=== PATIENT | male | born 1940 | race Caucasian/White ===

== ENCOUNTER 2018-03-05 09:22 | Emergency (ER) | payer MEDICARE, OTHER, SELFPAY | END 2018-03-05 12:45 | disposition home or self-care (01) | PROVIDERS: Emergency Provider Emergency Medicine; Visit Provider Emergency Medicine | DX: R07.89 Other chest pain (principal) | CPT/HCPCS: 71020; 71046; 80053; 84484; 85025; 85610; 85730; 93005; 93010; 96374; 99058; 99285; J1885 ==

== ENCOUNTER 2018-06-17 19:48 | Emergency (ER) | payer MEDICARE, OTHER, SELFPAY ==
[2018-06-17 19:52] VITALS: BP 147/67; PULSE 84; RESP 20; TEMP 37.2; O2SAT 97; BMI 23.1
--- NOTE | 2018-06-17 20:12 | ED.URI ---
HPI - URI/Sore Throat General Chief Complaint: Upper Respiratory Symptoms Stated Complaint: STATES HE HAS A COLD,SAYS TEMP IS 101 Time Seen by Provider: 06/17/18 20:12 Source: patient Mode of arrival: ambulatory Limitations: no limitations History of Present Illness HPI Narrative: The patient has been ill for about 3 days with congestion and cough. He had a sore throat initially but this has resolved. He has no ongoing sinus pressure or ear pain. His cough is nonproductive. He has a nonsmoker, he has no history of asthma. He is having no other ENT complaints, chest discomfort or abdominal symptoms. He did have an intermittent fever about 101?. He is afebrile and not coughing now. Related Data Home Medications Medication Instructions Recorded Confirmed clobetasol 0.05 TP PRN #0 03/06/13 multivitamin [Multiple Vitamins] 1 tab PO QDAY #0 03/06/13 atorvastatin [Lipitor] 10 mg PO QPM #0 07/05/16 cholecalciferol (vitamin D3) 1 tab PO QDAY #0 tab 08/03/16 [Vitamin D3] metoprolol succinate [Toprol XL] 25 mg PO QPM #0 03/05/18 Previous Rx's Medication Instructions Recorded metoprolol succinate 100 mg PO Q DAY #90 ea 12/01/16 warfarin [Coumadin] 2.5 - 5 mg PO QDAY #90 tab 09/14/17 Allergies Allergy/AdvReac Type Severity Reaction Status Date / Time No Known Drug Allergies Allergy Verified 06/17/18 19:55 Review of Systems Review of Systems All systems reviewed & are unremarkable except as noted in HPI and below Constitutional Denies chills, Denies fever(s), Denies headache(s), Denies lethargy and Denies weakness Eyes Denies change in vision, Denies eye discharge, Denies irritation and Denies loss of vision ENT Ears, Nose, Mouth, and Throat: Denies dizziness, Denies headache(s), Denies neck pain, Reports post nasal drip, Reports sore throat and Denies throat swelling Cardiovascular Denies chest pain, Denies irregular heart rhythm, Denies lightheadedness, Denies palpitations, Denies dyspnea, Denies dyspnea on exertion and Denies orthopnea Respiratory Reports cough, Denies dyspnea, Denies dyspnea on exertion and Denies wheezing Musculoskeletal Denies neck pain Neurologic Denies dizziness, Denies headache(s), Denies loss of vision and Denies weakness Endocrine Denies palpitations Allergic/Immunologic Denies throat swelling and Denies wheezing [facility] Surgical History Status post cholecystectomy Social History Smoking Status: Former smoker Exam Initial Vital Signs Initial Vital Signs: Vital Signs Temperature 98.9 F 06/17/18 19:52 Pulse Rate 84 06/17/18 19:52 Respiratory Rate 20 06/17/18 19:52 Blood Pressure 147/67 H 06/17/18 19:52 Pulse Oximetry 97 06/17/18 19:52 Const General: cooperative, comfortable and well developed Nutritional Appearance: well nourished Orientation: alert, awake, oriented x3 and not confused HENMT Head: normocephalic and atraumatic Ears: external ears normal, TM normal on the right and TM normal on the left (Clear fluid behind the left TM, no erythema is present.) Nose: external nose normal and No nasal discharge Face and sinus: sinuses nontender and face symmetric Mouth: oral mucosae normal and moist mucous membranes Throat: posterior oropharynx normal Eyes Conjunctivae: conjunctivae normal Neck Neck: full ROM, no meningeal signs and No lymphadenopathy Chest Chest: normal inspection of the chest Resp Effort & Inspection: normal respiratory effort and able to speak in complete sentences Auscultation: clear to auscultation bilaterally, no rales, no rhonchi and no wheezes Cardio Rate: regular rate Rhythm: regular rhythm Heart Sounds: no click, no gallops, no murmurs and no rubs Pulses: normal peripheral pulses Course Vital Signs - 8 hr 06/17/18 19:52 Temperature 98.9 F Pulse Rate 84 Respiratory Rate 20 Blood Pressure 147/67 H Pulse Oximetry 97 Discharge Plan Departure Patient Disposition: Home, Self-Care Clinical Impression: Upper respiratory infection, viral Discharge Date/Time: 06/17/18 20:28 Interventions: ED Discharge Assessment Last Done: 06/17/18 20:28 Instructions: DI for Viral Upper Respiratory Infection -- Adult Activity Restrictions/Additional Instructions: Shallow hour and steam year sinuses frequently. Mucinex as needed for congestion, follow package instructions. Return here if symptoms increase significantly, such as a productive cough or persistent fever. Prescriptions: No Action multivitamin [Multiple Vitamins] 1 EACH tablet 1 tab PO QDAY Qty: 0 RF: 0 clobetasol 0.05 % ointment 0.05 TP PRN Qty: 0 RF: 0 atorvastatin [Lipitor] 10 MG tablet 10 mg PO QPM Qty: 0 RF: 0 cholecalciferol (vitamin D3) [Vitamin D3] 2,000 UNIT tablet 1 tab PO QDAY Qty: 0 RF: 0 metoprolol succinate 100 MG tablet extended release 24 hr 100 mg PO Q DAY Qty: 90 RF: 3 warfarin [Coumadin] 5 MG tablet 2.5 - 5 mg PO QDAY Qty: 90 RF: 3 metoprolol succinate [Toprol XL] 25 MG tablet extended release 24 hr 25 mg PO QPM Qty: 0 RF: 0
== END 2018-06-17 20:28 | disposition home or self-care (01) ==
PROVIDERS: Emergency Provider Emergency Medicine; PCP Family Medicine
DX: J06.9 Acute upper respiratory infection, unspecified (principal); B97.89 Other viral agents as the cause of diseases classified elsewhere
CPT/HCPCS: 99282

== ENCOUNTER → 2018-07-23 08:44 | Outpatient (CLI) | payer MEDICARE, OTHER, SELFPAY | PROVIDERS: PCP Family Medicine; Visit Provider Urology | DX: R97.20 Elevated prostate specific antigen [PSA] (principal) | CPT/HCPCS: 36415; 84153 ==

== ENCOUNTER 2019-04-09 14:04 | Emergency (ER) | payer MEDICARE, OTHER, SELFPAY ==
[2019-04-09 14:07] VITALS: BP 133/77; PULSE 97; RESP 20; TEMP 37.1; O2SAT 97; BMI 21.7
[2019-04-09] MEDS: SODIUM CHLORIDE 0.9% 1,000 ML 150 ML IV (14:26)
[2019-04-09 14:31] LABS: Add Manual Diff / Slide Review NO; Basophils Absolute Auto 0 /uL (0-100); Basophils Percent Auto 0.7 % (0-2); Eosinophils Absolute Auto 200 /uL (0-450); Eosinophils Percent Auto 3.9 % (2-4); Hematocrit 40.2 % (41-53); Hemoglobin 13.6 g/dL (13.5-17.5); Lymphocytes Absolute Auto 1200 /uL (1100-4500); Mean Corpuscular HGB Conc 33.8 % (30-36); Mean Corpuscular Hemoglobin 29.9 PG (26-34); Mean Corpuscular Volume 88.3 fL (80-100); Monocytes Absolute Auto 500 /uL (0-900); Monocytes Percent Auto 8.6 % (3-14); Neutrophils Absolute Auto 3800 /uL (1500-7000); Neutrophils Percent Auto 65.8 % (50-75); Platelet Count 289 X10^3/uL (150-400); Red Blood Cell Count 4.56 X10^6/uL (4.5-5.9); Red Cell Distribution Width 14.2 % (11.6-14.8); White Blood Cell Count 5.7 X10^3/uL (4.5-11.0)
[2019-04-09 14:46] LABS: Blood Urea Nitrogen 16 mg/dL (9-20); Calcium 8.8 mg/dL (8.4-10.2); Carbon Dioxide 28 mmol/L (22-32); Chloride 103 mmol/L (98-107); Estimated Glomerular Filt Rate > 60.0 mL/min (>60); Glucose 95 mg/dL (80-110); HEMOLYSIS < 15 (0-50); Potassium 3.9 mmol/L (3.4-5.1); Sodium 136 mmol/L (137-145)
[2019-04-09 14:48] VITALS: BP 138/78; PULSE 80; RESP 14; O2SAT 95
--- NOTE | 2019-04-09 14:56 | DI.CT.S_ITS ---
PROCEDURE: CT HEAD/BRAIN WO CON INDICATIONS: dizzyness w/o trauma, does not change w/ position TECHNIQUE: Noncontrast 4.5 mm thick angled axial sections acquired from the foramen magnum to the vertex, with coronal and sagittal reformats. For radiation dose reduction, the following was used: automated exposure control, adjustment of mA and/or kV according to patient size. COMPARISON: None. FINDINGS: Image quality: Excellent. CSF spaces: Basal cisterns are patent. No extra-axial fluid collections. The ventricles are symmetric in size and shape. Brain: No intracranial bleeds or masses. There is cerebral volume loss for age, with resultant ventricular and sulcal prominence. There are periventricular and deep white matter chronic small vessel ischemic changes. There is intracranial internal carotid artery and vertebral artery atherosclerosis. Skull and face: Calvarium and visualized facial bones appear intact, without suspicious lesions. Sinuses: Mucosal thickening noted in the sphenoid sinuses and the anterior left ethmoid air cells. The mastoids are clear. IMPRESSION: No acute intracranial disease process. Dictated by: Shahida Elliott MD, PhD on 04/09/2019 at 15:15 Approved by: Shahida Elliott MD, PhD on 04/09/2019 at 15:17
[2019-04-09 14:58] LABS: Troponin I < 0.012 ng/mL (0.01-0.034)
[2019-04-09 16:25] VITALS: BP 121/73; PULSE 74; RESP 15; O2SAT 98
--- NOTE | 2019-04-11 19:10 | ED_ITS ---
HPI - Dizziness General Chief Complaint: Dizziness Stated Complaint: Dizziness t-2 Time Seen by Provider: 04/09/19 14:44 Source: patient Mode of arrival: ambulatory Limitations: no limitations History of Present Illness HPI Narrative: Patient states that he has felt somewhat lightheaded for the last couple of days. He states that he has occasionally had this feeling before, usually associated with his atrial fibrillation, but this time, it seems to have lasted a longer period patient states that he has noticed it most often when he bends over to pick things up, or when he rises from a sitting or lying position. Patient denies any chest pain or shortness of breath. No fevers or cough. No nausea or vomiting. No diarrhea. No dysuria or back pain. No changes to his medication doses recently. No other complaints at this time. Patient does note that perhaps he has not been drinking enough water. Related Data Home Medications Medication Instructions Recorded Confirmed clobetasol 1 applic TOPICAL BID PRN #0 03/06/13 04/09/19 multivitamin [Multiple Vitamins] 1 tab PO DAILY #0 03/06/13 04/09/19 atorvastatin [Lipitor] 10 mg PO QPM #0 07/05/16 04/09/19 cholecalciferol (vitamin D3) 2,000 unit PO DAILY #0 tab 08/03/16 04/09/19 [Vitamin D3] metoprolol succinate [Toprol XL] 25 mg PO QPM #0 03/05/18 04/09/19 Iron High Potency 27 mg PO DAILY 04/09/19 04/09/19 Ocuvite 30unit 5mg 150mg 1 cap PO DAILY 04/09/19 04/09/19 finasteride 5 mg PO Q OTHER DAY 04/09/19 04/09/19 metoprolol succinate 100 mg PO QAM 04/09/19 04/09/19 tamsulosin 0.4 mg PO DAILY 04/09/19 04/09/19 Previous Rx's Medication Instructions Recorded warfarin 5 mg tablet See Rx Instructions .ROUTE 11/01/18 .COMPLEX #90 tab Allergies Allergy/AdvReac Type Severity Reaction Status Date / Time No Known Drug Allergies Allergy Verified 04/09/19 14:07 Review of Systems Constitutional Denies chills, Denies fever(s), Denies lethargy and Denies weakness Eyes Denies change in vision, Denies eye discharge, Denies irritation and Denies loss of vision ENT Ears, Nose, Mouth, and Throat: Denies change in voice, Denies neck pain and Denies sore throat Cardiovascular Denies chest pain, Denies irregular heart rhythm, Reports lightheadedness, Denies palpitations, Denies dyspnea, Denies dyspnea on exertion and Denies orthopnea Respiratory Denies cough, Denies dyspnea, Denies dyspnea on exertion and Denies wheezing Gastrointestinal Gastrointestinal: Denies abdominal pain, Denies change in bowel habits, Denies diarrhea, Denies nausea and Denies vomiting Genitourinary Denies hematuria, Denies flank pain, Denies urinary incontinence and Denies urinary urgency Musculoskeletal Denies neck pain Integumentary/Breasts Denies pruritus, Denies erythema, Denies rash and Denies wounds Neurologic Denies confusion, Denies loss of vision and Denies weakness Psychiatric Denies anxiety, Denies confusion, Denies depression, Denies homicidal ideation and Denies suicidal ideation Endocrine Denies palpitations Hematologic/Lymphatic Denies easy bruising Allergic/Immunologic Denies wheezing [facility] Medical History Orthostatic lightheadedness (Acute) Acute dehydration (Acute) Atrial fibrillation (Acute) Atrial fibrillation with rapid ventricular response (Acute) Chest pressure (Acute) Pleural effusion (Acute) Atypical chest pain (Acute) 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) Incomplete emptying of bladder (02/16/16) 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) Essential hypertension (02/16/16) Chronic atrial fibrillation (01/02/18) Surgical History Status post cholecystectomy Social History Smoking Status: Former smoker Social History Smoking Status: Former smoker Exam Initial Vital Signs Initial Vital Signs: Vital Signs Temperature 98.7 F 04/09/19 14:07 Pulse Rate 97 H 04/09/19 14:07 Respiratory Rate 20 04/09/19 14:07 Blood Pressure 133/77 04/09/19 14:07 Pulse Oximetry 97 04/09/19 14:07 Const General: cooperative and well developed Nutritional Appearance: well nourished Orientation: alert, awake, oriented x3 and not confused [facility] Head: normocephalic and atraumatic Ears: external ears normal Nose: external nose normal and No nasal discharge Face and sinus: face symmetric and No dry mucous membranes Mouth: oral mucosae normal and moist mucous membranes Teeth and gingiva: dentition normal Eyes General: appearance normal, both eyes and all related structures Eyelids: eyelids normal Conjunctivae: conjunctivae normal Sclera: sclerae normal Pupils: PERRL EOM: EOM intact bilaterally Neck Neck: normal visual inspection, trachea midline, No lymphadenopathy, No midline deformity and No JVD Lymphatic: No lymphedema Chest Chest: normal inspection of the chest Resp Effort & Inspection: normal respiratory effort, able to speak in complete sentences, no respiratory distress and no use of accessory muscles Auscultation: clear to auscultation bilaterally, no rales, no rhonchi and no wheezes Cardio Rate: regular rate Rhythm: regular rhythm Heart Sounds: no click, no gallops, no murmurs and no rubs Pulses: normal peripheral pulses GI Inspection: non-distended Palpation: soft, no hepatosplenomegaly, No guarding, No pulsatile mass and No tender Auscultation: normal bowel sounds Back/Spine/Pelvis Back: No CVA tenderness Cervical Spine: cervical ROM normal and No pain with cervical ROM Thoracic/Lumbar Spine: thoracic and lumbar spine normal to inspection Skin General: no rashes or lesions noted, No jaundice and No petechiae Neuro General: alert, oriented x3, gait normal and no focal motor deficits Speech: speech normal Extrem General: full ROM, no clubbing, cyanosis or edema, no pedal edema and no calf tenderness Psych Appearance: well kempt Mental Status: mental status grossly normal Attitude: cooperative Thought Content: normal and suicidality Judgment: judgment good Course Course Narrative: The patient was stable and well-appearing in the emergency department. He was worked up with laboratory studies, head CT and EKG, and was given a L of 0.9 normal saline. Patient was found to be feeling better after the above interventions. No cause of the patient's lightheadedness was found, other than possibly some volume contraction and the atrial fibrillation, though patient was rate controlled. We have discussed the importance of drinking plenty of fluids, and we have also discussed the need for follow-up with the patient's primary care physician. Orders Ordered: Discontinued Medications Sodium Chloride (Normal Saline 0.9%) 1,000 mls @ 150 mls/hr IV CONT REN Last Infusion: 04/09/19 15:48 Dose: 0 mls/hr Infusion: 04/09/19 14:26 Dose: 1,000 mls/hr Admin: 04/09/19 14:26 Dose: 150 mls/hr Vital Signs - 8 hr 04/09/19 14:07 04/09/19 14:48 Temperature 98.7 F Pulse Rate 97 H 80 Respiratory Rate 20 14 Blood Pressure 133/77 Blood Pressure [Left Arm] 138/78 Pulse Oximetry 97 95 MDM - Dizziness Medical Records Attestation: I reviewed the patient's medical records. Lab Data Attestation: I reviewed the patient's lab results. Result diagrams: 04/09/19 14:20 04/09/19 14:20 Lab Results 04/09/19 04/09/19 Range/Units 14:20 14:20 WBC 5.7 (4.5-11.0) X10^3/uL RBC 4.56 (4.5-5.9) X10^6/uL Hgb 13.6 (13.5-17.5) g/dL Hct 40.2 L (41-53) % MCV 88.3 (80-100) fL MCH 29.9 (26-34) PG MCHC 33.8 (30-36) % RDW 14.2 (11.6-14.8) % Plt Count 289 (150-400) X10^3/uL Neut % (Auto) 65.8 (50-75) % Lymph % (Auto) 21.0 L (25-40) % [place] % (Auto) 8.6 (3-14) % Eos % (Auto) 3.9 (2-4) % Baso % (Auto) 0.7 (0-2) % Neut # (Auto) 3800 (8895-9160) /uL Lymph # (Auto) 1200 (1025-2693) /uL [place] # (Auto) 500 (0-900) /uL Eos # (Auto) 200 (0-450) /uL Baso # (Auto) 0 (0-100) /uL Sodium 136 L (137-145) mmol/L Potassium 3.9 (3.4-5.1) mmol/L Chloride 103 (98-107) mmol/L Carbon Dioxide 28 (22-32) mmol/L BUN 16 (9-20) mg/dL Creatinine 1.00 (0.66-1.25) mg/dL Estimated GFR > 60.0 (>60) mL/min BUN/Creatinine Ratio 16.0 (6-22) Glucose 95 (80-110) mg/dL Calcium 8.8 (8.4-10.2) mg/dL Troponin I < 0.012 (0.01-0.034) ng/mL Imaging Data CT scan - head: Radiologist's impression: Chart Viewer Diagnostics DATE TYPE STATUS AUTHOR Hx 04/09/19 14:56 Shahida Elliott David C 78, M0 1940 DEP ER, ED.LOC - Main ED 185.42cm 74.843kg BMI: 21.8kg/m? Dizziness Search Chart NF - Not included in interaction checking ONSET 02/16/16 02/16/16 02/16/16 02/16/16 01/02/18 04/09/19 16:25 Nestor Mercedes 78 M 1940 [place] [address] CT Scan Report Signed Patient: Nestor Mercedes CMR#: [id number] : 8Acct:[id number] Age/Sex: 78 / MDate of Service: 04/09/19 Loc: ED Accession Number: [id number] Procedure: CT head/brain wo con Ordering Provider: Kavitha Salmon P.A-C PROCEDURE: CT HEAD/BRAIN WO CON INDICATIONS: dizzyness w/o trauma, does not change w/ position TECHNIQUE: Noncontrast 4.5 mm thick angled axial sections acquired from the foramen magnum to the vertex, with coronal and sagittal reformats. For radiation dose reduction, the following was used: automated exposure control, adjustment of mA and/or kV according to patient size. COMPARISON: None. FINDINGS: Image quality: Excellent. CSF spaces: Basal cisterns are patent. No extra-axial fluid collections. The ventricles are symmetric in size and shape. Brain: No intracranial bleeds or masses. There is cerebral volume loss for age, with resultant ventricular and sulcal prominence. There are periventricular and deep white matter chronic small vessel ischemic changes. There is intracranial internal carotid artery and vertebral artery atherosclerosis. Skull and face: Calvarium and visualized facial bones appear intact, without suspicious lesions. Sinuses: Mucosal thickening noted in the sphenoid sinuses and the anterior left ethmoid air cells. The mastoids are clear. IMPRESSION: No acute intracranial disease process. Dictated by: Shahida Elliott MD, PhD on 04/09/2019 at 15:15 Approved by: Shahida Elliott MD, PhD on 04/09/2019 at 15:17 ECG Data Attestation: I personally reviewed and interpreted this ECG as follows: (See below) Interpretation: Twelve lead EKG performed April 01, 2019 at 2:12 p.m., as follows: Irregular ventricular rhythm with a rate of 86 beats per minute P waves undetectable QRS duration 87 millisecond QTC interval 410 millisecond Normal axis No significant ST T wave changes Interpretation: Atrial fibrillation with normal rate; no signs of acute ischemia; abnormal EKG as interpreted by ED MD. Discharge Plan Departure Patient Disposition: Home Clinical Impression: Orthostatic lightheadedness, Acute dehydration Discharge Date/Time: 04/09/19 17:02 Interventions: ED Discharge Assessment Last Done: 04/09/19 17:02 Instructions: DI for Dehydration -- Adult, DI for Dizziness-Nonvertigo Activity Restrictions/Additional Instructions: Your labs look good. Your EKG shows atrial fibrillation, but your heart rate is normal. It is very important that you drink plenty of water. This will prevent the lightheadedness you have been experiencing when you stand up or sit up. If you continue to have lightheadedness despite drinking at least a cups of water per day, you may need to talk to your doctor about your blood pressure medications, and whether they need to be changed. Prescriptions: No Action multivitamin [Multiple Vitamins] 1 EACH tablet 1 tab PO DAILY Qty: 0 RF: 0 clobetasol 0.05 % ointment 1 applic topical BID PRN (Reason: as directed) Qty: 0 RF: 0 atorvastatin [Lipitor] 10 MG tablet 10 mg PO QPM Qty: 0 RF: 0 cholecalciferol (vitamin D3) [Vitamin D3] 2,000 UNIT tablet 2,000 unit PO DAILY Qty: 0 RF: 0 metoprolol succinate [Toprol XL] 25 MG tablet extended release 24 hr 25 mg PO QPM Qty: 0 RF: 0 warfarin 5 mg tablet See Rx Instructions .ROUTE .COMPLEX Qty: 90 RF: 3 tamsulosin 0.4 mg capsule 0.4 mg PO DAILY RF: 0 finasteride 5 mg tablet 5 mg PO Q OTHER DAY RF: 0 metoprolol succinate 100 MG tablet extended release 24 hr 100 mg PO QAM RF: 0 Iron High Potency 27 mg tablet 27 mg PO DAILY RF: 0 Ocuvite 30unit 5mg 150mg 1 cap PO DAILY RF: 0 Referrals: Eloina Armenta DO [Primary Care Provider] -
== END 2019-04-09 17:02 | disposition home or self-care (01) ==
PROVIDERS: Emergency Provider Emergency Medicine; PCP Family Medicine
DX: I48.91 Unspecified atrial fibrillation (principal); R42 Dizziness and giddiness; E86.0 Dehydration
CPT/HCPCS: 36591; 70450; 80048; 84484; 85025; 93005; 96360; 99283; 99285

== ENCOUNTER → 2019-04-15 07:50 | Outpatient (CLI) | payer MEDICARE, OTHER, SELFPAY ==
--- NOTE | 2019-04-15 | DI.ECHO.S_ITS ---
[facility] +---------+ : : [address] : : : : [id number] : : : : Phone: [phone]+ Echocardiogram Report + + :Name: DOMINIC AGUILAR Study Date: 04/15/2019 Height: 73 in : :[facility] Weight: 173 lb : : Gender: Male BSA: 2.0 m2 : :: 1940 Age: 78 yrs BP: 110/60 mmHg: :Reason For Study: Atrial fibrillation : :Ordering Physician: Carlos : :Alexsandra Grant Performed By: Hermelinda Castro : :Referring: Eloina Armenta : + + Interpretation Summary 1) Normal left ventricular thickness, size, and systolic function (EF 55-60%). 2) There are no obvious focal wall motion abnormalities noted but poor endocardial definition reduces the sensitivity for the detection of such. 3) Grossly, mildly enlarged RV with normal function. 4) Moderately enlarrged biatria. 5) There is mild to moderate aortic stenosis (valve area 1.5cm2, mean gradient 7mmHg, severe ratio 0.36). 6) There is mild to moderate mitral regurgitation. 7) The ascending aorta is mildly enlarged at 4.2cm. 8) Compared to the Echo done 05/17/2016, mild to moderate aortic stenosis is present on this study. Procedure: A two-dimensional transthoracic echocardiogram with color flow and Doppler was performed. The study quality was technically good. Comparison is made with the echocardiogram of 05-17-16. The patient was in atrial fibrillation with heart rates between 79-89 bpm during the exam. Left Ventricle: The left ventricle is normal in size. There is normal left ventricular wall thickness. The ejection fraction is estimated to be 55-60%. Left ventricular systolic function is normal. There are no obvious focal wall motion abnormalities noted but poor endocardial definition reduces the sensitivity for the detection of such. Diastolic function could not be accurately assessed due to atrial fibrillation. Right Ventricle: Grossly, mildly enlarged RV with normal function. Atria: The left atrium is moderately dilated. The right atrium is moderately dilated. The interatrial septum is intact with no evidence for an atrial septal defect. Mitral Valve: The mitral valve leaflets appear mildly thickened, but open well. There is mild to moderate mitral regurgitation. Aortic Valve: The calculated aortic valve area is 1.5 cm2. The aortic valve area is 0.9 centimeters squared by planimetry. The peak aortic velocity is 1.7 m/sec. The peak aortic velocity on the previous exam was 1.9 m/sec. The aortic valve mean gradient is 7 mmHg. Severity ratio is 0.36. There is mild to moderate aortic stenosis. No aortic regurgitation is present. Tricuspid Valve: The tricuspid valve leaflets are thin and pliable. There is mild to moderate tricuspid regurgitation. The right ventricular systolic pressure is estimated to be at least 25 mmHg based on an estimated right atrial pressure of 3 mm Hg. Pulmonic Valve: The pulmonic valve is not well seen, but is grossly normal. There is no pulmonic valvular regurgitation. Great Vessels: The aortic root is normal size. The ascending aorta is mildly enlarged. There has been no significant change since the previous study. The aortic arch is mildly enlarged. The aortic arch measures similar compared to the previous study. The IVC is of normal diameter and collapses greater than 50% with a sniff. This suggests a low right atrial pressure of 3 mm Hg. Pericardium/ Pleura There is no pericardial effusion. There is no pleural effusion. MMode/2D Measurements & Calculations LVIDd: 4.5 cm LVOT diam: 2.3 cm LVIDs: 3.0 cm Ao root diam: 3.7 cm FS: 32.9 % Aortic Jxn: 3.1 cm EPSS: 0.53 cm asc Aorta Diam: 4.2 cm IVSd: 0.88 cm Ao Arch Diam (Prox Trans): 4.0 cm LVPWd: 0.90 cm LV whitaker. diameter/BSA (cm/m^2): 2.2 LV sys. diameter/BSA (cm/m^2): 1.5 LA dimension: 4.1 cm RA long axis: 6.2 cm LA A2 area: 27.2 cm2 RA area: 28.4 cm2 LA A4 area: 27.5 cm2 RA vol: 110.8 ml LA length (vol): 6.4 cm RA : 54.7 ml/m2 LA vol: 100.0 ml IVC diam: 2.0 cm LA vol index: 49.4 ml/m2 CIERRA (plan): 0.87 cm2 Doppler Measurements & Calculations Ao V2 max: 174.3 cm/sec LVOT Max Lazaro: 70.7 cm/sec Ao V2 mean: 126.2 cm/sec LV V1 max P.0 mmHg Ao max P.1 mmHg LV V1 VTI: 14.7 cm Ao mean P.2 mmHg CIERRA(I,D): 1.5 cm2 Ao V2 VTI: 40.6 cm CIERRA(V,D): 1.7 cm2 sev ratio: 0.36 CIERRA indexed to BSA (cm^2/m^2): 0.73 MV P1/2t: 49.7 msec TR max lazaro: 238.3 cm/sec MVA(VTI): 4.3 cm2 TR max P.7 mmHg MR ERO: 0.16 cm2 PA V2 max: 56.9 cm/sec PA V2 mean: 34.1 cm/sec PA mean P.58 mmHg PA Accel Time: 0.13 sec MV V2 mean: 50.7 cm/sec MV P1/2t max lazaro: 103.1 cm/sec MV mean P.5 mmHg MVA(P1/2t): 4.4 cm2 MV V2 VTI: 14.1 cm MR flow rate: 75.9 cm3/sec SV(LVOT): 60.2 ml MR PISA radius: 0.56 cm Reading Physician:12:45 PM
== END ==
PROVIDERS: PCP Family Medicine; Visit Provider Internal Medicine Cardiovascular Disease
DX: I08.3 Combined rheumatic disorders of mitral, aortic and tricuspid valves (principal); I77.89 Other specified disorders of arteries and arterioles; I48.91 Unspecified atrial fibrillation
CPT/HCPCS: 93306

== ENCOUNTER → 2019-04-22 07:52 | Outpatient (CLI) | payer MEDICARE, OTHER, SELFPAY ==
[2019-04-22 08:27] LABS: Add Manual Diff / Slide Review NO; Basophils Absolute Auto 0 /uL (0-100); Basophils Percent Auto 0.7 % (0-2); Eosinophils Absolute Auto 300 /uL (0-450); Hematocrit 42.4 % (41-53); Hemoglobin 14.3 g/dL (13.5-17.5); Lymphocytes Absolute Auto 1000 /uL (1100-4500); Lymphocytes Percent Auto 19.5 % (25-40); Mean Corpuscular HGB Conc 33.7 % (30-36); Mean Corpuscular Hemoglobin 29.8 PG (26-34); Mean Corpuscular Volume 88.5 fL (80-100); Monocytes Absolute Auto 500 /uL (0-900); Monocytes Percent Auto 10.3 % (3-14); Neutrophils Absolute Auto 3400 /uL (1500-7000); Neutrophils Percent Auto 64.5 % (50-75); Platelet Count 309 X10^3/uL (150-400); Red Blood Cell Count 4.79 X10^6/uL (4.5-5.9); Red Cell Distribution Width 14.7 % (11.6-14.8); White Blood Cell Count 5.3 X10^3/uL (4.5-11.0)
[2019-04-22 08:39] LABS: Prothrombin Time 23.4 SECONDS (10.1-12.7)
[2019-04-22 08:48] LABS: Blood Urea Nitrogen 16 mg/dL (9-20); Carbon Dioxide 31 mmol/L (22-32); Chloride 100 mmol/L (98-107); Cholesterol 127 mg/dL (140-199); Estimated Glomerular Filt Rate > 60.0 mL/min (>60); Glucose 105 mg/dL (80-110); HDL Cholesterol 37 mg/dL (40-60); HEMOLYSIS < 15 (0-50); LDL Cholesterol Calculated 65 mg/dL (<100); Sodium 137 mmol/L (137-145); Triglycerides 124 mg/dL (35-150)
== END ==
PROVIDERS: Nurse Practitioner; PCP Family Medicine; Visit Provider Internal Medicine Cardiovascular Disease
DX: I10 Essential (primary) hypertension (principal); I48.91 Unspecified atrial fibrillation; E78.5 Hyperlipidemia, unspecified
CPT/HCPCS: 36415; 80048; 80061; 85025; 85610

== ENCOUNTER → 2019-08-01 09:14 | Outpatient (CLI) | payer MEDICARE, OTHER, SELFPAY ==
[2019-08-01 11:15] LABS: Prostate Specific Antigen 1.99 ng/mL (0.10-4.00)
== END ==
PROVIDERS: Family Provider Family Medicine; PCP Family Medicine; Visit Provider Urology
DX: R97.20 Elevated prostate specific antigen [PSA] (principal)
CPT/HCPCS: 36415; 84153

== ENCOUNTER 2019-10-16 01:32 | Emergency (ER) | payer MEDICARE, OTHER, SELFPAY ==
[2019-10-16 01:40] VITALS: BP 158/86; PULSE 61; RESP 16; TEMP 36.6; O2SAT 96; BMI 22.8
--- NOTE | 2019-10-16 01:49 | DI.CT.S_ITS ---
PROCEDURE: CT HEAD/BRAIN WO CON INDICATIONS: vertigo symptoms when laying flat, not worse w/ movement TECHNIQUE: Noncontrast 4.5 mm thick angled axial sections acquired from the foramen magnum to the vertex, with coronal and sagittal reformats. For radiation dose reduction, the following was used: automated exposure control, adjustment of mA and/or kV according to patient size. COMPARISON: [facility], CT, CT HEAD/BRAIN WO CON, 04/09/2019, 14:59. FINDINGS: Image quality: Excellent. CSF spaces: Basal cisterns are patent. No extra-axial fluid collections. The ventricles are symmetric in size and shape. Brain: No intracranial bleeds or masses. There is cerebral volume loss for age, with resultant ventricular and sulcal prominence. There are periventricular and deep white matter chronic small vessel ischemic changes. There is intracranial internal carotid artery and vertebral artery atherosclerosis. Skull and face: Calvarium and visualized facial bones appear intact, without suspicious lesions. Sinuses: Mucosal thickening involving the anterior left ethmoid air cells and the sphenoid sinuses is stable compared to prior exam. The mastoids are clear. IMPRESSION: No acute intracranial disease process. Dictated by: Shahida Elliott MD, PhD on 10/16/2019 at 7:17 Approved by: Shahida Elliott MD, PhD on 10/16/2019 at 7:20
--- NOTE | 2019-10-16 01:50 | ED_ITS ---
HPI - Dizziness General Chief Complaint: Dizziness Stated Complaint: lightheaded, dizzy head spinning when he layed jd Time Seen by Provider: 10/16/19 01:34 Source: patient and old records reviewed Mode of arrival: Family Vehicle Limitations: no limitations History of Present Illness HPI Narrative: An 79-year-old male who comes in with complaint of lightheadedness which he states is typical for him. He also states it feels like the room is spinning when he lays down. He states that is new in started about 2 hours prior to arrival. He states only when he lays flat if he separate or even sitting up in a chair he does not appreciated. He states if he moves his head side to side or up and down does not worsening. He states he has not had this spinning sensation in the past. He does have history of tinnitus regularly but states he was in the [place] and then work at the [employer] and was been longstanding tinnitus. Denies fevers, had a little nasal congestion recently. No ear pain. He denies any vision changes other than occasional blurred vision. Denies any chest pain, no shortness of breath, no nausea or vomiting no other GI or new urinary symptoms. Patient denies any numbness, weakness, no difficulty with speech, no facial droop he has not appreciated any difficulty with walking. Patient states he is on warfarin for atrial fibrillation, he has not had any new medications. Related Data Home Medications Medication Instructions Recorded Confirmed clobetasol 1 applic TOPICAL BID PRN #0 03/06/13 08/09/19 multivitamin [Multiple Vitamins] 1 tab PO DAILY #0 03/06/13 08/09/19 atorvastatin [Lipitor] 10 mg PO QPM #0 07/05/16 08/09/19 cholecalciferol (vitamin D3) 2,000 unit PO DAILY #0 tab 08/03/16 08/09/19 [Vitamin D3] metoprolol succinate [Toprol XL] 25 mg PO QPM #0 03/05/18 08/09/19 Iron High Potency 27 mg PO DAILY 04/09/19 08/09/19 Ocuvite 30unit 5mg 150mg 1 cap PO DAILY 04/09/19 08/09/19 finasteride 5 mg PO Q OTHER DAY 04/09/19 08/09/19 metoprolol succinate 100 mg PO QAM 04/09/19 08/09/19 tamsulosin 0.4 mg PO DAILY 04/09/19 08/09/19 Previous Rx's Medication Instructions Recorded warfarin 5 mg tablet See Rx Instructions .ROUTE 11/01/18 .COMPLEX #90 tab meclizine 25 mg PO TID PRN #14 tab 10/16/19 Allergies Allergy/AdvReac Type Severity Reaction Status Date / Time No Known Drug Allergies Allergy Verified 08/09/19 10:05 Review of Systems Review of Systems ROS Unobtainable: All systems reviewed & are unremarkable except as noted in HPI and below Constitutional Constitutional: Denies chills, Denies fever(s), Denies frequent falls, Denies headache(s), Denies lethargy and Denies weakness Eyes Eyes: Reports blurry vision (Sometimes) ENT Ears, Nose, Mouth, and Throat: Reports vertigo, Denies ear discharge, Denies otalgia, Denies headache(s), Reports nasal congestion, Denies neck pain, Denies disequilibrium and Denies other (Facial droop) Cardiovascular Cardiovascular: Denies chest pain, Denies syncope, Denies rapid heart rate, Denies irregular heart rhythm, Denies lightheadedness, Denies radiating jaw, neck or arm pain, Denies palpitations, Denies dyspnea, Denies dyspnea on exertion and Denies orthopnea Respiratory Respiratory: Denies chest congestion, Denies cough, Denies dyspnea and Denies dyspnea on exertion Gastrointestinal Gastrointestinal: Denies abdominal pain, Denies change in bowel habits, Denies diarrhea, Denies nausea and Denies vomiting Genitourinary Genitourinary: Denies hematuria, Denies flank pain, Denies urinary frequency, Denies urinary hesitancy and Denies urinary urgency Musculoskeletal Musculoskeletal: Denies abnormal gait, Denies back pain, Denies limited range of motion, Denies muscle weakness, Denies neck pain, Denies numbness and Denies tingling Integumentary/Breasts Skin/Breast: Denies rash Neurologic Neurologic: Reports as per HPI, Denies abnormal movements, Denies abnormal speech, Denies abnormal gait, Denies confusion, Reports vertigo, Denies syncope, Denies frequent falls, Denies headache(s), Denies focal weakness, Denies numbness, Denies sensory deficit, Denies tingling, Denies paresthesias, Denies disequilibrium and Denies weakness Psychiatric Psychiatric: Denies confusion Endocrine Endocrine: Denies palpitations 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 HEENT: Atraumatic, pupils are equal round reactive to light, extraocular movem ents are intact, mild nytagmus on lateral gaze, nares are clear, TMs are clear with no fluid, there is no conjunctival pallor. Throat is clear without any exudates, erythema, tonsillar enlargement or uvular deviation, no facial droop. HEART: Regular rate and rhythm without murmur, clicks, rubs. No carotid bruits, pulses are equal in upper and lower extremities LUNGS:Lungs clear to auscultation, no wheezes, rales, crackles, chest moves symmetrically ABD:bowel sounds normal, soft, non-tender, no guarding, rebound, rigidity, no masses noted, no hepatosplenomegaly :No CVA tenderness MSCL: Non-tender, no muscle atrophy, muscles strength 5/5 upper and lower extremities, full range of motion, normal gait NEURO:CN 2-12 intact, sensation normal, reflexes 2/4 upper and lower extremities. finger nose finger test normal, heel gray test normal, romberg normal Initial Vital Signs Initial Vital Signs: Vital Signs Temperature 97.9 F 10/16/19 01:40 Pulse Rate 61 10/16/19 01:40 Respiratory Rate 16 10/16/19 01:40 Blood Pressure 158/86 H 10/16/19 01:40 Pulse Oximetry 96 10/16/19 01:40 Scores NIH Stroke Scale Level of Conciousness: Alert, keenly responsive Ask month/age: Answers both questions correctly. Open/close eyes, close hand: Performs both tasks correctly Best gaze horizontal: Normal Visual tang: No visual loss Facial palsy: Normal symetrical movement Left arm drift: No drift for full 10 sec Right arm drift: No drift for full 10 sec Left leg drift: No drift for full 10 sec Right leg drift: No drift for full 10 sec Sensory on face/arms/legs: Normal, no sensory loss Best language: No aphasia, normal Dysarthria: Normal Extinction or inattention: No abnormality Course Orders Ordered: ED Orders 10/16/19 01:49 CT head/brain wo con Stat EKG-12 Lead Stat 10/16/19 02:00 Complete Blood Count AUTO DIFF Stat Comprehensive Metabolic Panel Stat Prothrombin Time INR Stat Troponin I Stat 10/16/19 02:05 Urine Culture Stat Urine Microscopic Stat Discontinued Medications Sodium Chloride (Normal Saline 0.9%) 1,000 mls @ 1,000 mls/hr IV BOLUS ONE Stop: 10/16/19 02:48 Last Infusion: 10/16/19 03:00 Dose: 1,000 mls/hr Documented by: Admin: 10/16/19 01:55 Dose: 1,000 mls/hr Documented by: AMAURY Vital Signs Vital signs: Vital Signs - 8 hr 10/16/19 01:40 10/16/19 02:10 10/16/19 02:47 Temperature 97.9 F Pulse Rate 61 81 87 Respiratory Rate 16 16 21 Blood Pressure 158/86 H Blood Pressure [Left Arm] 143/83 H 139/70 Pulse Oximetry 96 97 97 10/16/19 03:05 Temperature Pulse Rate 88 Respiratory Rate 22 Blood Pressure Blood Pressure [Left Arm] 132/75 Pulse Oximetry 98 MDM - Dizziness Lab Data Attestation: I reviewed the patient's lab results. Result diagrams: 10/16/19 02:00 10/16/19 02:00 Labs: Lab Results 10/16/19 10/16/19 10/16/19 Range/Units 02:00 02:00 02:00 WBC 6.7 (4.5-11.0) X10^3/uL RBC 4.72 (4.5-5.9) X10^6/uL Hgb 14.1 (13.5-17.5) g/dL Hct 41.9 (41-53) % MCV 88.8 (80-100) fL MCH 29.8 (26-34) PG MCHC 33.6 (30-36) % RDW 14.6 (11.6-14.8) % Plt Count 295 (150-400) X10^3/uL Neut % (Auto) 61.6 (50-75) % Lymph % (Auto) 21.7 L (25-40) % [place] % (Auto) 11.3 (3-14) % Eos % (Auto) 4.0 (2-4) % Baso % (Auto) 1.4 (0-2) % Neut # (Auto) 4100 (7929-0322) /uL Lymph # (Auto) 1500 (8091-3332) /uL [place] # (Auto) 800 (0-900) /uL Eos # (Auto) 300 (0-450) /uL Baso # (Auto) 100 (0-100) /uL PT 23.8 H (10.1-12.7) SECONDS INR 2.0 H (0.9-1.3) Sodium 137 (137-145) mmol/L Potassium 4.2 (3.4-5.1) mmol/L Chloride 103 (98-107) mmol/L Carbon Dioxide 28 (22-32) mmol/L BUN 18 (9-20) mg/dL Creatinine 1.00 (0.66-1.25) mg/dL Estimated GFR > 60.0 (>60) mL/min BUN/Creatinine Ratio 18.0 (6-22) Glucose 94 (80-110) mg/dL Calcium 8.9 (8.4-10.2) mg/dL Total Bilirubin 1.3 (0.2-1.3) mg/dL AST 32 (17-59) IU/L ALT 26 (<50) IU/L Alkaline Phosphatase 93 (38-126) U/L Troponin I < 0.012 (0.01-0.034) ng/mL Total Protein 7.1 (6.3-8.2) g/dL Albumin 4.1 (3.5-5.0) g/dL Globulin 3.0 (1.7-4.1) g/dL Albumin/Globulin Ratio 1.4 (1.0-2.8) Urine RBC (0-5/HPF) Urine WBC (0-5/HPF) Ur Squamous Epith Cells (0-5/HPF) Urine Bacteria (None) Ur Culture Indicated? 10/16/19 Range/Units 02:05 WBC (4.5-11.0) X10^3/uL RBC (4.5-5.9) X10^6/uL Hgb (13.5-17.5) g/dL Hct (41-53) % MCV (80-100) fL MCH (26-34) PG MCHC (30-36) % RDW (11.6-14.8) % Plt Count (150-400) X10^3/uL Neut % (Auto) (50-75) % Lymph % (Auto) (25-40) % [place] % (Auto) (3-14) % Eos % (Auto) (2-4) % Baso % (Auto) (0-2) % Neut # (Auto) (0145-9060) /uL Lymph # (Auto) (9724-8404) /uL [place] # (Auto) (0-900) /uL Eos # (Auto) (0-450) /uL Baso # (Auto) (0-100) /uL PT (10.1-12.7) SECONDS INR (0.9-1.3) Sodium (137-145) mmol/L Potassium (3.4-5.1) mmol/L Chloride (98-107) mmol/L Carbon Dioxide (22-32) mmol/L BUN (9-20) mg/dL Creatinine (0.66-1.25) mg/dL Estimated GFR (>60) mL/min BUN/Creatinine Ratio (6-22) Glucose (80-110) mg/dL Calcium (8.4-10.2) mg/dL Total Bilirubin (0.2-1.3) mg/dL AST (17-59) IU/L ALT (<50) IU/L Alkaline Phosphatase (38-126) U/L Troponin I (0.01-0.034) ng/mL Total Protein (6.3-8.2) g/dL Albumin (3.5-5.0) g/dL Globulin (1.7-4.1) g/dL Albumin/Globulin Ratio (1.0-2.8) Urine RBC 0-1/hpf (0-5/HPF) Urine WBC 0-1/hpf (0-5/HPF) Ur Squamous Epith Cells 0-1 /hpf (0-5/HPF) Urine Bacteria None seen (None) Ur Culture Indicated? Specimen cultured Urine Dip Bedside Urine Glucose Negative Bedside Urine Bilirubin - Negative Bedside Urine Ketone - Negative Urine Specific [place] 1.010 Bedside Urine Occult Blood +/- Bedside Urine pH 6.5 Bedside Urine Protein - Negative Bedside Urine Urobilinogen - Negative Bedside Urine Nitrite - Negative Bedside Urine Leukocytes + [address] scan - head: Radiologist's impression: No hemorrhage, mass or infarct. Symmetric volume loss with small vessel ischemic change predominantly periventricular. Chronic sphenoid sinus disease. ECG Data Attestation: I personally reviewed and interpreted this ECG as follows: Prior ECG tracings: available for review Interpretation: Atrial fibrillation with a rate 82, QRS is 93 QTC is 407. No ST elevation or depression appreciated. Patient has prior EKG that appears similar from 04/09/2019 when patient was also in atrial fibrillation. [facility] Narrative Medical decision making narrative: Patient is feeling much improved and states when he laid down for the CT scan he did not have any vertigo-like symptoms. Patient's labs, head CT, EKG do not show any acute findings describing symptoms. On neurologic exam there are no clear findings CVA or neurologic emergency causing his symptoms today. He is feeling much better and would like to return home discussed he can try Antivert or meclizine, signs and symptoms to watch for reasons to return he has follow-up with his primary in the next 8 days but I encouraged him to follow up sooner if he is continuing to have symptoms. Stephanie mas was able to ambulate back and forth to the bathroom on several occasions without issue. He is feeling much better and feels comfortable to return home. Discharge Plan Departure Patient Disposition: Home Clinical Impression: Vertigo Discharge Date/Time: 10/16/19 03:10 Instructions: DI for Vertigo Activity Restrictions/Additional Instructions: Follow up with primary care and/or ENT in the next several days. Call for an appointment. You may take antivert or meclizine 1-2 tablets every 8 hours for vertigo symptoms. If you have fevers greater than 100.4 F, sudden severe headaches, passing out, rapidly worsening symptoms, sudden vision changes, new difficulty with speaking, new weakness, numbness or inability to use your arms legs or walk safely return to the emergency department. Prescriptions: New meclizine 25 mg tablet,chewable 25 mg PO TID PRN (Reason: motion sickness) Qty: 14 RF: 0 No Action multivitamin [Multiple Vitamins] 1 EACH tablet 1 tab PO DAILY Qty: 0 RF: 0 clobetasol 0.05 % ointment 1 applic topical BID PRN (Reason: as directed) Qty: 0 RF: 0 atorvastatin [Lipitor] 10 MG tablet 10 mg PO QPM Qty: 0 RF: 0 cholecalciferol (vitamin D3) [Vitamin D3] 2,000 UNIT tablet 2,000 unit PO DAILY Qty: 0 RF: 0 metoprolol succinate [Toprol XL] 25 MG tablet extended release 24 hr 25 mg PO QPM Qty: 0 RF: 0 warfarin 5 mg tablet See Rx Instructions .ROUTE .COMPLEX Qty: 90 RF: 3 tamsulosin 0.4 mg capsule 0.4 mg PO DAILY RF: 0 finasteride 5 mg tablet 5 mg PO Q OTHER DAY RF: 0 metoprolol succinate 100 MG tablet extended release 24 hr 100 mg PO QAM RF: 0 Iron High Potency 27 mg tablet 27 mg PO DAILY RF: 0 Ocuvite 30unit 5mg 150mg 1 cap PO DAILY RF: 0 Referrals: Lenard Abebe MD [Physician] - Eloina Armenta DO [Primary Care Provider] -
[2019-10-16] MEDS: SODIUM CHLORIDE 0.9% 1,000 ML 1000 ML IV (01:55)
[2019-10-16 02:07] LABS: Bacteria Urine None Seen
[2019-10-16 02:10] VITALS: BP 143/83; PULSE 81; RESP 16; O2SAT 97
[2019-10-16 02:12] LABS: Add Manual Diff / Slide Review NO; Basophils Absolute Auto 100 /uL (0-100); Basophils Percent Auto 1.4 % (0-2); Eosinophils Absolute Auto 300 /uL (0-450); Hematocrit 41.9 % (41-53); Hemoglobin 14.1 g/dL (13.5-17.5); Lymphocytes Absolute Auto 1500 /uL (1100-4500); Lymphocytes Percent Auto 21.7 % (25-40); Mean Corpuscular HGB Conc 33.6 % (30-36); Mean Corpuscular Hemoglobin 29.8 PG (26-34); Mean Corpuscular Volume 88.8 fL (80-100); Monocytes Absolute Auto 800 /uL (0-900); Monocytes Percent Auto 11.3 % (3-14); Neutrophils Absolute Auto 4100 /uL (1500-7000); Neutrophils Percent Auto 61.6 % (50-75); Platelet Count 295 X10^3/uL (150-400); Prothrombin Time 23.8 SECONDS (10.1-12.7); Red Blood Cell Count 4.72 X10^6/uL (4.5-5.9); Red Cell Distribution Width 14.6 % (11.6-14.8); White Blood Cell Count 6.7 X10^3/uL (4.5-11.0)
[2019-10-16 02:17] LABS: Alanine Aminotransferase 26 IU/L (<50); Albumin 4.1 g/dL (3.5-5.0); Albumin Globulin Ratio 1.4 (1.0-2.8); Alkaline Phosphatase 93 U/L (38-126); Aspartate Aminotransferase 32 IU/L (17-59); Bilirubin Total 1.3 mg/dL (0.2-1.3); Blood Urea Nitrogen 18 mg/dL (9-20); Calcium 8.9 mg/dL (8.4-10.2); Carbon Dioxide 28 mmol/L (22-32); Chloride 103 mmol/L (98-107); Estimated Glomerular Filt Rate > 60.0 mL/min (>60); Glucose 94 mg/dL (80-110); HEMOLYSIS < 15 (0-50); Potassium 4.2 mmol/L (3.4-5.1); Sodium 137 mmol/L (137-145); Total Protein 7.1 g/dL (6.3-8.2)
[2019-10-16 02:22] LABS: Culture Indicated Urine Specimen Cultured; RBC Urine 0-1/HPF (0-5/HPF); Squamous Epithelial Cell Urine 0-1 /HPF (0-5/HPF); WBC Urine 0-1/HPF (0-5/HPF)
[2019-10-16 02:29] LABS: Troponin I < 0.012 ng/mL (0.01-0.034)
[2019-10-16 02:47] VITALS: BP 139/70; PULSE 87; RESP 21; O2SAT 97
[2019-10-16 03:05] VITALS: BP 132/75; PULSE 88; RESP 22; O2SAT 98
== END 2019-10-16 03:10 | disposition home or self-care (01) ==
PROVIDERS: Emergency Provider Emergency Medicine; Family Provider Family Medicine; PCP Family Medicine
DX: R42 Dizziness and giddiness (principal); I48.91 Unspecified atrial fibrillation
CPT/HCPCS: 36415; 70450; 80053; 81003; 81015; 84484; 85025; 85610; 87086; 93005; 99283; 99285

== ENCOUNTER 2019-11-24 14:36 | Emergency (ER) | payer MEDICARE, OTHER, SELFPAY ==
[2019-11-24 14:39] VITALS: BP 147/82; PULSE 88; RESP 16; TEMP 36.8; O2SAT 97
[2019-11-24 15:23] LABS: Influenza A - CEPHEID Flu A NEGATIVE (NEGATIVE); Influenza B - CEPHEID Flu B NEGATIVE (NEGATIVE)
--- NOTE | 2019-11-24 16:45 | PC.NURSE ---
pt states, he is here due to not feeling well, intermittent dizziness, intermittent blurry vision. denies fever,vomiting. urine requested, ambulate to bathroom with steady gait.
[2019-11-24 16:46] VITALS: BP 151/95; PULSE 86; RESP 16; O2SAT 96
--- NOTE | 2019-11-24 17:01 | ED_ITS ---
HPI - Dizziness General Chief Complaint: Dizziness Stated Complaint: lightheaded, blurred vision, chills Time Seen by Provider: 11/24/19 16:10 Source: patient Mode of arrival: Ambulatory Limitations: no limitations History of Present Illness HPI Narrative: Patient comes emergency department complaining of occasional dizziness when he stands up, which he clarifies to be lightheadedness, as well as worsening of his chronic diplopia today. Patient states he has had a mild degree of diplopia ever since having cataract surgery on both eyes about a year and a half ago. 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 However, patient did not have any other neurologic symptoms. He states he has not been ill with anything. No nausea or vomiting. No headaches. No chest pain or shortness of breath. Patient states he is feeling well right now, and has no symptoms, other than his baseline diplopia. Related Data Home Medications Medication Instructions Recorded Confirmed clobetasol 1 applic TOPICAL BID PRN #0 03/06/13 11/08/19 multivitamin [Multiple Vitamins] 1 tab PO DAILY #0 03/06/13 11/08/19 atorvastatin [Lipitor] 10 mg PO QPM #0 07/05/16 11/08/19 cholecalciferol (vitamin D3) 2,000 unit PO DAILY #0 tab 08/03/16 11/08/19 [Vitamin D3] Iron High Potency 27 mg PO DAILY 04/09/19 11/08/19 Ocuvite 30unit 5mg 150mg 1 cap PO DAILY 04/09/19 11/08/19 metoprolol succinate 100 mg PO QAM 04/09/19 11/08/19 Previous Rx's Medication Instructions Recorded warfarin 5 mg tablet See Rx Instructions .ROUTE 11/01/18 .COMPLEX #90 tab meclizine 25 mg PO TID PRN #14 tab 10/16/19 finasteride 5 mg tablet 5 mg PO Q OTHER DAY #90 tab 11/08/19 metoprolol succinate 25 mg 25 mg PO QPM #90 tab 11/08/19 tablet,extended release 24 hr tamsulosin 0.4 mg capsule 0.4 mg PO DAILY #90 cap 11/08/19 Allergies Allergy/AdvReac Type Severity Reaction Status Date / Time No Known Drug Allergies Allergy Verified 12/27/19 09:21 Review of Systems Constitutional Constitutional: Denies chills, Denies fatigue, Denies fever(s), Denies frequent falls, Denies lethargy and Denies weakness Eyes Eyes: Denies change in vision, Denies eye discharge, Denies irritation and Denies loss of vision ENT Ears, Nose, Mouth, and Throat: Denies change in voice, Reports dizziness, Denies neck pain, Denies sore throat and Denies throat swelling Cardiovascular Cardiovascular: Denies chest pain, Denies irregular heart rhythm, Reports lightheadedness, Denies palpitations, Denies dyspnea, Denies dyspnea on exertion and Denies orthopnea Respiratory Respiratory: Denies cough, Denies dyspnea, Denies dyspnea on exertion and Denies wheezing Gastrointestinal Gastrointestinal: Denies abdominal pain, Denies change in bowel habits, Denies diarrhea, Denies nausea and Denies vomiting Genitourinary Genitourinary: Denies hematuria, Denies flank pain, Denies urinary incontinence and Denies urinary urgency Musculoskeletal Musculoskeletal: Denies back pain, Denies muscle weakness, Denies neck pain, Denies numbness and Denies tingling Integumentary/Breasts Skin/Breast: Denies pruritus, Denies erythema, Denies rash and Denies wounds Neurologic Neurologic: Denies behavioral changes, Denies confusion, Reports dizziness, Denies frequent falls, Denies loss of vision, Denies numbness, Denies tingling and Denies weakness Psychiatric Psychiatric: Denies anxiety, Denies behavioral changes, Denies confusion, Denies depression, Denies homicidal ideation and Denies suicidal ideation Endocrine Endocrine: Denies fatigue, Denies flushing and Denies palpitations Hematologic/Lymphatic Hematologic/Lymphatic: Denies easy bruising Allergic/Immunologic Allergic/Immunologic: Denies urticaria, Denies throat swelling and Denies wheezing 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) Chest pressure (Acute) Chronic atrial fibrillation (01/02/18) Essential hypertension (02/16/16) Incomplete emptying of bladder (04/05/16) Orthostatic lightheadedness (Inactive) Pleural effusion (Acute) Surgical History Status post cholecystectomy Social History Smoking Status: Former smoker Smoking Status: Former smoker alcohol intake frequency: 0-2 drinks per day Substance Use Type: does not use Exam Initial Vital Signs Initial Vital Signs: Vital Signs Temperature 98.2 F 11/24/19 14:39 Pulse Rate 88 11/24/19 14:39 Respiratory Rate 16 11/24/19 14:39 Blood Pressure 147/82 H 11/24/19 14:39 Pulse Oximetry 97 11/24/19 14:39 Const General: cooperative and well developed Nutritional Appearance: well nourished HENMO Head: normocephalic and atraumatic Ears: external ears normal Nose: external nose normal and No nasal discharge Face and sinus: face symmetric and No dry mucous membranes Mouth: oral mucosae normal and moist mucous membranes Teeth and gingiva: dentition normal Eyes General: appearance normal, both eyes and all related structures Eyelids: eyelids normal Conjunctivae: conjunctivae normal Sclera: sclerae normal Pupils: PERRL EOM: EOM intact bilaterally Neck Neck: normal visual inspection, trachea midline, No lymphadenopathy, No midline deformity and No JVD Lymphatic: No lymphedema Chest Chest: normal inspection of the chest Resp Effort & Inspection: normal respiratory effort, able to speak in complete sentences, no respiratory distress and no use of accessory muscles Auscultation: clear to auscultation bilaterally, no rales, no rhonchi and no wheezes Cardio Rate: regular rate Rhythm: regular rhythm Heart Sounds: no click, no gallops, no murmurs and no rubs Pulses: normal peripheral pulses GI Inspection: non-distended Palpation: soft, no hepatosplenomegaly, No guarding, No pulsatile mass and No tender Back/Spine/Pelvis Back: No CVA tenderness Cervical Spine: cervical ROM normal and No pain with cervical ROM Thoracic/Lumbar Spine: thoracic and lumbar spine normal to inspection Skin General: no rashes or lesions noted, No jaundice and No petechiae Neuro General: alert, oriented x3, gait normal and no focal motor deficits Speech: speech normal Extrem General: full ROM, no clubbing, cyanosis or edema, no pedal edema and no calf tenderness Psych Appearance: well kempt Mental Status: mental status grossly normal Attitude: cooperative Thought Content: normal and suicidality Judgment: judgment good Course Course Course Narrative: The patient was asymptomatic in the emergency department, and I did not feel that his symptoms were consistent with a CVA. The patient had had diplopia for an extended period of time, and it started with his cataract surgery. He reported episodic lightheadedness, but not having any acute sympt oms at this point. As such, I did not feel that further workup was indicated in the emergency department. An influenza swab has been collected by nursing staff upon the patient's arrival, and this was negative. Orders Ordered: ED Orders 11/24/19 14:40 Influenza A & B (PCR) Stat Vital Signs Vital signs: Vital Signs - 8 hr 11/24/19 14:39 11/24/19 16:46 Temperature 98.2 F Pulse Rate 88 86 Respiratory Rate 16 16 Blood Pressure 147/82 H Blood Pressure [Right Arm] 151/95 H Pulse Oximetry 97 96 MDM - Dizziness Medical Records Attestation: I reviewed the patient's medical records. Lab Data Attestation: I reviewed the patient's lab results. Labs: Lab Results 11/24/19 Range/Units 14:40 Influenza A (RT-PCR) Flu a negative (NEGATIVE) Influenza B (RT-PCR) Flu b negative (NEGATIVE) Discharge Plan Departure Patient Disposition: Home Clinical Impression: Diplopia Discharge Date/Time: 11/24/19 17:43 Instructions: DI for Double Vision Activity Restrictions/Additional Instructions: Your influenza test is negative today. There is no evidence of a stroke or more serious condition going on at this time. It is important that you follow-up with the elementary reading specialist to determine what is going on with your double vision. Please call the number given below to get this appointment set up. Prescriptions: No Action multivitamin [Multiple Vitamins] 1 EACH tablet 1 tab PO DAILY Qty: 0 RF: 0 clobetasol 0.05 % ointment 1 applic topical BID PRN (Reason: as directed) Qty: 0 RF: 0 atorvastatin [Lipitor] 10 MG tablet 10 mg PO QPM Qty: 0 RF: 0 cholecalciferol (vitamin D3) [Vitamin D3] 2,000 UNIT tablet 2,000 unit PO DAILY Qty: 0 RF: 0 warfarin 5 mg tablet See Rx Instructions .ROUTE .COMPLEX Qty: 90 RF: 3 finasteride 5 mg tablet 5 mg PO Q OTHER DAY Qty: 90 RF: 3 metoprolol succinate [Toprol XL] 25 mg tablet extended release 24 hr 25 mg PO QPM Qty: 90 RF: 3 tamsulosin 0.4 mg capsule 0.4 mg PO DAILY Qty: 90 RF: 3 metoprolol succinate 100 MG tablet extended release 24 hr 100 mg PO QAM RF: 0 Iron High Potency 27 mg tablet 27 mg PO DAILY RF: 0 Ocuvite 30unit 5mg 150mg 1 cap PO DAILY RF: 0 meclizine 25 mg tablet,chewable 25 mg PO TID PRN (Reason: motion sickness) Qty: 14 RF: 0 Referrals: [facility] [Provider Group] Eloina Armenta DO [Primary Care Provider] -
== END 2019-11-24 17:43 | disposition home or self-care (01) ==
PROVIDERS: Emergency Provider Emergency Medicine; Family Provider Family Medicine; PCP Family Medicine
DX: H53.2 Diplopia (principal)
CPT/HCPCS: 87502; 99282

== ENCOUNTER → 2019-12-03 08:40 | Outpatient (CLI) | payer MEDICARE, OTHER, SELFPAY ==
[2019-12-03 09:43] LABS: Alanine Aminotransferase 21 IU/L (<50); Albumin 3.9 g/dL (3.5-5.0); Albumin Globulin Ratio 1.3 (1.0-2.8); Alkaline Phosphatase 91 U/L (38-126); Aspartate Aminotransferase 25 IU/L (17-59); BUN Creatinine Ratio 16.4 (6-22); Bilirubin Total 1.8 mg/dL (0.2-1.3); Blood Urea Nitrogen 18 mg/dL (9-20); Carbon Dioxide 29 mmol/L (22-32); Chloride 102 mmol/L (98-107); Cholesterol 142 mg/dL (140-199); Estimated Glomerular Filt Rate > 60.0 mL/min (>60); Glucose 93 mg/dL (80-110); HDL Cholesterol 46 mg/dL (40-60); HEMOLYSIS < 15 (0-50); LDL Cholesterol Calculated 72 mg/dL (<100); Potassium 4.6 mmol/L (3.4-5.1); Sodium 137 mmol/L (137-145); Total Protein 6.9 g/dL (6.3-8.2); Triglycerides 118 mg/dL (35-150)
== END ==
PROVIDERS: PCP Family Medicine; Visit Provider Family Medicine
DX: H81.10 Benign paroxysmal vertigo, unspecified ear (principal); I10 Essential (primary) hypertension; I48.91 Unspecified atrial fibrillation; N40.0 Benign prostatic hyperplasia without lower urinary tract symptoms; E78.5 Hyperlipidemia, unspecified
CPT/HCPCS: 36415; 80053; 80061

== ENCOUNTER 2020-02-23 19:12 | Emergency (ER) | payer MEDICARE, OTHER, SELFPAY ==
--- NOTE | 2020-02-23 19:16 | ED_ITS ---
HPI - Neuro Symptoms/Deficit General Chief Complaint: Neuro Symptoms/Deficit Stated Complaint: Double vision/ unstable on feet Time Seen by Provider: 02/23/20 19:15 Source: patient Mode of arrival: Ambulatory Limitations: no limitations History of Present Illness HPI Narrative: This is an 79-year-old male comes to the emergency department with complaint of double vision that lasted about a minute and half to 2 minutes and feeling a little unsteady in his feet. He states he is walking fine but he just feels a little bit off balance. He states symptoms were at 6:00 p.m. this evening. His double vision has resolved. He states he had 1 similar event in November he was discharged home and states he was told to come back if he ever had again. He denies a headache, he denies any difficulty with speech, he den ies any facial droop, he denies any numbness, tingling or weakness. He denies any difficulty with use of his extremities. He denies any chest pain or shortness of breath. He denies any nausea, no vomiting, no other GI or urinary symptoms. Patient states that he has not had any eye pain, discharge or other issues. He did cover each eye independently while this was occurring and noted that it was although when he was looking with monocular vision but then when he would look with both binocular vision the diplopia was still present. Patient does take warfarin for atrial fibrillation, he takes metoprolol as well as tamsulosin and atorvastatin. He denies any prior cardiac stents or CABG. He has not had any prior strokes that he is aware of. He denies tobacco, alcohol or illicit. He has had his gallbladder removed. He follows with Dr. Pinto as his primary care. Related Data Home Medications Medication Instructions Recorded Confirmed multivitamin [Multiple Vitamins] 1 tab PO DAILY #0 03/06/13 12/10/19 atorvastatin [Lipitor] 10 mg PO QPM #0 07/05/16 12/10/19 cholecalciferol (vitamin D3) 2,000 unit PO DAILY #0 tab 08/03/16 12/10/19 [Vitamin D3] Iron High Potency 27 mg PO DAILY 04/09/19 12/10/19 Ocuvite 30unit 5mg 150mg 1 cap PO DAILY 04/09/19 12/10/19 metoprolol succinate 100 mg PO QAM 04/09/19 12/10/19 Previous Rx's Medication Instructions Recorded meclizine 25 mg PO TID PRN #14 tab 10/16/19 finasteride 5 mg tablet 5 mg PO Q OTHER DAY #90 tab 11/08/19 metoprolol succinate 25 mg 25 mg PO QPM #90 tab 11/08/19 tablet,extended release 24 hr tamsulosin 0.4 mg capsule 0.4 mg PO DAILY #90 cap 11/08/19 clobetasol 0.05 % topical ointment 1 applic TOPICAL BID PRN #30 gram 12/10/19 warfarin 5 mg tablet See Rx Instructions .ROUTE 12/25/19 .COMPLEX #90 tab Allergies Allergy/AdvReac Type Severity Reaction Status Date / Time No Known Drug Allergies Allergy Verified 12/10/19 14:17 Review of Systems Review of Systems 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 HEENT: Atraumatic, pupils are equal round reactive to light, extraocular movem ents are intact, nares are clear, TMs are clear with no fluid, there is no conjunctival pallor. Throat is clear without any exudates, erythema, tonsillar enlargement or uvular deviation Visual acuity: right [20/20], left [20/20] without correction. General: no globe trauma Eyelids: normal inspection. Conjunctiva/Sclera: normal inspection Corneas: normal inspection. EOM: intact, no palsy/entrapment Pupils: PERRL, normal accomadation, pupil normal Anterior Chambers: normal inspection, no hypema Posterior: normal fundoscopic bilaterally although difficult HEART: Regular rate and rhythm without murmur, clicks, rubs. Pulses are equal in upper extremities LUNGS:Lungs clear to auscultation, no wheezes, rales, crackles, chest moves symmetrically ABD:bowel sounds normal, soft, non-tender, no guarding, rebound, rigidity, no masses noted, no hepatosplenomegaly :No CVA tenderness MSCL: Non-tender, no muscle atrophy, muscles strength 5/5 upper and lower extremities, full range of motion, normal gait NEURO:CN 2-12 intact, sensation normal, finger nose finger test normal, heel gray test normal, romberg normal Initial Vital Signs Initial Vital Signs: Vital Signs Temperature 97.9 F 02/23/20 19:21 Pulse Rate 84 02/23/20 19:21 Respiratory Rate 16 02/23/20 19:21 Blood Pressure 187/91 H 02/23/20 19:21 Pulse Oximetry 95 02/23/20 19:21 Scores NIH Stroke Scale Level of Conciousness: Alert, keenly responsive Ask month/age: Answers both questions correctly. Open/close eyes, close hand: Performs both tasks correctly Best gaze horizontal: Normal Visual tang: No visual loss Facial palsy: Normal symetrical movement Left arm drift: No drift for full 10 sec Right arm drift: No drift for full 10 sec Left leg drift: No drift for full 10 sec Right leg drift: No drift for full 10 sec Limb ataxia: Absent Sensory on face/arms/legs: Normal, no sensory loss Best language: No aphasia, normal Dysarthria: Normal Extinction or inattention: No abnormality Total NIH Stroke scale score: 0 Course Orders Ordered: ED Orders 02/23/20 19:29 CT Stroke Stat EKG-12 Lead Stat 02/23/20 19:30 Basic Metabolic Panel Stat Complete Blood Count AUTO DIFF Stat Partial Thromboplastin Time Stat Prothrombin Time INR Stat Troponin & CK Cardiac Panel Stat 02/23/20 19:34 CT angio head and neck Stat 02/23/20 20:00 Urine Culture Stat Urine Microscopic Stat Discontinued Medications Sodium Chloride (Normal Saline 0.9%) 1,000 mls @ 1,000 mls/hr IV BOLUS ONE Stop: 02/23/20 20:27 Last Infusion: 02/23/20 21:14 Dose: 0 mls/hr Documented by: Admin: 02/23/20 19:37 Dose: 1,000 mls/hr Documented by: VIGNESH Vital Signs Vital signs: Vital Signs - 8 hr 02/23/20 19:21 02/23/20 20:04 02/23/20 21:15 Temperature 97.9 F Pulse Rate 84 82 79 Respiratory Rate 16 18 20 Blood Pressure 187/91 H 159/83 H Blood Pressure [Left Arm] 172/83 H Pulse Oximetry 95 99 97 MDM - Neuro Symptoms/Deficit Lab Data Attestation: I reviewed the patient's lab results. Result diagrams: 02/23/20 19:30 02/23/20 19:30 Labs: Lab Results 02/23/20 02/23/20 02/23/20 Range/Units 19:30 19:30 19:30 WBC 7.0 (4.5-11.0) X10^3/uL RBC 4.75 (4.5-5.9) X10^6/uL Hgb 14.1 (13.5-17.5) g/dL Hct 43.1 (41-53) % MCV 90.8 (80-100) fL MCH 29.7 (26-34) PG MCHC 32.7 (30-36) % RDW 14.5 (11.6-14.8) % Plt Count 292 (150-400) X10^3/uL Neut % (Auto) 69.8 (50-75) % Lymph % (Auto) 15.7 L (25-40) % [place] % (Auto) 10.4 (3-14) % Eos % (Auto) 3.5 (2-4) % Baso % (Auto) 0.6 (0-2) % Neut # (Auto) 4900 (1300-6383) /uL Lymph # (Auto) 1100 (4822-0808) /uL [place] # (Auto) 700 (0-900) /uL Eos # (Auto) 200 (0-450) /uL Baso # (Auto) 0 (0-100) /uL PT 30.0 H (10.1-12.7) SECONDS INR 2.6 H (0.9-1.3) APTT 47 H (26.4-36.2) SECONDS Sodium (137-145) mmol/L Potassium (3.4-5.1) mmol/L Chloride (98-107) mmol/L Carbon Dioxide (22-32) mmol/L BUN (9-20) mg/dL Creatinine (0.66-1.25) mg/dL Estimated GFR (>60) mL/min BUN/Creatinine Ratio (6-22) Glucose (80-110) mg/dL Calcium (8.4-10.2) mg/dL Total Creatine Kinase 55 (55-170) U/L CK-MB (CK-2) TNP CK-MB (CK-2) Rel Index TNP Troponin I < 0.012 (0.01-0.034) ng/mL Urine RBC (0-5/HPF) Urine WBC (0-5/HPF) Ur Squamous Epith Cells (0-5/HPF) Urine Bacteria (None) Ur Culture Indicated? 02/23/20 02/23/20 Range/Units 19:30 20:00 WBC (4.5-11.0) X10^3/uL RBC (4.5-5.9) X10^6/uL Hgb (13.5-17.5) g/dL Hct (41-53) % MCV (80-100) fL MCH (26-34) PG MCHC (30-36) % RDW (11.6-14.8) % Plt Count (150-400) X10^3/uL Neut % (Auto) (50-75) % Lymph % (Auto) (25-40) % [place] % (Auto) (3-14) % Eos % (Auto) (2-4) % Baso % (Auto) (0-2) % Neut # (Auto) (6799-9183) /uL Lymph # (Auto) (5047-0112) /uL [place] # (Auto) (0-900) /uL Eos # (Auto) (0-450) /uL Baso # (Auto) (0-100) /uL PT (10.1-12.7) SECONDS INR (0.9-1.3) APTT (26.4-36.2) SECONDS Sodium 139 (137-145) mmol/L Potassium 4.1 (3.4-5.1) mmol/L Chloride 106 (98-107) mmol/L Carbon Dioxide 25 (22-32) mmol/L BUN 23 H (9-20) mg/dL Creatinine 1.22 (0.66-1.25) mg/dL Estimated GFR 57.0 L (>60) mL/min BUN/Creatinine Ratio 18.9 (6-22) Glucose 103 (80-110) mg/dL Calcium 8.7 (8.4-10.2) mg/dL Total Creatine Kinase (55-170) U/L CK-MB (CK-2) CK-MB (CK-2) Rel Index Troponin I (0.01-0.034) ng/mL Urine RBC 1-5/hpf (0-5/HPF) Urine WBC 1-5/hpf (0-5/HPF) Ur Squamous Epith Cells 0-1 /hpf (0-5/HPF) Urine Bacteria Occasional (0-1) (None) Ur Culture Indicated? Specimen cultured Point of Care Testing Glucose POC 90 Urine Dip Bedside Urine Glucose Negative Bedside Urine Bilirubin - Negative Bedside Urine Ketone - Negative Urine Specific [place] 1.015 Bedside Urine Occult Blood - Negative Bedside Urine pH 6.0 Bedside Urine Protein - Negative Bedside Urine Urobilinogen - Negative Bedside Urine Nitrite - Negative Bedside Urine Leukocytes + [address] scan - head: Radiologist's Impression: [place] [address] CT Scan Report Signed Patient: Nestor Mercedes CMR#: [id number] : 8Acct:[id number] Age/Sex: 79 / MDate of Service: 02/23/20 Loc: ED Accession Number: [id number] Procedure: CT Stroke Ordering Provider: Nahomi Chavira D.O. PROCEDURE: CT STROKE INDICATIONS: double vision resolved, feels a little unsteady TECHNIQUE: Noncontrast 4.5 mm thick angled axial sections acquired from the foramen magnum to the vertex, with coronal reformats. For radiation dose reduction, the following was used: automated exposure control, adjustment of mA and/or kV according to patient size. COMPARISON: None. FINDINGS: Image quality: Excellent. CSF spaces: Basal cisterns are patent. No extra-axial fluid collections. Ventricles are normal in size and shape. Brain: No midline shift. No intracranial masses or hemorrhage. Duenas-white matter interface is normal. Skull and face: Calvarium and visualized facial bones are intact, without suspicious lesions. Sinuses: Visualized sinuses and mastoids are clear. IMPRESSION: Mild microvascular atherosclerotic change in the deep white matter of each hemisphere, no sign of hemorrhage or mass, or stroke. Note: This study was not requested in the circumstance of anticipated TPA administration. Dictated by: Ishan Osorio M.D. on 02/23/2020 at 20:31 Approved by: Ishan Osorio M.D. on 02/23/2020 at 20:32 CT head and neck angio: Radiologist's Impression: [place] [address] CT Scan Report Signed Patient: Nestor Mercedes CMR#: [id number] : 8Acct:[id number] Age/Sex: 79 / MDate of Service: 02/23/20 Loc: ED Accession Number: [id number] Procedure: CT angio head and neck Ordering Provider: Nahomi Chavira D.O. PROCEDURE: CT ANGIO HEAD AND NECK INDICATIONS: diploplia, resolved, feels unsteady TECHNIQUE: Pre-contrast 4.5 mm thick sections acquired from the foramen magnum to the vertex. After the administration of intravenous contrast, 1 mm thick sections acquired from the aortic arch through the [place] of [place]. Post-contrast 4.5 mm thick sections then re- acquired from the foramen magnum to the vertex. 3-dimensional vaiehyv-wehqtijma-dbahcjnovx (MIP) and/or volume rendering reformats were acquired of the central intracranial vasculature and neck separately. COMPARISON: None. FINDINGS: Image quality: Excellent. BRAIN: CSF spaces: Ventricles are normal in size and shape. Basal cisterns are pa tent. No extra-axial fluid collections. Brain: No midline shift. No intracranial bleeds or masses. Duenas-white matter interface appears intact. Skull and face: Calvarium and facial bones appear intact, without suspicious lesions. Orbits appear normal. Sinuses: Sinuses and mastoids are clear. HEAD CT ANGIOGRAPHY: Anterior circulation: Intracranial internal carotid arteries are normal in size and flow. The flow within the paired anterior cerebral arteries is normal and symmetric. The flow within the middle cerebral arteries is normal and symmetric. The anterior communicating artery is seen. No aneurysms are seen. Posterior circulation: Visualized portions of the vertebral arteries demonstrate normal caliber, and join to form a normal appearing basilar artery. Flow within the posterior cerebral arteries is normal and symmetric. No aneurysms are seen. NECK CT ANGIOGRAPHY: Carotid system: The great vessels demonstrate a conventional anatomy as they arise from the aortic arch. The origins of the common carotid arteries appear patent. The common carotid arteries demonstrate normal caliber and courses. The bifurcation regions are both widely patent. The internal carotid arteries demonstrate normal calibers and courses. Posterior circulation: The origins of the vertebral arteries both appear widely patent. The more superior extracranial portions of both vertebral arteries also demonstrate normal courses and calibers. They join to form a normal appearing basilar artery. Soft tissues: Visualized neck soft tissues demonstrate no suspicious abnormalities. Bones: No suspicious bony lesions. Visualized cervical spine appears normally aligned. IMPRESSION: No stenosis or aneurysm found. No evidence of cervical or skull base arterial dissection. No embolic disease is identified. Any quantitative measurements of stenosis were performed using NASCET criteria. Dictated by: Ishan Osorio M.D. on 02/23/2020 at 20:41 Approved by: Ishan Osorio M.D. on 02/23/2020 at 20:43 ECG Data Attestation: I personally reviewed and interpreted this ECG as follows: Prior ECG tracings: not available for review Interpretation: Atrial fibrillation rate 84 QRS 89 QTC of 404. No acute ST elevation or depression noted. Patient has prior EKG was similar ST segments. [facility] Narrative Medical decision making narrative: Patient was labs show CBC with no acute, INR of 2.6, patient BUN elevated at 23, normal lytes and creatinine, troponin is negative. Patient urine is positive for leuks, cultures but patient has not had symptoms consistent with urine infection and would wait for culture which is pending. Head CT shows mild microvascular atherosclerotic change in the deep white matter each hemisphere no sign of hemorrhage or mass or stroke. And CT angio shows no acute change. Patient NIH is 0 but does have a binocular diploplia which could potentially be TIA in nature, patient feels a little off balance but has good gait. He is appropriately anticoagulated with INR of 2.6. Discussed with patient, he elects return home rather than have observation although this was offered. Based on the current covid pandemic and patient's age he felt safer returning home and I do not disagree. I did speak with his primary care provider Dr. Pinto they do have space available tomorrow they will call him tomorrow to see him and help facilitate follow-up. Discharge Plan Departure Patient Disposition: Home Clinical Impression: Diplopia Discharge Date/Time: 02/23/20 21:16 Instructions: DI for Transient Ischemic Attack Activity Restrictions/Additional Instructions: Follow up with Dr. Pinto, call for follow up this week and further evaluation as needed. There is possibility that he may have had a TIA today and they likely would like to evaluate further. Continue with your scheduled appointment with ophthalmology and Dr. Dickerson. Continue your wafarin/coumadin as prescribed. Return to the ER for fevers greater 100.4 F, recurrent double vision, new difficulty or changes with gait, new weakness, numbness or tingling, difficulty with speech, new chest pain shortness of breath, severe headaches or other new or concerning symptoms. Prescriptions: No Action multivitamin [Multiple Vitamins] 1 EACH tablet 1 tab PO DAILY Qty: 0 RF: 0 atorvastatin [Lipitor] 10 MG tablet 10 mg PO QPM Qty: 0 RF: 0 cholecalciferol (vitamin D3) [Vitamin D3] 2,000 UNIT tablet 2,000 unit PO DAILY Qty: 0 RF: 0 warfarin 5 mg tablet See Rx Instructions .ROUTE .COMPLEX Qty: 90 RF: 3 finasteride 5 mg tablet 5 mg PO Q OTHER DAY Qty: 90 RF: 3 metoprolol succinate [Toprol XL] 25 mg tablet extended release 24 hr 25 mg PO QPM Qty: 90 RF: 3 tamsulosin 0.4 mg capsule 0.4 mg PO DAILY Qty: 90 RF: 3 clobetasol 0.05 % ointment 1 applic topical BID PRN (Reason: as directed) Qty: 30 RF: 3 metoprolol succinate 100 MG tablet extended release 24 hr 100 mg PO QAM RF: 0 Iron High Potency 27 mg tablet 27 mg PO DAILY RF: 0 Ocuvite 30unit 5mg 150mg 1 cap PO DAILY RF: 0 meclizine 25 mg tablet,chewable 25 mg PO TID PRN (Reason: motion sickness) Qty: 14 RF: 0 Referrals: Oleksandr Pinto DO [Primary Care Provider] -
[2020-02-23 19:21] VITALS: BP 187/91; PULSE 84; RESP 16; TEMP 36.6; O2SAT 95; BMI 23.8
--- NOTE | 2020-02-23 19:29 | DI.CT.S_ITS ---
PROCEDURE: CT STROKE INDICATIONS: double vision resolved, feels a little unsteady TECHNIQUE: Noncontrast 4.5 mm thick angled axial sections acquired from the foramen magnum to the vertex, with coronal reformats. For radiation dose reduction, the following was used: automated exposure control, adjustment of mA and/or kV according to patient size. COMPARISON: None. FINDINGS: Image quality: Excellent. CSF spaces: Basal cisterns are patent. No extra-axial fluid collections. Ventricles are normal in size and shape. Brain: No midline shift. No intracranial masses or hemorrhage. Duenas-white matter interface is normal. Skull and face: Calvarium and visualized facial bones are intact, without suspicious lesions. Sinuses: Visualized sinuses and mastoids are clear. IMPRESSION: Mild microvascular atherosclerotic change in the deep white matter of each hemisphere, no sign of hemorrhage or mass, or stroke. Note: This study was not requested in the circumstance of anticipated TPA administration. Dictated by: Ishan Osorio M.D. on 02/23/2020 at 20:31 Approved by: Ishan Osorio M.D. on 02/23/2020 at 20:32
--- NOTE | 2020-02-23 19:34 | DI.CT.S_ITS ---
PROCEDURE: CT ANGIO HEAD AND NECK INDICATIONS: diploplia, resolved, feels unsteady TECHNIQUE: Pre-contrast 4.5 mm thick sections acquired from the foramen magnum to the vertex. After the administration of intravenous contrast, 1 mm thick sections acquired from the aortic arch through the [place] of [place]. Post-contrast 4.5 mm thick sections then re-acquired from the foramen magnum to the vertex. 3-dimensional gjurosi-kpgrhobsv-oaewxkqpux (MIP) and/or volume rendering reformats were acquired of the central intracranial vasculature and neck separately. COMPARISON: None. FINDINGS: Image quality: Excellent. BRAIN: CSF spaces: Ventricles are normal in size and shape. Basal cisterns are patent. No extra-axial fluid collections. Brain: No midline shift. No intracranial bleeds or masses. Duenas-white matter interface appears intact. Skull and face: Calvarium and facial bones appear intact, without suspicious lesions. Orbits appear normal. Sinuses: Sinuses and mastoids are clear. HEAD CT ANGIOGRAPHY: Anterior circulation: Intracranial internal carotid arteries are normal in size and flow. The flow within the paired anterior cerebral arteries is normal and symmetric. The flow within the middle cerebral arteries is normal and symmetric. The anterior communicating artery is seen. No aneurysms are seen. Posterior circulation: Visualized portions of the vertebral arteries demonstrate normal caliber, and join to form a normal appearing basilar artery. Flow within the posterior cerebral arteries is normal and symmetric. No aneurysms are seen. NECK CT ANGIOGRAPHY: Carotid system: The great vessels demonstrate a conventional anatomy as they arise from the aortic arch. The origins of the common carotid arteries appear patent. The common carotid arteries demonstrate normal caliber and courses. The bifurcation regions are both widely patent. The internal carotid arteries demonstrate normal calibers and courses. Posterior circulation: The origins of the vertebral arteries both appear widely patent. The more superior extracranial portions of both vertebral arteries also demonstrate normal courses and calibers. They join to form a normal appearing basilar artery. Soft tissues: Visualized neck soft tissues demonstrate no suspicious abnormalities. Bones: No suspicious bony lesions. Visualized cervical spine appears normally aligned. IMPRESSION: No stenosis or aneurysm found. No evidence of cervical or skull base arterial dissection. No embolic disease is identified. Any quantitative measurements of stenosis were performed using NASCET criteria. Dictated by: Ishan Osorio M.D. on 02/23/2020 at 20:41 Approved by: Ishan Osorio M.D. on 02/23/2020 at 20:43
[2020-02-23] MEDS: SODIUM CHLORIDE 0.9% 1,000 ML 1000 ML IV (19:37)
[2020-02-23 19:42] LABS: Add Manual Diff / Slide Review NO; Basophils Absolute Auto 0 /uL (0-100); Basophils Percent Auto 0.6 % (0-2); Eosinophils Absolute Auto 200 /uL (0-450); Eosinophils Percent Auto 3.5 % (2-4); Hematocrit 43.1 % (41-53); Hemoglobin 14.1 g/dL (13.5-17.5); Lymphocytes Absolute Auto 1100 /uL (1100-4500); Lymphocytes Percent Auto 15.7 % (25-40); Mean Corpuscular HGB Conc 32.7 % (30-36); Mean Corpuscular Hemoglobin 29.7 PG (26-34); Mean Corpuscular Volume 90.8 fL (80-100); Monocytes Absolute Auto 700 /uL (0-900); Monocytes Percent Auto 10.4 % (3-14); Neutrophils Absolute Auto 4900 /uL (1500-7000); Neutrophils Percent Auto 69.8 % (50-75); Platelet Count 292 X10^3/uL (150-400); Red Blood Cell Count 4.75 X10^6/uL (4.5-5.9); Red Cell Distribution Width 14.5 % (11.6-14.8)
[2020-02-23 19:49] LABS: INR 2.6 (0.9-1.3)
[2020-02-23 19:52] LABS: Creatine Kinase 55 U/L (55-170); PTT Partial Thromboplastin Tim 47 SECONDS (26.4-36.2)
[2020-02-23 19:53] LABS: BUN Creatinine Ratio 18.9 (6-22); Blood Urea Nitrogen 23 mg/dL (9-20); Calcium 8.7 mg/dL (8.4-10.2); Carbon Dioxide 25 mmol/L (22-32); Chloride 106 mmol/L (98-107); Glucose 103 mg/dL (80-110); HEMOLYSIS 16 (0-50); Potassium 4.1 mmol/L (3.4-5.1); Sodium 139 mmol/L (137-145)
[2020-02-23 20:04] VITALS: BP 172/83; PULSE 82; RESP 18; O2SAT 99
[2020-02-23 20:05] LABS: Troponin I < 0.012 ng/mL (0.01-0.034)
[2020-02-23 20:25] LABS: Bacteria Urine Occasional (0-1); Culture Indicated Urine Specimen Cultured; RBC Urine 1-5/HPF (0-5/HPF); Squamous Epithelial Cell Urine 0-1 /HPF (0-5/HPF); WBC Urine 1-5/HPF (0-5/HPF)
[2020-02-23 21:15] VITALS: BP 159/83; PULSE 79; RESP 20; O2SAT 97
== END 2020-02-23 21:16 | disposition home or self-care (01) ==
PROVIDERS: Emergency Provider Emergency Medicine; PCP Family Medicine
DX: H53.2 Diplopia (principal); I48.91 Unspecified atrial fibrillation; Z79.01 Long term (current) use of anticoagulants
CPT/HCPCS: 36415; 70450; 70496; 70498; 80048; 81003; 81015; 82550; 82962; 84484; 85025; 85610; 85730; 87086; 93005; 96360; 96361; 99285; Q9967

== ENCOUNTER 2020-04-11 08:28 | Emergency (ER) | payer MEDICARE, OTHER, SELFPAY ==
--- NOTE | 2020-04-11 08:41 | ED_ITS ---
HPI - Dizziness General Chief Complaint: Dizziness Stated Complaint: lightheaded/ shaky/ dizziness Time Seen by Provider: 04/11/20 08:32 Source: patient and family Mode of arrival: Ambulatory Limitations: no limitations History of Present Illness HPI Narrative: 79-year-old male former smoker with history of hypertension, hyperlipidemia, AFib on Coumadin, benign paroxysmal positional vertigo presents with family for the chief complaint of some dizziness and lightheadedness that started this morning while on the toilet. He went to bed in his normal state of health and woke up in his normal state of health. He was on the toilet urinating and attempting to have a bowel movement, though not straining terribly hard when he felt as if he may pass out. He denies any focal neurologic findings. He denies any chest pain or shortness of breath. He has had similar episodes in the past without any significant findings. MD complaint: lightheadedness Onset (ago): hour(s) Timing: sudden onset and now resolved Description: lightheadedness History of similar episodes: Yes History of trauma: No Severity: mild Relieving factors: remaining still Exacerbating factors: position Associated symptoms: denies other symptoms Related Data Home Medications Medication Instructions Recorded Confirmed multivitamin [Multiple Vitamins] 1 tab PO DAILY #0 03/06/13 03/20/20 atorvastatin [Lipitor] 10 mg PO QPM #0 07/05/16 03/20/20 cholecalciferol (vitamin D3) 2,000 unit PO DAILY #0 tab 08/03/16 03/20/20 [Vitamin D3] Iron High Potency 27 mg PO DAILY 04/09/19 03/20/20 Ocuvite 30unit 5mg 150mg 1 cap PO DAILY 04/09/19 03/20/20 metoprolol succinate 100 mg PO QAM 04/09/19 03/20/20 Previous Rx's Medication Instructions Recorded finasteride 5 mg tablet 5 mg PO Q OTHER DAY #90 tab 11/08/19 metoprolol succinate 25 mg 25 mg PO QPM #90 tab 11/08/19 tablet,extended release 24 hr tamsulosin 0.4 mg capsule 0.4 mg PO DAILY #90 cap 11/08/19 clobetasol 0.05 % topical ointment 1 applic TOPICAL BID PRN #30 gram 12/10/19 warfarin 5 mg tablet See Rx Instructions .ROUTE 12/25/19 .COMPLEX #90 tab meclizine 25 mg PO BID PRN #10 tab 04/11/20 Allergies Allergy/AdvReac Type Severity Reaction Status Date / Time No Known Drug Allergies Allergy Verified 03/20/20 08:50 Review of Systems Constitutional Constitutional: Denies chills, Denies fatigue, Denies fever(s), Denies frequent falls, Denies lethargy and Denies weakness Eyes Eyes: Denies change in vision, Denies eye discharge, Denies irritation and Denies loss of vision ENT Ears, Nose, Mouth, and Throat: Denies change in voice, Denies dizziness, Denies neck pain, Denies sore throat and Denies throat swelling Cardiovascular Cardiovascular: Denies chest pain, Denies irregular heart rhythm, Reports lightheadedness, Denies palpitations, Denies dyspnea, Denies dyspnea on exertion and Denies orthopnea Respiratory Respiratory: Denies cough, Denies dyspnea, Denies dyspnea on exertion and Denies wheezing Gastrointestinal Gastrointestinal: Denies abdominal pain, Denies change in bowel habits, Denies diarrhea, Denies nausea and Denies vomiting Genitourinary Genitourinary: Denies hematuria, Denies flank pain, Denies urinary incontinence and Denies urinary urgency Musculoskeletal Musculoskeletal: Denies back pain, Denies muscle weakness, Denies neck pain, Denies numbness and Denies tingling Integumentary/Breasts Skin/Breast: Denies pruritus, Denies erythema, Denies rash and Denies wounds Neurologic Neurologic: Denies behavioral changes, Denies confusion, Denies dizziness, Denies frequent falls, Denies loss of vision, Denies numbness, Denies tingling and Denies weakness Psychiatric Psychiatric: Denies anxiety, Denies behavioral changes, Denies confusion, Denies depression, Denies homicidal ideation and Denies suicidal ideation Endocrine Endocrine: Denies fatigue, Denies flushing and Denies palpitations Hematologic/Lymphatic Hematologic/Lymphatic: Denies easy bruising Allergic/Immunologic Allergic/Immunologic: Denies urticaria, Denies throat swelling and Denies wheezing Patient History Medical History (Updated 04/11/20 @ 12:13 by Yunior Ji DO) Acute dehydration (Inactive) Atrial fibrillation (Acute) Atrial fibrillation with rapid ventricular response (Acute) Atypical chest pain (Acute) 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) BPPV (benign paroxysmal positional vertigo) (Acute) 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) Cervical somatic dysfunction (Acute) Chest pressure (Acute) Chronic atrial fibrillation (01/02/18) Chronic bilateral low back pain without sciatica (Acute) Cranial somatic dysfunction (Acute) Diplopia (Acute) Essential hypertension (02/16/16) Foot stiffness (Acute) Incomplete emptying of bladder (02/16/16) Orthostatic lightheadedness (Inactive) Pelvic somatic dysfunction (Acute) Pleural effusion (Acute) Segmental and somatic dysfunction of lumbar region (Acute) Segmental and somatic dysfunction of rib cage (Acute) Segmental and somatic dysfunction of sacral region (Acute) Segmental and somatic dysfunction of thoracic region (Acute) Somatic dysfunction of both lower extremities (Acute) Stiff neck (Acute) Surgical History Status post cholecystectomy Social History Smoking Status: Former smoker Smoking Status: Former smoker alcohol intake frequency: 0-2 drinks per day Substance Use Type: does not use Exam Narrative Exam Narrative: GENERAL: [79] year old patient appears stated age. Well- nourished, well-developed patient, in mild distress. HEAD: Atraumatic. Normocephalic. EYES: Pupils equal round and reactive. Extraocular motions intact. No scleral icterus. No injection or drainage. ENT: Nose without bleeding, purulent drainage. Throat without erythema, tonsillar hypertrophy or exudate. Airway patent. NECK: Trachea midline. Non tender CARDIOVASCULAR: Irregular rate and rhythm without murmurs, gallops, or rubs. RESPIRATORY: Clear to auscultation. Breath sounds equal bilaterally. No wheezes, rales, or rhonchi. GASTROINTESTINAL: Abdomen soft, non-tender, nondistended. EXTREMITIES: No edema or joint tenderness. BACK: Nontender without deformity or crepitance. No flank tenderness. NEURO: AOx3. SKIN: No rash or erythema of visible areas NIH Stroke Scale 1a. LOC: Patient is alert and keenly responsive (0) 1b. LOC Questions: Patient answers both LOC questions accurately (0) 1c. LOC Commands: Patient performs both tasks correctly (0) 2. Best Gaze: Normal (0) 3. Visual: No visual loss (0) 4. Facial palsy: Normal symmetrical movements (0) 5. Motor arm: No drift (0) 6. Motor leg: No drift (0) 7. Limb ataxia: Absent (0) 8. Sensory: Normal (0) 9. Best language: No aphasia; normal (0) 10. Dysarthria: Normal (0) 11. Extinction and inattention: No abnormality (0) NIHSS: 0 Initial Vital Signs Initial Vital Signs: Vital Signs Temperature 95 F L 04/11/20 08:43 Pulse Rate 77 04/11/20 08:43 Respiratory Rate 13 04/11/20 08:43 Blood Pressure 122/64 04/11/20 08:43 Pulse Oximetry 96 04/11/20 08:43 Course Orders Ordered: ED Orders 04/11/20 08:42 CT head/brain wo con Stat EKG-12 Lead Stat 04/11/20 08:45 Basic Metabolic Panel Stat Complete Blood Count AUTO DIFF Stat Prothrombin Time INR Stat Troponin I Stat 04/11/20 10:58 CT angio head and neck Stat Discontinued Medications Sodium Chloride (Normal Saline 0.9%) 1,000 mls @ 150 mls/hr IV CONT REN Last Infusion: 04/11/20 10:49 Dose: 150 mls/hr Documented by: Admin: 04/11/20 09:13 Dose: 150 mls/hr Documented by: PAULA Sodium Chloride (Normal Saline 0.9%) 500 mls @ 1,000 mls/hr IV BOLUS ONE Stop: 04/11/20 11:27 Last Infusion: 04/11/20 11:28 Dose: 0 mls/hr Documented by: Admin: 04/11/20 11:03 Dose: 1,000 mls/hr Documented by: PAULA Meclizine HCl (Antivert) 25 mg PO NOW ONE Stop: 04/11/20 08:42 Last Admin: 04/11/20 09:13 Dose: 25 mg Documented by: PAULA Vital Signs Vital signs: Vital Signs - 8 hr 04/11/20 08:43 04/11/20 10:46 04/11/20 12:38 Temperature 95 F L Pulse Rate 77 83 Pulse Rate [Orthostatic Lying] 89 Pulse Rate [Orthostatic Sitting] 85 Pulse Rate [Orthostatic Standing] 87 Respiratory Rate 13 Blood Pressure 122/64 157/84 H Blood Pressure [Orthostatic Lying] 158/88 H Blood Pressure [Orthostatic Sitting] 161/91 H Blood Pressure [Orthostatic Standing] 150/78 H Pulse Oximetry 96 96 MDM - Dizziness Lab Data Result diagrams: 04/11/20 08:45 04/11/20 08:45 Labs: Lab Results 04/11/20 04/11/20 04/11/20 Range/Units 08:45 08:45 08:45 WBC 7.4 (4.5-11.0) X10^3/uL RBC 4.73 (4.5-5.9) X10^6/uL Hgb 14.5 (13.5-17.5) g/dL Hct 43.0 (41-53) % MCV 91.0 (80-100) fL MCH 30.6 (26-34) PG MCHC 33.7 (30-36) % RDW 14.6 (11.6-14.8) % Plt Count 291 (150-400) X10^3/uL Neut % (Auto) 70.0 (50-75) % Lymph % (Auto) 16.3 L (25-40) % [place] % (Auto) 9.5 (3-14) % Eos % (Auto) 3.5 (2-4) % Baso % (Auto) 0.7 (0-2) % Neut # (Auto) 5200 (1701-6026) /uL Lymph # (Auto) 1200 (1631-0137) /uL [place] # (Auto) 700 (0-900) /uL Eos # (Auto) 300 (0-450) /uL Baso # (Auto) 100 (0-100) /uL PT 27.6 H (10.1-12.7) SECONDS INR 2.4 H (0.9-1.3) Sodium 139 (137-145) mmol/L Potassium 3.7 (3.4-5.1) mmol/L Chloride 103 (98-107) mmol/L Carbon Dioxide 28 (22-32) mmol/L BUN 18 (9-20) mg/dL Creatinine 1.15 (0.66-1.25) mg/dL Estimated GFR > 60.0 (>60) mL/min BUN/Creatinine Ratio 15.7 (6-22) Glucose 82 (80-110) mg/dL Calcium 8.9 (8.4-10.2) mg/dL Troponin I < 0.012 (0.01-0.034) ng/mL Urine Dip Bedside Urine Glucose Negative Bedside Urine Bilirubin - Negative Bedside Urine Ketone - Negative Urine Specific Maynard 1.015 Bedside Urine Occult Blood - Negative Bedside Urine pH 6.5 Bedside Urine Protein - Negative Bedside Urine Urobilinogen - Negative Bedside Urine Nitrite - Negative Bedside Urine Leukocytes +/- [address] scan - head: Radiologist's Impression: Nestor Mercedes 79 M [address] [address] [address] Scan Report Signed Patient: Nestor Mercedes CMR#: [id number] : [id number]:[id number] Age/Sex: 79 / MDate of Service: 04/11/20 Loc: ED Accession Number: [id number] Procedure: CT head/brain wo con Ordering Provider: Yunior Ji D.O. PROCEDURE: CT HEAD/BRAIN WO CON INDICATIONS: dizzy, unsteady TECHNIQUE: Noncontrast 4.5 mm thick angled axial sections acquired from the foramen magnum to the vertex, with coronal and sagittal reformats. For radiation dose reduction, the following was used: automated exposure control, adjustment of mA and/or kV according to patient size. COMPARISON: None. FINDINGS: Image quality: Excellent. CSF spaces: Basal cisterns are patent. No extra-axial fluid collections. The ventricles are symmetric in size and shape. Brain: No intracranial bleeds or masses. There is cerebral volume loss for age, with resultant ventricular and sulcal prominence. There are mild periventricular and deep white matter chronic small vessel ischemic changes. There is intracranial internal carotid artery atherosclerosis. Skull and face: Calvarium and visualized facial bones appear intact, without suspicious lesions. Sinuses: Anterior left ethmoid opacification and sphenoid sinus mucosal thickening and subtotal opacification are noted, not significantly changed from the previous study. IMPRESSION: 1. Sinusitis, as before 2. Age-related volume loss and mild small vessel ischemic change. 3. No evidence of stroke, hemorrhage, or mass. Dictated by: Benjamín Ding M.D. on 04/11/2020 at 8:10 Approved by: Benjamín Ding M.D. on 04/11/2020 at 8:12 CTA Head/Neck: Radiologist's Impression: Chart Viewer Diagnostics DATE TYPE STATUS AUTHOR Hx 04/11/20 10:58 Benjamín Ding 04/11/20 08:42 Benjamín Ding 02/23/20 19:34 DevonIshan 02/23/20 19:29 Devon,Ishan 10/16/19 01:49 Shahida Elliott 04/15/19 00:00 Carlos Grant 04/09/19 14:56 Shahida Elliott 03/05/18 09:26 Nestor Mercedes 79, M0 1940 [facility], Main ED 80.739kg Dizziness Search Chart No Data to Display NF - Not included in interaction checking ONSET 02/16/16 02/16/16 02/16/16 02/16/16 01/02/18 Today 12:38 Nestor Mercedes 79 M 1940 [place] [address] CT Scan Report Signed Patient: Nestor Mercedes CMR#: [id number] : [id number]:[id number] Age/Sex: 79 / MDate of Service: 04/11/20 Loc: ED Accession Number: [id number] Procedure: CT angio head and neck Ordering Provider: Yunior Ji D.O. PROCEDURE: CT ANGIO HEAD AND NECK INDICATIONS: dizziness, ataxia TECHNIQUE: Pre-contrast 4.5 mm thick sections acquired from the foramen magnum to the vertex. After the administration of intravenous contrast, 1 mm thick sections acquired from the aortic arch through the [place] of [place]. Post-contrast 4.5 mm thick sections then re- acquired from the foramen magnum to the vertex. 3-dimensional vymshey-sluupxstv-yybicbjrmw (MIP) and/or volume rendering reformats were acquired of the central intracranial vasculature and neck separately. COMPARISON: CT exam of the head and neck dated 02/23/20, CT head dated 04/11/20. FINDINGS: Image quality: Excellent. BRAIN: CSF spaces: Ventricles are normal in size and shape. Basal cisterns are patent. No extra-axial fluid collections. Brain: No midline shift. No intracranial bleeds or masses. Duenas-white matter interface appears intact. Age-related volume loss and mild small vessel ischemic change. Skull and face: Calvarium and facial bones appear intact, without suspicious lesions. Orbits appear normal. Sinuses: Again noted is anterior left ethmoid opacification and sphenoid sinus mucosal thickening and subtotal opacification. HEAD CT ANGIOGRAPHY: Anterior circulation: Intracranial internal carotid arteries are normal in size and flow. The flow within the paired anterior cerebral arteries is normal and symmetric. The flow within the middle cerebral arteries is normal and symmetric. The anterior communicating artery is seen. No aneurysms are seen. Posterior circulation: Visualized portions of the vertebral arteries demonstrate normal caliber, and join to form a normal appearing basilar artery. Flow within the posterior cerebral arteries is normal and symmetric. No aneurysms are seen. NECK CT ANGIOGRAPHY: Carotid system: The great vessels demonstrate a conventional anatomy as they arise from the aortic arch. The origins of the common carotid arteries appear patent. The common carotid arteries demonstrate normal caliber and courses. The bifurcation regions are both widely patent. Mild calcifications. The internal carotid arteries demonstrate normal calibers and courses. Posterior circulation: The origins of the vertebral arteries both appear widely patent. The more superior extracranial portions of both vertebral arteries also demonstrate normal courses and calibers. They join to form a normal appearing basilar artery. Soft tissues: Visualized neck soft tissues demonstrate no suspicious abnormalities. Bones: No suspicious bony lesions. Visualized cervical spine appears normally aligned. IMPRESSION: 1. Age related volume loss and mild small vessel ischemic change. 2. No evidence acute stroke, hemorrhage, or mass. 3. Unremarkable CTA head. No stenosis, occlusion, aneurysm, or focal filling defect. 4. No evidence of dissection in the neck. Otherwise unremarkable CTA neck with no significant internal carotid artery stenotic disease. Any quantitative measurements of stenosis were performed using NASCET criteria. Comment: Findings were discussed with Dr. Ji at the time of study dictation on 04.11.20 at 12:08 hours PDT. Dictated by: Benjamín Ding M.D. on 04/11/2020 at 11:02 Approved by: Benjamín Ding M.D. on 04/11/2020 at 11:09 Discharge Plan Departure Patient Disposition: Home Clinical Impression: Dizziness Discharge Date/Time: 04/11/20 12:38 Instructions: DI for Dizziness-Nonvertigo Activity Restrictions/Additional Instructions: *You have been diagnosed with [dizziness] *What to do: *Take medications as directed *Follow up with your primary care provider in 2-3 days, call for an appointment. Let them know you were seen in the Emergency Department and that we ask that you be seen in follow up *Return to ER if you should have any new, worsening or concerning symptoms Prescriptions: New meclizine 25 mg tablet 25 mg PO BID PRN (Reason: dizziness) Qty: 10 RF: 0 No Action multivitamin [Multiple Vitamins] 1 EACH tablet 1 tab PO DAILY Qty: 0 RF: 0 atorvastatin [Lipitor] 10 MG tablet 10 mg PO QPM Qty: 0 RF: 0 cholecalciferol (vitamin D3) [Vitamin D3] 2,000 UNIT tablet 2,000 unit PO DAILY Qty: 0 RF: 0 warfarin 5 mg tablet See Rx Instructions .ROUTE .COMPLEX Qty: 90 RF: 3 finasteride 5 mg tablet 5 mg PO Q OTHER DAY Qty: 90 RF: 3 metoprolol succinate [Toprol XL] 25 mg tablet extended release 24 hr 25 mg PO QPM Qty: 90 RF: 3 tamsulosin 0.4 mg capsule 0.4 mg PO DAILY Qty: 90 RF: 3 clobetasol 0.05 % ointment 1 applic topical BID PRN (Reason: as directed) Qty: 30 RF: 3 metoprolol succinate 100 MG tablet extended release 24 hr 100 mg PO QAM RF: 0 Iron High Potency 27 mg tablet 27 mg PO DAILY RF: 0 Ocuvite 30unit 5mg 150mg 1 cap PO DAILY RF: 0 Referrals: Oleksandr Pinto DO [Primary Care Provider] -
[2020-04-11 08:43] VITALS: BP 122/64; PULSE 77; RESP 13; TEMP 35; O2SAT 96
[2020-04-11 08:52] LABS: Add Manual Diff / Slide Review NO; Basophils Absolute Auto 100 /uL (0-100); Basophils Percent Auto 0.7 % (0-2); Eosinophils Absolute Auto 300 /uL (0-450); Eosinophils Percent Auto 3.5 % (2-4); Hemoglobin 14.5 g/dL (13.5-17.5); Lymphocytes Absolute Auto 1200 /uL (1100-4500); Lymphocytes Percent Auto 16.3 % (25-40); Mean Corpuscular HGB Conc 33.7 % (30-36); Mean Corpuscular Hemoglobin 30.6 PG (26-34); Monocytes Absolute Auto 700 /uL (0-900); Monocytes Percent Auto 9.5 % (3-14); Neutrophils Absolute Auto 5200 /uL (1500-7000); Platelet Count 291 X10^3/uL (150-400); Red Blood Cell Count 4.73 X10^6/uL (4.5-5.9); Red Cell Distribution Width 14.6 % (11.6-14.8); White Blood Cell Count 7.4 X10^3/uL (4.5-11.0)
[2020-04-11 08:59] LABS: INR 2.4 (0.9-1.3); Prothrombin Time 27.6 SECONDS (10.1-12.7)
[2020-04-11 09:03] LABS: BUN Creatinine Ratio 15.7 (6-22); Blood Urea Nitrogen 18 mg/dL (9-20); Calcium 8.9 mg/dL (8.4-10.2); Carbon Dioxide 28 mmol/L (22-32); Chloride 103 mmol/L (98-107); Estimated Glomerular Filt Rate > 60.0 mL/min (>60); Glucose 82 mg/dL (80-110); HEMOLYSIS < 15 (0-50); Potassium 3.7 mmol/L (3.4-5.1); Sodium 139 mmol/L (137-145)
[2020-04-11] MEDS: SODIUM CHLORIDE 0.9% 1,000 ML 150 ML IV (09:13)
[2020-04-11] MEDS: MECLIZINE HCL 12.5 MG TABLET 25 MG PO (09:13)
[2020-04-11 09:15] LABS: Troponin I < 0.012 ng/mL (0.01-0.034)
--- NOTE | 2020-04-11 09:34 | PC.NURSE ---
Pt using bathroom this morning when he became dizzy
[2020-04-11 10:46] VITALS: BP 150/78; BP 158/88; BP 161/91; PULSE 85; PULSE 87; PULSE 89
--- NOTE | 2020-04-11 10:48 | PC.NURSE ---
Pt abmulated with steady gait but felt unsteady.
--- NOTE | 2020-04-11 10:58 | DI.CT.S_ITS ---
PROCEDURE: CT ANGIO HEAD AND NECK INDICATIONS: dizziness, ataxia TECHNIQUE: Pre-contrast 4.5 mm thick sections acquired from the foramen magnum to the vertex. After the administration of intravenous contrast, 1 mm thick sections acquired from the aortic arch through the [place] of [place]. Post-contrast 4.5 mm thick sections then re-acquired from the foramen magnum to the vertex. 3-dimensional itjubqo-cmaljfyzm-ywniypaanh (MIP) and/or volume rendering reformats were acquired of the central intracranial vasculature and neck separately. COMPARISON: CT exam of the head and neck dated 02/23/20, CT head dated 04/11/20. FINDINGS: Image quality: Excellent. BRAIN: CSF spaces: Ventricles are normal in size and shape. Basal cisterns are patent. No extra-axial fluid collections. Brain: No midline shift. No intracranial bleeds or masses. Duenas-white matter interface appears intact. Age-related volume loss and mild small vessel ischemic change. Skull and face: Calvarium and facial bones appear intact, without suspicious lesions. Orbits appear normal. Sinuses: Again noted is anterior left ethmoid opacification and sphenoid sinus mucosal thickening and subtotal opacification. HEAD CT ANGIOGRAPHY: Anterior circulation: Intracranial internal carotid arteries are normal in size and flow. The flow within the paired anterior cerebral arteries is normal and symmetric. The flow within the middle cerebral arteries is normal and symmetric. The anterior communicating artery is seen. No aneurysms are seen. Posterior circulation: Visualized portions of the vertebral arteries demonstrate normal caliber, and join to form a normal appearing basilar artery. Flow within the posterior cerebral arteries is normal and symmetric. No aneurysms are seen. NECK CT ANGIOGRAPHY: Carotid system: The great vessels demonstrate a conventional anatomy as they arise from the aortic arch. The origins of the common carotid arteries appear patent. The common carotid arteries demonstrate normal caliber and courses. The bifurcation regions are both widely patent. Mild calcifications. The internal carotid arteries demonstrate normal calibers and courses. Posterior circulation: The origins of the vertebral arteries both appear widely patent. The more superior extracranial portions of both vertebral arteries also demonstrate normal courses and calibers. They join to form a normal appearing basilar artery. Soft tissues: Visualized neck soft tissues demonstrate no suspicious abnormalities. Bones: No suspicious bony lesions. Visualized cervical spine appears normally aligned. IMPRESSION: 1. Age related volume loss and mild small vessel ischemic change. 2. No evidence acute stroke, hemorrhage, or mass. 3. Unremarkable CTA head. No stenosis, occlusion, aneurysm, or focal filling defect. 4. No evidence of dissection in the neck. Otherwise unremarkable CTA neck with no significant internal carotid artery stenotic disease. Any quantitative measurements of stenosis were performed using NASCET criteria. Comment: Findings were discussed with Dr. Ji at the time of study dictation on 04.11.20 at 12:08 hours PDT. Dictated by: Benjamín Ding M.D. on 04/11/2020 at 11:02 Approved by: Benjamín Ding M.D. on 04/11/2020 at 11:09
[2020-04-11] MEDS: SODIUM CHLORIDE 0.9% 500 ML 1000 ML IV (11:03)
[2020-04-11 12:38] VITALS: BP 157/84; PULSE 83; O2SAT 96
== END 2020-04-11 12:38 | disposition home or self-care (01) ==
PROVIDERS: Emergency Provider Emergency Medicine; PCP Family Medicine
DX: R42 Dizziness and giddiness (principal); I10 Essential (primary) hypertension; E78.5 Hyperlipidemia, unspecified; I48.91 Unspecified atrial fibrillation; Z79.01 Long term (current) use of anticoagulants
CPT/HCPCS: 36415; 70450; 70496; 70498; 80048; 81003; 84484; 85025; 85610; 93005; 93010; 96360; 96361; 99284; Q9967

== ENCOUNTER → 2020-05-06 09:15 | Outpatient (CLI) | payer MEDICARE, OTHER, SELFPAY ==
[2020-05-06 10:09] LABS: Add Manual Diff / Slide Review NO; Basophils Absolute Auto 0 /uL (0-100); Basophils Percent Auto 0.6 % (0-2); Eosinophils Absolute Auto 200 /uL (0-450); Eosinophils Percent Auto 3.4 % (2-4); Hematocrit 42.9 % (41-53); Hemoglobin 14.2 g/dL (13.5-17.5); Lymphocytes Absolute Auto 1100 /uL (1100-4500); Mean Corpuscular HGB Conc 33.2 % (30-36); Mean Corpuscular Hemoglobin 30.4 PG (26-34); Mean Corpuscular Volume 91.7 fL (80-100); Monocytes Absolute Auto 600 /uL (0-900); Monocytes Percent Auto 9.7 % (3-14); Neutrophils Absolute Auto 4600 /uL (1500-7000); Neutrophils Percent Auto 69.3 % (50-75); Platelet Count 295 X10^3/uL (150-400); Red Blood Cell Count 4.68 X10^6/uL (4.5-5.9); Red Cell Distribution Width 14.5 % (11.6-14.8); White Blood Cell Count 6.6 X10^3/uL (4.5-11.0)
[2020-05-06 10:38] LABS: Alanine Aminotransferase 23 IU/L (<50); Albumin 3.8 g/dL (3.5-5.0); Albumin Globulin Ratio 1.3 (1.0-2.8); Alkaline Phosphatase 79 U/L (38-126); Aspartate Aminotransferase 29 IU/L (17-59); BUN Creatinine Ratio 15.9 (6-22); Bilirubin Total 1.5 mg/dL (0.2-1.3); Blood Urea Nitrogen 18 mg/dL (9-20); Calcium 8.8 mg/dL (8.4-10.2); Carbon Dioxide 31 mmol/L (22-32); Chloride 104 mmol/L (98-107); Cholesterol 127 mg/dL (140-199); Estimated Glomerular Filt Rate > 60.0 mL/min (>60); Glucose 91 mg/dL (80-110); HDL Cholesterol 35 mg/dL (40-60); HEMOLYSIS < 15 (0-50); LDL Cholesterol Calculated 69 mg/dL (<100); Potassium 4.2 mmol/L (3.4-5.1); Sodium 138 mmol/L (137-145); Total Protein 6.8 g/dL (6.3-8.2); Triglycerides 115 mg/dL (35-150)
[2020-05-06 11:06] LABS: Prostate Specific Antigen Scrn 1.69 ng/mL (0.1-4.0)
[2020-05-06 11:36] LABS: Vitamin D 25 Hydroxy (D3) 21.1 ng/mL (30.0-100.0)
== END ==
PROVIDERS: PCP Family Medicine; Referring Provider Family Medicine; Visit Provider Family Medicine
DX: E55.9 Vitamin D deficiency, unspecified (principal); E78.5 Hyperlipidemia, unspecified; H53.2 Diplopia; I48.91 Unspecified atrial fibrillation; L12.0 Bullous pemphigoid; Z12.5 Encounter for screening for malignant neoplasm of prostate
CPT/HCPCS: 36415; 80053; 80061; 82306; 85025; G0103

== ENCOUNTER 2020-06-13 16:09 | Emergency (ER) | payer MEDICARE, OTHER, SELFPAY ==
[2020-06-13] VITALS (15 sets, daily range): BP systolic 134–164; BP diastolic 78–97; PULSE 78–101; RESP 14–37; TEMP 36.4; O2SAT 95–99; BMI 23.7
--- NOTE | 2020-06-13 16:24 | DI.RAD.S_ITS ---
PROCEDURE: XR CHEST 1V INDICATIONS: chest pain TECHNIQUE: One view of the chest was acquired. COMPARISON: [facility], CHEST 1 VIEW, 07/05/2016, 8:26. [facility], CHEST 2 VIEW, 08/17/2016, 8:48. [facility], CHEST 2 VIEW, 03/05/2018, 9:42. FINDINGS: Surgical changes and devices: None. Lungs and pleura: Low lung volumes are noted. This causes a crowded appearance to the lung markings and limits evaluation. Blunting of both costophrenic angles is seen. Interstitial prominence is seen. No pneumothorax is seen. Mediastinum: The cardiac contours are mildly enlarged. The aorta demonstrates calcification and tortuosity. Bones and chest wall: No suspicious bony lesions. Age-appropriate bony degenerative changes are seen. Overlying soft tissues appear unremarkable. IMPRESSION: Mild cardiomegaly, pleural effusions, and interstitial prominence. Please correlate with patient presentation, physical examination findings, and laboratory values for congestive heart failure. Dictated by: Rafal Jackson M.D. on 06/13/2020 at 16:10 Approved by: Rafal Jackson M.D. on 06/13/2020 at 16:11
[2020-06-13 16:48] LABS: Add Manual Diff / Slide Review NO; Basophils Absolute Auto 100 /uL (0-100); Basophils Percent Auto 1.8 % (0-2); Eosinophils Absolute Auto 200 /uL (0-450); Eosinophils Percent Auto 3.5 % (2-4); Hematocrit 42.3 % (41-53); Hemoglobin 14.3 g/dL (13.5-17.5); Lymphocytes Absolute Auto 1100 /uL (1100-4500); Lymphocytes Percent Auto 18.1 % (25-40); Mean Corpuscular HGB Conc 33.8 % (30-36); Mean Corpuscular Hemoglobin 30.3 PG (26-34); Mean Corpuscular Volume 89.6 fL (80-100); Monocytes Absolute Auto 700 /uL (0-900); Monocytes Percent Auto 12.2 % (3-14); Neutrophils Absolute Auto 3800 /uL (1500-7000); Neutrophils Percent Auto 64.4 % (50-75); Platelet Count 269 X10^3/uL (150-400); Red Blood Cell Count 4.72 X10^6/uL (4.5-5.9); Red Cell Distribution Width 14.1 % (11.6-14.8); White Blood Cell Count 5.9 X10^3/uL (4.5-11.0)
[2020-06-13 16:50] LABS: INR 2.1 (0.9-1.3); Prothrombin Time 24.3 SECONDS (10.1-12.7)
[2020-06-13 16:52] LABS: PTT Partial Thromboplastin Tim 43 SECONDS (26.4-36.2)
[2020-06-13 16:54] LABS: Alanine Aminotransferase 23 IU/L (<50); Albumin 3.9 g/dL (3.5-5.0); Albumin Globulin Ratio 1.3 (1.0-2.8); Alkaline Phosphatase 99 U/L (38-126); Aspartate Aminotransferase 31 IU/L (17-59); BUN Creatinine Ratio 16.8 (6-22); Bilirubin Total 1.6 mg/dL (0.2-1.3); Blood Urea Nitrogen 17 mg/dL (9-20); Calcium 8.8 mg/dL (8.4-10.2); Carbon Dioxide 27 mmol/L (22-32); Chloride 104 mmol/L (98-107); Creatine Kinase 55 U/L (55-170); Estimated Glomerular Filt Rate > 60.0 mL/min (>60); Globulin 2.9 g/dL (1.7-4.1); Glucose 113 mg/dL (80-110); HEMOLYSIS 22 (0-50); Lipase 288 U/L (23-300); Potassium 3.8 mmol/L (3.4-5.1); Sodium 136 mmol/L (137-145); Total Protein 6.8 g/dL (6.3-8.2)
[2020-06-13 17:05] LABS: Troponin I < 0.012 ng/mL (0.01-0.034)
[2020-06-13 18:04] LABS: Bacteria Urine None Seen; RBC Urine None Seen (0-5/HPF); WBC Urine None Seen (0-5/HPF)
--- NOTE | 2020-06-13 18:07 | DI.CT.S_ITS ---
PROCEDURE: CT HEAD/BRAIN WO CON INDICATIONS: dizzy TECHNIQUE: Noncontrast 4.5 mm thick angled axial sections acquired from the foramen magnum to the vertex, with coronal and sagittal reformats. For radiation dose reduction, the following was used: automated exposure control, adjustment of mA and/or kV according to patient size. COMPARISON: [facility], CT, CT HEAD/BRAIN WO CON, 04/11/2020, 8:40. FINDINGS: Image quality: Excellent. CSF spaces: Basal cisterns are patent. No extra-axial fluid collections. The ventricles are stable.. Brain: No intracranial bleeds or masses. There is cerebral volume loss for age, with resultant ventricular and sulcal prominence. There are periventricular and deep white matter chronic small vessel ischemic changes. There is intracranial internal carotid artery atherosclerosis. Skull and face: Calvarium and visualized facial bones appear intact, without suspicious lesions. Sinuses: Visualized sinuses and mastoids are clear. IMPRESSION: No acute intracranial process. Dictated by: Efrem Forrester M.D. on 06/13/2020 at 18:26 Approved by: Efrem Forrester M.D. on 06/13/2020 at 18:28
[2020-06-13 18:25] LABS: Appearance Urine UA CLEAR; Bilirubin Urine UA NEGATIVE (NEGATIVE); Color Urine UA YELLOW; Glucose Urine UA NEGATIVE (Negative); Ketones Urine UA NEGATIVE (NEGATIVE); Leukocyte Esterase Urine UA TRACE (NEGATIVE); Nitrite Urine UA NEGATIVE (Negative); Occult Blood Urine UA NEGATIVE (Negative); Protein Urine UA NEGATIVE (Negative); Urobilinogen Urine UA 0.2 E.U./dL (0.2)
[2020-06-13 18:26] LABS: Culture Indicated Urine Cult Not Indicated; Urine Comments Microscopic Normal
--- NOTE | 2020-06-13 18:43 | DI.CT.S_ITS ---
PROCEDURE: CT ANGIO HEAD AND NECK INDICATIONS: dizzy, diplopia TECHNIQUE: Pre-contrast 4.5 mm thick sections acquired from the foramen magnum to the vertex. After the administration of intravenous contrast, 1 mm thick sections acquired from the aortic arch through the [place]. Post-contrast 4.5 mm thick sections then re-acquired from the foramen magnum to the vertex. 3-dimensional [id number] (MIP) and/or volume rendering reformats were acquired of the central intracranial vasculature and neck separately. COMPARISON: [facility], CT, CT ANGIO HEAD AND NECK, 04/11/2020, 11:23. FINDINGS: Image quality: Excellent. BRAIN: CSF spaces: Ventricles are normal in size and shape. Basal cisterns are patent. No extra-axial fluid collections. Brain: No midline shift. No intracranial bleeds or masses. Duenas-white matter interface appears intact. Skull and face: Calvarium and facial bones appear intact, without suspicious lesions. Orbits appear normal. Sphenoid sinus disease with near complete opacification. HEAD CT ANGIOGRAPHY: Anterior circulation: Intracranial internal carotid arteries are normal in size and flow. The flow within the paired anterior cerebral arteries is normal and symmetric. The flow within the middle cerebral arteries is normal and symmetric. The anterior communicating artery is seen. No aneurysms are seen. Posterior circulation: Visualized portions of the vertebral arteries demonstrate normal caliber, and join to form a normal appearing basilar artery. Flow within the posterior cerebral arteries is normal and symmetric. No aneurysms are seen. NECK CT ANGIOGRAPHY: Carotid system: The great vessels demonstrate a conventional anatomy as they arise from the aortic arch. The origins of the common carotid arteries appear patent. The common carotid arteries demonstrate normal caliber and courses. The bifurcation regions are both widely patent. The internal carotid arteries demonstrate normal calibers and courses. There is mild right carotid atherosclerosis. Posterior circulation: The origins of the vertebral arteries both appear widely patent. The more superior extracranial portions of both vertebral arteries also demonstrate normal courses and calibers. They join to form a normal appearing basilar artery. Soft tissues: Visualized neck soft tissues demonstrate no suspicious abnormalities. Cervical spondylosis and facet arthropathy Is IMPRESSION: No intracranial focal stenosis or occlusion No hemodynamically significant ICA stenosis Sphenoid sinus disease as before. Any quantitative measurements of stenosis were performed using NASCET criteria. Dictated by: Efrem Forrester M.D. on 06/13/2020 at 19:30 Approved by: Efrem Forrester M.D. on 06/13/2020 at 19:34
--- NOTE | 2020-06-13 20:11 | ED_ITS ---
HPI - Dizziness <Nahomi DillEVERARDOP-BC - Last Filed: 06/13/20 20:43> General Chief Complaint: Dizziness Stated Complaint: double vision,light headed, unsteady Time Seen by Provider: 06/13/20 17:54 Source: patient Mode of arrival: Family Vehicle Limitations: no limitations History of Present Illness HPI Narrative: The patient is an 79-year-old male former smoker with history of atrial fibrillation on Coumadin, dizziness, cataract surgery, diplopia who presents with a chief complaint of approximately 15 seconds of double vision earlier today. He states that happened approximately 2 or 3:00 a.m. in the afternoon. He states he has had double vision before, and he has had that on and off since his cataract surgery. He states he does have a history of vertigo, this does not specifically feel like vertigo. He states he felt unsteady for 2 or 3 hours prior to his arrival at the emergency department today. Denies any chest pain, shortness of breath, falls or trauma. He denies any dysuria urgency or frequency. Denies any abdominal pain nausea vomiting or diarrhea. He states that his goal INR is between 2 and 3. He denies any palpitations. Related Data Home Medications Medication Instructions Recorded Confirmed multivitamin [Multiple Vitamins] 1 tab PO DAILY #0 03/06/13 05/14/20 atorvastatin [Lipitor] 10 mg PO QPM #0 07/05/16 05/14/20 cholecalciferol (vitamin D3) 2,000 unit PO DAILY #0 tab 08/03/16 05/14/20 [Vitamin D3] Iron High Potency 27 mg PO DAILY 04/09/19 05/14/20 Ocuvite 30unit 5mg 150mg 1 cap PO DAILY 04/09/19 05/14/20 metoprolol succinate 100 mg PO QAM 04/09/19 05/14/20 Previous Rx's Medication Instructions Recorded finasteride 5 mg tablet 5 mg PO Q OTHER DAY #90 tab 11/08/19 metoprolol succinate 25 mg 25 mg PO QPM #90 tab 11/08/19 tablet,extended release 24 hr tamsulosin 0.4 mg capsule 0.4 mg PO DAILY #90 cap 11/08/19 clobetasol 0.05 % topical ointment 1 applic TOPICAL BID PRN #30 gram 01/28/20 warfarin 5 mg tablet See Rx Instructions .ROUTE 12/25/19 .COMPLEX #90 tab Allergies Allergy/AdvReac Type Severity Reaction Status Date / Time No Known Drug Allergies Allergy Verified 06/13/20 16:23 Review of Systems <RATNA Lopez - Last Filed: 06/13/20 20:43> Review of Systems Narrative: GENERAL: Denies chills, fatigue, malaise, fever, sweats. HEENT: See HPI RESPIRATORY: Denies dyspnea, cough, wheezing, hemoptysis, sputum. CARDIOVASCULAR: Denies chest pain, palpitations, orthopnea, edema, GASTROINTESTINAL: Denies nausea, vomiting, abdominal pain, diarrhea, constipation, melena. : Denies dysuria, frequency, incontinence, hematuria, urinary retention. MUSCULOSKELETAL: denies weakness, joint pain, or bony pain SKIN: Denies rash, skin lesions, or other NEUROLOGIC: See HPI PSYCHIATRIC: No concerning psychosocial issues. 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) Cervical somatic dysfunction (Acute) Chest pressure (Acute) Chronic atrial fibrillation (01/02/18) Chronic bilateral low back pain without sciatica (Acute) Cranial somatic dysfunction (Acute) Diplopia (Acute) Essential hypertension (02/16/16) Foot stiffness (Acute) Incomplete emptying of bladder (02/16/16) Low HDL (under 40) (Acute) Orthostatic lightheadedness (Inactive) Pelvic somatic dysfunction (Acute) Pleural effusion (Acute) Segmental and somatic dysfunction of lumbar region (Acute) Segmental and somatic dysfunction of rib cage (Acute) Segmental and somatic dysfunction of sacral region (Acute) Segmental and somatic dysfunction of thoracic region (Acute) Somatic dysfunction of both lower extremities (Acute) Stiff neck (Acute) Vasovagal near syncope (Acute) Vitamin D deficiency (Acute) Surgical History Status post cholecystectomy Social History Smoking Status: Former smoker Smoking Status: Former smoker alcohol intake frequency: 0-2 drinks per day Substance Use Type: does not use Exam <RATNA Lopez - Last Filed: 06/13/20 20:43> Narrative Exam Narrative: GENERAL: This is a well-nourished, well-developed patient, no acute distress HEAD: Atraumatic. Normocephalic. No temporal or scalp tenderness. EYES: Pupils equal round and reactive. Extraocular motions intact. No scleral icterus. No injection or drainage. ENT: Nose without bleeding, purulent drainage or septal hematoma. Throat without erythema, tonsillar hypertrophy or exudate. Uvula midline. Airway patent. NECK: Trachea midline. No JVD or lymphadenopathy. Supple, nontender, no meningeal signs. CARDIOVASCULAR: Regular rate and irregular rhythm RESPIRATORY: Decreased to auscultation. Breath sounds equal bilaterally. No wheezes, rales, or rhonchi. No cough. No increased respiratory effort. No accessory muscle use. Speaking full sentences. GASTROINTESTINAL: Abdomen soft, non-tender, nondistended. No hepato- splenomegaly, or palpable masses. No guarding. Active bowel sounds all 4 quadrants. EXTREMITIES: No clubbing, cyanosis, or edema. No joint tenderness, effusion, or edema noted. BACK: Nontender without deformity or crepitance. No flank tenderness. NEURO: AOx3. NIH of 0. Cranial nerves grossly intact. SKIN: No rash or erythema on visible skin Initial Vital Signs Initial Vital Signs: Vital Signs Temperature 97.6 F 06/13/20 16:18 Pulse Rate 90 06/13/20 16:18 Respiratory Rate 19 06/13/20 16:18 Blood Pressure 134/95 H 06/13/20 16:18 Pulse Oximetry 97 06/13/20 16:18 <Yunior Ji DO - Last Filed: 06/14/20 01:15> Initial Vital Signs Initial Vital Signs: Vital Signs Temperature 97.6 F 06/13/20 16:18 Pulse Rate 90 06/13/20 16:18 Respiratory Rate 19 06/13/20 16:18 Blood Pressure 134/95 H 06/13/20 16:18 Pulse Oximetry 97 06/13/20 16:18 Scores <JACINTO Lopez-BC - Last Filed: 06/13/20 20:43> GCS Rubin coma scale eye opening: Spontaneous Rubin coma scale verbal response: Orientated Rubin coma scale motor response: Obey commands Rubin coma scale total score: 15 NIH Stroke Scale Level of Conciousness: Alert, keenly responsive Ask month/age: Answers both questions correctly. Open/close eyes, close hand: Performs both tasks correctly Best gaze horizontal: Normal Visual tang: No visual loss Facial palsy: Normal symetrical movement Left arm drift: No drift for full 10 sec Right arm drift: No drift for full 10 sec Left leg drift: No drift for full 10 sec Right leg drift: No drift for full 10 sec Limb ataxia: Absent Sensory on face/arms/legs: Normal, no sensory loss Best language: No aphasia, normal Dysarthria: Normal Extinction or inattention: No abnormality Total NIH Stroke scale score: 0 Course <JACINTO Lopez-BC - Last Filed: 06/13/20 20:43> Orders Ordered: ED Orders 06/13/20 16:24 XR chest 1V Stat EKG-12 Lead Stat 06/13/20 16:32 Complete Blood Count AUTO DIFF Stat Comprehensive Metabolic Panel Stat Lipase Stat Partial Thromboplastin Time Stat Prothrombin Time INR Stat Troponin & CK Cardiac Panel Stat 06/13/20 16:42 Urinalysis and Microscopic Stat 06/13/20 18:07 CT head/brain wo con Stat 06/13/20 18:43 CT angio head and neck Stat Vital Signs Vital signs: Vital Signs - 8 hr 06/13/20 17:27 06/13/20 17:30 06/13/20 18:00 Pulse Rate 85 85 83 Pulse Rate [Orthostatic Lying] Pulse Rate [Orthostatic Sitting] Pulse Rate [Orthostatic Standing] Respiratory Rate 17 14 27 H Blood Pressure 142/87 H Blood Pressure [Orthostatic Lying] Blood Pressure [Orthostatic Sitting] Blood Pressure [Orthostatic Standing] Pulse Oximetry 96 95 06/13/20 18:30 06/13/20 18:47 06/13/20 19:00 Pulse Rate 85 80 83 Pulse Rate [Orthostatic Lying] Pulse Rate [Orthostatic Sitting] Pulse Rate [Orthostatic Standing] Respiratory Rate 16 21 21 Blood Pressure 164/91 H Blood Pressure [Orthostatic Lying] Blood Pressure [Orthostatic Sitting] Blood Pressure [Orthostatic Standing] Pulse Oximetry 97 99 97 06/13/20 19:29 06/13/20 19:30 06/13/20 19:55 Pulse Rate 79 80 80 Pulse Rate [Orthostatic Lying] Pulse Rate [Orthostatic Sitting] Pulse Rate [Orthostatic Standing] Respiratory Rate 23 17 Blood Pressure 158/92 H 153/86 H Blood Pressure [Orthostatic Lying] Blood Pressure [Orthostatic Sitting] Blood Pressure [Orthostatic Standing] Pulse Oximetry 97 98 97 06/13/20 19:56 06/13/20 19:57 06/13/20 19:58 Pulse Rate 86 88 Pulse Rate [Orthostatic Lying] 78 Pulse Rate [Orthostatic Sitting] 101 H Pulse Rate [Orthostatic Standing] 101 H Respiratory Rate 18 21 Blood Pressure 160/78 H 152/78 H Blood Pressure [Orthostatic Lying] 153/86 H Blood Pressure [Orthostatic Sitting] 160/78 H Blood Pressure [Orthostatic Standing] 152/78 H Pulse Oximetry 97 97 06/13/20 20:01 06/13/20 20:24 Pulse Rate 84 81 Pulse Rate [Orthostatic Lying] Pulse Rate [Orthostatic Sitting] Pulse Rate [Orthostatic Standing] Respiratory Rate 21 37 H Blood Pressure 164/97 H Blood Pressure [Orthostatic Lying] Blood Pressure [Orthostatic Sitting] Blood Pressure [Orthostatic Standing] Pulse Oximetry 97 98 <Yunior Ji, DO - Last Filed: 06/14/20 01:15> Orders Ordered: ED Orders 06/13/20 16:24 XR chest 1V Stat EKG-12 Lead Stat 06/13/20 16:32 Complete Blood Count AUTO DIFF Stat Comprehensive Metabolic Panel Stat Lipase Stat Partial Thromboplastin Time Stat Prothrombin Time INR Stat Troponin & CK Cardiac Panel Stat 06/13/20 16:42 Urinalysis and Microscopic Stat 06/13/20 18:07 CT head/brain wo con Stat 06/13/20 18:43 CT angio head and neck Stat Vital Signs Vital signs: Vital Signs - 8 hr 06/13/20 17:27 06/13/20 17:30 06/13/20 18:00 Pulse Rate 85 85 83 Pulse Rate [Orthostatic Lying] Pulse Rate [Orthostatic Sitting] Pulse Rate [Orthostatic Standing] Respiratory Rate 17 14 27 H Blood Pressure 142/87 H Blood Pressure [Orthostatic Lying] Blood Pressure [Orthostatic Sitting] Blood Pressure [Orthostatic Standing] Pulse Oximetry 96 95 06/13/20 18:30 06/13/20 18:47 06/13/20 19:00 Pulse Rate 85 80 83 Pulse Rate [Orthostatic Lying] Pulse Rate [Orthostatic Sitting] Pulse Rate [Orthostatic Standing] Respiratory Rate 16 21 21 Blood Pressure 164/91 H Blood Pressure [Orthostatic Lying] Blood Pressure [Orthostatic Sitting] Blood Pressure [Orthostatic Standing] Pulse Oximetry 97 99 97 06/13/20 19:29 06/13/20 19:30 06/13/20 19:55 Pulse Rate 79 80 80 Pulse Rate [Orthostatic Lying] Pulse Rate [Orthostatic Sitting] Pulse Rate [Orthostatic Standing] Respiratory Rate 23 17 Blood Pressure 158/92 H 153/86 H Blood Pressure [Orthostatic Lying] Blood Pressure [Orthostatic Sitting] Blood Pressure [Orthostatic Standing] Pulse Oximetry 97 98 97 06/13/20 19:56 06/13/20 19:57 06/13/20 19:58 Pulse Rate 86 88 Pulse Rate [Orthostatic Lying] 78 Pulse Rate [Orthostatic Sitting] 101 H Pulse Rate [Orthostatic Standing] 101 H Respiratory Rate 18 21 Blood Pressure 160/78 H 152/78 H Blood Pressure [Orthostatic Lying] 153/86 H Blood Pressure [Orthostatic Sitting] 160/78 H Blood Pressure [Orthostatic Standing] 152/78 H Pulse Oximetry 97 97 06/13/20 20:01 06/13/20 20:24 Pulse Rate 84 81 Pulse Rate [Orthostatic Lying] Pulse Rate [Orthostatic Sitting] Pulse Rate [Orthostatic Standing] Respiratory Rate 21 37 H Blood Pressure 164/97 H Blood Pressure [Orthostatic Lying] Blood Pressure [Orthostatic Sitting] Blood Pressure [Orthostatic Standing] Pulse Oximetry 97 98 MDM - Dizziness <JACINTO Lopez-BC - Last Filed: 06/13/20 20:43> Lab Data Result diagrams: 06/13/20 16:32 06/13/20 16:32 Labs: Lab Results 06/13/20 06/13/20 06/13/20 Range/Units 16:32 16:32 16:32 WBC 5.9 (4.5-11.0) X10^3/uL RBC 4.72 (4.5-5.9) X10^6/uL Hgb 14.3 (13.5-17.5) g/dL Hct 42.3 (41-53) % MCV 89.6 (80-100) fL MCH 30.3 (26-34) PG MCHC 33.8 (30-36) % RDW 14.1 (11.6-14.8) % Plt Count 269 (150-400) X10^3/uL Neut % (Auto) 64.4 (50-75) % Lymph % (Auto) 18.1 L (25-40) % [place] % (Auto) 12.2 (3-14) % Eos % (Auto) 3.5 (2-4) % Baso % (Auto) 1.8 (0-2) % Neut # (Auto) 3800 (4198-9189) /uL Lymph # (Auto) 1100 (5539-6206) /uL [place] # (Auto) 700 (0-900) /uL Eos # (Auto) 200 (0-450) /uL Baso # (Auto) 100 (0-100) /uL PT 24.3 H (10.1-12.7) SECONDS INR 2.1 H (0.9-1.3) APTT 43 H D (26.4-36.2) SECONDS Sodium 136 L (137-145) mmol/L Potassium 3.8 (3.4-5.1) mmol/L Chloride 104 (98-107) mmol/L Carbon Dioxide 27 (22-32) mmol/L BUN 17 (9-20) mg/dL Creatinine 1.01 (0.66-1.25) mg/dL Estimated GFR > 60.0 (>60) mL/min BUN/Creatinine Ratio 16.8 (6-22) Glucose 113 H (80-110) mg/dL Calcium 8.8 (8.4-10.2) mg/dL Total Bilirubin 1.6 H (0.2-1.3) mg/dL AST 31 (17-59) IU/L ALT 23 (<50) IU/L Alkaline Phosphatase 99 (38-126) U/L Total Creatine Kinase 55 (55-170) U/L CK-MB (CK-2) TNP CK-MB (CK-2) Rel Index TNP Troponin I < 0.012 (0.01-0.034) ng/mL Total Protein 6.8 (6.3-8.2) g/dL Albumin 3.9 (3.5-5.0) g/dL Globulin 2.9 (1.7-4.1) g/dL Albumin/Globulin Ratio 1.3 (1.0-2.8) Lipase 288 (23-300) U/L Urine Color Urine Appearance Urine pH (4.5-8.0) Ur Specific [place] (1.000-1.035) Urine Protein (Negative) Urine Glucose (UA) (Negative) g/dL Urine Ketones (NEGATIVE) Urine Occult Blood (Negative) Urine Nitrate (Negative) Urine Bilirubin (NEGATIVE) Urine Urobilinogen (0.2) E.U./dL Ur Leukocyte Esterase (NEGATIVE) Urine RBC (0-5/HPF) Urine WBC (0-5/HPF) Urine Bacteria (None) Ur Culture Indicated? Micro UA Comment 06/13/20 Range/Units 16:42 WBC (4.5-11.0) X10^3/uL RBC (4.5-5.9) X10^6/uL Hgb (13.5-17.5) g/dL Hct (41-53) % MCV (80-100) fL MCH (26-34) PG MCHC (30-36) % RDW (11.6-14.8) % Plt Count (150-400) X10^3/uL Neut % (Auto) (50-75) % Lymph % (Auto) (25-40) % [place] % (Auto) (3-14) % Eos % (Auto) (2-4) % Baso % (Auto) (0-2) % Neut # (Auto) (9442-0552) /uL Lymph # (Auto) (9897-0540) /uL [place] # (Auto) (0-900) /uL Eos # (Auto) (0-450) /uL Baso # (Auto) (0-100) /uL PT (10.1-12.7) SECONDS INR (0.9-1.3) APTT (26.4-36.2) SECONDS Sodium (137-145) mmol/L Potassium (3.4-5.1) mmol/L Chloride (98-107) mmol/L Carbon Dioxide (22-32) mmol/L BUN (9-20) mg/dL Creatinine (0.66-1.25) mg/dL Estimated GFR (>60) mL/min BUN/Creatinine Ratio (6-22) Glucose (80-110) mg/dL Calcium (8.4-10.2) mg/dL Total Bilirubin (0.2-1.3) mg/dL AST (17-59) IU/L ALT (<50) IU/L Alkaline Phosphatase (38-126) U/L Total Creatine Kinase (55-170) U/L CK-MB (CK-2) CK-MB (CK-2) Rel Index Troponin I (0.01-0.034) ng/mL Total Protein (6.3-8.2) g/dL Albumin (3.5-5.0) g/dL Globulin (1.7-4.1) g/dL Albumin/Globulin Ratio (1.0-2.8) Lipase (23-300) U/L Urine Color Yellow Urine Appearance Clear Urine pH 6.0 (4.5-8.0) Ur Specific [place] 1.020 (1.000-1.035) Urine Protein Negative (Negative) Urine Glucose (UA) Negative (Negative) g/dL Urine Ketones Negative (NEGATIVE) Urine Occult Blood Negative (Negative) Urine Nitrate Negative (Negative) Urine Bilirubin Negative (NEGATIVE) Urine Urobilinogen 0.2 (0.2) E.U./dL Ur Leukocyte Esterase Trace H (NEGATIVE) Urine RBC None seen (0-5/HPF) Urine WBC None seen (0-5/HPF) Urine Bacteria None seen (None) Ur Culture Indicated? Cult not indicated Micro UA Comment Microscopic normal Urine Dip Bedside Urine Glucose Negative Bedside Urine Bilirubin - Negative Bedside Urine Ketone - Negative Urine Specific [place] 1.025 Bedside Urine Occult Blood - Negative Bedside Urine pH 6.0 Bedside Urine Protein - Negative Bedside Urine Urobilinogen +/- 1mg Bedside Urine Nitrite - Negative Bedside Urine Leukocytes +++ 500 Esterase Imaging Data head/ neck CTA: Radiologist's Impression: [address] [place] [id number] Scan Report Signed Patient: Nestor Mercedes CMR#: [id number] : 1940Acct:[id number] Age/Sex: 79 / MDate of Service: 06/13/20 Loc: ED Accession Number: [id number] Procedure: CT angio head and neck Ordering Provider: Nahomi Dill [employer]-BC PROCEDURE: CT ANGIO HEAD AND NECK INDICATIONS: dizzy, diplopia TECHNIQUE: Pre-contrast 4.5 mm thick sections acquired from the foramen magnum to the vertex. After the administration of intravenous contrast, 1 mm thick sections acquired from the aortic arch through the [place] of [place]. Post-contrast 4.5 mm thick sections then re- acquired from the foramen magnum to the vertex. 3-dimensional amaminc-nlxyomoxt-jfggniletj (MIP) and/or volume rendering reformats were acquired of the central intracranial vasculature and neck separately. COMPARISON: [facility], CT, CT ANGIO HEAD AND NECK, 04/11/2020, 11:23. FINDINGS: Image quality: Excellent. BRAIN: CSF spaces: Ventricles are normal in size and shape. Basal cisterns are patent. No extra-axial fluid collections. Brain: No midline shift. No intracranial bleeds or masses. [place]-white matter interface appears intact. Skull and face: Calvarium and facial bones appear intact, without suspicious lesions. Orbits appear normal. Sphenoid sinus disease with near complete opacification. HEAD CT ANGIOGRAPHY: Anterior circulation: Intracranial internal carotid arteries are normal in size and flow. The flow within the paired anterior cerebral arteries is normal and symmetric. The flow within the middle cerebral arteries is normal and symmetric. The anterior communicating artery is seen. No aneurysms are seen. Posterior circulation: Visualized portions of the vertebral arteries demonstrate normal caliber, and join to form a normal appearing basilar artery. Flow within the posterior cerebral arteries is normal and symmetric. No aneurysms are seen. NECK CT ANGIOGRAPHY: Carotid system: The great vessels demonstrate a conventional anatomy as they arise from the aortic arch. The origins of the common carotid arteries appear patent. The common carotid arteries demonstrate normal caliber and courses. The bifurcation regions are both widely patent. The internal carotid arteries demonstrate normal calibers and courses. There is mild right carotid atherosclerosis. Posterior circulation: The origins of the vertebral arteries both appear widely patent. The more superior extracranial portions of both vertebral arteries also demonstrate normal courses and calibers. They join to form a normal appearing basilar artery. Soft tissues: Visualized neck soft tissues demonstrate no suspicious abnormalities. Cervical spondylosis and facet arthropathy Is IMPRESSION: No intracranial focal stenosis or occlusion No hemodynamically significant ICA stenosis Sphenoid sinus disease as before. Any quantitative measurements of stenosis were performed using NASCET criteria. Dictated by: Efrem Forrester M.D. on 06/13/2020 at 19:30 Approved by: Efrem Forrester M.D. on 06/13/2020 at 19:34 CT scan - head: Radiologist's Impression: [address] [place] [id number] Scan Report Signed Patient: Nestor Mercedes CMR#: [id number] : 8Acct:[id number] Age/Sex: 79 / MDate of Service: 06/13/20 Loc: ED Accession Number: [id number] Procedure: CT head/brain wo con Ordering Provider: Nahomi Dill-USMAN PROCEDURE: CT HEAD/BRAIN WO CON INDICATIONS: dizzy TECHNIQUE: Noncontrast 4.5 mm thick angled axial sections acquired from the foramen magnum to the vertex, with coronal and sagittal reformats. For radiation dose reduction, the following was used: automated exposure control, adjustment of mA and/or kV according to patient size. COMPARISON: [facility], CT, CT HEAD/BRAIN WO CON, 04/11/2020, 8:40. FINDINGS: Image quality: Excellent. CSF spaces: Basal cisterns are patent. No extra-axial fluid collections. The ventricles are stable.. Brain: No intracranial bleeds or masses. There is cerebral volume loss for age, with resultant ventricular and sulcal prominence. There are periventricular and deep white matter chronic small vessel ischemic changes. There is intracranial internal carotid artery atherosclerosis. Skull and face: Calvarium and visualized facial bones appear intact, without suspicious lesions. Sinuses: Visualized sinuses and mastoids are clear. IMPRESSION: No acute intracranial process. Dictated by: Efrem Forrester M.D. on 06/13/2020 at 18:26 Approved by: Efrem Forrester M.D. on 06/13/2020 at 18:28 Chest x-ray: Radiologist's Impression: [address] [place] [id number] XRay Report Signed Patient: Nestor Mercedes CMR#: [id number] : 8Acct:[id number] Age/Sex: 79 / MDate of Service: 06/13/20 Loc: ED Accession Number: [id number] Procedure: XR chest 1V Ordering Provider: Lobo George MD PROCEDURE: XR CHEST 1V INDICATIONS: chest pain TECHNIQUE: One view of the chest was acquired. COMPARISON: [facility], CHEST 1 VIEW, 07/05/2016, 8:26. [facility], CHEST 2 VIEW, 08/17/2016, 8:48. [facility], CHEST 2 VIEW, 03/05/2018, 9:42. FINDINGS: Surgical changes and devices: None. Lungs and pleura: Low lung volumes are noted. This causes a crowded appearance to the lung markings and limits evaluation. Blunting of both costophrenic angles is seen. Interstitial prominence is seen. No pneumothorax is seen. Mediastinum: The cardiac contours are mildly enlarged. The aorta demonstrates calcification and tortuosity. Bones and chest wall: No suspicious bony lesions. Age-appropriate bony degenerative changes are seen. Overlying soft tissues appear unremarkable. IMPRESSION: Mild cardiomegaly, pleural effusions, and interstitial prominence. Please correlate with patient presentation, physical examination findings, and laboratory values for congestive heart failure. Dictated by: Rafal Jackson M.D. on 06/13/2020 at 16:10 Approved by: Rafal Jackson M.D. on 06/13/2020 at 16:11 ECG Data Attestation: I personally reviewed and interpreted this ECG as follows: Interpretation: Atrial fibrillation. Ventricular rate 90. No ectopy noted. Viewed by Dr Doris BHANDARI Narrative Medical decision making narrative: The patient is an 79-year-old male who presents with a chief complaint of diaper play a for 15 seconds earlier today as well as generalized unsteadiness approximately 2-3 hours. He is without symptoms in the emergency department, states he feels much improved. He has a history of dive flu please since his cataract surgery. I discussed that could possibly be a TIA, but he feels as though it is likely related to his surgery as he has had multiple episodes of it. I did discuss the possibility of admission for observation, but the patient would strongly prefer to go home. He has normal head CT, CTA head and neck. His labs are grossly normal as well. Urinalysis has no signs of infection. The patient feels much improved and is requesting to go home. Of note the patient does have a new prescription for glasses at home, which he states he was supposed to fill and has not done yet. I encouraged him to do so. I discussed at length the importance of following up with primary care provider in the next few days as well as coming back to the emergency department for any acute concerns. Patient has no questions or concerns upon discharge and states understanding return precautions of any acute concerns such as concern of heart attack stroke as well as follow-up care with primary care provider. <Yunior Ji DO - Last Filed: 06/14/20 01:15> Lab Data Labs: Lab Results 06/13/20 06/13/20 06/13/20 Range/Units 16:32 16:32 16:32 WBC 5.9 (4.5-11.0) X10^3/uL RBC 4.72 (4.5-5.9) X10^6/uL Hgb 14.3 (13.5-17.5) g/dL Hct 42.3 (41-53) % MCV 89.6 (80-100) fL MCH 30.3 (26-34) PG MCHC 33.8 (30-36) % RDW 14.1 (11.6-14.8) % Plt Count 269 (150-400) X10^3/uL Neut % (Auto) 64.4 (50-75) % Lymph % (Auto) 18.1 L (25-40) % [place] % (Auto) 12.2 (3-14) % Eos % (Auto) 3.5 (2-4) % Baso % (Auto) 1.8 (0-2) % Neut # (Auto) 3800 (6973-2205) /uL Lymph # (Auto) 1100 (2308-1444) /uL [place] # (Auto) 700 (0-900) /uL Eos # (Auto) 200 (0-450) /uL Baso # (Auto) 100 (0-100) /uL PT 24.3 H (10.1-12.7) SECONDS INR 2.1 H (0.9-1.3) APTT 43 H D (26.4-36.2) SECONDS Sodium 136 L (137-145) mmol/L Potassium 3.8 (3.4-5.1) mmol/L Chloride 104 (98-107) mmol/L Carbon Dioxide 27 (22-32) mmol/L BUN 17 (9-20) mg/dL Creatinine 1.01 (0.66-1.25) mg/dL Estimated GFR > 60.0 (>60) mL/min BUN/Creatinine Ratio 16.8 (6-22) Glucose 113 H (80-110) mg/dL Calcium 8.8 (8.4-10.2) mg/dL Total Bilirubin 1.6 H (0.2-1.3) mg/dL AST 31 (17-59) IU/L ALT 23 (<50) IU/L Alkaline Phosphatase 99 (38-126) U/L Total Creatine Kinase 55 (55-170) U/L CK-MB (CK-2) TNP CK-MB (CK-2) Rel Index TNP Troponin I < 0.012 (0.01-0.034) ng/mL Total Protein 6.8 (6.3-8.2) g/dL Albumin 3.9 (3.5-5.0) g/dL Globulin 2.9 (1.7-4.1) g/dL Albumin/Globulin Ratio 1.3 (1.0-2.8) Lipase 288 (23-300) U/L Urine Color Urine Appearance Urine pH (4.5-8.0) Ur Specific [place] (1.000-1.035) Urine Protein (Negative) Urine Glucose (UA) (Negative) g/dL Urine Ketones (NEGATIVE) Urine Occult Blood (Negative) Urine Nitrate (Negative) Urine Bilirubin (NEGATIVE) Urine Urobilinogen (0.2) E.U./dL Ur Leukocyte Esterase (NEGATIVE) Urine RBC (0-5/HPF) Urine WBC (0-5/HPF) Urine Bacteria (None) Ur Culture Indicated? Micro UA Comment 06/13/20 Range/Units 16:42 WBC (4.5-11.0) X10^3/uL RBC (4.5-5.9) X10^6/uL Hgb (13.5-17.5) g/dL Hct (41-53) % MCV (80-100) fL MCH (26-34) PG MCHC (30-36) % RDW (11.6-14.8) % Plt Count (150-400) X10^3/uL Neut % (Auto) (50-75) % Lymph % (Auto) (25-40) % [place] % (Auto) (3-14) % Eos % (Auto) (2-4) % Baso % (Auto) (0-2) % Neut # (Auto) (7558-3462) /uL Lymph # (Auto) (8722-2910) /uL [place] # (Auto) (0-900) /uL Eos # (Auto) (0-450) /uL Baso # (Auto) (0-100) /uL PT (10.1-12.7) SECONDS INR (0.9-1.3) APTT (26.4-36.2) SECONDS Sodium (137-145) mmol/L Potassium (3.4-5.1) mmol/L Chloride (98-107) mmol/L Carbon Dioxide (22-32) mmol/L BUN (9-20) mg/dL Creatinine (0.66-1.25) mg/dL Estimated GFR (>60) mL/min BUN/Creatinine Ratio (6-22) Glucose (80-110) mg/dL Calcium (8.4-10.2) mg/dL Total Bilirubin (0.2-1.3) mg/dL AST (17-59) IU/L ALT (<50) IU/L Alkaline Phosphatase (38-126) U/L Total Creatine Kinase (55-170) U/L CK-MB (CK-2) CK-MB (CK-2) Rel Index Troponin I (0.01-0.034) ng/mL Total Protein (6.3-8.2) g/dL Albumin (3.5-5.0) g/dL Globulin (1.7-4.1) g/dL Albumin/Globulin Ratio (1.0-2.8) Lipase (23-300) U/L Urine Color Yellow Urine Appearance Clear Urine pH 6.0 (4.5-8.0) Ur Specific [place] 1.020 (1.000-1.035) Urine Protein Negative (Negative) Urine Glucose (UA) Negative (Negative) g/dL Urine Ketones Negative (NEGATIVE) Urine Occult Blood Negative (Negative) Urine Nitrate Negative (Negative) Urine Bilirubin Negative (NEGATIVE) Urine Urobilinogen 0.2 (0.2) E.U./dL Ur Leukocyte Esterase Trace H (NEGATIVE) Urine RBC None seen (0-5/HPF) Urine WBC None seen (0-5/HPF) Urine Bacteria None seen (None) Ur Culture Indicated? Cult not indicated Micro UA Comment Microscopic normal Urine Dip Bedside Urine Glucose Negative Bedside Urine Bilirubin - Negative Bedside Urine Ketone - Negative Urine Specific [place] 1.025 Bedside Urine Occult Blood - Negative Bedside Urine pH 6.0 Bedside Urine Protein - Negative Bedside Urine Urobilinogen +/- 1mg Bedside Urine Nitrite - Negative Bedside Urine Leukocytes +++ 500 Esterase Discharge Plan Departure Patient Disposition: Home Clinical Impression: Dizziness, Diplopia Discharge Date/Time: 06/13/20 20:30 Instructions: DI for Dizziness-Nonvertigo, DI for Double Vision Activity Restrictions/Additional Instructions: Thank you for trusting us for care today. As discussed, your imaging came back well. Please rest and push fluids. Please follow-up with primary care provider in the next few days. As discussed, I suggest getting your new glasses prescription filled. Please come back to the emergency department for any acute concerns such as chest pain, shortness of breath, concern of heart attack or stroke Prescriptions: No Action multivitamin [Multiple Vitamins] 1 EACH tablet 1 tab PO DAILY Qty: 0 RF: 0 atorvastatin [Lipitor] 10 MG tablet 10 mg PO QPM Qty: 0 RF: 0 cholecalciferol (vitamin D3) [Vitamin D3] 2,000 UNIT tablet 2,000 unit PO DAILY Qty: 0 RF: 0 warfarin 5 mg tablet See Rx Instructions .ROUTE .COMPLEX Qty: 90 RF: 3 finasteride 5 mg tablet 5 mg PO Q OTHER DAY Qty: 90 RF: 3 metoprolol succinate [Toprol XL] 25 mg tablet extended release 24 hr 25 mg PO QPM Qty: 90 RF: 3 tamsulosin 0.4 mg capsule 0.4 mg PO DAILY Qty: 90 RF: 3 clobetasol 0.05 % ointment 1 applic topical BID PRN (Reason: as directed) Qty: 30 RF: 3 metoprolol succinate 100 MG tablet extended release 24 hr 100 mg PO QAM RF: 0 Iron High Potency 27 mg tablet 27 mg PO DAILY RF: 0 Ocuvite 30unit 5mg 150mg 1 cap PO DAILY RF: 0 Referrals: Oleksandr Pinto DO [Primary Care Provider] - <Yunior Ji DO - Last Filed: 06/14/20 01:15> Cosign ED Attending Tannerature Attestation: I was immediately available in the department for consultation. This documentation has been reviewed and I agree with assessment and plan. Supervised by Yunior Ji,
== END 2020-06-13 20:30 | disposition home or self-care (01) ==
PROVIDERS: Emergency Medicine; Emergency Provider Nurse Practitioner Family; PCP Family Medicine
DX: R42 Dizziness and giddiness (principal); H53.2 Diplopia; R07.9 Chest pain, unspecified; I48.91 Unspecified atrial fibrillation; Z79.01 Long term (current) use of anticoagulants
CPT/HCPCS: 36415; 70450; 70496; 70498; 71045; 80053; 81001; 81003; 82550; 83690; 84484; 85025; 85610; 85730; 93005; 99284; Q9967

== ENCOUNTER 2020-07-18 16:34 | Observation (INO) | payer MEDICARE, OTHER, SELFPAY ==
[2020-07-18 16:40] VITALS: BP 186/86; PULSE 86; RESP 18; TEMP 36.8; O2SAT 96; BMI 23.7
--- NOTE | 2020-07-18 16:44 | DI.CT.S_ITS ---
PROCEDURE: CT STROKE INDICATIONS: L arm weakness TECHNIQUE: Noncontrast 4.5 mm thick angled axial sections acquired from the foramen magnum to the vertex, with coronal reformats. For radiation dose reduction, the following was used: automated exposure control, adjustment of mA and/or kV according to patient size. COMPARISON: [facility], CT, CT ANGIO HEAD AND NECK, 06/13/2020, 18:59. [facility], CT, CT HEAD/BRAIN WO CON, 06/13/2020, 18:04. [facility], CT, CT ANGIO HEAD AND NECK, 04/11/2020, 11:23. [facility], CT, CT HEAD/BRAIN WO CON, 04/11/2020, 8:40. [facility], CT, CT STROKE, 02/23/2020, 19:29. FINDINGS: Image quality: Excellent. CSF spaces: Basal cisterns are patent. No extra-axial fluid collections. The ventricles are symmetric in size and shape. Brain: No intracranial bleeds or masses. There is cerebral volume loss for age, with resultant ventricular and sulcal prominence. There are periventricular and deep white matter chronic small vessel ischemic changes. There is intracranial internal carotid artery atherosclerosis. Skull and face: Calvarium and visualized facial bones appear intact, without suspicious lesions. Sinuses: Visualized sinuses and mastoids are clear. IMPRESSION: No acute intracranial hemorrhage is seen. No acute intracranial process is seen. If there is strong clinical suspicion for an acute stroke, please consider an MRI for further evaluation, as it is more sensitive (assuming that there is no contraindication to MRI). Note: Case discussed by telephone with SAHRA Frankel at 3:57 p.m. [place] time on July 18, 2020. This study fulfills neurological imaging criteria for inclusion or exclusion of acute stroke therapies based on available published neurological guidelines. Dictated by: Rafal Jackson M.D. on 07/18/2020 at 15:56 Approved by: Rafal Jackson M.D. on 07/18/2020 at 15:59
--- NOTE | 2020-07-18 16:45 | DI.CT.S_ITS ---
PROCEDURE: CT ANGIO HEAD AND NECK INDICATIONS: L arm weakness TECHNIQUE: Pre-contrast 4.5 mm thick sections acquired from the foramen magnum to the vertex. After the administration of intravenous contrast, 1 mm thick sections acquired from the aortic arch through the [place] of [place]. Post-contrast 4.5 mm thick sections then re-acquired from the foramen magnum to the vertex. 3-dimensional sycqnex-zuurhbnpn-ybqlmtwzwe (MIP) and/or volume rendering reformats were acquired of the central intracranial vasculature and neck separately. COMPARISON: [facility], CT, CT STROKE, 07/18/2020, 16:47. [facility], CT, CT HEAD/BRAIN WO CON, 06/13/2020, 18:04. [facility], CR, XR CHEST 1V, 06/13/2020, 16:57. [facility], CT, CT ANGIO HEAD AND NECK, 04/11/2020, 11:23. [facility], CT, CT HEAD/BRAIN WO CON, 04/11/2020, 8:40. [facility], CT, CT STROKE, 02/23/2020, 19:29. [facility], CT, CT ANGIO HEAD AND NECK, 02/23/2020, 19:29. [facility], CT, CT HEAD/BRAIN WO CON, 10/16/2019, 1:50. [facility], CT, CT ANGIO HEAD AND NECK, 06/13/2020, 18:59. FINDINGS: Image quality: Excellent. BRAIN: CSF spaces: Ventricles are normal in size and shape. Basal cisterns are patent. No extra-axial fluid collections. Brain: No midline shift. No intracranial bleeds or masses. [place]-white matter interface appears intact. Skull and face: Calvarium and facial bones appear intact, without suspicious lesions. Orbits appear normal. Sinuses: Focal moderate mucosal thickening is seen within the sphenoid sinuses. Mild mucosal thickening is seen elsewhere within the paranasal sinuses. No abnormal fluid is seen within the mastoid air cells. HEAD CT ANGIOGRAPHY: Anterior circulation: Intracranial internal carotid arteries demonstrate generalized atherosclerotic irregularity and calcification. There is 50-60% narrowing on the right side and 40-50% narrowing on the left. The flow within the paired anterior cerebral arteries is normal and symmetric. The flow within the middle cerebral arteries is normal and symmetric. The anterior communicating artery is seen. No aneurysms are seen. Posterior circulation: Visualized portions of the vertebral arteries demonstrate normal caliber, and join to form a normal appearing basilar artery. Flow within the posterior cerebral arteries is normal and symmetric. No aneurysms are seen. NECK CT ANGIOGRAPHY: Carotid system: The great vessels demonstrate a conventional anatomy as they arise from the aortic arch. The origins of the common carotid arteries appear patent. The common carotid arteries demonstrate normal caliber and courses. The bifurcation regions demonstrate atherosclerotic irregularity, without a hemodynamically significant stenosis seen involving the proximal internal carotid arteries. Approximately 20% stenosis can be seen involving each proximal internal carotid artery. The more distal internal carotid arteries are unremarkable. Posterior circulation: The origins of the vertebral arteries both appear widely patent. The more superior extracranial portions of both vertebral arteries also demonstrate normal courses and calibers. They join to form a normal appearing basilar artery. Soft tissues: Visualized neck soft tissues demonstrate no suspicious abnormalities. Emphysematous changes are seen at the lung apices. Bones: No suspicious bony lesions. Visualized cervical spine appears normally aligned. Relatively prominent cervical spine degenerative changes are seen, with at least moderate disc space narrowing seen at each level. IMPRESSION: Generalized calcification and irregularity can be seen involving the intracranial internal carotid arteries, with 50-60% narrowing on the right and 40-50% narrowing on the left. No additional intracranial arterial stenosis is seen. Within the arteries of the neck, no hemodynamically significant stenosis can be seen. Atherosclerotic calcification and irregularity can be seen involving the carotid bifurcations, with approximately 20% narrowing seen on each side. Paranasal sinus disease is seen, which is most prominent within the sphenoid sinuses. Cervical spine degenerative change is seen. Any quantitative measurements of stenosis were performed using NASCET criteria. Dictated by: Rafal Jackson M.D. on 07/18/2020 at 16:15 Approved by: Rafal Jackson M.D. on 07/18/2020 at 16:19
--- NOTE | 2020-07-18 16:47 | ED.NEUROSD ---
HPI - Neuro Symptoms/Deficit <SAHRA Frankel - Last Filed: 07/18/20 19:01> General Chief Complaint: Neuro Symptoms/Deficit Stated Complaint: left arm numb, cant garment liner anything Time Seen by Provider: 07/18/20 16:37 History of Present Illness HPI Narrative: 80yo male with a history of HLD, A-Fib, A-fib, and currently on warfarin, presents to the ED for sudden L arm weakness that started approximately 1600 today. Patient states he was reading the newspaper when he dropped a because his left hand felt numb and weak. Patient states symptoms have mostly resolved, however he has a small amount of remaining left arm weakness. Patient states his slightly difficult to express his speech. Patient denies any other symptoms such as vision changes, double vision, vision loss, facial droop, difficulty swallowing, dizziness, syncope, chest pain, shortness of breath, nausea, vomiting, diarrhea, or other concerns. Code stroke initiated after consultation with Dr. Vera. Related Data Home Medications Medication Instructions Recorded Confirmed multivitamin [Multiple Vitamins] 1 tab PO DAILY #0 03/06/13 07/23/20 cholecalciferol (vitamin D3) 2,000 unit PO DAILY #0 tab 08/03/16 07/23/20 [Vitamin D3] Iron High Potency 27 mg PO DAILY 04/09/19 07/23/20 Ocuvite 30unit 5mg 150mg 1 cap PO DAILY 04/09/19 07/23/20 metoprolol succinate 100 mg PO QAM 04/09/19 07/23/20 metoprolol succinate [Toprol XL] 25 mg PO BEDTIME 07/18/20 07/23/20 tamsulosin 0.4 mg PO BEDTIME 07/18/20 07/23/20 Previous Rx's Medication Instructions Recorded finasteride 5 mg tablet 5 mg PO Q OTHER DAY #90 tab 11/08/19 clobetasol 0.05 % topical ointment 1 applic TOPICAL BID PRN #30 gram 12/10/19 warfarin 5 mg tablet See Rx Instructions .ROUTE 12/25/19 .COMPLEX #90 tab atorvastatin 40 mg PO BEDTIME #30 tab 07/19/20 Allergies Allergy/AdvReac Type Severity Reaction Status Date / Time No Known Drug Allergies Allergy Verified 07/23/20 11:01 Review of Systems <SAHRA Frankel - Last Filed: 07/18/20 19:01> Review of Systems Narrative: REVIEW OF SYSTEMS: GENERAL: Denies fever or chills. HENT: No head trauma. EYES: No loss of vision, double vision, eye pain, or irritation. CARDIOVASCULAR: No chest pain. RESPIRATORY: No shortness of breath or cough. GASTROINTESTINAL: No nausea, vomiting, diarrhea, or constipation. GENITOURINARY: No flank pain or dysuria. MUSCULOSKELETAL: No pain or trauma. INTEGUMENTARY: No rash. NEURO: Reports left arm weakness and numbness, see HPI. Reports slow to form words, see HPI P PSYCH: No behavior or mood changes. 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) BPPV (benign paroxysmal positional vertigo) (Acute) 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) Cervical somatic dysfunction (Acute) Chest pressure (Acute) Chronic atrial fibrillation (01/02/18) Chronic bilateral low back pain without sciatica (Acute) Cranial somatic dysfunction (Acute) Diplopia (Acute) Essential hypertension (02/16/16) Foot stiffness (Acute) Incomplete emptying of bladder (02/16/16) Low HDL (under 40) (Acute) Orthostatic lightheadedness (Inactive) Pelvic somatic dysfunction (Acute) Pleural effusion (Acute) Segmental and somatic dysfunction of lumbar region (Acute) Segmental and somatic dysfunction of rib cage (Acute) Segmental and somatic dysfunction of sacral region (Acute) Segmental and somatic dysfunction of thoracic region (Acute) Somatic dysfunction of both lower extremities (Acute) Stiff neck (Acute) Vasovagal near syncope (Acute) Vitamin D deficiency (Acute) Surgical History Hx of cholecystectomy (Acute) Status post cholecystectomy Family History Mother CVA (cerebral vascular accident) Father Diabetes mellitus Social History household members: none Smoking Status: Former smoker alcohol intake: former Smoking Status: Former smoker alcohol intake frequency: 0-2 drinks per day Substance Use Type: does not use Exam <SAHRA Frankel - Last Filed: 07/18/20 19:01> Initial Vital Signs Initial Vital Signs: Vital Signs Temperature 98.3 F 07/18/20 16:40 Pulse Rate 86 07/18/20 16:40 Respiratory Rate 18 07/18/20 16:40 Blood Pressure 186/86 H 07/18/20 16:40 Pulse Oximetry 96 07/18/20 16:40 PHYSICAL EXAMINATION: GENERAL: Well groomed, alert, and cooperative. Answers questions promptly and appropriately. Vital signs noted. HENT: Normocephalic, atraumatic. Ear canals patent. Oral mucosa is pink and moist. EYES: PERRLA, EOMIs, conjunctiva pink, sclera white, no periorbital swelling. CHEST: Normal to inspection and without deformities. CARDIOVASCULAR: S1 and S2 sounds normal. 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 RESPIRATORY: Normal respiratory rate, trachea midline, airway patent. No stridor, nasal flaring or accessory muscle use. Lungs are clear in all tang without wheeze, rhonchi, or crackles. GASTROINTESTINAL: Bowel sounds normoactive. Abdomen is soft and non-tender. No organomegaly. MUSCULOSKELETAL: Normal gait and coordination. Equal tone and mass bilaterally. EXTREMITIES: CMS intact. Moves all extremities. SKIN: Warm, dry, soft, appropriate color for ethnicity. No lesions, rashes, or wounds. NEURO: Alert and Oriented X 3. Good coordination. No ataxia, or sensory deficits. Initial NIH score of 1 due to dysarthria. Slight decrease in strength noted to left arm initially which improved upon re-evaluation. Re-evaluation of NIH score is now 0. PSYCH: Appropriate affect and mood. <Nestor Vera MD - Last Filed: 07/24/20 07:34> Initial Vital Signs Initial Vital Signs: Vital Signs Temperature 98.3 F 07/18/20 16:40 Pulse Rate 86 07/18/20 16:40 Respiratory Rate 18 07/18/20 16:40 Blood Pressure 186/86 H 07/18/20 16:40 Pulse Oximetry 96 07/18/20 16:40 Scores <SAHRA Frankel - Last Filed: 07/18/20 19:01> NIH Stroke Scale Level of Conciousness: Alert, keenly responsive Ask month/age: Answers both questions correctly. Open/close eyes, close hand: Performs both tasks correctly Best gaze horizontal: Normal Visual tang: No visual loss Facial palsy: Normal symetrical movement Left arm drift: No drift for full 10 sec Right arm drift: No drift for full 10 sec Left leg drift: No drift for full 10 sec Right leg drift: No drift for full 10 sec Limb ataxia: Absent Sensory on face/arms/legs: Normal, no sensory loss Best language: No aphasia, normal Dysarthria: Mild to mod,some slurring Extinction or inattention: No abnormality Total NIH Stroke scale score: 1 Course <SAHRA Frankel - Last Filed: 07/18/20 19:01> Course Course Narrative: I spoke with Dr. Vera upon arrival, recommended code stroke activation. 1724: Spoke with Dr. Wood from telestroke, CT a recommended. Patient not a candidate for tPA. 1735: Patient states symptoms are resolving, NIH score of 0 at this time. Discussed possible admission with patient, patient consented. 1750: Patient admitted to Dr. Cain, discussed test, test results, plan of care. Accepted to observation with a tele. Orders Ordered: Discontinued Medications Acetaminophen (Tylenol) 650 mg PO Q6HR PRN PRN Reason: Fever/Mild Pain (1-3) Atorvastatin Calcium (Lipitor) 10 mg PO BEDTIME REN Atorvastatin Calcium (Lipitor) 40 mg PO BEDTIME REN Last Admin: 07/18/20 21:35 Dose: 40 mg Documented by: SUSHMA Finasteride (Proscar) 5 mg PO Q48H REN Last Admin: 07/18/20 22:10 Dose: Not Given Documented by: SUSHMA Finasteride (Proscar) 5 mg PO Q48H REN Sodium Chloride (Normal Saline 0.9%) 1,000 mls @ 150 mls/hr IV CONT REN Last Admin: 07/19/20 01:06 Dose: 150 mls/hr Documented by: Infusion: 07/19/20 01:06 Dose: 150 mls/hr Documented by: Infusion: 07/18/20 21:29 Dose: 150 mls/hr Documented by: Infusion: 07/18/20 18:45 Dose: 0 mls/hr Documented by: Admin: 07/18/20 17:33 Dose: 150 mls/hr Documented by: VIOLETA Metoprolol Succinate (Toprol Xl) 100 mg PO DAILY [facility] Last Admin: 07/19/20 08:22 Dose: 100 mg Documented by: Admin: 07/18/20 21:35 Dose: 100 mg Documented by: SUSHMA Naloxone HCl (Narcan) 0.2 mg IV Q2MIN PRN PRN Reason: Opiate Reversal Ondansetron HCl (Zofran) 4 mg IV Q8HR PRN PRN Reason: Nausea And Vomiting Tamsulosin HCl (Flomax) 0.4 mg PO BEDTIME [facility] Last Admin: 07/18/20 21:36 Dose: 0.4 mg Documented by: SUSHMA Warfarin Sodium (Coumadin) 5 mg PO TuSa@17 [facility] Warfarin Sodium (Coumadin) 2.5 mg PO SuMoWeThFr@1700 [facility] Warfarin Sodium (Coumadin) 2.5 mg PO SuMoWeThFr@1700 [facility] Warfarin Sodium (Coumadin) 5 mg PO TuSa@17 [facility] Last Admin: 07/18/20 22:09 Dose: 5 mg Documented by: SUSHMA Warfarin Sodium (Coumadin) 2.5 mg PO SuMoWeThFr@1700 [facility] Warfarin Sodium (Coumadin) 2.5 mg PO SuMoWeThFr@1700 [facility] Last Admin: 07/19/20 17:35 Dose: Not Given Documented by: SUSHMA Consultations Consultation #1: Patient staffed with Dr. Vera discussed test, test results, and plan of care. Vital Signs Vital signs: Vital Signs - 8 hr 07/18/20 16:40 07/18/20 17:13 07/18/20 17:30 Temperature 98.3 F Pulse Rate 86 91 H 80 Respiratory Rate 18 16 Blood Pressure 186/86 H Pulse Oximetry 96 96 98 <Nestor Vera MD - Last Filed: 07/24/20 07:34> Orders Ordered: Discontinued Medications Acetaminophen (Tylenol) 650 mg PO Q6HR PRN PRN Reason: Fever/Mild Pain (1-3) Atorvastatin Calcium (Lipitor) 10 mg PO BEDTIME [facility] Atorvastatin Calcium (Lipitor) 40 mg PO BEDTIME [facility] Last Admin: 07/18/20 21:35 Dose: 40 mg Documented by: SUSHMA Finasteride (Proscar) 5 mg PO Q48H [facility] Last Admin: 07/18/20 22:10 Dose: Not Given Documented by: SUSHMA Finasteride (Proscar) 5 mg PO Q48H [facility] Sodium Chloride (Normal Saline 0.9%) 1,000 mls @ 150 mls/hr IV CONT [facility] Last Admin: 07/19/20 01:06 Dose: 150 mls/hr Documented by: Infusion: 07/19/20 01:06 Dose: 150 mls/hr Documented by: Infusion: 07/18/20 21:29 Dose: 150 mls/hr Documented by: Infusion: 07/18/20 18:45 Dose: 0 mls/hr Documented by: Admin: 07/18/20 17:33 Dose: 150 mls/hr Documented by: VIOLETA Metoprolol Succinate (Toprol Xl) 100 mg PO DAILY [facility] Last Admin: 07/19/20 08:22 Dose: 100 mg Documented by: Admin: 07/18/20 21:35 Dose: 100 mg Documented by: SUSHMA Naloxone HCl (Narcan) 0.2 mg IV Q2MIN PRN PRN Reason: Opiate Reversal Ondansetron HCl (Zofran) 4 mg IV Q8HR PRN PRN Reason: Nausea And Vomiting Tamsulosin HCl (Flomax) 0.4 mg PO BEDTIME [facility] Last Admin: 07/18/20 21:36 Dose: 0.4 mg Documented by: SUSHMA Warfarin Sodium (Coumadin) 5 mg PO TuSa@17 [facility] Warfarin Sodium (Coumadin) 2.5 mg PO SuMoWeThFr@1700 [facility] Warfarin Sodium (Coumadin) 2.5 mg PO SuMoWeThFr@1700 REN Warfarin Sodium (Coumadin) 5 mg PO TuSa@17 [facility] Last Admin: 07/18/20 22:09 Dose: 5 mg Documented by: SUSHMA Warfarin Sodium (Coumadin) 2.5 mg PO SuMoWeThFr@1700 [facility] Warfarin Sodium (Coumadin) 2.5 mg PO SuMoWeThFr@1700 [facility] Last Admin: 07/19/20 17:35 Dose: Not Given Documented by: SUSHMA Vital Signs Vital signs: Vital Signs - 8 hr 07/18/20 16:40 07/18/20 17:13 07/18/20 17:30 Temperature 98.3 F Pulse Rate 86 91 H 80 Respiratory Rate 18 16 Blood Pressure 186/86 H Pulse Oximetry 96 96 98 MDM - Neuro Symptoms/Deficit <Penny SAHRA Solorzano - Last Filed: 07/18/20 19:01> Medical Records Attestation: I reviewed the patient's medical records. Lab Data Attestation: I reviewed the patient's lab results. Result diagrams: 07/19/20 05:15 07/19/20 05:15 Labs: Lab Results 07/18/20 07/18/20 07/18/20 Range/Units 16:55 16:55 16:55 WBC 6.8 (4.5-11.0) X10^3/uL RBC 4.61 (4.5-5.9) X10^6/uL Hgb 14.0 (13.5-17.5) g/dL Hct 41.7 (41-53) % MCV 90.4 (80-100) fL MCH 30.4 (26-34) PG MCHC 33.7 (30-36) % RDW 14.1 (11.6-14.8) % Plt Count 293 (150-400) X10^3/uL Neut % (Auto) 67.3 (50-75) % Lymph % (Auto) 17.1 L (25-40) % [place] % (Auto) 11.8 (3-14) % Eos % (Auto) 3.0 (2-4) % Baso % (Auto) 0.8 (0-2) % Neut # (Auto) 4600 (1545-3304) /uL Lymph # (Auto) 1200 (7757-4726) /uL [place] # (Auto) 800 (0-900) /uL Eos # (Auto) 200 (0-450) /uL Baso # (Auto) 100 (0-100) /uL PT 25.1 H (10.1-12.7) SECONDS INR 2.2 H (0.9-1.3) APTT 45 H (26.4-36.2) SECONDS Sodium 135 L (137-145) mmol/L Potassium 4.1 (3.4-5.1) mmol/L Chloride 103 (98-107) mmol/L Carbon Dioxide 26 (22-32) mmol/L BUN 19 (9-20) mg/dL Creatinine 1.08 (0.66-1.25) mg/dL Estimated GFR > 60.0 (>60) mL/min BUN/Creatinine Ratio 17.6 (6-22) Glucose 100 (80-110) mg/dL Hemoglobin A1c (4.0-6.0) % Calcium 8.6 (8.4-10.2) mg/dL Total Bilirubin 1.2 (0.2-1.3) mg/dL AST 30 (17-59) IU/L ALT 24 (<50) IU/L Alkaline Phosphatase 104 (38-126) U/L Total Creatine Kinase 65 (55-170) U/L CK-MB (CK-2) TNP CK-MB (CK-2) Rel Index TNP Troponin I < 0.012 (0.01-0.034) ng/mL Total Protein 6.6 (6.3-8.2) g/dL Albumin 3.7 (3.5-5.0) g/dL Globulin 2.9 (1.7-4.1) g/dL Albumin/Globulin Ratio 1.3 (1.0-2.8) Urine RBC (0-5/HPF) Urine WBC (0-5/HPF) Ur Squamous Epith Cells (0-5/HPF) Urine Bacteria (None) Ur Culture Indicated? U Opiates 300ng/mL cut (Negative) Ur Oxycodone Screen (Negative) Urine Methadone Screen (Negative) Ur Barbiturates Screen (Negative) U Tricyclic Antidepress (Negative) Ur Phencyclidine Scrn (Negative) Ur Amphetamines Screen (Negative) U Methamphetamines Scrn (Negative) Ur MDMA Scrn (Ecstasy) (Negative) U Benzodiazepines Scrn (Negative) Urine Cocaine Screen (Negative) U Marijuana (THC) Screen (Negative) 07/18/20 07/18/20 07/18/20 Range/Units 16:55 17:15 17:15 WBC (4.5-11.0) X10^3/uL RBC (4.5-5.9) X10^6/uL Hgb (13.5-17.5) g/dL Hct (41-53) % MCV (80-100) fL MCH (26-34) PG MCHC (30-36) % RDW (11.6-14.8) % Plt Count (150-400) X10^3/uL Neut % (Auto) (50-75) % Lymph % (Auto) (25-40) % [place] % (Auto) (3-14) % Eos % (Auto) (2-4) % Baso % (Auto) (0-2) % Neut # (Auto) (0423-2943) /uL Lymph # (Auto) (0132-1543) /uL [place] # (Auto) (0-900) /uL Eos # (Auto) (0-450) /uL Baso # (Auto) (0-100) /uL PT (10.1-12.7) SECONDS INR (0.9-1.3) APTT (26.4-36.2) SECONDS Sodium (137-145) mmol/L Potassium (3.4-5.1) mmol/L Chloride (98-107) mmol/L Carbon Dioxide (22-32) mmol/L BUN (9-20) mg/dL Creatinine (0.66-1.25) mg/dL Estimated GFR (>60) mL/min BUN/Creatinine Ratio (6-22) Glucose (80-110) mg/dL Hemoglobin A1c 5.9 (4.0-6.0) % Calcium (8.4-10.2) mg/dL Total Bilirubin (0.2-1.3) mg/dL AST (17-59) IU/L ALT (<50) IU/L Alkaline Phosphatase (38-126) U/L Total Creatine Kinase (55-170) U/L CK-MB (CK-2) CK-MB (CK-2) Rel Index Troponin I (0.01-0.034) ng/mL Total Protein (6.3-8.2) g/dL Albumin (3.5-5.0) g/dL Globulin (1.7-4.1) g/dL Albumin/Globulin Ratio (1.0-2.8) Urine RBC 1-5/hpf (0-5/HPF) Urine WBC 1-5/hpf (0-5/HPF) Ur Squamous Epith Cells 1-5 /hpf (0-5/HPF) Urine Bacteria Occasional (0-1) (None) Ur Culture Indicated? Specimen cultured U Opiates 300ng/mL cut Negative (Negative) Ur Oxycodone Screen Negative (Negative) Urine Methadone Screen Negative (Negative) Ur Barbiturates Screen Negative (Negative) U Tricyclic Antidepress Negative (Negative) Ur Phencyclidine Scrn Negative (Negative) Ur Amphetamines Screen Negative (Negative) U Methamphetamines Scrn Negative (Negative) Ur MDMA Scrn (Ecstasy) Negative (Negative) U Benzodiazepines Scrn Negative (Negative) Urine Cocaine Screen Negative (Negative) U Marijuana (THC) Screen Negative (Negative) Point of Care Testing Glucose POC 96 Urine Dip Bedside Urine Glucose Negative Bedside Urine Bilirubin - Negative Bedside Urine Ketone - Negative Urine Specific [place] 1.010 Bedside Urine Occult Blood - Negative Bedside Urine pH 6 Bedside Urine Protein - Negative Bedside Urine Urobilinogen - Negative Bedside Urine Nitrite - Negative Bedside Urine Leukocytes + [address] scan - head: Radiologist's Impression: [address] [address] [address] Scan Report Signed Patient: Nestor Mercedes CMR#: [id number] : 8Acct:[id number] Age/Sex: 80 / MDate of Service: 07/18/20 Loc: ED Accession Number: [id number] Procedure: CT Stroke Ordering Provider: Penny Solorzano PROCEDURE: CT STROKE INDICATIONS: L arm weakness TECHNIQUE: Noncontrast 4.5 mm thick angled axial sections acquired from the foramen magnum to the vertex, with coronal reformats. For radiation dose reduction, the following was used: automated exposure control, adjustment of mA and/or kV according to patient size. COMPARISON: [facility], CT, CT ANGIO HEAD AND NECK, 06/13/2020, 18:59. [facility], CT, CT HEAD/BRAIN WO CON, 06/13/2020, 18:04. [facility], CT, CT ANGIO HEAD AND NECK, 04/11/2020, 11:23. [facility], CT, CT HEAD/BRAIN WO CON, 04/11/2020, 8:40. [facility], CT, CT STROKE, 02/23/2020, 19:29. FINDINGS: Image quality: Excellent. CSF spaces: Basal cisterns are patent. No extra-axial fluid collections. The ventricles are symmetric in size and shape. Brain: No intracranial bleeds or masses. There is cerebral volume loss for age, with resultant ventricular and sulcal prominence. There are periventricular and deep white matter chronic small vessel ischemic changes. There is intracranial internal carotid artery atherosclerosis. Skull and face: Calvarium and visualized facial bones appear intact, without suspicious lesions. Sinuses: Visualized sinuses and mastoids are clear. IMPRESSION: No acute intracranial hemorrhage is seen. No acute intracranial process is seen. If there is strong clinical suspicion for an acute stroke, please consider an MRI for further evaluation, as it is more sensitive (assuming that there is no contraindication to MRI). Note: Case discussed by telephone with SAHRA Frankel at 3:57 p.m. [place] time on July 18, 2020. This study fulfills neurological imaging criteria for inclusion or exclusion of acute stroke therapies based on available published neurological guidelines. Dictated by: Rafal Jackson M.D. on 07/18/2020 at 15:56 Approved by: Rafal Jackson M.D. on 07/18/2020 at 15:59 CTA: Radiologist's Impression: [address] [address] [address] Scan Report Signed Patient: Nestor Mercedes CMR#: [id number] : 8Acct:[id number] Age/Sex: 80 / MDate of Service: 07/18/20 Loc: ED Accession Number: [id number] Procedure: CT angio head and neck Ordering Provider: Penny Solorzano PROCEDURE: CT ANGIO HEAD AND NECK INDICATIONS: L arm weakness TECHNIQUE: Pre-contrast 4.5 mm thick sections acquired from the foramen magnum to the vertex. After the administration of intravenous contrast, 1 mm thick sections acquired from the aortic arch through the [place]. Post-contrast 4.5 mm thick sections then re-acquired from the foramen magnum to the vertex. 3-dimensional dqxdqrf-dmeholeuf-odxjecizqf (MIP) and/or volume rendering reformats were acquired of the central intracranial vasculature and neck separately. COMPARISON: [facility], CT, CT STROKE, 07/18/2020, 16:47. [facility], CT, CT HEAD/BRAIN WO CON, 06/13/2020, 18:04. [facility], CR, XR CHEST 1V, 06/13/2020, 16:57. [facility], CT, CT ANGIO HEAD AND NECK, 04/11/2020, 11:23. [facility], CT, CT HEAD/BRAIN WO CON, 04/11/2020, 8:40. [facility], CT, CT STROKE, 02/23/2020, 19:29. [facility], CT, CT ANGIO HEAD AND NECK, 02/23/2020, 19:29. [facility], CT, CT HEAD/BRAIN WO CON, 10/16/2019, 1:50. [facility], CT, CT ANGIO HEAD AND NECK, 06/13/2020, 18:59. FINDINGS: Image quality: Excellent. BRAIN: CSF spaces: Ventricles are normal in size and shape. Basal cisterns are patent. No extra-axial fluid collections. Brain: No midline shift. No intracranial bleeds or masses. Duenas-white matter interface appears intact. Skull and face: Calvarium and facial bones appear intact, without suspicious lesions. Orbits appear normal. Sinuses: Focal moderate mucosal thickening is seen within the sphenoid sinuses. Mild mucosal thickening is seen elsewhere within the paranasal sinuses. No abnormal fluid is seen within the mastoid air cells. HEAD CT ANGIOGRAPHY: Anterior circulation: Intracranial internal carotid arteries demonstrate generalized atherosclerotic irregularity and calcification. There is 50-60% narrowing on the right side and 40-50% narrowing on the left. The flow within the paired anterior cerebral arteries is normal and symmetric. The flow within the middle cerebral arteries is normal and symmetric. The anterior communicating artery is seen. No aneurysms are seen. Posterior circulation: Visualized portions of the vertebral arteries demonstrate normal caliber, and join to form a normal appearing basilar artery. Flow within the posterior cerebral arteries is normal and symmetric. No aneurysms are seen. NECK CT ANGIOGRAPHY: Carotid system: The great vessels demonstrate a conventional anatomy as they arise from the aortic arch. The origins of the common carotid arteries appear patent. The common carotid arteries demonstrate normal caliber and courses. The bifurcation regions demonstrate atherosclerotic irregularity, without a hemodynamically significant stenosis seen involving the proximal internal carotid arteries. Approximately 20% stenosis can be seen involving each proximal internal carotid artery. The more distal internal carotid arteries are unremarkable. Posterior circulation: The origins of the vertebral arteries both appear widely patent. The more superior extracranial portions of both vertebral arteries also demonstrate normal courses and calibers. They join to form a normal appearing basilar artery. Soft tissues: Visualized neck soft tissues demonstrate no suspicious abnormalities. Emphysematous changes are seen at the lung apices. Bones: No suspicious bony lesions. Visualized cervical spine appears normally aligned. Relatively prominent cervical spine degenerative changes are seen, with at least moderate disc space narrowing seen at each level. IMPRESSION: Generalized calcification and irregularity can be seen involving the intracranial internal carotid arteries, with 50-60% narrowing on the right and 40-50% narrowing on the left. No additional intracranial arterial stenosis is seen. Within the arteries of the neck, no hemodynamically significant stenosis can be seen. Atherosclerotic calcification and irregularity can be seen involving the carotid bifurcations, with approximately 20% narrowing seen on each side. Paranasal sinus disease is seen, which is most prominent within the sphenoid sinuses. Cervical spine degenerative change is seen. Any quantitative measurements of stenosis were performed using NASCET criteria. Dictated by: Rafal Jackson M.D. on 07/18/2020 at 16:15 Approved by: Rafal Jackson M.D. on 07/18/2020 at 16:19 ECG Data Interpretation: 1713: AFib, rate 70, QTC 395. No ST elevation or ST depression. T-wave inversion in V1 and lead III noted. EKG also viewed by Dr. Vera per protocol. MDM Narrative Medical decision making narrative: 80yo male with a history of hyperlipidemia and AFib currently on warfarin, presents emergency department for left arm weakness and numbness and difficulty speaking. Initially code stroke was called, CT and CTA negative for any major occlusived vessels or bleeding. Telestroke consult, patient is not a candidate for treatment due to resolving symptoms, low NIH score, and patient is on Coumadin. Discussed with patient that admission for stroke workup is advised. Patient consented. No concerns for other it acute etiology such infection as patient is hemodynamically stable and labs are non-remarkable. Patient has resolving symptoms, NIH score of 0 upon re-evaluation. Patient was admitted to Dr. Cain for further workup and evaluation. <Nestor Vera MD - Last Filed: 07/24/20 07:34> Lab Data Labs: Lab Results 07/18/20 07/18/20 07/18/20 Range/Units 16:55 16:55 16:55 WBC 6.8 (4.5-11.0) X10^3/uL RBC 4.61 (4.5-5.9) X10^6/uL Hgb 14.0 (13.5-17.5) g/dL Hct 41.7 (41-53) % MCV 90.4 (80-100) fL MCH 30.4 (26-34) PG MCHC 33.7 (30-36) % RDW 14.1 (11.6-14.8) % Plt Count 293 (150-400) X10^3/uL Neut % (Auto) 67.3 (50-75) % Lymph % (Auto) 17.1 L (25-40) % [place] % (Auto) 11.8 (3-14) % Eos % (Auto) 3.0 (2-4) % Baso % (Auto) 0.8 (0-2) % Neut # (Auto) 4600 (0356-9811) /uL Lymph # (Auto) 1200 (3212-7705) /uL [place] # (Auto) 800 (0-900) /uL Eos # (Auto) 200 (0-450) /uL Baso # (Auto) 100 (0-100) /uL PT 25.1 H (10.1-12.7) SECONDS INR 2.2 H (0.9-1.3) APTT 45 H (26.4-36.2) SECONDS Sodium 135 L (137-145) mmol/L Potassium 4.1 (3.4-5.1) mmol/L Chloride 103 (98-107) mmol/L Carbon Dioxide 26 (22-32) mmol/L BUN 19 (9-20) mg/dL Creatinine 1.08 (0.66-1.25) mg/dL Estimated GFR > 60.0 (>60) mL/min BUN/Creatinine Ratio 17.6 (6-22) Glucose 100 (80-110) mg/dL Hemoglobin A1c (4.0-6.0) % Calcium 8.6 (8.4-10.2) mg/dL Total Bilirubin 1.2 (0.2-1.3) mg/dL AST 30 (17-59) IU/L ALT 24 (<50) IU/L Alkaline Phosphatase 104 (38-126) U/L Total Creatine Kinase 65 (55-170) U/L CK-MB (CK-2) TNP CK-MB (CK-2) Rel Index TNP Troponin I < 0.012 (0.01-0.034) ng/mL Total Protein 6.6 (6.3-8.2) g/dL Albumin 3.7 (3.5-5.0) g/dL Globulin 2.9 (1.7-4.1) g/dL Albumin/Globulin Ratio 1.3 (1.0-2.8) Urine RBC (0-5/HPF) Urine WBC (0-5/HPF) Ur Squamous Epith Cells (0-5/HPF) Urine Bacteria (None) Ur Culture Indicated? U Opiates 300ng/mL cut (Negative) Ur Oxycodone Screen (Negative) Urine Methadone Screen (Negative) Ur Barbiturates Screen (Negative) U Tricyclic Antidepress (Negative) Ur Phencyclidine Scrn (Negative) Ur Amphetamines Screen (Negative) U Methamphetamines Scrn (Negative) Ur MDMA Scrn (Ecstasy) (Negative) U Benzodiazepines Scrn (Negative) Urine Cocaine Screen (Negative) U Marijuana (THC) Screen (Negative) 07/18/20 07/18/20 07/18/20 Range/Units 16:55 17:15 17:15 WBC (4.5-11.0) X10^3/uL RBC (4.5-5.9) X10^6/uL Hgb (13.5-17.5) g/dL Hct (41-53) % MCV (80-100) fL MCH (26-34) PG MCHC (30-36) % RDW (11.6-14.8) % Plt Count (150-400) X10^3/uL Neut % (Auto) (50-75) % Lymph % (Auto) (25-40) % [place] % (Auto) (3-14) % Eos % (Auto) (2-4) % Baso % (Auto) (0-2) % Neut # (Auto) (5032-8867) /uL Lymph # (Auto) (9113-3175) /uL [place] # (Auto) (0-900) /uL Eos # (Auto) (0-450) /uL Baso # (Auto) (0-100) /uL PT (10.1-12.7) SECONDS INR (0.9-1.3) APTT (26.4-36.2) SECONDS Sodium (137-145) mmol/L Potassium (3.4-5.1) mmol/L Chloride (98-107) mmol/L Carbon Dioxide (22-32) mmol/L BUN (9-20) mg/dL Creatinine (0.66-1.25) mg/dL Estimated GFR (>60) mL/min BUN/Creatinine Ratio (6-22) Glucose (80-110) mg/dL Hemoglobin A1c 5.9 (4.0-6.0) % Calcium (8.4-10.2) mg/dL Total Bilirubin (0.2-1.3) mg/dL AST (17-59) IU/L ALT (<50) IU/L Alkaline Phosphatase (38-126) U/L Total Creatine Kinase (55-170) U/L CK-MB (CK-2) CK-MB (CK-2) Rel Index Troponin I (0.01-0.034) ng/mL Total Protein (6.3-8.2) g/dL Albumin (3.5-5.0) g/dL Globulin (1.7-4.1) g/dL Albumin/Globulin Ratio (1.0-2.8) Urine RBC 1-5/hpf (0-5/HPF) Urine WBC 1-5/hpf (0-5/HPF) Ur Squamous Epith Cells 1-5 /hpf (0-5/HPF) Urine Bacteria Occasional (0-1) (None) Ur Culture Indicated? Specimen cultured U Opiates 300ng/mL cut Negative (Negative) Ur Oxycodone Screen Negative (Negative) Urine Methadone Screen Negative (Negative) Ur Barbiturates Screen Negative (Negative) U Tricyclic Antidepress Negative (Negative) Ur Phencyclidine Scrn Negative (Negative) Ur Amphetamines Screen Negative (Negative) U Methamphetamines Scrn Negative (Negative) Ur MDMA Scrn (Ecstasy) Negative (Negative) U Benzodiazepines Scrn Negative (Negative) Urine Cocaine Screen Negative (Negative) U Marijuana (THC) Screen Negative (Negative) Point of Care Testing Glucose POC 96 Urine Dip Bedside Urine Glucose Negative Bedside Urine Bilirubin - Negative Bedside Urine Ketone - Negative Urine Specific [place] 1.010 Bedside Urine Occult Blood - Negative Bedside Urine pH 6 Bedside Urine Protein - Negative Bedside Urine Urobilinogen - Negative Bedside Urine Nitrite - Negative Bedside Urine Leukocytes + 70 Esterase Discharge Plan Departure Patient Disposition: Admitted as Observation Clinical Impression: Left arm weakness, Dysarthria Discharge Date/Time: 07/18/20 18:48 Instructions: The Mediterranean Diet and Good Health, Heart-Healthy Diet, DI for Transient Ischemic Attack, How to Prevent Falls, Mediterranean Diet May Reduce the Risk of Stroke in People with High Risk o Referrals: Oleksandr Pinto DO [Primary Care Provider] - 1 Week Admit Date/Time: 07/18/20 17:45 Admit Provider: Sofi Cain <Nestor Vera MD - Last Filed: 07/24/20 07:34> Cosign ED Attending Cosignature Attestation: I was immediately available in the department for consultation. This documentation has been reviewed and I agree with assessment and plan. Supervised by Nestor Vera MD
[2020-07-18 17:13] VITALS: PULSE 91; O2SAT 96
[2020-07-18 17:22] LABS: Add Manual Diff / Slide Review NO; Basophils Absolute Auto 100 /uL (0-100); Basophils Percent Auto 0.8 % (0-2); Eosinophils Absolute Auto 200 /uL (0-450); Hematocrit 41.7 % (41-53); Lymphocytes Absolute Auto 1200 /uL (1100-4500); Lymphocytes Percent Auto 17.1 % (25-40); Mean Corpuscular HGB Conc 33.7 % (30-36); Mean Corpuscular Hemoglobin 30.4 PG (26-34); Mean Corpuscular Volume 90.4 fL (80-100); Monocytes Absolute Auto 800 /uL (0-900); Monocytes Percent Auto 11.8 % (3-14); Neutrophils Absolute Auto 4600 /uL (1500-7000); Neutrophils Percent Auto 67.3 % (50-75); Platelet Count 293 X10^3/uL (150-400); Red Blood Cell Count 4.61 X10^6/uL (4.5-5.9); Red Cell Distribution Width 14.1 % (11.6-14.8); White Blood Cell Count 6.8 X10^3/uL (4.5-11.0)
[2020-07-18 17:30] VITALS: PULSE 80; RESP 16; O2SAT 98
[2020-07-18 17:30] LABS: INR 2.2 (0.9-1.3); Prothrombin Time 25.1 SECONDS (10.1-12.7)
[2020-07-18 17:33] LABS: PTT Partial Thromboplastin Tim 45 SECONDS (26.4-36.2)
[2020-07-18] MEDS: SODIUM CHLORIDE 0.9% 1,000 ML 150 ML IV (17:33)
[2020-07-18 17:36] LABS: Alanine Aminotransferase 24 IU/L (<50); Albumin 3.7 g/dL (3.5-5.0); Albumin Globulin Ratio 1.3 (1.0-2.8); Alkaline Phosphatase 104 U/L (38-126); Aspartate Aminotransferase 30 IU/L (17-59); BUN Creatinine Ratio 17.6 (6-22); Bilirubin Total 1.2 mg/dL (0.2-1.3); Blood Urea Nitrogen 19 mg/dL (9-20); Calcium 8.6 mg/dL (8.4-10.2); Carbon Dioxide 26 mmol/L (22-32); Chloride 103 mmol/L (98-107); Creatine Kinase 65 U/L (55-170); Estimated Glomerular Filt Rate > 60.0 mL/min (>60); Globulin 2.9 g/dL (1.7-4.1); Glucose 100 mg/dL (80-110); HEMOLYSIS 28 (0-50); Potassium 4.1 mmol/L (3.4-5.1); Sodium 135 mmol/L (137-145); Total Protein 6.6 g/dL (6.3-8.2)
[2020-07-18 17:46] LABS: UR Morphine/Opiate cutoff 300 Negative (Negative); Ur Creatinine Normal (Normal); Ur Specific Gravity Normal (Normal); Urine Amphetamines Negative (Negative); Urine Barbiturates Negative (Negative); Urine Benzodiazepines Negative (Negative); Urine Cocaine Negative (Negative); Urine MDMA Negative (Negative); Urine Methadone Negative (Negative); Urine Methamphetamines Negative (Negative); Urine Oxycodone Negative (Negative); Urine Phencyclidine Negative (Negative); Urine Tetrahydrocannabinol Negative (Negative); Urine Tricyclic Antidepressant Negative (Negative); Urine pH Normal (Normal)
[2020-07-18 17:49] LABS: Troponin I < 0.012 ng/mL (0.01-0.034)
[2020-07-18 18:00] VITALS: PULSE 118; RESP 40; O2SAT 96
[2020-07-18 18:09] LABS: Bacteria Urine Occasional (0-1); Culture Indicated Urine Specimen Cultured; RBC Urine 1-5/HPF (0-5/HPF); Squamous Epithelial Cell Urine 1-5 /HPF (0-5/HPF); WBC Urine 1-5/HPF (0-5/HPF)
[2020-07-18 18:39] LABS: COVID19 -Nasal RAPID Negative (Negative)
[2020-07-18 18:50] VITALS: BP 157/82; PULSE 76; RESP 18; TEMP 36.4; O2SAT 98
[2020-07-18 19:43] VITALS: BMI 23.7
--- NOTE | 2020-07-18 19:59 | PC.ADMIT ---
[id number] [facility] Admission Note: The patient,Nestor Mercedes,80 y/o, was given written information regarding hospital policies, unit procedures and contact persons. Patient's smoking status: Former smoker. pt arrived from ED via stretcher. Oriented to room and call system. Reports his L. hand is no longer numb. Bed alarm placed on. Pt verbalized he will call for needs. Vital Signs - 8 hr 07/18/20 16:40 07/18/20 17:13 07/18/20 17:30 Temperature 98.3 F Pulse Rate 86 91 H 80 Respiratory Rate 18 16 Blood Pressure 186/86 H Pulse Oximetry 96 96 98 07/18/20 18:00 07/18/20 18:50 Temperature 97.5 F L Pulse Rate 118 H 76 Respiratory Rate 40 H 18 Blood Pressure 157/82 H Pulse Oximetry 96 98
--- NOTE | 2020-07-18 20:30 | DI.MRI.S_ITS ---
PROCEDURE: MR STROKE Pre- and post-contrast brain MRI, non-contrast brain MR angiogram, pre- and postcontrast neck MR angiogram INDICATIONS: left hand weakness, ?TIA/CVA TECHNIQUE: Brain: Noncontrast axial T1 spin echo, axial T2 fast spin echo, sagittal and axial FLAIR, coronal T2 fast spin echo, axial gradient echo, axial diffusion and ADC through the brain. After the administration of contrast, axial 3D VIBE of the cranial vasculature and brain. Brain MRA: Non-contrast 3-D time of flight MR angiogram, with multiple gqvdspr-ifbrgaebc-xryjfmxuiz (MIP) reformats performed. Neck MRA: Axial and sagittal TruFISP through the neck. Coronal dynamic MR angiogram during administration of contrast in the arterial and venous phases, with 3-dimenstional xuugbfb-hmyvinrnv-ggevnyreab (MIP) reformats constructed from subtraction images. COMPARISON: [facility], CT, CT ANGIO HEAD AND NECK, 07/18/2020, 16:47. [facility], CT, CT STROKE, 07/18/2020, 16:47. FINDINGS: Image quality: Excellent. BRAIN: CSF spaces: Ventricles are normal in size and shape. Basal cisterns are patent. No extra-axial fluid collections. Brain: No intracranial bleeds or mass effects. Duenas-white matter interface is normal. Diffusion weighted images show no acute ischemic insults. Brainstem appears normal. Brain parenchymal volume loss is seen. Chronic small vessel ischemic change is seen. Normal intravascular flow voids are present. No abnormal intracranial enhancement. Skull and face: Calvarial marrow signal is normal. Orbits appear normal. Note is made of bilateral lens replacements. Sinuses: Focal mucosal thickening is seen involving the left anterior ethmoid air cells. There is relatively prominent opacification seen of the sphenoid sinuses. Mild mucosal thickening is seen elsewhere within the paranasal sinuses. No abnormal fluid is seen within the mastoid air cells. BRAIN MR ANGIOGRAM: Anterior circulation: Intracranial internal carotid arteries are normal in size and enhancement. The flow within the paired anterior cerebral arteries is normal and symmetric. The flow within the middle cerebral arteries is normal and symmetric. The anterior communicating artery is not well seen. No stenoses, occlusions, or aneurysms. Posterior circulation: The visualized portions of the vertebral arteries demonstrate normal caliber, and join to form a normal appearing basilar artery. The flow within the posterior cerebral arteries is normal and symmetric. No stenoses, occlusions, or aneurysms. NECK MR ANGIOGRAM: Carotids: Great vessels demonstrate a conventional anatomy as they arise from the aortic arch. The origins of the common carotid arteries appear patent. The calibers and courses of both common carotid arteries are normal. The bifurcation regions appear normal bilaterally. The internal carotid arteries demonstrate normal course and caliber. Posterior circulation: The origins of the vertebral arteries appear patent. More superior portions of both vertebral arteries demonstrate normal course and caliber, and join to form a normal appearing basilar artery. Miscellaneous: Subclavian arteries appear patent. Pre-contrast images through the neck show no soft tissue abnormalities. IMPRESSION: BRAIN MRI: No findings of acute or subacute infarction can be seen. No masses or abnormal enhancement can be seen. Note is made of age-appropriate brain parenchymal volume loss and chronic small vessel ischemic changes. Paranasal sinus disease is seen. BRAIN MR ANGIOGRAM: No significant intracranial arterial abnormality is seen. NECK MR ANGIOGRAM: Within the arteries of the neck, no hemodynamically significant stenosis can be seen. Dictated by: Rafal Jackson M.D. on 07/19/2020 at 10:10 Approved by: Rafal Jackson M.D. on 07/19/2020 at 10:14
--- NOTE | 2020-07-18 20:44 | PM.HP.1 ---
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 right handed male, at home reading the newspaper, when his left hand dropped and felt numb. Denies recent hx of cervical neck pain, whiplash injury. States has a balance problem and has been doing exercises at the direction of his PCP. Involves rotating his head and neck. He becomes short of breath when bending over or lifting heavy items, has lower anterior pelvic dull pain when heavy lifting. Denies headaches, visual changes, dizziness, chest pain, nausea or vomiting, dysurea, diarrhea or constipation. Note in his chart has a diagnosis of cervical somatic dysfunction. CTA findings were as follows: Generalized calcification and irregularity can be seen involving the intracranial internal carotid arteries, with 50-60% narrowing on the right and 40-50% narrowing on the left. No additional intracranial arterial stenosis is seen. Within the arteries of the neck, no hemodynamically significant stenosis can be seen. Atherosclerotic calcification and irregularity can be seen involving the carotid bifurcations, with approximately 20% narrowing seen on each side. Paranasal sinus disease is seen, which is most prominent within the sphenoid sinuses. Cervical spine degenerative change is seen. Patient is afebrile, blood pressure 157/82, heart rate 76, oxygen saturation 98% on room air, he weighs 81.6 kg with a BMI of 23.7. CBC is generally within normal limits, PT INR is 25.1 and 2.2 respectively. Sodium 135, 1st troponin drawn at 4:55 p.m. was within normal limits, urinalysis met criteria for culture, however the patient is asymptomatic, COVID-19 negative. 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) Cervical somatic dysfunction (Acute) Chest pressure (Acute) Chronic atrial fibrillation (01/02/18) Chronic bilateral low back pain without sciatica (Acute) Cranial somatic dysfunction (Acute) Diplopia (Acute) Essential hypertension (02/16/16) Foot stiffness (Acute) Incomplete emptying of bladder (02/16/16) Low HDL (under 40) (Acute) Orthostatic lightheadedness (Inactive) Pelvic somatic dysfunction (Acute) Pleural effusion (Acute) Segmental and somatic dysfunction of lumbar region (Acute) Segmental and somatic dysfunction of rib cage (Acute) Segmental and somatic dysfunction of sacral region (Acute) Segmental and somatic dysfunction of thoracic region (Acute) Somatic dysfunction of both lower extremities (Acute) Stiff neck (Acute) Vasovagal near syncope (Acute) Vitamin D deficiency (Acute) Surgical History Hx of cholecystectomy (Acute) Status post cholecystectomy Family & Social History Family History Mother CVA (cerebral vascular accident) Father Diabetes mellitus Social History: household members none Prior Living Arrangements House Safety & Behavioral: Feels Safe in Current Yes Environment Tobacco & Substance use: Smoking Status Former smoker quit in 70s alcohol intake former alcohol intake frequency quit in 80s Substance Use Type does not use Meds Home Medications and Allergies Home Medications Medication Instructions Recorded Confirmed Type multivitamin [Multiple Vitamins] 1 tab PO DAILY #0 03/06/13 07/18/20 History atorvastatin [Lipitor] 10 mg PO BEDTIME #0 07/05/16 07/18/20 History cholecalciferol (vitamin D3) 2,000 unit PO DAILY #0 tab 08/03/16 07/18/20 History [Vitamin D3] Iron High Potency 27 mg PO DAILY 04/09/19 07/18/20 History Ocuvite 30unit 5mg 150mg 1 cap PO DAILY 04/09/19 07/18/20 History metoprolol succinate 100 mg PO QAM 04/09/19 07/18/20 History finasteride 5 mg tablet 5 mg PO Q OTHER DAY #90 tab 11/08/19 07/18/20 Rx clobetasol 0.05 % topical ointment 1 applic TOPICAL BID PRN #30 gram 12/10/19 07/18/20 Rx warfarin 5 mg tablet See Rx Instructions .ROUTE 12/25/19 07/18/20 Rx .COMPLEX #90 tab metoprolol succinate [Toprol XL] 25 mg PO BEDTIME 07/18/20 07/18/20 History tamsulosin 0.4 mg PO BEDTIME 07/18/20 07/18/20 History Allergies Allergy/AdvReac Type Severity Reaction Status Date / Time No Known Drug Allergies Allergy Verified 07/18/20 16:44 Review of Systems Review of Systems ROS: Yes All systems reviewed with the patient and are negative except as otherwise documented Exam Vital Signs (past 8 hours): - 07/18/20 16:40 07/18/20 17:13 07/18/20 17:30 Temperature 98.3 F Pulse Rate 86 91 H 80 Respiratory Rate 18 16 Blood Pressure 186/86 H Pulse Oximetry 96 96 98 07/18/20 18:00 07/18/20 18:50 Temperature 97.5 F L Pulse Rate 118 H 76 Respiratory Rate 40 H 18 Blood Pressure 157/82 H Pulse Oximetry 96 98 Oxygen Delivery Method Room Air Oxygen Flow Rate 0 Narrative Exam Narrative: Gen: Alert, oriented, well-developed 80 y.o. male, NAD HEENT: normocephalic, atraumatic, conjunctiva clear, sclera non-icteric, oral mucosa pink and moist Neck: supple, full ROM, no JVD, trachea is midline Resp: Lungs CTA, non-labored breathing CV: RRR, no murmur or rubs Abd: soft, non-tender, normoactive BTs Skin: no lesions or rashes, dry and intact Neuro: Alert and oriented X 4 w/no focal deficits. Speech mild slurring, unknown if this is his baseline. 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 Objective Labs Result Diagrams: 07/18/20 16:55 07/18/20 16:55 Labs: Laboratory Results - last 24 hr 07/18/20 07/18/20 07/18/20 16:55 16:55 16:55 WBC 6.8 RBC 4.61 Hgb 14.0 Hct 41.7 MCV 90.4 MCH 30.4 MCHC 33.7 RDW 14.1 Plt Count 293 Neut % (Auto) 67.3 Lymph % (Auto) 17.1 L [place] % (Auto) 11.8 Eos % (Auto) 3.0 Baso % (Auto) 0.8 Neut # (Auto) 4600 Lymph # (Auto) 1200 [place] # (Auto) 800 Eos # (Auto) 200 Baso # (Auto) 100 PT 25.1 H INR 2.2 H APTT 45 H Sodium 135 L Potassium 4.1 Chloride 103 Carbon Dioxide 26 BUN 19 Creatinine 1.08 Estimated GFR > 60.0 BUN/Creatinine Ratio 17.6 Glucose 100 Calcium 8.6 Total Bilirubin 1.2 AST 30 ALT 24 Alkaline Phosphatase 104 Total Creatine Kinase 65 CK-MB (CK-2) TNP CK-MB (CK-2) Rel Index TNP Troponin I < 0.012 Total Protein 6.6 Albumin 3.7 Globulin 2.9 Albumin/Globulin Ratio 1.3 Urine RBC Urine WBC Ur Squamous Epith Cells Urine Bacteria Ur Culture Indicated? U Opiates 300ng/mL cut Ur Oxycodone Screen Urine Methadone Screen Ur Barbiturates Screen U Tricyclic Antidepress Ur Phencyclidine Scrn Ur Amphetamines Screen U Methamphetamines Scrn Ur MDMA Scrn (Ecstasy) U Benzodiazepines Scrn Urine Cocaine Screen U Marijuana (THC) Screen COVID-19 PCR 07/18/20 07/18/20 07/18/20 17:15 17:15 17:55 WBC RBC Hgb Hct MCV MCH MCHC RDW Plt Count Neut % (Auto) Lymph % (Auto) [place] % (Auto) Eos % (Auto) Baso % (Auto) Neut # (Auto) Lymph # (Auto) [place] # (Auto) Eos # (Auto) Baso # (Auto) PT INR APTT Sodium Potassium Chloride Carbon Dioxide BUN Creatinine Estimated GFR BUN/Creatinine Ratio Glucose Calcium Total Bilirubin AST ALT Alkaline Phosphatase Total Creatine Kinase CK-MB (CK-2) CK-MB (CK-2) Rel Index Troponin I Total Protein Albumin Globulin Albumin/Globulin Ratio Urine RBC 1-5/hpf Urine WBC 1-5/hpf Ur Squamous Epith Cells 1-5 /hpf Urine Bacteria Occasional (0-1) Ur Culture Indicated? Specimen cultured U Opiates 300ng/mL cut Negative Ur Oxycodone Screen Negative Urine Methadone Screen Negative Ur Barbiturates Screen Negative U Tricyclic Antidepress Negative Ur Phencyclidine Scrn Negative Ur Amphetamines Screen Negative U Methamphetamines Scrn Negative Ur MDMA Scrn (Ecstasy) Negative U Benzodiazepines Scrn Negative Urine Cocaine Screen Negative U Marijuana (THC) Screen Negative COVID-19 PCR Negative Assessment & Plan Assessment & Plan narrative: Nestor Mercedes will be admitted for observation and further workup of a suspected TIA. TIA versus CVA rule out acute, present on admission -he will have q.4 hours neuro checks and NIH scoring -PT/OT/speech therapy tomorrow -MRI/A of the head and neck -echocardiogram in the morning -Patient passed a swallow eval in the ED, so will have a heart healty diet Atrial fibrillation, chronic, anticoagulated on warfarin -patient is therapeutic with an INR of 2.2 -Takes warfarin 5 mg on Tuesdays and Saturdays and 2.5 mg on Monday, Monday, Monday, and Monday and will continue this regimen depending on his INR. Essential hypertension, currently not controlled, present on admission -continue home dose of metoprolol succinate 25 mg p.o. bedtime Continue home dose of metoprolol succinate 100 mg p.o. in the morning Hyperlipidemia, chronic -Lipid panel in the am -increased home dose of atorvastatin from 10 mg to 40 mg at bedtime Risk stratification -A1c is 5.9, possibly pre-diabetic, fasting lipid panel in the am. BPH, chronic -Continue home dose of finasteride 5 mg every other day and tamsulosin 0.4 mg po at bedtime VTE prophylaxis: Caprini risk score: 4, moderate, continue warfarin, he is therapeutic Consults: none Patient is observation status as his stay is not likely to exceed 2 midnights. FEN: IV saline lock, heart healthy diet, BMP and magnesium in the am. Dispo: Probable discharge to home Code Status: Full code as discussed with patient
[2020-07-18 21:04] LABS: Hemoglobin A1C% w Est Avg Glu 5.9 % (4.0-6.0)
[2020-07-18] MEDS: ATORVASTATIN 20 MG TABLET 40 MG PO (21:35)
[2020-07-18] MEDS: METOPROLOL ER 50 MG TABLET 100 MG PO (21:35)
[2020-07-18] MEDS: TAMSULOSIN 0.4 MG CAPSULE PO (21:36)
[2020-07-18] MEDS: WARFARIN 5 MG TABLET PO (22:09)
--- NOTE | 2020-07-18 22:41 | PC.NURSE ---
Pt is A and O x 4, VSS. Denies N and dizziness. NIH = 0. Passed speech eval in ER. Eating drinking and voiding. +BTs. HRR, LS clear. Able to sleep.
[2020-07-19 00:34] VITALS: BP 142/76; PULSE 70; RESP 18; TEMP 36; O2SAT 97
[2020-07-19] MEDS: SODIUM CHLORIDE 0.9% 1,000 ML 150 ML IV (01:06)
[2020-07-19 05:24] VITALS: BP 134/70; PULSE 67; RESP 18; TEMP 35.9; O2SAT 97
[2020-07-19 05:35] LABS: Add Manual Diff / Slide Review NO; Basophils Absolute Auto 0 /uL (0-100); Basophils Percent Auto 0.8 % (0-2); Eosinophils Absolute Auto 200 /uL (0-450); Eosinophils Percent Auto 2.9 % (2-4); Hematocrit 38.3 % (41-53); Hemoglobin 12.6 g/dL (13.5-17.5); Lymphocytes Absolute Auto 1300 /uL (1100-4500); Lymphocytes Percent Auto 19.9 % (25-40); Mean Corpuscular HGB Conc 32.9 % (30-36); Mean Corpuscular Hemoglobin 29.9 PG (26-34); Monocytes Absolute Auto 800 /uL (0-900); Monocytes Percent Auto 12.1 % (3-14); Neutrophils Absolute Auto 4200 /uL (1500-7000); Neutrophils Percent Auto 64.3 % (50-75); Platelet Count 248 X10^3/uL (150-400); Red Blood Cell Count 4.21 X10^6/uL (4.5-5.9); Red Cell Distribution Width 14.1 % (11.6-14.8); White Blood Cell Count 6.5 X10^3/uL (4.5-11.0)
[2020-07-19 05:36] LABS: INR 2.5 (0.9-1.3); Prothrombin Time 28.3 SECONDS (10.1-12.7)
[2020-07-19 05:48] LABS: Blood Urea Nitrogen 17 mg/dL (9-20); Calcium 7.8 mg/dL (8.4-10.2); Carbon Dioxide 26 mmol/L (22-32); Chloride 107 mmol/L (98-107); Cholesterol 104 mg/dL (140-199); Estimated Glomerular Filt Rate > 60.0 mL/min (>60); Glucose 86 mg/dL (80-110); HDL Cholesterol 35 mg/dL (40-60); HEMOLYSIS < 15 (0-50); LDL Cholesterol Calculated 49 mg/dL (<100); Magnesium 2.1 mg/dL (1.6-2.3); Potassium 3.9 mmol/L (3.4-5.1); Sodium 134 mmol/L (137-145); Triglycerides 98 mg/dL (35-150)
--- NOTE | 2020-07-19 05:57 | PC.NURSE ---
Assumed care of patient at 0300, patient resting in bed. Patient is A/O x4, 0400 NIH scale completed, Score: 0. Patient denies chest pain, SOB, numbness or tingling in the extremities. Up to restroom for BM, ambulating with SBA, patient is steady. Bilateral IV's noted, WNL, NS@150 infusing in LUE. Patient back to bed, SCD's on bilaterally. Call light in reach, bed alarm on, denies further needs at this time.
[2020-07-19 08:04] VITALS: BP 138/75; PULSE 60; RESP 16; TEMP 36.4; O2SAT 96
[2020-07-19 08:22] VITALS: BP 138/75; PULSE 61
[2020-07-19] MEDS: METOPROLOL ER 50 MG TABLET 100 MG PO (08:22)
--- NOTE | 2020-07-19 10:35 | DI.ECHO.S_ITS ---
Echocardiogram Report + + :Name: DOMINIC AGUILAR Study Date: 07/19/2020 Height: 73 in : :Hospital Weight: 180 lb : : Gender: Male BSA: 2.1 m2 : :: 1940 Age: 80 yrs BP: 142/76 mmHg: :Reason For Study: TIA/CVA : :Ordering Physician: : :JASON RICHARDS Performed By: Adelina Guajardo : :Referring: ERIKA RYAN : + + Interpretation Summary The left ventricle is normal in size and wall thickness. The ejection fraction is estimated to be 55-60%. There has been no significant change in LV EF since the previous exam. The right ventricle is mildly dilated. Right ventricular systolic function is at the lower limits of normal. There is mild to moderate mitral regurgitation. Compared to the prior echo study, there has been no change in the severity of mitral regurgitation. The aortic valve is heavily calcified. There is moderately reduced leaflet mobility. The peak aortic velocity is 2.21 m/sec. The aortic valve mean gradient is 10.3 mmHg. The calculated aortic valve area is 1.2 cm2. The peak aortic velocity on the previous exam was 1.7-1.9 m/sec. There is mild to moderate aortic stenosis. There is mild to moderate tricuspid regurgitation. Compared to the prior echo exam, there has been no change in TR severity. The right ventricular systolic pressure is estimated to be at least 32 mmHg based on an estimated right atrial pressure of 3 mm Hg. Mild atherosclerotic plaque(s) in the aortic arch. Procedure: A two-dimensional transthoracic echocardiogram with color flow and Doppler was performed. The study quality was technically adequate. Comparison is made with the echocardiogram of 04/15/2019. The patient was in atrial fibrillation with heart rates between 65-88 bpm during the exam. Left Ventricle: The left ventricle is normal in size and wall thickness. There is no thrombus. The ejection fraction is estimated to be 55-60%. There has been no significant change since the previous exam. There are no focal wall motion abnormalities. Diastolic function could not be accurately assessed due to atrial fibrillation. Right Ventricle: The right ventricle is mildly dilated. Right ventricular systolic function is at the lower limits of normal. Atria: The left atrium is severely dilated. The left atrium has mildly increased in size since the prior echo exam. The right atrium is moderately dilated. A patent foramen ovale is suspected. Doppler evidence suggests a left to right interatrial shunt. Mitral Valve: There is mild mitral annular calcification. The mitral valve leaflets are mildly calcified. There is mild to moderate mitral regurgitation. Compared to the prior echo study, there has been no change in the severity of mitral regurgitation. Aortic Valve: The aortic valve is trileaflet. The aortic valve is heavily calcified. There is moderately reduced leaflet mobility. There is mild to moderate aortic stenosis. The aortic valve mean gradient is 10.3 mmHg. The peak aortic velocity is 2.21 m/sec. The calculated aortic valve area is 1.2 cm2. The peak aortic velocity on the previous exam was 1.7-1.9 m/sec. There is trace aortic regurgitation. Tricuspid Valve: The tricuspid valve is normal. There is mild to moderate tricuspid regurgitation. The right ventricular systolic pressure is estimated to be at least 32 mmHg based on an estimated right atrial pressure of 3 mm Hg. Compared to the prior echo exam, there has been no change in TR severity. Pulmonic Valve: The pulmonic valve is not well seen, but is grossly normal. There is trace pulmonic regurgitation. Great Vessels: The aortic root is normal size. The ascending aorta could not be visualized. Mild atherosclerotic plaque(s) in the aortic arch. The IVC is of normal diameter and collapses greater than 50% with a sniff. This suggests a low right atrial pressure of 3 mm Hg. Pericardium/ Pleura There is no pericardial effusion. There is no pleural effusion. MMode/2D Measurements & Calculations LVIDd: 3.9 cm LVOT diam: 2.1 cm LVIDs: 3.2 cm Ao root diam: 3.8 cm FS: 16.6 % Ao Arch Diam (Prox Trans): 3.9 cm EPSS: 0.81 cm IVSd: 0.94 cm LVPWd: 0.98 cm LV whitaker. diameter/BSA (cm/m^2): 1.9 LV sys. diameter/BSA (cm/m^2): 1.6 LA A2 area: 37.1 cm2 RA long axis: 6.4 cm LA A4 area: 30.9 cm2 RA area: 22.6 cm2 LA length (vol): 7.2 cm RA vol: 67.3 ml LA vol: 135.6 ml RA : 32.7 ml/m2 LA vol index: 65.9 ml/m2 IVC diam: 1.5 cm RVD1 (basal): 4.2 cm TAPSE: 1.7 cm Doppler Measurements & Calculations Ao V2 max: 221.3 cm/sec LVOT Max Lazaro: 68.4 cm/sec Ao V2 mean: 151.1 cm/sec LV V1 max P.9 mmHg Ao max P.5 mmHg LV V1 VTI: 15.3 cm Ao mean P.3 mmHg CIERRA(I,D): 1.2 cm2 Ao V2 VTI: 45.6 cm CIERRA(V,D): 1.1 cm2 sev ratio: 0.34 CIERRA indexed to BSA (cm^2/m^2): 0.58 MV E max lazaro: 102.5 cm/sec TR max lazaro: 270.1 cm/sec MV A max lazaro: 1.2 cm/sec TR max P.2 mmHg MV E/A: 83.7 PA V2 max: 60.8 cm/sec Med Peak E' Lazaro: 10.3 cm/sec PA V2 mean: 39.7 cm/sec E/E' med: 9.9 PA mean P.74 mmHg Lat Peak E' Lazaro: 10.5 cm/sec PA pr(Accel): 60.2 mmHg E/E' lat: 9.7 E/e' average: 9.8 MV dec time: 0.14 sec SV(LVOT): 54.1 ml Reading Physician:01:33 PM
[2020-07-19 11:35] VITALS: BP 124/76; PULSE 74; RESP 16; TEMP 37; O2SAT 95
--- NOTE | 2020-07-19 12:39 | ST.IPIE ---
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 Automatic Referring Provider Specialty: EM Address: [address] [place] [address], [id number] Email: Sofi Cain DO Admit Provider Physician Attending Provider Specialty: Internal Medicine Address: [address] [place] [address], [id number] Email: [email or web address] Medical History (Last Reviewed 07/18/20 @ 21:26 by SAHRA Valadez) Acute dehydration (Inactive Medical) Atrial fibrillation (Acute Medical) Atrial fibrillation with rapid ventricular response (Acute Medical) Atypical chest pain (Acute Medical) 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) BPPV (benign paroxysmal positional vertigo) (Acute Medical) Bullous pemphigoid (Medical 02/16/16) Cervical somatic dysfunction (Acute Medical) Chest pressure (Acute Medical) Chronic atrial fibrillation (Medical 01/02/18) Chronic bilateral low back pain without sciatica (Acute Medical) Cranial somatic dysfunction (Acute Medical) Diplopia (Acute Medical) Essential hypertension (Medical 02/16/16) Foot stiffness (Acute Medical) Incomplete emptying of bladder (Medical 02/16/16) Low HDL (under 40) (Acute Medical) Orthostatic lightheadedness (Inactive Medical) Pelvic somatic dysfunction (Acute Medical) Pleural effusion (Acute Medical) Segmental and somatic dysfunction of lumbar region (Acute Medical) Segmental and somatic dysfunction of rib cage (Acute Medical) Segmental and somatic dysfunction of sacral region (Acute Medical) Segmental and somatic dysfunction of thoracic region (Acute Medical) Somatic dysfunction of both lower extremities (Acute Medical) Stiff neck (Acute Medical) Vasovagal near syncope (Acute Medical) Vitamin D deficiency (Acute Medical) ST IP Initial Evaluation Report TITLE I INSTRUCTIONAL ASSISTANT Clinical Swallow Evaluation Start: 07/19/20 12:32 Freq: Status: Active Protocol: Document 07/19/20 12:33 MG (Rec: 07/19/20 12:38 MG [id number]) Clinical Swallow Evaluation Session Time Visit Start Date 07/19/20 Visit Start Time 12:20 Visit Stop Time 12:30 Total Visit Minutes 10 Visit Information Visit Number 1 Setting Assessment Location Acute Care Visit Type Note Type Initial evaluation Patient Information Identification Type Name,Wristband History Nestor Mercedes is an 80 y.o. right handed male, at home reading the newspaper, when his left hand dropped and felt numb. Denies recent hx of cervical neck pain, whiplash injury. States has a balance problem and has been doing exercises at the direction of his PCP. Involves rotating his head and neck. He becomes short of breath when bending over or lifting heavy items, has lower anterior pelvic dull pain when heavy lifting. Denies headaches, visual changes, dizziness, chest pain , nausea or vomiting, dysurea, diarrhea or constipation. Note in his chart has a diagnosis of cervical somatic dysfunction. Subjective Observations Pt was sitting upright in a chair next to bedside. Pt was agreeable to TITLE I INSTRUCTIONAL ASSISTANT performing evaluation. Reported by Patient Current Diet Regular,Thin liquids Baseline Feeding Method Independent in self-feeding Objective Assessment Mental Status Alert,Responsive,Cooperative Oral Integrity WFL Dentition Dentures or partials present Lip Function Within normal limits Observation of Lips at Rest Symmetrical Pucker Within normal limits Lip Retraction Within normal limits Alternating Pucker/Lip Retraction Within normal limits Tongue Function Within normal limits Observations of Tongue at Rest Within normal limits Tongue Protrusion Within normal limits Tongue Retraction Within normal limits Tongue Lateralization Within normal limits Jaw Function Within normal limits Observations of Jaw at Rest Within normal limits Jaw Opening Within normal limits Jaw Closing Within normal limits Jaw Lateralization Within normal limits Jaw Protrusion Within normal limits Jaw Retraction Within normal limits Hard/Soft Palate Function Within normal limits Observations of Hard/Soft Palate Within normal limits Gag Reflex Within normal limits Nasality Within normal limits Phonation Within normal limits Comment Formal OME does not indicate any weakness at this time. Food and Liquid Trials Position During Assessment Upright (90 degrees) Liquids Trialed Thin Solids Trialed Regular Administration Type Cup consecutive sips,Straw, Self-feeding Oral Impairment Within functional limits Oral Phase Comments Swallow screening was performed. Pt could masticate food appropriately. No residue in mouth after consumption. Pt's speech appears 100% intelligible as well. Pharyngeal Impairment Within functional limits Pharyngeal Phase Comments No overt s/sx of aspiration noted on any trials of of liquids/solids. Per nurse, pt is toelrating meals. Fatigue/Endurance Endurance WNL Findings Swallowing Function Within functional limits Severity of Swallow Impairment Within functional limits Recommendations Instrumental Assessment No Swallowing Treatment No Recommended Solids Regular Recommended Liquids Thin Medication Recommendations As Tolerated Discharge Recommendations Home Education Patient/Caregiver Education Described results of evaluation,Patient expressed understanding of evaluation, Patient expressed agreement with goals & treatment plans
--- NOTE | 2020-07-19 12:56 | PC.NURSE ---
Day Shift-Pt A&OX4, able to make needs known using call light. NIH score is 0. Pt denies any swallowing issues with breakfast and none noted with this RN. Pt had pills whole with water without difficulty. SBA to BR steady gait. Bed alarm on, pt to MRI at 0920 via wheelchair and back at 1015. Pt aware he is likely discharging home later today.
--- NOTE | 2020-07-19 13:09 | PT.IIE ---
Surgical History (Last Reviewed 07/18/20 @ 21:26 by SAHRA Valadez) Hx of cholecystectomy (Acute) Status post cholecystectomy Medical History (Last Reviewed 07/18/20 @ 21:26 by SAHRA Valadez) Acute dehydration (Inactive) Atrial fibrillation (Acute) Atrial fibrillation with rapid ventricular response (Acute) Atypical chest pain (Acute) 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) BPPV (benign paroxysmal positional vertigo) (Acute) 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) Cervical somatic dysfunction (Acute) Chest pressure (Acute) Chronic atrial fibrillation (01/02/18) Chronic bilateral low back pain without sciatica (Acute) Cranial somatic dysfunction (Acute) Diplopia (Acute) Essential hypertension (02/16/16) Foot stiffness (Acute) Incomplete emptying of bladder (02/16/16) Low HDL (under 40) (Acute) Orthostatic lightheadedness (Inactive) Pelvic somatic dysfunction (Acute) Pleural effusion (Acute) Segmental and somatic dysfunction of lumbar region (Acute) Segmental and somatic dysfunction of rib cage (Acute) Segmental and somatic dysfunction of sacral region (Acute) Segmental and somatic dysfunction of thoracic region (Acute) Somatic dysfunction of both lower extremities (Acute) Stiff neck (Acute) Vasovagal near syncope (Acute) Vitamin D deficiency (Acute) Physical Therapy Inpatient Evaluation/Re-Eval M1 PT/OT-IP Prior Functional Status Start: 07/19/20 08:50 Freq: NEEDED Status: Active Protocol: Document 07/19/20 12:16 AW (Rec: 07/19/20 13:09 AW [id number]) Medical Review Prior Functional Status Medical History Reviewed Yes Diet/Fluid Consistency Regular Communication WNL Mobility and Gait Pt is independent without assistive device and without meaningful limit in terms of distance or time. Activities of Daily Living and IADL's Independent with all ADL's. Pt drives. He also manages his own medications and finances. Prior Functional Level (Other details) Pt reports reduced activity since beginning of COVID19 lockdown with concurrent disturbance in balance. He has not fallen but states he noticed balance disturbance has increased. Social History Household Members none Living Arrangements House Number of Floors (Floors) 3 or More Floors Number of Stairs To Enter/Railing? 4 IFEANYI with unilateral railing at one entrance and 2 IFEANYI with grab bar for support at another entrance. Pt enters on main level with master bedroom, kitchen, bathroom. There is a basement. Upstairs is where the pt's hobby room is located. There are 10 stairs with right rail ascending to the second level. 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 His son works locomotive observer but checks on the pt frequently and assists with cleaning. M2 PT-IP Current Condition Start: 07/19/20 08:50 Freq: NEEDED Status: Active Protocol: Document 07/19/20 12:16 AW (Rec: 07/19/20 13:09 AW [id number]) Physical Therapy Current Condition Current Condition Evaluation Date 07/19/20 Treatment Diagnosis possible TIA; balance disturbance; difficulty in walking M3 PT-IP Subjective Start: 07/19/20 08:50 Freq: NEEDED Status: Active Protocol: Document 07/19/20 12:16 AW (Rec: 07/19/20 13:09 AW [id number]) Subjective Physical Therapy Visit Type Type Initial Evaluation Visit Start Time 11:41 Visit Stop Time 12:02 Total Visit Minutes 21 Physical Therapy Visit Comments Patient Comments Pt is willing to participate with PT. Patient Goals Pt hopes to return home at discharge and ultimately hopes to improve his balance. Therapy Pain Assessment Pain When Pain Assessed During Mobility Pain Present Pain Present Denied Pain M4 PT-IP Mobility and Gait Start: 07/19/20 08:50 Freq: NEEDED Status: Active Protocol: Document 07/19/20 12:16 AW (Rec: 07/19/20 13:09 AW [id number]) PT-Bed Mobility Assessment Supine to Sit Supine to Sit Independent Scooting Scooting to Edge of Bed Independent Scooting Up and Down in Bed Independent PT-Transfer Assessment Sit to and From Stand Sit to and from Stand Standby Assistance,1 Person Assistance,Use of Upper Extremities Equipment Transfer Assistive Device Gait Belt Transfers Transfer Destination Chair,Toilet Transfer Ability Level of Assist Independent Comments Mobility Comments Pt was lying in bed as PT arrived. He completed all bed mobility independently and was able to sit EOB with and without UE support during assessment. He stood from the bed SBA due to mild initial unsteadiness and stepped away from the bed for static balance assessment. He then ambulated in the [place] SBA with path deviation observed and lateral LOB x 2 from which he was able to recover independently. On return to the room, pt requested to use the toilet. He transferred to and from the toilet independently and then transferred to the [facility]. Pt was positioned in the chair with call light and all needs in reach. Pt verbalized agreement to call for all mobility needs. Gait Assessment Gait Gait Assistance Required: Standby Assistance Distance (Feet) 150 Assistive Devices Assistive Device Gait Belt Gait Deviations General Gait Pattern Antalgic,Decreased Feet Clearance,Flexed Trunk,Lateral Trunk Lean,Step-to Gait Factors Limiting Gait Function Factors Limiting Gait Function Decreased Activity Tolerance, Poor Balance,Poor Safety Awareness Comments Gait Comments See mobility comments for details. Stair Climbing Assessment Evaluation Level of Assist On Stairs Independent Devices Stair Climbing Assistive Devices Right Railing Technique/Endurance Stair Climbing Direction Ascend and Descend Stair Climbing Technique Step Over Step Number of Steps Climbed 3 Query Text: Stair Climbing Set # Repetitions (reps) 2 Comments Stair Climbing Comments Pt was modified independent with unilateral rail. PT-Balance Assessment Sitting Balance and Reactions Static Sitting Balance Ability Normal Dynamic Sitting Balance Ability Normal Standing Balance and Reactions Static Standing Balance Ability Good Dynamic Standing Balance Ability Fair Balance Tests Romberg WNL Tandem Standing unable M5 PT-IP Objective Assessments Start: 07/19/20 08:50 Freq: NEEDED Status: Active Protocol: Document 07/19/20 12:16 AW (Rec: 07/19/20 13:09 AW [id number]) Orientation Orientation/Cognition Level of Alertness Alert Orientation Name,Day of Week,Place, Situation Language Function Ability No Deficits Noted Safety Awareness Decreased Safety Awareness Memory Description No Deficits Noted Gross Range of Motion Upper Extremity ROM Assessment Within Functional Limits Lower Extremity ROM Assessment Within Functional Limits Strength Upper Extremity Strength Assessment Within Functional Limits Lower Extremity Strength Assessment Within Functional Limits Comments Strength Comments BUE grossly 4+/5. BLE grossly 5/5 except hips 4/5. Coordination Assessment Gross Coordination Gross Coordination WNL Assessment Finger to Nose Test Normal Performance Pronation/Supination Test Normal Performance Sensation Assessment Sensation Gross Sensation WNL Comments Sensation Comments Pt reports LUE weakness and numbness had resolved within 1 /2 hour of onset. Muscle Tone Muscle Tone WNL Yes Comments Muscle Tone Comments Negative ankle clonus bilaterally. Other Assessments Other Other Assessments Occulomotor exam was grossly normal. No resting or gaze- evoked nystagmus. Cranial nerves grossly intact on exam. M6 PT-IP Treatment Start: 07/19/20 08:50 Freq: NEEDED Status: Active Protocol: Document 07/19/20 12:16 AW (Rec: 07/19/20 13:09 AW [id number]) Physical Therapy Treatment Education Education Provided Safety Other Treatments Other Treatment Performed Provided education on role of PT, balance systems integration, and safety in the home. M7 PT-IP Assessment and Plan Start: 07/19/20 08:50 Freq: NEEDED Status: Active Protocol: Document 07/19/20 12:16 AW (Rec: 07/19/20 13:09 AW [id number]) PT Summary Assessment and Plan Potential Status of Condition at Evaluation Stable Summary Impairments Balance,Gait Assessment Summary Oniel is an 80 yo man seen for PT evaluation after being admitted wtih LUE weakness and numbness which resolved within 1/2 hour. Brain MRI is negative for acute process. Pt is independent at baseline but reports increasing balance disturbance over the last several months. On evaluation, he is independent with most mobilities but requires SBA for ambulation due to unsteady gait with marked path deviation. Pt denies history of falls. Gait is assessed as at or near baseline. No acute PT needs were identified but pt would definitely benefit from outpatient PT to address balance and gait deficits. Frequency of Treatment Frequency Of Treatment Discharge Recommendations To Nursing Amount of Assist Needed Standby Assistance Discharge Recommendations PT Discharge Recommendations Home with Assistance, Outpatient PT Transportation Needs at Discharge Private Vehicle
[2020-07-19 15:56] VITALS: BP 139/80; PULSE 72; RESP 18; TEMP 36.2; O2SAT 97
--- NOTE | 2020-07-19 16:38 | CM.DANOTE ---
Discharge Planning/Care Management DCP: assessment: case received and met this morning with pt during Team Bedside Rounds. Pt is an 80 year old male who admitted to care of hospitalist team. PCP: Dr. Pinto. Dr. Cain stated that pt had likely had a TIA as he states his symtoms had resolved. PT was ordered as well as MRI and ECHO and Dr. Cain stated she expected pt would be fine to dc home later today. 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 A check in shows he is still waiting to be updated on his tests. Advanced directive, confirm from FAMILY Start: 07/18/20 19:51 Freq: Q24H Status: Active Protocol: Document 07/18/20 19:51 (Rec: 07/18/20 22:05 [id number]) Advance Directive, confirm on record Time 22:04 Person contacted patient Copy received No CM Discharge Assessment Start: 07/19/20 16:36 Freq: Status: Active Protocol: Document 07/19/20 16:36 ITV (Rec: 07/19/20 16:38 ITV [id number]) Discharge Planning Assessment Advance Directives? Yes History Provided By Patient Prior Living Arrangements House Household Members none Comment son Lobo lives in pt's property in a cabin and spends alot of time with pt in the main house (where the computer is, says pt) Independent with ADL's Yes Is patient alert and oriented? Yes
--- NOTE | 2020-07-19 16:53 | PM.DS.1 ---
History of Present Illness History of Present Illness Date Patient Seen: 07/18/20 Chief complaint: left arm numb, cant mottler machine feeder anything Narrative: Written by Pau BOCANEGRA: Nestor Mercedes is an 80 y.o. right handed male, at home reading the newspaper, when his left hand dropped and felt numb. Denies recent hx of cervical neck pain, whiplash injury. States has a balance problem and has been doing exercises at the direction of his PCP. Involves rotating his head and neck. He becomes short of breath when bending over or lifting heavy items, has lower anterior pelvic dull pain when heavy lifting. Denies headaches, visual changes, dizziness, chest pain, nausea or vomiting, dysurea, diarrhea or constipation. Note in his chart has a diagnosis of cervical somatic dysfunction. CTA findings were as follows: Generalized calcification and irregularity can be seen involving the intracranial internal carotid arteries, with 50-60% narrowing on the right and 40-50% narrowing on the left. No additional intracranial arterial stenosis is seen. Within the arteries of the neck, no hemodynamically significant stenosis can be seen. Atherosclerotic calcification and irregularity can be seen involving the carotid bifurcations, with approximately 20% narrowing seen on each side. Paranasal sinus disease is seen, which is most prominent within the sphenoid sinuses. Cervical spine degenerative change is seen. Patient is afebrile, blood pressure 157/82, heart rate 76, oxygen saturation 98% on room air, he weighs 81.6 kg with a BMI of 23.7. CBC is generally within normal limits, PT INR is 25.1 and 2.2 respectively. Sodium 135, 1st troponin drawn at 4:55 p.m. was within normal limits, urinalysis met criteria for culture, however the patient is asymptomatic, COVID-19 negative. Discharge Providers Provider Date of admission: 07/18/20 17:45 Discharge Date: 07/19/20 Primary care physician: Oleksandr Pinto DO Consults: 07/18/20 20:33 Consult to Occupational Therapy Evaluate & Treat Comment: Physician Instructions: Evaluate and treat Consult to Physical Therapy Evaluate & Treat Comment: Physician Instructions: Evaluate and Treat Consult to Speech Therapy Evaluate & Treat Comment: Physician Instructions: Evaluate and treat Discharge provider: Sofi Cain DO Summary Hospital Course Hospital Course: Nestor Mercedes is an 80-year-old male with a past medical history significant for hypertension, hyperlipidemia, chronic atrial fibrillation on warfarin who presented to the ED for sudden left arm weakness and numbness and dysarthria. 1. Acute TIA, present on admission. Resolved. -Patient presented with left arm weakness and numbness and dysarthria. -NIH score 1 for dysarthria/slurring of speech. Repeat NIH 0. Continued frequent neurological checks. -CT brain without contrast and CTA head and neck did not demonstrate any acute intracranial hemorrhage with generalized calcification and irregularity can be seen involving the intracranial internal carotid arteries, with 50-60% narrowing on the right and 40-50% narrowing on the left. No additional intracranial arterial stenosis is seen. Atherosclerotic calcification and irregularity can be seen involving the carotid bifurcations, with approximately 20% narrowing on both sides. -MR stroke protocol did not demonstrate any findings of acute or subacute infarction. No masses or abnormal enhancement can be seen. No significant intracranial or neck arterial abnormalities or hemodynamically significant stenosis present. Note is made of age-appropriate brain parenchymal volume loss and chronic small vessel ischemic changes and paranasal sinus disease is seen. -EKG demonstrated atrial fibrillation without acute ischemic changes. Continued to monitor on telemetry. -Echocardiogram did not demonstrate embolic source with PFO suspected. -Allowed for permissive hypertension x 24 hours. -Continued home warfarin regimen in which patient was therapeutic with INR 2.5 and atorvastatin increased from 10 mg to 40 mg daily at bedtime for further stroke prophylaxis. -Risk stratified with hemoglobin A1C 5.9% indicative of prediabetes and lipid panel which demonstrated excellent lipid control with: Total cholesterol 104, Triglycerides 98, LDL 49 (goal < 100) and HDL 35. -Continued physical therapy, occupational therapy and speech therapy evaluation and treatment. Patient discharged home without needs. Physical therapy recommended outpatient PT for balance and gait improvement. 2. Chronic atrial fibrillation on warfarin, present on admission. Stable. -Initial INR therapeutic at 2.2. Continued home warfarin regimen with 5 mg on Tuesdays and Saturdays and 2.5 mg on Monday, Monday, Monday, and Monday. Continued to monitor INR currently 2.5. -Continued home metoprolol succinate 100 mg daily and 25 mg daily at bedtime for rate control. 3. Hypertension, chronic, present on admission. Stable. -Allowed for permissive hypertension x 24 hours. -Continued home metoprolol succinate 100 mg daily and 25 mg daily at bedtime. 4. Hyperlipidemia, chronic, present on admission. Stable. -Fasting lipid panel demonstrated excellent lipid control. -Continued home atorvastatin increased from 10 mg to 40 mg daily at bedtime for further stroke prophylaxis. 5. BPH, chronic, present on admission. Stable. -Continued home finasteride 5 mg every other day and tamsulosin 0.4 mg daily at bedtime. Exam Vital Signs (past 8 hours): - 07/19/20 11:35 07/19/20 15:56 Temperature 98.6 F 97.2 F L Pulse Rate 74 72 Respiratory Rate 16 18 Blood Pressure 124/76 139/80 Pulse Oximetry 95 97 Oxygen Delivery Method Room Air Oxygen Flow Rate 0 Narrative Exam Narrative: General: Elderly male sitting in bed and in no acute distress, well-developed, well-nourished, appropriately interactive. HEENT: Normocephalic, atraumatic. External ears without defect. Pupils equal, round, and reactive to light. Anicteric sclerae, moist conjunctivae, and no lid lag. Oropharynx free of erythema and cobble stoning with moist mucosa. Neck: Supple with full range of motion. No jugular venous distension. No bruits. No lymphadenopathy or thyromegaly. Cardiovascular: Irregularly irregular without murmurs, rubs, or gallops appreciated. Pulmonary: Clear to auscultation bilaterally without crackles, wheezes, or rhonchi. Normal respiratory effort with no use of accessory muscles. Abdomen: Bowel tones present. Soft, nontender, nondistended. No hepatosplenomegaly or masses appreciated. Extremities: No clubbing, cyanosis, or edema. Skin: Normal temperature, turgor, and texture; no rash, ulcers, or subcutaneous nodules appreciated. Neurological: Cranial nerves grossly intact. No facial droop. No speech impairment including dysarthria, slurred speech or expressive aphasia. Normal muscle strength, tone, and bulk. Reflexes, coordination, and sensory function within normal limits. Psychiatric: Normal mood and affect. Alert and oriented to person, place, and time. Objective Labs Result Diagrams: 07/19/20 05:15 07/19/20 05:15 Labs: Laboratory Results - last 24 hr 07/18/20 07/18/20 07/18/20 16:55 16:55 16:55 WBC 6.8 RBC 4.61 Hgb 14.0 Hct 41.7 MCV 90.4 MCH 30.4 MCHC 33.7 RDW 14.1 Plt Count 293 Neut % (Auto) 67.3 Lymph % (Auto) 17.1 L Bullock % (Auto) 11.8 Eos % (Auto) 3.0 Baso % (Auto) 0.8 Neut # (Auto) 4600 Lymph # (Auto) 1200 Bullock # (Auto) 800 Eos # (Auto) 200 Baso # (Auto) 100 PT 25.1 H INR 2.2 H APTT 45 H Sodium 135 L Potassium 4.1 Chloride 103 Carbon Dioxide 26 BUN 19 Creatinine 1.08 Estimated GFR > 60.0 BUN/Creatinine Ratio 17.6 Glucose 100 Hemoglobin A1c Calcium 8.6 Magnesium Total Bilirubin 1.2 AST 30 ALT 24 Alkaline Phosphatase 104 Total Creatine Kinase 65 CK-MB (CK-2) TNP CK-MB (CK-2) Rel Index TNP Troponin I < 0.012 Total Protein 6.6 Albumin 3.7 Globulin 2.9 Albumin/Globulin Ratio 1.3 Triglycerides Cholesterol LDL Cholesterol, Calc HDL Cholesterol Urine RBC Urine WBC Ur Squamous Epith Cells Urine Bacteria Ur Culture Indicated? U Opiates 300ng/mL cut Ur Oxycodone Screen Urine Methadone Screen Ur Barbiturates Screen U Tricyclic Antidepress Ur Phencyclidine Scrn Ur Amphetamines Screen U Methamphetamines Scrn Ur MDMA Scrn (Ecstasy) U Benzodiazepines Scrn Urine Cocaine Screen U Marijuana (THC) Screen COVID-19 PCR 07/18/20 07/18/20 07/18/20 16:55 17:15 17:15 WBC RBC Hgb Hct MCV MCH MCHC RDW Plt Count Neut % (Auto) Lymph % (Auto) Bullock % (Auto) Eos % (Auto) Baso % (Auto) Neut # (Auto) Lymph # (Auto) Bullock # (Auto) Eos # (Auto) Baso # (Auto) PT INR APTT Sodium Potassium Chloride Carbon Dioxide BUN Creatinine Estimated GFR BUN/Creatinine Ratio Glucose Hemoglobin A1c 5.9 Calcium Magnesium Total Bilirubin AST ALT Alkaline Phosphatase Total Creatine Kinase CK-MB (CK-2) CK-MB (CK-2) Rel Index Troponin I Total Protein Albumin Globulin Albumin/Globulin Ratio Triglycerides Cholesterol LDL Cholesterol, Calc HDL Cholesterol Urine RBC 1-5/hpf Urine WBC 1-5/hpf Ur Squamous Epith Cells 1-5 /hpf Urine Bacteria Occasional (0-1) Ur Culture Indicated? Specimen cultured U Opiates 300ng/mL cut Negative Ur Oxycodone Screen Negative Urine Methadone Screen Negative Ur Barbiturates Screen Negative U Tricyclic Antidepress Negative Ur Phencyclidine Scrn Negative Ur Amphetamines Screen Negative U Methamphetamines Scrn Negative Ur MDMA Scrn (Ecstasy) Negative U Benzodiazepines Scrn Negative Urine Cocaine Screen Negative U Marijuana (THC) Screen Negative COVID-19 PCR 07/18/20 07/19/20 07/19/20 17:55 05:15 05:15 WBC 6.5 RBC 4.21 L Hgb 12.6 L Hct 38.3 L MCV 91.0 MCH 29.9 MCHC 32.9 RDW 14.1 Plt Count 248 Neut % (Auto) 64.3 Lymph % (Auto) 19.9 L Bullock % (Auto) 12.1 Eos % (Auto) 2.9 Baso % (Auto) 0.8 Neut # (Auto) 4200 Lymph # (Auto) 1300 Bullock # (Auto) 800 Eos # (Auto) 200 Baso # (Auto) 0 PT 28.3 H INR 2.5 H APTT Sodium Potassium Chloride Carbon Dioxide BUN Creatinine Estimated GFR BUN/Creatinine Ratio Glucose Hemoglobin A1c Calcium Magnesium Total Bilirubin AST ALT Alkaline Phosphatase Total Creatine Kinase CK-MB (CK-2) CK-MB (CK-2) Rel Index Troponin I Total Protein Albumin Globulin Albumin/Globulin Ratio Triglycerides Cholesterol LDL Cholesterol, Calc HDL Cholesterol Urine RBC Urine WBC Ur Squamous Epith Cells Urine Bacteria Ur Culture Indicated? U Opiates 300ng/mL cut Ur Oxycodone Screen Urine Methadone Screen Ur Barbiturates Screen U Tricyclic Antidepress Ur Phencyclidine Scrn Ur Amphetamines Screen U Methamphetamines Scrn Ur MDMA Scrn (Ecstasy) U Benzodiazepines Scrn Urine Cocaine Screen U Marijuana (THC) Screen COVID-19 PCR Negative 07/19/20 05:15 WBC RBC Hgb Hct MCV MCH MCHC RDW Plt Count Neut % (Auto) Lymph % (Auto) Bullock % (Auto) Eos % (Auto) Baso % (Auto) Neut # (Auto) Lymph # (Auto) Bullock # (Auto) Eos # (Auto) Baso # (Auto) PT INR APTT Sodium 134 L Potassium 3.9 Chloride 107 Carbon Dioxide 26 BUN 17 Creatinine 1.06 Estimated GFR > 60.0 BUN/Creatinine Ratio 16.0 Glucose 86 Hemoglobin A1c Calcium 7.8 L Magnesium 2.1 Total Bilirubin AST ALT Alkaline Phosphatase Total Creatine Kinase CK-MB (CK-2) CK-MB (CK-2) Rel Index Troponin I Total Protein Albumin Globulin Albumin/Globulin Ratio Triglycerides 98 Cholesterol 104 L LDL Cholesterol, Calc 49 HDL Cholesterol 35 L Urine RBC Urine WBC Ur Squamous Epith Cells Urine Bacteria Ur Culture Indicated? U Opiates 300ng/mL cut Ur Oxycodone Screen Urine Methadone Screen Ur Barbiturates Screen U Tricyclic Antidepress Ur Phencyclidine Scrn Ur Amphetamines Screen U Methamphetamines Scrn Ur MDMA Scrn (Ecstasy) U Benzodiazepines Scrn Urine Cocaine Screen U Marijuana (THC) Screen COVID-19 PCR Discharge Plan Discharge Plan Patient Disposition: Home Discharge comment: You are being discharged home. You did not have a stroke. You likely had a TIA or mini stroke. Your blood pressure is well controlled. Your warfarin is therapeutic. Your cholesterol is well controlled, however, your atorvastatin dose was increased from 10 mg to 40 mg daily at bedtime to further protect you against stroke by decreasing and stabilizing plaque disease. You are prediabetic and recommend lifestyle modification as discussed including: Low-fat and low-carbohydrate diet and exercise. Please follow-up with your primary care doctor, Dr. Pinto, in the next 1 week regarding your hospitalization. Discharge orders & Medications Prescriptions: New atorvastatin 40 mg tablet 40 mg PO BEDTIME Qty: 30 RF: 0 Continued multivitamin [Multiple Vitamins] 1 EACH tablet 1 tab PO DAILY Qty: 0 RF: 0 cholecalciferol (vitamin D3) [Vitamin D3] 2,000 UNIT tablet 2,000 unit PO DAILY Qty: 0 RF: 0 warfarin 5 mg tablet See Rx Instructions .ROUTE .COMPLEX Qty: 90 RF: 3 finasteride 5 mg tablet 5 mg PO Q OTHER DAY Qty: 90 RF: 3 clobetasol 0.05 % ointment 1 applic topical BID PRN (Reason: as directed) Qty: 30 RF: 3 metoprolol succinate 100 MG tablet extended release 24 hr 100 mg PO QAM RF: 0 Iron High Potency 27 mg tablet 27 mg PO DAILY RF: 0 Ocuvite 30unit 5mg 150mg 1 cap PO DAILY RF: 0 tamsulosin 0.4 mg capsule 0.4 mg PO BEDTIME RF: 0 metoprolol succinate [Toprol XL] 25 mg tablet extended release 24 hr 25 mg PO BEDTIME RF: 0 Discontinued atorvastatin [Lipitor] 10 MG tablet 10 mg PO BEDTIME Qty: 0 RF: 0 Follow up/Referrals: Oleksandr Pinto DO [Primary Care Provider] - 1 Week Diet/Activity/Treatments Diet: Low-fat, Low-sodium and Low-cholesterol Activity: Activity as tolerated Visit Report/Discharge Packet Instructions: The Mediterranean Diet and Good Health, Heart-Healthy Diet, DI for Transient Ischemic Attack, How to Prevent Falls, Mediterranean Diet May Reduce the Risk of Stroke in People with High Risk o Visit Report Forms: Patient Portal/API, Stroke Signs & Symptoms Discharge Data Primary Care Provider: Oleksandr Pinto Attending Provider: Sofi Cain Admit Date/Time: 07/18/20 17:45 Discharges patient from system. Discharge Date/Time: 07/19/20 18:26
--- NOTE | 2020-07-19 18:25 | PC.NURSE ---
Discharge education provided. Pt verbalized understanding of all education. Script for Lipitor given. Pt stated he will fill script. Wallet placed in safe returned to pt. Pt escorted off unit by OCCUPATIONAL MEDICINE SPECIALIST. Pt left in stable condition with all personal belongings.
== END 2020-07-19 18:26 | disposition home or self-care (01) ==
LOC: ED 17:34 → AC 17:46
PROVIDERS: Nurse Practitioner Family; Admitting Provider Internal Medicine; Emergency Provider Nurse Practitioner; PCP Family Medicine; Referring Provider Nurse Practitioner; Visit Provider Internal Medicine
DX: R53.1 Weakness (principal); E78.5 Hyperlipidemia, unspecified; I48.91 Unspecified atrial fibrillation; Z79.01 Long term (current) use of anticoagulants; I10 Essential (primary) hypertension; R73.03 Prediabetes; Z11.59 Encounter for screening for other viral diseases; R47.1 Dysarthria and anarthria; R20.0 Anesthesia of skin
CPT/HCPCS: 36415; 70450; 70496; 70498; 70548; 70553; 80048; 80053; 80061; 80305; 81003; 81015; 82550; 82962; 83036; 83735; 84484; 85025; 85610; 85730; 87086; 87635; 92610; 93005; 93306; 96360; 96361; 97161; 99285; G0378; Q9967

== ENCOUNTER 2020-08-07 20:31 | Emergency (ER) | payer MEDICARE, OTHER, SELFPAY ==
[2020-08-07] VITALS (10 sets, daily range): BP systolic 125–167; BP diastolic 67–75; PULSE 77–87; RESP 17–30; TEMP 36.3; O2SAT 93–98; BMI 23.1
--- NOTE | 2020-08-07 20:52 | DI.RAD.S_ITS ---
PROCEDURE: XR CHEST 1V INDICATIONS: chest pain TECHNIQUE: One view of the chest was acquired. COMPARISON: [facility], , CHEST 2 VIEW, 08/17/2016, 8:48. [facility], , CHEST 2 VIEW, 03/05/2018, 9:42. [facility], , XR CHEST 1V, 06/13/2020, 16:57. FINDINGS: Surgical changes and devices: None. Lungs and pleura: Trace left-sided pleural effusion. Parenchymal scarring left lung base is stable. Interstitial prominence is stable. Calcified granulomas in the right lung apex is stable.. Mediastinum: Mediastinal contours appear normal. Heart size is normal. Bones and chest wall: No suspicious bony lesions. Overlying soft tissues appear unremarkable. IMPRESSION: Trace left-sided pleural effusion. Dictated by: Shahida Elliott MD, PhD on 08/07/2020 at 21:07 Approved by: Shahida Elliott MD, PhD on 08/07/2020 at 21:09
[2020-08-07 21:00] LABS: Add Manual Diff / Slide Review NO; Basophils Absolute Auto 0 /uL (0-100); Basophils Percent Auto 0.7 % (0-2); Eosinophils Absolute Auto 200 /uL (0-450); Hematocrit 44.4 % (41-53); Hemoglobin 14.9 g/dL (13.5-17.5); Lymphocytes Absolute Auto 1300 /uL (1100-4500); Mean Corpuscular HGB Conc 33.5 % (30-36); Mean Corpuscular Hemoglobin 30.2 PG (26-34); Mean Corpuscular Volume 90.1 fL (80-100); Monocytes Absolute Auto 700 /uL (0-900); Monocytes Percent Auto 9.5 % (3-14); Neutrophils Absolute Auto 4700 /uL (1500-7000); Neutrophils Percent Auto 67.8 % (50-75); Platelet Count 295 X10^3/uL (150-400); Red Blood Cell Count 4.93 X10^6/uL (4.5-5.9); Red Cell Distribution Width 14.2 % (11.6-14.8)
[2020-08-07 21:06] LABS: INR 2.7 (0.9-1.3); Prothrombin Time 30.5 SECONDS (10.1-12.7)
[2020-08-07 21:08] LABS: PTT Partial Thromboplastin Tim 51 SECONDS (26.4-36.2)
[2020-08-07 21:11] LABS: Alanine Aminotransferase 25 IU/L (<50); Albumin 3.9 g/dL (3.5-5.0); Albumin Globulin Ratio 1.2 (1.0-2.8); Alkaline Phosphatase 103 U/L (38-126); Aspartate Aminotransferase 32 IU/L (17-59); BUN Creatinine Ratio 16.1 (6-22); Bilirubin Total 1.4 mg/dL (0.2-1.3); Blood Urea Nitrogen 19 mg/dL (9-20); Calcium 8.6 mg/dL (8.4-10.2); Carbon Dioxide 27 mmol/L (22-32); Chloride 100 mmol/L (98-107); Creatine Kinase 66 U/L (55-170); Estimated Glomerular Filt Rate 59.1 mL/min (>60); Globulin 3.2 g/dL (1.7-4.1); Glucose 103 mg/dL (80-110); HEMOLYSIS 33 (0-50); Lipase 332 U/L (23-300); Potassium 4.3 mmol/L (3.4-5.1); Sodium 135 mmol/L (137-145); Total Protein 7.1 g/dL (6.3-8.2)
[2020-08-07 21:22] LABS: Troponin I < 0.012 ng/mL (0.01-0.034)
--- NOTE | 2020-08-07 22:30 | ED.DIZZY ---
HPI - Dizziness General Chief Complaint: Dizziness Stated Complaint: lightheadedness Time Seen by Provider: 08/07/20 20:56 Source: patient Mode of arrival: Family Vehicle History of Present Illness HPI Narrative: Patient here for dizziness that restarted again this morning and this afternoon. Patient seen here for the same complaint 3 weeks ago and had MRI MRA stroke workup in echocardiogram. Denies any chest pain palpitations, no vision changes. No nausea or vomiting. No hearing changes. Dizzy with walking, no dizziness at rest. Does not feel like the room or himself spinning. No nausea or vomiting. No black bloody stools. No urinary complaints. MD complaint: dizziness and lightheadedness Related Data Home Medications Medication Instructions Recorded Confirmed multivitamin [Multiple Vitamins] 1 tab PO DAILY #0 03/06/13 07/23/20 cholecalciferol (vitamin D3) 2,000 unit PO DAILY #0 tab 08/03/16 07/23/20 [Vitamin D3] Iron High Potency 27 mg PO DAILY 04/09/19 07/23/20 Ocuvite 30unit 5mg 150mg 1 cap PO DAILY 04/09/19 07/23/20 metoprolol succinate 100 mg PO QAM 04/09/19 07/23/20 metoprolol succinate [Toprol XL] 25 mg PO BEDTIME 07/18/20 07/23/20 Previous Rx's Medication Instructions Recorded finasteride 5 mg tablet 5 mg PO Q OTHER DAY #90 tab 11/08/19 clobetasol 0.05 % topical ointment 1 applic TOPICAL BID PRN #30 gram 12/10/19 warfarin 5 mg tablet See Rx Instructions .ROUTE 12/25/19 .COMPLEX #90 tab atorvastatin 40 mg PO BEDTIME #30 tab 07/19/20 tamsulosin 0.4 mg capsule 0.4 mg PO BEDTIME #90 cap 07/29/20 Allergies Allergy/AdvReac Type Severity Reaction Status Date / Time No Known Drug Allergies Allergy Verified 07/23/20 11:01 Review of Systems Review of Systems Narrative: GENERAL: Denies chills, fatigue, malaise, fever, sweats. HEENT: Denies sinus pain, ear pain, sore throat, difficulty swallowing, RESPIRATORY: Denies dyspnea, cough, wheezing, hemoptysis, sputum. CARDIOVASCULAR: Denies chest pain, palpitations, orthopnea, edema, GASTROINTESTINAL: Denies nausea, vomiting, abdominal pain, diarrhea, constipation, melena. : Denies dysuria, frequency, incontinence, hematuria, urinary retention. MUSCULOSKELETAL: denies weakness, joint pain, or bony pain SKIN: Denies rash, skin lesions NEUROLOGIC: Denies weakness, headache, numbness, change in speech, confusion, seizures, incoordination. Complains of dizziness PSYCHIATRIC: No concerning psychosocial issues. 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) Cervical somatic dysfunction (Acute) Chest pressure (Acute) Chronic atrial fibrillation (01/02/18) Chronic bilateral low back pain without sciatica (Acute) Cranial somatic dysfunction (Acute) Diplopia (Acute) Essential hypertension (02/16/16) Foot stiffness (Acute) Incomplete emptying of bladder (02/16/16) Low HDL (under 40) (Acute) Orthostatic lightheadedness (Inactive) Pelvic somatic dysfunction (Acute) Pleural effusion (Acute) Segmental and somatic dysfunction of lumbar region (Acute) Segmental and somatic dysfunction of rib cage (Acute) Segmental and somatic dysfunction of sacral region (Acute) Segmental and somatic dysfunction of thoracic region (Acute) Somatic dysfunction of both lower extremities (Acute) Stiff neck (Acute) Vasovagal near syncope (Acute) Vitamin D deficiency (Acute) Surgical History Hx of cholecystectomy (Acute) Status post cholecystectomy Family History Mother CVA (cerebral vascular accident) Father Diabetes mellitus Social History household members: none Smoking Status: Former smoker alcohol intake: former Smoking Status: Former smoker alcohol intake frequency: 0-2 drinks per day Substance Use Type: does not use Exam Narrative Exam Narrative: GENERAL: patient appears stated age. Well-nourished, well-developed patient, in no distress, not toxic HEAD: Atraumatic. Normocephalic. EYES: Pupils equal round and reactive. Extraocular motions intact. No scleral icterus. No injection or drainage. ENT: Nose without bleeding, purulent drainage. Throat without erythema, tonsillar hypertrophy or exudate. Airway patent. NECK: Trachea midline. Non tender CARDIOVASCULAR: Regular rate and rhythm without murmurs, gallops, or rubs. RESPIRATORY: Clear to auscultation. Breath sounds equal bilaterally. No wheezes, rales, or rhonchi. GASTROINTESTINAL: Abdomen soft, non-tender, nondistended. EXTREMITIES: No edema or joint tenderness. BACK: Nontender without deformity or crepitance. No flank tenderness. NEURO: AOx4. Clear speech no facial droop steady self gait no foot drop. Light touch intact to bilateral face hands and legs. Strong equal court worker bilaterally and ankle flexion hip flexion and knee flexion. Strong bilateral patellar reflexes. Steady Romberg, negative pronator drift SKIN: No rash or erythema of visible areas PSYCH: Not anxious, is cooperative Initial Vital Signs Initial Vital Signs: Vital Signs Temperature 97.4 F L 08/07/20 20:38 Pulse Rate 80 08/07/20 20:38 Respiratory Rate 17 08/07/20 20:38 Blood Pressure 161/75 H 08/07/20 20:38 Pulse Oximetry 93 08/07/20 20:38 Scores NIH Stroke Scale Level of Conciousness: Alert, keenly responsive Ask month/age: Answers both questions correctly. Open/close eyes, close hand: Performs both tasks correctly Best gaze horizontal: Normal Visual tang: No visual loss Facial palsy: Normal symetrical movement Left arm drift: No drift for full 10 sec Right arm drift: No drift for full 10 sec Left leg drift: No drift for full 5 sec Right leg drift: No drift for full 5 sec Limb ataxia: Absent Sensory on face/arms/legs: Normal, no sensory loss Best language: No aphasia, normal Dysarthria: Normal Extinction or inattention: No abnormality Total NIH Stroke scale score: 0 Course Course Course Narrative: Patient did have telemedicine/tele stroke conference by video with stroke doctor. dr ch Orders Ordered: ED Orders 08/07/20 20:50 Complete Blood Count AUTO DIFF Stat Comprehensive Metabolic Panel Stat Lipase Stat Partial Thromboplastin Time Stat Prothrombin Time INR Stat Troponin & CK Cardiac Panel Stat Vitamin B12 Stat 08/07/20 20:52 XR chest 1V Stat Reevaluation(s) Reevaluation #1: I spoke with patient and he agrees with the plan described by stroke provider. This is not a stroke. Likely needs peripheral neuropathy workup Time: 22:33 Consultations Consultation #1: Spoke with stroke team dr ch, she is doing tele stroke conference video with patient now. After completion she did speak with me and states that patient does not need any further imaging tonight. This does not sound like a stroke. Patient recently had full workup 3 weeks ago including MRI MRA and echocardiogram. Needs outpatient MRI of the spine and neurology evaluation on outpatient basis Time: 21:45 Vital Signs Vital signs: Vital Signs - 8 hr 08/07/20 20:38 08/07/20 20:49 08/07/20 21:00 Temperature 97.4 F L Pulse Rate 80 82 77 Pulse Rate [Orthostatic Lying] Pulse Rate [Orthostatic Sitting] Pulse Rate [Orthostatic Standing] Respiratory Rate 17 20 20 Blood Pressure 161/75 H 134/75 Blood Pressure [Orthostatic Lying] Blood Pressure [Orthostatic Sitting] Blood Pressure [Orthostatic Standing] Pulse Oximetry 93 98 96 08/07/20 21:21 08/07/20 21:22 08/07/20 21:23 Temperature Pulse Rate 77 84 87 Pulse Rate [Orthostatic Lying] Pulse Rate [Orthostatic Sitting] Pulse Rate [Orthostatic Standing] Respiratory Rate 18 22 30 H Blood Pressure 141/69 H 136/67 125/68 Blood Pressure [Orthostatic Lying] Blood Pressure [Orthostatic Sitting] Blood Pressure [Orthostatic Standing] Pulse Oximetry 97 95 95 08/07/20 21:26 08/07/20 21:30 08/07/20 22:33 Temperature Pulse Rate 79 82 Pulse Rate [Orthostatic Lying] 82 Pulse Rate [Orthostatic Sitting] 81 Pulse Rate [Orthostatic Standing] 82 Respiratory Rate 17 22 Blood Pressure 149/74 H 167/71 H Blood Pressure [Orthostatic Lying] 141/69 H Blood Pressure [Orthostatic Sitting] 136/67 Blood Pressure [Orthostatic Standing] 125/68 Pulse Oximetry 96 96 08/07/20 22:53 Temperature 97.4 F L Pulse Rate 81 Pulse Rate [Orthostatic Lying] Pulse Rate [Orthostatic Sitting] Pulse Rate [Orthostatic Standing] Respiratory Rate 19 Blood Pressure 167/71 H Blood Pressure [Orthostatic Lying] Blood Pressure [Orthostatic Sitting] Blood Pressure [Orthostatic Standing] Pulse Oximetry 98 MDM - Dizziness Differential Diagnosis Differential diagnosis: Likely benign paroxysmal positional vertigo, cerebrovascular accident, acute vestibular neuronitis, transient cerebral ischemia and other (Peripheral neuropathy) Medical Records Attestation: I reviewed the patient's medical records. Medical records narrative: [address] [address] Magnetic Resonance Report Signed Patient: Nestor Mercedes CMR#: [id number] : 8Acct:[id number] Age/Sex: 80 / MDate of Service: 07/18/20 Loc: HB289-5 Accession Number: [id number] Procedure: MR stroke Ordering Provider: Pau Forrester PROCEDURE: MR STROKE Pre- and post-contrast brain MRI, non-contrast brain MR angiogram, pre- and postcontrast neck MR angiogram INDICATIONS: left hand weakness, ?TIA/CVA TECHNIQUE: Brain: Noncontrast axial T1 spin echo, axial T2 fast spin echo, sagittal and axial FLAIR, coronal T2 fast spin echo, axial gradient echo, axial diffusion and ADC through the brain. After the administration of contrast, axial 3D VIBE of the cranial vasculature and brain. Brain MRA: Non-contrast 3-D time of flight MR angiogram, with multiple pbequme-shtbpxzoq-xxwiqchzsu (MIP) reformats performed. Neck MRA: Axial and sagittal TruFISP through the neck. Coronal dynamic MR angiogram during administration of contrast in the arterial and venous phases, with 3-dimenstional brqgtse-mnwqpelxr-uxnxvjxxlx (MIP) reformats constructed from subtraction images. COMPARISON: [facility], CT, CT ANGIO HEAD AND NECK, 07/18/2020, 16:47. [facility], CT, CT STROKE, 07/18/2020, 16:47. FINDINGS: Image quality: Excellent. BRAIN: CSF spaces: Ventricles are normal in size and shape. Basal cisterns are patent. No extra-axial fluid collections. Brain: No intracranial bleeds or mass effects. Duenas-white matter interface is normal. Diffusion weighted images show no acute ischemic insults. Brainstem appears normal. Brain parenchymal volume loss is seen. Chronic small vessel ischemic change is seen. Normal intravascular flow voids are present. No abnormal intracranial enhancement. Skull and face: Calvarial marrow signal is normal. Orbits appear normal. Note is made of bilateral lens replacements. Sinuses: Focal mucosal thickening is seen involving the left anterior ethmoid air cells. There is relatively prominent opacification seen of the sphenoid sinuses. Mild mucosal thickening is seen elsewhere within the paranasal sinuses. No abnormal fluid is seen within the mastoid air cells. BRAIN MR ANGIOGRAM: Anterior circulation: Intracranial internal carotid arteries are normal in size and enhancement. The flow within the paired anterior cerebral arteries is normal and symmetric. The flow within the middle cerebral arteries is normal and symmetric. The anterior communicating artery is not well seen. No stenoses, occlusions, or aneurysms. Posterior circulation: The visualized portions of the vertebral arteries demonstrate normal caliber, and join to form a normal appearing basilar artery. The flow within the posterior cerebral arteries is normal and symmetric. No stenoses, occlusions, or aneurysms. NECK MR ANGIOGRAM: Carotids: Great vessels demonstrate a conventional anatomy as they arise from the aortic arch. The origins of the common carotid arteries appear patent. The calibers and courses of both common carotid arteries are normal. The bifurcation regions appear normal bilaterally. The internal carotid arteries demonstrate normal course and caliber. Posterior circulation: The origins of the vertebral arteries appear patent. More superior portions of both vertebral arteries demonstrate normal course and caliber, and join to form a normal appearing basilar artery. Miscellaneous: Subclavian arteries appear patent. Pre-contrast images through the neck show no soft tissue abnormalities. IMPRESSION: BRAIN MRI: No findings of acute or subacute infarction can be seen. No masses or abnormal enhancement can be seen. Note is made of age-appropriate brain parenchymal volume loss and chronic small vessel ischemic changes. Paranasal sinus disease is seen. BRAIN MR ANGIOGRAM: No significant intracranial arterial abnormality is seen. NECK MR ANGIOGRAM: Within the arteries of the neck, no hemodynamically significant stenosis can be seen. Dictated by: Rafal Jackson M.D. on 07/19/2020 at 10:10 Approved by: Rafal Jackson M.D. on 07/19/2020 at 10:14 Lab Data Attestation: I reviewed the patient's lab results. Result diagrams: 08/07/20 20:50 08/07/20 20:50 Labs: Lab Results 08/07/20 08/07/20 08/07/20 Range/Units 20:50 20:50 20:50 WBC 7.0 (4.5-11.0) X10^3/uL RBC 4.93 (4.5-5.9) X10^6/uL Hgb 14.9 (13.5-17.5) g/dL Hct 44.4 (41-53) % MCV 90.1 (80-100) fL MCH 30.2 (26-34) PG MCHC 33.5 (30-36) % RDW 14.2 (11.6-14.8) % Plt Count 295 (150-400) X10^3/uL Neut % (Auto) 67.8 (50-75) % Lymph % (Auto) 19.0 L (25-40) % Granite % (Auto) 9.5 (3-14) % Eos % (Auto) 3.0 (2-4) % Baso % (Auto) 0.7 (0-2) % Neut # (Auto) 4700 (0282-8328) /uL Lymph # (Auto) 1300 (6081-9596) /uL Granite # (Auto) 700 (0-900) /uL Eos # (Auto) 200 (0-450) /uL Baso # (Auto) 0 (0-100) /uL PT 30.5 H (10.1-12.7) SECONDS INR 2.7 H (0.9-1.3) APTT 51 H D (26.4-36.2) SECONDS Sodium 135 L (137-145) mmol/L Potassium 4.3 (3.4-5.1) mmol/L Chloride 100 (98-107) mmol/L Carbon Dioxide 27 (22-32) mmol/L BUN 19 (9-20) mg/dL Creatinine 1.18 (0.66-1.25) mg/dL Estimated GFR 59.1 L (>60) mL/min BUN/Creatinine Ratio 16.1 (6-22) Glucose 103 (80-110) mg/dL Calcium 8.6 (8.4-10.2) mg/dL Total Bilirubin 1.4 H (0.2-1.3) mg/dL AST 32 (17-59) IU/L ALT 25 (<50) IU/L Alkaline Phosphatase 103 (38-126) U/L Total Creatine Kinase 66 (55-170) U/L CK-MB (CK-2) TNP CK-MB (CK-2) Rel Index TNP Troponin I < 0.012 (0.01-0.034) ng/mL Total Protein 7.1 (6.3-8.2) g/dL Albumin 3.9 (3.5-5.0) g/dL Globulin 3.2 (1.7-4.1) g/dL Albumin/Globulin Ratio 1.2 (1.0-2.8) Lipase 332 H (23-300) U/L Vitamin B12 (239-931) pg/mL 08/07/20 Range/Units 20:50 WBC (4.5-11.0) X10^3/uL RBC (4.5-5.9) X10^6/uL Hgb (13.5-17.5) g/dL Hct (41-53) % MCV (80-100) fL MCH (26-34) PG MCHC (30-36) % RDW (11.6-14.8) % Plt Count (150-400) X10^3/uL Neut % (Auto) (50-75) % Lymph % (Auto) (25-40) % Granite % (Auto) (3-14) % Eos % (Auto) (2-4) % Baso % (Auto) (0-2) % Neut # (Auto) (1267-0164) /uL Lymph # (Auto) (0792-8964) /uL Granite # (Auto) (0-900) /uL Eos # (Auto) (0-450) /uL Baso # (Auto) (0-100) /uL PT (10.1-12.7) SECONDS INR (0.9-1.3) APTT (26.4-36.2) SECONDS Sodium (137-145) mmol/L Potassium (3.4-5.1) mmol/L Chloride (98-107) mmol/L Carbon Dioxide (22-32) mmol/L BUN (9-20) mg/dL Creatinine (0.66-1.25) mg/dL Estimated GFR (>60) mL/min BUN/Creatinine Ratio (6-22) Glucose (80-110) mg/dL Calcium (8.4-10.2) mg/dL Total Bilirubin (0.2-1.3) mg/dL AST (17-59) IU/L ALT (<50) IU/L Alkaline Phosphatase (38-126) U/L Total Creatine Kinase (55-170) U/L CK-MB (CK-2) CK-MB (CK-2) Rel Index Troponin I (0.01-0.034) ng/mL Total Protein (6.3-8.2) g/dL Albumin (3.5-5.0) g/dL Globulin (1.7-4.1) g/dL Albumin/Globulin Ratio (1.0-2.8) Lipase (23-300) U/L Vitamin B12 676 (239-931) pg/mL Imaging Data Chest x-ray: Radiologist's Impression: [address] [address] XRay Report Signed Patient: Nestor Mercedes CMR#: [id number] : 8Acct:[id number] Age/Sex: 80 / MDate of Service: 08/07/20 Loc: ED Accession Number: [id number] Procedure: XR chest 1V Ordering Provider: Nestor Vera MD PROCEDURE: XR CHEST 1V INDICATIONS: chest pain TECHNIQUE: One view of the chest was acquired. COMPARISON: [facility], , CHEST 2 VIEW, 08/17/2016, 8:48. [facility], CR, CHEST 2 VIEW, 03/05/2018, 9:42. [facility], XR CHEST 1V, 06/13/2020, 16:57. FINDINGS: Surgical changes and devices: None. Lungs and pleura: Trace left-sided pleural effusion. Parenchymal scarring left lung base is stable. Interstitial prominence is stable. Calcified granulomas in the right lung apex is stable.. Mediastinum: Mediastinal contours appear normal. Heart size is normal. Bones and chest wall: No suspicious bony lesions. Overlying soft tissues appear unremarkable. IMPRESSION: Trace left-sided pleural effusion. Dictated by: Shahida Elliott MD, PhD on 08/07/2020 at 21:07 Approved by: Shahida Elliott MD, PhD on 08/07/2020 at 21:09 ECG Data Attestation: I personally reviewed and interpreted this ECG as follows: Interpretation: Atrial fibrillation. Rate 78. History of AFib MDM Narrative Medical decision making narrative: Appropriate for discharge home. Patient not symptomatic at this time. He agrees with treatment plan. Understands he had full stroke workup 3 weeks ago. Orthostatics completed. Patient is not orthostatic Discharge Plan Departure Patient Disposition: Home Clinical Impression: Dizziness Discharge Date/Time: 08/07/20 22:53 Instructions: DI for Dizziness-Nonvertigo Activity Restrictions/Additional Instructions: Call your family doctor on Monday for referral to neurologist for your dizziness. As discussed today by the stroke team. You had a Neurology referral by family doctor within the last year. Will need to recontact them. You will need to schedule outpatient MRI of the cervical and thoracic and lumbar spine with her family doctor. Return if worse or if any questions or concerns. Prescriptions: No Action multivitamin [Multiple Vitamins] 1 EACH tablet 1 tab PO DAILY Qty: 0 RF: 0 cholecalciferol (vitamin D3) [Vitamin D3] 2,000 UNIT tablet 2,000 unit PO DAILY Qty: 0 RF: 0 warfarin 5 mg tablet See Rx Instructions .ROUTE .COMPLEX Qty: 90 RF: 3 tamsulosin 0.4 mg capsule 0.4 mg PO BEDTIME Qty: 90 RF: 0 finasteride 5 mg tablet 5 mg PO Q OTHER DAY Qty: 90 RF: 3 clobetasol 0.05 % ointment 1 applic topical BID PRN (Reason: as directed) Qty: 30 RF: 3 metoprolol succinate 100 MG tablet extended release 24 hr 100 mg PO QAM RF: 0 Iron High Potency 27 mg tablet 27 mg PO DAILY RF: 0 Ocuvite 30unit 5mg 150mg 1 cap PO DAILY RF: 0 metoprolol succinate [Toprol XL] 25 mg tablet extended release 24 hr 25 mg PO BEDTIME RF: 0 atorvastatin 40 mg tablet 40 mg PO BEDTIME Qty: 30 RF: 0 Referrals: Oleksandr Pinto DO [Primary Care Provider] -
--- NOTE | 2020-08-07 22:49 | PC.NURSE ---
Pt currently goes to PT for balance issues, pt co intermittent dizziness throughout the day.
[2020-08-07 23:42] LABS: Vitamin B12 676 pg/mL (239-931)
== END 2020-08-07 22:53 | disposition home or self-care (01) ==
PROVIDERS: Emergency Provider Emergency Medicine; PCP Family Medicine
DX: R42 Dizziness and giddiness (principal)
CPT/HCPCS: 36415; 71045; 80053; 82550; 82607; 83690; 84484; 85025; 85610; 85730; 93005; 99284

== ENCOUNTER → 2020-08-18 08:50 | Outpatient (CLI) | payer MEDICARE, OTHER, SELFPAY ==
--- NOTE | 2020-08-18 09:05 | DIET.PN ---
Dietary Progress Note Assessment: 80y M here for help with meal planning around hyperlipidemia. 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 Pts TC is 101, LDL is 49, HDL 31 L after medications recently adjusted to 40mg up from 10mg per day statin around 2w ago. Usual Day: B: cream of wheat or oatmeal c brown sugar, one or two days per week cheerios, on weekends 4 waffles c butter and jam, or egg, sausage and danish muffin L: sandwich c chips (ww bread, lunch meat- ham or spam, cheese-block cheddar, pb and jelly, lettuce tomato, ketchup, mustard, myles) D: frozen tv dinner RD and pt met for brief consult to optimize diet to include more healthy fats and fiber and reduce saturated fats while still being within pts ability and comfort level. Labs: TC 101, LDL 49, HDL 31 Nutrition Diagnosis: altered nutrition related laboratory values r/t nutrition related knowledge deficit aeb pts HLD managed c 40mg statin daily, HDL low at 31, pt relies on ready made foods and does not understand how increased fiber and healthy fats and decreased saturated fats and cholesterol in diet will benefit cardiovascular health, pt has hx of TIA. Interventions: 1. Optimized breakfast meal by discussing balance of carbs, pro, and fiber. Provided pt recipes for overnight oats. Introduced pt to margarita seeds and flax to increase fiber and healthy fats in breakfast in ready made form. 2. Optimized lunch meal by discussing saturated fat meats and encouraging pt to reduce intake of ham, salami, and spam, and instead choose oven roasted turkey, chicken, tuna or salmon. 3. Optimized dinner meal by providing pt handout on guidelines in choosing healthy frozen meals. Used handout with pt to read Nutrition Facts Panel and identify categories of concern. Encouraged pt to screen current meals in freezer, reduce consumption of those less optimal and increase consumption of those meeting guidelines. Monitoring/Evaluations: pt will call with questions
== END ==
PROVIDERS: PCP Family Medicine; Referring Provider Family Medicine; Visit Provider Family Medicine
DX: E78.5 Hyperlipidemia, unspecified (principal); Z71.3 Dietary counseling and surveillance
CPT/HCPCS: 97802

== ENCOUNTER 2020-08-29 10:55 | Emergency (ER) | payer MEDICARE, OTHER, SELFPAY ==
[2020-08-29] VITALS (9 sets, daily range): BP systolic 140–168; BP diastolic 72–84; PULSE 72–98; RESP 14–26; TEMP 36.3; O2SAT 94–98; BMI 23.7
--- NOTE | 2020-08-29 11:11 | DI.CT.S_ITS ---
PROCEDURE: CT HEAD/BRAIN WO CON INDICATIONS: lightheaded/vision problems for several days TECHNIQUE: Noncontrast 4.5 mm thick angled axial sections acquired from the foramen magnum to the vertex, with coronal and sagittal reformats. For radiation dose reduction, the following was used: automated exposure control, adjustment of mA and/or kV according to patient size. COMPARISON: [facility], MR, MR STROKE, 07/19/2020, 9:25. [facility], CT, CT STROKE, 07/18/2020, 16:47. [facility], CT, CT ANGIO HEAD AND NECK, 07/18/2020, 16:47. [facility], CT, CT ANGIO HEAD AND NECK, 06/13/2020, 18:59. [facility], CT, CT HEAD/BRAIN WO CON, 06/13/2020, 18:04. FINDINGS: Image quality: Excellent. CSF spaces: Basal cisterns are patent. No extra-axial fluid collections. The ventricles are symmetric in size and shape. Brain: No intracranial bleeds or masses. There is cerebral volume loss for age, with resultant ventricular and sulcal prominence. There are periventricular and deep white matter chronic small vessel ischemic changes. There is intracranial internal carotid artery atherosclerosis. Skull and face: Calvarium and visualized facial bones appear intact, without suspicious lesions. Sinuses: Visualized sinuses and mastoids are clear. IMPRESSION: No acute intracranial process is seen. No acute intracranial hemorrhage is seen. Note is made of age-appropriate brain parenchymal volume loss and chronic small vessel ischemic changes. Dictated by: Rafal Jackson M.D. on 08/29/2020 at 10:43 Approved by: Rafal Jackson M.D. on 08/29/2020 at 10:44
--- NOTE | 2020-08-29 11:29 | PC.NURSE ---
Pt states that he has chronic difficulty w/ balance and is doing exercises prescribed by pcp. He states that his balance is unchanged but he feels 'odd' and has difficulty describing symptoms. He states it is 'almost like being light headed but denies dizziness / room spinning sensation. Denies fever, chest pain, shortness of breath. No focal weakness noted. He states he feels like this 'on and off' but 'this is worse than normal'. Does not know when symptoms started to get worse - ' may be a few days'. a/o x 4. Levan, warm, dry. BS clear and equal with easy work of breathing. ABd soft, non tender. + pulses in all four extremities equally. Moving all extremities equally.
[2020-08-29 11:35] LABS: Add Manual Diff / Slide Review NO; Basophils Absolute Auto 0 /uL (0-100); Basophils Percent Auto 0.5 % (0-2); Eosinophils Absolute Auto 200 /uL (0-450); Eosinophils Percent Auto 2.5 % (2-4); Hematocrit 44.7 % (41-53); Hemoglobin 14.7 g/dL (13.5-17.5); Lymphocytes Absolute Auto 1100 /uL (1100-4500); Lymphocytes Percent Auto 14.3 % (25-40); Mean Corpuscular HGB Conc 32.8 % (30-36); Mean Corpuscular Hemoglobin 29.7 PG (26-34); Mean Corpuscular Volume 90.5 fL (80-100); Monocytes Absolute Auto 900 /uL (0-900); Monocytes Percent Auto 11.6 % (3-14); Neutrophils Absolute Auto 5500 /uL (1500-7000); Neutrophils Percent Auto 71.1 % (50-75); Platelet Count 300 X10^3/uL (150-400); Red Blood Cell Count 4.94 X10^6/uL (4.5-5.9); Red Cell Distribution Width 14.2 % (11.6-14.8); White Blood Cell Count 7.7 X10^3/uL (4.5-11.0)
[2020-08-29 11:38] LABS: BUN Creatinine Ratio 18.6 (6-22); Blood Urea Nitrogen 21 mg/dL (9-20); Calcium 8.8 mg/dL (8.4-10.2); Carbon Dioxide 27 mmol/L (22-32); Chloride 105 mmol/L (98-107); Creatine Kinase 46 U/L (55-170); Estimated Glomerular Filt Rate > 60.0 mL/min (>60); Glucose 94 mg/dL (80-110); HEMOLYSIS < 15 (0-50); Sodium 136 mmol/L (137-145)
[2020-08-29 11:40] LABS: INR 2.2 (0.9-1.3); Prothrombin Time 25.2 SECONDS (10.1-12.7)
[2020-08-29 11:43] LABS: PTT Partial Thromboplastin Tim 45 SECONDS (26.4-36.2)
[2020-08-29 11:50] LABS: Troponin I < 0.012 ng/mL (0.01-0.034)
--- NOTE | 2020-08-29 13:11 | ED.NEUROSD ---
HPI - Neuro Symptoms/Deficit General Chief Complaint: Neuro Symptoms/Deficit Stated Complaint: lightheadded/vision problems/ couple days Time Seen by Provider: 08/29/20 11:11 Source: patient Mode of arrival: Ambulatory Limitations: no limitations History of Present Illness HPI Narrative: This is a pleasant 80-year-old male comes to the emergency department with complaint of lightheadedness and vision problems for a couple days. Patient states he noted almost double vision but describes it more as blurry particularly this morning while he was shaving at 9:30 a.m. but he has had intermittent vision problems. He also has felt sort of lightheaded, he states he is not want to pass, he does not feel he has vertigo type symptoms but more dizzy. He states he has actually been more stable than normal and has had balance issues for quite some time. He denies headaches, denies eye pain, denies any chest pain or shortness of breath fevers, no chills, no cough cold or congestion recently. Denies any chest pain or shortness breath. He denies any nausea, vomiting any chair urinary symptoms. He has been seen several times for similar symptoms and most recently had a were stroke workup in July of 2020. He states they increased his story the statin to 40 mg and had him at a fish oil and double his B12. He is currently anticoagulated on Coumadin. He has primary care is Dr. Pinto and he is scheduled to see neurology on Monday in [place]. On Anticoagulants: Yes (coumadin) Related Data Home Medications Medication Instructions Recorded Confirmed multivitamin [Multiple Vitamins] 1 tab PO DAILY #0 03/06/13 08/11/20 cholecalciferol (vitamin D3) 2,000 unit PO DAILY #0 tab 08/03/16 08/11/20 [Vitamin D3] Iron High Potency 27 mg PO DAILY 04/09/19 08/11/20 Ocuvite 30unit 5mg 150mg 1 cap PO DAILY 04/09/19 08/11/20 metoprolol succinate 100 mg PO QAM 04/09/19 08/11/20 metoprolol succinate [Toprol XL] 25 mg PO BEDTIME 07/18/20 08/11/20 Previous Rx's Medication Instructions Recorded finasteride 5 mg tablet 5 mg PO Q OTHER DAY #90 tab 11/08/19 clobetasol 0.05 % topical ointment 1 applic TOPICAL BID PRN #30 gram 12/10/19 warfarin 5 mg tablet See Rx Instructions .ROUTE 12/25/19 .COMPLEX #90 tab atorvastatin 40 mg PO BEDTIME #30 tab 07/19/20 tamsulosin 0.4 mg capsule 0.4 mg PO BEDTIME #90 cap 07/29/20 Allergies Allergy/AdvReac Type Severity Reaction Status Date / Time No Known Drug Allergies Allergy Verified 08/29/20 11:02 Review of Systems Review of Systems 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) Cervical somatic dysfunction (Acute) Chest pressure (Acute) Chronic atrial fibrillation (01/02/18) Chronic bilateral low back pain without sciatica (Acute) Cranial somatic dysfunction (Acute) Diplopia (Acute) Essential hypertension (02/16/16) Foot stiffness (Acute) Incomplete emptying of bladder (02/16/16) Low HDL (under 40) (Acute) Orthostatic lightheadedness (Inactive) Pelvic somatic dysfunction (Acute) Pleural effusion (Acute) Segmental and somatic dysfunction of lumbar region (Acute) Segmental and somatic dysfunction of rib cage (Acute) Segmental and somatic dysfunction of sacral region (Acute) Segmental and somatic dysfunction of thoracic region (Acute) Somatic dysfunction of both lower extremities (Acute) Stiff neck (Acute) Vasovagal near syncope (Acute) Vitamin D deficiency (Acute) Surgical History Hx of cholecystectomy (Acute) Status post cholecystectomy Family History Mother CVA (cerebral vascular accident) Father Diabetes mellitus Social History household members: none Smoking Status: Former smoker alcohol intake: former Smoking Status: Former smoker alcohol intake frequency: holidays/special occasions only Substance Use Type: does not use Exam Narrative Exam Narrative: GEN: well nourished, well appearing elderly male, alert and oriented x 3, patient appears to be in no acute distress. HEENT: Atraumatic, pupils are equal round reactive to light, extraocular movements are intact, nares are clear, TMs are clear with no fluid, there is no conjunctival pallor. Throat is clear without any exudates, erythema, tonsillar enlargement or uvular deviation, no facial droop, no dysarthria HEART: Regular rate and rhythm without murmur, clicks, rubs. No carotid bruits, pulses are equal in upper and lower extremities LUNGS:Lungs clear to auscultation, no wheezes, rales, crackles, chest moves symmetrically ABD:bowel sounds normal, soft, non-tender, no guarding, rebound, rigidity, no masses noted, no hepatosplenomegaly MSCL: Non-tender, no muscle atrophy, muscles strength 5/5 upper and lower extremities, full range of motion. NEURO:CN 2-12 intact, sensation normal, reflexes 2/4 upper and lower extremities. finger nose finger test normal, heel gray test normal, romberg normal Initial Vital Signs Initial Vital Signs: Vital Signs Temperature 97.3 F L 08/29/20 11:00 Pulse Rate 90 08/29/20 11:00 Respiratory Rate 14 08/29/20 11:00 Blood Pressure 142/72 H 08/29/20 11:00 Pulse Oximetry 98 08/29/20 11:00 Scores NIH Stroke Scale Level of Conciousness: Alert, keenly responsive Ask month/age: Answers both questions correctly. Open/close eyes, close hand: Performs both tasks correctly Best gaze horizontal: Normal Visual tang: No visual loss Facial palsy: Normal symetrical movement Left arm drift: No drift for full 10 sec Right arm drift: No drift for full 10 sec Left leg drift: No drift for full 5 sec Right leg drift: No drift for full 5 sec Limb ataxia: Absent Sensory on face/arms/legs: Normal, no sensory loss Best language: No aphasia, normal Dysarthria: Normal Extinction or inattention: No abnormality Total NIH Stroke scale score: 0 Course Orders Ordered: ED Orders 08/29/20 11:11 CT head/brain wo con Stat EKG-12 Lead Stat 08/29/20 11:17 Basic Metabolic Panel Stat Complete Blood Count AUTO DIFF Stat Partial Thromboplastin Time Stat Prothrombin Time INR Stat Troponin & CK Cardiac Panel Stat 08/29/20 13:05 Urine Culture Stat Urine Drug Screen, Rapid Stat Urine Microscopic Stat Discontinued Medications Sodium Chloride (Normal Saline 0.9%) 1,000 mls @ 150 mls/hr IV CONT REN Last Admin: 08/29/20 12:12 Dose: Not Given Documented by: SARY Vital Signs Vital signs: Vital Signs - 8 hr 08/29/20 11:00 08/29/20 11:37 08/29/20 12:00 Temperature 97.3 F L Pulse Rate 90 82 72 Respiratory Rate 14 20 Blood Pressure 142/72 H Pulse Oximetry 98 97 96 08/29/20 12:30 08/29/20 13:00 08/29/20 13:06 Temperature Pulse Rate 74 78 98 H Respiratory Rate 16 18 22 Blood Pressure 168/83 H Pulse Oximetry 96 97 94 08/29/20 13:30 08/29/20 13:31 08/29/20 14:00 Temperature Pulse Rate 82 84 79 Respiratory Rate 26 H 25 H 21 Blood Pressure 140/84 146/81 H Pulse Oximetry 97 95 97 MDM - Neuro Symptoms/Deficit Lab Data Attestation: I reviewed the patient's lab results. Result diagrams: 08/29/20 11:17 08/29/20 11:17 Labs: Lab Results 08/29/20 08/29/20 08/29/20 Range/Units 11:17 11:17 11:17 WBC 7.7 (4.5-11.0) X10^3/uL RBC 4.94 (4.5-5.9) X10^6/uL Hgb 14.7 (13.5-17.5) g/dL Hct 44.7 (41-53) % MCV 90.5 (80-100) fL MCH 29.7 (26-34) PG MCHC 32.8 (30-36) % RDW 14.2 (11.6-14.8) % Plt Count 300 (150-400) X10^3/uL Neut % (Auto) 71.1 (50-75) % Lymph % (Auto) 14.3 L (25-40) % Ogle % (Auto) 11.6 (3-14) % Eos % (Auto) 2.5 (2-4) % Baso % (Auto) 0.5 (0-2) % Neut # (Auto) 5500 (4120-0346) /uL Lymph # (Auto) 1100 (4844-9745) /uL Ogle # (Auto) 900 (0-900) /uL Eos # (Auto) 200 (0-450) /uL Baso # (Auto) 0 (0-100) /uL PT 25.2 H (10.1-12.7) SECONDS INR 2.2 H (0.9-1.3) APTT 45 H D (26.4-36.2) SECONDS Sodium 136 L (137-145) mmol/L Potassium 4.0 (3.4-5.1) mmol/L Chloride 105 (98-107) mmol/L Carbon Dioxide 27 (22-32) mmol/L BUN 21 H (9-20) mg/dL Creatinine 1.13 (0.66-1.25) mg/dL Estimated GFR > 60.0 (>60) mL/min BUN/Creatinine Ratio 18.6 (6-22) Glucose 94 (80-110) mg/dL Calcium 8.8 (8.4-10.2) mg/dL Total Creatine Kinase 46 L (55-170) U/L CK-MB (CK-2) TNP CK-MB (CK-2) Rel Index TNP Troponin I < 0.012 (0.01-0.034) ng/mL Urine RBC (0-5/HPF) Urine WBC (0-5/HPF) Ur Squamous Epith Cells (0-5/HPF) Amorphous Sediment Urine Bacteria (None) Ur Culture Indicated? U Opiates 300ng/mL cut (Negative) Ur Oxycodone Screen (Negative) Urine Methadone Screen (Negative) Ur Barbiturates Screen (Negative) U Tricyclic Antidepress (Negative) Ur Phencyclidine Scrn (Negative) Ur Amphetamines Screen (Negative) U Methamphetamines Scrn (Negative) Ur MDMA Scrn (Ecstasy) (Negative) U Benzodiazepines Scrn (Negative) Urine Cocaine Screen (Negative) U Marijuana (THC) Screen (Negative) 08/29/20 08/29/20 Range/Units 13:05 13:05 WBC (4.5-11.0) X10^3/uL RBC (4.5-5.9) X10^6/uL Hgb (13.5-17.5) g/dL Hct (41-53) % MCV (80-100) fL MCH (26-34) PG MCHC (30-36) % RDW (11.6-14.8) % Plt Count (150-400) X10^3/uL Neut % (Auto) (50-75) % Lymph % (Auto) (25-40) % Ogle % (Auto) (3-14) % Eos % (Auto) (2-4) % Baso % (Auto) (0-2) % Neut # (Auto) (9092-5604) /uL Lymph # (Auto) (2590-9070) /uL Ogle # (Auto) (0-900) /uL Eos # (Auto) (0-450) /uL Baso # (Auto) (0-100) /uL PT (10.1-12.7) SECONDS INR (0.9-1.3) APTT (26.4-36.2) SECONDS Sodium (137-145) mmol/L Potassium (3.4-5.1) mmol/L Chloride (98-107) mmol/L Carbon Dioxide (22-32) mmol/L BUN (9-20) mg/dL Creatinine (0.66-1.25) mg/dL Estimated GFR (>60) mL/min BUN/Creatinine Ratio (6-22) Glucose (80-110) mg/dL Calcium (8.4-10.2) mg/dL Total Creatine Kinase (55-170) U/L CK-MB (CK-2) CK-MB (CK-2) Rel Index Troponin I (0.01-0.034) ng/mL Urine RBC None seen (0-5/HPF) Urine WBC 1-5/hpf (0-5/HPF) Ur Squamous Epith Cells 0-1 /hpf (0-5/HPF) Amorphous Sediment 1+ Urine Bacteria Occasional (0-1) (None) Ur Culture Indicated? Specimen cultured U Opiates 300ng/mL cut Negative (Negative) Ur Oxycodone Screen Negative (Negative) Urine Methadone Screen Negative (Negative) Ur Barbiturates Screen Negative (Negative) U Tricyclic Antidepress Negative (Negative) Ur Phencyclidine Scrn Negative (Negative) Ur Amphetamines Screen Negative (Negative) U Methamphetamines Scrn Negative (Negative) Ur MDMA Scrn (Ecstasy) Negative (Negative) U Benzodiazepines Scrn Negative (Negative) Urine Cocaine Screen Negative (Negative) U Marijuana (THC) Screen Negative (Negative) Urine Dip Bedside Urine Glucose Negative Bedside Urine Bilirubin - Negative Bedside Urine Ketone - Negative Urine Specific [place] 1.015 Bedside Urine Occult Blood - Negative Bedside Urine pH 6 Bedside Urine Protein - Negative Bedside Urine Urobilinogen - Negative Bedside Urine Nitrite - Negative Bedside Urine Leukocytes +/- [address] scan - head: Radiologist's Impression: [address] [address] [address] Scan Report Signed Patient: Nestor Mercedes CMR#: [id number] : 8Acct:[id number] Age/Sex: 80 / MDate of Service: 08/29/20 Loc: ED Accession Number: [id number] Procedure: CT head/brain wo con Ordering Provider: Nahomi Chavira D.O. PROCEDURE: CT HEAD/BRAIN WO CON INDICATIONS: lightheaded/vision problems for several days TECHNIQUE: Noncontrast 4.5 mm thick angled axial sections acquired from the foramen magnum to the vertex, with coronal and sagittal reformats. For radiation dose reduction, the following was used: automated exposure control, adjustment of mA and/or kV according to patient size. COMPARISON: [facility], MR, MR STROKE, 07/19/2020, 9:25. [facility], CT, CT STROKE, 07/18/2020, 16:47. [facility], CT, CT ANGIO HEAD AND NECK, 07/18/2020, 16:47. [facility], CT, CT ANGIO HEAD AND NECK, 06/13/2020, 18:59. [facility], CT, CT HEAD/BRAIN WO CON, 06/13/2020, 18:04. FINDINGS: Image quality: Excellent. CSF spaces: Basal cisterns are patent. No extra-axial fluid collections. The ventricles are symmetric in size and shape. Brain: No intracranial bleeds or masses. There is cerebral volume loss for age, with resultant ventricular and sulcal prominence. There are periventricular and deep white matter chronic small vessel ischemic changes. There is intracranial internal carotid artery atherosclerosis. Skull and face: Calvarium and visualized facial bones appear intact, without suspicious lesions. Sinuses: Visualized sinuses and mastoids are clear. IMPRESSION: No acute intracranial process is seen. No acute intracranial hemorrhage is seen. Note is made of age-appropriate brain parenchymal volume loss and chronic small vessel ischemic changes. Dictated by: Rafal Jackson M.D. on 08/29/2020 at 10:43 Approved by: Rafal Jackson M.D. on 08/29/2020 at 10:44 Brain MRI: Radiologist's Impression: [address] [address] Magnetic Resonance Report Signed Patient: Nestor Mercedes CMR#: [id number] : 8Acct:[id number] Age/Sex: 80 / MDate of Service: 07/18/20 Loc: [id number] Accession Number: [id number] Procedure: MR stroke Ordering Provider: Pau Forrester PROCEDURE: MR STROKE Pre- and post-contrast brain MRI, non-contrast brain MR angiogram, pre- and postcontrast neck MR angiogram INDICATIONS: left hand weakness, ?TIA/CVA TECHNIQUE: Brain: Noncontrast axial T1 spin echo, axial T2 fast spin echo, sagittal and axial FLAIR, coronal T2 fast spin echo, axial gradient echo, axial diffusion and ADC through the brain. After the administration of contrast, axial 3D VIBE of the cranial vasculature and brain. Brain MRA: Non-contrast 3-D time of flight MR angiogram, with multiple stjldgg-mkrtvuxxm-qjvxejplgl (MIP) reformats performed. Neck MRA: Axial and sagittal TruFISP through the neck. Coronal dynamic MR angiogram during administration of contrast in the arterial and venous phases, with 3-dimenstional tysbosq-iqjjwxvag-odbblwexaf (MIP) reformats constructed from subtraction images. COMPARISON: [facility], CT, CT ANGIO HEAD AND NECK, 07/18/2020, 16:47. [facility], CT, CT STROKE, 07/18/2020, 16:47. FINDINGS: Image quality: Excellent. BRAIN: CSF spaces: Ventricles are normal in size and shape. Basal cisterns are patent. No extra-axial fluid collections. Brain: No intracranial bleeds or mass effects. Duenas-white matter interface is normal. Diffusion weighted images show no acute ischemic insults. Brainstem appears normal. Brain parenchymal volume loss is seen. Chronic small vessel ischemic change is seen. Normal intravascular flow voids are present. No abnormal intracranial enhancement. Skull and face: Calvarial marrow signal is normal. Orbits appear normal. Note is made of bilateral lens replacements. Sinuses: Focal mucosal thickening is seen involving the left anterior ethmoid air cells. There is relatively prominent opacification seen of the sphenoid sinuses. Mild mucosal thickening is seen elsewhere within the paranasal sinuses. No abnormal fluid is seen within the mastoid air cells. BRAIN MR ANGIOGRAM: Anterior circulation: Intracranial internal carotid arteries are normal in size and enhancement. The flow within the paired anterior cerebral arteries is normal and symmetric. The flow within the middle cerebral arteries is normal and symmetric. The anterior communicating artery is not well seen. No stenoses, occlusions, or aneurysms. Posterior circulation: The visualized portions of the vertebral arteries demonstrate normal caliber, and join to form a normal appearing basilar artery. The flow within the posterior cerebral arteries is normal and symmetric. No stenoses, occlusions, or aneurysms. NECK MR ANGIOGRAM: Carotids: Great vessels demonstrate a conventional anatomy as they arise from the aortic arch. The origins of the common carotid arteries appear patent. The calibers and courses of both common carotid arteries are normal. The bifurcation regions appear normal bilaterally. The internal carotid arteries demonstrate normal course and caliber. Posterior circulation: The origins of the vertebral arteries appear patent. More superior portions of both vertebral arteries demonstrate normal course and caliber, and join to form a normal appearing basilar artery. Miscellaneous: Subclavian arteries appear patent. Pre-contrast images through the neck show no soft tissue abnormalities. IMPRESSION: BRAIN MRI: No findings of acute or subacute infarction can be seen. No masses or abnormal enhancement can be seen. Note is made of age-appropriate brain parenchymal volume loss and chronic small vessel ischemic changes. Paranasal sinus disease is seen. BRAIN MR ANGIOGRAM: No significant intracranial arterial abnormality is seen. NECK MR ANGIOGRAM: Within the arteries of the neck, no hemodynamically significant stenosis can be seen. Dictated by: Rafal Jackson M.D. on 07/19/2020 at 10:10 Approved by: Rafal Jackson M.D. on 07/19/2020 at 10:14 Echo on 07/19/2020: Radiologist's Impression: Ejection fraction is 55-60% with no significant change in LVEF since prior exam. Mild dilation of right ventricle, right ventricular systolic function lower limits of normal with mild to moderate mitral regurg. Aortic valve is heavily calcified and moderately reduced leaflet mobility. There is mild to moderate aortic stenosis as well as tricuspid regurgitation with no change in the TR severity from prior. ECG Data Attestation: I personally reviewed and interpreted this ECG as follows: Prior ECG tracings: available for review Interpretation: Rate 84, HI 86 QTC of 427 with a atrial fibrillation no ST elevation appreciated, no depression noted. Prior EKGs also show atrial fibrillation MDM Narrative Medical decision making narrative: Discussed with patient he is currently appropriately anticoagulated, he is on appropriate medications, discussed with patient he defers angiography today. He had a full workup with MRI, echo and evaluation on July 18 and and has follow-up with Neurology on Monday. I did offer observation but patient defers unclear if this is truly TIAs or if he is having possibly other neurologic causes or Ophthalmology causes of his blurred vision he has had bilateral cataract surgery and states he also has some macular degeneration although that would be unlikely for any acute change in his vision. He does have risk and is chronically in atrial fibrillation from reviewing his prior EKGs in visit. Patient states that he feels well to return home and at this time is going to continue his home medications. Stroke Core Measures Exclusion Criteria TPA in CVA: Symptom Onset >3 or 4.5 Hours Contraindications for TPA in CVA: INR>1.7 Discharge Plan Departure Patient Disposition: Home Clinical Impression: Blurred vision, Light-headedness Discharge Date/Time: 08/29/20 14:13 Instructions: DI for Transient Ischemic Attack Activity Restrictions/Additional Instructions: Follow up with the neurologist at your appointment on Monday. Your INR today is 2.2, your other labs do not show any major abnormalities. Your CT today is negative, your MRI from July does not show any acute changes or abnormalities. Continue home medications as prescribed. Prescriptions: No Action multivitamin [Multiple Vitamins] 1 EACH tablet 1 tab PO DAILY Qty: 0 RF: 0 cholecalciferol (vitamin D3) [Vitamin D3] 2,000 UNIT tablet 2,000 unit PO DAILY Qty: 0 RF: 0 warfarin 5 mg tablet See Rx Instructions .ROUTE .COMPLEX Qty: 90 RF: 3 tamsulosin 0.4 mg capsule 0.4 mg PO BEDTIME Qty: 90 RF: 0 finasteride 5 mg tablet 5 mg PO Q OTHER DAY Qty: 90 RF: 3 clobetasol 0.05 % ointment 1 applic topical BID PRN (Reason: as directed) Qty: 30 RF: 3 metoprolol succinate 100 MG tablet extended release 24 hr 100 mg PO QAM RF: 0 Iron High Potency 27 mg tablet 27 mg PO DAILY RF: 0 Ocuvite 30unit 5mg 150mg 1 cap PO DAILY RF: 0 metoprolol succinate [Toprol XL] 25 mg tablet extended release 24 hr 25 mg PO BEDTIME RF: 0 atorvastatin 40 mg tablet 40 mg PO BEDTIME Qty: 30 RF: 0 Referrals: Oleksandr Pinto DO [Primary Care Provider] -
[2020-08-29 13:36] LABS: RBC Urine None Seen (0-5/HPF)
[2020-08-29 13:43] LABS: UR Morphine/Opiate cutoff 300 Negative (Negative); Ur Creatinine Normal (Normal); Ur Specific Gravity Normal (Normal); Urine Amphetamines Negative (Negative); Urine Barbiturates Negative (Negative); Urine Benzodiazepines Negative (Negative); Urine Cocaine Negative (Negative); Urine MDMA Negative (Negative); Urine Methadone Negative (Negative); Urine Methamphetamines Negative (Negative); Urine Oxycodone Negative (Negative); Urine Phencyclidine Negative (Negative); Urine Tetrahydrocannabinol Negative (Negative); Urine Tricyclic Antidepressant Negative (Negative); Urine pH Normal (Normal)
[2020-08-29 13:52] LABS: Amorphous Sediment Urine 1+; Bacteria Urine Occasional (0-1); Culture Indicated Urine Specimen Cultured; Squamous Epithelial Cell Urine 0-1 /HPF (0-5/HPF); WBC Urine 1-5/HPF (0-5/HPF)
== END 2020-08-29 14:13 | disposition home or self-care (01) ==
PROVIDERS: Emergency Provider Emergency Medicine; PCP Family Medicine
DX: H53.2 Diplopia (principal); R42 Dizziness and giddiness; I48.91 Unspecified atrial fibrillation; Z79.01 Long term (current) use of anticoagulants
CPT/HCPCS: 36415; 70450; 80048; 80305; 81003; 81015; 82550; 84484; 85025; 85610; 85730; 87086; 93005; 99284

== ENCOUNTER → 2020-09-03 07:53 | Outpatient (CLI) | payer MEDICARE, OTHER, SELFPAY ==
[2020-09-03 08:56] LABS: Add Manual Diff / Slide Review NO; Basophils Absolute Auto 0 /uL (0-100); Basophils Percent Auto 0.6 % (0-2); Eosinophils Absolute Auto 200 /uL (0-450); Eosinophils Percent Auto 3.2 % (2-4); Hematocrit 44.4 % (41-53); Lymphocytes Absolute Auto 1000 /uL (1100-4500); Lymphocytes Percent Auto 17.3 % (25-40); Mean Corpuscular HGB Conc 33.9 % (30-36); Mean Corpuscular Hemoglobin 30.5 PG (26-34); Monocytes Absolute Auto 700 /uL (0-900); Neutrophils Absolute Auto 3900 /uL (1500-7000); Neutrophils Percent Auto 66.9 % (50-75); Platelet Count 291 X10^3/uL (150-400); Red Blood Cell Count 4.93 X10^6/uL (4.5-5.9); Red Cell Distribution Width 14.5 % (11.6-14.8); White Blood Cell Count 5.8 X10^3/uL (4.5-11.0)
[2020-09-03 09:25] LABS: Alanine Aminotransferase 28 IU/L (<50); Albumin 3.7 g/dL (3.5-5.0); Albumin Globulin Ratio 1.2 (1.0-2.8); Alkaline Phosphatase 86 U/L (38-126); Aspartate Aminotransferase 30 IU/L (17-59); BUN Creatinine Ratio 18.3 (6-22); Bilirubin Total 1.5 mg/dL (0.2-1.3); Blood Urea Nitrogen 20 mg/dL (9-20); Calcium 8.9 mg/dL (8.4-10.2); Carbon Dioxide 32 mmol/L (22-32); Chloride 103 mmol/L (98-107); Cholesterol 101 mg/dL (140-199); Estimated Glomerular Filt Rate > 60.0 mL/min (>60); Glucose 92 mg/dL (80-110); HDL Cholesterol 31 mg/dL (40-60); HEMOLYSIS < 15 (0-50); LDL Cholesterol Calculated 47 mg/dL (<100); Potassium 3.8 mmol/L (3.4-5.1); Sodium 138 mmol/L (137-145); Total Protein 6.7 g/dL (6.3-8.2); Triglycerides 116 mg/dL (35-150)
[2020-09-03 09:57] LABS: Cortisol AM (Before 10AM) 12.7 ug/dL (4.46-22.7)
[2020-09-04 14:42] LABS: Free Kappa Lt Chains, Serum 21.4 mg/L (3.3-19.4); Free Lambda Lt Chains,Serum 21.8 mg/L (5.7-26.3); SS A Ro Sjogrens Antibody < 0.2 AI (0.0-0.9); SS B La Sjogrens Antibody < 0.2 AI (0.0-0.9)
[2020-09-07 14:11] LABS: Beta Globulin, Ur 17.3 % (.); Gamma Globulin, Ur 31.8 % (.); M-Spike % Not Observed % (Not Observed); Urine Total Protein 9.3 mg/dL (Not Estab.)
[2020-09-07 15:10] LABS: Albumin 3.3 g/dL (2.9-4.4); Alpha 1 Globulin 0.2 g/dL (0.0-0.4); Alpha 2 Globulin 0.8 g/dL (0.4-1.0); Gamma Globulin 0.9 g/dL (0.4-1.8); Protein, Total 6.2 g/dL (6.0-8.5)
== END ==
PROVIDERS: PCP Family Medicine; Referring Provider Family Medicine; Visit Provider Student in an Organized Health Care Education/Training Program
DX: R42 Dizziness and giddiness (principal); R55 Syncope and collapse; E55.9 Vitamin D deficiency, unspecified; E78.5 Hyperlipidemia, unspecified; E78.6 Lipoprotein deficiency; I10 Essential (primary) hypertension; I48.20 Chronic atrial fibrillation, unspecified; I48.91 Unspecified atrial fibrillation
CPT/HCPCS: 36415; 80053; 80061; 82306; 82533; 83883; 84155; 84156; 84165; 84166; 85025; 86235

== ENCOUNTER 2020-10-05 12:59 | Emergency (ER) | payer MEDICARE, OTHER, SELFPAY ==
[2020-10-05 13:05] VITALS: BP 183/79; PULSE 69; RESP 16; TEMP 37; O2SAT 98; BMI 23.7
--- NOTE | 2020-10-05 13:10 | DI.CT.S_ITS ---
PROCEDURE: CT STROKE INDICATIONS: code stroke TECHNIQUE: Noncontrast 4.5 mm thick angled axial sections acquired from the foramen magnum to the vertex, with coronal reformats. For radiation dose reduction, the following was used: automated exposure control, adjustment of mA and/or kV according to patient size. COMPARISON: [facility], CT, CT STROKE, 07/18/2020, 16:47. [facility], CT, CT STROKE, 02/23/2020, 19:29. FINDINGS: Image quality: Excellent. CSF spaces: Basal cisterns are patent. No extra-axial fluid collections. The ventricles are symmetric in size and shape. Brain: No intracranial bleeds or masses. There is cerebral volume loss for age, with resultant ventricular and sulcal prominence. There are periventricular and deep white matter chronic small vessel ischemic changes. There is intracranial internal carotid artery atherosclerosis. Skull and face: Calvarium and visualized facial bones appear intact, without suspicious lesions. Sinuses: Visualized sinuses and mastoids are clear. IMPRESSION: No acute disease. Findings immediately called to the emergency room physician caring for the patient at 1:22 p.m. This study fulfills neurological imaging criteria for inclusion or exclusion of acute stroke therapies based on available published neurological guidelines. Dictated by: Ishan Osorio M.D. on 10/05/2020 at 13:24 Approved by: Ishan Osorio M.D. on 10/05/2020 at 13:28
[2020-10-05 13:31] VITALS: PULSE 82; RESP 18; O2SAT 98
[2020-10-05 13:34] LABS: Add Manual Diff / Slide Review NO; Basophils Absolute Auto 0 /uL (0-100); Basophils Percent Auto 0.6 % (0-2); Eosinophils Absolute Auto 200 /uL (0-450); Eosinophils Percent Auto 2.5 % (2-4); Hematocrit 42.3 % (41-53); Hemoglobin 14.1 g/dL (13.5-17.5); Lymphocytes Absolute Auto 1100 /uL (1100-4500); Lymphocytes Percent Auto 13.9 % (25-40); Mean Corpuscular HGB Conc 33.3 % (30-36); Mean Corpuscular Hemoglobin 30.1 PG (26-34); Mean Corpuscular Volume 90.3 fL (80-100); Monocytes Absolute Auto 800 /uL (0-900); Monocytes Percent Auto 9.7 % (3-14); Neutrophils Absolute Auto 5800 /uL (1500-7000); Neutrophils Percent Auto 73.3 % (50-75); Platelet Count 254 X10^3/uL (150-400); Red Blood Cell Count 4.69 X10^6/uL (4.5-5.9); Red Cell Distribution Width 14.2 % (11.6-14.8); White Blood Cell Count 7.9 X10^3/uL (4.5-11.0)
[2020-10-05] MEDS: SODIUM CHLORIDE 0.9% 1,000 ML 125 ML IV (13:37)
[2020-10-05 13:40] LABS: Prothrombin Time 22.5 SECONDS (10.1-12.7)
--- NOTE | 2020-10-05 13:41 | ED.GENADULT ---
HPI - General Adult General Chief complaint: Dizziness Stated complaint: Double Vision, Light Headed Time Seen by Provider: 10/05/20 13:10 Source: patient Mode of arrival: Ambulatory Limitations: no limitations History of Present Illness HPI narrative: Patient is an 80-year-old male who states he has had TIAs in the past who was at home today when he noticed that he was having double vision. He states that the symptoms were fairly sudden onset but then gradually improved to the point that he completely resolved after approximately 20 minutes. He thought that he was having another TIA so he came into the emergency department. Symptoms started approximately 1.5 hours prior to arrival. Code stroke was called upon his arrival given his symptoms. Patient is on anticoagulation. He states he did not fall. Does have history of atrial fibrillation he states that several months ago the same symptoms happened when he was admitted to the hospital at this is where he was told that he probably had a TIA. Related Data Home Medications Medication Instructions Recorded Confirmed multivitamin [Multiple Vitamins] 1 tab PO DAILY #0 03/06/13 09/24/20 cholecalciferol (vitamin D3) 2,000 unit PO DAILY #0 tab 08/03/16 09/24/20 [Vitamin D3] Iron High Potency 27 mg PO DAILY 04/09/19 09/24/20 Ocuvite 30unit 5mg 150mg 1 cap PO DAILY 04/09/19 09/24/20 metoprolol succinate 100 mg PO QAM 04/09/19 09/24/20 metoprolol succinate [Toprol XL] 25 mg PO BEDTIME 07/18/20 09/24/20 Previous Rx's Medication Instructions Recorded finasteride 5 mg tablet 5 mg PO Q OTHER DAY #90 tab 11/08/19 clobetasol 0.05 % topical ointment 1 applic TOPICAL BID PRN #30 gram 12/10/19 warfarin 5 mg tablet See Rx Instructions .ROUTE 12/25/19 .COMPLEX #90 tab atorvastatin 40 mg PO BEDTIME #30 tab 07/19/20 tamsulosin 0.4 mg capsule 0.4 mg PO BEDTIME #90 cap 07/29/20 Allergies Allergy/AdvReac Type Severity Reaction Status Date / Time No Known Drug Allergies Allergy Verified 10/05/20 13:07 Review of Systems Constitutional Constitutional: Denies fever(s) and Denies headache(s) Eyes Eyes: Reports diplopia and Denies eye pain ENT Ears, Nose, Mouth, and Throat: Denies vertigo, Denies dizziness, Denies headache(s), Reports disequilibrium and Denies sinus pain Cardiovascular Cardiovascular: Denies chest pain and Denies dyspnea Respiratory Respiratory: Denies dyspnea Gastrointestinal Gastrointestinal: Denies abdominal pain, Denies nausea and Denies vomiting Genitourinary Genitourinary: Denies dysuria Genitourinary: Denies dysuria Musculoskeletal Musculoskeletal: Denies arthralgias and Denies myalgias Integumentary/Breasts Skin/Breast: Denies rash Neurologic Neurologic: Denies abnormal speech, Denies behavioral changes, Denies confusion, Denies vertigo, Denies dizziness, Denies headache(s), Denies tingling and Reports disequilibrium Comments: Lightheaded Psychiatric Psychiatric: Denies behavioral changes and Denies confusion Hematologic/Lymphatic Comments: On anticoagulation Allergic/Immunologic Allergic/Immunologic: Denies urticaria Patient History Medical History Acute dehydration Atrial fibrillation Atrial fibrillation with rapid ventricular response Atypical chest pain Balance problem 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) Cervical somatic dysfunction Chest pressure Chronic atrial fibrillation (01/02/18) Chronic bilateral low back pain without sciatica Cranial somatic dysfunction Diplopia Erectile dysfunction Essential hypertension (02/16/16) Foot stiffness History of elevated PSA Incomplete emptying of bladder (02/16/16) Left arm weakness Low HDL (under 40) Orthostatic lightheadedness Pelvic somatic dysfunction Pleural effusion Segmental and somatic dysfunction of lumbar region Segmental and somatic dysfunction of rib cage Segmental and somatic dysfunction of sacral region Segmental and somatic dysfunction of thoracic region Somatic dysfunction of both lower extremities Stiff neck Vasovagal near syncope Vitamin D deficiency Surgical History Hx of cholecystectomy Status post cholecystectomy Family History Mother CVA (cerebral vascular accident) Father Diabetes mellitus Brother Renal failure Social History marital status: number of children: 1 household members: none occupational status: previously employed Previous occupational history: [employer] Smoking Status: Former smoker alcohol intake: former caffeine: Yes Smoking Status: Former smoker alcohol intake frequency: holidays/special occasions only Substance Use Type: does not use Exam Initial Vital Signs Initial Vital Signs: Vital Signs Temperature 98.6 F 10/05/20 13:05 Pulse Rate 69 10/05/20 13:05 Respiratory Rate 16 10/05/20 13:05 Blood Pressure 183/79 H 10/05/20 13:05 Pulse Oximetry 98 10/05/20 13:05 Const General: cooperative, healthy appearing, comfortable, well developed and well groomed Limitations: mental status not altered HENIL Head: normal to inspection and normocephalic Eyes General: appearance normal, both eyes and all related structures Resp Effort & Inspection: normal respiratory effort Auscultation: clear to auscultation bilaterally Cardio Rate: regular rate Rhythm: abnormal rhythm Pulses: radial pulses present GI Inspection: non-distended Palpation: soft Skin Lesions: no lesions Rashes: no rashes Neuro General: patient alert, patient awake and patient oriented x3 Cranial Nerves: CN's II-XI intact bilaterally Cognition: normal cognition Speech: speech normal Motor: muscle tone normal throughout Sensory Exam: no sensory deficits noted Extrem General: normal to inspection and capillary refill normal Psych Appearance: grossly normal and well kempt Scores GCS [place] coma scale eye opening: Spontaneous [place] coma scale verbal response: Orientated [place] coma scale motor response: Obey commands Rubin coma scale total score: 15 NIH Stroke Scale Level of Conciousness: Alert, keenly responsive Ask month/age: Answers both questions correctly. Open/close eyes, close hand: Performs both tasks correctly Best gaze horizontal: Normal Visual tang: No visual loss Facial palsy: Normal symetrical movement Left arm drift: No drift for full 10 sec Right arm drift: No drift for full 10 sec Left leg drift: No drift for full 5 sec Right leg drift: No drift for full 5 sec Limb ataxia: Absent Sensory on face/arms/legs: Normal, no sensory loss Best language: No aphasia, normal Dysarthria: Normal Extinction or inattention: No abnormality Total NIH Stroke scale score: 0 Course Orders Ordered: ED Orders 10/05/20 13:10 CT Stroke Stat 10/05/20 13:16 EKG-12 Lead Stat 10/05/20 13:25 Complete Blood Count AUTO DIFF Stat Comprehensive Metabolic Panel Stat Lipase Stat Partial Thromboplastin Time Stat Prothrombin Time INR Stat Troponin & CK Cardiac Panel Stat Discontinued Medications Sodium Chloride (Normal Saline 0.9%) 1,000 mls @ 125 mls/hr IV CONT REN Last Admin: 10/05/20 13:37 Dose: 125 mls/hr Documented by: PARUL Vital Signs Vital signs: Vital Signs - 8 hr 10/05/20 13:05 10/05/20 13:31 10/05/20 14:00 Temperature 98.6 F Pulse Rate 69 82 82 Respiratory Rate 16 18 21 Blood Pressure 183/79 H Pulse Oximetry 98 98 97 10/05/20 14:27 10/05/20 14:28 10/05/20 14:33 Temperature Pulse Rate 79 72 Respiratory Rate 23 16 Blood Pressure 144/70 H 144/70 H Pulse Oximetry 97 98 Medical Decision Making Lab Data Lab results reviewed: Yes I reviewed the patient's lab results. Result diagrams: 10/05/20 13:25 10/05/20 13:25 Labs: Lab Results 10/05/20 10/05/20 10/05/20 Range/Units 13:25 13:25 13:25 WBC 7.9 (4.5-11.0) X10^3/uL RBC 4.69 (4.5-5.9) X10^6/uL Hgb 14.1 (13.5-17.5) g/dL Hct 42.3 (41-53) % MCV 90.3 (80-100) fL MCH 30.1 (26-34) PG MCHC 33.3 (30-36) % RDW 14.2 (11.6-14.8) % Plt Count 254 (150-400) X10^3/uL Neut % (Auto) 73.3 (50-75) % Lymph % (Auto) 13.9 L (25-40) % [place] % (Auto) 9.7 (3-14) % Eos % (Auto) 2.5 (2-4) % Baso % (Auto) 0.6 (0-2) % Neut # (Auto) 5800 (7234-1634) /uL Lymph # (Auto) 1100 (9533-5328) /uL [place] # (Auto) 800 (0-900) /uL Eos # (Auto) 200 (0-450) /uL Baso # (Auto) 0 (0-100) /uL PT 22.5 H (10.1-12.7) SECONDS INR 2.0 H (0.9-1.3) APTT 44 H (26.4-36.2) SECONDS Sodium 136 L (137-145) mmol/L Potassium 4.7 (3.4-5.1) mmol/L Chloride 107 (98-107) mmol/L Carbon Dioxide 24 (22-32) mmol/L BUN 24 H (9-20) mg/dL Creatinine 1.01 (0.66-1.25) mg/dL Estimated GFR > 60.0 (>60) mL/min BUN/Creatinine Ratio 23.8 H (6-22) Glucose 132 H (80-110) mg/dL Calcium 8.8 (8.4-10.2) mg/dL Total Bilirubin 1.2 (0.2-1.3) mg/dL AST 34 (17-59) IU/L ALT 23 (<50) IU/L Alkaline Phosphatase 84 (38-126) U/L Total Creatine Kinase 61 (55-170) U/L CK-MB (CK-2) TNP CK-MB (CK-2) Rel Index TNP Troponin I < 0.012 (0.01-0.034) ng/mL Total Protein 7.1 (6.3-8.2) g/dL Albumin 3.9 (3.5-5.0) g/dL Globulin 3.2 (1.7-4.1) g/dL Albumin/Globulin Ratio 1.2 (1.0-2.8) Lipase 338 H (23-300) U/L Point of Care Testing Glucose POC 130 Point of care testing: Point of Care Testing Glucose POC [address] scan - head: Radiologist's Impression: [address] [id number] Scan ReportSigned Patient: Nestor Mercedes CMR#: [id number]: 1940cct:[id number]/Sex: 80 / MDate of Service: 10/05/20Loc: EDAccession Number: [id number] Procedure: CT Stroke Ordering Provider: Mohan Riggins D.O. PROCEDURE: CT STROKE INDICATIONS: code stroke TECHNIQUE: Noncontrast 4.5 mm thick angled axial sections acquired from the foramen magnum to the vertex, with coronal reformats. For radiation dose reduction, the following was used: automated exposure control, adjustment of mA and/or kV according to patient size. COMPARISON: [facility], CT, CT STROKE, 07/18/2020, 16:47. [facility], CT, CT STROKE, 02/23/2020, 19:29. FINDINGS: Image quality: Excellent. CSF spaces: Basal cisterns are patent. No extra-axial fluid collections. The ventricles are symmetric in size and shape. Brain: No intracranial bleeds or masses. There is cerebral volume loss for age, with resultant ventricular and sulcal prominence. There are periventricular and deep white matter chronic small vessel ischemic changes. There is intracranial internal carotid artery atherosclerosis. Skull and face: Calvarium and visualized facial bones appear intact, without suspicious lesions. Sinuses: Visualized sinuses and mastoids are clear. IMPRESSION: No acute disease. Findings immediately called to the emergency room physician caring for the patient at 1:22 p.m. This study fulfills neurological imaging criteria for inclusion or exclusion of acute stroke therapies based on available published neurological guidelines. Dictated by: Ishan Osorio M.D. on 10/05/2020 at 13:24 Approved by: Ishan Osorio M.D. on 10/05/2020 at 13:28 ECG Data Attestation: I personally reviewed and interpreted this ECG as follows: Prior ECG tracings: not available for review Interpretation: Atrial fibrillation Ventricular rate is [address] T wave changes MDM Narrative Medical decision making narrative: Asymptomatic the time I arrival. Patient not a tPA candidate secondary to the fact that he has a resolution of his symptoms and he is on anticoagulation. I did talk with Dr. Pinto who is his primary provider who agreed that patient could be discharged home with follow-up in the clinic without further evaluation. This could potentially been a TIA however he has had extensive workup just several months ago for the exact same symptoms. I did discuss this with the patient. We did discuss follow-up with his primary provider. Expressed understanding and agreement. Discharge Plan Departure Patient Disposition: Home Clinical Impression: Brain TIA, Atrial fibrillation, Diplopia Instructions: DI for Transient Ischemic Attack Activity Restrictions/Additional Instructions: I recommend that you continue all of your medications as directed. Keep your scheduled appointment with your primary doctor on October 14. Return to the emergency department for any new or worsening symptoms Prescriptions: No Action multivitamin [Multiple Vitamins] 1 EACH tablet 1 tab PO DAILY Qty: 0 RF: 0 cholecalciferol (vitamin D3) [Vitamin D3] 2,000 UNIT tablet 2,000 unit PO DAILY Qty: 0 RF: 0 warfarin 5 mg tablet See Rx Instructions .ROUTE .COMPLEX Qty: 90 RF: 3 tamsulosin 0.4 mg capsule 0.4 mg PO BEDTIME Qty: 90 RF: 0 finasteride 5 mg tablet 5 mg PO Q OTHER DAY Qty: 90 RF: 3 clobetasol 0.05 % ointment 1 applic topical BID PRN (Reason: as directed) Qty: 30 RF: 3 metoprolol succinate 100 MG tablet extended release 24 hr 100 mg PO QAM RF: 0 Iron High Potency 27 mg tablet 27 mg PO DAILY RF: 0 Ocuvite 30unit 5mg 150mg 1 cap PO DAILY RF: 0 metoprolol succinate [Toprol XL] 25 mg tablet extended release 24 hr 25 mg PO BEDTIME RF: 0 atorvastatin 40 mg tablet 40 mg PO BEDTIME Qty: 30 RF: 0 Referrals: Oleksandr Pitno DO [Primary Care Provider] -
[2020-10-05 13:43] LABS: PTT Partial Thromboplastin Tim 44 SECONDS (26.4-36.2)
[2020-10-05 13:51] LABS: Alanine Aminotransferase 23 IU/L (<50); Albumin 3.9 g/dL (3.5-5.0); Albumin Globulin Ratio 1.2 (1.0-2.8); Alkaline Phosphatase 84 U/L (38-126); Aspartate Aminotransferase 34 IU/L (17-59); BUN Creatinine Ratio 23.8 (6-22); Bilirubin Total 1.2 mg/dL (0.2-1.3); Blood Urea Nitrogen 24 mg/dL (9-20); Calcium 8.8 mg/dL (8.4-10.2); Carbon Dioxide 24 mmol/L (22-32); Chloride 107 mmol/L (98-107); Creatine Kinase 61 U/L (55-170); Estimated Glomerular Filt Rate > 60.0 mL/min (>60); Globulin 3.2 g/dL (1.7-4.1); Glucose 132 mg/dL (80-110); Lipase 338 U/L (23-300); Potassium 4.7 mmol/L (3.4-5.1); Sodium 136 mmol/L (137-145); Total Protein 7.1 g/dL (6.3-8.2)
[2020-10-05 13:52] LABS: HEMOLYSIS 61 (0-50)
[2020-10-05 13:59] LABS: Troponin I < 0.012 ng/mL (0.01-0.034)
[2020-10-05 14:00] VITALS: PULSE 82; RESP 21; O2SAT 97
[2020-10-05 14:27] VITALS: PULSE 79; RESP 23; O2SAT 97
[2020-10-05 14:28] VITALS: BP 144/70
[2020-10-05 14:33] VITALS: BP 144/70; PULSE 72; RESP 16; O2SAT 98
--- NOTE | 2020-10-14 07:41 | PC.NURSE ---
1433 Normal Saline 125/hr stopped total volume infused 125ml
== END 2020-10-05 14:34 | disposition home or self-care (01) ==
PROVIDERS: Emergency Provider Emergency Medicine; Family Provider Family Medicine; PCP Family Medicine
DX: G45.9 Transient cerebral ischemic attack, unspecified (principal); I48.91 Unspecified atrial fibrillation; H53.2 Diplopia
CPT/HCPCS: 36415; 70450; 80053; 82550; 82962; 83690; 84484; 85025; 85610; 85730; 93005; 93010; 96360; 99284

== ENCOUNTER → 2020-10-14 13:35 | Outpatient (CLI) | payer MEDICARE, OTHER, SELFPAY ==
--- NOTE | 2020-10-14 | DI.ECHO.S_ITS ---
[facility] +---------+ [facility] +---------+ : : [address] : : : : [id number] : : : : Phone: [phone] Echocardiogram Report + + :Name: DOMINIC AGUILAR Study Date: 10/14/2020 Height: 73 in : :[facility] Weight: 160 lb : : Gender: Male BSA: 2.0 m2 : :: 1940 Age: 80 yrs BP: 142/90 mmHg: :Reason For Study: AORTIC STENOSIS : :Ordering Physician: YONIS, : :REJI Performed By: Adelina Guajardo : :Referring: REJI GRANT : + + Interpretation Summary 1) Normal left ventricular thickness, size, wall motion, and systolic function (EF 60-65%). 2) Mildly enlarged right ventricular size with normal function. 3) The left atrium is severely dilated. The right atrium is moderately dilated. 4) There is calcific moderate aortic stenosis (valve area 1.2cm2, mean gradient 16mmHg, severity ratio 1.2cm2). 5) The ascending aorta is mildly enlarged at 4.1cm. 6) Compared to the Echo done 07/19/2020, no significant change. Procedure: A two-dimensional transthoracic echocardiogram with color flow and Doppler was performed. The study quality was technically adequate. Comparison is made with the echocardiogram of 07/19/2020. The patient was in atrial fibrillation with heart rates between 79-104 bpm during the exam. Left Ventricle: The left ventricle is normal in size and wall thickness. The ejection fraction is estimated to be 60-65%. Left ventricular systolic function appears normal without focal wall motion abnormalities. Diastolic function could not be accurately assessed due to atrial fibrillation. Right Ventricle: The right ventricle is mildly dilated. The right ventricular systolic function is normal. Atria: The left atrium is severely dilated. The right atrium is moderately dilated. There is no Doppler evidence for an interatrial shunt. Mitral Valve: The mitral valve is normal in structure and function. There is mild mitral annular calcification. There is trace mitral regurgitation. Aortic Valve: The aortic valve is trileaflet. The aortic valve is heavily calcified. There is moderately reduced leaflet mobility. There is moderate aortic stenosis. The calculated aortic valve area is 1.2 cm2. The aortic valve mean gradient is 16 mmHg. The peak aortic velocity is 2.5 m/sec. No aortic regurgitation is present. Tricuspid Valve: The tricuspid valve is normal in structure and function. The right ventricular systolic pressure is estimated to be at least 27 mmHg based on an estimated right atrial pressure of 3 mm Hg. There is mild to moderate tricuspid regurgitation. Pulmonic Valve: The pulmonic valve is not well seen, but is grossly normal. There is no pulmonic valvular regurgitation. Great Vessels: The aortic root is normal size. The ascending aorta is mildly enlarged. The IVC is of normal diameter and collapses greater than 50% with a sniff. This suggests a low right atrial pressure of 3 mm Hg. Pericardium/ Pleura There is no pericardial effusion. There is no pleural effusion. MMode/2D Measurements & Calculations LVIDd: 3.9 cm LVOT diam: 2.1 cm LVIDs: 2.7 cm Ao root diam: 3.7 cm FS: 31.4 % Ao Arch Diam (Prox Trans): 4.1 cm EPSS: 0.62 cm IVSd: 0.75 cm LVPWd: 1.0 cm LV whitaker. diameter/BSA (cm/m^2): 2.0 LV sys. diameter/BSA (cm/m^2): 1.4 LA A2 area: 33.0 cm2 RA long axis: 5.9 cm LA A4 area: 29.8 cm2 RA area: 24.8 cm2 LA length (vol): 6.7 cm RA vol: 88.9 ml LA vol: 123.9 ml RA : 45.4 ml/m2 LA vol index: 63.3 ml/m2 IVC diam: 1.2 cm RVD1 (basal): 4.5 cm TAPSE: 2.1 cm Doppler Measurements & Calculations Ao V2 max: 252.4 cm/sec LVOT Max Lazaro: 87.8 cm/sec Ao V2 mean: 192.9 cm/sec LV V1 max P.1 mmHg Ao max P.5 mmHg LV V1 VTI: 15.7 cm Ao mean P.6 mmHg CIERRA(I,D): 1.2 cm2 Ao V2 VTI: 48.9 cm CIERRA(V,D): 1.3 cm2 sev ratio: 0.32 CIERRA indexed to BSA (cm^2/m^2): 0.59 MV E max lazrao: 106.6 cm/sec TR max lazaro: 246.0 cm/sec MV A max lazaro: 0.63 cm/sec TR max P.2 mmHg MV E/A: 170.1 PA V2 max: 65.6 cm/sec Med Peak E' Lazaro: 13.6 cm/sec PA V2 mean: 43.9 cm/sec E/E' med: 7.8 PA mean P.91 mmHg Lat Peak E' Lazaro: 11.9 cm/sec PA pr(Accel): 58.4 mmHg E/E' lat: 9.0 E/e' average: 8.4 MV dec time: 0.15 sec SV(LVOT): 56.6 ml Reading Physician:09:45 AM
== END ==
PROVIDERS: Family Provider Family Medicine; PCP Family Medicine; Referring Provider Family Medicine; Visit Provider Internal Medicine Cardiovascular Disease
DX: I08.2 Rheumatic disorders of both aortic and tricuspid valves (principal); I77.89 Other specified disorders of arteries and arterioles
CPT/HCPCS: 93306

== ENCOUNTER → 2020-10-26 08:40 | Outpatient (CLI) | payer MEDICARE, OTHER, SELFPAY ==
[2020-10-26 09:44] LABS: Add Manual Diff / Slide Review NO; Basophils Absolute Auto 100 /uL (0-100); Eosinophils Absolute Auto 200 /uL (0-450); Eosinophils Percent Auto 2.6 % (2-4); Hematocrit 44.3 % (41-53); Hemoglobin 14.5 g/dL (13.5-17.5); Lymphocytes Absolute Auto 1500 /uL (1100-4500); Lymphocytes Percent Auto 20.6 % (25-40); Mean Corpuscular HGB Conc 32.7 % (30-36); Mean Corpuscular Hemoglobin 29.7 PG (26-34); Mean Corpuscular Volume 90.9 fL (80-100); Monocytes Absolute Auto 900 /uL (0-900); Monocytes Percent Auto 12.5 % (3-14); Neutrophils Absolute Auto 4500 /uL (1500-7000); Neutrophils Percent Auto 63.3 % (50-75); Platelet Count 301 X10^3/uL (150-400); Red Blood Cell Count 4.88 X10^6/uL (4.5-5.9); Red Cell Distribution Width 14.8 % (11.6-14.8)
[2020-10-26 09:57] LABS: BUN Creatinine Ratio 17.9 (6-22); Blood Urea Nitrogen 21 mg/dL (9-20); Calcium 8.8 mg/dL (8.4-10.2); Carbon Dioxide 32 mmol/L (22-32); Chloride 103 mmol/L (98-107); Cholesterol 179 mg/dL (140-199); Estimated Glomerular Filt Rate 59.7 mL/min (>60); Glucose 95 mg/dL (80-110); HDL Cholesterol 38 mg/dL (40-60); HEMOLYSIS < 15 (0-50); LDL Cholesterol Calculated 110 mg/dL (<100); Potassium 4.4 mmol/L (3.4-5.1); Sodium 137 mmol/L (137-145); Triglycerides 157 mg/dL (35-150)
== END ==
PROVIDERS: Family Provider Family Medicine; PCP Family Medicine; Referring Provider Family Medicine; Visit Provider Internal Medicine Cardiovascular Disease
DX: E78.5 Hyperlipidemia, unspecified (principal); Z79.01 Long term (current) use of anticoagulants; I10 Essential (primary) hypertension
CPT/HCPCS: 36415; 80048; 80061; 85025

== ENCOUNTER 2020-11-18 09:45 | Outpatient (RCR) | payer MEDICARE, OTHER, SELFPAY ==
--- NOTE | 2020-10-27 15:49 | PT.OIE ---
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) Cervical somatic dysfunction Chest pressure Chronic atrial fibrillation (01/02/18) Chronic bilateral low back pain without sciatica Cranial somatic dysfunction Diplopia Erectile dysfunction Essential hypertension (02/16/16) Fatigue Foot stiffness History of elevated PSA Incomplete emptying of bladder (02/16/16) Left arm weakness Low HDL (under 40) Nocturia Orthostatic lightheadedness Pelvic somatic dysfunction Pleural effusion Segmental and somatic dysfunction of lumbar region Segmental and somatic dysfunction of rib cage Segmental and somatic dysfunction of sacral region Segmental and somatic dysfunction of thoracic region Somatic dysfunction of both lower extremities Stiff neck Vasovagal near syncope Vitamin D deficiency Past Surgical History (Last Reviewed 09/24/20 @ 09:44 by Cameron Young MD) Hx of cholecystectomy Status post cholecystectomy Visit Care Team Role Provider Type Oleksandr Pinto DO Attending Provider Physician Family Provider Primary Care Provider Referring Provider Specialty: [facility] Practice Address: [address] [place] [address], [facility] Email: Physical Therapy Initial Evaluation PT-OP-A Visit Information Start: 10/27/20 15:20 Freq: Status: Active Protocol: Document 10/27/20 12:00 DCW (Rec: 10/27/20 15:48 DC [id number]) Out-Patient Physical Therapy Visit Information Visit Information Visit Type Initial Evaluation Visit Start Time 12:00 Visit Stop Time 12:45 Total Visit Minutes 45 Visit Number 1 Number of DIGITAL CAMPAIGN SPECIALIST Visits 0 Evaluation Information Evaluation Date 10/27/20 PT-OP-B Current Condition Start: 10/27/20 15:20 Freq: Status: Active Protocol: Document 10/27/20 12:00 DCW (Rec: 10/27/20 15:48 DCW [id number]) Current Condition History of Current Condition Onset Date Long-standing history Current Complaints Imbalance with standing/ walking, decreased gait clinton History of Current Condition Pt is an 80 year old male presenting with a multi-year history of worsening balance. Pt's referral notes both imbalance and increased neck pain, however pt notes that Dr. Pinto really helped with my neck, it's not really bothering me anymore. Pt notes his balance is really what bothers him. Admits to occasional quick spinning with rapid head turns or standing up quickly, but really it's just an overall general sense of feeling like I'm losing my balance. Pt reports he has not had any falls because he has been really careful, but notes that he is walking much more slowly due to fear of falling. Pt has not been using any assistive device. I have some available, I just feel like it hasn't gotten that bad yet. PT-OP-C Subjective Start: 10/27/20 15:20 Freq: Status: Active Protocol: Document 10/27/20 12:00 DCW (Rec: 10/27/20 15:48 DCW [id number]) OP-PT Subjective Patient Comments Patient Comments I can walk faster if I need to, but I just start feeling uneasy. Patient Reported Progress Worse Patient Questionnaires ABC- Activity Specific Balance Confidence Scale ABC Score 73.75% PT-OP-D Balance Start: 10/27/20 15:20 Freq: Status: Active Protocol: Document 10/27/20 12:00 DCW (Rec: 10/27/20 15:48 DCW [id number]) OP-PT Balance Assessment Sitting Balance Static Sitting Balance Ability Normal Dynamic Sitting Balance Ability Normal Standing Balance Static Standing Balance Ability Good Dynamic Standing Balance Ability Fair Balance Tests Doty Balance Test Doty Balance Test Score 45/56 Doty Impairment Rating 1 to 19% Impaired (Score 45-55 ) CTSIB CTSIB Position 1 30 seconds CTSIB Position 2 17 seconds CTSIB Position 3 6 seconds CTSIB Position 4 30 seconds CTSIB Position 5 9 seconds CTSIB Position 6 2 seconds Doty Balance Assessment Evaluation Sitting to Standing Ability Independent w/out Hands Unsupported Stance Safely- 2 minutes Sitting Unsupported, Feet on Floor Safely- 2 minutes Standing to Sitting Ability Safely, Minimal Hand Use Transfer Ability Safely, Minimal Hand Use Unsupported Stance- Eyes Closed 3 seconds Unsupported Stance- Eyes Open Supervision to maintain Reaching Forward Standing Safely, 5 inches Pick- Up Object From Floor Independent/Safe Look Behind Shoulder - Standing Turns Sideways Only Turning 360 Degrees Turns , < 4 secs Unsupported Stance, Alternating Feet on 4 Steps w/Supervision Stair Unsupported Tandem Stance Achieves Tandem Unilateral Leg Stance Lifts Leg/Holds > 3 secs Total Score Doty Total Score (out of 56 points) 45 Doty Impairment Rating 1 to 19% Impaired (Score 45-55 ) Avila Fall Scale Copyright Permission PT-OP-E Functional Tests Start: 10/27/20 15:20 Freq: Status: Active Protocol: Document 10/27/20 12:00 DCW (Rec: 10/27/20 15:48 DCW [id number]) Functional Tests Dynamic Gait Index (DGI) Score DGI Impairment Rating 20 to <40% Impaired (Score 15- 19) PT-OP-M Strength Start: 10/27/20 15:20 Freq: Status: Active Protocol: Document 10/27/20 12:00 DCW (Rec: 10/27/20 15:48 DCW [id number]) Hip Strength Hip Manual Muscle Testing Bilateral Flexion (L2) 5 Normal Abduction 5 Normal Adduction 5 Normal Knee Strength Knee Manual Muscle Testing Bilateral Flexion (S2) 5 Normal Extension (L3) 5 Normal PT-OP-O Vestibular Start: 10/27/20 15:20 Freq: Status: Active Protocol: Document 10/27/20 12:00 DCW (Rec: 10/27/20 15:48 DCW [id number]) Vestibular Assessment Visual Testing Smooth Pursuits Horizontal WNL Smooth Pursuits Vertical WNL Saccades Horizontal WNL Heave Test Positive Bilateral Thrust Head Positive Bilateral Positional Testing [place]-Hallpike Negative Left,Negative Right Rolling Test Negative Left,Negative Right PT-OP-T Assessment and Plan Start: 10/27/20 15:20 Freq: Status: Active Protocol: Document 10/27/20 12:00 DCW (Rec: 10/27/20 15:48 DCW [id number]) Physical Therapy Assessment Rehab Potential Rehabilitation Potential Good Evaluation Complexity Number of Personal Factors/Comorbidities 1-2 Number of Body Systems Impaired 1-2 Clinical Presentation at Evaluation Unstable Impairments Impairments Balance,Coordination, Functional Activities,Gait, Transfers Other Concerns Fall Risk Yes, per Doty (45/56) and DGI () Goals Three Impairment Pt very visually dependent based on CTSIB performance Snf Goal (LTG) Pt to demonstrate ability to hold positions II and V on CTSIB for 20+ seconds LTG Duration 01/25/21 Two Impairment Pt scores in the falls risk category on the Doty (45/56) and DGI (17/24) Snf Goal (LTG) Pt to score a 20/24 or better on the DGI to demonstrate reduced falls risk LTG Duration 01/25/21 One Impairment Pt does not have an appropriate home exercise program Short Term Goal (STG) Pt to be independent and compliant with an appropriate HEP STG Duration 11/27/20 Assessment Summary Assessment Pt presents with multifactoral general decline in balance. Pt is very visually biased with his balance, struggles greatly with removal of fixation or addition of visual conflict. Pt LE strength is excellent, however his scores on Doty (45/56) and DGI (17/24 ) reflect he is at an increased risk of falls. Due to pt's complaints of occasional vertigo with head movement, positional testing was performed, but negative. Pt did display positive head thrust and heave tests, which is fairly expected with his age. Pt should benefit from skilled therapy focusing on balance training, neuromuscular reeducation, and gait training to improve stability and decrease falls risk. Physical Therapy Plan Frequency and Duration Frequency of Treatment 2x/Week Duration of Treatment 3 months Plan of Care Start Date 10/27/20 Plan of Care End Date 01/25/21 Therapeutic Interventions Therapeutic Interventions Balance Training,Gait Training ,Home Exercise Program, Neuromuscular Re-education, Patient/Caregiver Education, Self-Care/Home Management, Therapeutic Exercises, Vestibular Rehabilitation Next Visit Focus/Plan Next Note Type Treatment Note Next Visit Plan Balance training, NMR
--- NOTE | 2020-10-27 15:49 | PT.OPPOC ---
Physical, Occupational & Speech Therapy At [facility] Current Diagnoses Torticollis (10/27/20) Other abnormalities of gait and mobility (10/27/20) Visit Care Team Role Provider Type Oleksandr Pinto DO Attending Provider Physician Family Provider Primary Care Provider Referring Provider Specialty: Family Practice Address: [address] [place] [address], [facility] Email: Plan Of Care PT-OP-T Assessment and Plan Start: 10/27/20 15:20 Freq: Status: Active Protocol: Document 10/27/20 12:00 DCW (Rec: 10/27/20 15:48 DCW [id number]) Physical Therapy Assessment Rehab Potential Rehabilitation Potential Good Evaluation Complexity Number of Personal Factors/Comorbidities 1-2 Number of Body Systems Impaired 1-2 Clinical Presentation at Evaluation Unstable Impairments Impairments Balance,Coordination, Functional Activities,Gait, Transfers Other Concerns Fall Risk Yes, per Doty (45/56) and DGI (/) Goals Three Impairment Pt very visually dependent based on CTSIB performance Size Stamper Goal (LTG) Pt to demonstrate ability to hold positions II and V on CTSIB for 20+ seconds LTG Duration 01/25/21 Two Impairment Pt scores in the falls risk category on the Doty (45/56) and DGI () Size Stamper Goal (LTG) Pt to score a 20/24 or better on the DGI to demonstrate reduced falls risk LTG Duration 01/25/21 One Impairment Pt does not have an appropriate home exercise program Short Term Goal (STG) Pt to be independent and compliant with an appropriate HEP STG Duration 11/27/20 Assessment Summary Assessment Pt presents with multifactoral general decline in balance. Pt is very visually biased with his balance, struggles greatly with removal of fixation or addition of visual conflict. Pt LE strength is excellent, however his scores on Doty (45/56) and DGI (17/24 ) reflect he is at an increased risk of falls. Due to pt's complaints of occasional vertigo with head movement, positional testing was performed, but negative. Pt did display positive head thrust and heave tests, which is fairly expected with his age. Pt should benefit from skilled therapy focusing on balance training, neuromuscular reeducation, and gait training to improve stability and decrease falls risk. Physical Therapy Plan Frequency and Duration Frequency of Treatment 2x/Week Duration of Treatment 3 months Plan of Care Start Date 10/27/20 Plan of Care End Date 01/25/21 Therapeutic Interventions Therapeutic Interventions Balance Training,Gait Training ,Home Exercise Program, Neuromuscular Re-education, Patient/Caregiver Education, Self-Care/Home Management, Therapeutic Exercises, Vestibular Rehabilitation Next Visit Focus/Plan Next Note Type Treatment Note Next Visit Plan Balance training, NMR Plan of Care Dates Plan of Care Start Date 10/27/20 Plan of Care End Date 01/25/21 Electronically Signed by: Dakota Kilgore, PT 10/27/20 [id number] Please Sign and Return: I have reviewed this Plan of Care and certify that the skilled therapy services above are required to meet the patient?s needs. Physician Signature Date Printed Name and Credentials Clinical Instructor Signature Printed Name and Credentials
--- NOTE | 2020-10-29 11:19 | PT.OTN ---
Current Diagnoses Torticollis (10/29/20) Other abnormalities of gait and mobility (10/29/20) Physical Therapy Treatment Note PT-OP-A Visit Information Start: 10/27/20 15:20 Freq: Status: Active Protocol: Document 10/29/20 10:30 DCW (Rec: 10/29/20 11:18 DCW [id number]) Out-Patient Physical Therapy Visit Information Visit Information Visit Type Treatment Note Visit Start Time 10:30 Visit Stop Time 11:15 Total Visit Minutes 45 Visit Number 2 Number of DEPLOYMENT SPECIALIST Visits 0 Evaluation Information Evaluation Date 10/27/20 PT-OP-B Current Condition Start: 10/27/20 15:20 Freq: Status: Active Protocol: Document 10/27/20 12:00 DCW (Rec: 10/27/20 15:48 DCW [id number]) Current Condition History of Current Condition Onset Date Long-standing history Current Complaints Imbalance with standing/ walking, decreased gait clinton History of Current Condition Pt is an 80 year old male presenting with a multi-year history of worsening balance. Pt's referral notes both imbalance and increased neck pain, however pt notes that Dr. Pinto really helped with my neck, it's not really bothering me anymore. Pt notes his balance is really what bothers him. Admits to occasional quick spinning with rapid head turns or standing up quickly, but really it's just an overall general sense of feeling like I'm losing my balance. Pt reports he has not had any falls because he has been really careful, but notes that he is walking much more slowly due to fear of falling. Pt has not been using any assistive device. I have some available, I just feel like it hasn't gotten that bad yet. PT-OP-C Subjective Start: 10/27/20 15:20 Freq: Status: Active Protocol: Document 10/29/20 10:30 DCW (Rec: 10/29/20 11:18 DCW [id number]) OP-PT Subjective Patient Comments Patient Comments Pt notes he is feeling good today. PT-OP-D Balance Start: 10/27/20 15:20 Freq: Status: Active Protocol: Document 10/27/20 12:00 DCW (Rec: 10/27/20 15:48 DCW [id number]) OP-PT Balance Assessment Sitting Balance Static Sitting Balance Ability Normal Dynamic Sitting Balance Ability Normal Standing Balance Static Standing Balance Ability Good Dynamic Standing Balance Ability Fair Balance Tests Doty Balance Test Doty Balance Test Score 45/56 Doty Impairment Rating 1 to 19% Impaired (Score 45-55 ) CTSIB CTSIB Position 1 30 seconds CTSIB Position 2 17 seconds CTSIB Position 3 6 seconds CTSIB Position 4 30 seconds CTSIB Position 5 9 seconds CTSIB Position 6 2 seconds Doty Balance Assessment Evaluation Sitting to Standing Ability Independent w/out Hands Unsupported Stance Safely- 2 minutes Sitting Unsupported, Feet on Floor Safely- 2 minutes Standing to Sitting Ability Safely, Minimal Hand Use Transfer Ability Safely, Minimal Hand Use Unsupported Stance- Eyes Closed 3 seconds Unsupported Stance- Eyes Open Supervision to maintain Reaching Forward Standing Safely, 5 inches Pick- Up Object From Floor Independent/Safe Look Behind Shoulder - Standing Turns Sideways Only Turning 360 Degrees Turns , < 4 secs Unsupported Stance, Alternating Feet on 4 Steps w/Supervision Stair Unsupported Tandem Stance Achieves Tandem Unilateral Leg Stance Lifts Leg/Holds > 3 secs Total Score Doty Total Score (out of 56 points) 45 Doty Impairment Rating 1 to 19% Impaired (Score 45-55 ) Avila Fall Scale Copyright Permission PT-OP-E Functional Tests Start: 10/27/20 15:20 Freq: Status: Active Protocol: Document 10/27/20 12:00 DCW (Rec: 10/27/20 15:48 DCW [id number]) Functional Tests Dynamic Gait Index (DGI) Score 17/24 DGI Impairment Rating 20 to <40% Impaired (Score 15- 19) PT-OP-M Strength Start: 10/27/20 15:20 Freq: Status: Active Protocol: Document 10/27/20 12:00 DCW (Rec: 10/27/20 15:48 DCW [id number]) Hip Strength Hip Manual Muscle Testing Bilateral Flexion (L2) 5 Normal Abduction 5 Normal Adduction 5 Normal Knee Strength Knee Manual Muscle Testing Bilateral Flexion (S2) 5 Normal Extension (L3) 5 Normal PT-OP-O Vestibular Start: 10/27/20 15:20 Freq: Status: Active Protocol: Document 10/27/20 12:00 DCW (Rec: 10/27/20 15:48 DCW [id number]) Vestibular Assessment Visual Testing Smooth Pursuits Horizontal WNL Smooth Pursuits Vertical WNL Saccades Horizontal WNL Heave Test Positive Bilateral Thrust Head Positive Bilateral Positional Testing [place]-Hallpike Negative Left,Negative Right Rolling Test Negative Left,Negative Right PT-OP-Q Treatments Start: 10/27/20 15:20 Freq: Status: Active Protocol: Document 10/29/20 10:30 DCW (Rec: 10/29/20 11:18 DCW [id number]) Cardio Equipment Recumbent Elliptical (Biodex) Duration (Minutes) 5 Resistance 5 Seat Position 10 Gym Equipment Shuttle Balance Blue Details Wide ESAU, Narrow ESAU, Staggered Therapeutic Exercises Other Exercises 1 Other Exercise Name Resisted side-stepping Resistance Green Equipment Used T-band Neuro Re-Education Treatment Balance Activities 5 Details Foam stance Surface Solares foam Comments EO/EC, 1X viewing, Marching 4 Details Ball/Cone transfers during amb 3 Details SLS 2 Details Tandem amb 1 Details Amb /c head turns PT-OP-T Assessment and Plan Start: 10/27/20 15:20 Freq: Status: Active Protocol: Document 10/29/20 10:30 DCW (Rec: 10/29/20 11:18 DCW [id number]) Physical Therapy Assessment Impairments Impairments Balance,Coordination, Functional Activities,Gait, Transfers Other Concerns Fall Risk Yes, per Doty (45/56) and DGI () Goals Three Impairment Pt very visually dependent based on CTSIB performance Snf Goal (LTG) Pt to demonstrate ability to hold positions II and V on CTSIB for 20+ seconds LTG Duration 01/25/21 Two Impairment Pt scores in the falls risk category on the Doty (45/56) and DGI () Snf Goal (LTG) Pt to score a 20/24 or better on the DGI to demonstrate reduced falls risk LTG Duration 01/25/21 One Impairment Pt does not have an appropriate home exercise program Short Term Goal (STG) Pt to be independent and compliant with an appropriate HEP STG Duration 11/27/20 Assessment Summary Assessment Pt did better today compared to his evaluation, not as unstable with eyes closed, still struggled in tandem and had increased path deviation with head turns. Physical Therapy Plan Frequency and Duration Frequency of Treatment 2x/Week Duration of Treatment 3 months Plan of Care Start Date 10/27/20 Plan of Care End Date 01/25/21 Therapeutic Interventions Therapeutic Interventions Balance Training,Gait Training ,Home Exercise Program, Neuromuscular Re-education, Patient/Caregiver Education, Self-Care/Home Management, Therapeutic Exercises, Vestibular Rehabilitation Next Visit Focus/Plan Next Note Type Treatment Note Next Visit Plan Balance training, NMR
--- NOTE | 2020-11-03 11:21 | PT.OTN ---
Current Diagnoses Torticollis (11/03/20) Other abnormalities of gait and mobility (11/03/20) Physical Therapy Treatment Note PT-OP-A Visit Information Start: 10/27/20 15:20 Freq: Status: Active Protocol: Document 11/03/20 10:30 DCW (Rec: 11/03/20 11:20 DCW [id number]) Out-Patient Physical Therapy Visit Information Visit Information Visit Type Treatment Note Visit Start Time 10:30 Visit Stop Time 11:15 Total Visit Minutes 45 Visit Number 3 Number of CUE WORKER Visits 0 Evaluation Information Evaluation Date 10/27/20 PT-OP-B Current Condition Start: 10/27/20 15:20 Freq: Status: Active Protocol: Document 10/27/20 12:00 DCW (Rec: 10/27/20 15:48 DCW [id number]) Current Condition History of Current Condition Onset Date Long-standing history Current Complaints Imbalance with standing/ walking, decreased gait clinton History of Current Condition Pt is an 80 year old male presenting with a multi-year history of worsening balance. Pt's referral notes both imbalance and increased neck pain, however pt notes that Dr. Pinto really helped with my neck, it's not really bothering me anymore. Pt notes his balance is really what bothers him. Admits to occasional quick spinning with rapid head turns or standing up quickly, but really it's just an overall general sense of feeling like I'm losing my balance. Pt reports he has not had any falls because he has been really careful, but notes that he is walking much more slowly due to fear of falling. Pt has not been using any assistive device. I have some available, I just feel like it hasn't gotten that bad yet. PT-OP-C Subjective Start: 10/27/20 15:20 Freq: Status: Active Protocol: Document 11/03/20 10:30 DCW (Rec: 11/03/20 11:20 DCW [id number]) OP-PT Subjective Patient Comments Patient Comments Pt doing well today. PT-OP-D Balance Start: 10/27/20 15:20 Freq: Status: Active Protocol: Document 10/27/20 12:00 DCW (Rec: 10/27/20 15:48 DCW [id number]) OP-PT Balance Assessment Sitting Balance Static Sitting Balance Ability Normal Dynamic Sitting Balance Ability Normal Standing Balance Static Standing Balance Ability Good Dynamic Standing Balance Ability Fair Balance Tests Doty Balance Test Doty Balance Test Score 45/56 Doty Impairment Rating 1 to 19% Impaired (Score 45-55 ) CTSIB CTSIB Position 1 30 seconds CTSIB Position 2 17 seconds CTSIB Position 3 6 seconds CTSIB Position 4 30 seconds CTSIB Position 5 9 seconds CTSIB Position 6 2 seconds Doty Balance Assessment Evaluation Sitting to Standing Ability Independent w/out Hands Unsupported Stance Safely- 2 minutes Sitting Unsupported, Feet on Floor Safely- 2 minutes Standing to Sitting Ability Safely, Minimal Hand Use Transfer Ability Safely, Minimal Hand Use Unsupported Stance- Eyes Closed 3 seconds Unsupported Stance- Eyes Open Supervision to maintain Reaching Forward Standing Safely, 5 inches Pick- Up Object From Floor Independent/Safe Look Behind Shoulder - Standing Turns Sideways Only Turning 360 Degrees Turns , < 4 secs Unsupported Stance, Alternating Feet on 4 Steps w/Supervision Stair Unsupported Tandem Stance Achieves Tandem Unilateral Leg Stance Lifts Leg/Holds > 3 secs Total Score Doty Total Score (out of 56 points) 45 Doty Impairment Rating 1 to 19% Impaired (Score 45-55 ) Avila Fall Scale Copyright Permission PT-OP-E Functional Tests Start: 10/27/20 15:20 Freq: Status: Active Protocol: Document 10/27/20 12:00 DCW (Rec: 10/27/20 15:48 DCW [id number]) Functional Tests Dynamic Gait Index (DGI) Score 17/24 DGI Impairment Rating 20 to <40% Impaired (Score 15- 19) PT-OP-M Strength Start: 10/27/20 15:20 Freq: Status: Active Protocol: Document 10/27/20 12:00 DCW (Rec: 10/27/20 15:48 DCW [id number]) Hip Strength Hip Manual Muscle Testing Bilateral Flexion (L2) 5 Normal Abduction 5 Normal Adduction 5 Normal Knee Strength Knee Manual Muscle Testing Bilateral Flexion (S2) 5 Normal Extension (L3) 5 Normal PT-OP-O Vestibular Start: 10/27/20 15:20 Freq: Status: Active Protocol: Document 10/27/20 12:00 DCW (Rec: 10/27/20 15:48 DCW [id number]) Vestibular Assessment Visual Testing Smooth Pursuits Horizontal WNL Smooth Pursuits Vertical WNL Saccades Horizontal WNL Heave Test Positive Bilateral Thrust Head Positive Bilateral Positional Testing Hoang-Hallpike Negative Left,Negative Right Rolling Test Negative Left,Negative Right PT-OP-Q Treatments Start: 10/27/20 15:20 Freq: Status: Active Protocol: Document 11/03/20 10:30 DCW (Rec: 11/03/20 11:20 DCW [id number]) Cardio Equipment Recumbent Elliptical (Biodex) Duration (Minutes) 5 Resistance 5 Seat Position 10 Gym Equipment Shuttle Balance Red Details Wide ESAU< Staggered, Lateral weight shift Therapeutic Exercises Other Exercises 1 Other Exercise Name Resisted side-stepping Resistance Green Equipment Used T-band Neuro Re-Education Treatment Balance Activities 5 Details Foam stance Surface Solares foam Comments EO/EC, Visual conflict 3 Details SLS 2 Details Tandem amb 1 Details Amb /c head turns Comments Horizontal/Vertical PT-OP-T Assessment and Plan Start: 10/27/20 15:20 Freq: Status: Active Protocol: Document 11/03/20 10:30 DCW (Rec: 11/03/20 11:20 DCW [id number]) Physical Therapy Assessment Impairments Impairments Balance,Coordination, Functional Activities,Gait, Transfers Other Concerns Fall Risk Yes, per Doty (45/56) and DGI (17/24) Goals Three Impairment Pt very visually dependent based on CTSIB performance Lead Software Tester Goal (LTG) Pt to demonstrate ability to hold positions II and V on CTSIB for 20+ seconds LTG Duration 01/25/21 Two Impairment Pt scores in the falls risk category on the Doty (45/56) and DGI (17/24) Retirement Goal (LTG) Pt to score a 20/24 or better on the DGI to demonstrate reduced falls risk LTG Duration 01/25/21 One Impairment Pt does not have an appropriate home exercise program Short Term Goal (STG) Pt to be independent and compliant with an appropriate HEP STG Duration 11/27/20 Assessment Summary Assessment Pt doing very well, showing improvement in all areas, did not have any difficulty with visual conflict today, which is a big change from his eval Physical Therapy Plan Frequency and Duration Frequency of Treatment 2x/Week Duration of Treatment 3 months Plan of Care Start Date 10/27/20 Plan of Care End Date 01/25/21 Therapeutic Interventions Therapeutic Interventions Balance Training,Gait Training ,Home Exercise Program, Neuromuscular Re-education, Patient/Caregiver Education, Self-Care/Home Management, Therapeutic Exercises, Vestibular Rehabilitation Next Visit Focus/Plan Next Note Type Treatment Note Next Visit Plan Balance training, NMR
--- NOTE | 2020-11-09 12:44 | PT.OTN ---
Current Diagnoses Torticollis (11/09/20) Other abnormalities of gait and mobility (11/09/20) Physical Therapy Treatment Note PT-OP-A Visit Information Start: 10/27/20 15:20 Freq: Status: Active Protocol: Document 11/09/20 12:00 DCW (Rec: 11/09/20 12:43 DCW [id number]) Out-Patient Physical Therapy Visit Information Visit Information Visit Type Treatment Note Visit Start Time 12:00 Visit Stop Time 12:45 Total Visit Minutes 45 Visit Number 4 Number of THERAPEUTIC RECREATION DIRECTOR Visits 0 Evaluation Information Evaluation Date 10/27/20 PT-OP-B Current Condition Start: 10/27/20 15:20 Freq: Status: Active Protocol: Document 10/27/20 12:00 DCW (Rec: 10/27/20 15:48 DCW [id number]) Current Condition History of Current Condition Onset Date Long-standing history Current Complaints Imbalance with standing/ walking, decreased gait clinton History of Current Condition Pt is an 80 year old male presenting with a multi-year history of worsening balance. Pt's referral notes both imbalance and increased neck pain, however pt notes that Dr. Pinto really helped with my neck, it's not really bothering me anymore. Pt notes his balance is really what bothers him. Admits to occasional quick spinning with rapid head turns or standing up quickly, but really it's just an overall general sense of feeling like I'm losing my balance. Pt reports he has not had any falls because he has been really careful, but notes that he is walking much more slowly due to fear of falling. Pt has not been using any assistive device. I have some available, I just feel like it hasn't gotten that bad yet. PT-OP-C Subjective Start: 10/27/20 15:20 Freq: Status: Active Protocol: Document 11/09/20 12:00 DCW (Rec: 11/09/20 12:43 DCW [id number]) OP-PT Subjective Patient Comments Patient Comments I'm doing better, I hope. PT-OP-D Balance Start: 10/27/20 15:20 Freq: Status: Active Protocol: Document 10/27/20 12:00 DCW (Rec: 10/27/20 15:48 DCW [id number]) OP-PT Balance Assessment Sitting Balance Static Sitting Balance Ability Normal Dynamic Sitting Balance Ability Normal Standing Balance Static Standing Balance Ability Good Dynamic Standing Balance Ability Fair Balance Tests Doty Balance Test Doty Balance Test Score 45/56 Doty Impairment Rating 1 to 19% Impaired (Score 45-55 ) CTSIB CTSIB Position 1 30 seconds CTSIB Position 2 17 seconds CTSIB Position 3 6 seconds CTSIB Position 4 30 seconds CTSIB Position 5 9 seconds CTSIB Position 6 2 seconds Doty Balance Assessment Evaluation Sitting to Standing Ability Independent w/out Hands Unsupported Stance Safely- 2 minutes Sitting Unsupported, Feet on Floor Safely- 2 minutes Standing to Sitting Ability Safely, Minimal Hand Use Transfer Ability Safely, Minimal Hand Use Unsupported Stance- Eyes Closed 3 seconds Unsupported Stance- Eyes Open Supervision to maintain Reaching Forward Standing Safely, 5 inches Pick- Up Object From Floor Independent/Safe Look Behind Shoulder - Standing Turns Sideways Only Turning 360 Degrees Turns , < 4 secs Unsupported Stance, Alternating Feet on 4 Steps w/Supervision Stair Unsupported Tandem Stance Achieves Tandem Unilateral Leg Stance Lifts Leg/Holds > 3 secs Total Score Doty Total Score (out of 56 points) 45 Doty Impairment Rating 1 to 19% Impaired (Score 45-55 ) Avila Fall Scale Copyright Permission PT-OP-E Functional Tests Start: 10/27/20 15:20 Freq: Status: Active Protocol: Document 10/27/20 12:00 DCW (Rec: 10/27/20 15:48 DCW [id number]) Functional Tests Dynamic Gait Index (DGI) Score 17/24 DGI Impairment Rating 20 to <40% Impaired (Score 15- 19) PT-OP-M Strength Start: 10/27/20 15:20 Freq: Status: Active Protocol: Document 10/27/20 12:00 DCW (Rec: 10/27/20 15:48 DCW [id number]) Hip Strength Hip Manual Muscle Testing Bilateral Flexion (L2) 5 Normal Abduction 5 Normal Adduction 5 Normal Knee Strength Knee Manual Muscle Testing Bilateral Flexion (S2) 5 Normal Extension (L3) 5 Normal PT-OP-O Vestibular Start: 10/27/20 15:20 Freq: Status: Active Protocol: Document 10/27/20 12:00 DCW (Rec: 10/27/20 15:48 DCW [id number]) Vestibular Assessment Visual Testing Smooth Pursuits Horizontal WNL Smooth Pursuits Vertical WNL Saccades Horizontal WNL Heave Test Positive Bilateral Thrust Head Positive Bilateral Positional Testing Hoang-Hallpike Negative Left,Negative Right Rolling Test Negative Left,Negative Right PT-OP-Q Treatments Start: 10/27/20 15:20 Freq: Status: Active Protocol: Document 11/09/20 12:00 DCW (Rec: 11/09/20 12:43 DCW [id number]) Cardio Equipment Recumbent Elliptical (Biodex) Duration (Minutes) 5 Resistance 5 Seat Position 10 Gym Equipment Shuttle Balance Red Details Wide ESAU, Staggered, Lateral weight shift Therapeutic Exercises Other Exercises 1 Other Exercise Name Resisted side-stepping Resistance Green Equipment Used T-band Neuro Re-Education Treatment Balance Activities 6 Details Balance Board Equipment Wooden balance board Comments DF/PF 5 Details Foam stance Surface Solares foam Comments EO/EC, 1X viewing, Marching 2 Details Tandem amb 1 Details Amb /c head turns Comments Horizontal/Vertical PT-OP-T Assessment and Plan Start: 10/27/20 15:20 Freq: Status: Active Protocol: Document 11/09/20 12:00 DCW (Rec: 11/09/20 12:43 DCW [id number]) Physical Therapy Assessment Impairments Impairments Balance,Coordination, Functional Activities,Gait, Transfers Other Concerns Fall Risk Yes, per Doty (45/56) and DGI (17/24) Goals Three Impairment Pt very visually dependent based on CTSIB performance Databases Software Consultant Goal (LTG) Pt to demonstrate ability to hold positions II and V on CTSIB for 20+ seconds LTG Duration 01/25/21 Two Impairment Pt scores in the falls risk category on the Doty (45/56) and DGI (17/24) Longterm Goal (LTG) Pt to score a 20/24 or better on the DGI to demonstrate reduced falls risk LTG Duration 01/25/21 One Impairment Pt does not have an appropriate home exercise program Short Term Goal (STG) Pt to be independent and compliant with an appropriate HEP STG Duration 11/27/20 Assessment Summary Assessment Pt still doing well, having much less difficulty with most balance exercises. Mild LOB ambulation with head turns, and still some instability with EC. Physical Therapy Plan Frequency and Duration Frequency of Treatment 2x/Week Duration of Treatment 3 months Plan of Care Start Date 10/27/20 Plan of Care End Date 01/25/21 Therapeutic Interventions Therapeutic Interventions Balance Training,Gait Training ,Home Exercise Program, Neuromuscular Re-education, Patient/Caregiver Education, Self-Care/Home Management, Therapeutic Exercises, Vestibular Rehabilitation Next Visit Focus/Plan Next Note Type Treatment Note Next Visit Plan Balance training, NMR
--- NOTE | 2020-11-11 10:30 | PT.OTN ---
Current Diagnoses Torticollis (11/11/20) Other abnormalities of gait and mobility (11/11/20) Physical Therapy Treatment Note PT-OP-A Visit Information Start: 10/27/20 15:20 Freq: Status: Active Protocol: Document 11/11/20 09:45 DCW (Rec: 11/11/20 10:30 DCW [id number]) Out-Patient Physical Therapy Visit Information Visit Information Visit Type Treatment Note Visit Start Time 09:45 Visit Stop Time 10:30 Total Visit Minutes 45 Visit Number 5 Number of RESIDENT SERVICES MANAGER Visits 0 Evaluation Information Evaluation Date 10/27/20 PT-OP-B Current Condition Start: 10/27/20 15:20 Freq: Status: Active Protocol: Document 10/27/20 12:00 DCW (Rec: 10/27/20 15:48 DCW [id number]) Current Condition History of Current Condition Onset Date Long-standing history Current Complaints Imbalance with standing/ walking, decreased gait clinton History of Current Condition Pt is an 80 year old male presenting with a multi-year history of worsening balance. Pt's referral notes both imbalance and increased neck pain, however pt notes that Dr. Pinto really helped with my neck, it's not really bothering me anymore. Pt notes his balance is really what bothers him. Admits to occasional quick spinning with rapid head turns or standing up quickly, but really it's just an overall general sense of feeling like I'm losing my balance. Pt reports he has not had any falls because he has been really careful, but notes that he is walking much more slowly due to fear of falling. Pt has not been using any assistive device. I have some available, I just feel like it hasn't gotten that bad yet. PT-OP-C Subjective Start: 10/27/20 15:20 Freq: Status: Active Protocol: Document 11/11/20 09:45 DCW (Rec: 11/11/20 10:30 DCW [id number]) OP-PT Subjective Patient Comments Patient Comments I guess I'm alright today. PT-OP-D Balance Start: 10/27/20 15:20 Freq: Status: Active Protocol: Document 10/27/20 12:00 DCW (Rec: 10/27/20 15:48 DCW [id number]) OP-PT Balance Assessment Sitting Balance Static Sitting Balance Ability Normal Dynamic Sitting Balance Ability Normal Standing Balance Static Standing Balance Ability Good Dynamic Standing Balance Ability Fair Balance Tests Doty Balance Test Doty Balance Test Score 45/56 Doty Impairment Rating 1 to 19% Impaired (Score 45-55 ) CTSIB CTSIB Position 1 30 seconds CTSIB Position 2 17 seconds CTSIB Position 3 6 seconds CTSIB Position 4 30 seconds CTSIB Position 5 9 seconds CTSIB Position 6 2 seconds Doty Balance Assessment Evaluation Sitting to Standing Ability Independent w/out Hands Unsupported Stance Safely- 2 minutes Sitting Unsupported, Feet on Floor Safely- 2 minutes Standing to Sitting Ability Safely, Minimal Hand Use Transfer Ability Safely, Minimal Hand Use Unsupported Stance- Eyes Closed 3 seconds Unsupported Stance- Eyes Open Supervision to maintain Reaching Forward Standing Safely, 5 inches Pick- Up Object From Floor Independent/Safe Look Behind Shoulder - Standing Turns Sideways Only Turning 360 Degrees Turns , < 4 secs Unsupported Stance, Alternating Feet on 4 Steps w/Supervision Stair Unsupported Tandem Stance Achieves Tandem Unilateral Leg Stance Lifts Leg/Holds > 3 secs Total Score Doty Total Score (out of 56 points) 45 Doty Impairment Rating 1 to 19% Impaired (Score 45-55 ) Avila Fall Scale Copyright Permission PT-OP-E Functional Tests Start: 10/27/20 15:20 Freq: Status: Active Protocol: Document 10/27/20 12:00 DCW (Rec: 10/27/20 15:48 DCW [id number]) Functional Tests Dynamic Gait Index (DGI) Score 17/24 DGI Impairment Rating 20 to <40% Impaired (Score 15- 19) PT-OP-M Strength Start: 10/27/20 15:20 Freq: Status: Active Protocol: Document 10/27/20 12:00 DCW (Rec: 10/27/20 15:48 DCW [id number]) Hip Strength Hip Manual Muscle Testing Bilateral Flexion (L2) 5 Normal Abduction 5 Normal Adduction 5 Normal Knee Strength Knee Manual Muscle Testing Bilateral Flexion (S2) 5 Normal Extension (L3) 5 Normal PT-OP-O Vestibular Start: 10/27/20 15:20 Freq: Status: Active Protocol: Document 10/27/20 12:00 DCW (Rec: 10/27/20 15:48 DCW [id number]) Vestibular Assessment Visual Testing Smooth Pursuits Horizontal WNL Smooth Pursuits Vertical WNL Saccades Horizontal WNL Heave Test Positive Bilateral Thrust Head Positive Bilateral Positional Testing [place]-Hallpike Negative Left,Negative Right Rolling Test Negative Left,Negative Right PT-OP-Q Treatments Start: 10/27/20 15:20 Freq: Status: Active Protocol: Document 11/11/20 09:45 DCW (Rec: 11/11/20 10:30 DCW [id number]) Cardio Equipment Recumbent Elliptical (Biodex) Duration (Minutes) 5 Resistance 5 Seat Position 10 Gym Equipment Shuttle Balance Red Details Wide ESAU, Staggered, Lateral weight shift Therapeutic Exercises Other Exercises 1 Other Exercise Name Resisted side-stepping Resistance Green Equipment Used T-band Neuro Re-Education Treatment Balance Activities 3 Details SLS 2 Details Tandem amb 1 Details Amb /c head turns Comments Horizontal/Vertical PT-OP-T Assessment and Plan Start: 10/27/20 15:20 Freq: Status: Active Protocol: Document 11/11/20 09:45 DCW (Rec: 11/11/20 10:30 DCW [id number]) Physical Therapy Assessment Impairments Impairments Balance,Coordination, Functional Activities,Gait, Transfers Other Concerns Fall Risk Yes, per Doty (45/56) and DGI (17/24) Goals Three Impairment Pt very visually dependent based on CTSIB performance Cartography Teacher Goal (LTG) Pt to demonstrate ability to hold positions II and V on CTSIB for 20+ seconds LTG Duration 01/25/21 Two Impairment Pt scores in the falls risk category on the Doty (45/56) and DGI (17/24) Cartography Teacher Goal (LTG) Pt to score a 20/24 or better on the DGI to demonstrate reduced falls risk LTG Duration 01/25/21 One Impairment Pt does not have an appropriate home exercise program Short Term Goal (STG) Pt to be independent and compliant with an appropriate HEP STG Duration 11/27/20 Assessment Summary Assessment Pt struggled a little more today with SLS and ambulation with head turns, but doing better with Shuttle balance. Physical Therapy Plan Frequency and Duration Frequency of Treatment 2x/Week Duration of Treatment 3 months Plan of Care Start Date 10/27/20 Plan of Care End Date 01/25/21 Therapeutic Interventions Therapeutic Interventions Balance Training,Gait Training ,Home Exercise Program, Neuromuscular Re-education, Patient/Caregiver Education, Self-Care/Home Management, Therapeutic Exercises, Vestibular Rehabilitation Next Visit Focus/Plan Next Note Type Treatment Note Next Visit Plan Balance training, NMR
--- NOTE | 2020-11-16 10:29 | PT.OTN ---
Current Diagnoses Torticollis (11/16/20) Other abnormalities of gait and mobility (11/16/20) Physical Therapy Treatment Note PT-OP-A Visit Information Start: 10/27/20 15:20 Freq: Status: Active Protocol: Document 11/16/20 09:45 DCW (Rec: 11/16/20 10:29 DCW [id number]) Out-Patient Physical Therapy Visit Information Visit Information Visit Type Treatment Note Visit Start Time 09:45 Visit Stop Time 10:30 Total Visit Minutes 45 Visit Number 6 Number of SAP BPC DEVELOPER Visits 0 Evaluation Information Evaluation Date 10/27/20 PT-OP-B Current Condition Start: 10/27/20 15:20 Freq: Status: Active Protocol: Document 10/27/20 12:00 DCW (Rec: 10/27/20 15:48 DCW [id number]) Current Condition History of Current Condition Onset Date Long-standing history Current Complaints Imbalance with standing/ walking, decreased gait clinton History of Current Condition Pt is an 80 year old male presenting with a multi-year history of worsening balance. Pt's referral notes both imbalance and increased neck pain, however pt notes that Dr. Pinto really helped with my neck, it's not really bothering me anymore. Pt notes his balance is really what bothers him. Admits to occasional quick spinning with rapid head turns or standing up quickly, but really it's just an overall general sense of feeling like I'm losing my balance. Pt reports he has not had any falls because he has been really careful, but notes that he is walking much more slowly due to fear of falling. Pt has not been using any assistive device. I have some available, I just feel like it hasn't gotten that bad yet. PT-OP-C Subjective Start: 10/27/20 15:20 Freq: Status: Active Protocol: Document 11/16/20 09:45 DCW (Rec: 11/16/20 10:29 DCW [id number]) OP-PT Subjective Patient Comments Patient Comments Pt is okay, I guess. Notes he feels he is doing a lot better on some things, but my balance problems are hard to describe, and I still feel like there are some issues. PT-OP-D Balance Start: 10/27/20 15:20 Freq: Status: Active Protocol: Document 10/27/20 12:00 DCW (Rec: 10/27/20 15:48 DCW [id number]) OP-PT Balance Assessment Sitting Balance Static Sitting Balance Ability Normal Dynamic Sitting Balance Ability Normal Standing Balance Static Standing Balance Ability Good Dynamic Standing Balance Ability Fair Balance Tests Doty Balance Test Doty Balance Test Score 45/56 Doty Impairment Rating 1 to 19% Impaired (Score 45-55 ) CTSIB CTSIB Position 1 30 seconds CTSIB Position 2 17 seconds CTSIB Position 3 6 seconds CTSIB Position 4 30 seconds CTSIB Position 5 9 seconds CTSIB Position 6 2 seconds Doty Balance Assessment Evaluation Sitting to Standing Ability Independent w/out Hands Unsupported Stance Safely- 2 minutes Sitting Unsupported, Feet on Floor Safely- 2 minutes Standing to Sitting Ability Safely, Minimal Hand Use Transfer Ability Safely, Minimal Hand Use Unsupported Stance- Eyes Closed 3 seconds Unsupported Stance- Eyes Open Supervision to maintain Reaching Forward Standing Safely, 5 inches Pick- Up Object From Floor Independent/Safe Look Behind Shoulder - Standing Turns Sideways Only Turning 360 Degrees Turns , < 4 secs Unsupported Stance, Alternating Feet on 4 Steps w/Supervision Stair Unsupported Tandem Stance Achieves Tandem Unilateral Leg Stance Lifts Leg/Holds > 3 secs Total Score Doty Total Score (out of 56 points) 45 Doty Impairment Rating 1 to 19% Impaired (Score 45-55 ) Avila Fall Scale Copyright Permission PT-OP-E Functional Tests Start: 10/27/20 15:20 Freq: Status: Active Protocol: Document 10/27/20 12:00 DCW (Rec: 10/27/20 15:48 DCW [id number]) Functional Tests Dynamic Gait Index (DGI) Score 17/24 DGI Impairment Rating 20 to <40% Impaired (Score 15- 19) PT-OP-M Strength Start: 10/27/20 15:20 Freq: Status: Active Protocol: Document 10/27/20 12:00 DCW (Rec: 10/27/20 15:48 DCW [id number]) Hip Strength Hip Manual Muscle Testing Bilateral Flexion (L2) 5 Normal Abduction 5 Normal Adduction 5 Normal Knee Strength Knee Manual Muscle Testing Bilateral Flexion (S2) 5 Normal Extension (L3) 5 Normal PT-OP-O Vestibular Start: 10/27/20 15:20 Freq: Status: Active Protocol: Document 10/27/20 12:00 DCW (Rec: 10/27/20 15:48 DCW [id number]) Vestibular Assessment Visual Testing Smooth Pursuits Horizontal WNL Smooth Pursuits Vertical WNL Saccades Horizontal WNL Heave Test Positive Bilateral Thrust Head Positive Bilateral Positional Testing Hoang-Hallpike Negative Left,Negative Right Rolling Test Negative Left,Negative Right PT-OP-Q Treatments Start: 10/27/20 15:20 Freq: Status: Active Protocol: Document 11/16/20 09:45 DCW (Rec: 11/16/20 10:29 DCW [id number]) Cardio Equipment Recumbent Elliptical ([email or web address]) Duration (Minutes) 5 Resistance 5 Seat Position 10 Gym Equipment Shuttle Balance Red Details Wide ESAU, Staggered, Lateral weight shift Therapeutic Exercises Other Exercises 1 Other Exercise Name Resisted side-stepping Resistance Green Equipment Used T-band Neuro Re-Education Treatment Balance Activities 6 Details Balance Board Equipment Wooden balance board Comments DF/PF 3 Details SLS 2 Details Tandem amb 1 Details Amb /c head turns Comments Horizontal/Vertical PT-OP-T Assessment and Plan Start: 10/27/20 15:20 Freq: Status: Active Protocol: Document 11/16/20 09:45 DCW (Rec: 11/16/20 10:29 DCW [id number]) Physical Therapy Assessment Impairments Impairments Balance,Coordination, Functional Activities,Gait, Transfers Other Concerns Fall Risk Yes, per Doty (45/56) and DGI () Goals Three Impairment Pt very visually dependent based on CTSIB performance Family Engagement Specialist Goal (LTG) Pt to demonstrate ability to hold positions II and V on CTSIB for 20+ seconds LTG Duration 01/25/21 Two Impairment Pt scores in the falls risk category on the Doty (45/56) and DGI () Family Engagement Specialist Goal (LTG) Pt to score a 20/24 or better on the DGI to demonstrate reduced falls risk LTG Duration 01/25/21 One Impairment Pt does not have an appropriate home exercise program Short Term Goal (STG) Pt to be independent and compliant with an appropriate HEP STG Duration 11/27/20 Assessment Summary Assessment Pt only has one more visit scheduled, would like to undergo retesting and then determine at that time if he wants to schedule more appointments. Physical Therapy Plan Frequency and Duration Frequency of Treatment 2x/Week Duration of Treatment 3 months Plan of Care Start Date 10/27/20 Plan of Care End Date 01/25/21 Therapeutic Interventions Therapeutic Interventions Balance Training,Gait Training ,Home Exercise Program, Neuromuscular Re-education, Patient/Caregiver Education, Self-Care/Home Management, Therapeutic Exercises, Vestibular Rehabilitation Next Visit Focus/Plan Next Note Type Treatment Note Next Visit Plan Balance training, NMR
--- NOTE | 2020-11-18 10:24 | PT.OTN ---
Current Diagnoses Torticollis (11/18/20) Other abnormalities of gait and mobility (11/18/20) Physical Therapy Treatment Note PT-OP-A Visit Information Start: 10/27/20 15:20 Freq: Status: Active Protocol: Document 11/18/20 09:45 DCW (Rec: 11/18/20 10:22 DCW [id number]) Out-Patient Physical Therapy Visit Information Visit Information Visit Type Treatment Note Visit Start Time 09:45 Visit Stop Time 10:17 Total Visit Minutes 32 Visit Number 7 Number of PRICING COORDINATOR Visits 0 Evaluation Information Evaluation Date 10/27/20 PT-OP-B Current Condition Start: 10/27/20 15:20 Freq: Status: Active Protocol: Document 10/27/20 12:00 DCW (Rec: 10/27/20 15:48 DCW [id number]) Current Condition History of Current Condition Onset Date Long-standing history Current Complaints Imbalance with standing/ walking, decreased gait clinton History of Current Condition Pt is an 80 year old male presenting with a multi-year history of worsening balance. Pt's referral notes both imbalance and increased neck pain, however pt notes that Dr. Pinto really helped with my neck, it's not really bothering me anymore. Pt notes his balance is really what bothers him. Admits to occasional quick spinning with rapid head turns or standing up quickly, but really it's just an overall general sense of feeling like I'm losing my balance. Pt reports he has not had any falls because he has been really careful, but notes that he is walking much more slowly due to fear of falling. Pt has not been using any assistive device. I have some available, I just feel like it hasn't gotten that bad yet. PT-OP-C Subjective Start: 10/27/20 15:20 Freq: Status: Active Protocol: Document 11/18/20 09:45 DCW (Rec: 11/18/20 10:23 DCW [id number]) OP-PT Subjective Patient Comments Patient Comments Pt feels he has been doing very well PT-OP-D Balance Start: 10/27/20 15:20 Freq: Status: Active Protocol: Document 11/18/20 09:45 DCW (Rec: 11/18/20 10:24 DCW [id number]) Balance Tests Doty Balance Test Doty Balance Test Score 54/56 Doty Impairment Rating 1 to 19% Impaired (Score 45-55 ) Doty Balance Assessment Evaluation Sitting to Standing Ability Independent w/out Hands Unsupported Stance Safely- 2 minutes Sitting Unsupported, Feet on Floor Safely- 2 minutes Standing to Sitting Ability Safely, Minimal Hand Use Transfer Ability Safely, Minimal Hand Use Unsupported Stance- Eyes Closed Safely, 10 seconds Unsupported Stance- Eyes Open Independent, 1 minute Reaching Forward Standing Confidently, 10 inches Pick- Up Object From Floor Independent/Safe Look Behind Shoulder - Standing Shifts Weight Well Turning 360 Degrees Turns Bilateral, < 4 secs Unsupported Stance, Alternating Feet on (I)- 8 Steps in 20 secs Stair Unsupported Tandem Stance Achieves Tandem Unilateral Leg Stance Lifts Leg/Holds > 3 secs Total Score Doty Total Score (out of 56 points) 54 Dtoy Impairment Rating 1 to 19% Impaired (Score 45-55 ) PT-OP-E Functional Tests Start: 10/27/20 15:20 Freq: Status: Active Protocol: Document 11/18/20 09:45 DCW (Rec: 11/18/20 10:24 DCW [id number]) Functional Tests Dynamic Gait Index (DGI) Score 22/24 DGI Impairment Rating 1 to <20% Impaired (Score 20- 23) PT-OP-M Strength Start: 10/27/20 15:20 Freq: Status: Active Protocol: Document 10/27/20 12:00 DCW (Rec: 10/27/20 15:48 DCW [id number]) Hip Strength Hip Manual Muscle Testing Bilateral Flexion (L2) 5 Normal Abduction 5 Normal Adduction 5 Normal Knee Strength Knee Manual Muscle Testing Bilateral Flexion (S2) 5 Normal Extension (L3) 5 Normal PT-OP-O Vestibular Start: 10/27/20 15:20 Freq: Status: Active Protocol: Document 10/27/20 12:00 DCW (Rec: 10/27/20 15:48 DCW [id number]) Vestibular Assessment Visual Testing Smooth Pursuits Horizontal WNL Smooth Pursuits Vertical WNL Saccades Horizontal WNL Heave Test Positive Bilateral Thrust Head Positive Bilateral Positional Testing [place]-Hallpike Negative Left,Negative Right Rolling Test Negative Left,Negative Right PT-OP-Q Treatments Start: 10/27/20 15:20 Freq: Status: Active Protocol: Document 11/18/20 09:45 DCW (Rec: 11/18/20 10:22 DCW [id number]) Cardio Equipment Recumbent Elliptical ([employer]) Duration (Minutes) 5 Resistance 5 Seat Position 10 Neuro Re-Education Treatment Other Activities 1 Details Doty, DGI testing PT-OP-T Assessment and Plan Start: 10/27/20 15:20 Freq: Status: Active Protocol: Document 11/18/20 09:45 DCW (Rec: 11/18/20 10:22 DCW [id number]) Physical Therapy Assessment Impairments Impairments Balance,Coordination, Functional Activities,Gait, Transfers Other Concerns Fall Risk No Goals Three Impairment Pt very visually dependent based on CTSIB performance Nursing Service Administrator Goal (LTG) Pt to demonstrate ability to hold positions II and V on CTSIB for 20+ seconds LTG Duration 01/25/21 Two Impairment Pt scores in the falls risk category on the Doty (45/56) and DGI (17/24) Nursing Service Administrator Goal (LTG) Pt to score a 20/24 or better on the DGI to demonstrate reduced falls risk LTG Duration Met One Impairment Pt does not have an appropriate home exercise program Short Term Goal (STG) Pt to be independent and compliant with an appropriate HEP STG Duration Met Assessment Summary Assessment Pt doing very well, scored 22/ 24 on DGI, up from 17/24, and 54/56 on Doty, up from 45/56. Patient and therapist feel pt is appropriate for discharge at this time. Pt understands he should continue to work on balance training at home. Physical Therapy Plan Frequency and Duration Frequency of Treatment 2x/Week Duration of Treatment 3 months Plan of Care Start Date 10/27/20 Plan of Care End Date 01/25/21 Therapeutic Interventions Therapeutic Interventions Balance Training,Gait Training ,Home Exercise Program, Neuromuscular Re-education, Patient/Caregiver Education, Self-Care/Home Management, Therapeutic Exercises, Vestibular Rehabilitation Discharge Physical Therapy Discharge Reasons Goals Met Next Visit Focus/Plan Next Note Type Discharge Summary
== END 2020-11-20 13:16 | disposition home or self-care (01) ==
LOC: PHYS 09:45
PROVIDERS: Family Provider Family Medicine; PCP Family Medicine; Referring Provider Family Medicine; Visit Provider Family Medicine
DX: M43.6 Torticollis (principal); R26.89 Other abnormalities of gait and mobility
CPT/HCPCS: 97110; 97112; 97161

== ENCOUNTER 2020-12-24 01:30 | Emergency (ER) | payer MEDICARE, OTHER, SELFPAY ==
[2020-12-24 01:35] VITALS: BP 175/94; PULSE 87; RESP 17; TEMP 36.6; O2SAT 94; BMI 23.7
--- NOTE | 2020-12-24 02:36 | DI.CT.S_ITS ---
PROCEDURE: CT HEAD/BRAIN WO CON INDICATIONS: double vision now resolved TECHNIQUE: Noncontrast 4.5 mm thick angled axial sections acquired from the foramen magnum to the vertex, with coronal and sagittal reformats. For radiation dose reduction, the following was used: automated exposure control, adjustment of mA and/or kV according to patient size. COMPARISON: None. FINDINGS: Image quality: Excellent. CSF spaces: Basal cisterns are patent. No extra-axial fluid collections. The ventricles are symmetric in size and shape. Brain: No intracranial bleeds or masses. There is cerebral volume loss for age, with resultant ventricular and sulcal prominence. There are periventricular and deep white matter chronic small vessel ischemic changes. There is intracranial internal carotid artery and vertebral artery. atherosclerosis. Skull and face: Calvarium and visualized facial bones appear intact, without suspicious lesions. Sinuses: Mucosal thickening noted in the maxillary sinuses and the anterior left ethmoid air cells. mastoids are clear. IMPRESSION: No acute intracranial disease process. Dictated by: Shahida Elliott MD, PhD on 12/24/2020 at 7:22 Approved by: Shahida Elliott MD, PhD on 12/24/2020 at 7:24
--- NOTE | 2020-12-24 02:36 | ED.NEUROSD ---
HPI - Neuro Symptoms/Deficit General Chief Complaint: Neuro Symptoms/Deficit Stated Complaint: chills, had double vision Time Seen by Provider: 12/24/20 02:05 Source: patient Mode of arrival: Ambulatory Limitations: no limitations History of Present Illness HPI Narrative: The patient is an 80-year-old gentleman with history of atrial fibrillation presenting today with double vision which started just prior to his arrival while he was urinating. He is it lasted about 10 minutes. He had no difficulty speaking no weakness numbness or tingling. No chest pain or heart palpitations. This has happened to him multiple times in fact he has been to the ER 3 times a it is August 02 for similar things. He is had CTAs of the head and neck along with brain MRI in July and September along with an echocardiogram in October. He says he has been worked up for this multiple times. He follows up with his primary care provider regularly. He overall feels back to his baseline. He currently denies any dizziness or headache Onset (ago): minute(s) Location: other (Double vision now resolved) History of same: Yes Severity: mild Relieving factors: time Exacerbating factors: none On Anticoagulants: Yes (warfarin) Associated symptoms: denies other symptoms Related Data Home Medications Medication Instructions Recorded Confirmed multivitamin [Multiple Vitamins] 1 tab PO DAILY #0 03/06/13 10/27/20 cholecalciferol (vitamin D3) 2,000 unit PO DAILY #0 tab 08/03/16 10/27/20 [Vitamin D3] Iron High Potency 27 mg PO DAILY 04/09/19 10/27/20 Ocuvite 30unit 5mg 150mg 1 cap PO DAILY 04/09/19 10/27/20 metoprolol succinate 100 mg PO QAM 04/09/19 10/27/20 metoprolol succinate [Toprol XL] 25 mg PO BEDTIME 07/18/20 10/27/20 atorvastatin 40 mg tablet 40 mg PO DAILY 11/19/20 11/19/20 Previous Rx's Medication Instructions Recorded clobetasol 0.05 % topical ointment 1 applic TOPICAL BID PRN #30 gram 12/10/19 warfarin 5 mg tablet See Rx Instructions .ROUTE 12/25/19 .COMPLEX #90 tab finasteride 5 mg tablet 5 mg PO Q OTHER DAY #90 tab 10/14/20 tamsulosin 0.4 mg capsule 0.8 mg PO BEDTIME #180 cap 10/14/20 Allergies Allergy/AdvReac Type Severity Reaction Status Date / Time No Known Drug Allergies Allergy Verified 11/19/20 09:29 Review of Systems Review of Systems Narrative: GENERAL: Denies chills, fatigue, malaise, fever, sweats, travel HEENT: Double vision Denies sinus pain, ear pain, sore throat, difficulty swallowing, neck pain RESPIRATORY: Denies dyspnea, cough, wheezing, hemoptysis, sputum. CARDIOVASCULAR: Denies chest pain, palpitations, orthopnea, edema GASTROINTESTINAL: Denies nausea, vomiting, abdominal pain, diarrhea, constipation, melena. : Denies dysuria, frequency, incontinence, hematuria, urinary retention, flank pain. MUSCULOSKELETAL: Denies weakness, joint pain, or bony pain SKIN: No rash, no erythema, no pruritus NEUROLOGIC: See HPI PSYCHIATRIC: No concerning psychosocial issues. 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) Cervical somatic dysfunction Chest pressure Chronic atrial fibrillation (01/02/18) Chronic bilateral low back pain without sciatica Cranial somatic dysfunction Diplopia Erectile dysfunction Essential hypertension (02/16/16) Fatigue Foot stiffness History of elevated PSA Incomplete emptying of bladder (02/16/16) Left arm weakness Low HDL (under 40) Nocturia Nocturia Orthostatic lightheadedness Pelvic somatic dysfunction Pleural effusion Segmental and somatic dysfunction of lumbar region Segmental and somatic dysfunction of rib cage Segmental and somatic dysfunction of sacral region Segmental and somatic dysfunction of thoracic region Somatic dysfunction of both lower extremities Stiff neck Vasovagal near syncope Vitamin D deficiency Surgical History Hx of cholecystectomy Status post cholecystectomy Family History Mother CVA (cerebral vascular accident) Father Diabetes mellitus Brother Renal failure Social History marital status: number of children: 1 household members: none occupational status: previously employed Previous occupational history: [employer] Smoking Status: Former smoker alcohol intake: former caffeine: Yes Smoking Status: Former smoker alcohol intake frequency: holidays/special occasions only Substance Use Type: does not use Exam Initial Vital Signs Initial Vital Signs: Vital Signs Temperature 97.8 F 12/24/20 01:35 Pulse Rate 87 12/24/20 01:35 Respiratory Rate 17 12/24/20 01:35 Blood Pressure 175/94 H 12/24/20 01:35 Pulse Oximetry 94 12/24/20 01:35 GENERAL: Alert pleasant 80-year-old male and in no acute distress. HEENT: Head atraumatic,EOMI, pupils reactive, face symmetric, moist mucous membranes CARDIOVASCULAR: Regular rate and rhythm without murmurs, rubs or gallops. RESPIRATORY: Breath sounds equal bilaterally, no wheezes rales or rhonchi. ABDOMEN: Soft, nontender. Normoactive bowel sounds all 4 quadrants. No guarding or rebound. EXTREMITIES: Normal range of motion, no clubbing or edema. Neurovascularly intact NEUROLOGICAL: Alert and oriented x4.Normal gait and speech. Cranial nerves II through XII grossly intact. Good [id number], good [id number], strength equal bilaterally, no dysarthria or aphasia, sensation in tact to soft touch bilaterally, no visual changes, no facial droop SKIN: Warm, dry, no laceration, no petechiae, no rashes or lesions. Scores NIH Stroke Scale Level of Conciousness: Alert, keenly responsive Ask month/age: Answers both questions correctly. Open/close eyes, close hand: Performs both tasks correctly Best gaze horizontal: Normal Visual tang: No visual loss Facial palsy: Normal symetrical movement Left arm drift: No drift for full 10 sec Right arm drift: No drift for full 10 sec Left leg drift: No drift for full 5 sec Right leg drift: No drift for full 5 sec Limb ataxia: Absent Sensory on face/arms/legs: Normal, no sensory loss Best language: No aphasia, normal Dysarthria: Normal Extinction or inattention: No abnormality Total NIH Stroke scale score: 0 Course Orders Ordered: ED Orders 12/24/20 01:50 Complete Blood Count AUTO DIFF Stat Comprehensive Metabolic Panel Stat Partial Thromboplastin Time Stat Prothrombin Time INR Stat Troponin & CK Cardiac Panel Stat 12/24/20 02:36 CT head/brain wo con Stat EKG-12 Lead Stat 12/24/20 03:25 Urine Drug Screen, Rapid Stat Vital Signs Vital signs: Vital Signs - 8 hr 12/24/20 01:35 12/24/20 03:30 Temperature 97.8 F Pulse Rate 87 78 Respiratory Rate 17 14 Blood Pressure 175/94 H 158/72 H Pulse Oximetry 94 98 MDM - Neuro Symptoms/Deficit Lab Data Attestation: I reviewed the patient's lab results. Result diagrams: 12/24/20 01:50 12/24/20 01:50 Labs: Lab Results 12/24/20 12/24/20 12/24/20 Range/Units 01:50 01:50 01:50 WBC 6.4 (4.5-11.0) X10^3/uL RBC 4.70 (4.5-5.9) X10^6/uL Hgb 13.7 (13.5-17.5) g/dL Hct 42.3 (41-53) % MCV 90.1 (80-100) fL MCH 29.1 (26-34) PG MCHC 32.3 (30-36) % RDW 14.4 (11.6-14.8) % Plt Count 299 (150-400) X10^3/uL Neut % (Auto) 65.7 (50-75) % Lymph % (Auto) 18.7 L (25-40) % [place] % (Auto) 11.2 (3-14) % Eos % (Auto) 3.8 (2-4) % Baso % (Auto) 0.6 (0-2) % Neut # (Auto) 4200 (2656-1597) /uL Lymph # (Auto) 1200 (3300-3553) /uL [place] # (Auto) 700 (0-900) /uL Eos # (Auto) 200 (0-450) /uL Baso # (Auto) 0 (0-100) /uL PT 31.6 H (10.1-12.7) SECONDS INR 2.8 H (0.9-1.3) APTT 46 H (26.4-36.2) SECONDS Sodium 134 L (137-145) mmol/L Potassium 3.9 (3.4-5.1) mmol/L Chloride 105 (98-107) mmol/L Carbon Dioxide 28 (22-32) mmol/L BUN 23 H (9-20) mg/dL Creatinine 1.10 (0.66-1.25) mg/dL Estimated GFR > 60.0 (>60) mL/min BUN/Creatinine Ratio 20.9 (6-22) Glucose 126 H (80-110) mg/dL Calcium 8.3 L (8.4-10.2) mg/dL Total Bilirubin 0.9 (0.2-1.3) mg/dL AST 27 (17-59) IU/L ALT 26 (<50) IU/L Alkaline Phosphatase 99 (38-126) U/L Total Creatine Kinase 56 (55-170) U/L CK-MB (CK-2) TNP CK-MB (CK-2) Rel Index TNP Troponin I < 0.012 (0.01-0.034) ng/mL Total Protein 6.7 (6.3-8.2) g/dL Albumin 3.6 (3.5-5.0) g/dL Globulin 3.1 (1.7-4.1) g/dL Albumin/Globulin Ratio 1.2 (1.0-2.8) U Opiates 300ng/mL cut (Negative) Ur Oxycodone Screen (Negative) Urine Methadone Screen (Negative) Ur Barbiturates Screen (Negative) U Tricyclic Antidepress (Negative) Ur Phencyclidine Scrn (Negative) Ur Amphetamines Screen (Negative) U Methamphetamines Scrn (Negative) Ur MDMA Scrn (Ecstasy) (Negative) U Benzodiazepines Scrn (Negative) Urine Cocaine Screen (Negative) U Marijuana (THC) Screen (Negative) 12/24/20 Range/Units 03:25 WBC (4.5-11.0) X10^3/uL RBC (4.5-5.9) X10^6/uL Hgb (13.5-17.5) g/dL Hct (41-53) % MCV (80-100) fL MCH (26-34) PG MCHC (30-36) % RDW (11.6-14.8) % Plt Count (150-400) X10^3/uL Neut % (Auto) (50-75) % Lymph % (Auto) (25-40) % [place] % (Auto) (3-14) % Eos % (Auto) (2-4) % Baso % (Auto) (0-2) % Neut # (Auto) (2486-2956) /uL Lymph # (Auto) (5432-6337) /uL [place] # (Auto) (0-900) /uL Eos # (Auto) (0-450) /uL Baso # (Auto) (0-100) /uL PT (10.1-12.7) SECONDS INR (0.9-1.3) APTT (26.4-36.2) SECONDS Sodium (137-145) mmol/L Potassium (3.4-5.1) mmol/L Chloride (98-107) mmol/L Carbon Dioxide (22-32) mmol/L BUN (9-20) mg/dL Creatinine (0.66-1.25) mg/dL Estimated GFR (>60) mL/min BUN/Creatinine Ratio (6-22) Glucose (80-110) mg/dL Calcium (8.4-10.2) mg/dL Total Bilirubin (0.2-1.3) mg/dL AST (17-59) IU/L ALT (<50) IU/L Alkaline Phosphatase (38-126) U/L Total Creatine Kinase (55-170) U/L CK-MB (CK-2) CK-MB (CK-2) Rel Index Troponin I (0.01-0.034) ng/mL Total Protein (6.3-8.2) g/dL Albumin (3.5-5.0) g/dL Globulin (1.7-4.1) g/dL Albumin/Globulin Ratio (1.0-2.8) U Opiates 300ng/mL cut Negative (Negative) Ur Oxycodone Screen Negative (Negative) Urine Methadone Screen Negative (Negative) Ur Barbiturates Screen Negative (Negative) U Tricyclic Antidepress Negative (Negative) Ur Phencyclidine Scrn Negative (Negative) Ur Amphetamines Screen Negative (Negative) U Methamphetamines Scrn Negative (Negative) Ur MDMA Scrn (Ecstasy) Negative (Negative) U Benzodiazepines Scrn Negative (Negative) Urine Cocaine Screen Negative (Negative) U Marijuana (THC) Screen Negative (Negative) Urine Dip Bedside Urine Glucose Negative Bedside Urine Bilirubin - Negative Bedside Urine Ketone - Negative Urine Specific [place] 1.025 Bedside Urine Occult Blood +/- Bedside Urine pH 6.0 Bedside Urine Protein - Negative Bedside Urine Urobilinogen - Negative Bedside Urine Nitrite - Negative Bedside Urine Leukocytes - Negative Esterase Imaging Data CT scan - head: Radiologist's Impression: No acute intracranial findings ECG Data Attestation: I personally reviewed and interpreted this ECG as follows: Prior ECG tracings: available for review Interpretation: Atrial fibrillation rate [address] changes similar to previous EKG MDM Narrative Medical decision making narrative: This time patient had double vision in both eyes he states even when he closed 1 eye he still had double vision and happened out of both eyes. At this time not consistent with stroke or really TIA. He has had multiple MRIs and echocardiograms over the last 6 months. He has an appointment with his eye doctor later. At this time symptoms have completely resolved does not meet admission criteria. The patient is ambulatory to the bathroom without any assistance Discharge Plan Departure Patient Disposition: Home Clinical Impression: Double vision with both eyes open Activity Restrictions/Additional Instructions: *You have been diagnosed with double vision *What to do: At this time I recommend he follow up with her primary care doctor and an eye doctor. *Continue to take medications as directed *Follow up with your primary care provider in 2-3 days *Return to ER if you should have weakness numbness tingling loss of vision chest pain dizziness or any new, worsening or concerning symptoms Prescriptions: No Action multivitamin [Multiple Vitamins] 1 EACH tablet 1 tab PO DAILY Qty: 0 RF: 0 cholecalciferol (vitamin D3) [Vitamin D3] 2,000 UNIT tablet 2,000 unit PO DAILY Qty: 0 RF: 0 warfarin 5 mg tablet See Rx Instructions .ROUTE .COMPLEX Qty: 90 RF: 3 clobetasol 0.05 % ointment 1 applic topical BID PRN (Reason: as directed) Qty: 30 RF: 3 finasteride 5 mg tablet 5 mg PO Q OTHER DAY Qty: 90 RF: 3 tamsulosin 0.4 mg capsule 0.8 mg PO BEDTIME Qty: 180 RF: 3 metoprolol succinate 100 MG tablet extended release 24 hr 100 mg PO QAM RF: 0 Iron High Potency 27 mg tablet 27 mg PO DAILY RF: 0 Ocuvite 30unit 5mg 150mg 1 cap PO DAILY RF: 0 metoprolol succinate [Toprol XL] 25 mg tablet extended release 24 hr 25 mg PO BEDTIME RF: 0 atorvastatin 40 mg tablet 40 mg PO DAILY RF: 0 Referrals: Oleksandr Pinto DO [Primary Care Provider] -
[2020-12-24 02:50] LABS: INR 2.8 (0.9-1.3); Prothrombin Time 31.6 SECONDS (10.1-12.7)
[2020-12-24 02:53] LABS: PTT Partial Thromboplastin Tim 46 SECONDS (26.4-36.2)
[2020-12-24 02:55] LABS: Alanine Aminotransferase 26 IU/L (<50); Albumin 3.6 g/dL (3.5-5.0); Albumin Globulin Ratio 1.2 (1.0-2.8); Alkaline Phosphatase 99 U/L (38-126); Aspartate Aminotransferase 27 IU/L (17-59); BUN Creatinine Ratio 20.9 (6-22); Bilirubin Total 0.9 mg/dL (0.2-1.3); Blood Urea Nitrogen 23 mg/dL (9-20); Calcium 8.3 mg/dL (8.4-10.2); Carbon Dioxide 28 mmol/L (22-32); Chloride 105 mmol/L (98-107); Creatine Kinase 56 U/L (55-170); Estimated Glomerular Filt Rate > 60.0 mL/min (>60); Globulin 3.1 g/dL (1.7-4.1); Glucose 126 mg/dL (80-110); HEMOLYSIS < 15 (0-50); Potassium 3.9 mmol/L (3.4-5.1); Sodium 134 mmol/L (137-145); Total Protein 6.7 g/dL (6.3-8.2)
[2020-12-24 02:57] LABS: Add Manual Diff / Slide Review NO; Basophils Absolute Auto 0 /uL (0-100); Basophils Percent Auto 0.6 % (0-2); Eosinophils Absolute Auto 200 /uL (0-450); Eosinophils Percent Auto 3.8 % (2-4); Hematocrit 42.3 % (41-53); Hemoglobin 13.7 g/dL (13.5-17.5); Lymphocytes Absolute Auto 1200 /uL (1100-4500); Lymphocytes Percent Auto 18.7 % (25-40); Mean Corpuscular HGB Conc 32.3 % (30-36); Mean Corpuscular Hemoglobin 29.1 PG (26-34); Mean Corpuscular Volume 90.1 fL (80-100); Monocytes Absolute Auto 700 /uL (0-900); Monocytes Percent Auto 11.2 % (3-14); Neutrophils Absolute Auto 4200 /uL (1500-7000); Neutrophils Percent Auto 65.7 % (50-75); Platelet Count 299 X10^3/uL (150-400); Red Cell Distribution Width 14.4 % (11.6-14.8); White Blood Cell Count 6.4 X10^3/uL (4.5-11.0)
[2020-12-24 03:06] LABS: Troponin I < 0.012 ng/mL (0.01-0.034)
[2020-12-24 03:30] VITALS: BP 158/72; PULSE 78; RESP 14; O2SAT 98
[2020-12-24 03:36] LABS: UR Morphine/Opiate cutoff 300 Negative (Negative); Ur Creatinine Normal (Normal); Ur Specific Gravity Normal (Normal); Urine Amphetamines Negative (Negative); Urine Barbiturates Negative (Negative); Urine Benzodiazepines Negative (Negative); Urine Cocaine Negative (Negative); Urine MDMA Negative (Negative); Urine Methadone Negative (Negative); Urine Methamphetamines Negative (Negative); Urine Oxycodone Negative (Negative); Urine Phencyclidine Negative (Negative); Urine Tetrahydrocannabinol Negative (Negative); Urine Tricyclic Antidepressant Negative (Negative); Urine pH Normal (Normal)
== END 2020-12-24 03:30 | disposition home or self-care (01) ==
PROVIDERS: Emergency Provider Emergency Medicine; Family Provider Family Medicine; PCP Family Medicine
DX: H53.2 Diplopia (principal); I48.91 Unspecified atrial fibrillation; Z79.01 Long term (current) use of anticoagulants
CPT/HCPCS: 36415; 70450; 80053; 80305; 81003; 82550; 84484; 85025; 85610; 85730; 93005; 93010; 99284

== ENCOUNTER → 2021-01-08 13:25 | Outpatient (CLI) | payer MEDICARE, OTHER, SELFPAY ==
[2021-01-08 14:47] LABS: Prostate Specific Antigen 1.64 ng/mL (0.10-4.00)
== END ==
PROVIDERS: Family Provider Family Medicine; PCP Family Medicine; Referring Provider Specialist; Visit Provider Specialist
DX: R97.20 Elevated prostate specific antigen [PSA] (principal)
CPT/HCPCS: 36415; 84153

== ENCOUNTER 2021-01-28 10:12 | Emergency (ER) | payer MEDICARE, OTHER, SELFPAY ==
[2021-01-28] VITALS (8 sets, daily range): BP systolic 147–192; BP diastolic 84–110; PULSE 62–101; RESP 16; TEMP 36.2; O2SAT 87–99; BMI 24.4
--- NOTE | 2021-01-28 10:39 | ED.GENADULT ---
HPI - General Adult General Chief complaint: Abdominal Pain Stated complaint: Pain on Lower left side Time Seen by Provider: 01/28/21 10:26 Source: patient Mode of arrival: Ambulatory Limitations: no limitations History of Present Illness HPI narrative: Patient is an 80-year-old male here for evaluation of left lower quadrant abdominal pain. Patient states it is a dull pain that started this morning. He urinated this morning without any problems and did not change his abdominal pain. He also had a bowel movement this morning that was normal for him and again did not change any of his abdominal pain. Has not had any fevers. No nausea or vomiting. No trauma. Has not tried anything for symptoms prior to arrival. Related Data Home Medications Medication Instructions Recorded Confirmed multivitamin [Multiple Vitamins] 1 tab PO DAILY #0 03/06/13 01/18/21 cholecalciferol (vitamin D3) 2,000 unit PO DAILY #0 tab 08/03/16 01/18/21 [Vitamin D3] Iron High Potency 27 mg PO DAILY 04/09/19 01/18/21 Ocuvite 30unit 5mg 150mg 1 cap PO DAILY 04/09/19 01/18/21 metoprolol succinate 100 mg PO QAM 04/09/19 01/18/21 metoprolol succinate [Toprol XL] 25 mg PO BEDTIME 07/18/20 01/18/21 atorvastatin 40 mg tablet 40 mg PO DAILY 11/19/20 01/18/21 Previous Rx's Medication Instructions Recorded clobetasol 0.05 % topical ointment 1 applic TOPICAL BID PRN #30 gram 12/10/19 warfarin 5 mg tablet See Rx Instructions .ROUTE 12/25/19 .COMPLEX #90 tab finasteride 5 mg tablet 5 mg PO Q OTHER DAY #90 tab 10/14/20 tamsulosin 0.4 mg capsule 0.8 mg PO BEDTIME #180 cap 10/14/20 Allergies Allergy/AdvReac Type Severity Reaction Status Date / Time No Known Drug Allergies Allergy Verified 12/30/20 08:40 Review of Systems Constitutional Constitutional: Denies fever(s) and Denies headache(s) ENT Ears, Nose, Mouth, and Throat: Denies headache(s) Cardiovascular Cardiovascular: Denies chest pain and Denies dyspnea Respiratory Respiratory: Denies dyspnea Gastrointestinal Gastrointestinal: Reports abdominal pain, Denies melena, Denies hematochezia, Denies change in bowel habits, Denies constipation, Denies diarrhea, Denies nausea and Denies vomiting Genitourinary Genitourinary: Denies dysuria, Denies genital pain, Denies testicular pain, Denies urinary incontinence and Denies urinary urgency Genitourinary: Denies dysuria, Denies urinary incontinence and Denies urinary urgency Musculoskeletal Musculoskeletal: Denies arthralgias, Denies back pain and Denies myalgias Integumentary/Breasts Skin/Breast: Denies rash Neurologic Neurologic: Denies behavioral changes and Denies headache(s) Psychiatric Psychiatric: Denies behavioral changes Hematologic/Lymphatic On Anticoagulants: Yes Allergic/Immunologic Allergic/Immunologic: Denies urticaria Patient History Medical History Acute dehydration Atrial fibrillation Atrial fibrillation with rapid ventricular response Atypical chest pain Balance problem 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) Cervical somatic dysfunction Chest pressure Chronic atrial fibrillation (01/02/18) Chronic bilateral low back pain without sciatica Cranial somatic dysfunction Diplopia Erectile dysfunction Essential hypertension (02/16/16) Fatigue Foot stiffness History of elevated PSA Incomplete emptying of bladder (02/16/16) Left arm weakness Low HDL (under 40) Nocturia Nocturia Orthostatic lightheadedness Pelvic somatic dysfunction Pleural effusion Segmental and somatic dysfunction of lumbar region Segmental and somatic dysfunction of rib cage Segmental and somatic dysfunction of sacral region Segmental and somatic dysfunction of thoracic region Somatic dysfunction of both lower extremities Stiff neck Vasovagal near syncope Vitamin D deficiency Surgical History Hx of cholecystectomy Status post cholecystectomy Family History Mother CVA (cerebral vascular accident) Father Diabetes mellitus Brother Renal failure Social History marital status: number of children: 1 household members: none occupational status: previously employed Previous occupational history: [employer] Smoking Status: Former smoker alcohol intake: former caffeine: Yes Smoking Status: Former smoker alcohol intake frequency: holidays/special occasions only Substance Use Type: does not use Exam Initial Vital Signs Initial Vital Signs: Vital Signs Temperature 97.2 F L 01/28/21 10:15 Pulse Rate 88 01/28/21 10:15 Respiratory Rate 16 01/28/21 10:15 Blood Pressure 172/93 H 01/28/21 10:15 Pulse Oximetry 97 01/28/21 10:15 Const General: cooperative and comfortable Limitations: mental status not altered HENMT Head: normal to inspection and normocephalic Resp Effort & Inspection: normal respiratory effort Auscultation: clear to auscultation bilaterally Cardio Rate: regular rate Rhythm: regular rhythm GI Inspection: non-distended Palpation: soft, No firm and tender (Left lower quadrant) Back/Spine/Pelvis Back: CVA tenderness left Skin Lesions: no lesions Rashes: no rashes Neuro General: patient alert and patient awake Cognition: normal cognition Speech: speech normal Extrem General: normal to inspection and capillary refill normal Psych Appearance: grossly normal and well kempt Scores GCS Rubin coma scale eye opening: Spontaneous [place] coma scale verbal response: Orientated [place] coma scale motor response: Obey commands Rub[place] coma scale total score: 15 Course Orders Ordered: ED Orders 01/28/21 10:41 Complete Blood Count AUTO DIFF Stat Comprehensive Metabolic Panel Stat Lactate (Lactic Acid) Stat Lipase Stat Partial Thromboplastin Time Stat Prothrombin Time INR Stat 01/28/21 11:19 CT abdomen pelvis w con Stat 01/28/21 12:50 Urinalysis and Microscopic Stat Discontinued Medications Sodium Chloride (Normal Saline 0.9%) 1,000 mls @ 500 mls/hr IV BOLUS ONE Stop: 01/28/21 12:25 Last Infusion: 01/28/21 12:51 Dose: 0 mls/hr Documented by: Admin: 01/28/21 10:49 Dose: 500 mls/hr Documented by: ADRY Vital Signs Vital signs: Vital Signs - 8 hr 01/28/21 10:15 01/28/21 10:41 01/28/21 10:42 Temperature 97.2 F L Pulse Rate 88 81 86 Respiratory Rate 16 Blood Pressure 172/93 H 151/86 H Pulse Oximetry 97 93 99 01/28/21 11:00 01/28/21 11:23 01/28/21 11:30 Temperature Pulse Rate 80 62 101 H Respiratory Rate Blood Pressure 151/91 H 148/105 H Pulse Oximetry 98 87 L 93 01/28/21 11:31 Temperature Pulse Rate 95 H Respiratory Rate Blood Pressure 192/110 H Pulse Oximetry 96 Medical Decision Making Lab Data Lab results reviewed: Yes I reviewed the patient's lab results. Result diagrams: 01/28/21 10:41 01/28/21 10:41 Labs: Lab Results 01/28/21 01/28/21 01/28/21 Range/Units 10:41 10:41 10:41 WBC 8.2 (4.5-11.0) X10^3/uL RBC 4.68 (4.5-5.9) X10^6/uL Hgb 14.1 (13.5-17.5) g/dL Hct 41.9 (41-53) % MCV 89.6 (80-100) fL MCH 30.1 (26-34) PG MCHC 33.6 (30-36) % RDW 14.4 (11.6-14.8) % Plt Count 279 (150-400) X10^3/uL Neut % (Auto) 73.2 (50-75) % Lymph % (Auto) 13.3 L (25-40) % Walsh % (Auto) 10.5 (3-14) % Eos % (Auto) 2.2 (2-4) % Baso % (Auto) 0.8 (0-2) % Neut # (Auto) 6000 (9868-8631) /uL Lymph # (Auto) 1100 (8596-0527) /uL Walsh # (Auto) 900 (0-900) /uL Eos # (Auto) 200 (0-450) /uL Baso # (Auto) 100 (0-100) /uL PT 29.5 H (10.1-12.7) SECONDS INR 2.6 H (0.9-1.3) APTT 45 H (26.4-36.2) SECONDS Sodium 136 L (137-145) mmol/L Potassium 4.4 (3.4-5.1) mmol/L Chloride 103 (98-107) mmol/L Carbon Dioxide 27 (22-32) mmol/L BUN 23 H (9-20) mg/dL Creatinine 1.15 (0.66-1.25) mg/dL Estimated GFR > 60.0 (>60) mL/min BUN/Creatinine Ratio 20.0 (6-22) Glucose 103 (80-110) mg/dL Lactate (0.7-2.1) mmol/L Calcium 9.0 (8.4-10.2) mg/dL Total Bilirubin 1.1 (0.2-1.3) mg/dL AST 30 (17-59) IU/L ALT 27 (<50) IU/L Alkaline Phosphatase 87 (38-126) U/L Total Protein 6.8 (6.3-8.2) g/dL Albumin 3.8 (3.5-5.0) g/dL Globulin 3.0 (1.7-4.1) g/dL Albumin/Globulin Ratio 1.3 (1.0-2.8) Lipase (23-300) U/L Urine Color Urine Appearance Urine pH (4.5-8.0) Ur Specific [place] (1.000-1.035) Urine Protein (Negative) Urine Glucose (UA) (Negative) g/dL Urine Ketones (NEGATIVE) Urine Occult Blood (Negative) Urine Nitrate (Negative) Urine Bilirubin (NEGATIVE) Urine Urobilinogen (0.2) E.U./dL Ur Leukocyte Esterase (NEGATIVE) Urine RBC (0-5/HPF) Urine WBC (0-5/HPF) Urine Bacteria (None) Ur Culture Indicated? 01/28/21 01/28/21 01/28/21 Range/Units 10:41 10:41 12:50 WBC (4.5-11.0) X10^3/uL RBC (4.5-5.9) X10^6/uL Hgb (13.5-17.5) g/dL Hct (41-53) % MCV (80-100) fL MCH (26-34) PG MCHC (30-36) % RDW (11.6-14.8) % Plt Count (150-400) X10^3/uL Neut % (Auto) (50-75) % Lymph % (Auto) (25-40) % Walsh % (Auto) (3-14) % Eos % (Auto) (2-4) % Baso % (Auto) (0-2) % Neut # (Auto) (0982-6823) /uL Lymph # (Auto) (0282-3908) /uL Walsh # (Auto) (0-900) /uL Eos # (Auto) (0-450) /uL Baso # (Auto) (0-100) /uL PT (10.1-12.7) SECONDS INR (0.9-1.3) APTT (26.4-36.2) SECONDS Sodium (137-145) mmol/L Potassium (3.4-5.1) mmol/L Chloride (98-107) mmol/L Carbon Dioxide (22-32) mmol/L BUN (9-20) mg/dL Creatinine (0.66-1.25) mg/dL Estimated GFR (>60) mL/min BUN/Creatinine Ratio (6-22) Glucose (80-110) mg/dL Lactate 1.4 (0.7-2.1) mmol/L Calcium (8.4-10.2) mg/dL Total Bilirubin (0.2-1.3) mg/dL AST (17-59) IU/L ALT (<50) IU/L Alkaline Phosphatase (38-126) U/L Total Protein (6.3-8.2) g/dL Albumin (3.5-5.0) g/dL Globulin (1.7-4.1) g/dL Albumin/Globulin Ratio (1.0-2.8) Lipase 260 (23-300) U/L Urine Color Yellow Urine Appearance Sl cloudy Urine pH 6.5 (4.5-8.0) Ur Specific [place] 1.010 (1.000-1.035) Urine Protein Negative (Negative) Urine Glucose (UA) Negative (Negative) g/dL Urine Ketones Negative (NEGATIVE) Urine Occult Blood 3+ H (Negative) Urine Nitrate Negative (Negative) Urine Bilirubin Negative (NEGATIVE) Urine Urobilinogen 0.2 (0.2) E.U./dL Ur Leukocyte Esterase Trace H (NEGATIVE) Urine RBC 30-100/hpf H (0-5/HPF) Urine WBC 0-1/hpf (0-5/HPF) Urine Bacteria None seen (None) Ur Culture Indicated? Cult not indicated Imaging Data CT scan - abdomen/pelvis: Radiologist's Impression: [address] [id number] Scan ReportAddendum Patient: Nestor Mercedes CMR#: [id number]: 8Acct:[id number]/Sex: 80 / MDate of Service: 01/28/21Loc: EDAccession Number: [id number] Procedure: CT abdomen pelvis w con Ordering Provider: Mohan Riggins D.O. ADDENDUMThis report includes an Addendum and supersedes previous reports for this exam. PROCEDURE: CT ABDOMEN PELVIS W CON INDICATIONS: Left-sided abdominal pain TECHNIQUE: After the administration of intravenous contrast, 5 mm thick sections acquired from the diaphragm to the symphysis. 5 mm coronal and sagittal reformats were acquired. For radiation dose reduction, the following was used: automated exposure control, adjustment of mA and/or kV according to patient size. COMPARISON: CT, THORAX WITH CONTRAST, 06/24/2015, 10:02. FINDINGS: Image quality: Excellent. ABDOMEN: Lung bases: Minimal bilateral pleural effusions with areas of superimposed dependent change. Fibrotic like changes are noted in the peripheral aspect of the lung bases. Heart is enlarged. Solid organs: Liver is enlarged. Hepatic steatosis is present. Gallbladder has been removed. Biliary system is non dilated. Pancreas enhances normally. Spleen is normal in size and enhancement. No adrenal nodules. Kidneys demonstrate normal size and enhancement, without hydronephrosis. Simple 4.5 cm left renal cyst, mildly decreased in size compared to prior exam. Peritoneum and bowel: Bowel loops demonstrate normal wall thickness and caliber. No free fluid or air. Colonic diverticula are present without visualized inflammatory change. Nodes and vessels: No retroperitoneal or mesenteric adenopathy by size criteria. Aorta and inferior vena cava are normal in size. Miscellaneous: Hiatal hernia is present. PELVIS: Genitourinary: Bladder wall thickness is normal. Prostate is markedly enlarged with calcification. There is soft tissue density within the posterior inferior bladder which appears to be come contiguous with the enlarged prostate gland. Miscellaneous: Fat containing inguinal hernias are present. Bones: Sclerosis is present within the right iliac bone suggestive of bone island. L5 pars defect is noted. No vertebral body compression fractures. IMPRESSION: 1. Minimal effusions/dependent changes within the bases bilaterally as well as overall chronic interstitial lung disease. 2. No acute visualized intra-abdominal or pelvic process. 3. Diverticulosis. 4. The soft tissue density within the bladder, appearing to be contiguous with the enlarged prostate gland. Recommend correlation with PSA levels. Further evaluation with cystoscopy is recommended if clinically indicated. Dictated by: Linda Hester M.D. on 01/28/2021 at 11:58 Approved by: Linda Hester M.D. on 01/28/2021 at 12:06 ADDENDUM: Correction to the above: Liver is enlarged. Dictated by: Linda Hester M.D. on 01/28/2021 at 12:10 Approved by: Linda Hester M.D. on 01/28/2021 at 12:10 Addendum Dictated By:Linda Hester MDAddendum Signed By:Addendum Cosigned By:DD/ TD/TT: 01/28/21 PROCEDURE: CT ABDOMEN PELVIS W CON INDICATIONS: Left-sided abdominal pain TECHNIQUE: After the administration of intravenous contrast, 5 mm thick sections acquired from the diaphragm to the symphysis. 5 mm coronal and sagittal reformats were acquired. For radiation dose reduction, the following was used: automated exposure control, adjustment of mA and/or kV according to patient size. COMPARISON: CT, THORAX WITH CONTRAST, 06/24/2015, 10:02. FINDINGS: Image quality: Excellent. ABDOMEN: Lung bases: Minimal bilateral pleural effusions with areas of superimposed dependent change. Fibrotic like changes are noted in the peripheral aspect of the lung bases. Heart is enlarged. Solid organs: Liver is normal in size and enhancement. Hepatic steatosis is present. Gallbladder has been removed. Biliary system is non dilated. Pancreas enhances normally. Spleen is normal in size and enhancement. No adrenal nodules. Kidneys demonstrate normal size and enhancement, without hydronephrosis. Simple 4.5 cm left renal cyst, mildly decreased in size compared to prior exam. Peritoneum and bowel: Bowel loops demonstrate normal wall thickness and caliber. No free fluid or air. Colonic diverticula are present without visualized inflammatory change. Nodes and vessels: No retroperitoneal or mesenteric adenopathy by size criteria. Aorta and inferior vena cava are normal in size. Miscellaneous: Hiatal hernia is present. PELVIS: Genitourinary: Bladder wall thickness is normal. Prostate is markedly enlarged with calcification. There is soft tissue density within the posterior inferior bladder which appears to be come contiguous with the enlarged prostate gland. Miscellaneous: Fat containing inguinal hernias are present. Bones: Sclerosis is present within the right iliac bone suggestive of bone island. L5 pars defect is noted. No vertebral body compression fractures. IMPRESSION: 1. Minimal effusions/dependent changes within the bases bilaterally as well as overall chronic interstitial lung disease. 2. No acute visualized intra-abdominal or pelvic process. 3. Diverticulosis. 4. The soft tissue density within the bladder, appearing to be contiguous with the enlarged prostate gland. Recommend correlation with PSA levels. Further evaluation with cystoscopy is recommended if clinically indicated. Dictated by: Linda Hester M.D. on 01/28/2021 at 11:58 Approved by: Linda Hester M.D. on 01/28/2021 at 12:06 [facility] Narrative Medical decision making narrative: Patient did have left-sided abdominal pain however was not a surgical abdomen. His labs are unremarkable. His CT scan shows no acute pathology. He did have blood in his urine however there were no ureteral/kidney stones seen on his CT scan. Does not appear to be infectious etiology. Does not appear to be a surgical etiology. He has no skin changes over the area that would make a concern for zoster. Unsure the exact etiology however I did discuss with him return precautions to include development of a rash or worsening pain. We did discuss his hematuria informed him that he needed to contact his primary doctor regarding this and also the other incidental findings noted on the CT scan. He expressed understanding and agreement. Discharge Plan Departure Patient Disposition: Home Clinical Impression: Abdominal pain, Hematuria Instructions: DI for Abdominal Pain-Adult, DI for Hematuria Activity Restrictions/Additional Instructions: Your labs and CT scan today are very reassuring. Unfortunately it does not give us an exact diagnosis of what is causing your abdominal pain however does not appear to be anything infectious or surgical. You did have blood in your urine today and it is important that you contact your primary doctor to follow up with this finding. If your abdominal pain worsens or you develop any other new symptoms to include a rash please return to the emergency department. Continue all of your medications as directed. Prescriptions: No Action multivitamin [Multiple Vitamins] 1 EACH tablet 1 tab PO DAILY Qty: 0 RF: 0 cholecalciferol (vitamin D3) [Vitamin D3] 2,000 UNIT tablet 2,000 unit PO DAILY Qty: 0 RF: 0 warfarin 5 mg tablet See Rx Instructions .ROUTE .COMPLEX Qty: 90 RF: 3 clobetasol 0.05 % ointment 1 applic topical BID PRN (Reason: as directed) Qty: 30 RF: 3 finasteride 5 mg tablet 5 mg PO Q OTHER DAY Qty: 90 RF: 3 tamsulosin 0.4 mg capsule 0.8 mg PO BEDTIME Qty: 180 RF: 3 metoprolol succinate 100 MG tablet extended release 24 hr 100 mg PO QAM RF: 0 Iron High Potency 27 mg tablet 27 mg PO DAILY RF: 0 Ocuvite 30unit 5mg 150mg 1 cap PO DAILY RF: 0 metoprolol succinate [Toprol XL] 25 mg tablet extended release 24 hr 25 mg PO BEDTIME RF: 0 atorvastatin 40 mg tablet 40 mg PO DAILY RF: 0 Referrals: Oleksandr Pinto DO [Primary Care Provider] -
[2021-01-28] MEDS: SODIUM CHLORIDE 0.9% 1,000 ML 500 ML IV (10:49)
[2021-01-28 10:53] LABS: Add Manual Diff / Slide Review NO; Basophils Absolute Auto 100 /uL (0-100); Basophils Percent Auto 0.8 % (0-2); Eosinophils Absolute Auto 200 /uL (0-450); Eosinophils Percent Auto 2.2 % (2-4); Hematocrit 41.9 % (41-53); Hemoglobin 14.1 g/dL (13.5-17.5); Lymphocytes Absolute Auto 1100 /uL (1100-4500); Lymphocytes Percent Auto 13.3 % (25-40); Mean Corpuscular HGB Conc 33.6 % (30-36); Mean Corpuscular Hemoglobin 30.1 PG (26-34); Mean Corpuscular Volume 89.6 fL (80-100); Monocytes Absolute Auto 900 /uL (0-900); Monocytes Percent Auto 10.5 % (3-14); Neutrophils Absolute Auto 6000 /uL (1500-7000); Neutrophils Percent Auto 73.2 % (50-75); Platelet Count 279 X10^3/uL (150-400); Red Blood Cell Count 4.68 X10^6/uL (4.5-5.9); Red Cell Distribution Width 14.4 % (11.6-14.8); White Blood Cell Count 8.2 X10^3/uL (4.5-11.0)
[2021-01-28 10:57] LABS: INR 2.6 (0.9-1.3); Prothrombin Time 29.5 SECONDS (10.1-12.7)
[2021-01-28 10:59] LABS: PTT Partial Thromboplastin Tim 45 SECONDS (26.4-36.2)
[2021-01-28 11:05] LABS: Lactate (Lactic Acid) 1.4 mmol/L (0.7-2.1)
[2021-01-28 11:06] LABS: Alanine Aminotransferase 27 IU/L (<50); Albumin 3.8 g/dL (3.5-5.0); Albumin Globulin Ratio 1.3 (1.0-2.8); Alkaline Phosphatase 87 U/L (38-126); Aspartate Aminotransferase 30 IU/L (17-59); Bilirubin Total 1.1 mg/dL (0.2-1.3); Blood Urea Nitrogen 23 mg/dL (9-20); Carbon Dioxide 27 mmol/L (22-32); Chloride 103 mmol/L (98-107); Estimated Glomerular Filt Rate > 60.0 mL/min (>60); Glucose 103 mg/dL (80-110); HEMOLYSIS 17 (0-50); Lipase 260 U/L (23-300); Potassium 4.4 mmol/L (3.4-5.1); Sodium 136 mmol/L (137-145); Total Protein 6.8 g/dL (6.3-8.2)
--- NOTE | 2021-01-28 11:19 | DI.CT.S_ITS ---
PROCEDURE: CT ABDOMEN PELVIS W CON INDICATIONS: Left-sided abdominal pain TECHNIQUE: After the administration of intravenous contrast, 5 mm thick sections acquired from the diaphragm to the symphysis. 5 mm coronal and sagittal reformats were acquired. For radiation dose reduction, the following was used: automated exposure control, adjustment of mA and/or kV according to patient size. COMPARISON: CT, THORAX WITH CONTRAST, 06/24/2015, 10:02. FINDINGS: Image quality: Excellent. ABDOMEN: Lung bases: Minimal bilateral pleural effusions with areas of superimposed dependent change. Fibrotic like changes are noted in the peripheral aspect of the lung bases. Heart is enlarged. Solid organs: Liver is normal in size and enhancement. Hepatic steatosis is present. Gallbladder has been removed. Biliary system is non dilated. Pancreas enhances normally. Spleen is normal in size and enhancement. No adrenal nodules. Kidneys demonstrate normal size and enhancement, without hydronephrosis. Simple 4.5 cm left renal cyst, mildly decreased in size compared to prior exam. Peritoneum and bowel: Bowel loops demonstrate normal wall thickness and caliber. No free fluid or air. Colonic diverticula are present without visualized inflammatory change. Nodes and vessels: No retroperitoneal or mesenteric adenopathy by size criteria. Aorta and inferior vena cava are normal in size. Miscellaneous: Hiatal hernia is present. PELVIS: Genitourinary: Bladder wall thickness is normal. Prostate is markedly enlarged with calcification. There is soft tissue density within the posterior inferior bladder which appears to be come contiguous with the enlarged prostate gland. Miscellaneous: Fat containing inguinal hernias are present. Bones: Sclerosis is present within the right iliac bone suggestive of bone island. L5 pars defect is noted. No vertebral body compression fractures. IMPRESSION: 1. Minimal effusions/dependent changes within the bases bilaterally as well as overall chronic interstitial lung disease. 2. No acute visualized intra-abdominal or pelvic process. 3. Diverticulosis. 4. The soft tissue density within the bladder, appearing to be contiguous with the enlarged prostate gland. Recommend correlation with PSA levels. Further evaluation with cystoscopy is recommended if clinically indicated. Dictated by: Linda Hester M.D. on 01/28/2021 at 11:58 Approved by: Linda Hester M.D. on 01/28/2021 at 12:06
[2021-01-28 12:54] LABS: Appearance Urine UA SL CLOUDY; Bilirubin Urine UA NEGATIVE (NEGATIVE); Color Urine UA YELLOW; Glucose Urine UA NEGATIVE (Negative); Ketones Urine UA NEGATIVE (NEGATIVE); Leukocyte Esterase Urine UA TRACE (NEGATIVE); Nitrite Urine UA NEGATIVE (Negative); Occult Blood Urine UA 3+ (Negative); Protein Urine UA NEGATIVE (Negative); Urobilinogen Urine UA 0.2 E.U./dL (0.2); pH Urine UA 6.5 (4.5-8.0)
[2021-01-28 12:55] LABS: Bacteria Urine None Seen
[2021-01-28 13:03] LABS: Culture Indicated Urine Cult Not Indicated; RBC Urine 30-100/HPF (0-5/HPF); WBC Urine 0-1/HPF (0-5/HPF)
== END 2021-01-28 13:30 | disposition home or self-care (01) ==
PROVIDERS: Emergency Provider Emergency Medicine; Family Provider Family Medicine; PCP Family Medicine
DX: R10.32 Left lower quadrant pain (principal); R31.9 Hematuria, unspecified
CPT/HCPCS: 36415; 74177; 80053; 81001; 83605; 83690; 85025; 85610; 85730; 96360; 96361; 99284; Q9967

== ENCOUNTER 2021-03-15 13:52 | Emergency (ER) | payer MEDICARE, OTHER, SELFPAY ==
[2021-03-15 14:04] VITALS: BP 135/77; PULSE 85; RESP 18; TEMP 36.6; O2SAT 98
--- NOTE | 2021-03-15 14:09 | DI.RAD.S_ITS ---
PROCEDURE: XR CHEST 1V INDICATIONS: chest pain TECHNIQUE: One view of the chest was acquired. COMPARISON: [facility], CR, XR CHEST 1V, 08/07/2020, 20:59. FINDINGS: Surgical changes and devices: None. Lungs and pleura: Small bilateral pleural effusion and bibasilar atelectasis are seen. Mild pulmonary vascular congestion is also noted with suggestion of pulmonary edema. No definite focal infiltrate. Mediastinum: Mediastinal contours appear normal. Heart size is enlarged. Bones and chest wall: No suspicious bony lesions. Overlying soft tissues appear unremarkable. IMPRESSION: Mild congestive changes and trace bilateral pleural effusion. Bibasilar atelectasis and mild pulmonary edema. No gross pneumothorax. Dictated by: Marco Antonio Gross M.D. on 03/15/2021 at 15:09 Approved by: Marco Antonio Gross M.D. on 03/15/2021 at 15:10
--- NOTE | 2021-03-15 14:10 | DI.CT.S_ITS ---
PROCEDURE: CT HEAD/BRAIN WO CON INDICATIONS: dizziness, vision changes TECHNIQUE: Noncontrast 4.5 mm thick angled axial sections acquired from the foramen magnum to the vertex, with coronal and sagittal reformats. For radiation dose reduction, the following was used: automated exposure control, adjustment of mA and/or kV according to patient size. COMPARISON: [facility], CT, CT HEAD/BRAIN WO CON, 08/29/2020, 11:27. [facility], CT, CT STROKE, 10/05/2020, 13:10. [facility], CT, CT HEAD/BRAIN WO CON, 12/24/2020, 2:43. FINDINGS: Image quality: Excellent. CSF spaces: Basal cisterns are patent. No extra-axial fluid collections. The ventricles are symmetric in size and shape. Brain: No intracranial bleeds or masses. There is cerebral volume loss for age, with resultant ventricular and sulcal prominence. There are periventricular and deep white matter chronic small vessel ischemic changes. There is intracranial internal carotid artery atherosclerosis. Skull and face: Calvarium and visualized facial bones appear intact, without suspicious lesions. Sinuses: There is focal opacification present within the anterior aspect of the left ethmoid air cells. Visualized sinuses and mastoids are otherwise relatively clear. IMPRESSION: Unremarkable noncontrast head CT for age. Stable from prior. Dictated by: Rafal Jackson M.D. on 03/15/2021 at 13:56 Approved by: Rafal Jackson M.D. on 03/15/2021 at 13:58
[2021-03-15 14:30] VITALS: PULSE 92; RESP 24; O2SAT 93
[2021-03-15 14:31] VITALS: BP 147/81; PULSE 81; RESP 22; O2SAT 98
[2021-03-15 14:38] LABS: Add Manual Diff / Slide Review NO; Basophils Absolute Auto 0 /uL (0-100); Basophils Percent Auto 0.6 % (0-2); Eosinophils Absolute Auto 300 /uL (0-450); Eosinophils Percent Auto 4.1 % (2-4); Hematocrit 42.8 % (41-53); Hemoglobin 14.4 g/dL (13.5-17.5); INR 2.2 (0.9-1.3); Lymphocytes Absolute Auto 1100 /uL (1100-4500); Lymphocytes Percent Auto 14.3 % (25-40); Mean Corpuscular HGB Conc 33.7 % (30-36); Mean Corpuscular Hemoglobin 30.1 PG (26-34); Mean Corpuscular Volume 89.4 fL (80-100); Monocytes Absolute Auto 800 /uL (0-900); Neutrophils Absolute Auto 5300 /uL (1500-7000); Platelet Count 307 X10^3/uL (150-400); Prothrombin Time 25.8 SECONDS (10.1-12.7); Red Blood Cell Count 4.79 X10^6/uL (4.5-5.9); Red Cell Distribution Width 14.7 % (11.6-14.8); White Blood Cell Count 7.5 X10^3/uL (4.5-11.0)
[2021-03-15 14:41] LABS: PTT Partial Thromboplastin Tim 46 SECONDS (26.4-36.2)
--- NOTE | 2021-03-15 14:43 | ED.GENADULT ---
HPI - General Adult General Chief complaint: Shortness of Breath/Dyspnea Stated complaint: lightheaded, have trouble walking, unbalanced Time Seen by Provider: 03/15/21 14:35 Source: patient Mode of arrival: Ambulatory Limitations: no limitations History of Present Illness HPI narrative: Patient is an 80-year-old male who was here for evaluation of several days of feeling unbalanced and having problems walking. He does feel like the symptoms do seem to come and go. He does not describe a room spinning/vertigo sensation but more of a lightheadedness. He is on anticoagulation for atrial fibrillation. He is in atrial fibrillation but is rate controlled. He is not having any chest pain or shortness of breath. He has not fallen. He does have ringing in his ears but this is baseline for him. No headaches. No neck pain. Has not tried anything for symptoms prior to arrival. Related Data Home Medications Medication Instructions Recorded Confirmed multivitamin [Multiple Vitamins] 1 tab PO DAILY #0 03/06/13 03/04/21 cholecalciferol (vitamin D3) 2,000 unit PO DAILY #0 tab 08/03/16 03/04/21 [Vitamin D3] Iron High Potency 27 mg PO DAILY 04/09/19 03/04/21 Ocuvite 30unit 5mg 150mg 1 cap PO DAILY 04/09/19 03/04/21 metoprolol succinate 100 mg PO QAM 04/09/19 03/04/21 metoprolol succinate [Toprol XL] 25 mg PO BEDTIME 07/18/20 03/04/21 atorvastatin 40 mg tablet 40 mg PO DAILY 11/19/20 03/04/21 Previous Rx's Medication Instructions Recorded clobetasol 0.05 % topical ointment 1 applic TOPICAL BID PRN #30 gram 12/10/19 finasteride 5 mg tablet 5 mg PO Q OTHER DAY #90 tab 10/14/20 tamsulosin 0.4 mg capsule 0.8 mg PO BEDTIME #180 cap 10/14/20 warfarin 5 mg tablet See Rx Instructions .ROUTE 02/01/21 .COMPLEX #90 tab Allergies Allergy/AdvReac Type Severity Reaction Status Date / Time No Known Drug Allergies Allergy Verified 03/04/21 09:55 Review of Systems Constitutional Constitutional: Denies chills, Denies fatigue, Denies fever(s), Denies frequent falls and Denies headache(s) Eyes Eyes: Reports blurry vision ENT Ears, Nose, Mouth, and Throat: Denies vertigo, Reports dizziness, Denies headache(s), Reports disequilibrium, Denies sinus pressure and Denies sore throat Cardiovascular Cardiovascular: Denies chest pain, Denies syncope, Denies rapid heart rate and Denies dyspnea Respiratory Respiratory: Denies cough and Denies dyspnea Gastrointestinal Gastrointestinal: Denies change in bowel habits, Denies nausea and Denies vomiting Genitourinary Genitourinary: Denies dysuria Genitourinary: Denies dysuria Musculoskeletal Musculoskeletal: Denies arthralgias and Denies myalgias Integumentary/Breasts Skin/Breast: Denies rash Neurologic Neurologic: Denies confusion, Denies vertigo, Reports dizziness, Denies syncope, Denies frequent falls, Denies headache(s) and Reports disequilibrium Psychiatric Psychiatric: Denies confusion Endocrine Endocrine: Denies fatigue Hematologic/Lymphatic On Anticoagulants: Yes Allergic/Immunologic Allergic/Immunologic: Denies urticaria Patient History Medical History Acute dehydration Atrial fibrillation Atrial fibrillation with rapid ventricular response Atypical chest pain Balance problem 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) Cervical somatic dysfunction Chest pressure Chronic atrial fibrillation (01/02/18) Chronic bilateral low back pain without sciatica Cranial somatic dysfunction Diplopia Erectile dysfunction Essential hypertension (02/16/16) Fatigue Foot stiffness History of elevated PSA Incomplete emptying of bladder (02/16/16) Left arm weakness Low HDL (under 40) Medicare annual wellness visit, subsequent Nocturia Nocturia Orthostatic lightheadedness Pelvic somatic dysfunction Pleural effusion Segmental and somatic dysfunction of lumbar region Segmental and somatic dysfunction of rib cage Segmental and somatic dysfunction of sacral region Segmental and somatic dysfunction of thoracic region Somatic dysfunction of both lower extremities Stiff neck Vasovagal near syncope Vitamin D deficiency Surgical History Hx of cholecystectomy Status post cholecystectomy Family History Mother CVA (cerebral vascular accident) Father Diabetes mellitus Brother Renal failure Social History marital status: number of children: 1 household members: none occupational status: previously employed Previous occupational history: [employer] Smoking Status: Former smoker alcohol intake: former caffeine: Yes Smoking Status: Former smoker alcohol intake frequency: holidays/special occasions only Substance Use Type: does not use Exam Initial Vital Signs Initial Vital Signs: Vital Signs Temperature 97.9 F 03/15/21 14:04 Pulse Rate 85 03/15/21 14:04 Respiratory Rate 18 03/15/21 14:04 Blood Pressure 135/77 03/15/21 14:04 Pulse Oximetry 98 03/15/21 14:04 Const General: cooperative, comfortable and well developed Limitations: mental status not altered HENMT Head: normal to inspection and normocephalic Ears: hearing grossly normal bilaterally Nose: external nose normal Face and sinus: normal facial exam Mouth: oral mucosae normal Eyes Visual Tang: normal visual tang by confrontation Alignment and Position: alignment normal Eyelids: eyelids normal Pupils: PERRL EOM: EOM intact bilaterally Chest Chest: No tenderness Resp Effort & Inspection: normal respiratory effort Auscultation: clear to auscultation bilaterally Cardio Rate: regular rate Rhythm: abnormal rhythm GI Inspection: non-distended Palpation: soft Back/Spine/Pelvis Back: No CVA tenderness Skin Lesions: no lesions Rashes: no rashes Neuro General: patient alert, patient awake and patient oriented x3 Cranial Nerves: CN's II-XI intact bilaterally Cognition: normal cognition Speech: speech normal Gait: normal gait Motor: muscle tone normal throughout Sensory Exam: no sensory deficits noted Extrem General: capillary refill normal and No edema Psych Appearance: grossly normal and well kempt Scores GCS [place] coma scale eye opening: Spontaneous [place] coma scale verbal response: Orientated [place] coma scale motor response: Obey commands [place] coma scale total score: 15 Course Orders Ordered: ED Orders 03/15/21 14:09 XR chest 1V Stat 03/15/21 14:10 CT head/brain wo con Stat 03/15/21 14:20 Complete Blood Count AUTO DIFF Stat Comprehensive Metabolic Panel Stat Lipase Stat Partial Thromboplastin Time Stat Prothrombin Time INR Stat Troponin & CK Cardiac Panel Stat 03/15/21 14:28 EKG-12 Lead Stat 03/15/21 14:39 COVID19 -Nasal swab/Pre-Proc Stat Vital Signs Vital signs: Vital Signs - 8 hr 03/15/21 14:04 Temperature 97.9 F Pulse Rate 85 Respiratory Rate 18 Blood Pressure 135/77 Pulse Oximetry 98 Medical Decision Making Medical Records Medical records reviewed: Yes I reviewed the patient's medical records. Lab Data Lab results reviewed: Yes I reviewed the patient's lab results. Result diagrams: 03/15/21 14:20 03/15/21 14:20 Labs: Lab Results 03/15/21 03/15/21 03/15/21 Range/Units 14:20 14:20 14:20 WBC 7.5 (4.5-11.0) X10^3/uL RBC 4.79 (4.5-5.9) X10^6/uL Hgb 14.4 (13.5-17.5) g/dL Hct 42.8 (41-53) % MCV 89.4 (80-100) fL MCH 30.1 (26-34) PG MCHC 33.7 (30-36) % RDW 14.7 (11.6-14.8) % Plt Count 307 (150-400) X10^3/uL Neut % (Auto) 71.0 (50-75) % Lymph % (Auto) 14.3 L (25-40) % [place]ane % (Auto) 10.0 (3-14) % Eos % (Auto) 4.1 H (2-4) % Baso % (Auto) 0.6 (0-2) % Neut # (Auto) 5300 (0229-9743) /uL Lymph # (Auto) 1100 (5459-8138) /uL [place] # (Auto) 800 (0-900) /uL Eos # (Auto) 300 (0-450) /uL Baso # (Auto) 0 (0-100) /uL PT 25.8 H (10.1-12.7) SECONDS INR 2.2 H (0.9-1.3) APTT 46 H (26.4-36.2) SECONDS Sodium 137 (137-145) mmol/L Potassium 4.5 (3.4-5.1) mmol/L Chloride 104 (98-107) mmol/L Carbon Dioxide 27 (22-32) mmol/L BUN 21 H (9-20) mg/dL Creatinine 1.23 (0.66-1.25) mg/dL Estimated GFR 56.3 L (>60) mL/min BUN/Creatinine Ratio 17.1 (6-22) Glucose 96 (80-110) mg/dL Calcium 9.1 (8.4-10.2) mg/dL Total Bilirubin 1.4 H (0.2-1.3) mg/dL AST 30 (17-59) IU/L ALT 26 (<50) IU/L Alkaline Phosphatase 97 (38-126) U/L Total Creatine Kinase 60 (55-170) U/L CK-MB (CK-2) TNP CK-MB (CK-2) Rel Index TNP Troponin I < 0.012 (0.01-0.034) ng/mL Total Protein 7.2 (6.3-8.2) g/dL Albumin 4.0 (3.5-5.0) g/dL Globulin 3.2 (1.7-4.1) g/dL Albumin/Globulin Ratio 1.3 (1.0-2.8) Lipase 312 H (23-300) U/L SARS-CoV-2 (PCR) (Negative) 03/15/21 Range/Units 14:39 WBC (4.5-11.0) X10^3/uL RBC (4.5-5.9) X10^6/uL Hgb (13.5-17.5) g/dL Hct (41-53) % MCV (80-100) fL MCH (26-34) PG MCHC (30-36) % RDW (11.6-14.8) % Plt Count (150-400) X10^3/uL Neut % (Auto) (50-75) % Lymph % (Auto) (25-40) % [place] % (Auto) (3-14) % Eos % (Auto) (2-4) % Baso % (Auto) (0-2) % Neut # (Auto) (5311-7524) /uL Lymph # (Auto) (6894-4581) /uL [place] # (Auto) (0-900) /uL Eos # (Auto) (0-450) /uL Baso # (Auto) (0-100) /uL PT (10.1-12.7) SECONDS INR (0.9-1.3) APTT (26.4-36.2) SECONDS Sodium (137-145) mmol/L Potassium (3.4-5.1) mmol/L Chloride (98-107) mmol/L Carbon Dioxide (22-32) mmol/L BUN (9-20) mg/dL Creatinine (0.66-1.25) mg/dL Estimated GFR (>60) mL/min BUN/Creatinine Ratio (6-22) Glucose (80-110) mg/dL Calcium (8.4-10.2) mg/dL Total Bilirubin (0.2-1.3) mg/dL AST (17-59) IU/L ALT (<50) IU/L Alkaline Phosphatase (38-126) U/L Total Creatine Kinase (55-170) U/L CK-MB (CK-2) CK-MB (CK-2) Rel Index Troponin I (0.01-0.034) ng/mL Total Protein (6.3-8.2) g/dL Albumin (3.5-5.0) g/dL Globulin (1.7-4.1) g/dL Albumin/Globulin Ratio (1.0-2.8) Lipase (23-300) U/L SARS-CoV-2 (PCR) Negative (Negative) Urine Dip Bedside Urine Glucose Negative Bedside Urine Bilirubin - Negative Bedside Urine Ketone - Negative Urine Specific [place] 1.025 Bedside Urine Occult Blood - Negative Bedside Urine pH 6 Bedside Urine Protein - Negative Bedside Urine Urobilinogen - Negative Bedside Urine Nitrite - Negative Bedside Urine Leukocytes - Negative Esterase Point of care testing: Urine Dip Bedside Urine Glucose Negative Bedside Urine Bilirubin - Negative Bedside Urine Ketone - Negative Urine Specific [place] 1.025 Bedside Urine Occult Blood - Negative Bedside Urine pH 6 Bedside Urine Protein - Negative Bedside Urine Urobilinogen - Negative Bedside Urine Nitrite - Negative Bedside Urine Leukocytes - Negative Esterase Imaging Data Chest x-ray: Radiologist's Impression: [address] [id number] ReportSigned Patient: Nestor Mercedes CMR#: [id number]: 8Acct:[id number]/Sex: 80 / MDate of Service: 03/15/21Loc: EDAccession Number: [id number] Procedure: XR chest 1V Ordering Provider: Mohan Riggins D.O. PROCEDURE: XR CHEST 1V INDICATIONS: chest pain TECHNIQUE: One view of the chest was acquired. COMPARISON: [facility], CR, XR CHEST 1V, 08/07/2020, 20:59. FINDINGS: Surgical changes and devices: None. Lungs and pleura: Small bilateral pleural effusion and bibasilar atelectasis are seen. Mild pulmonary vascular congestion is also noted with suggestion of pulmonary edema. No definite focal infiltrate. Mediastinum: Mediastinal contours appear normal. Heart size is enlarged. Bones and chest wall: No suspicious bony lesions. Overlying soft tissues appear unremarkable. IMPRESSION: Mild congestive changes and trace bilateral pleural effusion. Bibasilar atelectasis and mild pulmonary edema. No gross pneumothorax. Dictated by: Marco Antonio Gross M.D. on 03/15/2021 at 15:09 Approved by: Marco Antonio Gross M.D. on 03/15/2021 at 15:10 CT scan - head: Radiologist's Impression: [address] [id number] Scan ReportSigned Patient: Nestor Mercedes CMR#: [id number]: 8Acct:[id number]/Sex: 80 / MDate of Service: 03/15/21Loc: EDAccession Number: [id number] Procedure: CT head/brain wo con Ordering Provider: Mohan Riggins D.O. PROCEDURE: CT HEAD/BRAIN WO CON INDICATIONS: dizziness, vision changes TECHNIQUE: Noncontrast 4.5 mm thick angled axial sections acquired from the foramen magnum to the vertex, with coronal and sagittal reformats. For radiation dose reduction, the following was used: automated exposure control, adjustment of mA and/or kV according to patient size. COMPARISON: [facility], CT, CT HEAD/BRAIN WO CON, 08/29/2020, 11:27. [facility], CT, CT STROKE, 10/05/2020, 13:10. [facility], CT, CT HEAD/BRAIN WO CON, 12/24/2020, 2:43. FINDINGS: Image quality: Excellent. CSF spaces: Basal cisterns are patent. No extra-axial fluid collections. The ventricles are symmetric in size and shape. Brain: No intracranial bleeds or masses. There is cerebral volume loss for age, with resultant ventricular and sulcal prominence. There are periventricular and deep white matter chronic small vessel ischemic changes. There is intracranial internal carotid artery atherosclerosis. Skull and face: Calvarium and visualized facial bones appear intact, without suspicious lesions. Sinuses: There is focal opacification present within the anterior aspect of the left ethmoid air cells. Visualized sinuses and mastoids are otherwise relatively clear. IMPRESSION: Unremarkable noncontrast head CT for age. Stable from prior. Dictated by: Rafal Jackson M.D. on 03/15/2021 at 13:56 Approved by: Rafal Jackson M.D. on 03/15/2021 at 13:58 ECG Data Attestation: I personally reviewed and interpreted this ECG as follows: Prior ECG tracings: not available for review Interpretation: Atrial fibrillation Ventricular rate of 72 Normal axis Normal QRS Normal QTC No ST T wave changes MDM Narrative Medical decision making narrative: Patient is afebrile. Has a normal neurologic exam. Head CT is unremarkable. AFib but rate controlled on his EKG. He states that he does feel better being here in the emergency department was able to get up and walk around without having any problems. No headache. Has a relatively normal neurologic exam. Symptoms been going on for the past couple days. Afebrile. I feel we can hold on further workup. Will have him contact his primary provider for a follow-up to discuss any future studies to include either an MRI or potentially physical therapy to help with his balance. He states he feels safe going home. Was given return precautions. He expressed understanding and agreement. Discharge Plan Departure Patient Disposition: Home Clinical Impression: Intermittent lightheadedness Instructions: DI for Dizziness-Nonvertigo Activity Restrictions/Additional Instructions: Continue to take all of your medications as directed. Contact your primary provider for follow-up. Return to the emergency department for any new or worsening symptoms Prescriptions: No Action multivitamin [Multiple Vitamins] 1 EACH tablet 1 tab PO DAILY Qty: 0 RF: 0 cholecalciferol (vitamin D3) [Vitamin D3] 2,000 UNIT tablet 2,000 unit PO DAILY Qty: 0 RF: 0 warfarin 5 mg tablet See Rx Instructions .ROUTE .COMPLEX Qty: 90 RF: 3 clobetasol 0.05 % ointment 1 applic topical BID PRN (Reason: as directed) Qty: 30 RF: 3 finasteride 5 mg tablet 5 mg PO Q OTHER DAY Qty: 90 RF: 3 tamsulosin 0.4 mg capsule 0.8 mg PO BEDTIME Qty: 180 RF: 3 metoprolol succinate 100 MG tablet extended release 24 hr 100 mg PO QAM RF: 0 Iron High Potency 27 mg tablet 27 mg PO DAILY RF: 0 Ocuvite 30unit 5mg 150mg 1 cap PO DAILY RF: 0 metoprolol succinate [Toprol XL] 25 mg tablet extended release 24 hr 25 mg PO BEDTIME RF: 0 atorvastatin 40 mg tablet 40 mg PO DAILY RF: 0 Referrals: Oleksandr Pinto DO [Primary Care Provider] -
[2021-03-15 14:44] LABS: Alanine Aminotransferase 26 IU/L (<50); Albumin Globulin Ratio 1.3 (1.0-2.8); Alkaline Phosphatase 97 U/L (38-126); Aspartate Aminotransferase 30 IU/L (17-59); BUN Creatinine Ratio 17.1 (6-22); Bilirubin Total 1.4 mg/dL (0.2-1.3); Blood Urea Nitrogen 21 mg/dL (9-20); Calcium 9.1 mg/dL (8.4-10.2); Carbon Dioxide 27 mmol/L (22-32); Chloride 104 mmol/L (98-107); Creatine Kinase 60 U/L (55-170); Estimated Glomerular Filt Rate 56.3 mL/min (>60); Globulin 3.2 g/dL (1.7-4.1); Glucose 96 mg/dL (80-110); HEMOLYSIS < 15 (0-50); Lipase 312 U/L (23-300); Potassium 4.5 mmol/L (3.4-5.1); Sodium 137 mmol/L (137-145); Total Protein 7.2 g/dL (6.3-8.2)
[2021-03-15 14:56] LABS: Troponin I < 0.012 ng/mL (0.01-0.034)
[2021-03-15 15:00] LABS: COVID19 -Nasal RAPID Negative (Negative)
[2021-03-15 16:22] VITALS: O2SAT 88
[2021-03-15 16:24] VITALS: BP 134/81; PULSE 74; O2SAT 96
== END 2021-03-15 16:31 | disposition home or self-care (01) ==
PROVIDERS: Emergency Provider Emergency Medicine; Family Provider Family Medicine; PCP Family Medicine
DX: R42 Dizziness and giddiness (principal); R07.9 Chest pain, unspecified; I48.91 Unspecified atrial fibrillation; Z79.01 Long term (current) use of anticoagulants; Z20.822 Contact with and (suspected) exposure to COVID-19
CPT/HCPCS: 36415; 70450; 71045; 80053; 81003; 82550; 83690; 84484; 85025; 85610; 85730; 87635; 93005; 99283; 99284; C9803

== ENCOUNTER 2021-04-02 05:40 | Emergency (ER) | payer MEDICARE, OTHER, SELFPAY ==
[2021-04-02] VITALS (9 sets, daily range): BP systolic 133–155; BP diastolic 73–85; PULSE 79–92; RESP 16–37; TEMP 36.6–36.9; O2SAT 96–98; BMI 23.7
--- NOTE | 2021-04-02 05:45 | DI.RAD.S_ITS ---
PROCEDURE: XR CHEST 1V INDICATIONS: Chest pain TECHNIQUE: One view of the chest was acquired. COMPARISON: [facility], CT, THORAX WITH CONTRAST, 06/24/2015, 10:02. [facility], CR, XR CHEST 1V, 03/15/2021, 14:43. FINDINGS: Surgical changes and devices: None. Lungs and pleura: Lungs are clear. No pleural effusions or pneumothorax. Pleural/parenchymal thickening/scarring noted in the costophrenic angles of the lung bases bilaterally. 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 Heart mildly enlarged Bones and chest wall: No suspicious bony lesions. Overlying soft tissues appear unremarkable. IMPRESSION: No acute cardiopulmonary disease process. Dictated by: Shahida Elliott MD, PhD on 04/02/2021 at 8:44 Approved by: Shahida Elliott MD, PhD on 04/02/2021 at 8:47
--- NOTE | 2021-04-02 05:57 | ED.CHESTPAIN ---
HPI - Chest Pain <Mohan Riggins DO - Last Filed: 04/03/21 15:04> General Chief Complaint: Chest Pain Stated Complaint: Having heart attack Time Seen by Provider: 04/02/21 05:42 Source: patient Mode of arrival: Ambulatory Limitations: no limitations History of Present Illness HPI narrative: 80-year-old male with a history of atrial fibrillation who is anticoagulation here for evaluation of back pain and chest pain. He states the symptoms started approximately 2 hours prior to arrival here in the emergency department. He woke up to urinate and shortly after he woke up he developed discomfort in his back. He was able to urinate without any problems. He did lay down afterwards the symptoms seem to improve somewhat but then returned. He then started to develop some chest discomfort. No shortness of breath. Has not tried anything for the symptoms prior to arrival Related Data Home Medications Medication Instructions Recorded Confirmed multivitamin [Multiple Vitamins] 1 tab PO DAILY #0 03/06/13 03/04/21 cholecalciferol (vitamin D3) 2,000 unit PO DAILY #0 tab 08/03/16 03/04/21 [Vitamin D3] Iron High Potency 27 mg PO DAILY 04/09/19 03/04/21 Ocuvite 30unit 5mg 150mg 1 cap PO DAILY 04/09/19 03/04/21 metoprolol succinate 100 mg PO QAM 04/09/19 03/04/21 metoprolol succinate [Toprol XL] 25 mg PO BEDTIME 07/18/20 03/04/21 atorvastatin 40 mg tablet 40 mg PO DAILY 11/19/20 03/04/21 Previous Rx's Medication Instructions Recorded clobetasol 0.05 % topical ointment 1 applic TOPICAL BID PRN #30 gram 12/10/19 finasteride 5 mg tablet 5 mg PO Q OTHER DAY #90 tab 10/14/20 tamsulosin 0.4 mg capsule 0.8 mg PO BEDTIME #180 cap 10/14/20 warfarin 5 mg tablet See Rx Instructions .ROUTE 02/01/21 .COMPLEX #90 tab Allergies Allergy/AdvReac Type Severity Reaction Status Date / Time No Known Drug Allergies Allergy Verified 03/04/21 09:55 Review of Systems <DO Evy Abdul Last Filed: 04/03/21 15:04> Constitutional Constitutional: Reports system reviewed and no additional complaints, except as documented Cardiovascular Cardiovascular: Reports chest pain and Denies dyspnea Respiratory Respiratory: Denies dyspnea Gastrointestinal Gastrointestinal: Reports system reviewed and no additional complaints, except as documented, Denies abdominal pain, Denies nausea and Denies vomiting Genitourinary Genitourinary: Denies dysuria Genitourinary: Denies dysuria Musculoskeletal Musculoskeletal: Reports back pain Integumentary/Breasts Skin/Breast: Reports system reviewed and no additional complaints, except as documented Neurologic Neurologic: Reports system reviewed and no additional complaints, except as documented Hematologic/Lymphatic On Anticoagulants: Yes Allergic/Immunologic Allergic/Immunologic: Reports system reviewed and no additional complaints, except as documented Patient History <Mohan Riggins DO - Last Filed: 04/03/21 15:04> Medical History Acute dehydration Atrial fibrillation Atrial fibrillation with rapid ventricular response Atypical chest pain Balance problem 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) Cervical somatic dysfunction Chest pressure Chronic atrial fibrillation (01/02/18) Chronic bilateral low back pain without sciatica Cranial somatic dysfunction Diplopia Erectile dysfunction Essential hypertension (02/16/16) Fatigue Foot stiffness History of elevated PSA Incomplete emptying of bladder (02/16/16) Left arm weakness Low HDL (under 40) Medicare annual wellness visit, subsequent Nocturia Nocturia Orthostatic lightheadedness Pelvic somatic dysfunction Pleural effusion Segmental and somatic dysfunction of lumbar region Segmental and somatic dysfunction of rib cage Segmental and somatic dysfunction of sacral region Segmental and somatic dysfunction of thoracic region Somatic dysfunction of both lower extremities Stiff neck Vasovagal near syncope Vitamin D deficiency Surgical History Hx of cholecystectomy Status post cholecystectomy Family History Mother CVA (cerebral vascular accident) Father Diabetes mellitus Brother Renal failure Social History marital status: number of children: 1 household members: none occupational status: previously employed Previous occupational history: [employer] Smoking Status: Former smoker alcohol intake: former caffeine: Yes Smoking Status: Former smoker alcohol intake frequency: holidays/special occasions only Substance Use Type: does not use Exam <Mohan Riggins DO - Last Filed: 04/03/21 15:04> Initial Vital Signs Initial Vital Signs: Vital Signs Temperature 98.5 F 04/02/21 05:51 Pulse Rate 84 04/02/21 05:51 Respiratory Rate 20 04/02/21 05:51 Blood Pressure 155/78 H 04/02/21 05:51 Pulse Oximetry 98 04/02/21 05:51 Const General: cooperative and comfortable Limitations: mental status not altered HENMT Head: normal to inspection and normocephalic Resp Effort & Inspection: normal respiratory effort Auscultation: clear to auscultation bilaterally Cardio Rate: regular rate Rhythm: regular rhythm Heart Sounds: murmur GI Inspection: non-distended Palpation: soft Back/Spine/Pelvis Other: Discomfort is reproducible with palpation over the right-sided rhomboids. Skin Lesions: no lesions Rashes: no rashes Neuro General: patient alert and patient awake Extrem General: normal to inspection and No edema Psych Appearance: grossly normal and well kempt <Cleopatra Wick DO - Last Filed: 04/02/21 10:32> Initial Vital Signs Initial Vital Signs: Vital Signs Temperature 98.5 F 04/02/21 05:51 Pulse Rate 84 04/02/21 05:51 Respiratory Rate 20 04/02/21 05:51 Blood Pressure 155/78 H 04/02/21 05:51 Pulse Oximetry 98 04/02/21 05:51 Scores <Mohan Riggins DO - Last Filed: 04/03/21 15:04> GCS Rubin coma scale eye opening: Spontaneous Rubin coma scale verbal response: Orientated Rubin coma scale motor response: Obey commands [place] coma scale total score: 15 Course <Mohan Riggins DO - Last Filed: 04/03/21 15:04> Orders Ordered: ED Orders 04/02/21 05:45 XR chest 1V Stat EKG-12 Lead Stat 04/02/21 05:55 Complete Blood Count AUTO DIFF Stat Comprehensive Metabolic Panel Stat Lipase Stat Troponin & CK Cardiac Panel Stat 04/02/21 08:00 Troponin & CK Cardiac Panel Stat Vital Signs Vital signs: Vital Signs - 8 hr 04/02/21 05:51 04/02/21 05:55 04/02/21 06:00 Temperature 98.5 F Pulse Rate 84 92 H 89 Respiratory Rate 20 35 H 37 H Blood Pressure 155/78 H Pulse Oximetry 98 98 98 04/02/21 06:30 04/02/21 07:00 04/02/21 07:30 Temperature Pulse Rate 92 H 84 79 Respiratory Rate 19 19 18 Blood Pressure Pulse Oximetry 97 97 96 04/02/21 07:39 04/02/21 08:00 04/02/21 09:40 Temperature 97.8 F Pulse Rate 85 84 85 Respiratory Rate 17 19 16 Blood Pressure 133/73 151/85 H Pulse Oximetry 97 98 98 <Cleopatra Wick DO - Last Filed: 04/02/21 10:32> Orders Ordered: ED Orders 04/02/21 05:45 XR chest 1V Stat EKG-12 Lead Stat 04/02/21 05:55 Complete Blood Count AUTO DIFF Stat Comprehensive Metabolic Panel Stat Lipase Stat Troponin & CK Cardiac Panel Stat 04/02/21 08:00 Troponin & CK Cardiac Panel Stat Vital Signs Vital signs: Vital Signs - 8 hr 04/02/21 05:51 04/02/21 05:55 04/02/21 06:00 Temperature 98.5 F Pulse Rate 84 92 H 89 Respiratory Rate 20 35 H 37 H Blood Pressure 155/78 H Pulse Oximetry 98 98 98 04/02/21 06:30 04/02/21 07:00 04/02/21 07:30 Temperature Pulse Rate 92 H 84 79 Respiratory Rate 19 19 18 Blood Pressure Pulse Oximetry 97 97 96 04/02/21 07:39 04/02/21 08:00 04/02/21 09:40 Temperature 97.8 F Pulse Rate 85 84 85 Respiratory Rate 17 19 16 Blood Pressure 133/73 151/85 H Pulse Oximetry 97 98 98 MDM - Chest Pain <Mohan Riggins DO - Last Filed: 04/03/21 15:04> Medical Records Data Attestation: I reviewed the patient's medical records. Lab Data Attestation: I reviewed the patient's lab results. Result diagrams: 04/02/21 05:55 04/02/21 05:55 Labs: Lab Results 04/02/21 04/02/21 04/02/21 Range/Units 05:55 05:55 05:55 WBC 8.3 (4.5-11.0) X10^3/uL RBC 4.75 (4.5-5.9) X10^6/uL Hgb 14.0 (13.5-17.5) g/dL Hct 42.8 (41-53) % MCV 90.1 (80-100) fL MCH 29.6 (26-34) PG MCHC 32.8 (30-36) % RDW 15.0 H (11.6-14.8) % Plt Count 277 (150-400) X10^3/uL Neut % (Auto) 73.7 (50-75) % Lymph % (Auto) 14.0 L (25-40) % Coffey % (Auto) 10.1 (3-14) % Eos % (Auto) 1.8 L (2-4) % Baso % (Auto) 0.4 (0-2) % Neut # (Auto) 6100 (6127-7841) /uL Lymph # (Auto) 1200 (3922-5572) /uL Coffey # (Auto) 800 (0-900) /uL Eos # (Auto) 200 (0-450) /uL Baso # (Auto) 0 (0-100) /uL Sodium 136 L (137-145) mmol/L Potassium 4.7 (3.4-5.1) mmol/L Chloride 103 (98-107) mmol/L Carbon Dioxide 27 (22-32) mmol/L BUN 20 (9-20) mg/dL Creatinine 1.11 (0.66-1.25) mg/dL Estimated GFR > 60.0 (>60) mL/min BUN/Creatinine Ratio 18.0 (6-22) Glucose 99 (80-110) mg/dL Calcium 8.9 (8.4-10.2) mg/dL Total Bilirubin 2.4 H (0.2-1.3) mg/dL AST 35 (17-59) IU/L ALT 25 (<50) IU/L Alkaline Phosphatase 76 (38-126) U/L Total Creatine Kinase 48 L (55-170) U/L CK-MB (CK-2) TNP CK-MB (CK-2) Rel Index TNP Troponin I < 0.012 (0.01-0.034) ng/mL Total Protein 7.1 (6.3-8.2) g/dL Albumin 4.0 (3.5-5.0) g/dL Globulin 3.1 (1.7-4.1) g/dL Albumin/Globulin Ratio 1.3 (1.0-2.8) Lipase 228 (23-300) U/L 04/02/21 Range/Units 08:00 WBC (4.5-11.0) X10^3/uL RBC (4.5-5.9) X10^6/uL Hgb (13.5-17.5) g/dL Hct (41-53) % MCV (80-100) fL MCH (26-34) PG MCHC (30-36) % RDW (11.6-14.8) % Plt Count (150-400) X10^3/uL Neut % (Auto) (50-75) % Lymph % (Auto) (25-40) % Coffey % (Auto) (3-14) % Eos % (Auto) (2-4) % Baso % (Auto) (0-2) % Neut # (Auto) (7280-3917) /uL Lymph # (Auto) (1271-9526) /uL Coffey # (Auto) (0-900) /uL Eos # (Auto) (0-450) /uL Baso # (Auto) (0-100) /uL Sodium (137-145) mmol/L Potassium (3.4-5.1) mmol/L Chloride (98-107) mmol/L Carbon Dioxide (22-32) mmol/L BUN (9-20) mg/dL Creatinine (0.66-1.25) mg/dL Estimated GFR (>60) mL/min BUN/Creatinine Ratio (6-22) Glucose (80-110) mg/dL Calcium (8.4-10.2) mg/dL Total Bilirubin (0.2-1.3) mg/dL AST (17-59) IU/L ALT (<50) IU/L Alkaline Phosphatase (38-126) U/L Total Creatine Kinase 42 L (55-170) U/L CK-MB (CK-2) TNP CK-MB (CK-2) Rel Index TNP Troponin I < 0.012 (0.01-0.034) ng/mL Total Protein (6.3-8.2) g/dL Albumin (3.5-5.0) g/dL Globulin (1.7-4.1) g/dL Albumin/Globulin Ratio (1.0-2.8) Lipase (23-300) U/L Imaging Data Chest x-ray: Radiologist's Impression: Pleural thickening and/or small pleural effusions with prominent interstitial densities in the mid lower lungs ECG Data Attestation: I personally reviewed and interpreted this ECG as follows: Prior ECG tracings: not available for review Interpretation: Atrial fibrillation Ventricular rate 96 Normal axis Normal QRS Normal QTC No ST T wave changes MDM Narrative Medical decision making narrative: Patient does have reproducible right-sided back pain but is also having chest discomfort. Troponins negative. EKG is reassuring. I do have higher suspicion that this is musculoskeletal but given his chest discomfort repeat troponin necessary. Care turned over to Dr. Wick to follow up on repeat troponin and disposition. <Cleopatra Wick DO - Last Filed: 04/02/21 10:32> Lab Data Attestation: I reviewed the patient's lab results. Labs: Lab Results 04/02/21 04/02/21 04/02/21 Range/Units 05:55 05:55 05:55 WBC 8.3 (4.5-11.0) X10^3/uL RBC 4.75 (4.5-5.9) X10^6/uL Hgb 14.0 (13.5-17.5) g/dL Hct 42.8 (41-53) % MCV 90.1 (80-100) fL MCH 29.6 (26-34) PG MCHC 32.8 (30-36) % RDW 15.0 H (11.6-14.8) % Plt Count 277 (150-400) X10^3/uL Neut % (Auto) 73.7 (50-75) % Lymph % (Auto) 14.0 L (25-40) % Coffey % (Auto) 10.1 (3-14) % Eos % (Auto) 1.8 L (2-4) % Baso % (Auto) 0.4 (0-2) % Neut # (Auto) 6100 (8185-6989) /uL Lymph # (Auto) 1200 (0251-4406) /uL C[place]y # (Auto) 800 (0-900) /uL Eos # (Auto) 200 (0-450) /uL Baso # (Auto) 0 (0-100) /uL Sodium 136 L (137-145) mmol/L Potassium 4.7 (3.4-5.1) mmol/L Chloride 103 (98-107) mmol/L Carbon Dioxide 27 (22-32) mmol/L BUN 20 (9-20) mg/dL Creatinine 1.11 (0.66-1.25) mg/dL Estimated GFR > 60.0 (>60) mL/min BUN/Creatinine Ratio 18.0 (6-22) Glucose 99 (80-110) mg/dL Calcium 8.9 (8.4-10.2) mg/dL Total Bilirubin 2.4 H (0.2-1.3) mg/dL AST 35 (17-59) IU/L ALT 25 (<50) IU/L Alkaline Phosphatase 76 (38-126) U/L Total Creatine Kinase 48 L (55-170) U/L CK-MB (CK-2) TNP CK-MB (CK-2) Rel Index TNP Troponin I < 0.012 (0.01-0.034) ng/mL Total Protein 7.1 (6.3-8.2) g/dL Albumin 4.0 (3.5-5.0) g/dL Globulin 3.1 (1.7-4.1) g/dL Albumin/Globulin Ratio 1.3 (1.0-2.8) Lipase 228 (23-300) U/L 04/02/21 Range/Units 08:00 WBC (4.5-11.0) X10^3/uL RBC (4.5-5.9) X10^6/uL Hgb (13.5-17.5) g/dL Hct (41-53) % MCV (80-100) fL MCH (26-34) PG MCHC (30-36) % RDW (11.6-14.8) % Plt Count (150-400) X10^3/uL Neut % (Auto) (50-75) % Lymph % (Auto) (25-40) % Coffey % (Auto) (3-14) % Eos % (Auto) (2-4) % Baso % (Auto) (0-2) % Neut # (Auto) (4498-7921) /uL Lymph # (Auto) (3363-9523) /uL Coffey # (Auto) (0-900) /uL Eos # (Auto) (0-450) /uL Baso # (Auto) (0-100) /uL Sodium (137-145) mmol/L Potassium (3.4-5.1) mmol/L Chloride (98-107) mmol/L Carbon Dioxide (22-32) mmol/L BUN (9-20) mg/dL Creatinine (0.66-1.25) mg/dL Estimated GFR (>60) mL/min BUN/Creatinine Ratio (6-22) Glucose (80-110) mg/dL Calcium (8.4-10.2) mg/dL Total Bilirubin (0.2-1.3) mg/dL AST (17-59) IU/L ALT (<50) IU/L Alkaline Phosphatase (38-126) U/L Total Creatine Kinase 42 L (55-170) U/L CK-MB (CK-2) TNP CK-MB (CK-2) Rel Index TNP Troponin I < 0.012 (0.01-0.034) ng/mL Total Protein (6.3-8.2) g/dL Albumin (3.5-5.0) g/dL Globulin (1.7-4.1) g/dL Albumin/Globulin Ratio (1.0-2.8) Lipase (23-300) U/L MDM Narrative Medical decision making narrative: I received sign-out from shift manager provider at seen and evaluated patient myself. He is complaining of a right shoulder blade pain which is definitely reproducible palpation. There is a muscle spasm that I feel. It is the exact pain that he feels. He says it hurts to take in a deep breath and to move. 2- troponins. At this time patient's pain is likely musculoskeletal rather than cardiac in nature. Low suspicion for dissection. Discharge Plan Departure Patient Disposition: Home Clinical Impression: Atypical chest pain, Muscle spasm Instructions: DI for Atypical Chest Pain, DI for Muscle Spasm Activity Restrictions/Additional Instructions: *You have been diagnosed with patient will chest pain and muscle spasm *What to do: At this time your back pain is likely from a muscle spasm, recommend increasing movement as tolerated, heating pad, massage *Continue to take medications as directed Tylenol 650 mg every 4-6 hours if needed for [id number] pain *Follow up with your primary care provider in 2-3 days *Return to ER if you should have increasing pain, chest pain, palpitations or any new, worsening or concerning symptoms Prescriptions: No Action multivitamin [Multiple Vitamins] 1 EACH tablet 1 tab PO DAILY Qty: 0 RF: 0 cholecalciferol (vitamin D3) [Vitamin D3] 2,000 UNIT tablet 2,000 unit PO DAILY Qty: 0 RF: 0 warfarin 5 mg tablet See Rx Instructions .ROUTE .COMPLEX Qty: 90 RF: 3 clobetasol 0.05 % ointment 1 applic topical BID PRN (Reason: as directed) Qty: 30 RF: 3 finasteride 5 mg tablet 5 mg PO Q OTHER DAY Qty: 90 RF: 3 tamsulosin 0.4 mg capsule 0.8 mg PO BEDTIME Qty: 180 RF: 3 metoprolol succinate 100 MG tablet extended release 24 hr 100 mg PO QAM RF: 0 Iron High Potency 27 mg tablet 27 mg PO DAILY RF: 0 Ocuvite 30unit 5mg 150mg 1 cap PO DAILY RF: 0 metoprolol succinate [Toprol XL] 25 mg tablet extended release 24 hr 25 mg PO BEDTIME RF: 0 atorvastatin 40 mg tablet 40 mg PO DAILY RF: 0 Referrals: Oleksandr Pinto DO [Primary Care Provider] -
[2021-04-02 06:07] LABS: Add Manual Diff / Slide Review NO; Basophils Absolute Auto 0 /uL (0-100); Basophils Percent Auto 0.4 % (0-2); Eosinophils Absolute Auto 200 /uL (0-450); Eosinophils Percent Auto 1.8 % (2-4); Hematocrit 42.8 % (41-53); Lymphocytes Absolute Auto 1200 /uL (1100-4500); Mean Corpuscular HGB Conc 32.8 % (30-36); Mean Corpuscular Hemoglobin 29.6 PG (26-34); Mean Corpuscular Volume 90.1 fL (80-100); Monocytes Absolute Auto 800 /uL (0-900); Monocytes Percent Auto 10.1 % (3-14); Neutrophils Absolute Auto 6100 /uL (1500-7000); Neutrophils Percent Auto 73.7 % (50-75); Platelet Count 277 X10^3/uL (150-400); Red Blood Cell Count 4.75 X10^6/uL (4.5-5.9); White Blood Cell Count 8.3 X10^3/uL (4.5-11.0)
[2021-04-02 06:16] LABS: Alanine Aminotransferase 25 IU/L (<50); Albumin Globulin Ratio 1.3 (1.0-2.8); Alkaline Phosphatase 76 U/L (38-126); Aspartate Aminotransferase 35 IU/L (17-59); Bilirubin Total 2.4 mg/dL (0.2-1.3); Blood Urea Nitrogen 20 mg/dL (9-20); Calcium 8.9 mg/dL (8.4-10.2); Carbon Dioxide 27 mmol/L (22-32); Chloride 103 mmol/L (98-107); Creatine Kinase 48 U/L (55-170); Estimated Glomerular Filt Rate > 60.0 mL/min (>60); Globulin 3.1 g/dL (1.7-4.1); Glucose 99 mg/dL (80-110); Lipase 228 U/L (23-300); Potassium 4.7 mmol/L (3.4-5.1); Sodium 136 mmol/L (137-145); Total Protein 7.1 g/dL (6.3-8.2)
[2021-04-02 06:18] LABS: HEMOLYSIS 58 (0-50)
[2021-04-02 06:28] LABS: Troponin I < 0.012 ng/mL (0.01-0.034)
[2021-04-02 08:54] LABS: Creatine Kinase 42 U/L (55-170)
[2021-04-02 09:07] LABS: Troponin I < 0.012 ng/mL (0.01-0.034)
== END 2021-04-02 09:40 | disposition home or self-care (01) ==
PROVIDERS: Emergency Medicine; Emergency Provider Emergency Medicine; Family Provider Family Medicine; PCP Family Medicine
DX: R07.89 Other chest pain (principal); M62.838 Other muscle spasm
CPT/HCPCS: 36415; 71045; 80053; 82550; 83690; 84484; 85025; 93005; 93010; 99283; 99284

== ENCOUNTER 2021-06-10 04:42 | Emergency (ER) | payer MEDICARE, OTHER, SELFPAY ==
[2021-06-10] VITALS (13 sets, daily range): BP systolic 127–152; BP diastolic 67–91; PULSE 75–92; RESP 13–53; TEMP 36.1; O2SAT 94–99; BMI 23.7
--- NOTE | 2021-06-10 05:20 | ED_ITS ---
HPI - Chest Pain <Nestor Vera MD - Last Filed: 06/12/21 12:14> General Chief Complaint: Chest Pain Stated Complaint: unable to sleep/chest pain when he coughs Time Seen by Provider: 06/10/21 05:20 Source: patient Mode of arrival: Ambulatory Limitations: no limitations History of Present Illness HPI narrative: Patient here with complaints of reproducible sternal pain with coughing only. No exertional chest pain or dyspnea or sweating or diaphoresis or nausea. Symptoms started yesterday, he does not recall when/with time of the day. Also complains reproducible neck pain and spine pain with arching his neck back and forward. Painful with laying flat as well. He tried Tylenol 2 tablets at once yesterday and did get improvement with the discomfort. Has not taken it since then. Came in this morning because he usually has to get up every air and half to urinate. He could not go back to sleep. Pain is still reproducible here. No recent illness cough cold or congestion. No fever chills. Patient has chronic AFib and is on warfarin Related Data Home Medications Medication Instructions Recorded Confirmed multivitamin (Multiple Vitamins) 1 tab PO DAILY #0 03/06/13 04/08/21 cholecalciferol (vitamin D3) 50 2,000 unit PO DAILY #0 tab 08/03/16 04/08/21 mcg (2,000 unit) tablet (Vitamin D3) Iron High Potency 27 mg PO DAILY 04/09/19 04/08/21 Ocuvite 30unit 5mg 150mg 1 cap PO DAILY 04/09/19 04/08/21 metoprolol succinate 100 mg 100 mg PO QAM 04/09/19 04/08/21 tablet,extended release 24 hr metoprolol succinate 25 mg 25 mg PO BEDTIME 07/18/20 04/08/21 tablet,extended release 24 hr (Toprol XL) atorvastatin 40 mg tablet 40 mg PO DAILY 11/19/20 04/08/21 Previous Rx's Medication Instructions Recorded clobetasol 0.05 % topical ointment 1 applic TOPICAL BID PRN #30 gram 12/10/19 finasteride 5 mg tablet 5 mg PO Q OTHER DAY #90 tab 10/14/20 tamsulosin 0.4 mg capsule 0.8 mg PO BEDTIME #180 cap 10/14/20 warfarin 5 mg tablet See Rx Instructions .ROUTE 02/01/21 .COMPLEX #90 tab Allergies Allergy/AdvReac Type Severity Reaction Status Date / Time No Known Drug Allergies Allergy Verified 04/08/21 10:31 Review of Systems <Nestor Vera MD - Last Filed: 06/12/21 12:14> Review of Systems Narrative: GENERAL: Denies chills, fatigue, malaise, fever, sweats. HEENT: Denies sinus pain, ear pain, sore throat RESPIRATORY: Denies dyspnea, cough CARDIOVASCULAR: Denies chest pain, palpitations GASTROINTESTINAL: Denies nausea, vomiting, abdominal pain : Denies dysuria, frequency, hematuria MUSCULOSKELETAL: Complains muscle or bony pain SKIN: Denies rash, skin lesions NEUROLOGIC: Denies weakness, numbness ROS Unobtainable: All systems reviewed & are unremarkable except as noted in HPI and below Patient History <Nestor Vera MD - Last Filed: 06/12/21 12:14> Medical History Acute dehydration Anticoagulated on warfarin Aortic stenosis, moderate Atrial fibrillation Atrial fibrillation with rapid ventricular response Atypical chest pain Balance problem 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) Cervical somatic dysfunction Chest pressure Chronic atrial fibrillation (01/02/18) Chronic bilateral low back pain without sciatica Cranial somatic dysfunction Diplopia Erectile dysfunction Essential hypertension (02/16/16) Fatigue Foot stiffness History of elevated PSA Incomplete emptying of bladder (02/16/16) Left arm weakness Low HDL (under 40) Medicare annual wellness visit, subsequent Nocturia Nocturia Orthostatic lightheadedness Pelvic somatic dysfunction Physician orders for life-sustaining treatment (POLST) form indicates patient wish for [id number] status Pleural effusion Segmental and somatic dysfunction of lumbar region Segmental and somatic dysfunction of rib cage Segmental and somatic dysfunction of sacral region Segmental and somatic dysfunction of thoracic region Somatic dysfunction of both lower extremities Stiff neck Vasovagal near syncope Vitamin D deficiency Surgical History Hx of cholecystectomy Status post cholecystectomy Family History Mother CVA (cerebral vascular accident) Father Diabetes mellitus Brother Renal failure Social History marital status: number of children: 1 household members: none occupational status: previously employed Previous occupational history: [employer] Smoking Status: Former smoker alcohol intake: former caffeine: Yes Smoking Status: Former smoker alcohol intake frequency: holidays/special occasions only Substance Use Type: does not use Exam <Nestor Vera MD - Last Filed: 06/12/21 12:14> Narrative Exam Narrative: GENERAL: in no distress, not toxic not dyspneic HEAD: Normocephalic. EYES: Pupils equal round No scleral icterus. No injection no discharge ENT: Mucous membranes moist. NECK: Trachea midline. Increased pain of the cervical spine with arching head forward and back and radiates down his spine, pain with rotating his head as well. CARDIOVASCULAR: Irregular irregular rate and rhythm. Reproducible sternal pain with coughing, no pain with deep breath are on palpation. RESPIRATORY: Clear to auscultation. Breath sounds equal bilaterally. No wheezes, rales, or rhonchi. GASTROINTESTINAL: Abdomen soft, non-tender EXTREMITIES: No gross deformities. BACK: No flank tenderness. NEURO: AOx4. SKIN: Warm and dry PSYCH: Not anxious, is cooperative Initial Vital Signs Initial Vital Signs: Vital Signs Temperature 97.0 F L 06/10/21 05:16 Pulse Rate 83 06/10/21 05:16 Respiratory Rate 26 H 06/10/21 05:16 Blood Pressure 137/67 06/10/21 05:16 Pulse Oximetry 97 06/10/21 05:16 <Yunior Ji DO - Last Filed: 06/10/21 19:25> Initial Vital Signs Initial Vital Signs: Vital Signs Temperature 97.0 F L 06/10/21 05:16 Pulse Rate 83 06/10/21 05:16 Respiratory Rate 26 H 06/10/21 05:16 Blood Pressure 137/67 06/10/21 05:16 Pulse Oximetry 97 06/10/21 05:16 Course <Nestor Vera MD - Last Filed: 06/12/21 12:14> Course Course Narrative: 7:00 a.m.. Sign out to Dr Ji, repeat troponin pending. Reassess for improvement after Tylenol given. Orders Ordered: Discontinued Medications Acetaminophen (Acetaminophen 325 Mg Tablet) 650 mg PO NOW ONE Stop: 06/10/21 05:31 Last Admin: 06/10/21 05:37 Dose: 650 mg Documented by: PATRICIOROYLE Vital Signs Vital signs: Vital Signs - 8 hr 06/10/21 05:16 Temperature 97.0 F L Pulse Rate 83 Respiratory Rate 26 H Blood Pressure 137/67 Pulse Oximetry 97 <Yunior Ji DO - Last Filed: 06/10/21 19:25> Course Course Narrative: 7:00 a.m.. Sign out to Dr Ji, repeat troponin pending. Reassess for improvement after Tylenol given. Patient resting comfortably, remains asymptomatic. Repeat troponin unremarkable, patient given return precautions and ready for discharge Orders Ordered: Discontinued Medications Acetaminophen (Acetaminophen 325 Mg Tablet) 650 mg PO NOW ONE Stop: 06/10/21 05:31 Last Admin: 06/10/21 05:37 Dose: 650 mg Documented by: EMI Vital Signs Vital signs: Vital Signs - 8 hr 06/10/21 05:16 Temperature 97.0 F L Pulse Rate 83 Respiratory Rate 26 H Blood Pressure 137/67 Pulse Oximetry 97 MDM - Chest Pain <Nestor Vera MD - Last Filed: 06/12/21 12:14> Differential Diagnosis Differential diagnosis: Likely atypical chest pain, costochondritis and other (Pneumonia/costochondritis/pleurisy/degenerative disc disease) Lab Data Result diagrams: 06/10/21 05:12 06/10/21 05:12 Labs: Lab Results 06/10/21 06/10/21 06/10/21 Range/Units 04:53 05:12 05:12 WBC 6.3 (4.5-11.0) X10^3/uL RBC 4.57 (4.5-5.9) X10^6/uL Hgb 13.5 (13.5-17.5) g/dL Hct 41.2 (41-53) % MCV 90.0 (80-100) fL MCH 29.6 (26-34) PG MCHC 32.9 (30-36) % RDW 14.3 (11.6-14.8) % Plt Count 277 (150-400) X10^3/uL Neut % (Auto) 64.5 (50-75) % Lymph % (Auto) 19.9 L (25-40) % Calvert % (Auto) 12.0 (3-14) % Eos % (Auto) 3.1 (2-4) % Baso % (Auto) 0.5 (0-2) % Neut # (Auto) 4100 (1075-9174) /uL Lymph # (Auto) 1300 (8477-9126) /uL Calvert # (Auto) 800 (0-900) /uL Eos # (Auto) 200 (0-450) /uL Baso # (Auto) 0 (0-100) /uL PT 32.7 H (10.1-12.7) SECONDS INR 2.9 H (0.9-1.3) APTT 48 H (26.4-36.2) SECONDS Sodium (137-145) mmol/L Potassium (3.4-5.1) mmol/L Chloride (98-107) mmol/L Carbon Dioxide (22-32) mmol/L BUN (9-20) mg/dL Creatinine (0.66-1.25) mg/dL Estimated GFR (>60) mL/min BUN/Creatinine Ratio (6-22) Glucose (80-110) mg/dL Calcium (8.4-10.2) mg/dL Total Bilirubin (0.2-1.3) mg/dL AST (17-59) IU/L ALT (<50) IU/L Alkaline Phosphatase (38-126) U/L Total Creatine Kinase (55-170) U/L CK-MB (CK-2) CK-MB (CK-2) Rel Index Troponin I (0.01-0.034) ng/mL Total Protein (6.3-8.2) g/dL Albumin (3.5-5.0) g/dL Globulin (1.7-4.1) g/dL Albumin/Globulin Ratio (1.0-2.8) SARS-CoV-2 (PCR) Negative (Negative) 06/10/21 06/10/21 Range/Units 05:12 08:10 WBC (4.5-11.0) X10^3/uL RBC (4.5-5.9) X10^6/uL Hgb (13.5-17.5) g/dL Hct (41-53) % MCV (80-100) fL MCH (26-34) PG MCHC (30-36) % RDW (11.6-14.8) % Plt Count (150-400) X10^3/uL Neut % (Auto) (50-75) % Lymph % (Auto) (25-40) % Calvert % (Auto) (3-14) % Eos % (Auto) (2-4) % Baso % (Auto) (0-2) % Neut # (Auto) (7850-1347) /uL Lymph # (Auto) (9219-9397) /uL Calvert # (Auto) (0-900) /uL Eos # (Auto) (0-450) /uL Baso # (Auto) (0-100) /uL PT (10.1-12.7) SECONDS INR (0.9-1.3) APTT (26.4-36.2) SECONDS Sodium 136 L (137-145) mmol/L Potassium 4.3 (3.4-5.1) mmol/L Chloride 103 (98-107) mmol/L Carbon Dioxide 27 (22-32) mmol/L BUN 19 (9-20) mg/dL Creatinine 1.14 (0.66-1.25) mg/dL Estimated GFR > 60.0 (>60) mL/min BUN/Creatinine Ratio 16.7 (6-22) Glucose 93 (80-110) mg/dL Calcium 9.2 (8.4-10.2) mg/dL Total Bilirubin 1.7 H (0.2-1.3) mg/dL AST 27 (17-59) IU/L ALT 21 (<50) IU/L Alkaline Phosphatase 84 (38-126) U/L Total Creatine Kinase 62 (55-170) U/L CK-MB (CK-2) TNP CK-MB (CK-2) Rel Index TNP Troponin I < 0.012 < 0.012 (0.01-0.034) ng/mL Total Protein 6.8 (6.3-8.2) g/dL Albumin 3.8 (3.5-5.0) g/dL Globulin 3.0 (1.7-4.1) g/dL Albumin/Globulin Ratio 1.3 (1.0-2.8) SARS-CoV-2 (PCR) (Negative) Imaging Data Chest x-ray: Radiologist's Impression: Read by overnight radiologist stable abnormalities are noted bilaterally. No acute consolidation or effusion is seen. ECG Data Interpretation: Atrial fibrillation rate [address] elevation or depression MDM Narrative Medical decision making narrative: reproducible chest pain reassuring. Will continue with cardiac/laboratory studies. Repeat troponin appropriate. <Yunior Ji DO - Last Filed: 06/10/21 19:25> Lab Data Labs: Lab Results 06/10/21 06/10/21 06/10/21 Range/Units 04:53 05:12 05:12 WBC 6.3 (4.5-11.0) X10^3/uL RBC 4.57 (4.5-5.9) X10^6/uL Hgb 13.5 (13.5-17.5) g/dL Hct 41.2 (41-53) % MCV 90.0 (80-100) fL MCH 29.6 (26-34) PG MCHC 32.9 (30-36) % RDW 14.3 (11.6-14.8) % Plt Count 277 (150-400) X10^3/uL Neut % (Auto) 64.5 (50-75) % Lymph % (Auto) 19.9 L (25-40) % Calvert % (Auto) 12.0 (3-14) % Eos % (Auto) 3.1 (2-4) % Baso % (Auto) 0.5 (0-2) % Neut # (Auto) 4100 (4992-9509) /uL Lymph # (Auto) 1300 (6602-3341) /uL Calvert # (Auto) 800 (0-900) /uL Eos # (Auto) 200 (0-450) /uL Baso # (Auto) 0 (0-100) /uL PT 32.7 H (10.1-12.7) SECONDS INR 2.9 H (0.9-1.3) APTT 48 H (26.4-36.2) SECONDS Sodium (137-145) mmol/L Potassium (3.4-5.1) mmol/L Chloride (98-107) mmol/L Carbon Dioxide (22-32) mmol/L BUN (9-20) mg/dL Creatinine (0.66-1.25) mg/dL Estimated GFR (>60) mL/min BUN/Creatinine Ratio (6-22) Glucose (80-110) mg/dL Calcium (8.4-10.2) mg/dL Total Bilirubin (0.2-1.3) mg/dL AST (17-59) IU/L ALT (<50) IU/L Alkaline Phosphatase (38-126) U/L Total Creatine Kinase (55-170) U/L CK-MB (CK-2) CK-MB (CK-2) Rel Index Troponin I (0.01-0.034) ng/mL Total Protein (6.3-8.2) g/dL Albumin (3.5-5.0) g/dL Globulin (1.7-4.1) g/dL Albumin/Globulin Ratio (1.0-2.8) SARS-CoV-2 (PCR) Negative (Negative) 06/10/21 06/10/21 Range/Units 05:12 08:10 WBC (4.5-11.0) X10^3/uL RBC (4.5-5.9) X10^6/uL Hgb (13.5-17.5) g/dL Hct (41-53) % MCV (80-100) fL MCH (26-34) PG MCHC (30-36) % RDW (11.6-14.8) % Plt Count (150-400) X10^3/uL Neut % (Auto) (50-75) % Lymph % (Auto) (25-40) % Calvert % (Auto) (3-14) % Eos % (Auto) (2-4) % Baso % (Auto) (0-2) % Neut # (Auto) (4769-1825) /uL Lymph # (Auto) (5002-7113) /uL Calvert # (Auto) (0-900) /uL Eos # (Auto) (0-450) /uL Baso # (Auto) (0-100) /uL PT (10.1-12.7) SECONDS INR (0.9-1.3) APTT (26.4-36.2) SECONDS Sodium 136 L (137-145) mmol/L Potassium 4.3 (3.4-5.1) mmol/L Chloride 103 (98-107) mmol/L Carbon Dioxide 27 (22-32) mmol/L BUN 19 (9-20) mg/dL Creatinine 1.14 (0.66-1.25) mg/dL Estimated GFR > 60.0 (>60) mL/min BUN/Creatinine Ratio 16.7 (6-22) Glucose 93 (80-110) mg/dL Calcium 9.2 (8.4-10.2) mg/dL Total Bilirubin 1.7 H (0.2-1.3) mg/dL AST 27 (17-59) IU/L ALT 21 (<50) IU/L Alkaline Phosphatase 84 (38-126) U/L Total Creatine Kinase 62 (55-170) U/L CK-MB (CK-2) TNP CK-MB (CK-2) Rel Index TNP Troponin I < 0.012 < 0.012 (0.01-0.034) ng/mL Total Protein 6.8 (6.3-8.2) g/dL Albumin 3.8 (3.5-5.0) g/dL Globulin 3.0 (1.7-4.1) g/dL Albumin/Globulin Ratio 1.3 (1.0-2.8) SARS-CoV-2 (PCR) (Negative) Discharge Plan Departure Patient Disposition: Home Clinical Impression: Atypical chest pain Instructions: DI for Atypical Chest Pain Activity Restrictions/Additional Instructions: *You have been diagnosed with [atypical chest pain] *What to do: *Please continue to take your regular medications as directed. [ ] New medication prescriptions sent to your pharmacy: [ ] [ ] New medication written as a paper prescription [x ] No new medications given *Please follow up with your primary care provider in 2-3 days, call for an appointment. Let them know you were seen in the Emergency Department and that we ask that you be seen in follow up. We will electronically transmit a record of today's note if your PCP is in our system *If you do not have a primary care provider please contact the [facility] Resource line at [phone]. They will ask some questions about your medical history and help get you set up with a doctor in the community. *Return to Emergency Department if you should have any new, worsening or concerning symptoms, such as [fever greater than 101 F, shaking chills, worsening pain, persistent vomiting or other bothersome symptoms] Prescriptions: No Action multivitamin [Multiple Vitamins] 1 EACH tablet 1 tab PO DAILY Qty: 0 RF: 0 cholecalciferol (vitamin D3) [Vitamin D3] 2,000 UNIT tablet 2,000 unit PO DAILY Qty: 0 RF: 0 warfarin 5 mg tablet See Rx Instructions .ROUTE .COMPLEX Qty: 90 RF: 3 clobetasol 0.05 % ointment 1 applic topical BID PRN (Reason: as directed) Qty: 30 RF: 3 finasteride 5 mg tablet 5 mg PO Q OTHER DAY Qty: 90 RF: 3 tamsulosin 0.4 mg capsule 0.8 mg PO BEDTIME Qty: 180 RF: 3 metoprolol succinate 100 MG tablet extended release 24 hr 100 mg PO QAM RF: 0 Iron High Potency 27 mg tablet 27 mg PO DAILY RF: 0 Ocuvite 30unit 5mg 150mg 1 cap PO DAILY RF: 0 metoprolol succinate [Toprol XL] 25 mg tablet extended release 24 hr 25 mg PO BEDTIME RF: 0 atorvastatin 40 mg tablet 40 mg PO DAILY RF: 0 Referrals: Oleksandr Pinto DO [Primary Care Provider] -
--- NOTE | 2021-06-10 05:30 | DI.RAD.S_ITS ---
PROCEDURE: XR CHEST 1V INDICATIONS: chest pain TECHNIQUE: One view of the chest was acquired. COMPARISON: [facility], CR, XR CHEST 1V, 04/02/2021, 5:47. FINDINGS: Surgical changes and devices: None. Lungs and pleura: Calcified pleural plaques stable compared to prior exams. Pleural-parenchymal scarring involving the lung bases and costophrenic angles bilaterally stable compared to prior examination. Calcified granulomas in the lungs stable. No pleural effusions or pneumothorax. Mediastinum: Mediastinal contours appear normal. Heart size is normal. Bones and chest wall: No suspicious bony lesions. Overlying soft tissues appear unremarkable. IMPRESSION: No acute cardiopulmonary disease process. Dictated by: Shahida Elliott MD, PhD on 06/10/2021 at 8:53 Approved by: Shahida Elliott MD, PhD on 06/10/2021 at 8:54
[2021-06-10 05:37] LABS: INR 2.9 (0.9-1.3); Prothrombin Time 32.7 SECONDS (10.1-12.7)
[2021-06-10] MEDS: ACETAMINOPHEN 325 MG TABLET 650 MG PO (05:37)
[2021-06-10 05:38] LABS: Add Manual Diff / Slide Review NO; Basophils Absolute Auto 0 /uL (0-100); Basophils Percent Auto 0.5 % (0-2); Eosinophils Absolute Auto 200 /uL (0-450); Eosinophils Percent Auto 3.1 % (2-4); Hematocrit 41.2 % (41-53); Hemoglobin 13.5 g/dL (13.5-17.5); Lymphocytes Absolute Auto 1300 /uL (1100-4500); Lymphocytes Percent Auto 19.9 % (25-40); Mean Corpuscular HGB Conc 32.9 % (30-36); Mean Corpuscular Hemoglobin 29.6 PG (26-34); Monocytes Absolute Auto 800 /uL (0-900); Neutrophils Absolute Auto 4100 /uL (1500-7000); Neutrophils Percent Auto 64.5 % (50-75); Platelet Count 277 X10^3/uL (150-400); Red Blood Cell Count 4.57 X10^6/uL (4.5-5.9); Red Cell Distribution Width 14.3 % (11.6-14.8); White Blood Cell Count 6.3 X10^3/uL (4.5-11.0)
[2021-06-10 05:40] LABS: PTT Partial Thromboplastin Tim 48 SECONDS (26.4-36.2)
[2021-06-10 05:41] LABS: Alanine Aminotransferase 21 IU/L (<50); Albumin 3.8 g/dL (3.5-5.0); Albumin Globulin Ratio 1.3 (1.0-2.8); Alkaline Phosphatase 84 U/L (38-126); Aspartate Aminotransferase 27 IU/L (17-59); BUN Creatinine Ratio 16.7 (6-22); Bilirubin Total 1.7 mg/dL (0.2-1.3); Blood Urea Nitrogen 19 mg/dL (9-20); Calcium 9.2 mg/dL (8.4-10.2); Carbon Dioxide 27 mmol/L (22-32); Chloride 103 mmol/L (98-107); Creatine Kinase 62 U/L (55-170); Estimated Glomerular Filt Rate > 60.0 mL/min (>60); Glucose 93 mg/dL (80-110); HEMOLYSIS < 15 (0-50); Potassium 4.3 mmol/L (3.4-5.1); Sodium 136 mmol/L (137-145); Total Protein 6.8 g/dL (6.3-8.2)
[2021-06-10 05:47] LABS: COVID19 -Nasal RAPID Negative (Negative)
[2021-06-10 05:53] LABS: Troponin I < 0.012 ng/mL (0.01-0.034)
[2021-06-10 08:43] LABS: Troponin I < 0.012 ng/mL (0.01-0.034)
== END 2021-06-10 09:40 | disposition home or self-care (01) ==
PROVIDERS: Emergency Medicine; Emergency Provider Emergency Medicine; Family Provider Family Medicine; PCP Family Medicine
DX: R07.89 Other chest pain (principal); R05 Cough; Z79.01 Long term (current) use of anticoagulants; Z20.822 Contact with and (suspected) exposure to COVID-19
CPT/HCPCS: 36415; 71045; 80053; 82550; 84484; 85025; 85610; 85730; 87635; 93005; 99284; C9803

== ENCOUNTER 2021-06-28 13:12 | Emergency (ER) | payer MEDICARE, OTHER, SELFPAY ==
[2021-06-28 13:45] VITALS: BP 132/75; PULSE 87; RESP 17; TEMP 36.4; O2SAT 97; BMI 24.4
--- NOTE | 2021-06-28 13:48 | DI.RAD.S_ITS ---
PROCEDURE: XR CHEST 1V INDICATIONS: Possible stroke TECHNIQUE: One view of the chest was acquired. COMPARISON: [facility], CR, XR CHEST 1V, 06/10/2021, 5:33. [facility], CR, XR CHEST 1V, 04/02/2021, 5:47. FINDINGS: Surgical changes and devices: None. Lungs and pleura: Lungs are abnormal, with relatively large lung volumes suspicious for representing COPD, and there is a mild degree of pulmonary edema. No pleural effusions or pneumothorax. Mediastinum: Mediastinal contours appear normal. Heart size is normal. Bones and chest wall: No suspicious bony lesions. Overlying soft tissues appear unremarkable. IMPRESSION: Pulmonary hyperexpansion consistent with COPD. Mild pulmonary edema versus interstitial prominence related to longstanding smoking history. No aspiration seen. Dictated by: Ishan Osorio M.D. on 06/28/2021 at 14:08 Approved by: Ishan Osorio M.D. on 06/28/2021 at 14:09
--- NOTE | 2021-06-28 13:48 | DI.CT.S_ITS ---
PROCEDURE: CT STROKE INDICATIONS: double vision TECHNIQUE: Noncontrast 4.5 mm thick angled axial sections acquired from the foramen magnum to the vertex, with coronal reformats. For radiation dose reduction, the following was used: automated exposure control, adjustment of mA and/or kV according to patient size. COMPARISON: [facility], CT, CT STROKE, 10/05/2020, 13:10. [facility], CT, CT STROKE, 07/18/2020, 16:47. FINDINGS: Image quality: Excellent. CSF spaces: Basal cisterns are patent. No extra-axial fluid collections. The ventricles are symmetric in size and shape. Brain: No intracranial bleeds or masses. There is cerebral volume loss for age, with resultant ventricular and sulcal prominence. There are periventricular and deep white matter chronic small vessel ischemic changes. There is intracranial internal carotid artery atherosclerosis. Skull and face: Calvarium and visualized facial bones appear intact, without suspicious lesions. Sinuses: Visualized sinuses and mastoids are clear. IMPRESSION: Age related microvascular atherosclerotic change but no evidence of acute stroke, hemorrhage or mass. No contraindication to tPA is found. Findings immediately called to the emergency room physician caring for the patient at 2:00 p.m. This study fulfills neurological imaging criteria for inclusion or exclusion of acute stroke therapies based on available published neurological guidelines. Dictated by: Ishan Osorio M.D. on 06/28/2021 at 14:04 Approved by: Ishan Osorio M.D. on 06/28/2021 at 14:07
[2021-06-28 14:10] VITALS: BP 133/91; PULSE 87; O2SAT 96
--- NOTE | 2021-06-28 14:15 | ED_ITS ---
HPI - Neuro Symptoms/Deficit General Chief Complaint: Neuro Symptoms/Deficit Stated Complaint: Thinks Had a Mini Stroke, Dbl Vision Time Seen by Provider: 06/28/21 13:53 Source: patient Mode of arrival: Ambulatory History of Present Illness HPI Narrative: Patient is a 80-year-old male who arrives the emergency department as a code stroke. He states that approximately 1 hour prior to arrival here in the emergency department he had an episode of double vision. He does not know whether not it was both eyes just 1 eye. He had no other a ssociated symptoms with that. The symptoms had greatly resolved if not completely resolved by the time he arrived here in the emergency department and had completely resolved by the time that I had evaluated him. He is on anticoagulation. Has a history of atrial fibrillation. Has had multiple TIAs in the past. On Anticoagulants: Yes (Warfarin) Related Data Home Medications Medication Instructions Recorded Confirmed multivitamin (Multiple Vitamins) 1 tab PO DAILY #0 03/06/13 04/08/21 cholecalciferol (vitamin D3) 50 2,000 unit PO DAILY #0 tab 08/03/16 04/08/21 mcg (2,000 unit) tablet (Vitamin D3) Iron High Potency 27 mg PO DAILY 04/09/19 04/08/21 Ocuvite 30unit 5mg 150mg 1 cap PO DAILY 04/09/19 04/08/21 metoprolol succinate 100 mg 100 mg PO QAM 04/09/19 04/08/21 tablet,extended release 24 hr metoprolol succinate 25 mg 25 mg PO BEDTIME 07/18/20 04/08/21 tablet,extended release 24 hr (Toprol XL) atorvastatin 40 mg tablet 40 mg PO DAILY 11/19/20 04/08/21 Previous Rx's Medication Instructions Recorded clobetasol 0.05 % topical ointment 1 applic TOPICAL BID PRN #30 gram 12/10/19 finasteride 5 mg tablet 5 mg PO Q OTHER DAY #90 tab 10/14/20 tamsulosin 0.4 mg capsule 0.8 mg PO BEDTIME #180 cap 10/14/20 warfarin 5 mg tablet See Rx Instructions .ROUTE 02/01/21 .COMPLEX #90 tab Allergies Allergy/AdvReac Type Severity Reaction Status Date / Time No Known Drug Allergies Allergy Verified 06/28/21 13:56 Review of Systems Constitutional Constitutional: Denies weakness Comments: Denies headache Eyes Eyes: Reports as per HPI ENT Ears, Nose, Mouth, and Throat: Denies vertigo, Denies dizziness and Denies disequilibrium Comments: No sore throat Cardiovascular Comments: No chest pain, no palpitations Respiratory Comments: No shortness of breath Gastrointestinal Comments: No abdominal pain, no fevers. Genitourinary Comments: No urinary symptoms Musculoskeletal Musculoskeletal: Reports system reviewed and no additional complaints, except as documented and Denies numbness Integumentary/Breasts Skin/Breast: Reports system reviewed and no additional complaints, except as documented Neurologic Neurologic: Denies confusion, Denies vertigo, Denies dizziness, Denies numbness, Denies disequilibrium and Denies weakness Psychiatric Psychiatric: Denies confusion Hematologic/Lymphatic On Anticoagulants: Yes (Warfarin) Allergic/Immunologic Allergic/Immunologic: Reports system reviewed and no additional complaints, except as documented Patient History Medical History Acute dehydration Anticoagulated on warfarin Aortic stenosis, moderate Atrial fibrillation Atrial fibrillation with rapid ventricular response Atypical chest pain Balance problem 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) Cervical somatic dysfunction Chest pressure Chronic atrial fibrillation (01/02/18) Chronic bilateral low back pain without sciatica Cranial somatic dysfunction Diplopia Erectile dysfunction Essential hypertension (02/16/16) Fatigue Foot stiffness History of elevated PSA Incomplete emptying of bladder (02/16/16) Left arm weakness Low HDL (under 40) Medicare annual wellness visit, subsequent Nocturia Nocturia Orthostatic lightheadedness Pelvic somatic dysfunction Physician orders for life-sustaining treatment (POLST) form indicates patient wish for [id number] status Pleural effusion Segmental and somatic dysfunction of lumbar region Segmental and somatic dysfunction of rib cage Segmental and somatic dysfunction of sacral region Segmental and somatic dysfunction of thoracic region Somatic dysfunction of both lower extremities Stiff neck Vasovagal near syncope Vitamin D deficiency Surgical History Hx of cholecystectomy Status post cholecystectomy Family History Mother CVA (cerebral vascular accident) Father Diabetes mellitus Brother Renal failure Social History marital status: number of children: 1 household members: none occupational status: previously employed Previous occupational history: [employer] Smoking Status: Former smoker alcohol intake: former caffeine: Yes Smoking Status: Former smoker alcohol intake frequency: holidays/special occasions only Substance Use Type: does not use Exam Initial Vital Signs Initial Vital Signs: Vital Signs Temperature 97.6 F 06/28/21 13:45 Pulse Rate 87 06/28/21 13:45 Respiratory Rate 17 06/28/21 13:45 Blood Pressure 132/75 06/28/21 13:45 Pulse Oximetry 97 06/28/21 13:45 Const General: cooperative, healthy appearing and comfortable HENMT Head: normal to inspection and normocephalic Eyes General: appearance normal, both eyes and all related structures Periorbital: periorbital findings normal Conjunctivae: conjunctivae normal Pupils: PERRL EOM: EOM intact bilaterally Resp Effort & Inspection: normal respiratory effort Auscultation: clear to auscultation bilaterally Cardio Rate: regular rate Rhythm: abnormal rhythm GI Inspection: normal to inspection and abdominal wall ecchymosis Skin General: no rashes or lesions noted Neuro General: patient alert, patient awake, patient oriented x3 and moves all extremities Cranial Nerves: CN's II-XI intact bilaterally Cognition: normal cognition Speech: speech normal Gait: normal gait Motor: muscle tone normal throughout Sensory Exam: no sensory deficits noted Extrem General: normal to inspection and capillary refill normal Psych Appearance: grossly normal and well kempt Scores GCS [place] coma scale eye opening: Spontaneous [place] coma scale verbal response: Orientated [place] coma scale motor response: Obey commands Rubin coma scale total score: 15 NIH Stroke Scale Level of Conciousness: Alert, keenly responsive Ask month/age: Answers both questions correctly. Open/close eyes, close hand: Performs both tasks correctly Best gaze horizontal: Normal Visual tang: No visual loss Facial palsy: Normal symetrical movement Left arm drift: No drift for full 10 sec Right arm drift: No drift for full 10 sec Left leg drift: No drift for full 5 sec Right leg drift: No drift for full 5 sec Limb ataxia: Absent Sensory on face/arms/legs: Normal, no sensory loss Best language: No aphasia, normal Dysarthria: Normal Extinction or inattention: No abnormality Total NIH Stroke scale score: 0 Course Orders Ordered: ED Orders 06/28/21 13:48 CT Stroke Stat XR chest 1V Stat EKG-12 Lead Stat 06/28/21 14:17 Complete Blood Count AUTO DIFF Stat Comprehensive Metabolic Panel Stat Troponin & CK Cardiac Panel Stat Vital Signs Vital signs: Vital Signs - 8 hr 06/28/21 13:45 06/28/21 14:10 06/28/21 14:30 Temperature 97.6 F Pulse Rate 87 87 83 Respiratory Rate 17 Blood Pressure 132/75 133/91 H Pulse Oximetry 97 96 96 06/28/21 15:00 06/28/21 15:51 Temperature Pulse Rate 89 81 Respiratory Rate 16 Blood Pressure 145/89 H Pulse Oximetry 96 96 MDM - Neuro Symptoms/Deficit Medical Records Attestation: I reviewed the patient's medical records. Lab Data Attestation: I reviewed the patient's lab results. Result diagrams: 06/28/21 14:17 06/28/21 14:17 Labs: Lab Results 06/28/21 06/28/21 Range/Units 14:17 14:17 WBC 6.1 (4.5-11.0) X10^3/uL RBC 4.43 L (4.5-5.9) X10^6/uL Hgb 13.1 L (13.5-17.5) g/dL Hct 39.3 L (41-53) % MCV 88.7 (80-100) fL MCH 29.5 (26-34) PG MCHC 33.3 (30-36) % RDW 14.5 (11.6-14.8) % Plt Count 272 (150-400) X10^3/uL Neut % (Auto) 69.0 (50-75) % Lymph % (Auto) 15.9 L (25-40) % Story % (Auto) 10.9 (3-14) % Eos % (Auto) 3.4 (2-4) % Baso % (Auto) 0.8 (0-2) % Neut # (Auto) 4200 (3614-2856) /uL Lymph # (Auto) 1000 L (1449-3669) /uL Story # (Auto) 700 (0-900) /uL Eos # (Auto) 200 (0-450) /uL Baso # (Auto) 0 (0-100) /uL Sodium 135 L (137-145) mmol/L Potassium 4.2 (3.4-5.1) mmol/L Chloride 108 H (98-107) mmol/L Carbon Dioxide 23 (22-32) mmol/L BUN 20 (9-20) mg/dL Creatinine 1.06 (0.66-1.25) mg/dL Estimated GFR > 60.0 (>60) mL/min BUN/Creatinine Ratio 18.9 (6-22) Glucose 93 (80-110) mg/dL Calcium 8.5 (8.4-10.2) mg/dL Total Bilirubin 1.5 H (0.2-1.3) mg/dL AST 27 (17-59) IU/L ALT 19 (<50) IU/L Alkaline Phosphatase 75 (38-126) U/L Total Creatine Kinase 59 (55-170) U/L CK-MB (CK-2) TNP CK-MB (CK-2) Rel Index TNP Troponin I < 0.012 (0.01-0.034) ng/mL Total Protein 6.3 (6.3-8.2) g/dL Albumin 3.4 L (3.5-5.0) g/dL Globulin 2.9 (1.7-4.1) g/dL Albumin/Globulin Ratio 1.2 (1.0-2.8) Imaging Data CT scan - head: Radiologist's Impression: [address] [id number] Scan ReportSigned Patient: Nestor Mercedes CMR#: [id number]: 8Acct:[id number]/Sex: 80 / MDate of Service: 06/28/21Loc: EDAccession Number: [id number] Procedure: CT Stroke Ordering Provider: Mohan Riggins D.O. PROCEDURE: CT STROKE INDICATIONS: double vision TECHNIQUE: Noncontrast 4.5 mm thick angled axial sections acquired from the foramen magnum to the vertex, with coronal reformats. For radiation dose reduction, the following was used: automated exposure control, adjustment of mA and/or kV according to patient size. COMPARISON: [facility], CT, CT STROKE, 10/05/2020, 13:10. [facility], CT, CT STROKE, 07/18/2020, 16:47. FINDINGS: Image quality: Excellent. CSF spaces: Basal cisterns are patent. No extra-axial fluid collections. The ventricles are symmetric in size and shape. Brain: No intracranial bleeds or masses. There is cerebral volume loss for age, with resultant ventricular and sulcal prominence. There are periventricular and deep white matter chronic small vessel ischemic changes. There is intracranial internal carotid artery atherosclerosis. Skull and face: Calvarium and visualized facial bones appear intact, without suspicious lesions. Sinuses: Visualized sinuses and mastoids are clear. IMPRESSION: Age related microvascular atherosclerotic change but no evidence of acute stroke, hemorrhage or mass. No contraindication to tPA is found. Findings immediately called to the emergency room physician caring for the patient at 2:00 p.m. This study fulfills neurological imaging criteria for inclusion or exclusion of acute stroke therapies based on available published neurological guidelines. Dictated by: Ishan Osorio M.D. on 06/28/2021 at 14:04 Approved by: Ishan Osorio M.D. on 06/28/2021 at 14:07 Chest x-ray: Radiologist's Impression: [address] [id number] ReportSigned Patient: Nestor Mercedes CMR#: [id number]: 8Acct:[id number]/Sex: 80 / MDate of Service: 06/28/21Loc: EDAccession Number: [id number] Procedure: XR chest 1V Ordering Provider: Mohan Riggins D.O. PROCEDURE: XR CHEST 1V INDICATIONS: Possible stroke TECHNIQUE: One view of the chest was acquired. COMPARISON: [facility], CR, XR CHEST 1V, 06/10/2021, 5:33. [facility], CR, XR CHEST 1V, 04/02/2021, 5:47. FINDINGS: Surgical changes and devices: None. Lungs and pleura: Lungs are abnormal, with relatively large lung volumes suspicious for representing COPD, and there is a mild degree of pulmonary edema. No pleural effusions or pneumothorax. Mediastinum: Mediastinal contours appear normal. Heart size is normal. Bones and chest wall: No suspicious bony lesions. Overlying soft tissues appear unremarkable. IMPRESSION: Pulmonary hyperexpansion consistent with COPD. Mild pulmonary edema versus interstitial prominence related to longstanding smoking history. No aspiration seen. Dictated by: Ishan Osorio M.D. on 06/28/2021 at 14:08 Approved by: Ishan Osorio M.D. on 06/28/2021 at 14:09 ECG Data Attestation: I personally reviewed and interpreted this ECG as follows: Interpretation: Atrial fibrillation Ventricular rate 80 to Normal axis Normal QRS Normal QTC No ST T wave changes MDM Narrative Medical decision making narrative: Patient is asymptomatic now. Had a score 0. Head CT is unremarkable. Not a candidate for tPA given his anti coagulation use and also the fact that his symptoms have completely resolved. Unsure whether not his symptoms today are related to a TIA versus potentially a cranial nerve palsy causing the diplopia. Patient is on a statin. He has had a workup in the past for TIAs. Given the fact that the hospital is full, the fact that he is on full medical management, the fact that he has had TIA workup in the past will discharge the patient home. I did discuss the case with Dr. Menjivar who is on- call for the patient's primary doctor who will have the clinic reach out to the patient for follow-up. Patient was given strict return precautions and follow- up instructions. He expressed understanding and agreement. He will continue all his medications as directed. Discharge Plan Departure Patient Disposition: Home Clinical Impression: Double vision Instructions: DI for Double Vision Activity Restrictions/Additional Instructions: Recommend that you continue to take all of your medications as directed. Keep your appointment with your primary doctor next Monday. Return to the emergency department for any new or worsening symptoms like we discussed. Prescriptions: No Action multivitamin [Multiple Vitamins] 1 EACH tablet 1 tab PO DAILY Qty: 0 RF: 0 cholecalciferol (vitamin D3) [Vitamin D3] 2,000 UNIT tablet 2,000 unit PO DAILY Qty: 0 RF: 0 warfarin 5 mg tablet See Rx Instructions .ROUTE .COMPLEX Qty: 90 RF: 3 clobetasol 0.05 % ointment 1 applic topical BID PRN (Reason: as directed) Qty: 30 RF: 3 finasteride 5 mg tablet 5 mg PO Q OTHER DAY Qty: 90 RF: 3 tamsulosin 0.4 mg capsule 0.8 mg PO BEDTIME Qty: 180 RF: 3 metoprolol succinate 100 MG tablet extended release 24 hr 100 mg PO QAM RF: 0 Iron High Potency 27 mg tablet 27 mg PO DAILY RF: 0 Ocuvite 30unit 5mg 150mg 1 cap PO DAILY RF: 0 metoprolol succinate [Toprol XL] 25 mg tablet extended release 24 hr 25 mg PO BEDTIME RF: 0 atorvastatin 40 mg tablet 40 mg PO DAILY RF: 0 Referrals: Oleksandr Pinto DO [Primary Care Provider] -
[2021-06-28 14:27] LABS: Add Manual Diff / Slide Review NO; Basophils Absolute Auto 0 /uL (0-100); Basophils Percent Auto 0.8 % (0-2); Eosinophils Absolute Auto 200 /uL (0-450); Eosinophils Percent Auto 3.4 % (2-4); Hematocrit 39.3 % (41-53); Hemoglobin 13.1 g/dL (13.5-17.5); Lymphocytes Absolute Auto 1000 /uL (1100-4500); Lymphocytes Percent Auto 15.9 % (25-40); Mean Corpuscular HGB Conc 33.3 % (30-36); Mean Corpuscular Hemoglobin 29.5 PG (26-34); Mean Corpuscular Volume 88.7 fL (80-100); Monocytes Absolute Auto 700 /uL (0-900); Monocytes Percent Auto 10.9 % (3-14); Neutrophils Absolute Auto 4200 /uL (1500-7000); Platelet Count 272 X10^3/uL (150-400); Red Blood Cell Count 4.43 X10^6/uL (4.5-5.9); Red Cell Distribution Width 14.5 % (11.6-14.8); White Blood Cell Count 6.1 X10^3/uL (4.5-11.0)
[2021-06-28 14:30] VITALS: PULSE 83; O2SAT 96
[2021-06-28 14:47] LABS: Alanine Aminotransferase 19 IU/L (<50); Albumin 3.4 g/dL (3.5-5.0); Albumin Globulin Ratio 1.2 (1.0-2.8); Alkaline Phosphatase 75 U/L (38-126); Aspartate Aminotransferase 27 IU/L (17-59); BUN Creatinine Ratio 18.9 (6-22); Bilirubin Total 1.5 mg/dL (0.2-1.3); Blood Urea Nitrogen 20 mg/dL (9-20); Calcium 8.5 mg/dL (8.4-10.2); Carbon Dioxide 23 mmol/L (22-32); Chloride 108 mmol/L (98-107); Creatine Kinase 59 U/L (55-170); Estimated Glomerular Filt Rate > 60.0 mL/min (>60); Globulin 2.9 g/dL (1.7-4.1); Glucose 93 mg/dL (80-110); HEMOLYSIS < 15 (0-50); Potassium 4.2 mmol/L (3.4-5.1); Sodium 135 mmol/L (137-145); Total Protein 6.3 g/dL (6.3-8.2)
[2021-06-28 14:57] LABS: Troponin I < 0.012 ng/mL (0.01-0.034)
[2021-06-28 15:00] VITALS: PULSE 89; O2SAT 96
[2021-06-28 15:51] VITALS: BP 145/89; PULSE 81; RESP 16; O2SAT 96
== END 2021-06-28 15:53 | disposition home or self-care (01) ==
PROVIDERS: Emergency Provider Emergency Medicine; Family Provider Family Medicine; PCP Family Medicine
DX: H53.2 Diplopia (principal); Z79.01 Long term (current) use of anticoagulants
CPT/HCPCS: 36415; 70450; 71045; 80053; 82550; 84484; 85025; 93005; 93010; 99284; 99285

== ENCOUNTER → 2021-08-31 11:10 | Outpatient (CLI) | payer MEDICARE, OTHER, SELFPAY ==
[2021-08-31 13:32] LABS: Prostate Specific Antigen 1.49 ng/mL (0.10-4.00)
== END ==
PROVIDERS: Family Provider Family Medicine; PCP Family Medicine; Referring Provider Specialist; Visit Provider Specialist
DX: Z87.898 Personal history of other specified conditions (principal); N40.1 Benign prostatic hyperplasia with lower urinary tract symptoms
CPT/HCPCS: 36415; 84153

== ENCOUNTER → 2021-10-14 08:48 | Outpatient (CLI) | payer MEDICARE, OTHER, SELFPAY ==
--- NOTE | 2021-10-14 08:50 | DI.ECHO.S_ITS ---
[facility]---------+ [facility] +---------+ : : [address] : : : : [id number] : : : : Phone: [phone]---------+ Echocardiogram Report + + :Name: DOMINIC AGUILAR Study Date: 10/14/2021 Height: 73 in : :[facility] ReadingLocation: Weight: 180 lb : : Gender: Male BSA: 2.1 m2 : :: 1940 Age: 81 yrs BP: 143/86 mmHg: :Reason For Study: AORTIC STENOSIS : :Ordering Physician: YONIS, : :REJI Performed By: Adelina Guajardo : :Referring: REJI GRANT : + + Interpretation Summary 1) Normal left ventricular thickness, size, wall motion, and systolic function (EF 55-60%). 2) Mildly enlarged right ventricular size with normal function. 3) The left atrium is severely dilated. The right atrium is moderately dilated. 4) There is calcific moderate to severe aortic stenosis (valve area 1.0cm2, mean gradient 11mmHg, severity ratio 0.29). 5) There is mild to moderate tricuspid regurgitation. 6) The right ventricular systolic pressure is estimated to be at least 28 mmHg based on an estimated right atrial pressure of 3 mm Hg. 7) The ascending aorta is mildly enlarged at 4.1cm. 8) Compared to the Echo done 10/14/2020, aortic stenosis has progressed slightly on this study. Procedure: A two-dimensional transthoracic echocardiogram with color flow and Doppler was performed. The study quality was technically adequate. Comparison is made with the echocardiogram of 10/14/2020. The patient was in atrial fibrillation with heart rates between 66-83 bpm during the exam. Left Ventricle: The left ventricle is normal in size and wall thickness. The ejection fraction is estimated to be 55-60%. Left ventricular systolic function appears normal without focal wall motion abnormalities. Diastolic function could not be accurately assessed due to atrial fibrillation. Right Ventricle: The right ventricle is mildly dilated. The right ventricular systolic function is normal. Atria: The left atrium is severely dilated. The right atrium is moderately dilated. There is no Doppler evidence for an interatrial shunt. Mitral Valve: The mitral valve is normal in structure and function. There is mild mitral annular calcification. There is mild mitral regurgitation. Aortic Valve: The aortic valve is heavily calcified. There is moderately reduced leaflet mobility. The aortic valve mean gradient is 11 mmHg. The calculated aortic valve area is 1.0 cm2. There is moderate to severe aortic stenosis. No aortic regurgitation is present. Tricuspid Valve: The tricuspid valve is normal in structure and function. There is mild to moderate tricuspid regurgitation. The right ventricular systolic pressure is estimated to be at least 28 mmHg based on an estimated right atrial pressure of 3 mm Hg. Pulmonic Valve: The pulmonic valve is not well visualized. There is no pulmonic valvular regurgitation. Great Vessels: The aortic root is normal size. The ascending aorta is moderately enlarged. The IVC is of normal diameter and collapses greater than 50% with a sniff. This suggests a low right atrial pressure of 3 mm Hg. Pericardium/ Pleura There is no pericardial effusion. There is no pleural effusion. MMode/2D Measurements & Calculations LVIDd: 4.2 cm LVOT diam: 2.1 cm LVIDs: 2.7 cm Ao root diam: 3.5 cm FS: 35.1 % asc Aorta Diam: 4.1 cm IVSd: 1.0 cm LVPWd: 0.92 cm LV whtiaker. diameter/BSA (cm/m^2): 2.0 LV sys. diameter/BSA (cm/m^2): 1.3 LA A2 area: 29.1 cm2 RA long axis: 6.5 cm LA A4 area: 29.4 cm2 RA area: 22.9 cm2 LA length (vol): 7.1 cm RA vol: 69.0 ml LA vol: 102.9 ml RA : 33.5 ml/m2 LA vol index: 50.0 ml/m2 IVC diam: 1.5 cm RVD1 (basal): 4.5 cm TAPSE: 2.1 cm Doppler Measurements & Calculations Ao V2 max: 218.1 cm/sec LVOT Max Lazaro: 67.3 cm/sec Ao V2 mean: 148.5 cm/sec LV V1 max P.8 mmHg Ao max P.0 mmHg LV V1 VTI: 13.2 cm Ao mean P.9 mmHg CIERRA(I,D): 0.95 cm2 Ao V2 VTI: 45.8 cm CIERRA(V,D): 1.0 cm2 sev ratio: 0.29 CIERRA indexed to BSA (cm^2/m^2): 0.46 MV E max lzaaro: 87.5 cm/sec TR max lazaro: 250.8 cm/sec MV A max lazaro: 2.3 cm/sec TR max P.2 mmHg MV E/A: 38.4 PA V2 max: 81.3 cm/sec Med Peak E' Lazaro: 12.7 cm/sec PA V2 mean: 60.4 cm/sec E/E' med: 6.9 PA mean P.6 mmHg Lat Peak E' Lazaro: 11.5 cm/sec PA pr(Accel): 36.2 mmHg E/E' lat: 7.6 E/e' average: 7.3 MV dec time: 0.20 sec SV(LVOT): 43.7 ml Reading Physician:11:33 AM
== END ==
PROVIDERS: Family Provider Family Medicine; PCP Family Medicine; Referring Provider Internal Medicine Cardiovascular Disease; Visit Provider Internal Medicine Cardiovascular Disease
DX: I08.3 Combined rheumatic disorders of mitral, aortic and tricuspid valves (principal); I77.89 Other specified disorders of arteries and arterioles
CPT/HCPCS: 93306

== ENCOUNTER 2021-10-24 10:10 | Emergency (ER) | payer MEDICARE, OTHER, SELFPAY ==
[2021-10-24] VITALS (13 sets, daily range): BP systolic 135–173; BP diastolic 67–96; PULSE 78–86; RESP 13–20; TEMP 36.6; O2SAT 78–99; BMI 33.3
--- NOTE | 2021-10-24 10:31 | ED_ITS ---
HPI - Chest Pain General Chief Complaint: Chest Pain Stated Complaint: Chest pains, dizzy Time Seen by Provider: 10/24/21 10:24 Source: patient Mode of arrival: Ambulatory Limitations: no limitations Limitations: no limitations History of Present Illness HPI narrative: The patient complains of sternal chest pain. He developed pain as he awoke and got out of bed this morning. The pain is minimal at this time, much more significant when he 1st woke up. He is atrial fib, he is anticoagulated. He takes metoprolol. He has no history of CA. the pain does not radiate. He has no dyspnea. He denies orthopnea, he has no peripheral edema. He denies recent illness. He denies headache, sore throat, or fever. Related Data Home Medications Medication Instructions Recorded Confirmed multivitamin (Multiple Vitamins) 1 tab PO DAILY #0 03/06/13 07/05/21 cholecalciferol (vitamin D3) 50 2,000 unit PO DAILY #0 tab 08/03/16 07/05/21 mcg (2,000 unit) tablet (Vitamin D3) Iron High Potency 27 mg PO DAILY 04/09/19 07/05/21 Ocuvite 30unit 5mg 150mg 1 cap PO DAILY 04/09/19 07/05/21 metoprolol succinate 100 mg 100 mg PO QAM 04/09/19 07/05/21 tablet,extended release 24 hr metoprolol succinate 25 mg 25 mg PO BEDTIME 07/18/20 07/05/21 tablet,extended release 24 hr (Toprol XL) atorvastatin 40 mg tablet 40 mg PO DAILY 11/19/20 07/05/21 warfarin 5 mg tablet See Rx Instructions .ROUTE 08/23/21 10/04/21 .COMPLEX tab Previous Rx's Medication Instructions Recorded clobetasol 0.05 % topical ointment 1 applic TOPICAL BID PRN #30 gram 12/10/19 finasteride 5 mg tablet 5 mg PO Q OTHER DAY #90 tab 10/14/20 tamsulosin 0.4 mg capsule 0.8 mg PO BEDTIME #180 cap 10/14/20 furosemide 20 mg tablet (Lasix) 20 mg PO DAILY #30 tab 10/24/21 Allergies Allergy/AdvReac Type Severity Reaction Status Date / Time No Known Drug Allergies Allergy Verified 07/05/21 08:21 Review of Systems Constitutional Constitutional: Denies body ache(s), Denies chills, Denies fever(s) and Denies headache(s) Eyes Comments: No eye complaints ENT Ears, Nose, Mouth, and Throat: Denies dizziness, Denies headache(s), Denies sinus pressure and Denies sore throat Cardiovascular Cardiovascular: Reports as per HPI, Reports chest pain, Denies syncope, Denies rapid heart rate, Denies pedal edema and Denies dyspnea Respiratory Respiratory: Denies cough and Denies dyspnea Gastrointestinal Gastrointestinal: Denies abdominal pain, Denies nausea and Denies vomiting Genitourinary Genitourinary: Denies dysuria Musculoskeletal Musculoskeletal: Denies back pain Comments: No lower extremity edema Integumentary/Breasts Skin/Breast: Denies lesions and Denies rash Neurologic Neurologic: Denies dizziness, Denies syncope and Denies headache(s) Psychiatric Comments: No issues Hematologic/Lymphatic On Anticoagulants: Yes Patient History Medical History Acute dehydration Anticoagulated on warfarin Aortic stenosis, moderate Atrial fibrillation Atrial fibrillation with rapid ventricular response Atypical chest pain Balance problem 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) Cervical somatic dysfunction Chest pressure Chronic atrial fibrillation (01/02/18) Chronic bilateral low back pain without sciatica Cranial somatic dysfunction Diplopia Erectile dysfunction Essential hypertension (02/16/16) Fatigue Foot stiffness History of elevated PSA Incomplete emptying of bladder (02/16/16) Left arm weakness Low HDL (under 40) Medicare annual wellness visit, subsequent Nocturia Nocturia Orthostatic lightheadedness Pelvic somatic dysfunction Physician orders for life-sustaining treatment (POLST) form indicates patient wish for [id number] status Pleural effusion Segmental and somatic dysfunction of lumbar region Segmental and somatic dysfunction of rib cage Segmental and somatic dysfunction of sacral region Segmental and somatic dysfunction of thoracic region Somatic dysfunction of both lower extremities Stiff neck Vasovagal near syncope Vitamin D deficiency Surgical History Hx of cholecystectomy Status post cholecystectomy Family History Mother CVA (cerebral vascular accident) Father Diabetes mellitus Brother Renal failure Social History marital status: number of children: 1 household members: none occupational status: previously employed Previous occupational history: [employer] Smoking Status: Former smoker alcohol intake: former caffeine: Yes Smoking Status: Former smoker alcohol intake frequency: holidays/special occasions only Substance Use Type: does not use Exam Initial Vital Signs Initial Vital Signs: Vital Signs Temperature 97.8 F 10/24/21 10:16 Pulse Rate 85 10/24/21 10:16 Pulse Oximetry 98 10/24/21 10:16 Const General: cooperative, healthy appearing, comfortable and No in distress [facility] Head: normocephalic and atraumatic Eyes General: appearance normal, both eyes and all related structures Neck Neck: No lymphadenopathy and No JVD Resp Auscultation: clear to auscultation bilaterally Cardio Rhythm: abnormal rhythm irregularly irregular GI Inspection: normal to inspection Palpation: soft and No tender Back/Spine/Pelvis Back: normal to inspection Skin General: no rashes or lesions noted Neuro General: patient alert, patient awake and no focal motor deficits Extrem General: normal to inspection, full ROM, no pedal edema and no calf tenderness Psych Appearance: grossly normal Course Course Course Narrative: The patient is normotensive. EKG shows AFib, no acute ST changes. Troponin is negative. Chest x-ray suggests CHF, he has an elevated BNP. He was given Lasix here in the ER, he is discharged on his regular medications with Lasix added. He has follow-up with his PCM next week, he sees his patternmaker helper before the end of the month. Orders Ordered: ED Orders 10/24/21 10:33 XR chest 1V Stat EKG-12 Lead Stat 10/24/21 10:47 Complete Blood Count AUTO DIFF Stat Comprehensive Metabolic Panel Stat Lipase Stat NT-proBNP (BNP-Adult 18+) Stat Troponin & CK Cardiac Panel Stat 10/24/21 11:02 COVID19 -Nasal swab/Pre-Proc Stat Discontinued Medications Acetaminophen (Acetaminophen 325 Mg Tablet) 650 mg PO NOW ONE Stop: 10/24/21 10:34 Last Admin: 10/24/21 11:40 Dose: Not Given Documented by: KBROWNE Furosemide (Furosemide 40 Mg/4 Ml Vial) 40 mg IV NOW ONE Stop: 10/24/21 12:44 Last Admin: 10/24/21 12:57 Dose: 40 mg Documented by: BRANDEE Vital Signs Vital signs: Vital Signs - 8 hr 10/24/21 10:16 10/24/21 10:17 10/24/21 10:26 Temperature 97.8 F Pulse Rate 85 79 84 Respiratory Rate 18 Blood Pressure 173/81 H 145/67 H Pulse Oximetry 98 98 98 10/24/21 10:30 10/24/21 11:00 10/24/21 11:30 Temperature Pulse Rate 86 78 85 Respiratory Rate 19 13 18 Blood Pressure 145/67 H 137/78 Pulse Oximetry 99 97 98 10/24/21 11:33 10/24/21 12:00 10/24/21 12:01 Temperature Pulse Rate 83 79 83 Respiratory Rate 20 14 15 Blood Pressure 155/96 H 148/72 H Pulse Oximetry 98 97 97 10/24/21 12:30 10/24/21 13:07 Temperature Pulse Rate 80 Respiratory Rate 13 Blood Pressure 166/85 H Pulse Oximetry 97 78 L MDM - Chest Pain Lab Data Result diagrams: 10/24/21 10:47 10/24/21 10:47 Labs: Lab Results 10/24/21 10/24/21 10/24/21 Range/Units 10:47 10:47 10:47 WBC 5.8 (4.5-11.0) X10^3/uL RBC 4.62 (4.5-5.9) X10^6/uL Hgb 13.7 (13.5-17.5) g/dL Hct 41.7 (41-53) % MCV 90.1 (80-100) fL MCH 29.7 (26-34) PG MCHC 32.9 (30-36) % RDW 14.5 (11.6-14.8) % Plt Count 260 (150-400) X10^3/uL Neut % (Auto) 71.4 (50-75) % Lymph % (Auto) 16.4 L (25-40) % [place] % (Auto) 8.8 (3-14) % Eos % (Auto) 3.0 (2-4) % Baso % (Auto) 0.4 (0-2) % Neut # (Auto) 4100 (6189-7816) /uL Lymph # (Auto) 1000 L (9363-9944) /uL [place] # (Auto) 500 (0-900) /uL Eos # (Auto) 200 (0-450) /uL Baso # (Auto) 0 (0-100) /uL Sodium 139 (137-145) mmol/L Potassium 3.9 (3.4-5.1) mmol/L Chloride 108 H (98-107) mmol/L Carbon Dioxide 27 (22-32) mmol/L BUN 17 (9-20) mg/dL Creatinine 1.09 (0.66-1.25) mg/dL Estimated GFR > 60.0 (>60) mL/min BUN/Creatinine Ratio 15.6 (6-22) Glucose 114 H (80-110) mg/dL Calcium 8.7 (8.4-10.2) mg/dL Total Bilirubin 1.2 (0.2-1.3) mg/dL AST 24 (17-59) IU/L ALT 19 (<50) IU/L Alkaline Phosphatase 72 (38-126) U/L Total Creatine Kinase 42 L (55-170) U/L CK-MB (CK-2) TNP CK-MB (CK-2) Rel Index TNP Troponin I < 0.012 (0.01-0.034) ng/mL NT-Pro-B Natriuret Pep 2280 H (<450) pg/mL Total Protein 6.6 (6.3-8.2) g/dL Albumin 3.7 (3.5-5.0) g/dL Globulin 2.9 (1.7-4.1) g/dL Albumin/Globulin Ratio 1.3 (1.0-2.8) Lipase 321 H (23-300) U/L SARS-CoV-2 (PCR) (Negative) 10/24/21 Range/Units 11:02 WBC (4.5-11.0) X10^3/uL RBC (4.5-5.9) X10^6/uL Hgb (13.5-17.5) g/dL Hct (41-53) % MCV (80-100) fL MCH (26-34) PG MCHC (30-36) % RDW (11.6-14.8) % Plt Count (150-400) X10^3/uL Neut % (Auto) (50-75) % Lymph % (Auto) (25-40) % [place] % (Auto) (3-14) % Eos % (Auto) (2-4) % Baso % (Auto) (0-2) % Neut # (Auto) (8954-4922) /uL Lymph # (Auto) (3979-7708) /uL [place] # (Auto) (0-900) /uL Eos # (Auto) (0-450) /uL Baso # (Auto) (0-100) /uL Sodium (137-145) mmol/L Potassium (3.4-5.1) mmol/L Chloride (98-107) mmol/L Carbon Dioxide (22-32) mmol/L BUN (9-20) mg/dL Creatinine (0.66-1.25) mg/dL Estimated GFR (>60) mL/min BUN/Creatinine Ratio (6-22) Glucose (80-110) mg/dL Calcium (8.4-10.2) mg/dL Total Bilirubin (0.2-1.3) mg/dL AST (17-59) IU/L ALT (<50) IU/L Alkaline Phosphatase (38-126) U/L Total Creatine Kinase (55-170) U/L CK-MB (CK-2) CK-MB (CK-2) Rel Index Troponin I (0.01-0.034) ng/mL NT-Pro-B Natriuret Pep (<450) pg/mL Total Protein (6.3-8.2) g/dL Albumin (3.5-5.0) g/dL Globulin (1.7-4.1) g/dL Albumin/Globulin Ratio (1.0-2.8) Lipase (23-300) U/L SARS-CoV-2 (PCR) Negative (Negative) Imaging Data Chest x-ray: Radiologist's Impression: [address] [address] XRay Report Signed Patient: Nestor Mercedes MR#: [id number] : 1940 Acct:[id number] Age/Sex: 81 / M Date of Service: 10/24/21 Loc: ED Accession Number: [id number] ?? Procedure: XR chest 1V Ordering Provider: Ebenezer Valiente MD PROCEDURE:? XR CHEST 1V ? INDICATIONS:? Chest pain ? TECHNIQUE:? One view of the chest was acquired.? ? COMPARISON:? [facility], CR, XR CHEST 1V, 06/28/2021, 13:51. ? FINDINGS:? ? Surgical changes and devices:? None.? ? Lungs and pleura:? Mild basilar predominant reticulonodular pulmonary opacity.? No pleural effusions or pneumothorax.? ? Mediastinum:? Mediastinal contours appear normal.? Heart size is normal.? ? Bones and chest wall:? No suspicious bony lesions.? Overlying soft tissues appear unremarkable.? ? IMPRESSION:? Mild edema versus atypical pneumonia. ? ? Dictated by: Jason Moore M.D. on 10/24/2021 at 9:55 ? ? Approved by: Jason Moore M.D. on 10/24/2021 at 9:55?? ECG Data Attestation: I personally reviewed and interpreted this ECG as follows: (AFib rate 80 beats per minute. Narrow complex. No acute ST T wave changes.) Discharge Plan Departure Patient Disposition: Home Clinical Impression: Atrial fibrillation, Congestive heart failure Instructions: Heart Failure Activity Restrictions/Additional Instructions: Continue your current medications. Lasix 20 mg daily. The prescription has been forwarded to [facility] in [place]. Review your medications with your PCM next week, follow-up with your patternmaker helper as scheduled. Return here if you experience symptoms of chest pain, dizziness, or difficulty breathing. Prescriptions: New furosemide [Lasix] 20 mg tablet 20 mg PO DAILY Qty: 30 0RF No Action multivitamin [Multiple Vitamins] 1 EACH tablet 1 tab PO DAILY Qty: 0 0RF cholecalciferol (vitamin D3) [Vitamin D3] 2,000 UNIT tablet 2,000 unit PO DAILY Qty: 0 0RF clobetasol 0.05 % ointment 1 applic topical BID PRN (Reason: as directed) Qty: 30 3RF finasteride 5 mg tablet 5 mg PO Q OTHER DAY Qty: 90 3RF tamsulosin 0.4 mg capsule 0.8 mg PO BEDTIME Qty: 180 3RF Rx Instructions: 30 minutes following the same meal each day warfarin 5 mg tablet See Rx Instructions .ROUTE .COMPLEX 0RF Dose Instruction: Take 1/2 tablet daily except on and Sat take 1 or as directed by doctor ; Rx Instructions: Take 5mg Monday and Monday and 2.5mg all other days, or as directed. metoprolol succinate 100 MG tablet extended release 24 hr 100 mg PO QAM 0RF Iron High Potency 27 mg tablet 27 mg PO DAILY 0RF Label Comments: Iron High Potency 240mg (27mg iron) Ocuvite 30unit 5mg 150mg 1 cap PO DAILY 0RF metoprolol succinate [Toprol XL] 25 mg tablet extended release 24 hr 25 mg PO BEDTIME 0RF atorvastatin 40 mg tablet 40 mg PO DAILY 0RF Referrals: Oleksandr Pinto DO [Primary Care Provider] -
--- NOTE | 2021-10-24 10:33 | DI.RAD.S_ITS ---
PROCEDURE: XR CHEST 1V INDICATIONS: Chest pain TECHNIQUE: One view of the chest was acquired. COMPARISON: [facility], CR, XR CHEST 1V, 06/28/2021, 13:51. FINDINGS: Surgical changes and devices: None. Lungs and pleura: Mild basilar predominant reticulonodular pulmonary opacity. No pleural effusions or pneumothorax. Mediastinum: Mediastinal contours appear normal. Heart size is normal. Bones and chest wall: No suspicious bony lesions. Overlying soft tissues appear unremarkable. IMPRESSION: Mild edema versus atypical pneumonia. Dictated by: Jason Moore M.D. on 10/24/2021 at 9:55 Approved by: Jason Moore M.D. on 10/24/2021 at 9:55
[2021-10-24 10:58] LABS: Add Manual Diff / Slide Review NO; Basophils Absolute Auto 0 /uL (0-100); Basophils Percent Auto 0.4 % (0-2); Eosinophils Absolute Auto 200 /uL (0-450); Hematocrit 41.7 % (41-53); Hemoglobin 13.7 g/dL (13.5-17.5); Lymphocytes Absolute Auto 1000 /uL (1100-4500); Lymphocytes Percent Auto 16.4 % (25-40); Mean Corpuscular HGB Conc 32.9 % (30-36); Mean Corpuscular Hemoglobin 29.7 PG (26-34); Mean Corpuscular Volume 90.1 fL (80-100); Monocytes Absolute Auto 500 /uL (0-900); Monocytes Percent Auto 8.8 % (3-14); Neutrophils Absolute Auto 4100 /uL (1500-7000); Neutrophils Percent Auto 71.4 % (50-75); Platelet Count 260 X10^3/uL (150-400); Red Blood Cell Count 4.62 X10^6/uL (4.5-5.9); Red Cell Distribution Width 14.5 % (11.6-14.8); White Blood Cell Count 5.8 X10^3/uL (4.5-11.0)
[2021-10-24 11:13] LABS: Alanine Aminotransferase 19 IU/L (<50); Albumin 3.7 g/dL (3.5-5.0); Albumin Globulin Ratio 1.3 (1.0-2.8); Alkaline Phosphatase 72 U/L (38-126); Aspartate Aminotransferase 24 IU/L (17-59); BUN Creatinine Ratio 15.6 (6-22); Bilirubin Total 1.2 mg/dL (0.2-1.3); Blood Urea Nitrogen 17 mg/dL (9-20); Calcium 8.7 mg/dL (8.4-10.2); Carbon Dioxide 27 mmol/L (22-32); Chloride 108 mmol/L (98-107); Creatine Kinase 42 U/L (55-170); Estimated Glomerular Filt Rate > 60.0 mL/min (>60); Globulin 2.9 g/dL (1.7-4.1); Glucose 114 mg/dL (80-110); HEMOLYSIS < 15 (0-50); Lipase 321 U/L (23-300); Potassium 3.9 mmol/L (3.4-5.1); Sodium 139 mmol/L (137-145); Total Protein 6.6 g/dL (6.3-8.2)
[2021-10-24 11:24] LABS: Troponin I < 0.012 ng/mL (0.01-0.034)
[2021-10-24 11:35] LABS: COVID19 -Nasal RAPID Negative (Negative)
[2021-10-24 12:17] LABS: NT-proBNP (BNP-Adult 18+) 2280 pg/mL (<450)
[2021-10-24] MEDS: FUROSEMIDE 40 MG/4 ML VIAL IV (12:57)
[2021-10-24 13:45] LABS: INR 2.6 (0.9-1.3)
== END 2021-10-24 14:44 | disposition home or self-care (01) ==
PROVIDERS: Emergency Provider Emergency Medicine; Family Provider Family Medicine; PCP Family Medicine
DX: I48.91 Unspecified atrial fibrillation (principal); I50.9 Heart failure, unspecified; Z79.01 Long term (current) use of anticoagulants
CPT/HCPCS: 36415; 71045; 80053; 82550; 83690; 83880; 84484; 85025; 85610; 87635; 93005; 93010; 96374; 99284; C9803; J1940

== ENCOUNTER → 2021-11-01 11:34 | Outpatient (CLI) | payer MEDICARE, OTHER, SELFPAY ==
[2021-11-01 12:54] LABS: Hemoglobin A1C% w Est Avg Glu 5.6 % (4.0-6.0)
[2021-11-01 13:13] LABS: Cholesterol 138 mg/dL (140-199); HDL Cholesterol 43 mg/dL (40-60); LDL Cholesterol Calculated 66 mg/dL (<100); Triglycerides 145 mg/dL (35-150)
== END ==
PROVIDERS: Family Provider Family Medicine; PCP Family Medicine; Referring Provider Family Medicine; Visit Provider Family Medicine
DX: R73.09 Other abnormal glucose (principal); I10 Essential (primary) hypertension; I35.0 Nonrheumatic aortic (valve) stenosis; E78.6 Lipoprotein deficiency; E78.5 Hyperlipidemia, unspecified
CPT/HCPCS: 36415; 80061; 83036

== ENCOUNTER → 2021-11-19 08:12 | Outpatient (CLI) | payer MEDICARE, OTHER, SELFPAY ==
[2021-11-19 09:18] LABS: Add Manual Diff / Slide Review NO; Basophils Absolute Auto 0 /uL (0-100); Basophils Percent Auto 0.5 % (0-2); Eosinophils Absolute Auto 200 /uL (0-450); Eosinophils Percent Auto 2.8 % (2-4); Hematocrit 45.5 % (41-53); Hemoglobin 15.1 g/dL (13.5-17.5); Lymphocytes Absolute Auto 1300 /uL (1100-4500); Lymphocytes Percent Auto 22.2 % (25-40); Mean Corpuscular HGB Conc 33.2 % (30-36); Mean Corpuscular Hemoglobin 29.8 PG (26-34); Mean Corpuscular Volume 89.7 fL (80-100); Monocytes Absolute Auto 600 /uL (0-900); Monocytes Percent Auto 10.6 % (3-14); Neutrophils Absolute Auto 3700 /uL (1500-7000); Neutrophils Percent Auto 63.9 % (50-75); Platelet Count 270 X10^3/uL (150-400); Red Blood Cell Count 5.07 X10^6/uL (4.5-5.9); Red Cell Distribution Width 14.3 % (11.6-14.8); White Blood Cell Count 5.7 X10^3/uL (4.5-11.0)
[2021-11-19 09:36] LABS: BUN Creatinine Ratio 15.8 (6-22); Blood Urea Nitrogen 22 mg/dL (9-20); Carbon Dioxide 30 mmol/L (22-32); Chloride 105 mmol/L (98-107); Cholesterol 145 mg/dL (140-199); Estimated Glomerular Filt Rate 48.8 mL/min (>60); Glucose 101 mg/dL (80-110); HDL Cholesterol 40 mg/dL (40-60); HEMOLYSIS < 15 (0-50); LDL Cholesterol Calculated 78 mg/dL (<100); Potassium 4.3 mmol/L (3.4-5.1); Sodium 139 mmol/L (137-145); Triglycerides 137 mg/dL (35-150)
== END ==
PROVIDERS: Family Provider Family Medicine; PCP Family Medicine; Referring Provider Internal Medicine Cardiovascular Disease; Visit Provider Internal Medicine Cardiovascular Disease
DX: I10 Essential (primary) hypertension (principal); E78.5 Hyperlipidemia, unspecified
CPT/HCPCS: 36415; 80048; 80061; 85025

== ENCOUNTER 2022-06-25 19:28 | Emergency (ER) | payer MEDICARE, OTHER, SELFPAY ==
[2022-06-25] VITALS (8 sets, daily range): BP systolic 153–161; BP diastolic 80–87; PULSE 73–105; RESP 15–28; TEMP 36.7; O2SAT 96–98; BMI 23.6
[2022-06-25 20:10] LABS: Add Manual Diff / Slide Review NO; Basophils Absolute Auto 0 /uL (0-100); Basophils Percent Auto 0.7 % (0-2); Eosinophils Absolute Auto 100 /uL (0-450); Eosinophils Percent Auto 2.3 % (2-4); Hematocrit 40.4 % (41-53); Hemoglobin 13.7 g/dL (13.5-17.5); Lymphocytes Absolute Auto 900 /uL (1100-4500); Lymphocytes Percent Auto 16.2 % (25-40); Mean Corpuscular Hemoglobin 30.5 PG (26-34); Mean Corpuscular Volume 89.6 fL (80-100); Monocytes Absolute Auto 500 /uL (0-900); Monocytes Percent Auto 8.8 % (3-14); Neutrophils Absolute Auto 4200 /uL (1500-7000); Platelet Count 261 X10^3/uL (150-400); Red Cell Distribution Width 14.5 % (11.6-14.8); White Blood Cell Count 5.9 X10^3/uL (4.5-11.0)
[2022-06-25 20:20] LABS: Alanine Aminotransferase 24 IU/L (<50); Albumin 3.7 g/dL (3.5-5.0); Albumin Globulin Ratio 1.2 (1.0-2.8); Alkaline Phosphatase 92 U/L (38-126); Aspartate Aminotransferase 27 IU/L (17-59); BUN Creatinine Ratio 16.3 (6-22); Bilirubin Total 1.4 mg/dL (0.2-1.3); Blood Urea Nitrogen 20 mg/dL (9-20); Calcium 8.1 mg/dL (8.4-10.2); Carbon Dioxide 27 mmol/L (22-32); Chloride 105 mmol/L (98-107); Creatine Kinase 83 U/L (55-170); Estimated Glomerular Filt Rate 58 mL/min (>60); Glucose 107 mg/dL (80-110); HEMOLYSIS < 15 (0-50); Potassium 4.2 mmol/L (3.4-5.1); Sodium 138 mmol/L (137-145); Total Protein 6.7 g/dL (6.3-8.2)
[2022-06-25 20:23] LABS: COVID19 -Nasal RAPID Negative (Negative)
[2022-06-25 20:33] LABS: NT-proBNP (BNP-Adult 18+) 1210 pg/mL (<450); Troponin I < 0.012 ng/mL (0.01-0.034)
[2022-06-25 20:49] LABS: Magnesium 2.2 mg/dL (1.6-2.3)
--- NOTE | 2022-06-25 21:45 | DI.CT.S_ITS ---
PROCEDURE: CT HEAD/BRAIN WO CON INDICATIONS: ataxia TECHNIQUE: Noncontrast 4.5 mm thick angled axial sections acquired from the foramen magnum to the vertex, with coronal and sagittal reformats. For radiation dose reduction, the following was used: automated exposure control, adjustment of mA and/or kV according to patient size. COMPARISON: [facility], CT, CT HEAD/BRAIN WO CON, 03/15/2021, 14:41. FINDINGS: Image quality: Excellent. CSF spaces: Basal cisterns are patent. No extra-axial fluid collections. The ventricles are symmetric in size and shape. Brain: No intracranial bleeds or masses. There is cerebral volume loss for age, with resultant ventricular and sulcal prominence. There are periventricular and deep white matter chronic small vessel ischemic changes. There is intracranial internal carotid artery atherosclerosis. Skull and face: Calvarium and visualized facial bones appear intact, without suspicious lesions. Sinuses: Visualized sinuses and mastoids are clear. IMPRESSION: 1. No CT evidence of acute intracranial abnormalities. No significant changes from prior studies. Dictated by: Marco Antonio Gross M.D. on 06/25/2022 at 22:08 Approved by: Marco Antonio Gross M.D. on 06/25/2022 at 22:09
--- NOTE | 2022-06-25 22:30 | ED.NEUROSD ---
HPI - Neuro Symptoms/Deficit General Chief Complaint: Neuro Symptoms/Deficit Stated Complaint: Lightheadedness Time Seen by Provider: 06/25/22 21:43 Source: patient Mode of arrival: Ambulatory History of Present Illness HPI Narrative: 81-year-old gentleman with a history of a hypertension hyperlipidemia, BPH, anticoagulated on warfarin for chronic atrial fibrillation and aortic stenosis. He reports chronic lightheadedness as well as balance and vision issues was seen at urgent care yesterday with similar complaints reassurance was given. Returns today because he feels that his gait is uneven. He notes that after recent cataract surgery he has 2 different prescriptions with his lenses and he is wondering if the spatial disturbance because of that might be exacerbating his symptoms. He describes no chest pain no acute neurologic symptoms, no headaches no fevers, cough, chills, abdominal pain, vomiting, diarrhea, general malaise or myalgias. On Anticoagulants: Yes (warfarin) Related Data Home Medications Medication Instructions Recorded Confirmed multivitamin (Multiple Vitamins 1 tab PO DAILY ##0 03/06/13 06/24/22 tablet) cholecalciferol (vitamin D3) 50 2,000 unit PO DAILY #0 tabs 08/03/16 06/24/22 mcg (2,000 unit) tablet (Vitamin D3) Iron High Potency 27 mg PO DAILY 04/09/19 06/24/22 Ocuvite 30unit 5mg 150mg 1 cap PO DAILY 04/09/19 06/24/22 metoprolol succinate 100 mg 100 mg PO QAM 04/09/19 06/24/22 tablet,extended release 24 hr metoprolol succinate 25 mg 25 mg PO BEDTIME 07/18/20 06/24/22 tablet,extended release 24 hr (Toprol XL) atorvastatin 40 mg tablet 40 mg PO DAILY 11/19/20 06/24/22 warfarin 5 mg tablet See Rx Instructions .Route .COMPLEX 02/28/22 06/24/22 Previous Rx's Medication Instructions Recorded clobetasol 0.05 % topical ointment 1 applic topical BID PRN as 12/10/19 directed #30 grams finasteride 5 mg tablet 5 mg PO Q OTHER DAY #90 tabs 11/17/21 tamsulosin 0.4 mg capsule 0.8 mg PO BEDTIME #180 caps 11/17/21 furosemide 20 mg tablet (Lasix) 20 mg PO Q OTHER DAY #90 tabs 12/20/21 Allergies Allergy/AdvReac Type Severity Reaction Status Date / Time No Known Drug Allergies Allergy Verified 06/24/22 16:47 Review of Systems Review of Systems Narrative: Remainder of complete review of systems is otherwise unremarkable except for that included in the HPI. 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) Cervical somatic dysfunction Chronic atrial fibrillation (01/02/18) Chronic bilateral low back pain without sciatica Cranial somatic dysfunction Diplopia Elevated random blood glucose level Erectile dysfunction Essential hypertension (02/16/16) Fatigue Foot stiffness History of elevated PSA Incomplete emptying of bladder (02/16/16) Left arm weakness Pelvic somatic dysfunction Physician orders for life-sustaining treatment (POLST) form indicates patient wish for ue-afc-mgsavsbsgmx status Segmental and somatic dysfunction of lumbar region Segmental and somatic dysfunction of rib cage Segmental and somatic dysfunction of sacral region Segmental and somatic dysfunction of thoracic region Somatic dysfunction of both lower extremities Vitamin D deficiency Surgical History Hx of cholecystectomy Status post cholecystectomy Family History Mother CVA (cerebral vascular accident) Father Diabetes mellitus Brother Renal failure Social History marital status: number of children: 1 household members: none occupational status: previously employed Previous occupational history: [employer] Smoking Status: Former smoker alcohol intake: former caffeine: Yes Smoking Status: Former smoker alcohol intake frequency: holidays/special occasions only Substance Use Type: does not use Exam Initial Vital Signs Initial Vital Signs: Vital Signs Temperature 98.1 F 06/25/22 19:32 Pulse Rate 74 06/25/22 19:32 Respiratory Rate 18 06/25/22 19:32 Blood Pressure 161/80 H 06/25/22 19:32 Pulse Oximetry 97 06/25/22 19:32 Oxygen Delivery Method 06/25/22 19:32 General: Healthy appearing, in no acute distress. Able to give a complete and coherent history. Well-nourished well-developed HEENT: Moist mucous membranes, normal sclera with reactive pupils, Neck: No JVD, supple Respiratory: Lungs are clear to auscultation, no wheezing no rales no rhonchi. Full and symmetrical air movement Cardiac: Irregular with 3/6 systolic ejection murmur Abdomen: Soft, nontender, good bowel tones, no flank pain Skin: Warm and dry, no rashes Neurologic: Grossly neurologically intact with no obvious asymmetries or abnormalities. Steady gait, no footdrop, Extremities: No trauma, well perfused Psych: Cooperative, appropriate insight and affect Course Orders Ordered: ED Orders 06/25/22 19:40 COVID19 -Nasal RAPID/Pre-Proc Stat 06/25/22 19:46 EKG-12 Lead Stat 06/25/22 19:55 CMP [Comprehensive Metabolic Panel] Stat Complete Blood Count AUTO DIFF Stat Magnesium Stat NT-proBNP (BNP-Adult 18+) Stat Troponin & CK Cardiac Panel Stat 06/25/22 21:45 CT head/brain wo con Stat Vital Signs Vital signs: Vital Signs - 8 hr 06/25/22 19:32 06/25/22 20:34 Temperature 98.1 F Pulse Rate 74 73 Respiratory Rate 18 15 Blood Pressure 161/80 H Pulse Oximetry 97 97 Oxygen Delivery Method Room Air Room Air MDM - Neuro Symptoms/Deficit Lab Data Result diagrams: 06/25/22 19:55 06/25/22 19:55 Labs: Lab Results 06/25/22 06/25/22 06/25/22 Range/Units 19:40 19:55 19:55 WBC 5.9 (4.5-11.0) X10^3/uL RBC 4.50 (4.5-5.9) X10^6/uL Hgb 13.7 (13.5-17.5) g/dL Hct 40.4 L (41-53) % MCV 89.6 (80-100) fL MCH 30.5 (26-34) PG MCHC 34.0 (30-36) % RDW 14.5 (11.6-14.8) % Plt Count 261 (150-400) X10^3/uL Neut % (Auto) 72.0 (50-75) % Lymph % (Auto) 16.2 L (25-40) % [place] % (Auto) 8.8 (3-14) % Eos % (Auto) 2.3 (2-4) % Baso % (Auto) 0.7 (0-2) % Neut # (Auto) 4200 (3792-9542) /uL Lymph # (Auto) 900 L (7565-5809) /uL [place] # (Auto) 500 (0-900) /uL Eos # (Auto) 100 (0-450) /uL Baso # (Auto) 0 (0-100) /uL Sodium 138 (137-145) mmol/L Potassium 4.2 (3.4-5.1) mmol/L Chloride 105 (98-107) mmol/L Carbon Dioxide 27 (22-32) mmol/L BUN 20 (9-20) mg/dL Creatinine 1.23 (0.66-1.25) mg/dL Estimated GFR 58 L (>60) mL/min BUN/Creatinine Ratio 16.3 (6-22) Glucose 107 (80-110) mg/dL Calcium 8.1 L (8.4-10.2) mg/dL Magnesium (1.6-2.3) mg/dL Total Bilirubin 1.4 H (0.2-1.3) mg/dL AST 27 (17-59) IU/L ALT 24 (<50) IU/L Alkaline Phosphatase 92 (38-126) U/L Total Creatine Kinase 83 (55-170) U/L CK-MB (CK-2) TNP CK-MB (CK-2) Rel Index TNP Troponin I < 0.012 (0.01-0.034) ng/mL NT-Pro-B Natriuret Pep 1210 H (<450) pg/mL Total Protein 6.7 (6.3-8.2) g/dL Albumin 3.7 (3.5-5.0) g/dL Globulin 3.0 (1.7-4.1) g/dL Albumin/Globulin Ratio 1.2 (1.0-2.8) SARS-CoV-2 (PCR) Negative (Negative) 06/25/22 Range/Units 19:55 WBC (4.5-11.0) X10^3/uL RBC (4.5-5.9) X10^6/uL Hgb (13.5-17.5) g/dL Hct (41-53) % MCV (80-100) fL MCH (26-34) PG MCHC (30-36) % RDW (11.6-14.8) % Plt Count (150-400) X10^3/uL Neut % (Auto) (50-75) % Lymph % (Auto) (25-40) % [place] % (Auto) (3-14) % Eos % (Auto) (2-4) % Baso % (Auto) (0-2) % Neut # (Auto) (2689-0165) /uL Lymph # (Auto) (9240-0526) /uL [place] # (Auto) (0-900) /uL Eos # (Auto) (0-450) /uL Baso # (Auto) (0-100) /uL Sodium (137-145) mmol/L Potassium (3.4-5.1) mmol/L Chloride (98-107) mmol/L Carbon Dioxide (22-32) mmol/L BUN (9-20) mg/dL Creatinine (0.66-1.25) mg/dL Estimated GFR (>60) mL/min BUN/Creatinine Ratio (6-22) Glucose (80-110) mg/dL Calcium (8.4-10.2) mg/dL Magnesium 2.2 (1.6-2.3) mg/dL Total Bilirubin (0.2-1.3) mg/dL AST (17-59) IU/L ALT (<50) IU/L Alkaline Phosphatase (38-126) U/L Total Creatine Kinase (55-170) U/L CK-MB (CK-2) CK-MB (CK-2) Rel Index Troponin I (0.01-0.034) ng/mL NT-Pro-B Natriuret Pep (<450) pg/mL Total Protein (6.3-8.2) g/dL Albumin (3.5-5.0) g/dL Globulin (1.7-4.1) g/dL Albumin/Globulin Ratio (1.0-2.8) SARS-CoV-2 (PCR) (Negative) Urine Dip Bedside Urine Glucose Negative Bedside Urine Bilirubin - Negative Bedside Urine Ketone - Negative Urine Specific [place] 1.015 Bedside Urine Occult Blood - Negative Bedside Urine pH 6.0 Bedside Urine Protein - Negative Bedside Urine Urobilinogen - Negative Bedside Urine Nitrite - Negative Bedside Urine Leukocytes - Negative Esterase Imaging Data CT scan - head: Radiologist's Impression: FINDINGS:? Image quality:? Excellent.? ? CSF spaces:? Basal cisterns are patent.? No extra-axial fluid collections.? The ventricles are symmetric in size and shape.? ? Brain:? No intracranial bleeds or masses.? There is cerebral volume loss for age, with resultant ventricular and sulcal prominence.? There are periventricular and deep white matter chronic small vessel ischemic changes.? There is intracranial internal carotid artery atherosclerosis.? ? Skull and face:? Calvarium and visualized facial bones appear intact, without suspicious lesions.? ? Sinuses:? Visualized sinuses and mastoids are clear.? ? IMPRESSION:? 1. No CT evidence of acute intracranial abnormalities.? No significant changes from prior studies.? ? ? Dictated by: Marco Antonio Gross M.D. on 06/25/2022 at 22:08 ? ? ECG Data Interpretation: Atrial fibrillation with PVCs rate of 76 No acute ischemic changes MDM Narrative Medical decision making narrative: 81-year-old gentleman presents with nonspecific and what sounds like fairly chronic complaints. He notes that he has some mild ataxia that makes a point of walking at least 30 minutes a day. He has a cane available but chooses not to use it and has not suffered any falls recently. He is concerned that earlier today he may have been a bit more unsteady but seems to be much better this evening. He is not complaining of signs and symptoms of stroke. No evidence of acute infection, rapid atrial fibrillation, acute coronary syndrome, electrolyte abnormalities. He is wondering his depth perception difficulty with the different prescriptions in his cataract lens replacements might be contributing to this. At this point landing he is mostly looking for reassurance which I am able to give. Questions are answered. He will follow-up with his eye doctor and he is safe for home discharge Discharge Plan Departure Patient Disposition: Home Clinical Impression: Neurologic gait dysfunction Activity Restrictions/Additional Instructions: Thank you for coming in today Your workup in the emergency room is very reassuring. There is no sign of stroke, significant electrolyte abnormalities, infection, heart attack. You do have your chronic atrial fibrillation but your appropriately anticoagulated. Your kidney and liver function along with electrolytes are all normal. At this time I am very reassured with everything that I am finding. I would encourage you to follow-up with her primary care doctor. Regarding your gait an your balance, you may benefit from physical therapy to help with balance training. Regarding your eyes and the different prescriptions in each eye after cataract surgeries, I would encourage you to talk to your primary eye doctor and if you do find that your glasses are helpful I would encourage you to wear them. If you find that you are getting worse or develop any new symptoms, please feel free to return to the emergency department for further evaluation. Prescriptions: No Action multivitamin [Multiple Vitamins] 1 EACH tablet 1 tab PO DAILY Qty: 0 cholecalciferol (vitamin D3) [Vitamin D3] 2,000 UNIT tablet 2,000 unit PO DAILY Qty: 0 finasteride 5 mg tablet 5 mg PO Q OTHER DAY Qty: 90 3RF tamsulosin 0.4 mg capsule 0.8 mg PO BEDTIME Qty: 180 3RF Rx Instructions: 30 minutes following the same meal each day warfarin 5 mg tablet See Rx Instructions .ROUTE .COMPLEX Dose Instruction: Take 1/2 tablet daily except on and Mon take 1 or as directed by doctor ; Rx Instructions: Take 5mg Monday and Monday and 2.5mg all other days, or as directed. clobetasol 0.05 % ointment 1 applic topical BID PRN (Reason: as directed) Qty: 30 3RF furosemide [Lasix] 20 mg tablet 20 mg PO Q OTHER DAY Qty: 90 3RF metoprolol succinate 100 MG tablet extended release 24 hr 100 mg PO QAM Iron High Potency 27 mg tablet 27 mg PO DAILY Label Comments: Iron High Potency 240mg (27mg iron) Ocuvite 30unit 5mg 150mg 1 cap PO DAILY metoprolol succinate [Toprol XL] 25 mg tablet extended release 24 hr 25 mg PO BEDTIME atorvastatin 40 mg tablet 40 mg PO DAILY Referrals: Oleksandr Pinto DO [Primary Care Provider] -
== END 2022-06-25 23:07 | disposition home or self-care (01) ==
PROVIDERS: Emergency Provider Emergency Medicine; Family Provider Family Medicine; PCP Family Medicine
DX: R26.9 Unspecified abnormalities of gait and mobility (principal); R07.9 Chest pain, unspecified; Z79.01 Long term (current) use of anticoagulants; Z20.822 Contact with and (suspected) exposure to COVID-19
CPT/HCPCS: 70450; 80053; 81003; 82550; 83735; 83880; 84484; 85025; 87635; 93005; 93010; 99283; 99284; C9803

== ENCOUNTER 2022-06-28 19:00 | Observation (INO) | payer MEDICARE, OTHER, SELFPAY ==
[2022-06-28] VITALS (11 sets, daily range): BP systolic 145–178; BP diastolic 72–94; PULSE 74–94; RESP 14–39; TEMP 35.9–36.8; O2SAT 95–100; BMI 23.6; BMI 23.5
--- NOTE | 2022-06-28 19:12 | PC.NURSE ---
During pt episode of brief double/blurred vision, pt denies having unilateral weakness or facial numbness or other stroke symptoms per pt report.
--- NOTE | 2022-06-28 19:57 | DI.RAD.S_ITS ---
PROCEDURE: XR CHEST 1V INDICATIONS: chest pain TECHNIQUE: One view of the chest was acquired. COMPARISON: [facility], CR, XR CHEST 1V, 10/24/2021, 10:41. FINDINGS: Surgical changes and devices: None. Lungs and pleura: Chronic appearing pleural thickening along lateral periphery of bilateral lower lobes are seen unchanged from 202 study. Subtle increased opacities are again seen in bilateral lower lung tang also unchanged from prior study. No pleural effusions or pneumothorax. Mediastinum: Mediastinal contours appear normal. Heart size is enlarged. Bones and chest wall: No suspicious bony lesions. Overlying soft tissues appear unremarkable. IMPRESSION: Likely chronic parenchymal changes in bilateral lower lung tang and pleural thickening. No definite focal infiltrate. No pleural effusion or pneumothorax. Dictated by: Marco Antonio Gross M.D. on 06/28/2022 at 20:16 Approved by: Marco Atnonio Gross M.D. on 06/28/2022 at 20:17
[2022-06-28 20:09] LABS: Add Manual Diff / Slide Review NO; Basophils Absolute Auto 100 /uL (0-100); Eosinophils Absolute Auto 200 /uL (0-450); Eosinophils Percent Auto 2.8 % (2-4); Hematocrit 41.7 % (41-53); Lymphocytes Absolute Auto 1100 /uL (1100-4500); Lymphocytes Percent Auto 17.1 % (25-40); Mean Corpuscular HGB Conc 33.6 % (30-36); Mean Corpuscular Hemoglobin 30.5 PG (26-34); Mean Corpuscular Volume 90.8 fL (80-100); Monocytes Absolute Auto 600 /uL (0-900); Monocytes Percent Auto 9.4 % (3-14); Neutrophils Absolute Auto 4500 /uL (1500-7000); Neutrophils Percent Auto 69.7 % (50-75); Platelet Count 286 X10^3/uL (150-400); Red Blood Cell Count 4.59 X10^6/uL (4.5-5.9); Red Cell Distribution Width 14.5 % (11.6-14.8); White Blood Cell Count 6.5 X10^3/uL (4.5-11.0)
[2022-06-28 20:25] LABS: Alanine Aminotransferase 27 IU/L (<50); Albumin 3.9 g/dL (3.5-5.0); Albumin Globulin Ratio 1.3 (1.0-2.8); Alkaline Phosphatase 94 U/L (38-126); Aspartate Aminotransferase 32 IU/L (17-59); BUN Creatinine Ratio 18.3 (6-22); Bilirubin Total 1.2 mg/dL (0.2-1.3); Blood Urea Nitrogen 19 mg/dL (9-20); Calcium 8.2 mg/dL (8.4-10.2); Carbon Dioxide 27 mmol/L (22-32); Chloride 104 mmol/L (98-107); Creatine Kinase 83 U/L (55-170); Estimated Glomerular Filt Rate > 60 mL/min (>60); Glucose 108 mg/dL (80-110); HEMOLYSIS 23 (0-50); Lipase 366 U/L (23-300); Magnesium 2.2 mg/dL (1.6-2.3); Potassium 4.3 mmol/L (3.4-5.1); Sodium 137 mmol/L (137-145); Total Protein 6.9 g/dL (6.3-8.2)
--- NOTE | 2022-06-28 20:31 | DI.CT.S_ITS ---
PROCEDURE: CT ANGIO HEAD AND NECK INDICATIONS: Ataxia TECHNIQUE: Pre-contrast 5 mm thick sections acquired from the foramen magnum to the vertex. After the administration of intravenous contrast, 1 mm thick sections acquired from the aortic arch through the [place] of [place]. Post-contrast 4.5 mm thick sections then re-acquired from the foramen magnum to the vertex. 3-dimensional nhidpyt-olknipuym-vysalcxvpa (MIP) and/or volume rendering reformats were acquired of the central intracranial vasculature and neck separately. For radiation dose reduction, the following was used: automated exposure control, adjustment of mA and/or kV according to patient size. COMPARISON: [facility], CT, CT ANGIO HEAD AND NECK, 07/18/2020, 16:47. FINDINGS: Image quality: Excellent. BRAIN: CSF spaces: Basal cisterns are patent. No extra-axial fluid collections. There is moderate cerebral volume loss, with resultant ventricular and sulcal prominence. Brain: No intracranial hemorrhage, mass, or mass effect. There are subcortical, periventricular and deep white matter hypodensities consistent with moderate chronic small vessel ischemic changes. The hall-white matter junction appears preserved. No abnormal intracranial enhancement. Skull and face: Calvarium and facial bones appear intact, without suspicious lesions. Orbits appear normal. Sinuses: There is mucosal thickening within the ethmoid and sphenoid sinuses including near-complete opacification of the sphenoid sinuses. The mastoid air cells are clear. HEAD CT ANGIOGRAPHY: Anterior circulation: Intracranial internal carotid arteries are normal in size and appear patent bilaterally. There is mild atherosclerotic calcification along the cavernous segments of the internal carotid arteries. The paired anterior cerebral arteries appear patent bilaterally. The anterior communicating artery also appears patent. The middle cerebral arteries appear patent bilaterally. No high-grade stenosis, occlusion, or filling defects. No cerebral aneurysms identified. Posterior circulation: Visualized portions of the vertebral arteries demonstrate normal caliber, and join to form a patent basilar artery. The posterior cerebral arteries appears patent bilaterally. No high-grade stenosis, occlusion, or filling defects. No cerebral aneurysms identified. NECK CT ANGIOGRAPHY: Carotid system: The great vessels demonstrate a conventional anatomy as they arise from the aortic arch. The origins of the common carotid arteries appear patent. The common carotid arteries demonstrate normal caliber and courses. There is mild calcified plaque with minimal narrowing of less than 25% in the right carotid bulb. The left carotid bulb is widely patent. The internal carotid arteries demonstrate normal calibers and courses. Posterior circulation: The origins of the vertebral arteries both appear patent. The more superior extracranial portions of both vertebral arteries also demonstrate normal courses and calibers. They join to form a patent basilar artery. Soft tissues: Visualized neck soft tissues demonstrate no suspicious abnormalities. Bones: No suspicious bony lesions. Visualized cervical spine demonstrates multilevel degenerative disc disease and facet arthropathy. IMPRESSION: 1. No acute intracranial abnormality. 2. Moderate cerebral volume loss and chronic white matter small vessel ischemic changes. 3. No high-grade stenosis or occlusion of the central intracranial arteries. 4. No high-grade stenosis or occlusion of the head and neck arteries. Any quantitative measurements of stenosis were performed using NASCET criteria. Dictated by: Fabio Olson M.D. on 06/28/2022 at 21:44 Approved by: Fabio Olson M.D. on 06/28/2022 at 21:51
--- NOTE | 2022-06-28 20:32 | ED_ITS ---
HPI - Dizziness General Chief Complaint: Dizziness Stated Complaint: dizzy, double vision episode Time Seen by Provider: 06/28/22 19:58 Source: patient Mode of arrival: Ambulatory History of Present Illness HPI Narrative: Patient has history of TIA/AFib/CHF. Patient seen here 3 days ago for same complaint. Had normal head CT. Patient states 1 year ago had TIA. Admitted for this. Had physical therapy for ataxia. He did improve. However in the past few days the dizziness blurry vision and ataxia has returned. Patient states he favors walking to the left. No foot drop. No facial droop slurred speech weakness on 1 side of the body. Has chronic neuropathy of the feet. He states he does not know why he has that. No chest pain or palpitations. Related Data Home Medications Medication Instructions Recorded Confirmed multivitamin (Multiple Vitamins 1 tab PO DAILY ##0 03/06/13 06/24/22 tablet) cholecalciferol (vitamin D3) 50 2,000 unit PO DAILY #0 tabs 08/03/16 06/24/22 mcg (2,000 unit) tablet (Vitamin D3) Iron High Potency 27 mg PO DAILY 04/09/19 06/24/22 Ocuvite 30unit 5mg 150mg 1 cap PO DAILY 04/09/19 06/24/22 metoprolol succinate 100 mg 100 mg PO QAM 04/09/19 06/24/22 tablet,extended release 24 hr metoprolol succinate 25 mg 25 mg PO BEDTIME 07/18/20 06/24/22 tablet,extended release 24 hr (Toprol XL) atorvastatin 40 mg tablet 40 mg PO DAILY 11/19/20 06/24/22 warfarin 5 mg tablet See Rx Instructions .Route .COMPLEX 02/28/22 06/24/22 Previous Rx's Medication Instructions Recorded clobetasol 0.05 % topical ointment 1 applic topical BID PRN as 12/10/19 directed #30 grams finasteride 5 mg tablet 5 mg PO Q OTHER DAY #90 tabs 11/17/21 tamsulosin 0.4 mg capsule 0.8 mg PO BEDTIME #180 caps 11/17/21 furosemide 20 mg tablet (Lasix) 20 mg PO Q OTHER DAY #90 tabs 12/20/21 Allergies Allergy/AdvReac Type Severity Reaction Status Date / Time No Known Drug Allergies Allergy Verified 06/24/22 16:47 Review of Systems Review of Systems Narrative: GENERAL: Denies chills, fatigue, malaise, fever, sweats. HEENT: Denies sinus pain, ear pain, sore throat RESPIRATORY: Denies dyspnea, cough CARDIOVASCULAR: Denies chest pain, palpitations GASTROINTESTINAL: Denies nausea, vomiting, abdominal pain : Denies dysuria, frequency, hematuria MUSCULOSKELETAL: denies muscle or bony pain SKIN: Denies rash, skin lesions NEUROLOGIC: Denies weakness, no slurred speech or facial droop. 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) Cervical somatic dysfunction Chronic atrial fibrillation (01/02/18) Chronic bilateral low back pain without sciatica Cranial somatic dysfunction Diplopia Elevated random blood glucose level Erectile dysfunction Essential hypertension (02/16/16) Fatigue Foot stiffness History of elevated PSA Incomplete emptying of bladder (02/16/16) Left arm weakness Pelvic somatic dysfunction Physician orders for life-sustaining treatment (POLST) form indicates patient wish for le-lec-tkfppyjdsbl status Segmental and somatic dysfunction of lumbar region Segmental and somatic dysfunction of rib cage Segmental and somatic dysfunction of sacral region Segmental and somatic dysfunction of thoracic region Somatic dysfunction of both lower extremities Vitamin D deficiency Surgical History Hx of cholecystectomy Status post cholecystectomy Family History Mother CVA (cerebral vascular accident) Father Diabetes mellitus Brother Renal failure Social History marital status: number of children: 1 household members: none occupational status: previously employed Previous occupational history: [employer] Smoking Status: Former smoker alcohol intake: former caffeine: Yes Smoking Status: Former smoker alcohol intake frequency: holidays/special occasions only Substance Use Type: does not use Exam Narrative Exam Narrative: GENERAL: in no distress, not toxic not dyspneic HEAD: Normocephalic. EYES: Pupils equal round No scleral icterus. ENT: Mucous membranes moist. NECK: Trachea midline. CARDIOVASCULAR: Regular rate and rhythm without murmurs RESPIRATORY: Clear to auscultation. Breath sounds equal bilaterally. No wheezes, rales, or rhonchi. GASTROINTESTINAL: Abdomen soft, non-tender EXTREMITIES: No gross deformities. BACK: No flank tenderness. NEURO: AOx4. Clear speech no facial droop has slightly ataxic gait favoring to the left no foot drop. ?Light touch intact to bilateral face hands. ?Strong equal service crew leader bilaterally and ankle flexion hip flexion and knee flexion. ?Strong bilateral patellar reflexes. ?Steady Romberg, negative pronator drift, znrwng-cb-cglu and fiwg-gq-vuhd intact SKIN: Warm and dry PSYCH: Not anxious, is cooperative Initial Vital Signs Initial Vital Signs: Vital Signs Temperature 98.2 F 06/28/22 19:06 Pulse Rate 94 H 06/28/22 19:06 Respiratory Rate 18 06/28/22 19:06 Blood Pressure 178/83 H 06/28/22 19:06 Pulse Oximetry 97 06/28/22 19:06 Oxygen Delivery Method 06/28/22 19:06 Scores NIH Stroke Scale Level of Conciousness: Alert, keenly responsive Ask month/age: Answers both questions correctly. Open/close eyes, close hand: Performs both tasks correctly Best gaze horizontal: Normal Visual tang: No visual loss Facial palsy: Normal symetrical movement Left arm drift: No drift for full 10 sec Right arm drift: No drift for full 10 sec Left leg drift: No drift for full 5 sec Right leg drift: No drift for full 5 sec Limb ataxia: Present in one limb Sensory on face/arms/legs: Normal, no sensory loss Best language: No aphasia, normal Dysarthria: Normal Extinction or inattention: No abnormality Total NIH Stroke scale score: 1 Course Course Course Narrative: No new issues during course of stay Decision to Admit Date: 06/28/22 Decision to Admit time: 20:35 Orders Ordered: ED Orders 06/28/22 19:50 Complete Blood Count AUTO DIFF Stat Comprehensive Metabolic Panel Stat Lipase Stat Magnesium Stat Troponin & CK Cardiac Panel Stat 06/28/22 19:57 XR chest 1V Stat 06/28/22 19:59 EKG-12 Lead Routine 06/28/22 20:31 CT angio head and neck Stat 06/28/22 21:00 COVID19 -Nasal RAPID/Pre-Proc Stat 06/28/22 21:16 Urinalysis and Microscopic Stat Urine Culture Stat Acetaminophen (Acetaminophen 325 Mg Tablet) 650 mg PO Q6HR PRN PRN Reason: Fever/Mild Pain (1-3) Enoxaparin Sodium (Enoxaparin 40 Mg/0.4 Ml Syringe) 40 mg SUBCUT DAILY REN Sodium Chloride (Normal Saline 0.9%) 1,000 mls @ 60 mls/hr IV CONT REN Ondansetron HCl (Ondansetron 4 Mg Odt) 4 mg PO Q8HR PRN PRN Reason: Nausea And Vomiting Sennosides (Sennosides 8.6 Mg Tablet) 17.2 mg PO BEDTIME REN Discontinued Medications Sodium Chloride (Normal Saline 0.9%) 500 mls @ 1,000 mls/hr IV BOLUS ONE Stop: 06/28/22 21:00 Last Infusion: 06/28/22 22:54 Dose: 0 mls/hr Documented By: Admin: 06/28/22 22:24 Dose: 1,000 mls/hr Documented By: NICOLLE Reevaluation(s) Reevaluation #1: Updated patient results and agrees for admit for TIA/stroke workup. Consultations Consultation #1: Spoke with hospitalist, Mary Alice Marcano, will admit. Time: 22:38 Vital Signs Vital signs: Vital Signs - 8 hr 06/28/22 19:06 06/28/22 19:48 06/28/22 19:50 Temperature 98.2 F Pulse Rate 94 H 74 Respiratory Rate 18 Blood Pressure 178/83 H 153/74 H Blood Pressure [Orthostatic Lying] Blood Pressure [Orthostatic Sitting] Blood Pressure [Orthostatic Standing] Pulse Oximetry 97 97 Oxygen Delivery Method Room Air 06/28/22 19:50 06/28/22 20:00 06/28/22 20:00 Temperature Pulse Rate 79 78 Respiratory Rate 21 39 H Blood Pressure 145/72 H Blood Pressure [Orthostatic Lying] Blood Pressure [Orthostatic Sitting] Blood Pressure [Orthostatic Standing] Pulse Oximetry 97 98 Oxygen Delivery Method 06/28/22 20:27 06/28/22 20:27 06/28/22 20:29 Temperature Pulse Rate 77 Respiratory Rate Blood Pressure 176/73 H 157/76 H Blood Pressure [Orthostatic Lying] Blood Pressure [Orthostatic Sitting] Blood Pressure [Orthostatic Standing] Pulse Oximetry 97 Oxygen Delivery Method 06/28/22 20:29 06/28/22 20:30 06/28/22 20:44 Temperature Pulse Rate 78 83 Respiratory Rate Blood Pressure Blood Pressure [Orthostatic Lying] 157/76 H Blood Pressure [Orthostatic Sitting] 146/78 H Blood Pressure [Orthostatic Standing] 157/76 H Pulse Oximetry 96 95 Oxygen Delivery Method MDM - Dizziness Differential Diagnosis Differential diagnosis: Likely benign paroxysmal positional vertigo, orthostatic hypotension, vertebral basilar insufficiency, cerebrovascular accident, acute vestibular neuronitis and transient cerebral ischemia Medical Records Medical records narrative: [address] [address] [address] Scan Report Signed Patient: Dominic Mercedes MR#: [id number] : 1940 Acct:[id number] Age/Sex: 81 / M Date of Service: 06/25/22 Loc: ED Accession Number: [id number] ?? Procedure: CT head/brain wo con Ordering Provider: Julita Hearn MD PROCEDURE:? CT HEAD/BRAIN WO CON ? INDICATIONS:? ataxia ? TECHNIQUE:? Noncontrast 4.5 mm thick angled axial sections acquired from the foramen magnum to the vertex, with coronal and sagittal reformats.? For radiation dose reduction, the following was used:? automated exposure control, adjustment of mA and/or kV according to patient size.? ? COMPARISON:? [facility], CT, CT HEAD/BRAIN WO CON, 03/15/2021, 14:41. ? FINDINGS:? Image quality:? Excellent.? ? CSF spaces:? Basal cisterns are patent.? No extra-axial fluid collections.? The ventricles are symmetric in size and shape.? ? Brain:? No intracranial bleeds or masses.? There is cerebral volume loss for age, with resultant ventricular and sulcal prominence.? There are periventricular and deep white matter chronic small vessel ischemic changes.? There is intracranial internal carotid artery atherosclerosis.? ? Skull and face:? Calvarium and visualized facial bones appear intact, without suspicious lesions.? ? Sinuses:? Visualized sinuses and mastoids are clear.? ? IMPRESSION:? 1. No CT evidence of acute intracranial abnormalities.? No significant changes from prior studies.? ? ? Dictated by: Marco Antonio Gross M.D. on 06/25/2022 at 22:08 ? ? Approved by: Marco Antonio Gross M.D. on 06/25/2022 at 22:09 ? [address] [address] Echocardiography Report Signed Patient: Dominic Mercedes MR#: [id number] : 1940 Acct:[id number] Age/Sex: 81 / M Date of Service: 10/14/21 Loc: ECHO Accession Number: [id number] ?? Procedure: EC echo doppler complete Ordering Provider: Reji Grant MD ? [facility] +---------+? [facility]? +---------+ : ? :? [address] [place] [address]. ? : ? : : ? :? [place], [place] ? : ? : : ? :? [address] ? : ? : : ? : ? Phone: [phone] : ? : [phone]? [phone]? +---------+ ? Echocardiogram Report + + :Name: DOMINIC MERCEDES? Study Date: 10/14/2021 ? Height: 73 in? : :Hospital ? ? ReadingLocation: ? Weight: 180 lb : : ? Gender: Male ? BSA: 2.1 m2? ? : :: 1940? Age: 81 yrs? BP: 143/86 mmHg: :Reason For Study: AORTIC STENOSIS? : :Ordering Physician: YONIS,? : :REJI ? Performed By: Adelina Guajardo? : :Referring: REJI GRANT? : + + Interpretation Summary 1) Normal left ventricular thickness, size, wall motion, and systolic function (EF 55-60%). 2) Mildly enlarged right ventricular size with normal function. 3) The left atrium is severely dilated. The right atrium is moderately dilated. 4) There is calcific moderate to severe aortic stenosis (valve area 1.0cm2, mean gradient 11mmHg, severity ratio 0.29). 5) There is mild to moderate tricuspid regurgitation. 6) The right ventricular systolic pressure is estimated to be at least 28 mmHg based on an estimated right atrial pressure of 3 mm Hg. 7) The ascending aorta is mildly enlarged at 4.1cm. 8) Compared to the Echo done 10/14/2020, aortic stenosis has progressed slightly on this study. ? Procedure: ? A two-dimensional transthoracic echocardiogram with color flow and Doppler was performed. The study quality was technically adequate. Comparison is made with the echocardiogram of 10/14/2020. The patient was in atrial fibrillation with heart rates between 66-83 bpm during the exam. Left Ventricle: ? The left ventricle is normal in size and wall thickness. The ejection fraction is estimated to be 55-60%. Left ventricular systolic function appears normal without focal wall motion abnormalities. Diastolic function could not be accurately assessed due to atrial fibrillation. Right Ventricle: ? The right ventricle is mildly dilated. The right ventricular systolic function is normal. Atria: ? The left atrium is severely dilated. The right atrium is moderately dilated. There is no Doppler evidence for an interatrial shunt. Mitral Valve: ? The mitral valve is normal in structure and function. There is mild mitral annular calcification. There is mild mitral regurgitation. Aortic Valve: ? The aortic valve is heavily calcified. There is moderately reduced leaflet mobility. The aortic valve mean gradient is 11 mmHg. The calculated aortic valve area is 1.0 cm2. There is moderate to severe aortic stenosis. No aortic regurgitation is present. Tricuspid Valve: ? The tricuspid valve is normal in structure and function. There is mild to moderate tricuspid regurgitation. The right ventricular systolic pressure is estimated to be at least 28 mmHg based on an estimated right atrial pressure of 3 mm Hg. Pulmonic Valve: ? The pulmonic valve is not well visualized. There is no pulmonic valvular regurgitation. Great Vessels: ? The aortic root is normal size. The ascending aorta is moderately enlarged. The IVC is of normal diameter and collapses greater than 50% with a sniff. This suggests a low right atrial pressure of 3 mm Hg. Pericardium/ Pleura ? There is no pericardial effusion. There is no pleural effusion. ? MMode/2D Measurements & Calculations LVIDd: 4.2 cm ? LVOT diam: 2.1 cm LVIDs: 2.7 cm ? Ao root diam: 3.5 cm FS: 35.1 %? asc Aorta Diam: 4.1 cm IVSd: 1.0 cm LVPWd: 0.92 cm LV whitaker. diameter/BSA (cm/m^2): 2.0 LV sys. diameter/BSA (cm/m^2): 1.3 ? LA A2 area: 29.1 cm2? RA long axis: 6.5 cm LA A4 area: 29.4 cm2? RA area: 22.9 cm2 LA length (vol): 7.1 cm ? RA vol: 69.0 ml LA vol: 102.9 ml? RA : 33.5 ml/m2 LA vol index: 50.0 ml/m2? IVC diam: 1.5 cm ? RVD1 (basal): 4.5 cm TAPSE: 2.1 cm ? Doppler Measurements & Calculations Ao V2 max: 218.1 cm/sec ? LVOT Max Lazaro: 67.3 cm/sec Ao V2 mean: 148.5 cm/sec? LV V1 max P.8 mmHg Ao max P.0 mmHg? LV V1 VTI: 13.2 cm Ao mean P.9 mmHg ? CIERRA(I,D): 0.95 cm2 Ao V2 VTI: 45.8 cm? CIERRA(V,D): 1.0 cm2 ? sev ratio: 0.29 ? CIERRA indexed to BSA (cm^2/m^2): 0.46 ? MV E max lazaro: 87.5 cm/sec ? TR max lazaro: 250.8 cm/sec MV A max lazaro: 2.3 cm/sec? TR max P.2 mmHg MV E/A: 38.4? PA V2 max: 81.3 cm/sec Med Peak E' Lazaro: 12.7 cm/sec? ? ? PA V2 mean: 60.4 cm/sec E/E' med: 6.9 ? PA mean P.6 mmHg Lat Peak E' Lazaro: 11.5 cm/sec? ? ? PA pr(Accel): 36.2 mmHg E/E' lat: 7.6 E/e' average: 7.3 MV dec time: 0.20 sec ? SV(LVOT): 43.7 ml ? Reading Physician:11:[address] [address] Magnetic Resonance Report Signed Patient: Dominic Mercedes MR#: [id number] : 1940 Acct:[id number] Age/Sex: 80 / M Date of Service: 07/18/20 Loc: 216-1 Accession Number: [id number] ?? Procedure: MR stroke Ordering Provider: Pau Forrester PROCEDURE:? MR STROKE Pre- and post-contrast brain MRI, non-contrast brain MR angiogram, pre- and postcontrast neck MR angiogram ? INDICATIONS:? left hand weakness, ?TIA/CVA ? TECHNIQUE:? Brain:? Noncontrast axial T1 spin echo, axial T2 fast spin echo, sagittal and axial FLAIR, coronal T2 fast spin echo, axial gradient echo, axial diffusion and ADC through the brain.? After the administration of contrast, axial 3D VIBE of the cranial vasculature and brain.? Brain MRA:? Non-contrast 3-D time of flight MR angiogram, with multiple mmuaual-vbeldrite-frqwjjiyla (MIP) reformats performed.? Neck MRA:? Axial and sagittal TruFISP through the neck.? Coronal dynamic MR angiogram during administration of contrast in the arterial and venous phases, with 3- dimenstional zoknndv-zrwvsolnx-wqqbmnzutz (MIP) reformats constructed from subtraction images.? ? COMPARISON:? [facility], CT, CT ANGIO HEAD AND NECK, 07/18/2020, 16:47.? [facility], CT, CT STROKE, 07/18/2020, 16:47. ? FINDINGS:? Image quality:? Excellent.? ? BRAIN:? CSF spaces:? Ventricles are normal in size and shape.? Basal cisterns are casas nt.? No extra-axial fluid collections.? Brain:? No intracranial bleeds or mass effects.? Duenas-white matter interface is normal.? Diffusion weighted images show no acute ischemic insults.? Brainstem appears normal.? Brain parenchymal volume loss is seen.? Chronic small vessel ischemic change is seen.? Normal intravascular flow voids are present.? No abnormal intracranial enhancement.? Skull and face:? Calvarial marrow signal is normal.? Orbits appear normal.? Note is made of bilateral lens replacements. Sinuses:? Focal mucosal thickening is seen involving the left anterior ethmoid air cells. ?There is relatively prominent opacification seen of the sphenoid sinuses.? Mild mucosal thickening is seen elsewhere within the paranasal sinuses. No abnormal fluid is seen within the mastoid air cells. ? ? BRAIN MR ANGIOGRAM:? Anterior circulation:? Intracranial internal carotid arteries are normal in size and enhancement.? The flow within the paired anterior cerebral arteries is normal and symmetric.? The flow within the middle cerebral arteries is normal and symmetric.? The anterior communicating artery is not well seen.? No stenoses, occlusions, or aneurysms.? Posterior circulation:? The visualized portions of the vertebral arteries demonstrate normal caliber, and join to form a normal appearing basilar artery.? The flow within the posterior cerebral arteries is normal and symmetric.? No stenoses, occlusions, or aneurysms.? ? NECK MR ANGIOGRAM:? Carotids:? Great vessels demonstrate a conventional anatomy as they arise from the aortic arch.? The origins of the common carotid arteries appear patent.? The calibers and courses of both common carotid arteries are normal.? The bifurcation regions appear normal bilaterally.? The internal carotid arteries demonstrate normal course and caliber. ? Posterior circulation:? The origins of the vertebral arteries appear patent.? More superior portions of both vertebral arteries demonstrate normal course and caliber, and join to form a normal appearing basilar artery.? Miscellaneous:? Subclavian arteries appear patent.? Pre-contrast images through the neck show no soft tissue abnormalities.? ? ? IMPRESSION:? ? BRAIN MRI:? No findings of acute or subacute infarction can be seen. ? No masses or abnormal enhancement can be seen.? ? Note is made of age-appropriate brain parenchymal volume loss and chronic small vessel ischemic changes. ? Paranasal sinus disease is seen. ? ? BRAIN MR ANGIOGRAM:? No significant intracranial arterial abnormality is seen.? ? ? NECK MR ANGIOGRAM:? Within the arteries of the neck, no hemodynamically signi ficant stenosis can be seen. ? ? ? Dictated by: Rafal Jackson M.D. on 07/19/2020 at 10:10 ? ? Approved by: Rafal Jackson M.D. on 07/19/2020 at 10:14 ? Lab Data Result diagrams: 06/28/22 19:50 06/28/22 19:50 Labs: Lab Results 06/28/22 06/28/22 06/28/22 Range/Units 19:50 19:50 19:50 WBC 6.5 (4.5-11.0) X10^3/uL RBC 4.59 (4.5-5.9) X10^6/uL Hgb 14.0 (13.5-17.5) g/dL Hct 41.7 (41-53) % MCV 90.8 (80-100) fL MCH 30.5 (26-34) PG MCHC 33.6 (30-36) % RDW 14.5 (11.6-14.8) % Plt Count 286 (150-400) X10^3/uL Neut % (Auto) 69.7 (50-75) % Lymph % (Auto) 17.1 L (25-40) % [place] % (Auto) 9.4 (3-14) % Eos % (Auto) 2.8 (2-4) % Baso % (Auto) 1.0 (0-2) % Neut # (Auto) 4500 (1786-5840) /uL Lymph # (Auto) 1100 (9385-3809) /uL [place] # (Auto) 600 (0-900) /uL Eos # (Auto) 200 (0-450) /uL Baso # (Auto) 100 (0-100) /uL PT 27.3 H (10.1-12.7) SECONDS INR 2.4 H (0.9-1.3) APTT 44 H (26-36) SECONDS Sodium 137 (137-145) mmol/L Potassium 4.3 (3.4-5.1) mmol/L Chloride 104 (98-107) mmol/L Carbon Dioxide 27 (22-32) mmol/L BUN 19 (9-20) mg/dL Creatinine 1.04 (0.66-1.25) mg/dL Estimated GFR > 60 (>60) mL/min BUN/Creatinine Ratio 18.3 (6-22) Glucose 108 (80-110) mg/dL Calcium 8.2 L (8.4-10.2) mg/dL Magnesium 2.2 (1.6-2.3) mg/dL Total Bilirubin 1.2 (0.2-1.3) mg/dL AST 32 (17-59) IU/L ALT 27 (<50) IU/L Alkaline Phosphatase 94 (38-126) U/L Total Creatine Kinase 83 (55-170) U/L CK-MB (CK-2) TNP CK-MB (CK-2) Rel Index TNP Troponin I < 0.012 (0.01-0.034) ng/mL Total Protein 6.9 (6.3-8.2) g/dL Albumin 3.9 (3.5-5.0) g/dL Globulin 3.0 (1.7-4.1) g/dL Albumin/Globulin Ratio 1.3 (1.0-2.8) Lipase 366 H (23-300) U/L Urine Color Urine Appearance Urine pH (4.5-8.0) Ur Specific [place] (1.000-1.035) Urine Protein (Negative) Urine Glucose (UA) (Negative) g/dL Urine Ketones (NEGATIVE) Urine Occult Blood (Negative) Urine Nitrate (Negative) Urine Bilirubin (NEGATIVE) Urine Urobilinogen (0.2) E.U./dL Ur Leukocyte Esterase (NEGATIVE) Urine RBC (0-5/HPF) Urine WBC (0-5/HPF) Urine Bacteria (None) Ur Culture Indicated? SARS-CoV-2 (PCR) (Negative) 06/28/22 06/28/22 Range/Units 21:00 21:16 WBC (4.5-11.0) X10^3/uL RBC (4.5-5.9) X10^6/uL Hgb (13.5-17.5) g/dL Hct (41-53) % MCV (80-100) fL MCH (26-34) PG MCHC (30-36) % RDW (11.6-14.8) % Plt Count (150-400) X10^3/uL Neut % (Auto) (50-75) % Lymph % (Auto) (25-40) % [place] % (Auto) (3-14) % Eos % (Auto) (2-4) % Baso % (Auto) (0-2) % Neut # (Auto) (8611-2271) /uL Lymph # (Auto) (4987-9787) /uL [place] # (Auto) (0-900) /uL Eos # (Auto) (0-450) /uL Baso # (Auto) (0-100) /uL PT (10.1-12.7) SECONDS INR (0.9-1.3) APTT (26-36) SECONDS Sodium (137-145) mmol/L Potassium (3.4-5.1) mmol/L Chloride (98-107) mmol/L Carbon Dioxide (22-32) mmol/L BUN (9-20) mg/dL Creatinine (0.66-1.25) mg/dL Estimated GFR (>60) mL/min BUN/Creatinine Ratio (6-22) Glucose (80-110) mg/dL Calcium (8.4-10.2) mg/dL Magnesium (1.6-2.3) mg/dL Total Bilirubin (0.2-1.3) mg/dL AST (17-59) IU/L ALT (<50) IU/L Alkaline Phosphatase (38-126) U/L Total Creatine Kinase (55-170) U/L CK-MB (CK-2) CK-MB (CK-2) Rel Index Troponin I (0.01-0.034) ng/mL Total Protein (6.3-8.2) g/dL Albumin (3.5-5.0) g/dL Globulin (1.7-4.1) g/dL Albumin/Globulin Ratio (1.0-2.8) Lipase (23-300) U/L Urine Color Yellow Urine Appearance Clear Urine pH 5.5 (4.5-8.0) Ur Specific [place] 1.015 (1.000-1.035) Urine Protein Negative (Negative) Urine Glucose (UA) Negative (Negative) g/dL Urine Ketones Negative (NEGATIVE) Urine Occult Blood Trace-lysed (Negative) Urine Nitrate Negative (Negative) Urine Bilirubin Negative (NEGATIVE) Urine Urobilinogen 0.2 (0.2) E.U./dL Ur Leukocyte Esterase 1+ H (NEGATIVE) Urine RBC None seen (0-5/HPF) Urine WBC None seen (0-5/HPF) Urine Bacteria None seen (None) Ur Culture Indicated? Specimen cultured SARS-CoV-2 (PCR) Negative (Negative) Imaging Data Chest x-ray: Radiologist's Impression: [address] [address] XRay Report Signed Patient: Dominic Mercedes MR#: [id number] : 1940 Acct:[id number] Age/Sex: 81 / M Date of Service: 06/28/22 Loc: ED Accession Number: [id number] ?? Procedure: XR chest 1V Ordering Provider: Dominic Vera MD PROCEDURE:? XR CHEST 1V ? INDICATIONS:? chest pain ? TECHNIQUE:? One view of the chest was acquired.? ? COMPARISON:? [facility], CR, XR CHEST 1V, 10/24/2021, 10:41. ? FINDINGS:? ? Surgical changes and devices:? None.? ? Lungs and pleura:? Chronic appearing pleural thickening along lateral periphery of bilateral lower lobes are seen unchanged from 2020 study.? Subtle increased opacities are again seen in bilateral lower lung tang also unchanged from prior study.? No pleural effusions or pneumothorax.? ? Mediastinum:? Mediastinal contours appear normal.? Heart size is enlarged.? ? Bones and chest wall:? No suspicious bony lesions.? Overlying soft tissues appear unremarkable.? ? IMPRESSION:? Likely chronic parenchymal changes in bilateral lower lung tang and pleural thickening.? No definite focal infiltrate.? No pleural effusion or pneumothorax. ? ? Dictated by: Marco Antonio Gross M.D. on 06/28/2022 at 20:16 ? ? Approved by: Marco Antonio Gross M.D. on 06/28/2022 at 20:17 ? CTA - brain/neck: Radiologist's Impression: [place] [address] CT Scan Report Signed Patient: Dominic Mercedes MR#: [id number] : 1940 Acct:[id number] Age/Sex: 81 / M Date of Service: 06/28/22 Loc: ED Accession Number: [id number] ?? Procedure: CT angio head and neck Ordering Provider: Dominic Vera MD PROCEDURE:? CT ANGIO HEAD AND NECK ? INDICATIONS:? Ataxia ? TECHNIQUE:? Pre-contrast 5 mm thick sections acquired from the foramen magnum to the vertex.? After the administration of intravenous contrast, 1 mm thick sections acquired from the aortic arch through the [place].? Post-contrast 4.5 mm thick sections then re- acquired from the foramen magnum to the vertex.? 3-dimensional m jwzazm-eodbaghap-baoryykhoc (MIP) and/or volume rendering reformats were acquired of the central intracranial vasculature and neck separately. For radiation dose reduction, the following was used:? au tomated exposure control, adjustment of mA and/or kV according to patient size.? ? COMPARISON:? [facility], CT, CT ANGIO HEAD AND NECK, 07/18/2020, 16:47. ? FINDINGS:? Image quality:? Excellent.? ? BRAIN:? CSF spaces:? Basal cisterns are patent.? No extra-axial fluid collections.? There is moderate cerebral volume loss, with resultant ventricular and sulcal prominence.? ? Brain:? No intracranial hemorrhage, mass, or mass effect.? There are subcortical, periventricular and deep white matter hypodensities consistent with moderate chronic small vessel ischemic changes.? The duenas-white matter junction appears preserved.? No abnormal intracranial enhancement.? ? Skull and face:? Calvarium and facial bones appear intact, without suspicious lesions.? Orbits appear normal.? ? Sinuses:? There is mucosal thickening within the ethmoid and sphenoid sinuses including near-complete opacification of the sphenoid sinuses.? The mastoid air cells are clear. ? HEAD CT ANGIOGRAPHY:? Anterior circulation:? Intracranial internal carotid arteries are normal in size and appear patent bilaterally.? There is mild atherosclerotic calcification along the cavernous segments of the internal carotid arteries.? The paired anterior cerebral arteries appear patent bilaterally.? The anterior communicating artery also appears patent. The middle cerebral arteries appear patent bilaterally.? No high-grade stenosis, occlusion, or filling defects.? No cerebral aneurysms identified. ? Posterior circulation:? Visualized portions of the vertebral arteries demonstrate normal caliber, and join to form a patent basilar artery.? The posterior cerebral arteries appears patent bilaterally.? No high-grade stenosis, occlusion, or filling defects.? No cerebral aneurysms identified. ? NECK CT ANGIOGRAPHY:? Carotid system:? The great vessels demonstrate a conventional anatomy as they arise from the aortic arch.? The origins of the common carotid arteries appear patent.? The common carotid arteries demonstrate normal caliber and courses.? There is mild calcified plaque with minimal narrowing of less than 25% in the right carotid bulb.? The left carotid bulb is widely patent.? The internal carotid arteries demonstrate normal calibers and courses. ? ? Posterior circulation:? The origins of the vertebral arteries both appear patent.? The more superior extracranial portions of both vertebral arteries also demonstrate normal courses and calibers.? They join to form a patent basilar artery.? ? Soft tissues:? Visualized neck soft tissues demonstrate no suspicious abnormalities.? ? Bones:? No suspicious bony lesions.? Visualized cervical spine demonstrates multilevel degenerative disc disease and facet arthropathy. ? ? IMPRESSION:? ? 1. No acute intracranial abnormality. ? 2. Moderate cerebral volume loss and chronic white matter small vessel ischemic changes. ? 3. No high-grade stenosis or occlusion of the central intracranial arteries. ? 4. No high-grade stenosis or occlusion of the head and neck arteries.? ? Any quantitative measurements of stenosis were performed using NASCET criteria.? ? ? Dictated by: Fabio Olson M.D. on 06/28/2022 at 21:44 ? ? Approved by: Fabio Olson M.D. on 06/28/2022 at 21:51 ? ECG Data Interpretation: Atrial fibrillation rate 74, no ST elevation or depression MDM Narrative Medical decision making narrative: Appropriate for admission. No neuro consult this time. Onset more than 3 days ago. Appropriate for admission for balance of workup for TIA/ataxia including MRI and echocardiogram. Reviewed with patient and hospitalist and agree for admit. NIH score given 1 due to ataxia with walking. I had to listed under 1 limb for ataxia. Discharge Plan Departure Patient Disposition: Admitted as Observation Clinical Impression: Ataxia Admit Date/Time: 06/28/22 23:04 Admit Provider: Mary Alice Marcano
[2022-06-28 20:37] LABS: Troponin I < 0.012 ng/mL (0.01-0.034)
[2022-06-28 21:24] LABS: COVID19 -Nasal RAPID Negative (Negative)
[2022-06-28 21:48] LABS: Appearance Urine UA CLEAR; Bilirubin Urine UA NEGATIVE (NEGATIVE); Color Urine UA YELLOW; Glucose Urine UA NEGATIVE (Negative); Ketones Urine UA NEGATIVE (NEGATIVE); Leukocyte Esterase Urine UA 1+ (NEGATIVE); Nitrite Urine UA NEGATIVE (Negative); Occult Blood Urine UA TRACE-LYSED (Negative); Protein Urine UA NEGATIVE (Negative); Specific Gravity Urine UA 1.015 (1.000-1.035); Urobilinogen Urine UA 0.2 E.U./dL (0.2); pH Urine UA 5.5 (4.5-8.0)
[2022-06-28 22:11] LABS: Bacteria Urine None Seen; Culture Indicated Urine Specimen Cultured; RBC Urine None Seen (0-5/HPF); WBC Urine None Seen (0-5/HPF)
[2022-06-28] MEDS: SODIUM CHLORIDE 0.9% 500 ML 1000 ML IV (22:24)
[2022-06-29] VITALS (10 sets, daily range): BP systolic 111–164; BP diastolic 51–94; PULSE 64–85; RESP 14–17; TEMP 36–36.3; O2SAT 97–100
[2022-06-29 00:03] LABS: INR 2.4 (0.9-1.3); Prothrombin Time 27.3 SECONDS (10.1-12.7)
[2022-06-29 00:05] LABS: PTT Partial Thromboplastin Tim 44 SECONDS (26-36)
[2022-06-29 00:19] LABS: NT-proBNP (BNP-Adult 18+) 1850 pg/mL (<450)
[2022-06-29] MEDS: SODIUM CHLORIDE 0.9% 1,000 ML 60 ML IV (00:25)
[2022-06-29] MEDS: ATORVASTATIN 20 MG TABLET 40 MG PO (01:09)
[2022-06-29] MEDS: METOPROLOL ER 25 MG TABLET PO (01:09)
[2022-06-29] MEDS: TAMSULOSIN 0.4 MG CAPSULE 0.8 MG PO (01:09)
[2022-06-29] MEDS: WARFARIN 5 MG TABLET PO (01:10)
--- NOTE | 2022-06-29 05:19 | P.HP_ITS ---
History of Present Illness History of Present Illness Date Patient Seen: 06/28/22 Time Patient Seen: 23:47 Chief complaint: dizzy, double vision episode Narrative: Nestor Mercedes is a 81 yr old male with a history of TIA/permanent AFib/CHF, mild aortic stenosis, hyperlipidemia, HTN, neuropathy, chronic anticoagulation, who presented to the ED c/o worsening dizziness, ataxia, blurry vision a balance and coordination issues. Patient was seen by his PCP on 06/24/2002 for this issue, and was seen in the ED on 06/25/2022. In ED the patient noted that the past few days the dizziness blurry vision and ataxia has returned and worsened.? Patient states he favors walking to the left.? No foot drop.? No facial droop slurred speech weakness on 1 side of the body. No chest pain, palpitations, shortness of breath, cough, upper respiratory symptoms, headache, difficulty swallowing, no recent illness injury or trauma, no recent head injury, abdominal pain, nausea, vomiting, diarrhea fever, body aches, or chills. 06/25/[address] Mark:ED- 81-year-old gentleman presents with nonspecific and what sounds like fairly chronic complaints.? He notes that he has some mild ataxia that makes a point of walking at least 30 minutes a day.? He has a cane available but chooses not to use it and has not suffered any falls recently.? He is concerned that earlier today he may have been a bit more unsteady but seems to be much better this evening.? He is not complaining of signs and symptoms of stroke.? No evidence of acute infection, rapid atrial fibrillation, acute co ronary syndrome, electrolyte abnormalities.? He is wondering his depth perception difficulty with the different prescriptions in his cataract lens replacements might be contributing to this.? At this point landing he is mostly looking for reassurance which I am able to give.? Questions are answered.? He will follow-up with his eye doctor and he is safe for home discharge 06/24/2022 per longely PCP: 81-year-old male with chronic balance and equilibrium issues, frequent lightheadedness, aortic stenosis presents with concern for lightheadedness that is more persistent than usual today, and ongoi ng issues with vision change, blurred vision that occur when he stands up.? Patient's neurologic exam today was unremarkable except for his gait which is at baseline per patient.? Low suspicion for acute CVA however did eligibility counselor the patient that if he has new or worsening symptoms including difficulty with coordination or one-sided weakness, speech changes or increasing difficulty with walking he should report to the emergency department immediately.? Do suspect that patient's aortic valve is responsible for some of his symptoms as well as probably some mild to moderate dehydration.? He is encouraged to hydrate with fluids of water and electrolyte replacement as well, moves slowly particularly when he is transitioning from sitting to standing and monitor his symptoms carefully.? Discussed possibly trying meclizine however do not feel that this is most appropriate for this patient and his symptoms are more likely explained by dehydration and his valve stenosis.? Did encourage him to contact his project design engineer and see if he can get in to be seen sooner as his next appointment is not for few months.? Also encouraged the patient to check in with his son gisele and in the morning to see how he is doing and discuss follow-up.? Return precautions provided, follow-up plan discussed, all questions answered. Patient's vitals upon admit temp 98.2?, BP 157/76, HR 83, RR 14, O2 saturation 100% on room air, at the time of admit exam patient is resting comfortably on the ED gurney in no distress no discomfort, stable. Patient's CBC CMP and liver panel are all unremarkable, UA is negative, NIH of 1 suspect that this is baseline for the patient. Lipase 366, head neck CTA is unremarkable, patient's EKG AFib with a rate of [address] or T-wave changes. Chest Xray likely chronic parenchymal changes in bilateral lower lung tang and pleural thickening.? No definite focal infiltrate.? No pleural effusion or pneumothorax. Echo 10/2021 EF of 55-60%. Patient admitted for neurological gait instability/vertigo. ? 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) Cervical somatic dysfunction Chronic atrial fibrillation (01/02/18) Chronic bilateral low back pain without sciatica Cranial somatic dysfunction Diplopia Elevated random blood glucose level Erectile dysfunction Essential hypertension (02/16/16) Fatigue Foot stiffness History of elevated PSA Incomplete emptying of bladder (02/16/16) Left arm weakness Pelvic somatic dysfunction Physician orders for life-sustaining treatment (POLST) form indicates patient wish for kq-ods-svvjyemgrsp status Segmental and somatic dysfunction of lumbar region Segmental and somatic dysfunction of rib cage Segmental and somatic dysfunction of sacral region Segmental and somatic dysfunction of thoracic region Somatic dysfunction of both lower extremities Vitamin D deficiency Surgical History Hx of cholecystectomy Status post cholecystectomy Family & Social History Family History Mother CVA (cerebral vascular accident) Father Diabetes mellitus Brother Renal failure Social History: household members none Prior Living Arrangements House Safety & Behavioral: Feels Safe in Current Yes Environment Been Physically Hurt or No Threatened By a Person Tobacco & Substance use: Smoking Status Former smoker alcohol intake former alcohol intake frequency holiday/special occasion Substance Use Type does not use Meds Home Medications and Allergies Home Medications Medication Instructions Recorded Confirmed Type multivitamin (Multiple Vitamins 1 tab PO DAILY ##0 03/06/13 06/24/22 History tablet) cholecalciferol (vitamin D3) 50 2,000 unit PO DAILY #0 tabs 08/03/16 06/24/22 History mcg (2,000 unit) tablet (Vitamin D3) Iron High Potency 27 mg PO DAILY 04/09/19 06/24/22 History Ocuvite 30unit 5mg 150mg 1 cap PO DAILY 04/09/19 06/24/22 History metoprolol succinate 100 mg 100 mg PO QAM 04/09/19 06/24/22 History tablet,extended release 24 hr clobetasol 0.05 % topical ointment 1 applic topical BID PRN as 12/10/19 06/24/22 Rx directed #30 grams metoprolol succinate 25 mg 25 mg PO BEDTIME 07/18/20 06/24/22 History tablet,extended release 24 hr (Toprol XL) atorvastatin 40 mg tablet 40 mg PO DAILY 11/19/20 06/24/22 History finasteride 5 mg tablet 5 mg PO Q OTHER DAY #90 tabs 11/17/21 06/24/22 Rx tamsulosin 0.4 mg capsule 0.8 mg PO BEDTIME #180 caps 11/17/21 06/24/22 Rx furosemide 20 mg tablet (Lasix) 20 mg PO Q OTHER DAY #90 tabs 12/20/21 06/24/22 Rx warfarin 5 mg tablet See Rx Instructions .Route .COMPLEX 02/28/22 06/24/22 History Allergies Allergy/AdvReac Type Severity Reaction Status Date / Time No Known Drug Allergies Allergy Verified 06/24/22 16:47 Review of Systems Review of Systems Narrative: All 12 point systems reviewed with the patient and are negative except otherwise documented. Exam Vital Signs (past 8 hours): - 06/28/22 23:05 06/28/22 23:06 06/29/22 01:09 Temperature 96.7 F L 96.7 F L Pulse Rate 74 74 74 Pulse Rate [Orthostatic Lying] Pulse Rate [Orthostatic Sitting] Pulse Rate [Orthostatic Standing] Respiratory Rate 14 14 Blood Pressure 164/94 H 164/94 H 164/94 H Blood Pressure [Orthostatic Lying] Blood Pressure [Orthostatic Sitting] Blood Pressure [Orthostatic Standing] Pulse Oximetry 98 98 Oxygen Flow Rate 0 0 06/29/22 03:20 06/29/22 03:20 06/29/22 02:00 Temperature 97.3 F L Pulse Rate 64 66 Pulse Rate [Orthostatic Lying] 64 Pulse Rate [Orthostatic Sitting] 67 Pulse Rate [Orthostatic Standing] 69 Respiratory Rate 14 Blood Pressure 125/69 128/69 Blood Pressure [Orthostatic Lying] 125/69 Blood Pressure [Orthostatic Sitting] 121/68 Blood Pressure [Orthostatic Standing] 132/76 Pulse Oximetry 100 Oxygen Flow Rate 0 Oxygen Delivery Method Room Air Oxygen Flow Rate 0 Narrative Exam Narrative: General: Healthy appearing, in no acute distress.? Able to give a complete and coherent history.? Well-nourished well-developed HEENT:? Moist mucous membranes, normal sclera with reactive pupils, Neck:? No JVD, supple Respiratory:? Lungs are clear to auscultation, no wheezing no rales no rhonchi.? Full and symmetrical air movement Cardiac:? Irregular with 3/6 systolic ejection murmur Abdomen:? Soft, nontender, good bowel tones, no flank pain Skin:? Warm and dry, no rashes Neurologic:? Grossly neurologically intact with no obvious asymmetries or abnormalities.no footdrop Extremities:? No trauma, well perfused Psych:? Cooperative, appropriate insight and affect Objective Labs Result Diagrams: 06/28/22 19:50 06/28/22 19:50 Labs: Laboratory Results - last 24 hr 06/28/22 06/28/22 06/28/22 19:50 19:50 19:50 WBC 6.5 RBC 4.59 Hgb 14.0 Hct 41.7 MCV 90.8 MCH 30.5 MCHC 33.6 RDW 14.5 Plt Count 286 Neut % (Auto) 69.7 Lymph % (Auto) 17.1 L [place] % (Auto) 9.4 Eos % (Auto) 2.8 Baso % (Auto) 1.0 Neut # (Auto) 4500 Lymph # (Auto) 1100 [place] # (Auto) 600 Eos # (Auto) 200 Baso # (Auto) 100 PT 27.3 H INR 2.4 H APTT 44 H Sodium 137 Potassium 4.3 Chloride 104 Carbon Dioxide 27 BUN 19 Creatinine 1.04 Estimated GFR > 60 BUN/Creatinine Ratio 18.3 Glucose 108 Calcium 8.2 L Magnesium 2.2 Total Bilirubin 1.2 AST 32 ALT 27 Alkaline Phosphatase 94 Total Creatine Kinase 83 CK-MB (CK-2) TNP CK-MB (CK-2) Rel Index TNP Troponin I < 0.012 NT-Pro-B Natriuret Pep Total Protein 6.9 Albumin 3.9 Globulin 3.0 Albumin/Globulin Ratio 1.3 Lipase 366 H Urine Color Urine Appearance Urine pH Ur Specific [place] Urine Protein Urine Glucose (UA) Urine Ketones Urine Occult Blood Urine Nitrate Urine Bilirubin Urine Urobilinogen Ur Leukocyte Esterase Urine RBC Urine WBC Urine Bacteria Ur Culture Indicated? SARS-CoV-2 (PCR) 06/28/22 06/28/22 06/28/22 19:50 21:00 21:16 WBC RBC Hgb Hct MCV MCH MCHC RDW Plt Count Neut % (Auto) Lymph % (Auto) [place] % (Auto) Eos % (Auto) Baso % (Auto) Neut # (Auto) Lymph # (Auto) [place] # (Auto) Eos # (Auto) Baso # (Auto) PT INR APTT Sodium Potassium Chloride Carbon Dioxide BUN Creatinine Estimated GFR BUN/Creatinine Ratio Glucose Calcium Magnesium Total Bilirubin AST ALT Alkaline Phosphatase Total Creatine Kinase CK-MB (CK-2) CK-MB (CK-2) Rel Index Troponin I NT-Pro-B Natriuret Pep 1850 H Total Protein Albumin Globulin Albumin/Globulin Ratio Lipase Urine Color Yellow Urine Appearance Clear Urine pH 5.5 Ur Specific [place] 1.015 Urine Protein Negative Urine Glucose (UA) Negative Urine Ketones Negative Urine Occult Blood Trace-lysed Urine Nitrate Negative Urine Bilirubin Negative Urine Urobilinogen 0.2 Ur Leukocyte Esterase 1+ H Urine RBC None seen Urine WBC None seen Urine Bacteria None seen Ur Culture Indicated? Specimen cultured SARS-CoV-2 (PCR) Negative Assessment & Plan Assessment & Plan narrative: Nestor Mercedes is an 81-year-old male with a past medical history of TIA/permanent AFib/CHF, mild aortic stenosis, hyperlipidemia, HTN, neuropathy, chronic anticoagulation, who presented to the ED c/o worsening dizziness, ataxia, blurry vision a balance and coordination issues. Admitted for neurological gait instability and vertigo? 1. Neurological Gait instability, with vertigo, with Hx of TIA, acute on chronic, present on admission -my suspicion for acute CVA/TIA is low, but rather suspect disease progression and sequelae from his previous TIA -NIH score 1, neurological checks. -head neck CTA-unremarkable -MR stroke protocol ordered -Ortho stats, BNP -EKG demonstrated atrial fibrillation without acute ischemic changes. Continued to monitor on telemetry. -Echo ordered -Allowed for permissive hypertension x 24 hours. -Continue Coumadin tomorrow morning -Continue atorvastatin -Risk stratified -Consult physical therapy, occupational therapy 2. Permanent atrial fibrillation on chronic anticoagulation, warfarin, present on admission. Stable. -PT/INR ordered -Continued home metoprolol 3. Hypertension, chronic, with mild aortic stenosis, present on admission. Stable. -Allowed for permissive hypertension x 24 hours. -Continued home metoprolol -BNP, Trop 4. Hyperlipidemia, chronic, present on admission. Stable. -Lipids -Continued home atorvastatin 5. BPH, chronic, present on admission. Stable. -Continued finasteride & tamsulosin 6. Under weight is evidence by BMI of 23.5, acute on chronic, present on admission -dietary consult placed for nutritional supplementation counseling Code status:Full Surrogate decision maker: Lobo VIRK PCR:Negative DVT/VTE prophylaxis:Love & scd's Disposition: Patient admitted for observation expected length of stay less than 2 midnights. I have utilized all available immediate resources to obtain, update, or review the patient's current medications. I confirmed that the patient's advanced care plan is present, Code status is documented and/or surrogate decision maker is listed in the patient's medical record. Time Spent With Patient Critical Care time: I spent a total of [] minutes of critical care time on this patient's care today; this time is exclusive of procedural time. Quality VTE Deep Vein Thrombosis/Pulmonary Embolism Present on Admission: No
[2022-06-29 05:38] LABS: Add Manual Diff / Slide Review NO; Basophils Absolute Auto 0 /uL (0-100); Basophils Percent Auto 0.6 % (0-2); Eosinophils Absolute Auto 200 /uL (0-450); Eosinophils Percent Auto 3.3 % (2-4); Hematocrit 37.6 % (41-53); Hemoglobin 12.5 g/dL (13.5-17.5); Lymphocytes Absolute Auto 1200 /uL (1100-4500); Lymphocytes Percent Auto 18.5 % (25-40); Mean Corpuscular HGB Conc 33.3 % (30-36); Mean Corpuscular Hemoglobin 30.1 PG (26-34); Mean Corpuscular Volume 90.3 fL (80-100); Monocytes Absolute Auto 700 /uL (0-900); Monocytes Percent Auto 9.8 % (3-14); Neutrophils Absolute Auto 4500 /uL (1500-7000); Neutrophils Percent Auto 67.8 % (50-75); Platelet Count 241 X10^3/uL (150-400); Red Blood Cell Count 4.17 X10^6/uL (4.5-5.9); Red Cell Distribution Width 14.8 % (11.6-14.8); White Blood Cell Count 6.7 X10^3/uL (4.5-11.0)
[2022-06-29 05:43] LABS: BUN Creatinine Ratio 18.4 (6-22); Blood Urea Nitrogen 18 mg/dL (9-20); Calcium 7.7 mg/dL (8.4-10.2); Carbon Dioxide 26 mmol/L (22-32); Chloride 105 mmol/L (98-107); Cholesterol 98 mg/dL (140-199); Estimated Glomerular Filt Rate > 60 mL/min (>60); Glucose 93 mg/dL (80-110); HDL Cholesterol 33 mg/dL (40-60); HEMOLYSIS < 15 (0-50); LDL Cholesterol Calculated 49 mg/dL (<100); Sodium 136 mmol/L (137-145); Triglycerides 82 mg/dL (35-150)
--- NOTE | 2022-06-29 06:14 | PC.NURSE ---
Admit/NOC Shift Note- Patient arrived to room via wheelchair from ER at 2305. Patient alert and oriented and able to make needs know to staff. No complaints of pain or discomfort. Admit questions done, medications reviewed, physical assessment done, and skin check completed. Patient oriented to bed and bed controls, room, bathroom, lights, menu, phone, and call bergeron/tv remote. Safety measures in place. Patient agrees to call for assistance. Bed alarm activated. Call bergeron and phone within reach. Will continue to monitor.
[2022-06-29 06:16] LABS: Hemoglobin A1C% w Est Avg Glu 5.8 % (4.0-6.0)
--- NOTE | 2022-06-29 09:41 | DI.MRI.S_ITS ---
PROCEDURE: MR HEAD/BRAIN WO CON INDICATIONS: Please evaluate for CVA TECHNIQUE: Non-contrast axial T1 spin echo, axial T2 fast spin echo, sagittal and axial FLAIR, coronal T2 fast spin echo, axial gradient echo, axial diffusion and ADC through the brain. COMPARISON: [facility], CT, CT ANGIO HEAD AND NECK, 06/28/2022, 20:43. [facility], MR, MR STROKE, 07/19/2020, 9:25. FINDINGS: Image quality: This examination is limited by involuntary motion artifact. CSF spaces: Ventricles appear symmetric in size and shape. Basal cisterns are patent. No extra-axial fluid collections. Brain: No intracranial bleeds or mass effects. There is cerebral volume loss for age. There are periventricular and deep white matter chronic small vessel ischemic changes. Brainstem appears normal. Diffusion-weighted images show no acute ischemic insults. No chronic ischemic insults. Normal intravascular flow voids are present. Skull and face: Calvarial bone marrow is normal in signal. Orbits are normal. Note is made of bilateral lens replacements. Sinuses: Focal mucosal thickening is seen involving the anterior left ethmoid air cells. Paranasal sinuses otherwise are relatively clear. No abnormal fluid is seen within the mastoid air cells. IMPRESSION: No findings of acute or subacute infarction can be seen. Note is made of age-appropriate brain parenchymal volume loss and chronic small vessel ischemic changes. Dictated by: Rafal Jackson M.D. on 06/29/2022 at 10:07 Approved by: Rafal Jackson M.D. on 06/29/2022 at 10:08
[2022-06-29] MEDS: METOPROLOL ER 50 MG TABLET 100 MG PO (09:43)
--- NOTE | 2022-06-29 10:37 | CM.DANOTE ---
DCP: Case received, EMR reviewed and met with patient. Introduced self and role. Was able to obtain information regarding patient's baseline activity level at home prior to admission. DCP assessment completed with information currently available. Patient is an 81 year old male who admitted yesterday evening to the care of the hospitalist team. PCP: Dr. Pinto. Payer: confirmed: Medicare/[employer] for [employer]. Patient came to the hospital via private vehicle secondary to having symptoms of dizziness and blurred vision. According to notes, patient had been here in the past few days for similar symptoms. He had no facial droop upon visit. Patient has history of TIA, a-fib, CHF. According to notes, patient has a cane, but chooses not to use it, and has no recent history of falls. Patient is here for TIA work-up, and is scheduled for MRI. Met with patient in his room. He was sitting up in bed, alert and oriented. Confirmed that he resides alone here in [place], his son, Lobo, lives in a cabin below his house. Patient is independent, and drives. He also will be working with P.T. P: DCP to continue to follow. Patient should be able to go home when he is medically cleared. Shanell Palu RN/Certified Personal Finance Counselor Discharge Planning/Care Management CM Discharge Assessment Start: 06/29/22 10:34 Freq: Status: Active Protocol: Document 06/29/22 10:34 (Rec: 06/29/22 10:37 [id number]) Discharge Planning Assessment Advance Directives? Yes: POLST Advance Directives on File No History Provided By Patient,Medical Record Prior Living Arrangements House Household Members none Type of transporation used prior to Drives own vehicle admit Independent with ADL's Yes Is patient alert and oriented? Yes Caregiver for Another No Barriers to Discharge No Discharge Plan Home Transportation Arrangement Son Referrals Initiated None needed Additional Comment Patient does have P.T. orders, will see how he does. Whiteboard Updated in Patient Room with Yes name and ext. # of Cement Conveyor Operator Review Status In Process Next Review Type Continued Stay Review
--- NOTE | 2022-06-29 11:00 | PT.IIE ---
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) Cervical somatic dysfunction Chronic atrial fibrillation (01/02/18) Chronic bilateral low back pain without sciatica Cranial somatic dysfunction Diplopia Elevated random blood glucose level Erectile dysfunction Essential hypertension (02/16/16) Fatigue Foot stiffness History of elevated PSA Incomplete emptying of bladder (02/16/16) Left arm weakness Pelvic somatic dysfunction Physician orders for life-sustaining treatment (POLST) form indicates patient wish for [id number] status Segmental and somatic dysfunction of lumbar region Segmental and somatic dysfunction of rib cage Segmental and somatic dysfunction of sacral region Segmental and somatic dysfunction of thoracic region Somatic dysfunction of both lower extremities Vitamin D deficiency Physical Therapy Inpatient Evaluation/Re-Eval M1 PT/OT-IP Prior Functional Status Start: 06/29/22 12:01 Freq: NEEDED Status: Active Protocol: Document 06/29/22 11:00 AB (Rec: 06/29/22 12:13 AB [id number]) Medical Review Prior Functional Status Medical History Reviewed Yes Communication able to make needs known Mobility and Gait pt stated that he is modified independent with all mobilities and ambulation without AD Social History Household Members none Living Arrangements House Number of Floors (Floors) 3 or More Floors Number of Stairs To Enter/Railing? 2 steps with R rail to enter the house pt stays on main level of the house Home Environment High Toilet,Walk in Shower Home Equipment Front Wheel Walker,Straight Cane,Shower Seat with Backrest ,Hand Held Shower Employment Status Retired Additional Social History Comment pt's son lives next door but goes to work and cannot assist pt M2 PT-IP Current Condition Start: 06/29/22 12:01 Freq: NEEDED Status: Active Protocol: Document 06/29/22 11:00 AB (Rec: 06/29/22 12:13 AB [id number]) Physical Therapy Current Condition Current Condition Evaluation Date 06/29/22 Treatment Diagnosis ataxia; difficulty in walking Onset Date 06/28/22 M3 PT-IP Subjective Start: 06/29/22 12:01 Freq: NEEDED Status: Active Protocol: Document 06/29/22 11:00 AB (Rec: 06/29/22 12:13 AB [email or web address]) Subjective Physical Therapy Visit Type Type Initial Evaluation Visit Start Time 11:00 Visit Stop Time 11:46 Total Visit Minutes 46 Number of CABLE TENDER Visits 0 Physical Therapy Visit Comments Patient Comments agreeable to do PT M4 PT-IP Mobility and Gait Start: 06/29/22 12:01 Freq: NEEDED Status: Active Protocol: Document 06/29/22 11:00 AB (Rec: 06/29/22 12:13 AB [email or web address]) PT-Bed Mobility Assessment Supine to Sit Supine to Sit Independent Sit to Supine Sit to Supine Independent PT-Transfer Assessment Sit to and From Stand Sit to and from Stand Standby Assistance Equipment Transfer Assistive Device Gait Belt,Front Wheeled Walker Orthotic/Prosthetic Devices or Brace: No Transfers Transfer Destination Chair Transfer Technique ambulated Transfer Ability Level of Assist Standby Assistance Comments Mobility Comments BP in supine: 111/64. completed supine to sit independent. able to sit on EOB SBA. BP in sitting 114/64 . no c/o dizziness. completed sit to stand SBA. BP in standing 105/60. pt able to tolerate 2 more minutes of standing without c/o dizziness . BP checked again: 114/51. ambulated in room with FWW SBA ~ 15 ft. Assessed ambulation without AD and completed ~ 20 ft SBA. No LOB. BP after ambulation seated: 116/65. agreed to do steps and completed up/down step stool with R rail ascending SBA. completed 2 sets. pt agreed to sit on the chair and positioned. call light and table placed within reach. Gait Assessment Gait Gait Assistance Required: Standby Assistance Distance (Feet) 20 Able to Maintain Weight Bearing Status Yes During Gait Assistive Devices Assistive Device None,Gait Belt,Front Wheeled Walker Orthotic/Prosthetic Devices or Brace: No Gait Deviations General Gait Pattern Decreased Stride Length, Decreased Feet Clearance Factors Limiting Gait Function Factors Limiting Gait Function Decreased Activity Tolerance, Decreased Strength,Poor Balance Stair Climbing Assessment Evaluation Level of Assist On Stairs Standby Assistance Devices Stair Climbing Assistive Devices Right Railing Technique/Endurance Stair Climbing Direction Ascend and Descend Stair Climbing Technique Step to Step Number of Steps Climbed 1 Query Text: Stair Climbing Set # Repetitions (reps) 2 PT-Balance Assessment Sitting Balance and Reactions Static Sitting Balance Ability Normal Dynamic Sitting Balance Ability Normal Standing Balance and Reactions Static Standing Balance Ability Good Dynamic Standing Balance Ability Good Device Used without AD M5 PT-IP Objective Assessments Start: 06/29/22 12:01 Freq: NEEDED Status: Active Protocol: Document 06/29/22 11:00 AB (Rec: 06/29/22 12:13 AB [id number]) Orientation Orientation/Cognition Level of Alertness Alert Orientation Name,Age,Place,Situation Language Function Ability No Deficits Noted Safety Awareness Understands Safety Issues Memory Description No Deficits Noted Gross Range of Motion Lower Extremity ROM Assessment Within Functional Limits Strength Lower Extremity Strength Assessment Within Functional Limits Coordination Assessment Gross Coordination Gross Coordination WNL Sensation Assessment Sensation Gross Sensation WNL Muscle Tone Muscle Tone WNL Yes M6 PT-IP Treatment Start: 06/29/22 12:01 Freq: NEEDED Status: Active Protocol: Document 06/29/22 11:00 AB (Rec: 06/29/22 12:13 AB [email or web address]) Physical Therapy Treatment Education Education Provided Safety M7 PT-IP Assessment and Plan Start: 06/29/22 12:01 Freq: NEEDED Status: Active Protocol: Document 06/29/22 11:00 AB (Rec: 06/29/22 12:13 AB [email or web address]) PT Summary Assessment and Plan Potential Rehabilitation Potential Fair Status of Condition at Evaluation Stable Summary Impairments Pain,ROM,Strength,Balance, Coordination,Sensation,Tone, Cognition,Bed Mobility, Transfers,Gait,Activity Tolerance Assessment Summary pt requiring SBA with mobility and able to ambulate without AD SBA for safety. pt has no LOB. pt may go home when medically stable. No further PT indicated at this time. Frequency of Treatment Frequency Of Treatment Discharge Recommendations To Nursing Amount of Assist Needed Standby Assistance Discharge Recommendations PT Discharge Recommendations Home Transportation Needs at Discharge Private Vehicle
--- NOTE | 2022-06-29 13:25 | OT.IP.EVAL ---
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) Cervical somatic dysfunction Chronic atrial fibrillation (01/02/18) Chronic bilateral low back pain without sciatica Cranial somatic dysfunction Diplopia Elevated random blood glucose level Erectile dysfunction Essential hypertension (02/16/16) Fatigue Foot stiffness History of elevated PSA Incomplete emptying of bladder (02/16/16) Left arm weakness Pelvic somatic dysfunction Physician orders for life-sustaining treatment (POLST) form indicates patient wish for [id number] status Segmental and somatic dysfunction of lumbar region Segmental and somatic dysfunction of rib cage Segmental and somatic dysfunction of sacral region Segmental and somatic dysfunction of thoracic region Somatic dysfunction of both lower extremities Vitamin D deficiency Surgical History (Last Reviewed 06/29/22 @ 05:38 by JACINTO MorganUSMAN) Hx of cholecystectomy Status post cholecystectomy Occupational Therapy Inpatient Evaluation/Re-Eval M1 PT/OT-IP Prior Functional Status Start: 06/29/22 12:01 Freq: NEEDED Status: Active Protocol: Document 06/29/22 14:15 [facility] (Rec: 06/29/22 14:34 [facility] [id number]) Medical Review Prior Functional Status Medical History Reviewed Yes Communication able to make needs known Mobility and Gait pt stated that he is modified independent with all mobilities and ambulation without AD Activities of Daily Living and IADL's Pt states able to do all his ADL, IADl and drives. Pt states his son assists with the trash and heavy chores. Social History Household Members none Living Arrangements House Number of Floors (Floors) 3 or More Floors Number of Stairs To Enter/Railing? 2 steps with R rail to enter the house pt stays on main level of the house Home Environment High Toilet,Walk in Shower Home Equipment Front Wheel Walker,Straight Cane,Shower Seat with Backrest ,Hand Held Shower Employment Status Retired Additional Social History Comment pt's son lives next door but goes to work and cannot assist pt M2 OT-IP Current Condition Start: 06/29/22 14:14 Freq: Status: Active Protocol: Document 06/29/22 14:15 [facility] (Rec: 06/29/22 14:34 [facility] [id number]) Occupational Therapy Current Condition Current Condition Evaluation Date 06/29/22 Treatment Diagnosis TIA Diagnosis Onset Date 06/28/22 M3 OT- IP Subjective and Pain Start: 06/29/22 14:14 Freq: Status: Active Protocol: Document 06/29/22 14:15 [facility] (Rec: 06/29/22 14:34 [facility] [id number]) OT- Subjective Occupational Therapy Visit Type Type Initial Evaluation Visit Start Time 13:03 Visit Stop Time 13:25 Total Visit Minutes 22 Occupational Therapy Visit Comments Patient Comments Pt agreed to get up to work with OT. Patient/Caregiver Goals TO go home. OT Pain Assessment Pain When Pain Assessed At Rest Pain Present Pain Present Denied Pain M4 OT- IP ADL's Start: 06/29/22 14:14 Freq: Status: Active Protocol: Document 06/29/22 14:15 [facility] (Rec: 06/29/22 14:34 [facility] [id number]) OT [id number] Comments OT Self-Feeding Comments Not at meal time. OT ADL-Grooming General Evaluation Grooming Ability Independent OT ADL-Oral Care General Eval Oral Care Ability Independent OT ADL-Dressing General Eval Lower Body Dressing Ability Independent Comments OT Dressing Comments Pt able to independently neftali/ doff his socks and shoes on his own. OT ADL-Toileting Comments OT Toileting Comments Pt not having to go. OT ADL-Bathing Comments OT Bathing Comments Not performed. Pt states has a shower chair at home that he can use but does not use it normally. M5 OT- IP IADL's Start: 06/29/22 14:14 Freq: Status: Active Protocol: Document 06/29/22 14:15 [facility] (Rec: 06/29/22 14:34 [facility] [id number]) OT-Instrumental Activities of Daily Living Deficits IADL Deficits Identified Deficits Home Safety Awareness Awareness of Need for Assistance at Home Good Awareness Ability to Problem Solve Emergency Able to Problem Solve Situations Home Safety Comments Per pt states feels close to his baseline, but aware to call for assist needed. Driving Driving Concerns Identified Regarding Safety M6 OT- IP Functional Cognition Start: 06/29/22 14:14 Freq: Status: Active Protocol: Document 06/29/22 14:15 [facility] (Rec: 06/29/22 14:34 [facility] [id number]) Cognitive Factors Limiting Selfcare Function Cognitive Ability Level of Alertness Alert Patient Orientation Name,Age,Birthday,Month,Date, Year,Day of Week,Place, Situation Attention Span Ability Capable of Focused Attention, Capable of Sustained Attention Ability to Follow Commands Able to Follow Multi-Step Commands Cognitive Comments Cognitive Assessment Comments Pt appears to be close to his baseline and scored 89 seconds on [place] Making Part B which implies 85% for his age group . His score implies mild impairments for visual attention, speed of processing , task switching, executive functioning, and mental flexibility. If was suggested best for pt to get a ride home versus driving. OT- Vision and Hearing OT- Hearing Assessment OT- Hearing Assessment WFL OT- Vision Assessment Visual Acuity Glasses For Reading Occular Pursuits WFL Visual Convergence WFL Visual [place] WFL Vision Assessment Comments Pt complaining of blurred vision, but not having his glasses on. After having glasses on, pt states vision much clearer but not perfect. M7 OT- IP Mobility and Balance Start: 06/29/22 14:14 Freq: Status: Active Protocol: Document 06/29/22 14:15 [facility] (Rec: 06/29/22 14:34 [facility] [id number]) OT-Transfer Assessment Sit to and From Stand Sit to and from Stand Independent Transfers Transfer Ability Independent,Standby Assistance Technique Transfer Destination Bed,Chair Devices Transfer Assistive Devices Gait Belt Comments Mobility Comments SBA without his shoes and tends to lean to the left and with pt's shoes on-independent in the room on level surfaces . OT- Balance Assessment Sitting Balance and Reactions Static Sitting Balance Ability Normal Dynamic Sitting Balance Ability Good Standing Balance and Reactions Static Standing Balance Ability Good Dynamic Standing Balance Ability Fair M8 OT- IP Objective Assessments Start: 06/29/22 14:14 Freq: Status: Active Protocol: Document 06/29/22 14:15 [facility] (Rec: 06/29/22 14:34 [facility] [id number]) OT Gross Range of Motion Upper Extremity Range of Motion Assessment Within Functional Limits OT- Coordination Assessment Upper Extremity Finger to Nose Test Within Functional Limits Finger Tapping Test Within Functional Limits OT-Muscle Tone Assessment Muscle Tone WNL Yes M9 OT- IP Assessment and Plan Start: 06/29/22 14:14 Freq: Status: Active Protocol: Document 06/29/22 14:15 [facility] (Rec: 06/29/22 14:34 [facility] [id number]) OT Summary Assessment and Plan Potential Rehabilitation Potential Good Analytic Complexity at Evaluation Low Summary OT Impairments Balance,Functional Mobility, Bathing Progress Towards Goals Progressing Toward Goals Assessment Summary Pt low complexity and main barriers are decreased dynamic balance, mild blurred vision especially when his glasses are off. Pt looking to go home when medically stable . Pt son is available to assist him per pt. Suggested pt not drive home due to his inconsistent blurred vision as this time. Pt would benefit from outpt PT as pt feels unsteady on his feet and that in the past that outpt was able to help with his vertigo and balance needs. Goals Dressing Goal Independent Toileting Goal Independent Bathing Goal Independent Toilet Transfer Goal Independent Shower Transfer Goal Independent Days to Meet Goals 1 Frequency of Treatment Frequency Of Treatment Once a Day Treatment Plan OT Treatment Plan ADL Training,Functional Mobility,Patient/Family Education,Discharge Planning Other Treatment Recommendations and Next shower if still here Treatment Focus Discharge Recommendations OT Discharge Recommendations Home with Assistance Transportation Needs at Discharge Private Vehicle
--- NOTE | 2022-06-29 13:49 | PM.DS.1 ---
History of Present Illness History of Present Illness Date Patient Seen: 06/29/22 Chief complaint: dizzy, double vision episode Narrative: Per Mary Alice Marcano, [facility]-: Nestor Mercedes is a 81 yr old male with a history of TIA/permanent AFib/CHF, mild aortic stenosis, hyperlipidemia, HTN, neuropathy, chronic anticoagulation, who presented to the ED c/o worsening dizziness, ataxia, blurry vision a balance and coordination issues. Patient was seen by his PCP on 06/24/2002 for this issue, and was seen in the ED on 06/25/2022. In ED the patient noted that the past few days the dizziness blurry vision and ataxia has returned and worsened.? Patient states he favors walking to the left.? No foot drop.? No facial droop slurred speech weakness on 1 side of the body. No chest pain, palpitations, shortness of breath, cough, upper respiratory symptoms, headache, difficulty swallowing, no recent illness injury or trauma, no recent head injury, abdominal pain, nausea, vomiting, diarrhea fever, body aches, or chills. 06/25/[address] Mark:ED- 81-year-old gentleman presents with nonspecific and what sounds like fairly chronic complaints.? He notes that he has some mild ataxia that makes a point of walking at least 30 minutes a day.? He has a cane available but chooses not to use it and has not suffered any falls recently.? He is concerned that earlier today he may have been a bit more unsteady but seems to be much better this evening.? He is not complaining of signs and symptoms of stroke.? No evidence of acute infection, rapid atrial fibrillation, acute coronary syndrome, electrolyte abnormalities.? He is wondering his depth perception difficulty with the different prescriptions in his cataract lens replacements might be contributing to this.? At this point landing he is mostly looking for reassurance which I am able to give.? Questions are answered.? He will follow-up with his eye doctor and he is safe for home discharge 06/24/2022 per longely PCP: 81-year-old male with chronic balance and equilibrium issues, frequent lightheadedness, aortic stenosis presents with concern for lightheadedness that is more persistent than usual today, and ongoing issues with vision change, blurred vision that occur when he stands up.? Patient's neurologic exam today was unremarkable except for his gait which is at baseline per patient.? Low suspicion for acute CVA however did intellectual property counsel the patient that if he has new or worsening symptoms including difficulty with coordination or one-sided weakness, speech changes or increasing difficulty with walking he should report to the emergency department immediately.? Do suspect that patient's aortic valve is responsible for some of his symptoms as well as probably some mild to moderate dehydration.? He is encouraged to hydrate with fluids of water and electrolyte replacement as well, moves slowly particularly when he is transitioning from sitting to standing and monitor his symptoms carefully.? Discussed possibly trying meclizine however do not feel that this is most appropriate for this patient and his symptoms are more likely explained by dehydration and his valve stenosis.? Did encourage him to contact his collar cutter and see if he can get in to be seen sooner as his next appointment is not for few months.? Also encouraged the patient to check in with his son gisele and in the morning to see how he is doing and discuss follow-up.? Return precautions provided, follow-up plan discussed, all questions answered. Patient's vitals upon admit temp 98.2?, BP 157/76, HR 83, RR 14, O2 saturation 100% on room air, at the time of admit exam patient is resting comfortably on the ED gurney in no distress no discomfort, stable. Patient's CBC CMP and liver panel are all unremarkable, UA is negative, NIH of 1 suspect that this is baseline for the patient. Lipase 366, head neck CTA is unremarkable, patient's EKG AFib with a rate of [address] or T-wave changes. Chest Xray likely chronic parenchymal changes in bilateral lower lung tang and pleural thickening.? No definite focal infiltrate.? No pleural effusion or pneumothorax. Echo 10/2021 EF of 55-60%. Patient admitted for neurological gait instability/vertigo. ? Discharge Providers Provider Date of admission: 06/28/22 23:04 Discharge Date: 06/29/22 Primary care physician: Oleksandr Pinto DO Consults: 06/28/22 23:35 Consult to Physical Therapy Evaluate & Treat Comment: TIA gait unstable/Vertigo Physician Instructions: Evaluate and Treat 06/28/22 23:36 Consult to Occupational Therapy Evaluate & Treat Comment: TIA unstable gait Physician Instructions: Evaluate and treat 06/28/22 23:41 Consult to Dietitian, Adult Routine Comment: Reason For Exam: BMI 23.5 Discharge provider: Moiz Nagel DO Summary Hospital Course Discharge Diagnosis: 1. Gait instability, with vertigo, with Hx of TIA, chronic,? present on admission 2. Permanent atrial fibrillation on chronic anticoagulation, warfarin, present on admission. Stable. 3. Hypertension, chronic, with mild aortic stenosis, present on admission. Stable. 4. Hyperlipidemia, chronic, present on admission. Stable. 5. BPH, chronic, present on admission. Stable. 6. Under weight is evidence by BMI of 23.5, acute on chronic, present on admission Hospital Course: Nestor Mercedes is an 81-year-old male with a past medical history of TIA/permanent AFib/CHF, mild aortic stenosis, hyperlipidemia, HTN, neuropathy, chronic anticoagulation, who presented to the ED c/o worsening dizziness, ataxia, blurry vision a balance and coordination issues. He was admitted for further evaluation. MRI was negative for stroke, and the following day he did well with physical therapy who recommended patient could discharge home. Given symptoms of dizziness with standing, patient was recommended to cut his morning dose of metoprolol in half, and if that is ineffective return to his usual dose. At that time I would then recommend stopping his morning dose of tamsulosin to see if there is improvement. Recommend continued follow up with PCP. Exam Vital Signs (past 8 hours): - 06/29/22 07:00 06/29/22 07:00 06/29/22 09:43 Temperature 96.9 F L Pulse Rate 71 79 Pulse Rate [Orthostatic Lying] 71 Pulse Rate [Orthostatic Sitting] 84 Pulse Rate [Orthostatic Standing] 85 Respiratory Rate 16 Blood Pressure 116/68 112/67 Blood Pressure [Orthostatic Lying] 116/68 Blood Pressure [Orthostatic Sitting] 113/66 Blood Pressure [Orthostatic Standing] 118/64 Pulse Oximetry 97 Oxygen Delivery Method Oxygen Flow Rate 0 06/29/22 10:07 06/29/22 09:43 06/29/22 09:43 Temperature Pulse Rate Pulse Rate [Orthostatic Lying] Pulse Rate [Orthostatic Sitting] Pulse Rate [Orthostatic Standing] Respiratory Rate Blood Pressure 117/65 Blood Pressure [Orthostatic Lying] Blood Pressure [Orthostatic Sitting] Blood Pressure [Orthostatic Standing] Pulse Oximetry 97 Oxygen Delivery Method Room Air Room Air Oxygen Flow Rate 06/29/22 11:47 06/29/22 11:00 06/29/22 12:00 Temperature 96.8 F L Pulse Rate 65 69 Pulse Rate [Orthostatic Lying] Pulse Rate [Orthostatic Sitting] Pulse Rate [Orthostatic Standing] Respiratory Rate 17 Blood Pressure 116/65 111/64 Blood Pressure [Orthostatic Lying] 111/64 Blood Pressure [Orthostatic Sitting] 114/64 Blood Pressure [Orthostatic Standing] 114/51 L Pulse Oximetry Oxygen Delivery Method Oxygen Flow Rate Oxygen Delivery Method Room Air Oxygen Flow Rate 0 Narrative Exam Narrative: General: Healthy appearing, in no acute distress.? WDWN HEENT:? Moist mucous membranes, normal sclera with reactive pupils, Neck:? No JVD, supple Respiratory:? Lungs are clear to auscultation, no wheezing no rales no rhonchi.? Full and symmetrical air movement Cardiac:? Irregularly irregular with 2/6 systolic murmur Abdomen:? Soft, nontender, nondistended Skin:? Warm and dry, no rashes Neurologic:? equal and +5/5 strength in all extremities, sensation to light touch intact upper and lower extremities bilaterally. Extremities:? No trauma, well perfused Psych:? Cooperative, appropriate insight and affect Objective Labs Result Diagrams: 06/29/22 05:16 06/29/22 05:16 Labs: Laboratory Results - last 24 hr 06/28/22 06/28/22 06/28/22 19:50 19:50 19:50 WBC 6.5 RBC 4.59 Hgb 14.0 Hct 41.7 MCV 90.8 MCH 30.5 MCHC 33.6 RDW 14.5 Plt Count 286 Neut % (Auto) 69.7 Lymph % (Auto) 17.1 L [place] % (Auto) 9.4 Eos % (Auto) 2.8 Baso % (Auto) 1.0 Neut # (Auto) 4500 Lymph # (Auto) 1100 [place] # (Auto) 600 Eos # (Auto) 200 Baso # (Auto) 100 PT 27.3 H INR 2.4 H APTT 44 H Sodium 137 Potassium 4.3 Chloride 104 Carbon Dioxide 27 BUN 19 Creatinine 1.04 Estimated GFR > 60 BUN/Creatinine Ratio 18.3 Glucose 108 Hemoglobin A1c Calcium 8.2 L Magnesium 2.2 Total Bilirubin 1.2 AST 32 ALT 27 Alkaline Phosphatase 94 Total Creatine Kinase 83 CK-MB (CK-2) TNP CK-MB (CK-2) Rel Index TNP Troponin I < 0.012 NT-Pro-B Natriuret Pep Total Protein 6.9 Albumin 3.9 Globulin 3.0 Albumin/Globulin Ratio 1.3 Triglycerides Cholesterol LDL Cholesterol, Calc HDL Cholesterol Lipase 366 H Urine Color Urine Appearance Urine pH Ur Specific [place] Urine Protein Urine Glucose (UA) Urine Ketones Urine Occult Blood Urine Nitrate Urine Bilirubin Urine Urobilinogen Ur Leukocyte Esterase Urine RBC Urine WBC Urine Bacteria Ur Culture Indicated? SARS-CoV-2 (PCR) 06/28/22 06/28/22 06/28/22 19:50 21:00 21:16 WBC RBC Hgb Hct MCV MCH MCHC RDW Plt Count Neut % (Auto) Lymph % (Auto) [place] % (Auto) Eos % (Auto) Baso % (Auto) Neut # (Auto) Lymph # (Auto) [place] # (Auto) Eos # (Auto) Baso # (Auto) PT INR APTT Sodium Potassium Chloride Carbon Dioxide BUN Creatinine Estimated GFR BUN/Creatinine Ratio Glucose Hemoglobin A1c Calcium Magnesium Total Bilirubin AST ALT Alkaline Phosphatase Total Creatine Kinase CK-MB (CK-2) CK-MB (CK-2) Rel Index Troponin I NT-Pro-B Natriuret Pep 1850 H Total Protein Albumin Globulin Albumin/Globulin Ratio Triglycerides Cholesterol LDL Cholesterol, Calc HDL Cholesterol Lipase Urine Color Yellow Urine Appearance Clear Urine pH 5.5 Ur Specific [place] 1.015 Urine Protein Negative Urine Glucose (UA) Negative Urine Ketones Negative Urine Occult Blood Trace-lysed Urine Nitrate Negative Urine Bilirubin Negative Urine Urobilinogen 0.2 Ur Leukocyte Esterase 1+ H Urine RBC None seen Urine WBC None seen Urine Bacteria None seen Ur Culture Indicated? Specimen cultured SARS-CoV-2 (PCR) Negative 06/29/22 06/29/22 06/29/22 05:16 05:16 05:16 WBC 6.7 RBC 4.17 L Hgb 12.5 L Hct 37.6 L MCV 90.3 MCH 30.1 MCHC 33.3 RDW 14.8 Plt Count 241 Neut % (Auto) 67.8 Lymph % (Auto) 18.5 L [place] % (Auto) 9.8 Eos % (Auto) 3.3 Baso % (Auto) 0.6 Neut # (Auto) 4500 Lymph # (Auto) 1200 [place] # (Auto) 700 Eos # (Auto) 200 Baso # (Auto) 0 PT INR APTT Sodium 136 L Potassium 4.0 Chloride 105 Carbon Dioxide 26 BUN 18 Creatinine 0.98 Estimated GFR > 60 BUN/Creatinine Ratio 18.4 Glucose 93 Hemoglobin A1c 5.8 Calcium 7.7 L Magnesium Total Bilirubin AST ALT Alkaline Phosphatase Total Creatine Kinase CK-MB (CK-2) CK-MB (CK-2) Rel Index Troponin I NT-Pro-B Natriuret Pep Total Protein Albumin Globulin Albumin/Globulin Ratio Triglycerides 82 Cholesterol 98 L LDL Cholesterol, Calc 49 HDL Cholesterol 33 L Lipase Urine Color Urine Appearance Urine pH Ur Specific [place] Urine Protein Urine Glucose (UA) Urine Ketones Urine Occult Blood Urine Nitrate Urine Bilirubin Urine Urobilinogen Ur Leukocyte Esterase Urine RBC Urine WBC Urine Bacteria Ur Culture Indicated? SARS-CoV-2 (PCR) [facility] Medical History Anticoagulated on warfarin Aortic stenosis, severe Balance problem 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) Cervical somatic dysfunction Chronic atrial fibrillation (01/02/18) Chronic bilateral low back pain without sciatica Cranial somatic dysfunction Diplopia Elevated random blood glucose level Erectile dysfunction Essential hypertension (02/16/16) Fatigue Foot stiffness History of elevated PSA Incomplete emptying of bladder (02/16/16) Left arm weakness Pelvic somatic dysfunction Physician orders for life-sustaining treatment (POLST) form indicates patient wish for [id number] status Segmental and somatic dysfunction of lumbar region Segmental and somatic dysfunction of rib cage Segmental and somatic dysfunction of sacral region Segmental and somatic dysfunction of thoracic region Somatic dysfunction of both lower extremities Vitamin D deficiency Surgical History Hx of cholecystectomy Status post cholecystectomy Family History Mother CVA (cerebral vascular accident) Father Diabetes mellitus Brother Renal failure Social History marital status: number of children: 1 household members: none occupational status: previously employed Previous occupational history: [employer] Smoking Status: Former smoker alcohol intake: former caffeine: Yes Discharge Plan Discharge Plan Patient Disposition: Home Provider Discharge Comment: You were admitted to the hospital with some difficulty with balance. MRI was negative for any stroke and you did well with physical therapy. I recommend cutting your morning metoprolol in half. If you feel worse with this or see no difference, you can resume your regular dose and I would try stopping your tamsulosin in the morning to see if there is any difference. Please follow up with Dr. Pinto as previously scheduled. Discharge orders & Medications Prescriptions: Continued multivitamin [Multiple Vitamins] 1 EACH tablet 1 tab PO DAILY Qty: 0 cholecalciferol (vitamin D3) [Vitamin D3] 2,000 UNIT tablet 2,000 unit PO DAILY Qty: 0 finasteride 5 mg tablet 5 mg PO Q OTHER DAY Qty: 90 3RF tamsulosin 0.4 mg capsule 0.8 mg PO BEDTIME Qty: 180 3RF Rx Instructions: 30 minutes following the same meal each day warfarin 5 mg tablet See Rx Instructions .ROUTE .COMPLEX Dose Instruction: Take 1/2 tablet daily except on and Sat take 1 or as directed by doctor ; Rx Instructions: Take 5mg Monday and Monday and 2.5mg all other days, or as directed. Iron High Potency 27 mg tablet 27 mg PO DAILY Label Comments: Iron High Potency 240mg (27mg iron) Ocuvite 30unit 5mg 150mg 1 cap PO DAILY metoprolol succinate [Toprol XL] 25 mg tablet extended release 24 hr 25 mg PO BEDTIME atorvastatin 40 mg tablet 40 mg PO BEDTIME Changed metoprolol succinate 100 MG tablet extended release 24 hr 50 mg PO QAM Qty: 60 0RF Follow up/Referrals: Oleksandr Pinto DO [Primary Care Provider] - Diet/Activity/Treatments Diet: Diet as Tolerated Activity: As tolerated Discharge Data Primary Care Provider: Oleksandr Pinto Attending Provider: Mary Alice Marcano VTE Deep Vein Thrombosis/Pulmonary Embolism Present on Admission: No
--- NOTE | 2022-06-29 15:27 | PC.NURSE ---
provider okayed patient to drive home. BP 110/67 standing up. dc instructions provided and paper work.
== END 2022-06-29 15:30 | disposition home or self-care (01) ==
LOC: ED 22:39 → AC 06-29 07:55
PROVIDERS: Admitting Provider Nurse Practitioner Family; Emergency Provider Emergency Medicine; Family Provider Family Medicine; PCP Family Medicine; Referring Provider Emergency Medicine; Visit Provider Nurse Practitioner Family
DX: R42 Dizziness and giddiness (principal); R29.701 NIHSS score 1; I48.21 Permanent atrial fibrillation; I50.9 Heart failure, unspecified; I11.0 Hypertensive heart disease with heart failure; E78.5 Hyperlipidemia, unspecified; G62.9 Polyneuropathy, unspecified; H53.8 Other visual disturbances; Z86.73 Personal history of transient ischemic attack (TIA), and cerebral infarction without residual deficits; Z79.01 Long term (current) use of anticoagulants; Z20.822 Contact with and (suspected) exposure to COVID-19
CPT/HCPCS: 36415; 70496; 70498; 70551; 71045; 80048; 80053; 80061; 81001; 82550; 83036; 83690; 83735; 83880; 84484; 85025; 85610; 85730; 87086; 87635; 93005; 93010; 97161; 97165; 99285; C9803; G0378; Q9967

== ENCOUNTER 2022-07-02 10:59 | Emergency (ER) | payer MEDICARE, OTHER, SELFPAY ==
[2022-06-28 23:06] VITALS: BMI 23.5
[2022-07-02] VITALS (14 sets, daily range): BP systolic 145–199; BP diastolic 79–98; PULSE 74–115; RESP 15–25; O2SAT 92–99; BMI 23.5
--- NOTE | 2022-07-02 11:38 | ED_ITS ---
HPI - Dizziness General Chief Complaint: Dizziness Stated Complaint: Light headed, double vision x 3 days Time Seen by Provider: 07/02/22 11:38 Source: patient Mode of arrival: Ambulatory History of Present Illness HPI Narrative: 81-year-old male former smoker with medical history consisting of atrial fibrillation on warfarin, CHF, hypertension and hyperlipidemia presents again for ongoing dizziness and lightheadedness with some blurred vision for at least the past few days. Use most recently seen here on June 28 and had a very t horough evaluation which resulted in admission, and evaluations by Physical therapy, Occupational therapy. There were some subtle medication changes and he was discharged home. He states his symptoms have never gone away and in fact he is had multiple visits for the same. He denies any fever chills nor neck pain. He denies any lower extremity weakness. Related Data Home Medications Medication Instructions Recorded Confirmed multivitamin (Multiple Vitamins 1 tab PO DAILY ##0 03/06/13 06/29/22 tablet) cholecalciferol (vitamin D3) 50 2,000 unit PO DAILY #0 tabs 08/03/16 06/29/22 mcg (2,000 unit) tablet (Vitamin D3) Iron High Potency 27 mg PO DAILY 04/09/19 06/29/22 Ocuvite 30unit 5mg 150mg 1 cap PO DAILY 04/09/19 06/29/22 metoprolol succinate 25 mg 25 mg PO BEDTIME 07/18/20 06/29/22 tablet,extended release 24 hr (Toprol XL) atorvastatin 40 mg tablet 40 mg PO BEDTIME 11/19/20 06/29/22 warfarin 5 mg tablet See Rx Instructions .Route .COMPLEX 02/28/22 06/29/22 Previous Rx's Medication Instructions Recorded finasteride 5 mg tablet 5 mg PO Q OTHER DAY #90 tabs 11/17/21 tamsulosin 0.4 mg capsule 0.8 mg PO BEDTIME #180 caps 11/17/21 metoprolol succinate 100 mg 50 mg PO QAM #60 tabs 06/29/22 tablet,extended release 24 hr Allergies Allergy/AdvReac Type Severity Reaction Status Date / Time No Known Drug Allergies Allergy Verified 07/02/22 11:22 Review of Systems Review of Systems Narrative: GENERAL: See HPI HEENT: Denies sinus pain, ear pain, sore throat, difficulty swallowing, dizziness. RESPIRATORY: Denies dyspnea, cough, wheezing, hemoptysis, sputum. CARDIOVASCULAR: Denies chest pain, palpitations, orthopnea, edema, GASTROINTESTINAL: Denies nausea, vomiting, abdominal pain, diarrhea, constipation, melena. : Denies dysuria, frequency, incontinence, hematuria, urinary retention. MUSCULOSKELETAL: denies weakness, joint pain, or bony pain SKIN: Denies rash, skin lesions, or other NEUROLOGIC: See HPI PSYCHIATRIC: No concerning psychosocial issues. 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) Cervical somatic dysfunction Chronic atrial fibrillation (01/02/18) Chronic bilateral low back pain without sciatica Cranial somatic dysfunction Diplopia Elevated random blood glucose level Erectile dysfunction Essential hypertension (02/16/16) Fatigue Foot stiffness History of elevated PSA Incomplete emptying of bladder (02/16/16) Left arm weakness Pelvic somatic dysfunction Physician orders for life-sustaining treatment (POLST) form indicates patient wish for [id number] status Segmental and somatic dysfunction of lumbar region Segmental and somatic dysfunction of rib cage Segmental and somatic dysfunction of sacral region Segmental and somatic dysfunction of thoracic region Somatic dysfunction of both lower extremities Vitamin D deficiency Surgical History Hx of cholecystectomy Status post cholecystectomy Family History Mother CVA (cerebral vascular accident) Father Diabetes mellitus Brother Renal failure Social History marital status: number of children: 1 household members: none occupational status: previously employed Previous occupational history: [employer] Smoking Status: Former smoker alcohol intake: former caffeine: Yes Smoking Status: Former smoker alcohol intake frequency: holidays/special occasions only Substance Use Type: does not use Exam Narrative Exam Narrative: GENERAL: [81] year old patient appears stated age. Well-developed patient, in mild distress. GCS 15 HEAD: Atraumatic. Normocephalic. EYES: Pupils equal round and reactive. Extraocular motions intact. No scleral icterus. No injection or drainage. ENT: Nose without bleeding, purulent drainage. Throat without erythema, tonsillar hypertrophy or exudate. Airway patent. NECK: Trachea midline. Non tender CARDIOVASCULAR: Regular rate and rhythm without murmurs, gallops, or rubs. RESPIRATORY: Clear to auscultation. Breath sounds equal bilaterally. No wheezes, rales, or rhonchi. GASTROINTESTINAL: Abdomen soft, non-tender, nondistended. EXTREMITIES: No edema or joint tenderness. BACK: Nontender without deformity or crepitance. No flank tenderness. NEURO: AOx3. SKIN: No rash or erythema of visible areas NIH Stroke Scale 1a. LOC: Patient is alert and keenly responsive (0) 1b. LOC Questions: Patient answers both LOC questions accurately (0) 1c. LOC Commands: Patient performs both tasks correctly (0) 2. Best Gaze: Normal (0) 3. Visual: No visual loss (0) 4. Facial palsy: Normal symmetrical movements (0) 5. Motor arm: No drift (0) 6. Motor leg: No drift (0) 7. Limb ataxia: Absent (0) 8. Sensory: Normal (0) 9. Best language: No aphasia; normal (0) 10. Dysarthria: Normal (0) 11. Extinction and inattention: No abnormality (0) NIHSS: 0 Initial Vital Signs Initial Vital Signs: Vital Signs Pulse Rate 83 07/02/22 11:22 Respiratory Rate 15 07/02/22 11:22 Blood Pressure 180/85 H 07/02/22 11:22 Pulse Oximetry 97 07/02/22 11:22 Oxygen Delivery Method 07/02/22 11:22 Course Course Course Narrative: patient has a very reassuring history and physical exam. His symptoms have been present for quite some time and he recent had a significant work up including hospitalization, MRI, PT, OT. There are no new or worsening symptoms. NO indication for hospitalization or transfer. Orders Ordered: Discontinued Medications Sodium Chloride (Normal Saline 0.9%) 1,000 mls @ 150 mls/hr IV CONT REN Last Infusion: 07/02/22 15:23 Dose: 0 mls/hr Documented By: Admin: 07/02/22 12:06 Dose: 150 mls/hr Documented By: SALAS Vital Signs Vital signs: Vital Signs - 8 hr 07/02/22 11:22 07/02/22 11:38 07/02/22 11:38 Pulse Rate 83 115 H Respiratory Rate 15 Blood Pressure 180/85 H 178/85 H Pulse Oximetry 97 92 Oxygen Delivery Method Room Air 07/02/22 12:00 07/02/22 12:00 07/02/22 12:25 Pulse Rate 83 Respiratory Rate 19 Blood Pressure 155/88 H 162/98 H Pulse Oximetry 97 Oxygen Delivery Method 07/02/22 12:25 07/02/22 12:34 07/02/22 12:35 Pulse Rate 96 H 82 Respiratory Rate 20 Blood Pressure 190/85 H Pulse Oximetry 96 96 Oxygen Delivery Method 07/02/22 12:35 Pulse Rate 78 Respiratory Rate 25 H Blood Pressure Pulse Oximetry 96 Oxygen Delivery Method MDM - Dizziness Lab Data Result diagrams: 07/02/22 12:25 07/02/22 12:25 Labs: Lab Results 07/02/22 07/02/22 Range/Units 12:25 12:25 WBC 6.9 (4.5-11.0) X10^3/uL RBC 4.75 (4.5-5.9) X10^6/uL Hgb 14.5 (13.5-17.5) g/dL Hct 42.8 (41-53) % MCV 90.3 (80-100) fL MCH 30.6 (26-34) PG MCHC 33.8 (30-36) % RDW 14.5 (11.6-14.8) % Plt Count 258 (150-400) X10^3/uL Neut % (Auto) 69.9 (50-75) % Lymph % (Auto) 15.6 L (25-40) % Bent % (Auto) 11.7 (3-14) % Eos % (Auto) 2.1 (2-4) % Baso % (Auto) 0.7 (0-2) % Neut # (Auto) 4800 (8989-0541) /uL Lymph # (Auto) 1100 (3899-0829) /uL Bent # (Auto) 800 (0-900) /uL Eos # (Auto) 100 (0-450) /uL Baso # (Auto) 0 (0-100) /uL Sodium 139 (137-145) mmol/L Potassium 4.1 (3.4-5.1) mmol/L Chloride 105 (98-107) mmol/L Carbon Dioxide 26 (22-32) mmol/L BUN 16 (9-20) mg/dL Creatinine 1.00 (0.66-1.25) mg/dL Estimated GFR > 60 (>60) mL/min BUN/Creatinine Ratio 16.0 (6-22) Glucose 93 (80-110) mg/dL Calcium 8.2 L (8.4-10.2) mg/dL Total Bilirubin 1.6 H (0.2-1.3) mg/dL AST 28 (17-59) IU/L ALT 30 (<50) IU/L Alkaline Phosphatase 95 (38-126) U/L Total Creatine Kinase 55 (55-170) U/L CK-MB (CK-2) TNP CK-MB (CK-2) Rel Index TNP Troponin I < 0.012 (0.01-0.034) ng/mL Total Protein 7.1 (6.3-8.2) g/dL Albumin 4.0 (3.5-5.0) g/dL Globulin 3.1 (1.7-4.1) g/dL Albumin/Globulin Ratio 1.3 (1.0-2.8) Discharge Plan Departure Patient Disposition: Home Clinical Impression: Dizzinesses, Blurred vision Instructions: DI for Dizziness-Nonvertigo Activity Restrictions/Additional Instructions: *You have been diagnosed with [chronic dizziness and blurred vision. Thankfully, your history, exam, labs and imaging are very reassuring ] *What to do: *Please continue to take your regular medications as directed. [ ] New medication prescriptions sent to your pharmacy: [ ] [ ] New medication written as a paper prescription [x ] No new medications given *Please follow up with your primary care provider in 2-3 days, call for an appointment. Let them know you were seen in the Emergency Department and that we ask that you be seen in follow up. We will electronically transmit a record of today's note if your PCP is in our system *If you do not have a primary care provider please contact the [facility] Resource line at [phone]. They will ask some questions about your medical history and help get you set up with a doctor in the community. *Return to Emergency Department if you should have any new, worsening or concerning symptoms, such as [fever greater than 101 F, shaking chills, worsening pain, persistent vomiting or other bothersome symptoms] Prescriptions: No Action multivitamin [Multiple Vitamins] 1 EACH tablet 1 tab PO DAILY Qty: 0 cholecalciferol (vitamin D3) [Vitamin D3] 2,000 UNIT tablet 2,000 unit PO DAILY Qty: 0 finasteride 5 mg tablet 5 mg PO Q OTHER DAY Qty: 90 3RF tamsulosin 0.4 mg capsule 0.8 mg PO BEDTIME Qty: 180 3RF Rx Instructions: 30 minutes following the same meal each day warfarin 5 mg tablet See Rx Instructions .ROUTE .COMPLEX Dose Instruction: Take 1/2 tablet daily except on and Sat take 1 or as directed by doctor ; Rx Instructions: Take 5mg Monday and Monday and 2.5mg all other days, or as directed. Iron High Potency 27 mg tablet 27 mg PO DAILY Label Comments: Iron High Potency 240mg (27mg iron) Ocuvite 30unit 5mg 150mg 1 cap PO DAILY metoprolol succinate 100 MG tablet extended release 24 hr 50 mg PO QAM Qty: 60 0RF metoprolol succinate [Toprol XL] 25 mg tablet extended release 24 hr 25 mg PO BEDTIME atorvastatin 40 mg tablet 40 mg PO BEDTIME Referrals: Oleksandr Pitno DO [Primary Care Provider] - Visit Report Forms: Patient Portal/API
--- NOTE | 2022-07-02 11:55 | DI.CT.S_ITS ---
PROCEDURE: CT HEAD/BRAIN WO CON INDICATIONS: dizzy and weak TECHNIQUE: Noncontrast 4.5 mm thick angled axial sections acquired from the foramen magnum to the vertex, with coronal and sagittal reformats. For radiation dose reduction, the following was used: automated exposure control, adjustment of mA and/or kV according to patient size. COMPARISON: [facility], CT, CT HEAD/BRAIN WO CON, 06/25/2022, 21:51. FINDINGS: Image quality: Excellent. CSF spaces: Basal cisterns are patent. No extra-axial fluid collections. Ventricles are normal in size and shape. Brain: No midline shift. No intracranial masses or hemorrhage. Duenas-white matter interface is normal. Moderate cerebral and cerebellar volume loss with multifocal white matter chronic ischemic change noted. Atherosclerotic calcification noted associated with cavernous segments of both internal carotid arteries. Skull and face: Calvarium and visualized facial bones are intact, without suspicious lesions. Sinuses: Mucosal thickening and debris in the sphenoid sinus associated with osseous wall thickening. Debris in the anterior left ethmoid sinus is present as well IMPRESSION: 1. 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 Atrophy and chronic ischemic change stable from the prior Approved by: Popeye Morris M.D. on 07/02/2022 at 11:47
--- NOTE | 2022-07-02 11:55 | DI.RAD.S_ITS ---
PROCEDURE: XR CHEST 1V INDICATIONS: dizzy and weak TECHNIQUE: One view of the chest was acquired. COMPARISON: [facility], CR, XR CHEST 1V, 06/28/2022, 20:05. [facility], CR, XR CHEST 1V, 10/24/2021, 10:41. FINDINGS: Surgical changes and devices: None. Lungs and pleura: Unchanged opacities in the mid and lower lungs. There might be increased consolidation at the right lung base. Mediastinum: Unchanged. Heart is normal size. Bones and chest wall: No suspicious bony lesions. Overlying soft tissues appear unremarkable. IMPRESSION: Unchanged mild opacities in the mid and lower lungs, possibly representing chronic interstitial changes and scarring. Suspected increased consolidation at the right lung base, which may be infectious or inflammatory, versus atelectasis. Consider imaging surveillance to monitor for resolution/stability. Dictated by: Derrell Angelo M.D. on 07/02/2022 at 17:29 Approved by: Derrell Angelo M.D. on 07/02/2022 at 17:31
[2022-07-02] MEDS: SODIUM CHLORIDE 0.9% 1,000 ML 150 ML IV (12:06)
[2022-07-02 12:36] LABS: Add Manual Diff / Slide Review NO; Basophils Absolute Auto 0 /uL (0-100); Basophils Percent Auto 0.7 % (0-2); Eosinophils Absolute Auto 100 /uL (0-450); Eosinophils Percent Auto 2.1 % (2-4); Hematocrit 42.8 % (41-53); Hemoglobin 14.5 g/dL (13.5-17.5); Lymphocytes Absolute Auto 1100 /uL (1100-4500); Lymphocytes Percent Auto 15.6 % (25-40); Mean Corpuscular HGB Conc 33.8 % (30-36); Mean Corpuscular Hemoglobin 30.6 PG (26-34); Mean Corpuscular Volume 90.3 fL (80-100); Monocytes Absolute Auto 800 /uL (0-900); Monocytes Percent Auto 11.7 % (3-14); Neutrophils Absolute Auto 4800 /uL (1500-7000); Neutrophils Percent Auto 69.9 % (50-75); Platelet Count 258 X10^3/uL (150-400); Red Blood Cell Count 4.75 X10^6/uL (4.5-5.9); Red Cell Distribution Width 14.5 % (11.6-14.8); White Blood Cell Count 6.9 X10^3/uL (4.5-11.0)
[2022-07-02 12:47] LABS: Alanine Aminotransferase 30 IU/L (<50); Albumin Globulin Ratio 1.3 (1.0-2.8); Alkaline Phosphatase 95 U/L (38-126); Aspartate Aminotransferase 28 IU/L (17-59); Bilirubin Total 1.6 mg/dL (0.2-1.3); Blood Urea Nitrogen 16 mg/dL (9-20); Calcium 8.2 mg/dL (8.4-10.2); Carbon Dioxide 26 mmol/L (22-32); Chloride 105 mmol/L (98-107); Creatine Kinase 55 U/L (55-170); Estimated Glomerular Filt Rate > 60 mL/min (>60); Globulin 3.1 g/dL (1.7-4.1); Glucose 93 mg/dL (80-110); HEMOLYSIS < 15 (0-50); Potassium 4.1 mmol/L (3.4-5.1); Sodium 139 mmol/L (137-145); Total Protein 7.1 g/dL (6.3-8.2)
[2022-07-02 12:59] LABS: Troponin I < 0.012 ng/mL (0.01-0.034)
--- NOTE | 2022-07-02 13:38 | PC.NURSE ---
called and reached patient [phone] pt reports he removed his iv and is picking his rx up; pt states he left here and removed his iv because the doctor was wrong i was not impaired so i just went ahead and left pt prior to procedure instructed to have ride home and no driving x 24 hours. pt drove himself home without waiting on rn to update vitals, remove iv, give dc papers or dc instructions. did instruct patient he needed ride and he should have let staff know he was leaving and driving against release by .
== END 2022-07-02 15:56 | disposition home or self-care (01) ==
PROVIDERS: Emergency Provider Emergency Medicine; Family Provider Family Medicine; PCP Family Medicine
DX: R42 Dizziness and giddiness (principal); H53.8 Other visual disturbances
CPT/HCPCS: 70450; 71045; 80053; 82550; 84484; 85025; 93005; 93010; 96360; 96361; 99284; 99285

== ENCOUNTER → 2022-07-04 08:28 | Outpatient (CLI) | payer MEDICARE, OTHER, SELFPAY ==
[2022-06-28 23:06] VITALS: BMI 23.5
[2022-07-04 09:35] LABS: INR 3.6 (0.9-1.3); Prothrombin Time 41.7 SECONDS (10.1-12.7)
== END ==
PROVIDERS: Family Provider Family Medicine; PCP Family Medicine; Referring Provider Family Medicine; Visit Provider Family Medicine
DX: Z79.01 Long term (current) use of anticoagulants (principal)
CPT/HCPCS: 36415; 85610

== ENCOUNTER 2022-07-12 00:12 | Emergency (ER) | payer MEDICARE, OTHER, SELFPAY ==
[2022-07-06 10:06] VITALS: BMI 23.5
[2022-07-12] VITALS (10 sets, daily range): BP systolic 147–186; BP diastolic 78–102; PULSE 100–156; RESP 18–24; TEMP 37.4; O2SAT 94–97; BMI 23.7
--- NOTE | 2022-07-12 00:27 | DI.RAD.S_ITS ---
PROCEDURE: XR CHEST 1V INDICATIONS: suspected sepsis TECHNIQUE: One view of the chest was acquired. COMPARISON: [facility], CR, XR CHEST 1V, 10/24/2021, 10:41. [facility], CR, XR CHEST 1V, 06/28/2022, 20:05. [facility], CR, XR CHEST 1V, 07/02/2022, 12:16. FINDINGS: Surgical changes and devices: None. Lungs and pleura: There is persistent blunting of the costophrenic angles bilaterally consistent with chronic small loculated pleural effusions versus pleural thickening. There are linear opacities redemonstrated in the lung bases compatible with atelectasis or scarring. No definite acute consolidation. Mediastinum: Mediastinal contours are unchanged. Heart size is enlarged. Bones and chest wall: No suspicious bony lesions. Overlying soft tissues appear unremarkable. IMPRESSION: 1. No definite acute cardiopulmonary disease. 2. Chronic small loculated pleural effusions versus bilateral pleural thickening. Dictated by: Fabio Olson M.D. on 07/12/2022 at 1:19 Approved by: Fabio Olson M.D. on 07/12/2022 at 1:21
[2022-07-12] MEDS: SODIUM CHLORIDE 0.9% 1,000 ML 1000 ML IV (00:32)
[2022-07-12 00:55] LABS: Add Manual Diff / Slide Review NO; Basophils Absolute Auto 0 /uL (0-100); Basophils Percent Auto 0.3 % (0-2); Eosinophils Absolute Auto 100 /uL (0-450); Eosinophils Percent Auto 1.4 % (2-4); Hematocrit 44.2 % (41-53); Hemoglobin 14.7 g/dL (13.5-17.5); Lymphocytes Absolute Auto 400 /uL (1100-4500); Lymphocytes Percent Auto 6.2 % (25-40); Mean Corpuscular HGB Conc 33.3 % (30-36); Mean Corpuscular Hemoglobin 30.2 PG (26-34); Mean Corpuscular Volume 90.8 fL (80-100); Monocytes Absolute Auto 600 /uL (0-900); Neutrophils Absolute Auto 5800 /uL (1500-7000); Neutrophils Percent Auto 83.1 % (50-75); Platelet Count 267 X10^3/uL (150-400); Red Blood Cell Count 4.87 X10^6/uL (4.5-5.9); Red Cell Distribution Width 15.1 % (11.6-14.8)
[2022-07-12 01:02] LABS: Lactate (Lactic Acid) 1.3 mmol/L (0.7-2.1)
[2022-07-12 01:03] LABS: Alanine Aminotransferase 26 IU/L (<50); Albumin 4.5 g/dL (3.5-5.0); Albumin Globulin Ratio 1.3 (1.0-2.8); Alkaline Phosphatase 95 U/L (38-126); Aspartate Aminotransferase 29 IU/L (17-59); BUN Creatinine Ratio 17.9 (6-22); Bilirubin Total 1.6 mg/dL (0.2-1.3); Blood Urea Nitrogen 19 mg/dL (9-20); Calcium 8.7 mg/dL (8.4-10.2); Carbon Dioxide 25 mmol/L (22-32); Chloride 101 mmol/L (98-107); Estimated Glomerular Filt Rate > 60 mL/min (>60); Globulin 3.6 g/dL (1.7-4.1); Glucose 100 mg/dL (80-110); HEMOLYSIS 23 (0-50); Lipase 352 U/L (23-300); Potassium 4.1 mmol/L (3.4-5.1); Sodium 137 mmol/L (137-145); Total Protein 8.1 g/dL (6.3-8.2)
[2022-07-12 01:20] LABS: Procalcitonin 0.07 ng/mL (<0.5)
--- NOTE | 2022-07-12 01:21 | PC.NURSE ---
Pt reports being lightheaded, shaky, and off balance with walking. Reports max fever of 105 today.
[2022-07-12 01:34] LABS: Bacteria Urine None Seen; Culture Indicated Urine Cult Not Indicated; RBC Urine 0-1/HPF (0-5/HPF); WBC Urine None Seen (0-5/HPF)
--- NOTE | 2022-07-12 01:34 | ED.GENADULT ---
HPI - General Adult General Chief complaint: Fever Stated complaint: Fever Time Seen by Provider: 07/12/22 01:33 Source: patient and EMS Mode of arrival: EMS History of Present Illness HPI narrative: 82-year-old gentleman with history of atrial fibrillation controlled on metoprolol and anticoagulated with warfarin, BPH, hyperlipidemia who is vaccinated against COVID presents with fever and cough with dyspnea over the course of today. He states that he woke up feeling fine and then became slightly short of breath with the mild dry cough measured his temperature and at home states that it was 105. He felt that was too high and comes in for further evaluation. Reports no weakness, cognitive changes, nausea, vomiting, abdominal pain, diarrhea. He does not report any palpitations or headache. He is having no lower extremity edema Related Data Home Medications Medication Instructions Recorded Confirmed multivitamin (Multiple Vitamins 1 tab PO DAILY ##0 03/06/13 07/06/22 tablet) cholecalciferol (vitamin D3) 50 2,000 unit PO DAILY #0 tabs 08/03/16 07/06/22 mcg (2,000 unit) tablet (Vitamin D3) Iron High Potency 27 mg PO DAILY 04/09/19 07/06/22 Ocuvite 30unit 5mg 150mg 1 cap PO DAILY 04/09/19 07/06/22 metoprolol succinate 25 mg 25 mg PO BEDTIME 07/18/20 07/06/22 tablet,extended release 24 hr (Toprol XL) warfarin 5 mg tablet See Rx Instructions .Route .COMPLEX 02/28/22 07/06/22 tamsulosin 0.4 mg capsule 0.4 mg PO ONCE 07/06/22 07/06/22 Previous Rx's Medication Instructions Recorded finasteride 5 mg tablet 5 mg PO Q OTHER DAY #90 tabs 11/17/21 metoprolol succinate 100 mg 50 mg PO QAM #60 tabs 06/29/22 tablet,extended release 24 hr Allergies Allergy/AdvReac Type Severity Reaction Status Date / Time No Known Drug Allergies Allergy Verified 07/02/22 11:22 Review of Systems Review of Systems Narrative: Remainder of complete review of systems is otherwise unremarkable except for that included in the HPI. 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) Cervical somatic dysfunction Chronic atrial fibrillation (01/02/18) Chronic bilateral low back pain without sciatica Cranial somatic dysfunction Diplopia Elevated random blood glucose level Erectile dysfunction Essential hypertension (02/16/16) Fatigue Foot stiffness History of elevated PSA Incomplete emptying of bladder (02/16/16) Left arm weakness Pelvic somatic dysfunction Physician orders for life-sustaining treatment (POLST) form indicates patient wish for [id number] status Segmental and somatic dysfunction of lumbar region Segmental and somatic dysfunction of rib cage Segmental and somatic dysfunction of sacral region Segmental and somatic dysfunction of thoracic region Somatic dysfunction of both lower extremities Vitamin D deficiency Surgical History Hx of cholecystectomy Status post cholecystectomy Family History Mother CVA (cerebral vascular accident) Father Diabetes mellitus Brother Renal failure Social History marital status: number of children: 1 household members: none occupational status: previously employed Previous occupational history: [employer] Smoking Status: Former smoker alcohol intake: former caffeine: Yes Smoking Status: Former smoker alcohol intake frequency: 0-2 drinks per day Substance Use Type: does not use Exam Initial Vital Signs Initial Vital Signs: Vital Signs Pulse Rate 102 H 07/12/22 00:25 Respiratory Rate 24 07/12/22 00:25 Pulse Oximetry 96 07/12/22 00:25 General: Older-appearing gentleman in no acute distress. Able to speak in full sentences and participate completely with exam. HEENT: Moist mucous membranes, normal sclera with reactive pupils, Neck: No JVD, supple Respiratory: Lungs are clear to auscultation, no wheezing no rales no rhonchi. Full and symmetrical air movement Cardiac: Rapid and irregular, I do not appreciate murmurs today Abdomen: Soft, nontender, good bowel tones, no flank pain Skin: Warm and dry, no rashes Neurologic: Grossly neurologically intact with no obvious asymmetries or abnormalities Extremities: No trauma, well perfused Psych: Cooperative, appropriate insight and affect Course Orders Ordered: ED Orders 07/12/22 EKG-12 Lead Routine 07/12/22 00:20 Complete Blood Count AUTO DIFF Stat Comprehensive Metabolic Panel Stat Lactate (Lactic Acid) Stat Lipase Stat Procalcitonin Stat 07/12/22 00:24 Respiratory Panel (Film Array) Stat 07/12/22 00:27 XR chest 1V Stat EKG-12 Lead Stat RT Consult Eval and Treat NOW 07/12/22 00:50 Urine Microscopic Stat 07/12/22 00:56 Blood Culture Stat Discontinued Medications Sodium Chloride (Normal Saline 0.9%) 1,000 mls @ 1,000 mls/hr IV BOLUS ONE Stop: 07/12/22 01:26 Last Infusion: 07/12/22 01:49 Dose: 0 mls/hr Documented By: Admin: 07/12/22 00:32 Dose: 1,000 mls/hr Documented By: SANTI Vital Signs Vital signs: Vital Signs - 8 hr 07/12/22 00:42 07/12/22 00:25 07/12/22 00:30 Temperature 99.4 F Pulse Rate 114 H 102 H 103 H Respiratory Rate 18 24 21 Blood Pressure 150/90 H Pulse Oximetry 95 96 95 Oxygen Delivery Method Room Air 07/12/22 01:00 07/12/22 01:25 07/12/22 01:25 Temperature Pulse Rate 100 H 133 H Respiratory Rate 24 Blood Pressure 160/101 H Pulse Oximetry 97 Oxygen Delivery Method 07/12/22 01:30 07/12/22 01:30 07/12/22 02:00 Temperature Pulse Rate 114 H Respiratory Rate 24 Blood Pressure 186/102 H 156/92 H Pulse Oximetry 94 Oxygen Delivery Method 07/12/22 02:00 07/12/22 02:30 07/12/22 02:30 Temperature Pulse Rate 112 H 119 H Respiratory Rate 22 Blood Pressure 147/78 H Pulse Oximetry 96 95 Oxygen Delivery Method 07/12/22 03:00 07/12/22 03:30 07/12/22 03:30 Temperature Pulse Rate 156 H 112 H Respiratory Rate 22 Blood Pressure 149/80 H Pulse Oximetry 94 Oxygen Delivery Method Medical Decision Making Lab Data Result diagrams: 07/12/22 00:20 07/12/22 00:20 Labs: Lab Results 07/12/22 07/12/22 07/12/22 Range/Units 00:20 00:20 00:20 WBC 7.0 (4.5-11.0) X10^3/uL RBC 4.87 (4.5-5.9) X10^6/uL Hgb 14.7 (13.5-17.5) g/dL Hct 44.2 (41-53) % MCV 90.8 (80-100) fL MCH 30.2 (26-34) PG MCHC 33.3 (30-36) % RDW 15.1 H (11.6-14.8) % Plt Count 267 (150-400) X10^3/uL Neut % (Auto) 83.1 H (50-75) % Lymph % (Auto) 6.2 L (25-40) % [place] % (Auto) 9.0 (3-14) % Eos % (Auto) 1.4 L (2-4) % Baso % (Auto) 0.3 (0-2) % Neut # (Auto) 5800 (2572-0307) /uL Lymph # (Auto) 400 L (8723-6658) /uL [place] # (Auto) 600 (0-900) /uL Eos # (Auto) 100 (0-450) /uL Baso # (Auto) 0 (0-100) /uL Sodium 137 (137-145) mmol/L Potassium 4.1 (3.4-5.1) mmol/L Chloride 101 (98-107) mmol/L Carbon Dioxide 25 (22-32) mmol/L BUN 19 (9-20) mg/dL Creatinine 1.06 (0.66-1.25) mg/dL Estimated GFR > 60 (>60) mL/min BUN/Creatinine Ratio 17.9 (6-22) Glucose 100 (80-110) mg/dL Lactate 1.3 (0.7-2.1) mmol/L Calcium 8.7 (8.4-10.2) mg/dL Total Bilirubin 1.6 H (0.2-1.3) mg/dL AST 29 (17-59) IU/L ALT 26 (<50) IU/L Alkaline Phosphatase 95 (38-126) U/L Total Protein 8.1 (6.3-8.2) g/dL Albumin 4.5 (3.5-5.0) g/dL Globulin 3.6 (1.7-4.1) g/dL Albumin/Globulin Ratio 1.3 (1.0-2.8) Lipase 352 H (23-300) U/L Procalcitonin 0.07 (<0.5) ng/mL Urine RBC (0-5/HPF) Urine WBC (0-5/HPF) Urine Bacteria (None) Ur Culture Indicated? Chlamy pneumoniae PCR (Not Detect) Adenovirus (PCR) (Not Detect) B. pertussis DNA (PCR) (Not Detecte) B.parapertussis DNA PCR (Not Detecte) Coronavirus OC43 (PCR) (Not Detect) Coronavirus HKU1 (PCR) (Not Detect) Coronavirus 229E (PCR) (Not Detect) SARS-CoV-2 (PCR) (Not Detecte) Coronavirus NL63 (PCR) (Not Detect) Human Metapneumovir PCR (Not Detect) Influenza Type A (PCR) (Not Detect) Influenza Type B (PCR) (Not Detect) M. pneumoniae (PCR) (Not Detect) Parainfluenza 1 (PCR) (Not Detect) Parainfluenza 2 (PCR) (Not Detect) Parainfluenza 3 (PCR) (Not Detect) Parainfluenza 4 (PCR) (Not Detect) RSV (PCR) (Not Detect) Entero/Rhino (PCR) (Not Detect) 07/12/22 07/12/22 Range/Units 00:24 00:50 WBC (4.5-11.0) X10^3/uL RBC (4.5-5.9) X10^6/uL Hgb (13.5-17.5) g/dL Hct (41-53) % MCV (80-100) fL MCH (26-34) PG MCHC (30-36) % RDW (11.6-14.8) % Plt Count (150-400) X10^3/uL Neut % (Auto) (50-75) % Lymph % (Auto) (25-40) % [place] % (Auto) (3-14) % Eos % (Auto) (2-4) % Baso % (Auto) (0-2) % Neut # (Auto) (5676-6828) /uL Lymph # (Auto) (3199-8134) /uL [place] # (Auto) (0-900) /uL Eos # (Auto) (0-450) /uL Baso # (Auto) (0-100) /uL Sodium (137-145) mmol/L Potassium (3.4-5.1) mmol/L Chloride (98-107) mmol/L Carbon Dioxide (22-32) mmol/L BUN (9-20) mg/dL Creatinine (0.66-1.25) mg/dL Estimated GFR (>60) mL/min BUN/Creatinine Ratio (6-22) Glucose (80-110) mg/dL Lactate (0.7-2.1) mmol/L Calcium (8.4-10.2) mg/dL Total Bilirubin (0.2-1.3) mg/dL AST (17-59) IU/L ALT (<50) IU/L Alkaline Phosphatase (38-126) U/L Total Protein (6.3-8.2) g/dL Albumin (3.5-5.0) g/dL Globulin (1.7-4.1) g/dL Albumin/Globulin Ratio (1.0-2.8) Lipase (23-300) U/L Procalcitonin (<0.5) ng/mL Urine RBC 0-1/hpf (0-5/HPF) Urine WBC None seen (0-5/HPF) Urine Bacteria None seen (None) Ur Culture Indicated? Cult not indicated Chlamy pneumoniae PCR Not detected (Not Detect) Adenovirus (PCR) Not detected (Not Detect) B. pertussis DNA (PCR) Not detected (Not Detecte) B.parapertussis DNA PCR Not detected (Not Detecte) Coronavirus OC43 (PCR) Not detected (Not Detect) Coronavirus HKU1 (PCR) Not detected (Not Detect) Coronavirus 229E (PCR) Not detected (Not Detect) SARS-CoV-2 (PCR) Detected H (Not Detecte) Coronavirus NL63 (PCR) Not detected (Not Detect) Human Metapneumovir PCR Not detected (Not Detect) Influenza Type A (PCR) Not detected (Not Detect) Influenza Type B (PCR) Not detected (Not Detect) M. pneumoniae (PCR) Not detected (Not Detect) Parainfluenza 1 (PCR) Not detected (Not Detect) Parainfluenza 2 (PCR) Not detected (Not Detect) Parainfluenza 3 (PCR) Not detected (Not Detect) Parainfluenza 4 (PCR) Not detected (Not Detect) RSV (PCR) Not detected (Not Detect) Entero/Rhino (PCR) Not detected (Not Detect) Urine Dip Bedside Urine Glucose Negative Bedside Urine Bilirubin - Negative Bedside Urine Ketone - Negative Urine Specific [place] 1.020 Bedside Urine Occult Blood +/- Bedside Urine pH 6.0 Bedside Urine Protein - Negative Bedside Urine Urobilinogen - Negative Bedside Urine Nitrite - Negative Bedside Urine Leukocytes - Negative Esterase Point of care testing: Urine Dip Bedside Urine Glucose Negative Bedside Urine Bilirubin - Negative Bedside Urine Ketone - Negative Urine Specific [place] 1.020 Bedside Urine Occult Blood +/- Bedside Urine pH 6.0 Bedside Urine Protein - Negative Bedside Urine Urobilinogen - Negative Bedside Urine Nitrite - Negative Bedside Urine Leukocytes - Negative Esterase Imaging Data Chest x-ray: Radiologist's Impression: INDINGS:? ? Surgical changes and devices:? None.? ? Lungs and pleura:? There is persistent blunting of the costophrenic angles bilaterally consistent with chronic small loculated pleural effusions versus pleural thickening.? There are linear opacities redemonstrated in the lung bases compatible with atelectasis or scarring.? No definite acute consolidation. ? Mediastinum:? Mediastinal contours are unchanged.? Heart size is enlarged. ? Bones and chest wall:? No suspicious bony lesions.? Overlying soft tissues appear unremarkable.? ? IMPRESSION:? ? 1. No definite acute cardiopulmonary disease. ? 2. Chronic small loculated pleural effusions versus bilateral pleural thickening.? ? ? Dictated by: Fabio Olsno M.D. on 07/12/2022 at 1:19 ? ? ECG Data Interpretation: Atrial fibrillation at a rate of 73 Nonspecific intraventricular conduction delay No acute ischemic changes MDM Narrative Medical decision making narrative: 82-year-old gentleman with chronic atrial fibrillation, valvular disease, anticoagulated on warfarin rate controlled with metoprolol presents with cough and fever. Chest x-ray is unremarkable, labs do not show signs of sepsis, bacterial infection, congestive heart failure, acute coronary syndrome. Viral panel does return positive for COVID. Saturations are at 95%. Heart rate is 90-130 but he has not taken his nighttime metoprolol. He is not complaining of significant weakness and does live with his son. We talked about options and I believe at this point he is going to be safe for home discharge. Keke has adverse interference with most of his medications and in light of the fact that he is fully vaccinated will opt to not change medications and not prescribe packed limited. This is reviewed with the patient. Given his slightly elevated chronic atrial fibrillation and low-grade fevers will ask that he leave his current metoprolol dose alone. He currently is on 100 of succinate in the morning and 25 in the evening and his primary care doctor had recently asked him to decrease to 50 mg in the morning. I have asked him to continue the 100 mg dose until he is feeling better from his acute COVID infection and then decrease to 50 mg in the morning. All of this is reviewed with patient and his son. Reviewed signs and symptoms of worsening fatigue, exertional dyspnea or additional reasons that he might need to return to the emergency department at this point he is safe for home discharge Discharge Plan Departure Patient Disposition: Home Clinical Impression: COVID-19 virus infection Instructions: DI for COVID-19 (Suspected or Confirmed ) Activity Restrictions/Additional Instructions: Thank you for coming in the You have COVID and I suspect that explains both shortness of breath and the high fever that you noticed at home. Your workup today does not suggest significant bacterial infection, congestive heart failure, sepsis, pulmonary embolism, or alternate reason for hospitalization at this time. Your oxygen saturation was 95% on room air which is a safe number for you to be discharged home. You do have your chronic atrial fibrillation and your rate was a bit high but you also had not taking her evening metoprolol dose. I did give you your metoprolol dose in the emergency department but still want you to continue the 100 mg of metoprolol every morning including later this morning and the 25 mg of metoprolol at night. Once you are over your COVID infection then you can decrease the morning metoprolol to 50 mg as your doctor had previously recommended. With the medications that you currently are taking, the prescription antiviral medications to treat COVID are not going to be appropriate. These medications all interact in unsafe ways and will not provide you additional benefit. If you find that you are getting worse or develop any new symptoms, please feel free to return to the emergency department for further evaluation. Prescriptions: No Action multivitamin [Multiple Vitamins] 1 EACH tablet 1 tab PO DAILY Qty: 0 cholecalciferol (vitamin D3) [Vitamin D3] 2,000 UNIT tablet 2,000 unit PO DAILY Qty: 0 finasteride 5 mg tablet 5 mg PO Q OTHER DAY Qty: 90 3RF warfarin 5 mg tablet See Rx Instructions .ROUTE .COMPLEX Dose Instruction: Take 1/2 tablet daily except on and Mon take 1 or as directed by doctor ; Rx Instructions: Take 5mg Monday and Monday and 2.5mg all other days, or as directed. tamsulosin 0.4 mg capsule 0.4 mg PO ONCE Rx Instructions: 30 minutes following the same meal each day Iron High Potency 27 mg tablet 27 mg PO DAILY Label Comments: Iron High Potency 240mg (27mg iron) Ocuvite 30unit 5mg 150mg 1 cap PO DAILY metoprolol succinate 100 MG tablet extended release 24 hr 50 mg PO QAM Qty: 60 0RF metoprolol succinate [Toprol XL] 25 mg tablet extended release 24 hr 25 mg PO BEDTIME Referrals: Alejandro Pinto DO [Primary Care Provider] -
[2022-07-12 01:52] LABS: Adenovirus Not Detected (Not Detect)
[2022-07-12 01:53] LABS: B. parapertussis Not Detected (Not Detecte); Bordetella pertussis Not Detected (Not Detecte); Chlamydophila pneumoniae Not Detected (Not Detect); Coronavirus 229E Not Detected (Not Detect); Coronavirus HKU1 Not Detected (Not Detect); Coronavirus NL 63 Not Detected (Not Detect); Coronavirus OC43 Not Detected (Not Detect); Human Metapneumovirus Not Detected (Not Detect); Human Rhinovirus/Enterovirus Not Detected (Not Detect); Influenza A Not Detected (Not Detect); Influenza B Not Detected (Not Detect); Mycoplasma pneumoniae Not Detected (Not Detect); Parainfluenza Virus 1 Not Detected (Not Detect); Parainfluenza Virus 2 Not Detected (Not Detect); Parainfluenza Virus 3 Not Detected (Not Detect); Parainfluenza Virus 4 Not Detected (Not Detect); Respiratory Syncytial Virus Not Detected (Not Detect); SARS- CoV-2 Detected (Not Detecte)
[2022-07-12] MEDS: METOPROLOL ER 50 MG TABLET PO (04:12)
== END 2022-07-12 04:27 | disposition home or self-care (01) ==
PROVIDERS: Emergency Provider Emergency Medicine; Family Provider Family Medicine; PCP Family Medicine
DX: U07.1 COVID-19 (principal); R06.00 Dyspnea, unspecified
CPT/HCPCS: 36415; 71045; 80053; 81003; 81015; 83605; 83690; 84145; 85025; 87040; 87633; 93005; 96360; 99284

== ENCOUNTER → 2022-07-20 09:50 | Outpatient (CLI) | payer MEDICARE, OTHER, SELFPAY ==
[2022-07-06 10:06] VITALS: BMI 23.5
[2022-07-20 11:13] LABS: INR 1.7 (0.9-1.3); Prothrombin Time 19.5 SECONDS (10.1-12.7)
== END ==
PROVIDERS: Family Provider Family Medicine; PCP Family Medicine; Referring Provider Family Medicine; Visit Provider Family Medicine
DX: Z79.01 Long term (current) use of anticoagulants (principal); I48.20 Chronic atrial fibrillation, unspecified
CPT/HCPCS: 36415; 85610

== ENCOUNTER 2022-08-06 13:03 | Emergency (ER) | payer MEDICARE, OTHER, SELFPAY ==
[2022-07-06 10:06] VITALS: BMI 23.5
[2022-08-06 13:33] VITALS: BP 178/81; PULSE 88; RESP 20; TEMP 36.3; O2SAT 98; BMI 23.7
--- NOTE | 2022-08-06 13:41 | DI.RAD.S_ITS ---
PROCEDURE: XR CHEST 1V INDICATIONS: chest pain TECHNIQUE: One view of the chest was acquired. COMPARISON: [facility], CR, XR CHEST 1V, 07/12/2022, 0:39. FINDINGS: Surgical changes and devices: None. Lungs and pleura: Interstitial prominence is unchanged compared to the prior study and is likely chronic. Blunting of the costophrenic angles bilaterally is unchanged consistent with pleural thickening. Lungs are clear. No pleural effusions or pneumothorax. Mediastinum: Mediastinal contours appear normal. Heart size is enlarged. Bones and chest wall: No suspicious bony lesions. Overlying soft tissues appear unremarkable. IMPRESSION: 1. No acute cardiopulmonary abnormality. 2. Cardiomegaly, stable. 3. Chronic pleural thickening in the lung bases. Dictated by: Jaycob Mancilla M.D. on 08/06/2022 at 14:03 Approved by: Jaycob Mancilla M.D. on 08/06/2022 at 14:05
[2022-08-06 13:56] LABS: Add Manual Diff / Slide Review NO; Basophils Absolute Auto 0 /uL (0-100); Basophils Percent Auto 0.8 % (0-2); Eosinophils Absolute Auto 100 /uL (0-450); Eosinophils Percent Auto 1.7 % (2-4); Hematocrit 40.1 % (41-53); Hemoglobin 13.6 g/dL (13.5-17.5); Lymphocytes Absolute Auto 1000 /uL (1100-4500); Lymphocytes Percent Auto 16.3 % (25-40); Mean Corpuscular HGB Conc 33.9 % (30-36); Mean Corpuscular Hemoglobin 30.5 PG (26-34); Mean Corpuscular Volume 90.1 fL (80-100); Monocytes Absolute Auto 600 /uL (0-900); Monocytes Percent Auto 10.4 % (3-14); Neutrophils Absolute Auto 4200 /uL (1500-7000); Neutrophils Percent Auto 70.8 % (50-75); Platelet Count 272 X10^3/uL (150-400); Red Blood Cell Count 4.45 X10^6/uL (4.5-5.9); Red Cell Distribution Width 14.9 % (11.6-14.8)
[2022-08-06 14:09] LABS: Alanine Aminotransferase 23 IU/L (<50); Albumin 3.5 g/dL (3.5-5.0); Albumin Globulin Ratio 1.2 (1.0-2.8); Alkaline Phosphatase 80 U/L (38-126); Aspartate Aminotransferase 25 IU/L (17-59); BUN Creatinine Ratio 18.8 (6-22); Bilirubin Total 0.8 mg/dL (0.2-1.3); Blood Urea Nitrogen 19 mg/dL (9-20); Calcium 8.3 mg/dL (8.4-10.2); Carbon Dioxide 26 mmol/L (22-32); Chloride 106 mmol/L (98-107); Creatine Kinase 43 U/L (55-170); Estimated Glomerular Filt Rate > 60 mL/min (>60); Glucose 91 mg/dL (80-110); HEMOLYSIS < 15 (0-50); Lipase 290 U/L (23-300); Magnesium 2.2 mg/dL (1.6-2.3); Potassium 4.4 mmol/L (3.4-5.1); Sodium 137 mmol/L (137-145); Total Protein 6.5 g/dL (6.3-8.2)
[2022-08-06 14:15] VITALS: BP 130/80; BP 144/73; BP 157/76; PULSE 78; PULSE 85; PULSE 86
--- NOTE | 2022-08-06 14:15 | ED.DIZZY ---
HPI - Dizziness <Hebert Nation PA-C - Last Filed: 08/06/22 16:22> General Chief Complaint: Dizziness Stated Complaint: lightheadness; unsteady walking Time Seen by Provider: 08/06/22 13:38 Source: patient Mode of arrival: Family Vehicle History of Present Illness HPI Narrative: Patient is a 82-year-old male who presents to the emergency room today with complaint lightheadedness and unstable gait that he has had for several months now states it worsened yesterday. Denies syncope denies chest pain nausea vomiting and shortness or breath or abdominal pain. Admits to abnormal bowel bladder functions and also denies any changes in vision. 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 Denies any other concerns. Related Data Home Medications Medication Instructions Recorded Confirmed multivitamin (Multiple Vitamins 1 tab PO DAILY ##0 03/06/13 07/06/22 tablet) cholecalciferol (vitamin D3) 50 2,000 unit PO DAILY #0 tabs 08/03/16 07/06/22 mcg (2,000 unit) tablet (Vitamin D3) Iron High Potency 27 mg PO DAILY 04/09/19 07/06/22 Ocuvite 30unit 5mg 150mg 1 cap PO DAILY 04/09/19 07/06/22 metoprolol succinate 25 mg 25 mg PO BEDTIME 07/18/20 07/06/22 tablet,extended release 24 hr (Toprol XL) tamsulosin 0.4 mg capsule 0.4 mg PO ONCE 07/06/22 07/06/22 Previous Rx's Medication Instructions Recorded finasteride 5 mg tablet 5 mg PO Q OTHER DAY #90 tabs 11/17/21 metoprolol succinate 100 mg 50 mg PO QAM #60 tabs 06/29/22 tablet,extended release 24 hr nirmatrelvir 300 mg (150 mg See Rx Instructions PO .COMPLEX 07/13/22 x2)-ritonavir 100 mg tablet,dose #30 tabs pack(EUA) (Paxlovid) warfarin 5 mg tablet See Rx Instructions .Route 07/25/22 .COMPLEX #90 tabs Allergies Allergy/AdvReac Type Severity Reaction Status Date / Time No Known Drug Allergies Allergy Verified 08/06/22 13:32 Review of Systems <Hebert Nation PA-C - Last Filed: 08/06/22 16:22> Review of Systems Narrative: R.O.S.: General: No fever, chills or fatigue. Cardiovascular: No chest pain or palpitations Respiratory: No S.O.B. HEENT: No congestion, ear pain, rhinorrhea, sore throat or tinnitus Gastrointestinal: No nausea or vomiting Skin: No rash or associated abnormalities Musculoskeletal: No pain in muscles or joints, no limitation of range of motion, no paresthesia or numbness. ?? Neurological: Awake, alert and in not apparent distress. Lightheadedness and unstable gait. 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) Cervical somatic dysfunction Chronic atrial fibrillation (01/02/18) Chronic bilateral low back pain without sciatica Cranial somatic dysfunction Diplopia Elevated random blood glucose level Erectile dysfunction Essential hypertension (02/16/16) Fatigue Foot stiffness History of elevated PSA Incomplete emptying of bladder (02/16/16) Left arm weakness Pelvic somatic dysfunction Physician orders for life-sustaining treatment (POLST) form indicates patient wish for [id number] status Segmental and somatic dysfunction of lumbar region Segmental and somatic dysfunction of rib cage Segmental and somatic dysfunction of sacral region Segmental and somatic dysfunction of thoracic region Somatic dysfunction of both lower extremities Vitamin D deficiency Surgical History Hx of cholecystectomy Status post cholecystectomy Family History Mother CVA (cerebral vascular accident) Father Diabetes mellitus Brother Renal failure Social History marital status: number of children: 1 household members: none occupational status: previously employed Previous occupational history: [employer] Smoking Status: Former smoker alcohol intake: former caffeine: Yes Smoking Status: Former smoker alcohol intake frequency: 0-2 drinks per day Substance Use Type: does not use Exam <Hebert Nation PA-C - Last Filed: 08/06/22 16:22> Initial Vital Signs Initial Vital Signs: Vital Signs Temperature 97.3 F L 08/06/22 13:33 Pulse Rate 88 08/06/22 13:33 Respiratory Rate 20 08/06/22 13:33 Blood Pressure 178/81 H 08/06/22 13:33 Pulse Oximetry 98 08/06/22 13:33 Oxygen Delivery Method 08/06/22 13:33 <Julita Hearn MD - Last Filed: 08/08/22 11:39> Initial Vital Signs Initial Vital Signs: Vital Signs Temperature 97.3 F L 08/06/22 13:33 Pulse Rate 88 08/06/22 13:33 Respiratory Rate 20 08/06/22 13:33 Blood Pressure 178/81 H 08/06/22 13:33 Pulse Oximetry 98 08/06/22 13:33 Oxygen Delivery Method 08/06/22 13:33 Course <Hebert Nation PA-C - Last Filed: 08/06/22 16:22> Orders Ordered: Discontinued Medications Sodium Chloride (Normal Saline 0.9%) 1,000 mls @ 1,000 mls/hr IV BOLUS ONE Stop: 08/06/22 16:12 Vital Signs Vital signs: Vital Signs - 8 hr 08/06/22 13:33 08/06/22 14:15 Temperature 97.3 F L Pulse Rate 88 Pulse Rate [Orthostatic Lying] 78 Pulse Rate [Orthostatic Sitting] 86 Pulse Rate [Orthostatic Standing] 85 Respiratory Rate 20 Blood Pressure 178/81 H Blood Pressure [Orthostatic Lying] 130/80 Blood Pressure [Orthostatic Sitting] 157/76 H Blood Pressure [Orthostatic Standing] 144/73 H Pulse Oximetry 98 Oxygen Delivery Method Room Air <Julita Hearn MD - Last Filed: 08/08/22 11:39> Orders Ordered: Discontinued Medications Sodium Chloride (Normal Saline 0.9%) 1,000 mls @ 1,000 mls/hr IV BOLUS ONE Stop: 08/06/22 16:12 Vital Signs Vital signs: Vital Signs - 8 hr 08/06/22 13:33 08/06/22 14:15 Temperature 97.3 F L Pulse Rate 88 Pulse Rate [Orthostatic Lying] 78 Pulse Rate [Orthostatic Sitting] 86 Pulse Rate [Orthostatic Standing] 85 Respiratory Rate 20 Blood Pressure 178/81 H Blood Pressure [Orthostatic Lying] 130/80 Blood Pressure [Orthostatic Sitting] 157/76 H Blood Pressure [Orthostatic Standing] 144/73 H Pulse Oximetry 98 Oxygen Delivery Method Room Air MDM - Dizziness <Hebert Nation PA-C - Last Filed: 08/06/22 16:22> Lab Data Result diagrams: 08/06/22 13:50 08/06/22 13:50 Labs: Lab Results 08/06/22 08/06/22 08/06/22 Range/Units 13:50 13:50 15:04 WBC 6.0 (4.5-11.0) X10^3/uL RBC 4.45 L (4.5-5.9) X10^6/uL Hgb 13.6 (13.5-17.5) g/dL Hct 40.1 L (41-53) % MCV 90.1 (80-100) fL MCH 30.5 (26-34) PG MCHC 33.9 (30-36) % RDW 14.9 H (11.6-14.8) % Plt Count 272 (150-400) X10^3/uL Neut % (Auto) 70.8 (50-75) % Lymph % (Auto) 16.3 L (25-40) % [place] % (Auto) 10.4 (3-14) % Eos % (Auto) 1.7 L (2-4) % Baso % (Auto) 0.8 (0-2) % Neut # (Auto) 4200 (0539-6900) /uL Lymph # (Auto) 1000 L (1439-1294) /uL [place] # (Auto) 600 (0-900) /uL Eos # (Auto) 100 (0-450) /uL Baso # (Auto) 0 (0-100) /uL Sodium 137 (137-145) mmol/L Potassium 4.4 (3.4-5.1) mmol/L Chloride 106 (98-107) mmol/L Carbon Dioxide 26 (22-32) mmol/L BUN 19 (9-20) mg/dL Creatinine 1.01 (0.66-1.25) mg/dL Estimated GFR > 60 (>60) mL/min BUN/Creatinine Ratio 18.8 (6-22) Glucose 91 (80-110) mg/dL Calcium 8.3 L (8.4-10.2) mg/dL Magnesium 2.2 (1.6-2.3) mg/dL Total Bilirubin 0.8 (0.2-1.3) mg/dL AST 25 (17-59) IU/L ALT 23 (<50) IU/L Alkaline Phosphatase 80 (38-126) U/L Total Creatine Kinase 43 L (55-170) U/L CK-MB (CK-2) TNP CK-MB (CK-2) Rel Index TNP Troponin I < 0.012 (0.01-0.034) ng/mL Total Protein 6.5 (6.3-8.2) g/dL Albumin 3.5 (3.5-5.0) g/dL Globulin 3.0 (1.7-4.1) g/dL Albumin/Globulin Ratio 1.2 (1.0-2.8) Lipase 290 (23-300) U/L Urine RBC (0-5/HPF) Urine WBC (0-5/HPF) Urine Bacteria (None) Ur Culture Indicated? SARS-CoV-2 (PCR) Negative (Negative) 08/06/22 Range/Units 15:37 WBC (4.5-11.0) X10^3/uL RBC (4.5-5.9) X10^6/uL Hgb (13.5-17.5) g/dL Hct (41-53) % MCV (80-100) fL MCH (26-34) PG MCHC (30-36) % RDW (11.6-14.8) % Plt Count (150-400) X10^3/uL Neut % (Auto) (50-75) % Lymph % (Auto) (25-40) % [place] % (Auto) (3-14) % Eos % (Auto) (2-4) % Baso % (Auto) (0-2) % Neut # (Auto) (0057-6739) /uL Lymph # (Auto) (2216-2661) /uL [place] # (Auto) (0-900) /uL Eos # (Auto) (0-450) /uL Baso # (Auto) (0-100) /uL Sodium (137-145) mmol/L Potassium (3.4-5.1) mmol/L Chloride (98-107) mmol/L Carbon Dioxide (22-32) mmol/L BUN (9-20) mg/dL Creatinine (0.66-1.25) mg/dL Estimated GFR (>60) mL/min BUN/Creatinine Ratio (6-22) Glucose (80-110) mg/dL Calcium (8.4-10.2) mg/dL Magnesium (1.6-2.3) mg/dL Total Bilirubin (0.2-1.3) mg/dL AST (17-59) IU/L ALT (<50) IU/L Alkaline Phosphatase (38-126) U/L Total Creatine Kinase (55-170) U/L CK-MB (CK-2) CK-MB (CK-2) Rel Index Troponin I (0.01-0.034) ng/mL Total Protein (6.3-8.2) g/dL Albumin (3.5-5.0) g/dL Globulin (1.7-4.1) g/dL Albumin/Globulin Ratio (1.0-2.8) Lipase (23-300) U/L Urine RBC None seen (0-5/HPF) Urine WBC 0-1/hpf (0-5/HPF) Urine Bacteria Occasional (0-1) (None) Ur Culture Indicated? Culture not indicate SARS-CoV-2 (PCR) (Negative) Urine Dip Bedside Urine Glucose Negative Bedside Urine Bilirubin - Negative Bedside Urine Ketone - Negative Urine Specific [place] 1.015 Bedside Urine Occult Blood - Negative Bedside Urine pH 6.0 Bedside Urine Protein - Negative Bedside Urine Urobilinogen - Negative Bedside Urine Nitrite - Negative Bedside Urine Leukocytes +/- 15 Esterase Imaging Data Chest x-ray: Radiologist's Impression: PROCEDURE:? XR CHEST 1V ? INDICATIONS:? chest pain ? TECHNIQUE:? One view of the chest was acquired.? ? COMPARISON:? [facility], CR, XR CHEST 1V, 07/12/2022, 0:39. ? FINDINGS:? ? Surgical changes and devices:? None.? ? Lungs and pleura:? Interstitial prominence is unchanged compared to the prior study and is likely chronic.? Blunting of the costophrenic angles bilaterally is unchanged consistent with pleural thickening.? Lungs are clear.? No pleural effusions or pneumothorax.? ? Mediastinum:? Mediastinal contours appear normal.? Heart size is enlarged. ? Bones and chest wall:? No suspicious bony lesions.? Overlying soft tissues appear unremarkable.? ? IMPRESSION:? 1. No acute cardiopulmonary abnormality. 2. Cardiomegaly, stable. 3. Chronic pleural thickening in the lung bases.? ? ? Dictated by: Jaycob Mancilla M.D. on 08/06/2022 at 14:03 ? ? Approved by: Jaycob Mancilla M.D. on 08/06/2022 at 14:05? ECG Data Interpretation: ECG reveals atrial fibrillation and this is not new for this patient. Patient admits to a ongoing history of atrial fibrillation. MDM Narrative Medical decision making narrative: Patient is an 82-year-old male who presents to the emergency room with a complaint of lightheadedness and unstable gait he has half months that worsened yesterday. Admits to being seen in this ER previously for COVID-19 and changes in vision. Labs were ordered to rule out current COVID infection urinary tract infection and to help rule out any other conditions that could cause these symptoms. Patient RBC and hematocrit were slightly below normal levels. Chest film was in normal limits urine was negative infection COVID test was negative. Patient advised to follow-up with his primary care provider in regards to his periodic lightheadedness. Patient also advised to follow through with his already scheduled appointment with his liquor bridge operator helper. <Julita Hearn MD - Last Filed: 08/08/22 11:39> Lab Data Labs: Lab Results 08/06/22 08/06/22 08/06/22 Range/Units 13:50 13:50 15:04 WBC 6.0 (4.5-11.0) X10^3/uL RBC 4.45 L (4.5-5.9) X10^6/uL Hgb 13.6 (13.5-17.5) g/dL Hct 40.1 L (41-53) % MCV 90.1 (80-100) fL MCH 30.5 (26-34) PG MCHC 33.9 (30-36) % RDW 14.9 H (11.6-14.8) % Plt Count 272 (150-400) X10^3/uL Neut % (Auto) 70.8 (50-75) % Lymph % (Auto) 16.3 L (25-40) % [place] % (Auto) 10.4 (3-14) % Eos % (Auto) 1.7 L (2-4) % Baso % (Auto) 0.8 (0-2) % Neut # (Auto) 4200 (6559-8830) /uL Lymph # (Auto) 1000 L (8843-1803) /uL [place] # (Auto) 600 (0-900) /uL Eos # (Auto) 100 (0-450) /uL Baso # (Auto) 0 (0-100) /uL Sodium 137 (137-145) mmol/L Potassium 4.4 (3.4-5.1) mmol/L Chloride 106 (98-107) mmol/L Carbon Dioxide 26 (22-32) mmol/L BUN 19 (9-20) mg/dL Creatinine 1.01 (0.66-1.25) mg/dL Estimated GFR > 60 (>60) mL/min BUN/Creatinine Ratio 18.8 (6-22) Glucose 91 (80-110) mg/dL Calcium 8.3 L (8.4-10.2) mg/dL Magnesium 2.2 (1.6-2.3) mg/dL Total Bilirubin 0.8 (0.2-1.3) mg/dL AST 25 (17-59) IU/L ALT 23 (<50) IU/L Alkaline Phosphatase 80 (38-126) U/L Total Creatine Kinase 43 L (55-170) U/L CK-MB (CK-2) TNP CK-MB (CK-2) Rel Index TNP Troponin I < 0.012 (0.01-0.034) ng/mL Total Protein 6.5 (6.3-8.2) g/dL Albumin 3.5 (3.5-5.0) g/dL Globulin 3.0 (1.7-4.1) g/dL Albumin/Globulin Ratio 1.2 (1.0-2.8) Lipase 290 (23-300) U/L Urine RBC (0-5/HPF) Urine WBC (0-5/HPF) Urine Bacteria (None) Ur Culture Indicated? SARS-CoV-2 (PCR) Negative (Negative) 08/06/22 Range/Units 15:37 WBC (4.5-11.0) X10^3/uL RBC (4.5-5.9) X10^6/uL Hgb (13.5-17.5) g/dL Hct (41-53) % MCV (80-100) fL MCH (26-34) PG MCHC (30-36) % RDW (11.6-14.8) % Plt Count (150-400) X10^3/uL Neut % (Auto) (50-75) % Lymph % (Auto) (25-40) % [place] % (Auto) (3-14) % Eos % (Auto) (2-4) % Baso % (Auto) (0-2) % Neut # (Auto) (9689-1198) /uL Lymph # (Auto) (8928-4036) /uL [place] # (Auto) (0-900) /uL Eos # (Auto) (0-450) /uL Baso # (Auto) (0-100) /uL Sodium (137-145) mmol/L Potassium (3.4-5.1) mmol/L Chloride (98-107) mmol/L Carbon Dioxide (22-32) mmol/L BUN (9-20) mg/dL Creatinine (0.66-1.25) mg/dL Estimated GFR (>60) mL/min BUN/Creatinine Ratio (6-22) Glucose (80-110) mg/dL Calcium (8.4-10.2) mg/dL Magnesium (1.6-2.3) mg/dL Total Bilirubin (0.2-1.3) mg/dL AST (17-59) IU/L ALT (<50) IU/L Alkaline Phosphatase (38-126) U/L Total Creatine Kinase (55-170) U/L CK-MB (CK-2) CK-MB (CK-2) Rel Index Troponin I (0.01-0.034) ng/mL Total Protein (6.3-8.2) g/dL Albumin (3.5-5.0) g/dL Globulin (1.7-4.1) g/dL Albumin/Globulin Ratio (1.0-2.8) Lipase (23-300) U/L Urine RBC None seen (0-5/HPF) Urine WBC 0-1/hpf (0-5/HPF) Urine Bacteria Occasional (0-1) (None) Ur Culture Indicated? Culture not indicate SARS-CoV-2 (PCR) (Negative) Urine Dip Bedside Urine Glucose Negative Bedside Urine Bilirubin - Negative Bedside Urine Ketone - Negative Urine Specific [place] 1.015 Bedside Urine Occult Blood - Negative Bedside Urine pH 6.0 Bedside Urine Protein - Negative Bedside Urine Urobilinogen - Negative Bedside Urine Nitrite - Negative Bedside Urine Leukocytes +/- 15 Esterase Discharge Plan Departure Patient Disposition: Home Clinical Impression: Atrial fibrillation, Intermittent lightheadedness, Anemia Instructions: Anemia, DI for Atrial Fibrillation Activity Restrictions/Additional Instructions: *You have been diagnosed with periodically lightheadedness, mild anemia and atrial fibrillation. I suggest she follow the primary care provider in regards to lightheadedness diagnosis findings. Labs suggest to alter with your cardiology appointment for next month. Please return to emergency room if any emergent concerns arise. [ ] *What to do: *Please continue to take your regular medications as directed. [ ] New medication prescriptions sent to your pharmacy: [ ] [ ] New medication written as a paper prescription [x] No new medications given *Please follow up with your primary care provider in 2-3 days, call for an appointment. Let them know you were seen in the Emergency Department and that we ask that you be seen in follow up. We will electronically transmit a record of today's note if your PCP is in our system *If you do not have a primary care provider please contact the [facility] Resource line at [phone]. They will ask some questions about your medical history and help get you set up with a doctor in the community. *Return to Emergency Department if you should have any new, worsening or concerning symptoms, such as [fever greater than 101 F, shaking chills, worsening pain, persistent vomiting or other bothersome symptoms] Prescriptions: No Action multivitamin [Multiple Vitamins] 1 EACH tablet 1 tab PO DAILY Qty: 0 cholecalciferol (vitamin D3) [Vitamin D3] 2,000 UNIT tablet 2,000 unit PO DAILY Qty: 0 finasteride 5 mg tablet 5 mg PO Q OTHER DAY Qty: 90 3RF Paxlovid (EUA) 300 mg (150 mg x 2)-100 mg tablets,dose pack See Rx Instructions PO .COMPLEX Qty: 30 0RF Rx Instructions: take TWO 150 mg tablets of nirmatrelvir with ONE 100 mg tablet of ritonavir twice daily for 5 days PO warfarin 5 mg tablet See Rx Instructions .ROUTE .COMPLEX Qty: 90 0RF Dose Instruction: Take 1/2 tablet daily except on and Mon take 1 or as directed by doctor ; Rx Instructions: Take 5mg Monday and Monday and 2.5mg all other days, or as directed. tamsulosin 0.4 mg capsule 0.4 mg PO ONCE Rx Instructions: 30 minutes following the same meal each day Iron High Potency 27 mg tablet 27 mg PO DAILY Label Comments: Iron High Potency 240mg (27mg iron) Ocuvite 30unit 5mg 150mg 1 cap PO DAILY metoprolol succinate 100 MG tablet extended release 24 hr 50 mg PO QAM Qty: 60 0RF metoprolol succinate [Toprol XL] 25 mg tablet extended release 24 hr 25 mg PO BEDTIME Referrals: Alejandro Pinto DO [Primary Care Provider] - Visit Report Forms: Patient Portal/API <Julita Hearn MD - Last Filed: 08/08/22 11:39> [facility] I was immediately available in the department for consultation throughout this patient's visit. I agree with documentation as above. Julita Hearn MD
[2022-08-06 14:20] LABS: Troponin I < 0.012 ng/mL (0.01-0.034)
--- NOTE | 2022-08-06 15:13 | PC.NURSE ---
pt states he's had symptoms on and off for 3 months but worse today.
[2022-08-06 15:46] LABS: Bacteria Urine Occasional (0-1); RBC Urine None Seen (0-5/HPF); WBC Urine 0-1/HPF (0-5/HPF)
[2022-08-06 15:53] LABS: COVID19 -Nasal RAPID Negative (Negative)
== END 2022-08-06 17:30 | disposition home or self-care (01) ==
PROVIDERS: Emergency Provider Physician Assistant; Family Provider Family Medicine; PCP Family Medicine
DX: I48.91 Unspecified atrial fibrillation (principal); R42 Dizziness and giddiness; R07.9 Chest pain, unspecified; D64.9 Anemia, unspecified; Z86.16 Personal history of COVID-19; Z20.822 Contact with and (suspected) exposure to COVID-19
CPT/HCPCS: 36415; 71045; 80053; 81003; 81015; 82550; 83690; 83735; 84484; 85025; 87086; 87635; 93005; 99284; C9803

== ENCOUNTER 2022-08-09 10:35 | Emergency (ER) | payer MEDICARE, OTHER, SELFPAY ==
[2022-07-06 10:06] VITALS: BMI 23.5
[2022-08-09 10:52] VITALS: BP 136/101; PULSE 91; RESP 16; TEMP 36.1; O2SAT 97; BMI 23.7
--- NOTE | 2022-08-09 10:55 | DI.RAD.S_ITS ---
PROCEDURE: XR CHEST 1V INDICATIONS: chest pain TECHNIQUE: One view of the chest was acquired. COMPARISON: [facility], CR, XR CHEST 1V, 08/06/2022, 13:39. FINDINGS: Surgical changes and devices: None. Lungs and pleura: There is persistent appearance of bibasilar coarsening. Blunting of the costophrenic angles are unchanged. Mediastinum: Mediastinal contours appear normal. Heart size is normal. Bones and chest wall: No suspicious bony lesions. Overlying soft tissues appear unremarkable. IMPRESSION: Bibasilar coarsening, unchanged which could represent dependent change/edema, atelectasis and/or developing pneumonia. Dictated by: Linda Hester M.D. on 08/09/2022 at 11:38 Approved by: Linda Hester M.D. on 08/09/2022 at 11:38
--- NOTE | 2022-08-09 10:56 | DI.CT.S_ITS ---
PROCEDURE: CT HEAD/BRAIN WO CON INDICATIONS: dizzy,lightheaded,blurry vision, warfarin TECHNIQUE: Noncontrast 4.5 mm thick angled axial sections acquired from the foramen magnum to the vertex, with coronal and sagittal reformats. For radiation dose reduction, the following was used: automated exposure control, adjustment of mA and/or kV according to patient size. COMPARISON: [facility], CT, CT HEAD/BRAIN WO CON, 07/02/2022, 12:16. FINDINGS: Image quality: Excellent. CSF spaces: Basal cisterns are patent. No extra-axial fluid collections. The ventricles are symmetric in size and shape. Brain: No intracranial bleeds or masses. There is cerebral volume loss for age, with resultant ventricular and sulcal prominence. There are periventricular and deep white matter chronic small vessel ischemic changes. There is intracranial internal carotid artery atherosclerosis. Skull and face: Calvarium and visualized facial bones appear intact, without suspicious lesions. Sinuses: Visualized sinuses and mastoids are clear. IMPRESSION: No acute intracranial finding. Dictated by: Bobby Nowak M.D. on 08/09/2022 at 11:14 Approved by: Bobby Nowak M.D. on 08/09/2022 at 11:15
[2022-08-09 11:13] LABS: Add Manual Diff / Slide Review NO; Basophils Absolute Auto 0 /uL (0-100); Basophils Percent Auto 0.8 % (0-2); Eosinophils Absolute Auto 100 /uL (0-450); Eosinophils Percent Auto 2.2 % (2-4); Hemoglobin 14.4 g/dL (13.5-17.5); Lymphocytes Absolute Auto 900 /uL (1100-4500); Lymphocytes Percent Auto 15.1 % (25-40); Mean Corpuscular HGB Conc 34.1 % (30-36); Mean Corpuscular Volume 90.9 fL (80-100); Monocytes Absolute Auto 600 /uL (0-900); Monocytes Percent Auto 9.8 % (3-14); Neutrophils Absolute Auto 4400 /uL (1500-7000); Neutrophils Percent Auto 72.1 % (50-75); Platelet Count 274 X10^3/uL (150-400); Red Blood Cell Count 4.63 X10^6/uL (4.5-5.9); Red Cell Distribution Width 14.9 % (11.6-14.8); White Blood Cell Count 6.1 X10^3/uL (4.5-11.0)
--- NOTE | 2022-08-09 11:14 | ED_ITS ---
HPI - Dizziness General Chief Complaint: Dizziness Stated Complaint: Light headed, blurred/double vision Time Seen by Provider: 08/09/22 11:11 History of Present Illness HPI Narrative: Patient is an 82-year-old male history of atrial fibrillation on warfarin presenting today for the 2nd time this week for ongoing dizziness. He says he feels a little dizzy and lightheaded. He has no chest pain or palpitations. He sometimes has shortness of breath. He has not fallen. He has no numbness tingling or weakness. He was seen evaluated here on August 06 had a workup but no head CT. Blood work was reassuring and he was overall discharge home. He says he still does not feel quite right. He has not fallen. He tried to follow up with primary care provider but is unable to do so until October. He is sometimes chilled but not feverish. Patient says he has had blurry vision, he says it has been ongoing for a while. He actually was seen by an tile shader last week who said he needed new glasses. His new glasses should be in bed and the week. He thought that his vision might be little bit worse today he has no loss of vision no loss of peripheral vision no blackening. Related Data Home Medications Medication Instructions Recorded Confirmed multivitamin (Multiple Vitamins 1 tab PO DAILY ##0 03/06/13 07/06/22 tablet) cholecalciferol (vitamin D3) 50 2,000 unit PO DAILY #0 tabs 08/03/16 07/06/22 mcg (2,000 unit) tablet (Vitamin D3) Iron High Potency 27 mg PO DAILY 04/09/19 07/06/22 Ocuvite 30unit 5mg 150mg 1 cap PO DAILY 04/09/19 07/06/22 metoprolol succinate 25 mg 25 mg PO BEDTIME 07/18/20 07/06/22 tablet,extended release 24 hr (Toprol XL) tamsulosin 0.4 mg capsule 0.4 mg PO ONCE 07/06/22 07/06/22 Previous Rx's Medication Instructions Recorded finasteride 5 mg tablet 5 mg PO Q OTHER DAY #90 tabs 11/17/21 metoprolol succinate 100 mg 50 mg PO QAM #60 tabs 06/29/22 tablet,extended release 24 hr nirmatrelvir 300 mg (150 mg See Rx Instructions PO .COMPLEX 07/13/22 x2)-ritonavir 100 mg tablet,dose #30 tabs pack(EUA) (Paxlovid) warfarin 5 mg tablet See Rx Instructions .Route 07/25/22 .COMPLEX #90 tabs Allergies Allergy/AdvReac Type Severity Reaction Status Date / Time No Known Drug Allergies Allergy Verified 08/06/22 13:32 Review of Systems Review of Systems Narrative: GENERAL: Denies chills, fatigue, malaise, fever, sweats, travel HEENT: Denies sinus pain, ear pain, sore throat, difficulty swallowing, neck pain RESPIRATORY: Denies dyspnea, cough, wheezing, hemoptysis, sputum. CARDIOVASCULAR: See HPI GASTROINTESTINAL: Denies nausea, vomiting, abdominal pain, diarrhea, constipation, melena. : Denies dysuria, frequency, incontinence, hematuria, urinary retention, flank pain. MUSCULOSKELETAL: Denies weakness, joint pain, or bony pain SKIN: No rash, no erythema, no pruritus NEUROLOGIC: + dizziness history PSYCHIATRIC: No concerning psychosocial issues. 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) Cervical somatic dysfunction Chronic atrial fibrillation (01/02/18) Chronic bilateral low back pain without sciatica Cranial somatic dysfunction Diplopia Elevated random blood glucose level Erectile dysfunction Essential hypertension (02/16/16) Fatigue Foot stiffness History of elevated PSA Incomplete emptying of bladder (02/16/16) Left arm weakness Pelvic somatic dysfunction Physician orders for life-sustaining treatment (POLST) form indicates patient wish for [id number]-oolfizfppol status Segmental and somatic dysfunction of lumbar region Segmental and somatic dysfunction of rib cage Segmental and somatic dysfunction of sacral region Segmental and somatic dysfunction of thoracic region Somatic dysfunction of both lower extremities Vitamin D deficiency Surgical History Hx of cholecystectomy Status post cholecystectomy Family History Mother CVA (cerebral vascular accident) Father Diabetes mellitus Brother Renal failure Social History marital status: number of children: 1 household members: none occupational status: previously employed Previous occupational history: [employer] Smoking Status: Former smoker alcohol intake: former caffeine: Yes Smoking Status: Former smoker alcohol intake frequency: 0-2 drinks per day Substance Use Type: does not use Exam Initial Vital Signs Initial Vital Signs: Vital Signs Temperature 97.0 F L 08/09/22 10:52 Pulse Rate 91 H 08/09/22 10:52 Respiratory Rate 16 08/09/22 10:52 Blood Pressure 136/101 H 08/09/22 10:52 Pulse Oximetry 97 08/09/22 10:52 Oxygen Delivery Method 08/09/22 10:52 GENERAL: Pleasant alert 82-year-old male no acute distress HEENT: Head atraumatic,EOMI, pupils reactive, face symmetric, moist mucous membranes CARDIOVASCULAR: Irregularly irregular RESPIRATORY: Breath sounds equal bilaterally, no wheezes rales or rhonchi. ABDOMEN: Soft, nontender. Normoactive bowel sounds all 4 quadrants. No guarding or rebound. EXTREMITIES: Normal range of motion, no clubbing or edema. Neurovascularly intact NEUROLOGICAL: Alert and oriented x4.Normal gait and speech. Cranial nerves II through XII grossly intact. Good [id number]-fl-mvcf, good [id number]-[id number], strength equal bilaterally, no dysarthria or aphasia, sensation in tact to soft touch bilaterally, no visual changes, no facial droop SKIN: Warm, dry, no laceration, no petechiae, no rashes or lesions. Scores NIH Stroke Scale Level of Conciousness: Alert, keenly responsive Ask month/age: Answers both questions correctly. Open/close eyes, close hand: Performs both tasks correctly Best gaze horizontal: Normal Visual tang: No visual loss Facial palsy: Normal symetrical movement Left arm drift: No drift for full 10 sec Right arm drift: No drift for full 10 sec Left leg drift: No drift for full 5 sec Right leg drift: No drift for full 5 sec Limb ataxia: Absent Sensory on face/arms/legs: Normal, no sensory loss Best language: No aphasia, normal Dysarthria: Normal Extinction or inattention: No abnormality Total NIH Stroke scale score: 0 Course Orders Ordered: ED Orders 08/09/22 10:55 XR chest 1V Stat EKG-12 Lead Stat 08/09/22 10:56 CT head/brain wo con Stat 08/09/22 11:00 Complete Blood Count AUTO DIFF Stat Comprehensive Metabolic Panel Stat Lipase Stat Magnesium Stat Partial Thromboplastin Time Stat Prothrombin Time INR Stat Troponin & CK Cardiac Panel Stat Vital Signs Vital signs: Vital Signs - 8 hr 08/09/22 12:19 Pulse Rate 88 Respiratory Rate 16 Blood Pressure 128/74 Pulse Oximetry 98 Oxygen Delivery Method Room Air MDM - Dizziness Lab Data Result diagrams: 08/09/22 11:00 08/09/22 11:00 Labs: Lab Results 08/09/22 08/09/22 08/09/22 Range/Units 11:00 11:00 11:00 WBC 6.1 (4.5-11.0) X10^3/uL RBC 4.63 (4.5-5.9) X10^6/uL Hgb 14.4 (13.5-17.5) g/dL Hct 42.0 (41-53) % MCV 90.9 (80-100) fL MCH 31.0 (26-34) PG MCHC 34.1 (30-36) % RDW 14.9 H (11.6-14.8) % Plt Count 274 (150-400) X10^3/uL Neut % (Auto) 72.1 (50-75) % Lymph % (Auto) 15.1 L (25-40) % Mcduffie % (Auto) 9.8 (3-14) % Eos % (Auto) 2.2 (2-4) % Baso % (Auto) 0.8 (0-2) % Neut # (Auto) 4400 (7433-9602) /uL Lymph # (Auto) 900 L (5120-7955) /uL Mcduffie # (Auto) 600 (0-900) /uL Eos # (Auto) 100 (0-450) /uL Baso # (Auto) 0 (0-100) /uL PT 30.8 H (10.1-12.7) SECONDS INR 2.7 H (0.9-1.3) APTT 45 H (26-36) SECONDS Sodium 138 (137-145) mmol/L Potassium 4.3 (3.4-5.1) mmol/L Chloride 103 (98-107) mmol/L Carbon Dioxide 27 (22-32) mmol/L BUN 17 (9-20) mg/dL Creatinine 1.02 (0.66-1.25) mg/dL Estimated GFR > 60 (>60) mL/min BUN/Creatinine Ratio 16.7 (6-22) Glucose 96 (80-110) mg/dL Calcium 8.4 (8.4-10.2) mg/dL Magnesium 2.2 (1.6-2.3) mg/dL Total Bilirubin 1.1 (0.2-1.3) mg/dL AST 25 (17-59) IU/L ALT 22 (<50) IU/L Alkaline Phosphatase 79 (38-126) U/L Total Creatine Kinase 41 L (55-170) U/L CK-MB (CK-2) TNP CK-MB (CK-2) Rel Index TNP Troponin I < 0.012 (0.01-0.034) ng/mL Total Protein 7.0 (6.3-8.2) g/dL Albumin 3.7 (3.5-5.0) g/dL Globulin 3.3 (1.7-4.1) g/dL Albumin/Globulin Ratio 1.1 (1.0-2.8) Lipase 294 (23-300) U/L Imaging Data CT scan - head: Radiologist's Impression: Signed Patient: Nestor Mercedes MR#: [id number] : 1940 Acct:[id number] Age/Sex: 82 / M Date of Service: 08/09/22 Loc: Accession Number: [id number] ?? Procedure: CT head/brain wo con Ordering Provider: Cleopatra Wick D.O. PROCEDURE:? CT HEAD/BRAIN WO CON ? INDICATIONS:? dizzy,lightheaded,blurry vision, warfarin ? TECHNIQUE:? Noncontrast 4.5 mm thick angled axial sections acquired from the foramen magnum to the vertex, with coronal and sagittal reformats.? For radiation dose reduction, the following was used:? automated exposure control, adjustment of mA and/or kV according to patient size.? ? COMPARISON:? [facility], CT, CT HEAD/BRAIN WO CON, 07/02/2022, 12:16. ? FINDINGS:? Image quality:? Excellent.? ? CSF spaces:? Basal cisterns are patent.? No extra-axial fluid collections.? The ventricles are symmetric in size and shape.? ? Brain:? No intracranial bleeds or masses.? There is cerebral volume loss for age, with resultant ventricular and sulcal prominence.? There are periventricular and deep white matter chronic small vessel ischemic changes.? There is intracranial internal carotid artery atherosclerosis.? ? Skull and face:? Calvarium and visualized facial bones appear intact, without suspicious lesions.? ? Sinuses:? Visualized sinuses and mastoids are clear.? ? IMPRESSION:? No acute intracranial finding. ? ? Dictated by: Bobby Nowak M.D. on 08/09/2022 at 11:14 ? ? Chest x-ray: Radiologist's Impression: Signed Patient: Nestor Mercedes MR#: [id number] : 1940 Acct:[id number] Age/Sex: 82 / M Date of Service: 08/09/22 Loc: ED Accession Number: [id number] ?? Procedure: XR chest 1V Ordering Provider: Cleopatra Wick D.O. PROCEDURE:? XR CHEST 1V ? INDICATIONS:? chest pain ? TECHNIQUE:? One view of the chest was acquired.? ? COMPARISON:? [facility], , XR CHEST 1V, 08/06/2022, 13:39. ? FINDINGS:? ? Surgical changes and devices:? None.? ? Lungs and pleura:? There is persistent appearance of bibasilar coarsening.? Blunting of the costophrenic angles are unchanged. ? Mediastinum:? Mediastinal contours appear normal.? Heart size is normal.? ? Bones and chest wall:? No suspicious bony lesions.? Overlying soft tissues appear unremarkable.? ? IMPRESSION:? Bibasilar coarsening, unchanged which could represent dependent change/edema, atelectasis and/or developing pneumonia. ? ? Dictated by: Linda Hester M.D. on 08/09/2022 at 11:38 ? ? Approved by: Linda Hester M.D. on 08/09/2022 at 11:38 ? ECG Data Interpretation: Atrial fibrillation rate [address] changes similar to previous MDM Narrative Medical decision making narrative: Patient is here for ongoing dizziness. His rate is controlled in chronic AFib blood work is reassuring. CT is negative no focal deficits. Patient is here today for worsening blurry vision which was confirmed that he needed new glasses by an vision specialist, and new glasses should be here later this week. Likely the cause of his worsening vision change. At this time patient overall appears well and may be discharged and followed up as an outpatient Discharge Plan Departure Patient Disposition: Home Clinical Impression: Blurred vision, Dizziness Instructions: DI for Visual Field Disturbances Activity Restrictions/Additional Instructions: *You have been diagnosed with vision changes *What to do: At this time I think some your symptoms are related to your vision changes. I hope that your new glasses will help most of your symptoms *Continue to take medications as directed *Follow up with your primary care provider in 2-3 days or call [phone] *Return to ER if you should have increasing falls dizziness headache or any new, worsening or concerning symptoms Prescriptions: No Action multivitamin [Multiple Vitamins] 1 EACH tablet 1 tab PO DAILY Qty: 0 cholecalciferol (vitamin D3) [Vitamin D3] 2,000 UNIT tablet 2,000 unit PO DAILY Qty: 0 finasteride 5 mg tablet 5 mg PO Q OTHER DAY Qty: 90 3RF Paxlovid (EUA) 300 mg (150 mg x 2)-100 mg tablets,dose pack See Rx Instructions PO .COMPLEX Qty: 30 0RF Rx Instructions: take TWO 150 mg tablets of nirmatrelvir with ONE 100 mg tablet of ritonavir twice daily for 5 days PO warfarin 5 mg tablet See Rx Instructions .ROUTE .COMPLEX Qty: 90 0RF Dose Instruction: Take 1/2 tablet daily except on and Sat take 1 or as directed by doctor ; Rx Instructions: Take 5mg Monday and Monday and 2.5mg all other days, or as directed. tamsulosin 0.4 mg capsule 0.4 mg PO ONCE Rx Instructions: 30 minutes following the same meal each day Iron High Potency 27 mg tablet 27 mg PO DAILY Label Comments: Iron High Potency 240mg (27mg iron) Ocuvite 30unit 5mg 150mg 1 cap PO DAILY metoprolol succinate 100 MG tablet extended release 24 hr 50 mg PO QAM Qty: 60 0RF metoprolol succinate [Toprol XL] 25 mg tablet extended release 24 hr 25 mg PO BEDTIME Referrals: Alejandro Pinto DO [Primary Care Provider] - Visit Report Forms: Patient Portal/API
[2022-08-09 11:20] LABS: INR 2.7 (0.9-1.3); Prothrombin Time 30.8 SECONDS (10.1-12.7)
[2022-08-09 11:22] LABS: PTT Partial Thromboplastin Tim 45 SECONDS (26-36)
[2022-08-09 11:24] LABS: Alanine Aminotransferase 22 IU/L (<50); Albumin 3.7 g/dL (3.5-5.0); Albumin Globulin Ratio 1.1 (1.0-2.8); Alkaline Phosphatase 79 U/L (38-126); Aspartate Aminotransferase 25 IU/L (17-59); BUN Creatinine Ratio 16.7 (6-22); Bilirubin Total 1.1 mg/dL (0.2-1.3); Blood Urea Nitrogen 17 mg/dL (9-20); Calcium 8.4 mg/dL (8.4-10.2); Carbon Dioxide 27 mmol/L (22-32); Chloride 103 mmol/L (98-107); Creatine Kinase 41 U/L (55-170); Estimated Glomerular Filt Rate > 60 mL/min (>60); Globulin 3.3 g/dL (1.7-4.1); Glucose 96 mg/dL (80-110); HEMOLYSIS < 15 (0-50); Lipase 294 U/L (23-300); Magnesium 2.2 mg/dL (1.6-2.3); Potassium 4.3 mmol/L (3.4-5.1); Sodium 138 mmol/L (137-145)
[2022-08-09 11:36] LABS: Troponin I < 0.012 ng/mL (0.01-0.034)
[2022-08-09 12:19] VITALS: BP 128/74; PULSE 88; RESP 16; O2SAT 98
== END 2022-08-09 12:31 | disposition home or self-care (01) ==
PROVIDERS: Emergency Provider Emergency Medicine; Family Provider Family Medicine; PCP Family Medicine
DX: H53.8 Other visual disturbances (principal); R42 Dizziness and giddiness; R06.02 Shortness of breath; R07.9 Chest pain, unspecified; I48.20 Chronic atrial fibrillation, unspecified; Z79.01 Long term (current) use of anticoagulants
CPT/HCPCS: 36415; 70450; 71045; 80053; 82550; 83690; 83735; 84484; 85025; 85610; 85730; 93005; 99284

== ENCOUNTER 2022-08-19 10:21 | Emergency (ER) | payer MEDICARE, OTHER, SELFPAY ==
[2022-07-06 10:06] VITALS: BMI 23.5
[2022-08-19 10:42] VITALS: BP 167/84; PULSE 82; RESP 18; TEMP 36.8; O2SAT 98
--- NOTE | 2022-08-19 10:59 | DI.US.S_ITS ---
PROCEDURE: US SCROTUM INDICATIONS: LEFT SCROTAL PAIN TECHNIQUE: Real-time scanning was performed of the scrotum and testicles, with image documentation. Color and pulse Doppler interrogation was performed of both testicles. COMPARISON: [facility], , TESTICLE IMAGING, 04/29/2007, 18:06. FINDINGS: Right: Testicle is normal in size at 2.7 x 2.1 x 2.3 cm, and homogenous in echotexture. Epididymis is normal in overall size and morphology. Moderate hydrocele. No varicoceles. Overlying scrotal skin is normal in thickness. Left: Testicle is normal in size at 3.1 x 2.2 x 2.3 cm, and homogeneous in echotexture. Epididymis is normal in overall size and morphology. Trace hydrocele. No varicoceles. Overlying scrotal skin is normal in thickness. Doppler: Color and pulse Doppler demonstrate normal and symmetric arterial flow in both testicles. IMPRESSION: 1. A cause for left school called pain is not identified. No findings to suggest testicular torsion. No testicular mass. 2. Normal epididymis bilaterally. No findings to suggest epididymitis. 3. Moderate right hydrocele. Dictated by: Waleska Lux M.D. on 08/19/2022 at 11:57 Approved by: Waleska Lux M.D. on 08/19/2022 at 12:00
--- NOTE | 2022-08-19 10:59 | ED_ITS ---
HPI - General Adult General Chief complaint: Urogenital-Male Stated complaint: Shocks of pain in left testicle Time Seen by Provider: 08/19/22 10:54 Source: patient Mode of arrival: Ambulatory History of Present Illness HPI narrative: Patient is an 82-year-old male who is here for evaluation of left-sided testicular pain. He states the symptoms started last evening after he got up in the middle the night to urinate. He states he urinated without any problems as when he got back into bed. He states that it was a very sharp electrical like pain into his left testicle that lasted for seconds. It does seem to come and go and has occurred multiple times since then. He is had no change in his urination. No change in bowel habits. No prior testicular surgeries. He contacted his urologist who can see him for several weeks. He went to the walk- in clinic who told him to come to the emergency department for evaluation. Related Data Home Medications Medication Instructions Recorded Confirmed multivitamin (Multiple Vitamins 1 tab PO DAILY ##0 03/06/13 07/06/22 tablet) cholecalciferol (vitamin D3) 50 2,000 unit PO DAILY #0 tabs 08/03/16 07/06/22 mcg (2,000 unit) tablet (Vitamin D3) Iron High Potency 27 mg PO DAILY 04/09/19 07/06/22 Ocuvite 30unit 5mg 150mg 1 cap PO DAILY 04/09/19 07/06/22 metoprolol succinate 25 mg 25 mg PO BEDTIME 07/18/20 07/06/22 tablet,extended release 24 hr (Toprol XL) tamsulosin 0.4 mg capsule 0.4 mg PO ONCE 07/06/22 07/06/22 Previous Rx's Medication Instructions Recorded finasteride 5 mg tablet 5 mg PO Q OTHER DAY #90 tabs 11/17/21 metoprolol succinate 100 mg 50 mg PO QAM #60 tabs 06/29/22 tablet,extended release 24 hr nirmatrelvir 300 mg (150 mg See Rx Instructions PO .COMPLEX 07/13/22 x2)-ritonavir 100 mg tablet,dose #30 tabs pack(EUA) (Paxlovid) warfarin 5 mg tablet See Rx Instructions .Route 07/25/22 .COMPLEX #90 tabs Allergies Allergy/AdvReac Type Severity Reaction Status Date / Time No Known Drug Allergies Allergy Verified 08/06/22 13:32 Review of Systems Review of Systems ROS Unobtainable: All systems reviewed & are unremarkable except as noted in HPI and below 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) Cervical somatic dysfunction Chronic atrial fibrillation (01/02/18) Chronic bilateral low back pain without sciatica Cranial somatic dysfunction Diplopia Elevated random blood glucose level Erectile dysfunction Essential hypertension (02/16/16) Fatigue Foot stiffness History of elevated PSA Incomplete emptying of bladder (02/16/16) Left arm weakness Pelvic somatic dysfunction Physician orders for life-sustaining treatment (POLST) form indicates patient wish for em-mnk-guozlebkmsz status Segmental and somatic dysfunction of lumbar region Segmental and somatic dysfunction of rib cage Segmental and somatic dysfunction of sacral region Segmental and somatic dysfunction of thoracic region Somatic dysfunction of both lower extremities Vitamin D deficiency Surgical History Hx of cholecystectomy Status post cholecystectomy Family History Mother CVA (cerebral vascular accident) Father Diabetes mellitus Brother Renal failure Social History marital status: number of children: 1 household members: none occupational status: previously employed Previous occupational history: [employer] Smoking Status: Former smoker alcohol intake: former caffeine: Yes Smoking Status: Former smoker alcohol intake frequency: 0-2 drinks per day Substance Use Type: does not use Exam Initial Vital Signs Initial Vital Signs: Vital Signs Temperature 98.2 F 08/19/22 10:42 Pulse Rate 82 08/19/22 10:42 Respiratory Rate 18 08/19/22 10:42 Blood Pressure 167/84 H 08/19/22 10:42 Pulse Oximetry 98 08/19/22 10:42 Oxygen Delivery Method 08/19/22 10:42 HENMT Head: normal to inspection and normocephalic Resp Effort & Inspection: normal respiratory effort Cardio Rate: regular rate GI Inspection: normal to inspection Palpation: soft, No firm, No guarding and tender (Some mild lower abdominal tenderness) Other: Uncircumcised No inguinal hernias felt Bilateral testes are tender to palpation. Normal testicular lie. No masses. Skin General: no rashes or lesions noted Neuro General: patient alert, patient awake and moves all extremities Extrem General: normal to inspection and capillary refill normal Psych Appearance: grossly normal and well kempt Course Orders Ordered: ED Orders 08/19/22 10:59 US scrotum Stat 08/19/22 11:43 Urine Microscopic Stat Vital Signs Vital signs: Vital Signs - 8 hr 08/19/22 10:42 08/19/22 11:10 08/19/22 11:11 Temperature 98.2 F Pulse Rate 82 82 Respiratory Rate 18 23 Blood Pressure 167/84 H 154/88 H Pulse Oximetry 98 Oxygen Delivery Method Room Air 08/19/22 11:11 Temperature Pulse Rate 83 Respiratory Rate 20 Blood Pressure Pulse Oximetry 98 Oxygen Delivery Method Room Air Medical Decision Making Lab Data Labs: Urine Dip Bedside Urine Glucose Negative Bedside Urine Bilirubin - Negative Bedside Urine Ketone - Negative Bedside Urine Occult Blood - Negative Bedside Urine Protein - Negative Bedside Urine Urobilinogen - Negative Bedside Urine Nitrite - Negative Bedside Urine Leukocytes +/- 15 Esterase Point of care testing: Urine Dip Bedside Urine Glucose Negative Bedside Urine Bilirubin - Negative Bedside Urine Ketone - Negative Bedside Urine Occult Blood - Negative Bedside Urine Protein - Negative Bedside Urine Urobilinogen - Negative Bedside Urine Nitrite - Negative Bedside Urine Leukocytes +/- 15 Esterase Imaging Data scrotal US: Radiologist's Impression: [place] [id number] Ultrasound Report Signed Patient: Nestor Mercedes MR#: [id number] : 1940 Acct:[id number] Age/Sex: 82 / M Date of Service: 08/19/22 Loc: ED Accession Number: [id number] ?? Procedure: US scrotum Ordering Provider: Mohan Riggins D.O. PROCEDURE:? US SCROTUM ? INDICATIONS:? LEFT SCROTAL PAIN ? TECHNIQUE:? Real-time scanning was performed of the scrotum and testicles, with image documentation.? Color and pulse Doppler interrogation was performed of both testicles.? ? COMPARISON:? [facility], [place], TESTICLE IMAGING, 04/29/2007, 18:06. ? FINDINGS:? ? Right:? Testicle is normal in size at 2.7 x 2.1 x 2.3 cm, and homogenous in echotexture.? Epididymis is normal in overall size and morphology.? Moderate hydrocele.? No varicoceles.? Overlying scrotal skin is normal in thickness.? ? Left:? Testicle is normal in size at 3.1 x 2.2 x 2.3 cm, and homogeneous in echotexture.? Epididymis is normal in overall size and morphology.? Trace hydrocele.? No varicoceles.? Overlying scrotal skin is normal in thickness.? ? Doppler:? Color and pulse Doppler demonstrate normal and symmetric arterial flow in both testicles.? ? IMPRESSION:? ? 1. A cause for left school called pain is not identified.? No findings to suggest testicular torsion.? No testicular mass.? 2. Normal epididymis bilaterally.? No findings to suggest epididymitis. 3.? Moderate right hydrocele.? ? ? Dictated by: Waleska Lux M.D. on 08/19/2022 at 11:57 ? ? Approved by: Waleska Lux M.D. on 08/19/2022 at 12:00?? MDM Narrative Medical decision making narrative: Patient has a benign exam. Ultrasound shows no signs of torsion. No hernias were felt. No indication of epididymitis. No fevers. Urinalysis is unremarkable. Unsure the exact etiology but does not appear to be a surgical/urgent/infectious issue. I did discuss this with him. He can take Tylenol for discomfort. He was given return precautions. He expressed understanding and agreement. Discharge Plan Departure Patient Disposition: Home Clinical Impression: Pain in left testicle Instructions: DI for Testicular Pain Activity Restrictions/Additional Instructions: Continue to take all of your medications as directed. You can take Tylenol for any discomfort. I also recommend supportive clothing. Contact your primary doctor for a follow-up. Return to the emergency department for any new or worsening symptoms Prescriptions: No Action multivitamin [Multiple Vitamins] 1 EACH tablet 1 tab PO DAILY Qty: 0 cholecalciferol (vitamin D3) [Vitamin D3] 2,000 UNIT tablet 2,000 unit PO DAILY Qty: 0 finasteride 5 mg tablet 5 mg PO Q OTHER DAY Qty: 90 3RF Paxlovid (EUA) 300 mg (150 mg x 2)-100 mg tablets,dose pack See Rx Instructions PO .COMPLEX Qty: 30 0RF Rx Instructions: take TWO 150 mg tablets of nirmatrelvir with ONE 100 mg tablet of ritonavir twice daily for 5 days PO warfarin 5 mg tablet See Rx Instructions .ROUTE .COMPLEX Qty: 90 0RF Dose Instruction: Take 1/2 tablet daily except on and Sat take 1 or as directed by doctor ; Rx Instructions: Take 5mg Monday and Monday and 2.5mg all other days, or as directed. tamsulosin 0.4 mg capsule 0.4 mg PO ONCE Rx Instructions: 30 minutes following the same meal each day Iron High Potency 27 mg tablet 27 mg PO DAILY Label Comments: Iron High Potency 240mg (27mg iron) Ocuvite 30unit 5mg 150mg 1 cap PO DAILY metoprolol succinate 100 MG tablet extended release 24 hr 50 mg PO QAM Qty: 60 0RF metoprolol succinate [Toprol XL] 25 mg tablet extended release 24 hr 25 mg PO BEDTIME Referrals: Alejandro Pinto DO [Primary Care Provider] -
[2022-08-19 11:10] VITALS: PULSE 82; RESP 23
[2022-08-19 11:11] VITALS: BP 154/88; PULSE 83; RESP 20; O2SAT 98
[2022-08-19 11:30] VITALS: BP 127/75
[2022-08-19 12:00] VITALS: PULSE 84; RESP 20; O2SAT 97
[2022-08-19] MEDS: ACETAMINOPHEN 325 MG TABLET 650 MG PO (12:15)
[2022-08-19 12:40] LABS: Bacteria Urine None Seen; Culture Indicated Urine Specimen Cultured; RBC Urine None Seen (0-5/HPF); Squamous Epithelial Cell Urine None Seen (0-5/HPF); WBC Urine 1-5/HPF (0-5/HPF)
== END 2022-08-19 12:30 | disposition home or self-care (01) ==
PROVIDERS: Emergency Provider Emergency Medicine; Family Provider Family Medicine; PCP Family Medicine
DX: N50.812 Left testicular pain (principal)
CPT/HCPCS: 76870; 81003; 81015; 87086; 99283

== ENCOUNTER → 2022-08-23 08:59 | Outpatient (CLI) | payer MEDICARE, OTHER, SELFPAY ==
[2022-07-06 10:06] VITALS: BMI 23.5
[2022-08-23 10:32] LABS: Prothrombin Time 23.5 SECONDS (10.1-12.7)
== END ==
PROVIDERS: Family Provider Family Medicine; PCP Family Medicine; Referring Provider Family Medicine; Visit Provider Family Medicine
DX: Z79.01 Long term (current) use of anticoagulants (principal); I48.20 Chronic atrial fibrillation, unspecified
CPT/HCPCS: 36415; 85610

== ENCOUNTER → 2022-09-26 11:14 | Outpatient (CLI) | payer MEDICARE, OTHER, SELFPAY ==
[2022-07-06 10:06] VITALS: BMI 23.5
[2022-09-26 13:04] LABS: INR 2.5 (0.9-1.3)
== END ==
PROVIDERS: Family Provider Family Medicine; PCP Family Medicine; Referring Provider Family Medicine; Visit Provider Family Medicine
DX: I48.91 Unspecified atrial fibrillation (principal); Z79.01 Long term (current) use of anticoagulants
CPT/HCPCS: 36415; 85610

== ENCOUNTER 2022-10-20 00:24 | Emergency (ER) | payer MEDICARE, OTHER, SELFPAY ==
[2022-07-06 10:06] VITALS: BMI 23.5
[2022-10-20 00:46] VITALS: BP 117/73; PULSE 84; RESP 18; TEMP 36.3; O2SAT 98; BMI 24.4
--- NOTE | 2022-10-20 01:48 | ED.GENADULT ---
HPI - General Adult General Chief complaint: Abdominal Pain Stated complaint: ABD PAIN Time Seen by Provider: 10/20/22 01:12 Source: patient Mode of arrival: Ambulatory History of Present Illness HPI narrative: 82-year-old gentleman with history of severe aortic stenosis, atrial fibrillation, anticoagulated on warfarin, BPH, who presents complaining of acute onset left lower quadrant pain at 6:00 p.m. tonight. He notes he had a normal bowel movement and was feeling absolutely normal at 5:00 p.m.. No recent fevers, cough, chills. He has atrial fibrillation but no increased to palpitations, no nausea or vomiting. Not complaining of headaches. He states he is never had similar pain and describes it as a significant deep constant type pain. There is no dysuria, testicular pain or flank pain. Related Data Home Medications Medication Instructions Recorded Confirmed multivitamin (Multiple Vitamins 1 tab PO DAILY ##0 03/06/13 10/16/22 tablet) cholecalciferol (vitamin D3) 50 2,000 unit PO DAILY #0 tabs 08/03/16 10/16/22 mcg (2,000 unit) tablet (Vitamin D3) Iron High Potency 27 mg PO DAILY 04/09/19 10/16/22 Ocuvite 30unit 5mg 150mg 1 cap PO DAILY 04/09/19 10/16/22 metoprolol succinate 25 mg 25 mg PO BEDTIME 07/18/20 10/16/22 tablet,extended release 24 hr (Toprol XL) tamsulosin 0.4 mg capsule 0.4 mg PO ONCE 07/06/22 10/16/22 Previous Rx's Medication Instructions Recorded finasteride 5 mg tablet 5 mg PO Q OTHER DAY #90 tabs 11/17/21 metoprolol succinate 100 mg 50 mg PO QAM #60 tabs 06/29/22 tablet,extended release 24 hr nirmatrelvir 300 mg (150 mg See Rx Instructions PO .COMPLEX 07/13/22 x2)-ritonavir 100 mg tablet,dose #30 tabs pack(EUA) (Paxlovid) warfarin 5 mg tablet See Rx Instructions .Route 07/25/22 .COMPLEX #90 tabs amoxicillin 875 mg-potassium 1 tab PO BID #14 tabs 10/20/22 clavulanate 125 mg tablet Allergies Allergy/AdvReac Type Severity Reaction Status Date / Time No Known Drug Allergies Allergy Verified 10/16/22 15:50 Review of Systems Review of Systems Narrative: Remainder of complete review of systems is otherwise unremarkable except for that included in the HPI. 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) Cervical somatic dysfunction Chronic atrial fibrillation (01/02/18) Chronic bilateral low back pain without sciatica Cranial somatic dysfunction Diplopia Elevated random blood glucose level Erectile dysfunction Essential hypertension (02/16/16) Fatigue Foot stiffness History of elevated PSA Incomplete emptying of bladder (02/16/16) Insomnia Left arm weakness Pelvic somatic dysfunction Physician orders for life-sustaining treatment (POLST) form indicates patient wish for [id number] status Segmental and somatic dysfunction of lumbar region Segmental and somatic dysfunction of rib cage Segmental and somatic dysfunction of sacral region Segmental and somatic dysfunction of thoracic region Somatic dysfunction of both lower extremities Vitamin D deficiency Surgical History Hx of cholecystectomy Status post cholecystectomy Family History Mother CVA (cerebral vascular accident) Father Diabetes mellitus Brother Renal failure Social History marital status: number of children: 1 household members: none occupational status: previously employed Previous occupational history: [employer] Smoking Status: Former smoker alcohol intake: former caffeine: Yes Smoking Status: Former smoker alcohol intake frequency: 0-2 drinks per day Substance Use Type: does not use Exam Initial Vital Signs Initial Vital Signs: Vital Signs Temperature 97.3 F L 10/20/22 00:46 Pulse Rate 84 10/20/22 00:46 Respiratory Rate 18 10/20/22 00:46 Blood Pressure 117/73 10/20/22 00:46 Pulse Oximetry 98 10/20/22 00:46 Oxygen Delivery Method 10/20/22 00:46 General: Healthy appearing, in no acute distress. Able to give a complete and coherent history. Well-nourished well-developed HEENT: Moist mucous membranes, normal sclera with reactive pupils, Neck: No JVD, supple Respiratory: Lungs are clear to auscultation, no wheezing no rales no rhonchi. Full and symmetrical air movement Cardiac: irregular with 4/6 murmur Abdomen: Soft, mildly distended, hypoactive bowel tones moderate left lower quadrant tenderness with mild peritoneal signs Skin: Warm and dry, no rashes Neurologic: Grossly neurologically intact with no obvious asymmetries or abnormalities Extremities: No trauma, well perfused, no lower extremity edema Psych: Cooperative, appropriate insight and affect Course Orders Ordered: ED Orders 10/20/22 00:58 EKG-12 Lead Stat 10/20/22 01:45 Complete Blood Count AUTO DIFF Stat Comprehensive Metabolic Panel Stat Lipase Stat PT [Prothrombin Time INR] Stat 10/20/22 01:53 Urine Culture Stat Urine Microscopic Stat 10/20/22 01:59 CT abdomen pelvis w con Stat Ondansetron HCl (Ondansetron 4 Mg Odt) 4 mg PO NOW PRN PRN Reason: Nausea And Vomiting Ondansetron HCl (Ondansetron 4 Mg/2 Ml Inj) 4 mg IV NOW PRN PRN Reason: Nausea And Vomiting Vital Signs Vital signs: Vital Signs - 8 hr 10/20/22 00:46 Temperature 97.3 F L Pulse Rate 84 Respiratory Rate 18 Blood Pressure 117/73 Pulse Oximetry 98 Oxygen Delivery Method Room Air Medical Decision Making Lab Data Result diagrams: 10/20/22 01:45 10/20/22 01:45 Labs: Lab Results 10/20/22 10/20/22 10/20/22 Range/Units 01:45 01:45 01:45 WBC 7.3 (4.5-11.0) X10^3/uL RBC 4.63 (4.5-5.9) X10^6/uL Hgb 13.8 (13.5-17.5) g/dL Hct 42.3 (41-53) % MCV 91.2 (80-100) fL MCH 29.7 (26-34) PG MCHC 32.6 (30-36) % RDW 14.4 (11.6-14.8) % Plt Count 249 (150-400) X10^3/uL Neut % (Auto) 70.8 (50-75) % Lymph % (Auto) 15.3 L (25-40) % [place] % (Auto) 11.3 (3-14) % Eos % (Auto) 2.0 (2-4) % Baso % (Auto) 0.6 (0-2) % Neut # (Auto) 5200 (1343-1937) /uL Lymph # (Auto) 1100 (6630-0953) /uL [place] # (Auto) 800 (0-900) /uL Eos # (Auto) 100 (0-450) /uL Baso # (Auto) 0 (0-100) /uL PT 33.5 H (10.1-12.7) SECONDS INR 2.9 H (0.9-1.3) Sodium 137 (137-145) mmol/L Potassium 4.3 (3.4-5.1) mmol/L Chloride 106 (98-107) mmol/L Carbon Dioxide 26 (22-32) mmol/L BUN 22 H (9-20) mg/dL Creatinine 1.22 (0.66-1.25) mg/dL Estimated GFR 58 L (>60) mL/min BUN/Creatinine Ratio 18.0 (6-22) Glucose 96 (80-110) mg/dL Calcium 8.1 L (8.4-10.2) mg/dL Total Bilirubin 1.6 H (0.2-1.3) mg/dL AST 22 (17-59) IU/L ALT 23 (<50) IU/L Alkaline Phosphatase 79 (38-126) U/L Total Protein 6.4 (6.3-8.2) g/dL Albumin 3.6 (3.5-5.0) g/dL Globulin 2.8 (1.7-4.1) g/dL Albumin/Globulin Ratio 1.3 (1.0-2.8) Lipase 267 (23-300) U/L Urine RBC (0-5/HPF) Urine WBC (0-5/HPF) Urine Bacteria (None) Micro UA Comment 10/20/22 Range/Units 01:53 WBC (4.5-11.0) X10^3/uL RBC (4.5-5.9) X10^6/uL Hgb (13.5-17.5) g/dL Hct (41-53) % MCV (80-100) fL MCH (26-34) PG MCHC (30-36) % RDW (11.6-14.8) % Plt Count (150-400) X10^3/uL Neut % (Auto) (50-75) % Lymph % (Auto) (25-40) % [place] % (Auto) (3-14) % Eos % (Auto) (2-4) % Baso % (Auto) (0-2) % Neut # (Auto) (9830-3897) /uL Lymph # (Auto) (8002-0571) /uL [place] # (Auto) (0-900) /uL Eos # (Auto) (0-450) /uL Baso # (Auto) (0-100) /uL PT (10.1-12.7) SECONDS INR (0.9-1.3) Sodium (137-145) mmol/L Potassium (3.4-5.1) mmol/L Chloride (98-107) mmol/L Carbon Dioxide (22-32) mmol/L BUN (9-20) mg/dL Creatinine (0.66-1.25) mg/dL Estimated GFR (>60) mL/min BUN/Creatinine Ratio (6-22) Glucose (80-110) mg/dL Calcium (8.4-10.2) mg/dL Total Bilirubin (0.2-1.3) mg/dL AST (17-59) IU/L ALT (<50) IU/L Alkaline Phosphatase (38-126) U/L Total Protein (6.3-8.2) g/dL Albumin (3.5-5.0) g/dL Globulin (1.7-4.1) g/dL Albumin/Globulin Ratio (1.0-2.8) Lipase (23-300) U/L Urine RBC 1-5/hpf (0-5/HPF) Urine WBC 0-1/hpf (0-5/HPF) Urine Bacteria None seen (None) Micro UA Comment * Urine Dip Bedside Urine Glucose Negative Bedside Urine Bilirubin - Negative Bedside Urine Ketone - Negative Urine Specific [place] 1.015 Bedside Urine Occult Blood +/- Bedside Urine pH 6.5 Bedside Urine Protein - Negative Bedside Urine Urobilinogen - Negative Bedside Urine Nitrite - Negative Bedside Urine Leukocytes - Negative Esterase Point of care testing: Urine Dip Bedside Urine Glucose Negative Bedside Urine Bilirubin - Negative Bedside Urine Ketone - Negative Urine Specific [place] 1.015 Bedside Urine Occult Blood +/- Bedside Urine pH 6.5 Bedside Urine Protein - Negative Bedside Urine Urobilinogen - Negative Bedside Urine Nitrite - Negative Bedside Urine Leukocytes - Negative Esterase Imaging Data CT scan - abdomen/pelvis: Radiologist's Impression: Subtle uncomplicated diverticulitis in the proximal sigmoid colon, chronic pleural parenchymal disease both lung bases. No other acute findings. Amrik Bryan MD ECG Data Interpretation: Atrial fibrillation at a rate of 79 No acute ischemic changes MDM Narrative Medical decision making narrative: 82-year-old gentleman presents with acute onset of left lower quadrant abdominal pain shortly after a bowel movement earlier today. Labs are reassuring with no evidence of sepsis, renal failure, significant electrolyte abnormalities and CT scan of the abdomen suggests he is developing a subtle uncomplicated diverticulitis. Will place him on Augmentin for 7 days. INR today is 2.9. Will suggest that he have his INR rechecked in 3 days given the change to medications. Reviewed signs and symptoms of worsening disease and reasons to return to the emergency department. Safe for home discharge Discharge Plan Departure Patient Disposition: Home Clinical Impression: Diverticulitis Instructions: DI for Diverticulitis Activity Restrictions/Additional Instructions: Thank you for coming in today You have an episode of uncomplicated diverticulitis. This is a low-grade infection over on the left side of your colon correlates with your pain. There is no evidence of abscess, sepsis or obstruction and no reason for additional imaging or hospitalization. I am going to give you a prescription for Augmentin, an antibiotic. Need to take this twice a day for 7 days. [place] can change your Coumadin level. Currently your INR is 2.9 which is perfect. I am going to suggest that you contact your Coumadin clinic provider and you will need to have your Coumadin rechecked in 3-4 days to make sure that the levels are appropriate with the addition of the antibiotics. If you find that you are getting worse or develop any new symptoms, please feel free to return to the emergency department for further evaluation. Prescriptions: New amoxicillin-pot clavulanate 875-125 mg tablet 1 tab PO BID Qty: 14 0RF No Action multivitamin [Multiple Vitamins] 1 EACH tablet 1 tab PO DAILY Qty: 0 cholecalciferol (vitamin D3) [Vitamin D3] 2,000 UNIT tablet 2,000 unit PO DAILY Qty: 0 finasteride 5 mg tablet 5 mg PO Q OTHER DAY Qty: 90 3RF Paxlovid (EUA) 300 mg (150 mg x 2)-100 mg tablets,dose pack See Rx Instructions PO .COMPLEX Qty: 30 0RF Rx Instructions: take TWO 150 mg tablets of nirmatrelvir with ONE 100 mg tablet of ritonavir twice daily for 5 days PO warfarin 5 mg tablet See Rx Instructions .ROUTE .COMPLEX Qty: 90 0RF Dose Instruction: Take 1/2 tablet daily except on and Mon take 1 or as directed by doctor ; Rx Instructions: Take 5mg Monday and Monday and 2.5mg all other days, or as directed. tamsulosin 0.4 mg capsule 0.4 mg PO ONCE Rx Instructions: 30 minutes following the same meal each day Iron High Potency 27 mg tablet 27 mg PO DAILY Label Comments: Iron High Potency 240mg (27mg iron) Ocuvite 30unit 5mg 150mg 1 cap PO DAILY metoprolol succinate 100 MG tablet extended release 24 hr 50 mg PO QAM Qty: 60 0RF metoprolol succinate [Toprol XL] 25 mg tablet extended release 24 hr 25 mg PO BEDTIME Referrals: Alejandro Pinto DO [Primary Care Provider] -
--- NOTE | 2022-10-20 01:59 | DI.CT.S_ITS ---
PROCEDURE: CT ABDOMEN PELVIS W CON INDICATIONS: LLQ pain TECHNIQUE: After the administration of intravenous contrast, axial sections acquired from the lung bases to the pubic symphysis. Coronal and sagittal reformats were performed. For radiation dose reduction, the following was used: automated exposure control, adjustment of mA and/or kV according to patient size. COMPARISON: [facility], CT, CT ABDOMEN PELVIS W CON, 01/28/2021, 11:11. FINDINGS: Image quality: Excellent. Lung bases: Minor subpleural bilateral fibrotic changes and small bilateral pleural effusions. Punctate bilateral pleural calcifications. Heart: Moderate cardiomegaly. Trace pericardial calcification. Small pericardial effusion. Small hiatal hernia. ABDOMEN: Liver: No masses. Gallbladder: Surgically absent. Biliary ducts: Nondilated. Pancreas: Subcentimeter ventral pancreatic body cyst, stable. Otherwise normal appearance. Spleen: Normal size. Adrenal Glands: No nodules. Kidneys and Ureters: Symmetric enhancement. No nephrolithiasis or hydronephrosis. No hydroureter. Exophytic left lower pole cyst. Stomach and Bowel: Mild proximal sigmoid colon diverticulosis questionable adjacent fascial thickening. No wall thickening or significant inflammation. No perforation or abscess. The appendix is absent. Small bowel and stomach are within normal limits. Peritoneum: No abnormal intraperitoneal fluid. No free air. Ventral Wall: Tiny fat containing umbilical hernia. Abdominal Nodes: No retroperitoneal or mesenteric adenopathy by size criteria. Vessels: Aorta and inferior vena cava are normal in size. Moderate abdominal aortic atherosclerotic calcification. PELVIS: Pelvic Organs: Marked prostatomegaly. Normal seminal vesicles. Bladder: Small liver dome bladder diverticulum. Minor urinary bladder wall thickening over the dome suggestive of coarse trabeculation. No stones. Pelvic Nodes: No enlarged lymph nodes. Miscellaneous: Lipomatous change of the spermatic cords. Bones: Bilateral sacroiliac joint ankylosis. Moderate lower lumbar disc degeneration. IMPRESSION: 1. Possible early proximal sigmoid diverticulitis superimposed on mild diverticulosis. 2. No other acute process. 3. Bibasilar pulmonary findings of probable asbestosis. 4. Marked prostatomegaly. 5. Final interpretation is concordant with preliminary report. Dictated by: Lucie Dao M.D. on 10/20/2022 at 8:59 Approved by: Lucie Dao M.D. on 10/20/2022 at 9:07
[2022-10-20 02:01] LABS: Add Manual Diff / Slide Review NO; Basophils Absolute Auto 0 /uL (0-100); Basophils Percent Auto 0.6 % (0-2); Eosinophils Absolute Auto 100 /uL (0-450); Hematocrit 42.3 % (41-53); Hemoglobin 13.8 g/dL (13.5-17.5); Lymphocytes Absolute Auto 1100 /uL (1100-4500); Lymphocytes Percent Auto 15.3 % (25-40); Mean Corpuscular HGB Conc 32.6 % (30-36); Mean Corpuscular Hemoglobin 29.7 PG (26-34); Mean Corpuscular Volume 91.2 fL (80-100); Monocytes Absolute Auto 800 /uL (0-900); Monocytes Percent Auto 11.3 % (3-14); Neutrophils Absolute Auto 5200 /uL (1500-7000); Neutrophils Percent Auto 70.8 % (50-75); Platelet Count 249 X10^3/uL (150-400); Red Blood Cell Count 4.63 X10^6/uL (4.5-5.9); Red Cell Distribution Width 14.4 % (11.6-14.8); White Blood Cell Count 7.3 X10^3/uL (4.5-11.0)
[2022-10-20 02:08] LABS: Alanine Aminotransferase 23 IU/L (<50); Albumin 3.6 g/dL (3.5-5.0); Albumin Globulin Ratio 1.3 (1.0-2.8); Alkaline Phosphatase 79 U/L (38-126); Aspartate Aminotransferase 22 IU/L (17-59); Bilirubin Total 1.6 mg/dL (0.2-1.3); Blood Urea Nitrogen 22 mg/dL (9-20); Calcium 8.1 mg/dL (8.4-10.2); Carbon Dioxide 26 mmol/L (22-32); Chloride 106 mmol/L (98-107); Estimated Glomerular Filt Rate 58 mL/min (>60); Globulin 2.8 g/dL (1.7-4.1); Glucose 96 mg/dL (80-110); HEMOLYSIS < 15 (0-50); INR 2.9 (0.9-1.3); Lipase 267 U/L (23-300); Potassium 4.3 mmol/L (3.4-5.1); Prothrombin Time 33.5 SECONDS (10.1-12.7); Sodium 137 mmol/L (137-145); Total Protein 6.4 g/dL (6.3-8.2)
[2022-10-20 03:06] LABS: Bacteria Urine None Seen; RBC Urine 1-5/HPF (0-5/HPF); WBC Urine 0-1/HPF (0-5/HPF)
[2022-10-20 04:34] VITALS: BP 115/70; PULSE 62; RESP 14; O2SAT 98
[2022-10-20] MEDS: AMOXICILLIN/CLAV 875/125 MG 1 TAB PO (05:00)
== END 2022-10-20 04:35 | disposition home or self-care (01) ==
PROVIDERS: Emergency Provider Emergency Medicine; Family Provider Family Medicine; PCP Family Medicine
DX: K57.32 Diverticulitis of large intestine without perforation or abscess without bleeding (principal); I48.91 Unspecified atrial fibrillation
CPT/HCPCS: 36415; 74177; 80053; 81003; 81015; 83690; 85025; 85610; 87086; 93005; 93010; 99284; Q9967

== ENCOUNTER → 2022-10-26 08:40 | Outpatient (CLI) | payer MEDICARE, OTHER, SELFPAY ==
[2022-07-06 10:06] VITALS: BMI 23.5
[2022-10-26 09:34] LABS: INR 1.8 (0.9-1.3); Prothrombin Time 20.7 SECONDS (10.1-12.7)
== END ==
PROVIDERS: Family Provider Family Medicine; PCP Family Medicine; Referring Provider Family Medicine; Visit Provider Family Medicine
DX: Z79.01 Long term (current) use of anticoagulants (principal); I48.91 Unspecified atrial fibrillation
CPT/HCPCS: 36415; 85610

== ENCOUNTER → 2022-11-23 08:37 | Outpatient (CLI) | payer MEDICARE, OTHER, SELFPAY ==
[2022-07-06 10:06] VITALS: BMI 23.5
[2022-11-23 09:12] LABS: INR 1.9 (0.9-1.3); Prothrombin Time 22.5 SECONDS (10.1-12.7)
== END ==
PROVIDERS: Family Provider Family Medicine; PCP Family Medicine; Referring Provider Family Medicine; Visit Provider Family Medicine
DX: Z79.01 Long term (current) use of anticoagulants (principal); I48.20 Chronic atrial fibrillation, unspecified
CPT/HCPCS: 36415; 85610

== ENCOUNTER → 2022-12-21 08:12 | Outpatient (CLI) | payer MEDICARE, OTHER, SELFPAY ==
[2022-07-06 10:06] VITALS: BMI 23.5
[2022-12-21 08:41] LABS: Add Manual Diff / Slide Review NO; Basophils Absolute Auto 0 /uL (0-100); Basophils Percent Auto 0.5 % (0-2); Eosinophils Absolute Auto 300 /uL (0-450); Eosinophils Percent Auto 4.9 % (2-4); Hematocrit 42.9 % (41-53); Hemoglobin 14.1 g/dL (13.5-17.5); Lymphocytes Absolute Auto 1100 /uL (1100-4500); Lymphocytes Percent Auto 18.2 % (25-40); Mean Corpuscular HGB Conc 32.9 % (30-36); Mean Corpuscular Hemoglobin 30.1 PG (26-34); Mean Corpuscular Volume 91.5 fL (80-100); Monocytes Absolute Auto 700 /uL (0-900); Monocytes Percent Auto 11.9 % (3-14); Neutrophils Absolute Auto 3800 /uL (1500-7000); Neutrophils Percent Auto 64.5 % (50-75); Platelet Count 272 X10^3/uL (150-400); Red Blood Cell Count 4.69 X10^6/uL (4.5-5.9); Red Cell Distribution Width 14.7 % (11.6-14.8); White Blood Cell Count 5.9 X10^3/uL (4.5-11.0)
[2022-12-21 08:46] LABS: INR 1.8 (0.9-1.3); Prothrombin Time 20.7 SECONDS (10.1-12.7)
[2022-12-21 08:53] LABS: BUN Creatinine Ratio 21.6 (6-22); Blood Urea Nitrogen 25 mg/dL (9-20); Calcium 8.7 mg/dL (8.4-10.2); Carbon Dioxide 29 mmol/L (22-32); Chloride 103 mmol/L (98-107); Cholesterol 196 mg/dL (140-199); Estimated Glomerular Filt Rate > 60 mL/min (>60); Glucose 78 mg/dL (80-110); HDL Cholesterol 44 mg/dL (40-60); HEMOLYSIS < 15 (0-50); LDL Cholesterol Calculated 124 mg/dL (<100); Potassium 4.5 mmol/L (3.4-5.1); Sodium 141 mmol/L (137-145); Triglycerides 141 mg/dL (35-150)
== END ==
PROVIDERS: Family Provider Family Medicine; PCP Family Medicine; Referring Provider Internal Medicine Cardiovascular Disease; Visit Provider Internal Medicine Cardiovascular Disease
DX: E78.5 Hyperlipidemia, unspecified (principal); Z79.01 Long term (current) use of anticoagulants; I10 Essential (primary) hypertension; I48.91 Unspecified atrial fibrillation
CPT/HCPCS: 36415; 80048; 80061; 85025; 85610

== ENCOUNTER → 2022-12-28 08:44 | Outpatient (CLI) | payer MEDICARE, OTHER, SELFPAY ==
[2022-07-06 10:06] VITALS: BMI 23.5
[2022-12-28 09:42] LABS: INR 2.6 (0.9-1.3); Prothrombin Time 30.7 SECONDS (10.1-12.7)
== END ==
PROVIDERS: Family Provider Family Medicine; PCP Family Medicine; Referring Provider Family Medicine; Visit Provider Family Medicine
DX: I82.409 Acute embolism and thrombosis of unspecified deep veins of unspecified lower extremity (principal)
CPT/HCPCS: 36415; 85610

== ENCOUNTER 2023-01-17 15:17 | Emergency (ER) | payer MEDICARE, OTHER, SELFPAY ==
[2022-07-06 10:06] VITALS: BMI 23.5
[2023-01-17] VITALS (10 sets, daily range): BP systolic 163–189; BP diastolic 77–104; PULSE 71–90; RESP 18; TEMP 36.7; O2SAT 95–99; BMI 23.6
--- NOTE | 2023-01-17 15:45 | DI.CT.S_ITS ---
PROCEDURE: CT HEAD/BRAIN WO CON INDICATIONS: unsteady/blurry vision TECHNIQUE: Noncontrast 4.5 mm thick angled axial sections acquired from the foramen magnum to the vertex, with coronal and sagittal reformats. For radiation dose reduction, the following was used: automated exposure control, adjustment of mA and/or kV according to patient size. COMPARISON: [facility], CT, CT HEAD/BRAIN WO CON, 08/09/2022, 11:11. FINDINGS: Image quality: Adequate CSF spaces: Basal cisterns are patent. No extra-axial fluid collections. The ventricles are symmetric in size and shape. Brain: No intracranial bleeds or masses. There is cerebral volume loss for age, with resultant ventricular and sulcal prominence. There are periventricular and deep white matter chronic small vessel ischemic changes. There is intracranial internal carotid artery atherosclerosis. Skull and face: Calvarium and visualized facial bones appear intact, without suspicious lesions. Sinuses: Similar nonspecific opacification left anterior ethmoid air cells IMPRESSION: No intracranial hemorrhage or other acute intracranial abnormality. Dictated by: Eagle Ordonez M.D. on 01/17/2023 at 16:26 Approved by: Eagle Ordonez M.D. on 01/17/2023 at 16:31
[2023-01-17 15:57] LABS: RBC Urine None Seen (0-5/HPF); Squamous Epithelial Cell Urine 0-1 /HPF (0-5/HPF); WBC Urine None Seen (0-5/HPF)
[2023-01-17 15:58] LABS: Bacteria Urine None Seen; Culture Indicated Urine Cult Not Indicated
--- NOTE | 2023-01-17 16:04 | DI.CT.S_ITS ---
PROCEDURE: CT ANGIO HEAD AND NECK INDICATIONS: unsteady/blurry vision TECHNIQUE: After the administration of intravenous contrast, 1 mm thick sections acquired from the aortic arch through the [place]. Post-contrast 4.5 mm thick sections then re-acquired from the foramen magnum to the vertex. MIP reformats of the arterial vasculature were utilized. For radiation dose reduction, the following was used: automated exposure control, adjustment of mA and/or kV according to patient size. COMPARISON: [facility], CT, CT ANGIO HEAD AND NECK, 06/28/2022, 20:43. FINDINGS: Cerebral CT Angiogram: Internal carotid arteries: No acute findings. Intracranial ICA are patent with no significant stenosis. No occlusion. No aneurysm. Anterior cerebral arteries: Unremarkable. No significant stenosis. No occlusion. No aneurysm. Middle cerebral arteries: Unremarkable. No significant stenosis. No occlusion. No aneurysm. Posterior cerebral arteries: Unremarkable. No significant stenosis. No occlusion. No aneurysm. Basilar artery: Unremarkable. No significant stenosis. No occlusion. No aneurysm. Vertebral arteries: Unremarkable as visualized. Dural venous sinuses: Unremarkable given phase of enhancement. Other: Arterial phase brain parenchyma is unremarkable. Chronic sphenoid opacification and wall thickening Neck CT Angiogram: Internal carotid arteries: Unremarkable. No significant stenosis. No dissection or occlusion. Common carotid arteries: Unremarkable. No significant stenosis. No dissection or occlusion. External carotid arteries: Unremarkable. No occlusion. Vertebral arteries: Unremarkable. No significant stenosis. No dissection or occlusion. Other: Emphysematous changes noted in both lung apices Aortic Arch and Mediastinum: Partially visualized aortic arch unremarkable without evidence of aneurysm. Origins of the great vessels unremarkable. IMPRESSION: 1. Unremarkable intracranial CT angiogram without large vessel occlusion, aneurysm or vascular malformation. 2. Unremarkable CT angiogram of the neck without significant stenosis 3. Chronic sphenoid mucosal sinus disease Note: Any reported proximal ICA stenosis was calculated using NASCET guidelines. Approved by: Popeye Morris M.D. on 01/17/2023 at 16:24
[2023-01-17 16:12] LABS: Add Manual Diff / Slide Review NO; Basophils Absolute Auto 0 /uL (0-100); Basophils Percent Auto 0.8 % (0-2); Eosinophils Absolute Auto 200 /uL (0-450); Eosinophils Percent Auto 2.8 % (2-4); Hematocrit 41.2 % (41-53); Hemoglobin 13.8 g/dL (13.5-17.5); Lymphocytes Absolute Auto 1100 /uL (1100-4500); Lymphocytes Percent Auto 17.8 % (25-40); Mean Corpuscular HGB Conc 33.4 % (30-36); Mean Corpuscular Hemoglobin 30.4 PG (26-34); Mean Corpuscular Volume 90.8 fL (80-100); Monocytes Absolute Auto 600 /uL (0-900); Monocytes Percent Auto 10.3 % (3-14); Neutrophils Absolute Auto 4200 /uL (1500-7000); Neutrophils Percent Auto 68.3 % (50-75); Platelet Count 240 X10^3/uL (150-400); Red Blood Cell Count 4.54 X10^6/uL (4.5-5.9); Red Cell Distribution Width 14.3 % (11.6-14.8); White Blood Cell Count 6.2 X10^3/uL (4.5-11.0)
[2023-01-17 16:14] LABS: Alanine Aminotransferase 26 IU/L (<50); Albumin 3.8 g/dL (3.5-5.0); Albumin Globulin Ratio 1.3 (1.0-2.8); Alkaline Phosphatase 87 U/L (38-126); Aspartate Aminotransferase 28 IU/L (17-59); BUN Creatinine Ratio 17.6 (6-22); Bilirubin Total 1.6 mg/dL (0.2-1.3); Blood Urea Nitrogen 19 mg/dL (9-20); Calcium 8.1 mg/dL (8.4-10.2); Carbon Dioxide 25 mmol/L (22-32); Chloride 104 mmol/L (98-107); Estimated Glomerular Filt Rate > 60 mL/min (>60); Globulin 2.9 g/dL (1.7-4.1); Glucose 92 mg/dL (80-110); HEMOLYSIS < 15 (0-50); Potassium 4.2 mmol/L (3.4-5.1); Sodium 136 mmol/L (137-145); Total Protein 6.7 g/dL (6.3-8.2)
[2023-01-17 16:23] LABS: NT-proBNP (BNP-Adult 18+) 1820 pg/mL (<450)
--- NOTE | 2023-01-17 19:02 | ED_ITS ---
HPI - Neuro Symptoms/Deficit General Chief Complaint: Neuro Symptoms/Deficit Stated Complaint: Lightheadness, unsteady, vision issues 45 minutes Time Seen by Provider: 01/17/23 18:09 Source: patient Mode of arrival: Ambulatory Limitations: no limitations History of Present Illness HPI Narrative: Patient is an 82-year-old male. Is on anticoagulation. Has a history of atrial fibrillation. Has had issues with occasional lightheadedness and unsteadiness for some time now. He has seen his primary doctor. Was recently seen by cardiology who told him that his AFib was well controlled and did not schedule another follow-up for 1 year. Patient is scheduled to see a neurologist. He states that today he was walking out to his mailbox where he said that he became lightheaded. He stated that he did have some changes in her vision during this time. He is very unsteady. He was not having chest pain. He did not pass out. He did not fall. He states this was more intense than his normal lightheadedness. He was able to walk back into the house and sat down and the symptoms eventually resolved lasting approximately 45 minutes. He currently is asymptomatic. On Anticoagulants: Yes (warfarin) Related Data Home Medications Medication Instructions Recorded Confirmed multivitamin (Multiple Vitamins 1 tab PO DAILY ##0 03/06/13 10/25/22 tablet) cholecalciferol (vitamin D3) 50 2,000 unit PO DAILY #0 tabs 08/03/16 10/25/22 mcg (2,000 unit) tablet (Vitamin D3) Iron High Potency 27 mg PO DAILY 04/09/19 10/25/22 Ocuvite 30unit 5mg 150mg 1 cap PO DAILY 04/09/19 10/25/22 furosemide 20 mg tablet (Lasix) 20 mg PO DAILY 10/25/22 10/25/22 Previous Rx's Medication Instructions Recorded warfarin 5 mg tablet See Rx Instructions .Route 10/27/22 .COMPLEX #108 tabs finasteride 5 mg tablet 5 mg PO Q OTHER DAY #45 tabs 12/29/22 metoprolol succinate 100 mg 100 mg PO DAILY #90 tabs 12/29/22 tablet,extended release 24 hr metoprolol succinate 25 mg 25 mg PO DAILY #90 tabs 12/29/22 tablet,extended release 24 hr tamsulosin 0.4 mg capsule 0.4 mg PO BID #180 caps 12/29/22 Allergies Allergy/AdvReac Type Severity Reaction Status Date / Time No Known Drug Allergies Allergy Verified 10/25/22 08:54 Review of Systems Constitutional Constitutional: Reports system reviewed and no additional complaints, except as documented Cardiovascular Cardiovascular: Reports system reviewed and no additional complaints, except as documented Respiratory Respiratory: Reports system reviewed and no additional complaints, except as documented Gastrointestinal Gastrointestinal: Reports system reviewed and no additional complaints, except as documented Neurologic Neurologic: Reports system reviewed and no additional complaints, except as documented Hematologic/Lymphatic On Anticoagulants: Yes (warfarin) Patient History Medical History Anticoagulated on warfarin Aortic stenosis, severe Atrial fibrillation with rapid ventricular response Balance problem 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) Cervical somatic dysfunction Chronic atrial fibrillation (01/02/18) Chronic bilateral low back pain without sciatica Cranial somatic dysfunction Diplopia Elevated random blood glucose level Erectile dysfunction Essential hypertension (02/16/16) Fatigue Foot stiffness History of elevated PSA Incomplete emptying of bladder (02/16/16) Insomnia Left arm weakness Pelvic somatic dysfunction Physician orders for life-sustaining treatment (POLST) form indicates patient wish for wt-gko-gkqwbbgttgn status Segmental and somatic dysfunction of lumbar region Segmental and somatic dysfunction of rib cage Segmental and somatic dysfunction of sacral region Segmental and somatic dysfunction of thoracic region Somatic dysfunction of both lower extremities Vitamin D deficiency Surgical History Hx of cholecystectomy Status post cholecystectomy Family History Mother CVA (cerebral vascular accident) Father Diabetes mellitus Brother Renal failure Social History marital status: number of children: 1 household members: none occupational status: previously employed Previous occupational history: [employer] Smoking Status: Former smoker alcohol intake: former caffeine: Yes Smoking Status: Former smoker alcohol intake frequency: 0-2 drinks per day Substance Use Type: does not use Exam Initial Vital Signs Initial Vital Signs: Vital Signs Temperature 98.1 F 01/17/23 15:33 Pulse Rate 90 01/17/23 15:33 Respiratory Rate 18 01/17/23 15:33 Blood Pressure 163/90 H 01/17/23 15:33 Pulse Oximetry 99 01/17/23 15:33 Oxygen Delivery Method Room Air 01/17/23 15:33 Const General: cooperative and comfortable HENMT Head: normal to inspection and normocephalic Resp Effort & Inspection: normal respiratory effort Auscultation: clear to auscultation bilaterally Cardio Rate: regular rate Rhythm: abnormal rhythm Skin General: no rashes or lesions noted Neuro General: patient alert, patient awake, patient oriented x3 and moves all extremities Gait: normal gait Extrem General: normal to inspection and capillary refill normal Course Orders Ordered: ED Orders 01/17/23 18:21 EKG-12 Lead Stat Vital Signs Vital signs: Vital Signs - 8 hr 01/17/23 19:00 01/17/23 19:04 01/17/23 19:04 Pulse Rate 74 76 Blood Pressure 189/91 H Pulse Oximetry 95 95 Oxygen Delivery Method 01/17/23 19:30 01/17/23 19:30 Pulse Rate 81 Blood Pressure 187/104 H Pulse Oximetry 98 Oxygen Delivery Method Room Air MDM - Neuro Symptoms/Deficit Lab Data Attestation: I reviewed the patient's lab results. 01/17/23 15:53 01/17/23 15:53 Labs: Lab Results 01/17/23 01/17/23 01/17/23 Range/Units 15:31 15:53 15:53 WBC 6.2 (4.5-11.0) X10^3/uL RBC 4.54 (4.5-5.9) X10^6/uL Hgb 13.8 (13.5-17.5) g/dL Hct 41.2 (41-53) % MCV 90.8 (80-100) fL MCH 30.4 (26-34) PG MCHC 33.4 (30-36) % RDW 14.3 (11.6-14.8) % Plt Count 240 (150-400) X10^3/uL Neut % (Auto) 68.3 (50-75) % Lymph % (Auto) 17.8 L (25-40) % [place] % (Auto) 10.3 (3-14) % Eos % (Auto) 2.8 (2-4) % Baso % (Auto) 0.8 (0-2) % Neut # (Auto) 4200 (7027-4776) /uL Lymph # (Auto) 1100 (1607-6831) /uL [place] # (Auto) 600 (0-900) /uL Eos # (Auto) 200 (0-450) /uL Baso # (Auto) 0 (0-100) /uL Sodium 136 L (137-145) mmol/L Potassium 4.2 (3.4-5.1) mmol/L Chloride 104 (98-107) mmol/L Carbon Dioxide 25 (22-32) mmol/L BUN 19 (9-20) mg/dL Creatinine 1.08 (0.66-1.25) mg/dL Estimated GFR > 60 (>60) mL/min BUN/Creatinine Ratio 17.6 (6-22) Glucose 92 (80-110) mg/dL Calcium 8.1 L (8.4-10.2) mg/dL Total Bilirubin 1.6 H (0.2-1.3) mg/dL AST 28 (17-59) IU/L ALT 26 (<50) IU/L Alkaline Phosphatase 87 (38-126) U/L NT-Pro-B Natriuret Pep 1820 H (<450) pg/mL Total Protein 6.7 (6.3-8.2) g/dL Albumin 3.8 (3.5-5.0) g/dL Globulin 2.9 (1.7-4.1) g/dL Albumin/Globulin Ratio 1.3 (1.0-2.8) Urine RBC None seen (0-5/HPF) Urine WBC None seen (0-5/HPF) Ur Squamous Epith Cells 0-1 /hpf (0-5/HPF) Urine Bacteria None seen (None) Ur Culture Indicated? Cult not indicated Urine Dip Bedside Urine Glucose Negative Bedside Urine Bilirubin - Negative Bedside Urine Ketone - Negative Urine Specific [place] 1.010 Bedside Urine Occult Blood - Negative Bedside Urine pH 6.0 Bedside Urine Protein - Negative Bedside Urine Urobilinogen - Negative Bedside Urine Nitrite - Negative Bedside Urine Leukocytes +/- [address] scan - head: Radiologist's Impression: PROCEDURE:? CT HEAD/BRAIN WO CON ? INDICATIONS:? unsteady/blurry vision ? TECHNIQUE:? Noncontrast 4.5 mm thick angled axial sections acquired from the foramen magnum to the vertex, with coronal and sagittal reformats.? For radiation dose reduction, the following was used:? automated exposure control, adjustment of mA and/or kV according to patient size.? ? COMPARISON:? [facility], CT, CT HEAD/BRAIN WO CON, 08/09/2022, 11:11. ? FINDINGS:? Image quality:? Adequate ? CSF spaces:? Basal cisterns are patent.? No extra-axial fluid collections.? The ventricles are symmetric in size and shape.? ? Brain:? No intracranial bleeds or masses.? There is cerebral volume loss for age, with resultant ventricular and sulcal prominence.? There are periventricular and deep white matter chronic small vessel ischemic changes.? There is intracranial internal carotid artery atherosclerosis.? ? Skull and face:? Calvarium and visualized facial bones appear intact, without suspicious lesions.? ? Sinuses:? Similar nonspecific opacification left anterior ethmoid air cells ? IMPRESSION:? No intracranial hemorrhage or other acute intracranial abnormality. CTA - brain/neck: Radiologist's Impression: ROCEDURE:? CT ANGIO HEAD AND NECK ? INDICATIONS:? unsteady/blurry vision ? TECHNIQUE:? ? After the administration of intravenous contrast, 1 mm thick sections acquired from the aortic arch through the [place].? Post-contrast 4.5 mm thick sections then re-acquired from the foramen magnum to the vertex.? MIP reformats of the arterial vasculature were utilized.? For radiation dose reduction, the following was used:? automated exposure control, adjustment of mA and/or kV according to patient size.? ? COMPARISON:? [facility], CT, CT ANGIO HEAD AND NECK, 06/28/2022, 20:43. ? FINDINGS: ? Cerebral CT Angiogram: ? Internal carotid arteries:? No acute findings.? Intracranial ICA are patent with no significant stenosis.? No occlusion.? No aneurysm. ? Anterior cerebral arteries:? Unremarkable.? No significant stenosis.? No occlusion.? No aneurysm. ? Middle cerebral arteries:? Unremarkable.? No significant stenosis.? No occlusion.? No aneurysm. ? Posterior cerebral arteries:? Unremarkable.? No significant stenosis.? No occlusion.? No aneurysm. ? Basilar artery:? Unremarkable.? No significant stenosis.? No occlusion.? No aneurysm. ? Vertebral arteries:? Unremarkable as visualized. ? Dural venous sinuses:? Unremarkable given phase of enhancement. ? Other:? Arterial phase brain parenchyma is unremarkable.? Chronic sphenoid opacification and wall thickening ? Neck CT Angiogram: ? Internal carotid arteries:? Unremarkable.? No significant stenosis.? No dissection or occlusion. ? Common carotid arteries:? Unremarkable.? No significant stenosis.? No dissection or occlusion. ? External carotid arteries:? Unremarkable.? No occlusion. ? Vertebral arteries:? Unremarkable.? No significant stenosis.? No dissection or occlusion. ? Other:? Emphysematous changes noted in both lung apices ? Aortic Arch and Mediastinum:? Partially visualized aortic arch unremarkable without evidence of aneurysm. Origins of the great vessels unremarkable. ? IMPRESSION: ? 1. Unremarkable intracranial CT angiogram without large vessel occlusion, aneurysm or vascular malformation. ? 2. Unremarkable CT angiogram of the neck without significant stenosis ? 3. Chronic sphenoid mucosal sinus disease ECG Data Attestation: I personally reviewed and interpreted this ECG as follows: Interpretation: Atrial fibrillation Ventricular rate is 73 Normal axis Normal QRS Normal QTC No ST T wave changes MDM Narrative Medical decision making narrative: Patient is currently asymptomatic. He is in AFib but is rate controlled. Is on anticoagulation. Has had CT and CTA are unremarkable. Patient has had episodes of dizziness and lightheadedness in the past. He is scheduled to see Neurology. He is recently seen cardiology. Low suspicion for CVA/TIA. I do have some concern that potentially he is having episodes of rapid ventricular response or potentially even a bradycardia secondary to his atrial fibrillation that is transient and potentially causing his symptoms. I discuss this with him. He does understand that this is not definitive since he is rate controlled in the 70s on his EKG. Informed him that he could potentially talk with his primary doctor funeral assistant's about potentially wearing a Holter monitor. I encouraged him to keep his follow-up appointment with Neurology. This did not appear to be a vertigo scenario. He did not fall. He ambulated around the emergency department. Will discharge patient home he was given return precautions. Expressed understanding agreement. Discharge Plan Departure Patient Disposition: Home Clinical Impression: Light headed Instructions: DI for Dizziness-Nonvertigo Activity Restrictions/Additional Instructions: I do recommend that you continue to take all of your medications as directed and keep all of your scheduled medical appointments. Return to the emergency department for any new or worsening symptoms. Prescriptions: No Action multivitamin [Multiple Vitamins] 1 EACH tablet 1 tab PO DAILY Qty: 0 cholecalciferol (vitamin D3) [Vitamin D3] 2,000 UNIT tablet 2,000 unit PO DAILY Qty: 0 warfarin 5 mg tablet See Rx Instructions .ROUTE .COMPLEX Qty: 108 3RF Dose Instruction: Take 1/2 tablet daily except on and Mon take 1 or as directed by doctor ; Rx Instructions: Take 5mg Monday and Monday and 2.5mg all other days, or as directed. finasteride 5 mg tablet 5 mg PO Q OTHER DAY Qty: 45 3RF tamsulosin 0.4 mg capsule 0.4 mg PO BID Qty: 180 3RF Rx Instructions: 30 minutes following the same meal each day metoprolol succinate 100 mg tablet extended release 24 hr 100 mg PO DAILY Qty: 90 3RF Rx Instructions: TAKE WITH 25MG METOPROLOL SUCCINATE FOR TOTAL 125MG DOSE metoprolol succinate 25 mg tablet extended release 24 hr 25 mg PO DAILY Qty: 90 3RF Rx Instructions: TAKE WITH 100MG METOPROLOL SUCCINATE FOR TOTAL 125MG DOSE furosemide [Lasix] 20 mg tablet 20 mg PO DAILY [place] High Potency 27 mg tablet 27 mg PO DAILY Patient Comments: Iron High Potency 240mg (27mg iron) Ocuvite 30unit 5mg 150mg 1 cap PO DAILY Referrals: Alejandro Pinto DO [Primary Care Provider] - Stand Alone Forms: Patient Portal/API
== END 2023-01-17 19:40 | disposition home or self-care (01) ==
PROVIDERS: Emergency Medicine; Emergency Provider Emergency Medicine; Family Provider Family Medicine; PCP Family Medicine
DX: R42 Dizziness and giddiness (principal); H53.8 Other visual disturbances; I48.91 Unspecified atrial fibrillation; Z79.01 Long term (current) use of anticoagulants
CPT/HCPCS: 36415; 70450; 70496; 70498; 80053; 81003; 81015; 83880; 85025; 93005; 99283; 99284

== ENCOUNTER 2023-03-14 04:23 | Emergency (ER) | payer MEDICARE, OTHER, SELFPAY ==
[2022-07-06 10:06] VITALS: BMI 23.5
[2023-03-14] VITALS (7 sets, daily range): BP systolic 133–140; BP diastolic 74–75; PULSE 67–118; RESP 18–34; O2SAT 87–98; BMI 23.7
--- NOTE | 2023-03-14 04:41 | DI.CT.S_ITS ---
PROCEDURE: CT ANGIO HEAD AND NECK INDICATIONS: left leg weakness, light headed TECHNIQUE: Pre-contrast 4.5 mm thick sections acquired from the foramen magnum to the vertex. After the administration of intravenous contrast, 1 mm thick sections acquired from the aortic arch through the [place]. Post-contrast 4.5 mm thick sections then re-acquired from the foramen magnum to the vertex. 3-dimensional popnzqa-dikojvuuk-ckrxtbgrjs (MIP) and/or volume rendering reformats were acquired of the central intracranial vasculature and neck separately. For radiation dose reduction, the following was used: automated exposure control, adjustment of mA and/or kV according to patient size. COMPARISON: [facility], CT, CT ANGIO HEAD AND NECK, 01/17/2023, 16:04. FINDINGS: Image quality: Excellent. BRAIN: CSF spaces: Ventricles are normal in size and shape. Basal cisterns are patent. No extra-axial fluid collections. Brain: Age related volume loss and moderate periventricular and deep white matter chronic small vessel ischemic changes are seen. No midline shift. No intracranial bleeds or masses. [place]-white matter interface appears intact. No area of abnormal intracranial enhancement Skull and face: Calvarium and facial bones appear intact, without suspicious lesions. Orbits appear normal. Sinuses: Mucosal thickening in ethmoid and sphenoid sinuses are seen. Bilateral mastoids are well aerated. HEAD CT ANGIOGRAPHY: Anterior circulation: Atherosclerotic calcifications are noted involving intracranial portion of bilateral internal carotid arteries with less than 50 percent stenosis. The flow within the paired anterior cerebral arteries is normal and symmetric. The flow within the middle cerebral arteries is normal and symmetric. The anterior communicating artery is seen. No aneurysms are seen. Posterior circulation: Visualized portions of the vertebral arteries demonstrate normal caliber, and join to form a normal appearing basilar artery. Flow within the posterior cerebral arteries is normal and symmetric. No aneurysms are seen. NECK CT ANGIOGRAPHY: Carotid system: The great vessels demonstrate a conventional anatomy as they arise from the aortic arch. The origins of the common carotid arteries appear patent. The common carotid arteries demonstrate normal caliber and courses. Mild atherosclerotic calcifications are noted involving bilateral carotid bifurcations and origin of bilateral internal carotid arteries slightly worse on the right side with less than 50 percent stenosis. More distal internal carotid arteries demonstrate normal calibers and courses. Posterior circulation: The origins of the vertebral arteries both appear widely patent. The more superior extracranial portions of both vertebral arteries also demonstrate normal courses and calibers. They join to form a normal appearing basilar artery. Soft tissues: Visualized neck soft tissues demonstrate no suspicious abnormalities. Emphysematous changes are seen in bilateral lung apices. Calcified pleural plaques are seen scattered in bilateral lung tang. Bones: No suspicious bony lesions. Visualized cervical spine appears normally aligned. Degenerative disc disease throughout cervical spine is seen. IMPRESSION: 1. No CT evidence of acute intracranial abnormalities. No area of abnormal contrast enhancement. No significant changes from previous study. 2. Mild to moderate bilateral sphenoid and ethmoid sinusitis. 3. No hemodynamically significant stenosis or aneurysm is seen in intracranial circulation. 4. No hemodynamically significant stenosis is seen in bilateral carotid arteries. No significant discrepancies from preliminary reading. Any quantitative measurements of stenosis were performed using NASCET criteria. Dictated by: Marco Antonio Gross M.D. on 03/14/2023 at 8:32 Approved by: Marco Antonio Gross M.D. on 03/14/2023 at 8:38
[2023-03-14 04:57] LABS: Add Manual Diff / Slide Review NO; Basophils Absolute Auto 200 /uL (0-100); Basophils Percent Auto 2.9 % (0-2); Eosinophils Absolute Auto 300 /uL (0-450); Eosinophils Percent Auto 6.1 % (2-4); Hematocrit 41.4 % (41-53); Hemoglobin 13.8 g/dL (13.5-17.5); Lymphocytes Absolute Auto 1100 /uL (1100-4500); Lymphocytes Percent Auto 19.1 % (25-40); Mean Corpuscular HGB Conc 33.2 % (30-36); Mean Corpuscular Volume 90.4 fL (80-100); Monocytes Absolute Auto 200 /uL (0-900); Monocytes Percent Auto 3.9 % (3-14); Neutrophils Absolute Auto 3900 /uL (1500-7000); Platelet Count 243 X10^3/uL (150-400); Red Blood Cell Count 4.58 X10^6/uL (4.5-5.9); Red Cell Distribution Width 13.8 % (11.6-14.8); White Blood Cell Count 5.7 X10^3/uL (4.5-11.0)
--- NOTE | 2023-03-14 04:57 | ED.NEUROSD ---
HPI - Neuro Symptoms/Deficit General Chief Complaint: Neuro Symptoms/Deficit Stated Complaint: can't walk straight, light headed Time Seen by Provider: 03/14/23 04:23 Source: patient Mode of arrival: Ambulatory History of Present Illness HPI Narrative: 82-year-old gentleman with a history of atrial fibrillation anticoagulated with warfarin, moderate to severe aortic stenosis with most recent echo in August of 2022., chronic episodes of ?lightheadedness for which he was evaluated in the emergency department in January of this year. He was admitted to the hospital in June of last year with complaints of ataxia. He comes in tonight complaining of difficulty walking and feeling that he is staggering more than usual. States that he feels more lightheaded than he typically does. Yesterday he drank 2 L of Pedialyte in addition to water to try to alleviate some of the symptoms. This morning as he got up at 4:00 a.m.(states he gets up approximately every 2 hours to void) was concerned that he was more dizzy and having more difficulty with walking. He reports no fevers, cough, chills. Uncertain on the specifics of what is actually wrong or changed today. He thinks that symptoms may have gotten worse yesterday his son was available to bring him to the hospital this morning at 4:30 a.m.. In reviewing admission notes from June of 2022 complaints sound essentially identical. At that time he was diagnosed with gait instability with vertigo and history of TIA all chronic and unchanged. Chronic hypertension, atrial fibrillation, hyperlipidemia BPH all consistent with today's complaints. That evaluation included head and neck CTA, brain MRI neither of which showed acute evidence of stroke or subacute infarct. In further reviewing findings he is not reporting headaches, vision changes, fevers, cough, palpitations, chest pain, abdominal pain, vomiting, diarrhea. He has not noticed an increase in lower extremity edema. In reviewing cardiology notes from January of 2023, the card cleaner notes progression to moderate to severe aortic stenosis. Currently metoprolol succinate 100 in the morning and 25 mg in the evening. Continues on Flomax, Coumadin, warfarin and Lipitor. Furosemide was discontinued with concerns for causing lightheadedness and mild acute kidney injury. Related Data Home Medications Medication Instructions Recorded Confirmed multivitamin (Multiple Vitamins 1 tab PO DAILY ##0 03/06/13 01/25/23 tablet) cholecalciferol (vitamin D3) 50 2,000 unit PO DAILY #0 tabs 08/03/16 01/25/23 mcg (2,000 unit) tablet (Vitamin D3) Iron High Potency 27 mg PO DAILY 04/09/19 01/25/23 Ocuvite 30unit 5mg 150mg 1 cap PO DAILY 04/09/19 01/25/23 atorvastatin 10 mg tablet 10 mg PO BEDTIME 01/25/23 01/25/23 melatonin 10 mg tablet 10 mg PO BEDTIME PRN 01/25/23 01/25/23 Previous Rx's Medication Instructions Recorded warfarin 5 mg tablet See Rx Instructions .Route 10/27/22 .COMPLEX #108 tabs finasteride 5 mg tablet 5 mg PO Q OTHER DAY #45 tabs 12/29/22 metoprolol succinate 100 mg 100 mg PO DAILY #90 tabs 12/29/22 tablet,extended release 24 hr metoprolol succinate 25 mg 25 mg PO DAILY #90 tabs 12/29/22 tablet,extended release 24 hr tamsulosin 0.4 mg capsule 0.4 mg PO BID #180 caps 12/29/22 Allergies Allergy/AdvReac Type Severity Reaction Status Date / Time No Known Drug Allergies Allergy Verified 01/25/23 13:25 Review of Systems Review of Systems Narrative: Pertinent positive and negative findings as per HPI Patient History Medical History Anticoagulated on warfarin Aortic stenosis, severe Atrial fibrillation with rapid ventricular response Balance problem 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) Cervical somatic dysfunction Chronic atrial fibrillation (01/02/18) Chronic bilateral low back pain without sciatica Cranial somatic dysfunction Diplopia Elevated random blood glucose level Erectile dysfunction Essential hypertension (02/16/16) Fatigue Foot stiffness History of elevated PSA Incomplete emptying of bladder (02/16/16) Insomnia Left arm weakness Pelvic somatic dysfunction Physician orders for life-sustaining treatment (POLST) form indicates patient wish for [id number] status Segmental and somatic dysfunction of lumbar region Segmental and somatic dysfunction of rib cage Segmental and somatic dysfunction of sacral region Segmental and somatic dysfunction of thoracic region Somatic dysfunction of both lower extremities Vitamin D deficiency Surgical History Hx of cholecystectomy Status post cholecystectomy Family History Mother CVA (cerebral vascular accident) Father Diabetes mellitus Brother Renal failure Social History marital status: number of children: 1 household members: none occupational status: previously employed Previous occupational history: [employer] Smoking Status: Former smoker alcohol intake: former caffeine: Yes Smoking Status: Former smoker alcohol intake frequency: 0-2 drinks per day Substance Use Type: does not use Exam Initial Vital Signs Initial Vital Signs: Vital Signs Pulse Oximetry 87 L 03/14/23 04:28 General: Older-appearing gentleman, in no acute distress. Able to speak in complete sentences and is oriented to person and place. HEENT: Moist mucous membranes, normal sclera with reactive pupils, Neck: No JVD, supple Respiratory: Lungs are clear to auscultation, no wheezing no rales no rhonchi. Full and symmetrical air movement Cardiac: Irregular but not tachycardic, 4/6 systolic ejection murmur heard best over the entire precordium not radiating up into the neck. Abdomen: Soft, nontender, good bowel tones, no flank pain Skin: Warm and dry, no rashes Neurologic: Grossly neurologically intact with no obvious asymmetries or abnormalities. His gait is somewhat wide-based and shuffling he appears to have some weakness in his left hip extensors so throws his left hip to continue his gait. This looks well practiced and not new. Holding onto a door frame he is able to stand otherwise unsupported on his left leg independently and on his right leg independently. NIH score is 0 Extremities: No trauma, well perfused, no lower extremity edema Psych: Cooperative, appropriate insight and affect Course Orders Ordered: ED Orders 03/14/23 04:41 CT angio head and neck Stat 03/14/23 04:44 Complete Blood Count AUTO DIFF Stat Comprehensive Metabolic Panel Stat Ethanol (ETOH) Stat Magnesium Stat NT-proBNP (BNP-Adult 18+) Stat Troponin I Stat 03/14/23 05:49 Prothrombin Time INR Stat Vital Signs Vital signs: Vital Signs - 8 hr 03/14/23 04:34 03/14/23 04:28 03/14/23 04:30 Pulse Rate 67 Respiratory Rate 18 Blood Pressure 140/74 140/74 Pulse Oximetry 98 87 L Oxygen Delivery Method Room Air 03/14/23 04:30 03/14/23 05:00 03/14/23 05:16 Pulse Rate 69 73 76 Respiratory Rate 20 20 Blood Pressure Pulse Oximetry 98 98 97 Oxygen Delivery Method 03/14/23 05:16 03/14/23 05:30 Pulse Rate 118 H Respiratory Rate 34 H Blood Pressure 133/75 Pulse Oximetry 97 Oxygen Delivery Method MDM - Neuro Symptoms/Deficit Lab Data 03/14/23 04:50 03/14/23 04:50 Labs: Lab Results 03/14/23 03/14/23 Range/Units 04:50 04:50 WBC 5.7 (4.5-11.0) X10^3/uL RBC 4.58 (4.5-5.9) X10^6/uL Hgb 13.8 (13.5-17.5) g/dL Hct 41.4 (41-53) % MCV 90.4 (80-100) fL MCH 30.0 (26-34) PG MCHC 33.2 (30-36) % RDW 13.8 (11.6-14.8) % Plt Count 243 (150-400) X10^3/uL Neut % (Auto) 68.0 (50-75) % Lymph % (Auto) 19.1 L (25-40) % [place] % (Auto) 3.9 (3-14) % Eos % (Auto) 6.1 H (2-4) % Baso % (Auto) 2.9 H (0-2) % Neut # (Auto) 3900 (8262-8235) /uL Lymph # (Auto) 1100 (1829-5791) /uL [place] # (Auto) 200 (0-900) /uL Eos # (Auto) 300 (0-450) /uL Baso # (Auto) 200 H (0-100) /uL Sodium 135 L (137-145) mmol/L Potassium 4.2 (3.4-5.1) mmol/L Chloride 105 (98-107) mmol/L Carbon Dioxide 26 (22-32) mmol/L BUN 22 H (9-20) mg/dL Creatinine 1.08 (0.66-1.25) mg/dL Estimated GFR > 60 (>60) mL/min BUN/Creatinine Ratio 20.4 (6-22) Glucose 93 (80-110) mg/dL Calcium 8.1 L (8.4-10.2) mg/dL Magnesium 2.3 (1.6-2.3) mg/dL Total Bilirubin 1.8 H (0.2-1.3) mg/dL AST 23 (17-59) IU/L ALT 23 (<50) IU/L Alkaline Phosphatase 74 (38-126) U/L Troponin I < 0.012 (0.01-0.034) ng/mL NT-Pro-B Natriuret Pep 1720 H (<450) pg/mL Total Protein 6.4 (6.3-8.2) g/dL Albumin 3.6 (3.5-5.0) g/dL Globulin 2.8 (1.7-4.1) g/dL Albumin/Globulin Ratio 1.3 (1.0-2.8) Ethyl Alcohol < 10 ( - 10) mg/dL MDM Narrative Medical decision making narrative: CC: Increased vertigo and unsteady gait, this is an acute exacerbation of a chronic problem with uncertain prognosis Complicating co-morbidities: Chronic atrial fibrillation moderate fear aortic stenosis, hypertension, hyperlipidemia, chronic vertigo and chronic gait instability Data collected from: patient, Social determinants of health that may influence the patients condition: Lives independently Medical records reviewed: Please see medical records reviewed is discussed in the HPI above Differential considered: Chronic vertigo, TIA, stroke, viral syndrome, acute coronary syndrome, electrolyte abnormality, inner ear infection, upper respiratory infection Exam documented above, pertinent findings include: Exam is actually relatively benign. Does have an aortic stenosis murmur and irregular rate. Gait is abnormal but appears to be more from hip strength asymmetry rather than complete lower extremity weakness. No weakness or changes to upper extremities. Lab Test results independently reviewed as above. Pertinent findings: CBC is unremarkable with no signs of acute anemia or leukocytosis. Chemistries are reassuring. His bilirubin is slightly elevated similar to previously currently at 1.8. ProBNP is slightly elevated but less than with his most recent visit. Currently at 1720. With no clinical signs or symptoms of congestive heart failure will not act further on this particularly in light of the fact that his furosemide had been discontinued to avoid symptoms with which he is currently presenting INR 2.3 Independently reviewed EKG shows rate controlled atrial fibrillation at a rate of 70. Normal axis, no acute ischemic changes Imaging studies independently reviewed: CT and CT angiogram of the head and neck reveal no new nor acute findings. There is no evidence of intracranial bleed, masses acute stroke or changes from prior studies. Discussion: 82-year-old gentleman who presents with complaints of difficulty walking and dizziness. He is had multiple admissions and previous workups for the same complaints with no dramatic pathologic findings appreciated. Has been referred to Neurology. He has tried positional maneuvering techniques for benign positional vertigo. At this point head CT and CTA are unremarkable, EKG shows his chronic atrial fibrillation without acute changes. His exam is fairly benign with no evidence acute new neurologic findings. There is no evidence of viral or bacterial infection. He is not orthostatic. His chronic AFib is nicely rate controlled any has no clinical symptoms of symptomatic congestive heart failure At this point, unfortunately, I do not have any additional suggestions for alleviating his chronic symptoms of feeling lightheaded with the slight gait disturbance. He is referred back to his primary care physician and his card cleaner. With his reports of voiding every 2 hours he may benefit from repeat evaluation from Urology and least consideration of single episode of daily catheterization to completely drain his bladder prior to bed to see if he is able to better maximize sleep. Discharge Plan Departure Patient Disposition: Home Clinical Impression: Episodic lightheadedness, Essential hypertension, Atrial fibrillation, chronic, Gait disturbance, BPH loc w urin obs/LUTS, Hyperlipidemia Instructions: Combating Dizziness in Older Adults Activity Restrictions/Additional Instructions: I am sorry that you are continuing to suffer with this lightheadedness as well as the gait disturbance. Again, with workup in the emergency department I did not find any evidence of stroke, brain tumors or masses, bleeding inside your brain, significant anemia, heart attack, bacterial or viral infection and no suggestion of acute blood loss. I do think that continuing to use the maneuvers suggested by Dr. Pinto to help with benign positional vertigo can be quite useful. One thing that does come to mind, it is very difficult for our bodies to completely heal if for unable to get solid blocks asleep. With your urinary symptoms and needing to get up every 2 hours this may be contributing to your overall sense of non well being. I would encourage you to consider an appointment with Urology to talk about your enlarged prostate. You are on appropriate medical treatment. You may be at a point where you benefit from using a catheter at night before bed to completely empty your bladder at least once a day and see if you are able to sleep for more than 2 hours at a time. Please do schedule an appointment with your primary care doctor If you find that you are getting worse or develop any new symptoms, please feel free to return to the emergency department for further evaluation. Prescriptions: No Action multivitamin [Multiple Vitamins] 1 EACH tablet 1 tab PO DAILY Qty: 0 cholecalciferol (vitamin D3) [Vitamin D3] 2,000 UNIT tablet 2,000 unit PO DAILY Qty: 0 warfarin 5 mg tablet See Rx Instructions .ROUTE .COMPLEX Qty: 108 3RF Dose Instruction: Take 1/2 tablet daily except on and Mon take 1 or as directed by doctor ; Rx Instructions: Take 5mg Monday and Monday and 2.5mg all other days, or as directed. finasteride 5 mg tablet 5 mg PO Q OTHER DAY Qty: 45 3RF tamsulosin 0.4 mg capsule 0.4 mg PO BID Qty: 180 3RF Rx Instructions: 30 minutes following the same meal each day metoprolol succinate 100 mg tablet extended release 24 hr 100 mg PO DAILY Qty: 90 3RF Rx Instructions: TAKE WITH 25MG METOPROLOL SUCCINATE FOR TOTAL 125MG DOSE metoprolol succinate 25 mg tablet extended release 24 hr 25 mg PO DAILY Qty: 90 3RF Rx Instructions: TAKE WITH 100MG METOPROLOL SUCCINATE FOR TOTAL 125MG DOSE atorvastatin 10 mg tablet 10 mg PO BEDTIME melatonin 10 mg tablet 10 mg PO BEDTIME PRN Iron High Potency 27 mg tablet 27 mg PO DAILY Patient Comments: Iron High Potency 240mg (27mg iron) Ocuvite 30unit 5mg 150mg 1 cap PO DAILY Referrals: Alejandro Pinto DO [Primary Care Provider] - Stand Alone Forms: Patient Portal/API
[2023-03-14 05:07] LABS: Alanine Aminotransferase 23 IU/L (<50); Albumin 3.6 g/dL (3.5-5.0); Albumin Globulin Ratio 1.3 (1.0-2.8); Alkaline Phosphatase 74 U/L (38-126); Aspartate Aminotransferase 23 IU/L (17-59); BUN Creatinine Ratio 20.4 (6-22); Bilirubin Total 1.8 mg/dL (0.2-1.3); Blood Urea Nitrogen 22 mg/dL (9-20); Calcium 8.1 mg/dL (8.4-10.2); Carbon Dioxide 26 mmol/L (22-32); Chloride 105 mmol/L (98-107); Estimated Glomerular Filt Rate > 60 mL/min (>60); Ethanol (ETOH) < 10 mg/dL; Globulin 2.8 g/dL (1.7-4.1); Glucose 93 mg/dL (80-110); HEMOLYSIS < 15 (0-50); Magnesium 2.3 mg/dL (1.6-2.3); Potassium 4.2 mmol/L (3.4-5.1); Sodium 135 mmol/L (137-145); Total Protein 6.4 g/dL (6.3-8.2)
[2023-03-14 05:18] LABS: NT-proBNP (BNP-Adult 18+) 1720 pg/mL (<450); Troponin I < 0.012 ng/mL (0.01-0.034)
[2023-03-14 05:59] LABS: INR 2.3 (0.9-1.3); Prothrombin Time 26.1 SECONDS (10.1-12.7)
== END 2023-03-14 06:43 | disposition home or self-care (01) ==
PROVIDERS: Emergency Provider Emergency Medicine; Family Provider Family Medicine; PCP Family Medicine
DX: R42 Dizziness and giddiness (principal); I48.20 Chronic atrial fibrillation, unspecified; Z79.01 Long term (current) use of anticoagulants; R26.9 Unspecified abnormalities of gait and mobility; N40.1 Benign prostatic hyperplasia with lower urinary tract symptoms; E78.5 Hyperlipidemia, unspecified
CPT/HCPCS: 36415; 70496; 70498; 80053; 80320; 83735; 83880; 84484; 85025; 85610; 93005; 99283; 99284; Q9967

== ENCOUNTER 2023-04-14 23:45 | Emergency (ER) | payer MEDICARE, OTHER, SELFPAY ==
[2023-03-15 10:23] VITALS: BMI 23.5
[2023-04-14 23:53] VITALS: BP 171/74; PULSE 70; RESP 18; TEMP 36.4; O2SAT 98; BMI 23.5
[2023-04-15 00:02] VITALS: PULSE 76; RESP 22; O2SAT 98
[2023-04-15 00:03] VITALS: BP 156/79; PULSE 77; RESP 20; O2SAT 97
--- NOTE | 2023-04-15 00:25 | ED_ITS ---
HPI - Extremity Problem General Chief complaint: Chest Pain Stated complaint: Lightheaded, high BP, Chest pain earlier Time Seen by Provider: 04/15/23 00:05 Source: patient Mode of arrival: Ambulatory History of Present Illness HPI Narrative: Patient is an 82-year-old male. Has a history of aortic stenosis. Also has a history of atrial fibrillation. His on anticoagulation. Has been seen here in the emergency department multiple times for lightheadedness. Has had a very extensive workup for this. He states that today he started to have lightheaded his once again. It is similar to his prior episodes but potentially more intense. He also states he had some chest discomfort and some tingling in his left hand. The chest discomfort has resolved. He has been taking all his medications as directed. Related Data Home Medications Medication Instructions Recorded Confirmed multivitamin (Multiple Vitamins 1 tab PO DAILY ##0 03/06/13 03/15/23 tablet) cholecalciferol (vitamin D3) 50 2,000 unit PO DAILY #0 tabs 08/03/16 03/15/23 mcg (2,000 unit) tablet (Vitamin D3) Iron High Potency 27 mg PO DAILY 04/09/19 03/15/23 Ocuvite 30unit 5mg 150mg 1 cap PO DAILY 04/09/19 03/15/23 atorvastatin 10 mg tablet 10 mg PO BEDTIME 01/25/23 03/15/23 melatonin 10 mg tablet 10 mg PO BEDTIME PRN 01/25/23 03/15/23 Previous Rx's Medication Instructions Recorded warfarin 5 mg tablet See Rx Instructions .Route 10/27/22 .COMPLEX #108 tabs finasteride 5 mg tablet 5 mg PO Q OTHER DAY #45 tabs 12/29/22 metoprolol succinate 100 mg 100 mg PO DAILY #90 tabs 12/29/22 tablet,extended release 24 hr metoprolol succinate 25 mg 25 mg PO DAILY #90 tabs 12/29/22 tablet,extended release 24 hr tamsulosin 0.4 mg capsule 0.4 mg PO BID #180 caps 12/29/22 Allergies Allergy/AdvReac Type Severity Reaction Status Date / Time No Known Drug Allergies Allergy Verified 03/15/23 09:44 Review of Systems Constitutional Constitutional: Reports system reviewed and no additional complaints, except as documented Cardiovascular Cardiovascular: Reports system reviewed and no additional complaints, except as documented Respiratory Respiratory: Reports system reviewed and no additional complaints, except as doc umented Gastrointestinal Gastrointestinal: Reports system reviewed and no additional complaints, except as documented Integumentary/Breasts Skin/Breast: Reports system reviewed and no additional complaints, except as documented Neurologic Neurologic: Reports system reviewed and no additional complaints, except as documented Hematologic/Lymphatic On Anticoagulants: Yes Patient History Medical History Anticoagulated on warfarin Aortic stenosis, severe Atrial fibrillation with rapid ventricular response Balance problem 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) Cervical somatic dysfunction Chronic atrial fibrillation (01/02/18) Chronic bilateral low back pain without sciatica Cranial somatic dysfunction Diplopia Elevated random blood glucose level Erectile dysfunction Essential hypertension (02/16/16) Fatigue Foot stiffness History of elevated PSA Incomplete emptying of bladder (02/16/16) Insomnia Left arm weakness Pelvic somatic dysfunction Physician orders for life-sustaining treatment (POLST) form indicates patient wish for [id number] status Segmental and somatic dysfunction of lumbar region Segmental and somatic dysfunction of rib cage Segmental and somatic dysfunction of sacral region Segmental and somatic dysfunction of thoracic region Somatic dysfunction of both lower extremities Vitamin D deficiency Surgical History Hx of cholecystectomy Status post cholecystectomy Family History Mother CVA (cerebral vascular accident) Father Diabetes mellitus Brother Renal failure Social History marital status: number of children: 1 household members: none occupational status: previously employed Previous occupational history: [employer] Smoking Status: Former smoker alcohol intake: former caffeine: Yes Smoking Status: Former smoker alcohol intake frequency: 0-2 drinks per day Substance Use Type: does not use Exam Initial Vital Signs Initial Vital Signs: Vital Signs Temperature 97.5 F L 04/14/23 23:53 Pulse Rate 70 04/14/23 23:53 Respiratory Rate 18 04/14/23 23:53 Blood Pressure 171/74 H 04/14/23 23:53 Pulse Oximetry 98 04/14/23 23:53 Oxygen Delivery Method Room Air 04/14/23 23:53 Const General: cooperative, comfortable and No ill appearing HENMT Head: normal to inspection and normocephalic Resp Effort & Inspection: normal respiratory effort Auscultation: clear to auscultation bilaterally Cardio Rate: regular rate Rhythm: abnormal rhythm Heart Sounds: murmur Skin General: no rashes or lesions noted Neuro General: patient alert, patient awake, patient oriented x3 and moves all e xtremities Extrem General: normal to inspection and capillary refill normal Psych Appearance: grossly normal Scores HEART Score Heart Score history: Slightly Suspicious Heart Score EKG: Normal Heart Score Age: > or = 65 years old Heart Score risk factors: > 3 risk factors or hx of atherosclerotic disease Heart Score troponin: < or = to normal limit Heart Score Total: 4 Course Orders Ordered: ED Orders 04/15/23 00:26 EKG-12 Lead Stat 04/15/23 00:35 Complete Blood Count AUTO DIFF Stat Comprehensive Metabolic Panel Stat Lipase Stat Troponin & CK Cardiac Panel Stat Vital Signs Vital signs: Vital Signs - 8 hr 04/14/23 23:53 Temperature 97.5 F L Pulse Rate 70 Respiratory Rate 18 Blood Pressure 171/74 H Pulse Oximetry 98 Oxygen Delivery Method Room Air MDM - Extremity (Nontraumatic) Lab Data 04/15/23 00:35 04/15/23 00:35 Labs: Lab Results 04/15/23 04/15/23 Range/Units 00:35 00:35 WBC 6.7 (4.5-11.0) X10^3/uL RBC 4.48 L (4.5-5.9) X10^6/uL Hgb 13.8 (13.5-17.5) g/dL Hct 40.4 L (41-53) % MCV 90.2 (80-100) fL MCH 30.8 (26-34) PG MCHC 34.2 (30-36) % RDW 13.8 (11.6-14.8) % Plt Count 242 (150-400) X10^3/uL Neut % (Auto) 67.6 (50-75) % Lymph % (Auto) 18.7 L (25-40) % [place] % (Auto) 9.4 (3-14) % Eos % (Auto) 3.3 (2-4) % Baso % (Auto) 1.0 (0-2) % Neut # (Auto) 4500 (9061-5762) /uL Lymph # (Auto) 1200 (5681-7487) /uL [place] # (Auto) 600 (0-900) /uL Eos # (Auto) 200 (0-450) /uL Baso # (Auto) 100 (0-100) /uL Sodium 134 L (137-145) mmol/L Potassium 4.2 (3.4-5.1) mmol/L Chloride 103 (98-107) mmol/L Carbon Dioxide 26 (22-32) mmol/L BUN 22 H (9-20) mg/dL Creatinine 1.20 (0.66-1.25) mg/dL Estimated GFR 60 (>60) mL/min BUN/Creatinine Ratio 18.3 (6-22) Glucose 105 (80-110) mg/dL Calcium 8.1 L (8.4-10.2) mg/dL Total Bilirubin 1.3 (0.2-1.3) mg/dL AST 24 (17-59) IU/L ALT 29 (<50) IU/L Alkaline Phosphatase 84 (38-126) U/L Total Creatine Kinase 60 (55-170) U/L CK-MB (CK-2) TNP CK-MB (CK-2) Rel Index TNP Troponin I < 0.012 (0.01-0.034) ng/mL Total Protein 6.6 (6.3-8.2) g/dL Albumin 3.7 (3.5-5.0) g/dL Globulin 2.9 (1.7-4.1) g/dL Albumin/Globulin Ratio 1.3 (1.0-2.8) Lipase 334 H (23-300) U/L ECG Data Interpretation: Atrial fibrillation Ventricular rate is 70 Normal axis Normal QRS Normal QTC No ST T wave changes MDM Narrative Medical decision making narrative: Patient has had a fairly extensive workup for his lightheadedness. He has an appointment with his primary doctor Monday next week for further evaluation of this. Patient has an atrial fibrillation. He is anticoagulated. He is rate controlled. Troponin is negative. He has no chest discomfort. Low suspicion that the patient's symptoms today are ACS related. Will discharge patient home with instructions to keep his appointment with his primary doctor on Monday of next week. He was given return precautions. He expressed understanding Discharge Plan Departure Patient Disposition: Home Clinical Impression: Atrial fibrillation, Lightheadedness Instructions: DI for Dizziness-Nonvertigo Activity Restrictions/Additional Instructions: Recommend that you keep your appointment with your primary doctor that you have scheduled for next week. Continue to take all your medications as directed. Return to the emergency department for new or worsening symptoms. Prescriptions: No Action multivitamin [Multiple Vitamins] 1 EACH tablet 1 tab PO DAILY Qty: 0 cholecalciferol (vitamin D3) [Vitamin D3] 2,000 UNIT tablet 2,000 unit PO DAILY Qty: 0 warfarin 5 mg tablet See Rx Instructions .ROUTE .COMPLEX Qty: 108 3RF Dose Instruction: Take 1/2 tablet daily except on and Mon take 1 or as directed by doctor ; Rx Instructions: Take 5mg Monday and Monday and 2.5mg all other days, or as directed. finasteride 5 mg tablet 5 mg PO Q OTHER DAY Qty: 45 3RF tamsulosin 0.4 mg capsule 0.4 mg PO BID Qty: 180 3RF Rx Instructions: 30 minutes following the same meal each day metoprolol succinate 100 mg tablet extended release 24 hr 100 mg PO DAILY Qty: 90 3RF Rx Instructions: TAKE WITH 25MG METOPROLOL SUCCINATE FOR TOTAL 125MG DOSE metoprolol succinate 25 mg tablet extended release 24 hr 25 mg PO DAILY Qty: 90 3RF Rx Instructions: TAKE WITH 100MG METOPROLOL SUCCINATE FOR TOTAL 125MG DOSE atorvastatin 10 mg tablet 10 mg PO BEDTIME melatonin 10 mg tablet 10 mg PO BEDTIME PRN Iron High Potency 27 mg tablet 27 mg PO DAILY Patient Comments: Iron High Potency 240mg (27mg iron) Ocuvite 30unit 5mg 150mg 1 cap PO DAILY Referrals: Alejandro Pinto DO [Primary Care Provider] - Stand Alone Forms: Patient Portal/API
[2023-04-15 00:30] VITALS: PULSE 78; RESP 28; O2SAT 97
[2023-04-15 00:51] LABS: Add Manual Diff / Slide Review NO; Basophils Absolute Auto 100 /uL (0-100); Eosinophils Absolute Auto 200 /uL (0-450); Eosinophils Percent Auto 3.3 % (2-4); Hematocrit 40.4 % (41-53); Hemoglobin 13.8 g/dL (13.5-17.5); Lymphocytes Absolute Auto 1200 /uL (1100-4500); Lymphocytes Percent Auto 18.7 % (25-40); Mean Corpuscular HGB Conc 34.2 % (30-36); Mean Corpuscular Hemoglobin 30.8 PG (26-34); Mean Corpuscular Volume 90.2 fL (80-100); Monocytes Absolute Auto 600 /uL (0-900); Monocytes Percent Auto 9.4 % (3-14); Neutrophils Absolute Auto 4500 /uL (1500-7000); Neutrophils Percent Auto 67.6 % (50-75); Platelet Count 242 X10^3/uL (150-400); Red Blood Cell Count 4.48 X10^6/uL (4.5-5.9); Red Cell Distribution Width 13.8 % (11.6-14.8); White Blood Cell Count 6.7 X10^3/uL (4.5-11.0)
[2023-04-15 00:57] LABS: Alanine Aminotransferase 29 IU/L (<50); Albumin 3.7 g/dL (3.5-5.0); Albumin Globulin Ratio 1.3 (1.0-2.8); Alkaline Phosphatase 84 U/L (38-126); Aspartate Aminotransferase 24 IU/L (17-59); BUN Creatinine Ratio 18.3 (6-22); Bilirubin Total 1.3 mg/dL (0.2-1.3); Blood Urea Nitrogen 22 mg/dL (9-20); Calcium 8.1 mg/dL (8.4-10.2); Carbon Dioxide 26 mmol/L (22-32); Chloride 103 mmol/L (98-107); Creatine Kinase 60 U/L (55-170); Estimated Glomerular Filt Rate 60 mL/min (>60); Globulin 2.9 g/dL (1.7-4.1); Glucose 105 mg/dL (80-110); HEMOLYSIS < 15 (0-50); Lipase 334 U/L (23-300); Potassium 4.2 mmol/L (3.4-5.1); Sodium 134 mmol/L (137-145); Total Protein 6.6 g/dL (6.3-8.2)
[2023-04-15 01:00] VITALS: BP 136/67; PULSE 78; RESP 20; O2SAT 97
[2023-04-15 01:08] LABS: Troponin I < 0.012 ng/mL (0.01-0.034)
[2023-04-15 01:30] VITALS: BP 148/78; PULSE 71; RESP 17; O2SAT 98
== END 2023-04-15 02:04 | disposition home or self-care (01) ==
PROVIDERS: Emergency Provider Emergency Medicine; Family Provider Family Medicine; PCP Family Medicine
DX: I48.91 Unspecified atrial fibrillation (principal); R42 Dizziness and giddiness
CPT/HCPCS: 36415; 80053; 82550; 83690; 84484; 85025; 93005; 93010; 99283

== ENCOUNTER 2023-05-21 15:28 | Emergency (ER) | payer MEDICARE, OTHER, SELFPAY ==
[2023-03-15 10:23] VITALS: BMI 23.5
[2023-05-21] VITALS (9 sets, daily range): BP systolic 153–178; BP diastolic 77–99; PULSE 72–112; RESP 15–22; TEMP 36.7; O2SAT 97; BMI 23.5
--- NOTE | 2023-05-21 15:42 | DI.RAD.S_ITS ---
PROCEDURE: XR CHEST 1V INDICATIONS: chest pain TECHNIQUE: One view of the chest was acquired. COMPARISON: [facility], CR, XR CHEST 1V, 08/09/2022, 11:10. FINDINGS: Surgical changes and devices: None. Lungs and pleura: Bibasilar interstitial prominence unchanged prior study. No pleural effusions or pneumothorax. Blunting of costophrenic angles bilaterally. Granulomas are seen both lung tang. Mediastinum: Mediastinal contours appear normal. Heart size is enlarged. Bones and chest wall: No suspicious bony lesions. Overlying soft tissues appear unremarkable. IMPRESSION: Bibasilar interstitial prominence, unchanged compared to the prior study. Dictated by: Jaycob Mancilla M.D. on 05/21/2023 at 15:05 Approved by: Jaycob Mancilla M.D. on 05/21/2023 at 15:08
[2023-05-21 16:08] LABS: Add Manual Diff / Slide Review NO; Basophils Absolute Auto 100 /uL (0-100); Basophils Percent Auto 0.9 % (0-2); Eosinophils Absolute Auto 300 /uL (0-450); Hemoglobin 14.3 g/dL (13.5-17.5); Lymphocytes Absolute Auto 1100 /uL (1100-4500); Mean Corpuscular Hemoglobin 30.9 PG (26-34); Mean Corpuscular Volume 90.9 fL (80-100); Monocytes Absolute Auto 700 /uL (0-900); Monocytes Percent Auto 10.8 % (3-14); Neutrophils Absolute Auto 4700 /uL (1500-7000); Neutrophils Percent Auto 68.3 % (50-75); Platelet Count 260 X10^3/uL (150-400); Red Blood Cell Count 4.62 X10^6/uL (4.5-5.9); Red Cell Distribution Width 14.2 % (11.6-14.8); White Blood Cell Count 6.9 X10^3/uL (4.5-11.0)
[2023-05-21 16:11] LABS: INR 2.6 (0.9-1.3); Prothrombin Time 29.6 SECONDS (10.1-12.7)
[2023-05-21 16:13] LABS: Alanine Aminotransferase 28 IU/L (<50); Albumin 3.8 g/dL (3.5-5.0); Albumin Globulin Ratio 1.2 (1.0-2.8); Alkaline Phosphatase 101 U/L (38-126); Aspartate Aminotransferase 26 IU/L (17-59); BUN Creatinine Ratio 19.3 (6-22); Bilirubin Total 1.6 mg/dL (0.2-1.3); Blood Urea Nitrogen 22 mg/dL (9-20); Calcium 8.2 mg/dL (8.4-10.2); Carbon Dioxide 24 mmol/L (22-32); Chloride 104 mmol/L (98-107); Creatine Kinase 67 U/L (55-170); Estimated Glomerular Filt Rate > 60 mL/min (>60); Globulin 3.2 g/dL (1.7-4.1); Glucose 110 mg/dL (80-110); HEMOLYSIS 18 (0-50); Lipase 348 U/L (23-300); Magnesium 2.1 mg/dL (1.6-2.3); Potassium 4.2 mmol/L (3.4-5.1); Sodium 135 mmol/L (137-145)
[2023-05-21 16:14] LABS: PTT Partial Thromboplastin Tim 45 SECONDS (26-36)
[2023-05-21 16:18] LABS: Appearance Urine UA CLEAR; Bilirubin Urine UA NEGATIVE (NEGATIVE); Color Urine UA YELLOW; Glucose Urine UA NEGATIVE (Negative); Ketones Urine UA NEGATIVE (NEGATIVE); Leukocyte Esterase Urine UA NEGATIVE (NEGATIVE); Nitrite Urine UA NEGATIVE (Negative); Occult Blood Urine UA NEGATIVE (Negative); Protein Urine UA NEGATIVE (Negative); Specific Gravity Urine UA 1.015 (1.000-1.035); Urobilinogen Urine UA 0.2 E.U./dL (0.2)
[2023-05-21 16:23] LABS: NT-proBNP (BNP-Adult 18+) 1960 pg/mL (<450)
[2023-05-21 16:25] LABS: Troponin I < 0.012 ng/mL (0.01-0.034)
--- NOTE | 2023-05-21 16:26 | ED_ITS ---
HPI - Dizziness <Martha Iverson PA-C - Last Filed: 05/21/23 20:07> General Chief Complaint: Dizziness Stated Complaint: lightheaded, coldhands, not steaded on ft, T-7 Time Seen by Provider: 05/21/23 16:23 Source: patient Mode of arrival: Ambulatory History of Present Illness HPI Narrative: This is an 82-year-old male with a history of atrial fibrillation rate controlled, on warfarin, ataxia, severe aortic stenosis, near-syncope and essential hypertension who presents with concern for dizziness. Patient states that this feels similar to his previous episodes of which he has had many, although he feels he has been dealing with these symptoms for about the past week and this seems atypically long for him. He states that over the past week whenever he gets up from sitting to standing and sometimes when he is ambulating and turns quickly he feels lightheaded. He states it is not exactly dizziness so much as a sensation that he is ?on a cloud?. His symptoms are the same as those he has been dealing with for months on and off, except lately he has been feeling like when this happens his hands and feet become cold. He has not noticed discoloration and states that they become warm again in time but he is concerned he may have a circulation problem. He states that the last time he was seen for this he felt dehydrated and improved after getting fluids. He does follow with cardiology. He says he has been taking all of his regular medications has been eating and drinking normally and has had normal out go for him, he denies syncope, current dizziness, palpitations, chest pain, nausea, vom iting, abdominal pain or any other symptoms. Related Data Home Medications Medication Instructions Recorded Confirmed multivitamin (Multiple Vitamins 1 tab PO DAILY ##0 03/06/13 04/18/23 tablet) cholecalciferol (vitamin D3) 50 2,000 unit PO DAILY #0 tabs 08/03/16 04/18/23 mcg (2,000 unit) tablet (Vitamin D3) Iron High Potency 27 mg PO DAILY 04/09/19 04/18/23 Ocuvite 30unit 5mg 150mg 1 cap PO DAILY 04/09/19 04/18/23 atorvastatin 10 mg tablet 10 mg PO BEDTIME 01/25/23 04/18/23 melatonin 10 mg tablet 10 mg PO BEDTIME PRN 01/25/23 04/18/23 Previous Rx's Medication Instructions Recorded warfarin 5 mg tablet See Rx Instructions .Route 10/27/22 .COMPLEX #108 tabs finasteride 5 mg tablet 5 mg PO Q OTHER DAY #45 tabs 12/29/22 metoprolol succinate 100 mg 100 mg PO DAILY #90 tabs 12/29/22 tablet,extended release 24 hr metoprolol succinate 25 mg 25 mg PO DAILY #90 tabs 12/29/22 tablet,extended release 24 hr tamsulosin 0.4 mg capsule 0.4 mg PO BID #180 caps 12/29/22 Allergies Allergy/AdvReac Type Severity Reaction Status Date / Time No Known Drug Allergies Allergy Verified 04/18/23 16:15 Review of Systems <Martha Iverson PA-C - Last Filed: 05/21/23 20:07> Review of Systems Narrative: See HPI Patient History <Martha Iverson PA-C - Last Filed: 05/21/23 20:07> Medical History Anticoagulated on warfarin Aortic stenosis, severe Atrial fibrillation with rapid ventricular response Balance problem 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) Cervical somatic dysfunction Chronic atrial fibrillation (01/02/18) Chronic bilateral low back pain without sciatica Cranial somatic dysfunction Diplopia Elevated random blood glucose level Erectile dysfunction Essential hypertension (02/16/16) Fatigue Foot stiffness History of elevated PSA Incomplete emptying of bladder (02/16/16) Insomnia Left arm weakness Pelvic somatic dysfunction Physician orders for life-sustaining treatment (POLST) form indicates patient wish for [id number] status Segmental and somatic dysfunction of lumbar region Segmental and somatic dysfunction of rib cage Segmental and somatic dysfunction of sacral region Segmental and somatic dysfunction of thoracic region Somatic dysfunction of both lower extremities Vitamin D deficiency Surgical History Hx of cholecystectomy Status post cholecystectomy Family History Mother CVA (cerebral vascular accident) Father Diabetes mellitus Brother Renal failure Social History marital status: number of children: 1 household members: none occupational status: previously employed Previous occupational history: [employer] Smoking Status: Former smoker alcohol intake: former caffeine: Yes Smoking Status: Former smoker alcohol intake frequency: 0-2 drinks per day Substance Use Type: does not use Exam <Martha Iverson PA-C - Last Filed: 05/21/23 20:07> Narrative Exam Narrative: GENERAL: 82 year old patient appears stated age. Well-developed patient, in mild distress. HEAD: Atraumatic. Normocephalic. EYES: Pupils equal round and reactive. Extraocular motions intact. No scleral icterus. No injection or drainage. ENT: Nose without bleeding, purulent drainage. Airway patent. NECK: Trachea midline. Non tender CARDIOVASCULAR: irregularly irregular rate and rhythm prominent pansystolic murmur best heard over aortic/pulmonic, no gallops, or rubs, no carotid bruits. RESPIRATORY: Clear to auscultation. Breath sounds equal bilaterally. No wheezes, rales, or rhonchi. GASTROINTESTINAL: Abdomen protruberant, soft, non-tender, nondistended. EXTREMITIES: No edema or joint tenderness, strong equal bilateral pedal pulses, skin color is pink, skin is warm to touch in hands and feet. BACK: Nontender without deformity or crepitance. No flank tenderness. NEURO: AOx3. SKIN: No rash or erythema of visible areas Initial Vital Signs Initial Vital Signs: Vital Signs Temperature 98.0 F 05/21/23 15:36 Pulse Rate 84 05/21/23 15:36 Respiratory Rate 16 05/21/23 15:36 Blood Pressure 165/85 H 05/21/23 15:36 Pulse Oximetry 97 05/21/23 15:36 Oxygen Delivery Method Room Air 05/21/23 15:36 <Nahomi Chavira DO - Last Filed: 05/22/23 08:14> Initial Vital Signs Initial Vital Signs: Vital Signs Temperature 98.0 F 05/21/23 15:36 Pulse Rate 84 05/21/23 15:36 Respiratory Rate 16 05/21/23 15:36 Blood Pressure 165/85 H 05/21/23 15:36 Pulse Oximetry 97 05/21/23 15:36 Oxygen Delivery Method Room Air 05/21/23 15:36 Scores <Martha Iverson PA-C - Last Filed: 05/21/23 20:07> HEART Score Heart Score history: Slightly Suspicious Heart Score EKG: Normal Heart Score Age: > or = 65 years old Heart Score risk factors: 1-2 risk factors Heart Score troponin: < or = to normal limit Heart Score Total: 3 <Nahomi Chavira DO - Last Filed: 05/22/23 08:14> HEART Score Heart Score Total: 3 Course <Martha Iverson PA-C - Last Filed: 05/21/23 20:07> Orders Ordered: ED Orders 05/21/23 15:35 Urinalysis and Microscopic Stat 05/21/23 15:42 XR chest 1V Stat 05/21/23 15:49 EKG-12 Lead Stat 05/21/23 15:53 Complete Blood Count AUTO DIFF Stat Comprehensive Metabolic Panel Stat Lipase Stat Magnesium Stat PTT Partial Thromboplastin Jerry Stat Prothrombin Time INR Stat Troponin & CK Cardiac Panel Stat 05/21/23 15:56 BNP [NT-proBNP (BNP-Adult 18+)] Stat Vital Signs Vital signs: Vital Signs - 8 hr 05/21/23 15:36 05/21/23 15:49 05/21/23 15:52 Temperature 98.0 F Pulse Rate 84 82 82 Respiratory Rate 16 17 18 Blood Pressure 165/85 H Pulse Oximetry 97 Oxygen Delivery Method Room Air 05/21/23 15:52 05/21/23 16:00 05/21/23 16:00 Temperature Pulse Rate 84 Respiratory Rate 22 Blood Pressure 178/91 H 153/77 H Pulse Oximetry Oxygen Delivery Method 05/21/23 16:30 05/21/23 17:00 05/21/23 17:00 Temperature Pulse Rate 112 H 74 Respiratory Rate 22 20 Blood Pressure 165/78 H Pulse Oximetry Oxygen Delivery Method 05/21/23 17:30 05/21/23 18:00 05/21/23 18:00 Temperature Pulse Rate 72 80 Respiratory Rate 17 15 Blood Pressure 174/99 H Pulse Oximetry Oxygen Delivery Method 05/21/23 18:30 05/21/23 18:30 Temperature Pulse Rate 75 Respiratory Rate 15 Blood Pressure 166/84 H Pulse Oximetry Oxygen Delivery Method <Nahomi Chavira DO - Last Filed: 05/22/23 08:14> Orders Ordered: ED Orders 05/21/23 15:35 Urinalysis and Microscopic Stat 05/21/23 15:42 XR chest 1V Stat 05/21/23 15:49 EKG-12 Lead Stat 05/21/23 15:53 Complete Blood Count AUTO DIFF Stat Comprehensive Metabolic Panel Stat Lipase Stat Magnesium Stat PTT Partial Thromboplastin Jerry Stat Prothrombin Time INR Stat Troponin & CK Cardiac Panel Stat 05/21/23 15:56 BNP [NT-proBNP (BNP-Adult 18+)] Stat Vital Signs Vital signs: Vital Signs - 8 hr 05/21/23 15:36 05/21/23 15:49 05/21/23 15:52 Temperature 98.0 F Pulse Rate 84 82 82 Respiratory Rate 16 17 18 Blood Pressure 165/85 H Pulse Oximetry 97 Oxygen Delivery Method Room Air 05/21/23 15:52 05/21/23 16:00 05/21/23 16:00 Temperature Pulse Rate 84 Respiratory Rate 22 Blood Pressure 178/91 H 153/77 H Pulse Oximetry Oxygen Delivery Method 05/21/23 16:30 05/21/23 17:00 05/21/23 17:00 Temperature Pulse Rate 112 H 74 Respiratory Rate 22 20 Blood Pressure 165/78 H Pulse Oximetry Oxygen Delivery Method 05/21/23 17:30 05/21/23 18:00 05/21/23 18:00 Temperature Pulse Rate 72 80 Respiratory Rate 17 15 Blood Pressure 174/99 H Pulse Oximetry Oxygen Delivery Method 05/21/23 18:30 05/21/23 18:30 Temperature Pulse Rate 75 Respiratory Rate 15 Blood Pressure 166/84 H Pulse Oximetry Oxygen Delivery Method MDM - Dizziness <Martha Iverson PA-C - Last Filed: 05/21/23 20:07> Differential Diagnosis Differential diagnosis: Likely benign paroxysmal positional vertigo, orthostatic hypotension and other (Aortic valve stenosis) Medical Records Attestation: I reviewed the patient's medical records. Lab Data Attestation: I reviewed the patient's lab results. 05/21/23 15:53 05/21/23 15:53 Labs: Lab Results 05/21/23 05/21/23 05/21/23 Range/Units 15:35 15:53 15:53 WBC 6.9 (4.5-11.0) X10^3/uL RBC 4.62 (4.5-5.9) X10^6/uL Hgb 14.3 (13.5-17.5) g/dL Hct 42.0 (41-53) % MCV 90.9 (80-100) fL MCH 30.9 (26-34) PG MCHC 34.0 (30-36) % RDW 14.2 (11.6-14.8) % Plt Count 260 (150-400) X10^3/uL Neut % (Auto) 68.3 (50-75) % Lymph % (Auto) 16.0 L (25-40) % [place] % (Auto) 10.8 (3-14) % Eos % (Auto) 4.0 (2-4) % Baso % (Auto) 0.9 (0-2) % Neut # (Auto) 4700 (2676-4145) /uL Lymph # (Auto) 1100 (3122-5951) /uL [place] # (Auto) 700 (0-900) /uL Eos # (Auto) 300 (0-450) /uL Baso # (Auto) 100 (0-100) /uL PT 29.6 H (10.1-12.7) SECONDS INR 2.6 H (0.9-1.3) APTT 45 H (26-36) SECONDS Sodium (137-145) mmol/L Potassium (3.4-5.1) mmol/L Chloride (98-107) mmol/L Carbon Dioxide (22-32) mmol/L BUN (9-20) mg/dL Creatinine (0.66-1.25) mg/dL Estimated GFR (>60) mL/min BUN/Creatinine Ratio (6-22) Glucose (80-110) mg/dL Calcium (8.4-10.2) mg/dL Magnesium (1.6-2.3) mg/dL Total Bilirubin (0.2-1.3) mg/dL AST (17-59) IU/L ALT (<50) IU/L Alkaline Phosphatase (38-126) U/L Total Creatine Kinase (55-170) U/L Troponin I (0.01-0.034) ng/mL NT-Pro-B Natriuret Pep (<450) pg/mL Total Protein (6.3-8.2) g/dL Albumin (3.5-5.0) g/dL Globulin (1.7-4.1) g/dL Albumin/Globulin Ratio (1.0-2.8) Lipase (23-300) U/L Urine Color Yellow Urine Appearance Clear Urine pH 6.0 (4.5-8.0) Ur Specific [place] 1.015 (1.000-1.035) Urine Protein Negative (Negative) Urine Glucose (UA) Negative (Negative) g/dL Urine Ketones Negative (NEGATIVE) Urine Occult Blood Negative (Negative) Urine Nitrate Negative (Negative) Urine Bilirubin Negative (NEGATIVE) Urine Urobilinogen 0.2 (0.2) E.U./dL Ur Leukocyte Esterase Negative (NEGATIVE) Urine RBC None seen (0-5/HPF) Urine WBC None seen (0-5/HPF) Ur Squamous Epith Cells 0-1 /hpf (0-5/HPF) Urine Bacteria None seen (None) Ur Culture Indicated? Cult not indicated 05/21/23 05/21/23 Range/Units 15:53 15:56 WBC (4.5-11.0) X10^3/uL RBC (4.5-5.9) X10^6/uL Hgb (13.5-17.5) g/dL Hct (41-53) % MCV (80-100) fL MCH (26-34) PG MCHC (30-36) % RDW (11.6-14.8) % Plt Count (150-400) X10^3/uL Neut % (Auto) (50-75) % Lymph % (Auto) (25-40) % [place] % (Auto) (3-14) % Eos % (Auto) (2-4) % Baso % (Auto) (0-2) % Neut # (Auto) (1944-8430) /uL Lymph # (Auto) (6629-5064) /uL [place] # (Auto) (0-900) /uL Eos # (Auto) (0-450) /uL Baso # (Auto) (0-100) /uL PT (10.1-12.7) SECONDS INR (0.9-1.3) APTT (26-36) SECONDS Sodium 135 L (137-145) mmol/L Potassium 4.2 (3.4-5.1) mmol/L Chloride 104 (98-107) mmol/L Carbon Dioxide 24 (22-32) mmol/L BUN 22 H (9-20) mg/dL Creatinine 1.14 (0.66-1.25) mg/dL Estimated GFR > 60 (>60) mL/min BUN/Creatinine Ratio 19.3 (6-22) Glucose 110 (80-110) mg/dL Calcium 8.2 L (8.4-10.2) mg/dL Magnesium 2.1 (1.6-2.3) mg/dL Total Bilirubin 1.6 H (0.2-1.3) mg/dL AST 26 (17-59) IU/L ALT 28 (<50) IU/L Alkaline Phosphatase 101 (38-126) U/L Total Creatine Kinase 67 (55-170) U/L Troponin I < 0.012 (0.01-0.034) ng/mL NT-Pro-B Natriuret Pep 1960 H (<450) pg/mL Total Protein 7.0 (6.3-8.2) g/dL Albumin 3.8 (3.5-5.0) g/dL Globulin 3.2 (1.7-4.1) g/dL Albumin/Globulin Ratio 1.2 (1.0-2.8) Lipase 348 H (23-300) U/L Urine Color Urine Appearance Urine pH (4.5-8.0) Ur Specific [place] (1.000-1.035) Urine Protein (Negative) Urine Glucose (UA) (Negative) g/dL Urine Ketones (NEGATIVE) Urine Occult Blood (Negative) Urine Nitrate (Negative) Urine Bilirubin (NEGATIVE) Urine Urobilinogen (0.2) E.U./dL Ur Leukocyte Esterase (NEGATIVE) Urine RBC (0-5/HPF) Urine WBC (0-5/HPF) Ur Squamous Epith Cells (0-5/HPF) Urine Bacteria (None) Ur Culture Indicated? Urine Dip Bedside Urine Glucose Negative Bedside Urine Bilirubin - Negative Bedside Urine Ketone - Negative Urine Specific [place] 1.015 Bedside Urine Occult Blood - Negative Bedside Urine pH 6.0 Bedside Urine Protein - Negative Bedside Urine Urobilinogen - Negative Bedside Urine Nitrite - Negative Bedside Urine Leukocytes +/- 15 Esterase Imaging Data Chest x-ray: My Impression: Agree with Radiology interpretation Radiologist's Impression: [address] [id number] XRay Report Signed Patient: Nestor Mercedes MR#: [id number] : 1940 Acct:[id number] Age/Sex: 82 / M Date of Service: 05/21/23 Loc: ED Accession Number: [id number] ?? Procedure: XR chest 1V Ordering Provider: Nahomi Chavira D.O. PROCEDURE:? XR CHEST 1V ? INDICATIONS:? chest pain ? TECHNIQUE:? One view of the chest was acquired.? ? COMPARISON:? [facility], CR, XR CHEST 1V, 08/09/2022, 11:10. ? FINDINGS:? ? Surgical changes and devices:? None.? ? Lungs and pleura:? Bibasilar interstitial prominence unchanged prior study.? No pleural effusions or pneumothorax.? Blunting of costophrenic angles bilaterally.? Granulomas are seen both lung tang. ? Mediastinum:? Mediastinal contours appear normal.? Heart size is enlarged.? ? Bones and chest wall:? No suspicious bony lesions.? Overlying soft tissues appear unremarkable.? ? IMPRESSION:? Bibasilar interstitial prominence, unchanged compared to the prior study. ? ? Dictated by: Jaycob Mancilla M.D. on 05/21/2023 at 15:05 ? ? Approved by: Jaycob Mancilla M.D. on 05/21/2023 at 15:08?? ECG Data Interpretation: Heart rate 77 atrial fibrillation no other ectopy or ST changes noted. Treatment and disposition Shared decision making:: Shared decision-making was used to determine this patient's plan of care and evaluation in the emergency department. MDM Narrative Medical decision making narrative: This is an 82-year-old male with a history of atrial fibrillation rate c ontrolled, aortic stenosis ataxia who presents with concern for intermittent lightheadedness for the past week. Patient has been dealing with these symptoms for months and states that he is here today because the symptoms were more persistent happening more often over the past week and because he felt that his hands and feet got cold when he had the symptoms. Exam today is notable for prominent hoyos systolic aortic murmur, did review the patient's chart and last echo was in 2020 notable for EF of 55-60% with a severely dilated left atrium and calcific severe aortic stenosis as well as tricuspid regurgitation. Patient's symptoms are occurring specifically with standing and sometimes with sudden movement if he is walking and turned suddenly, he has not had any recent syncopal episodes or falls. I suspect that his symptoms are related to his aortic stenosis/heart valve as well as for vascular tone second-stage, he did receive fluids today in the emergency department had no persistent symptoms, his exam was not suspicious for neurologic etiology for his symptoms. His other labs returned unremarkable today including troponin, he did have increased BNP however this is baseline for him based on chart review. He has no shortness of breath and x-ray is unremarkable unchanged from previous recent studies. Patient's EKG is AFib rate controlled heart rate of 77 is otherwise unremarka ble. Patient is advised to follow up closely with his primary care provider and executive producer [employer] and encouraged that he may warrant a repeat echocardiogram as it has been a year and a half since he is had 1 and his symptoms seem to be worsening. He is had no chest pain shortness of breath or other concerning symptoms suggestive of cardiac etiology. Repeat troponin is not obtained today. Return precautions provided, follow-up plan discussed, all questions answered. <Nahomi Chavira, - Last Filed: 05/22/23 08:14> Lab Data Labs: Lab Results 05/21/23 05/21/23 05/21/23 Range/Units 15:35 15:53 15:53 WBC 6.9 (4.5-11.0) X10^3/uL RBC 4.62 (4.5-5.9) X10^6/uL Hgb 14.3 (13.5-17.5) g/dL Hct 42.0 (41-53) % MCV 90.9 (80-100) fL MCH 30.9 (26-34) PG MCHC 34.0 (30-36) % RDW 14.2 (11.6-14.8) % Plt Count 260 (150-400) X10^3/uL Neut % (Auto) 68.3 (50-75) % Lymph % (Auto) 16.0 L (25-40) % [place] % (Auto) 10.8 (3-14) % Eos % (Auto) 4.0 (2-4) % Baso % (Auto) 0.9 (0-2) % Neut # (Auto) 4700 (8446-3479) /uL Lymph # (Auto) 1100 (7362-9132) /uL [place] # (Auto) 700 (0-900) /uL Eos # (Auto) 300 (0-450) /uL Baso # (Auto) 100 (0-100) /uL PT 29.6 H (10.1-12.7) SECONDS INR 2.6 H (0.9-1.3) APTT 45 H (26-36) SECONDS Sodium (137-145) mmol/L Potassium (3.4-5.1) mmol/L Chloride (98-107) mmol/L Carbon Dioxide (22-32) mmol/L BUN (9-20) mg/dL Creatinine (0.66-1.25) mg/dL Estimated GFR (>60) mL/min BUN/Creatinine Ratio (6-22) Glucose (80-110) mg/dL Calcium (8.4-10.2) mg/dL Magnesium (1.6-2.3) mg/dL Total Bilirubin (0.2-1.3) mg/dL AST (17-59) IU/L ALT (<50) IU/L Alkaline Phosphatase (38-126) U/L Total Creatine Kinase (55-170) U/L Troponin I (0.01-0.034) ng/mL NT-Pro-B Natriuret Pep (<450) pg/mL Total Protein (6.3-8.2) g/dL Albumin (3.5-5.0) g/dL Globulin (1.7-4.1) g/dL Albumin/Globulin Ratio (1.0-2.8) Lipase (23-300) U/L Urine Color Yellow Urine Appearance Clear Urine pH 6.0 (4.5-8.0) Ur Specific [place] 1.015 (1.000-1.035) Urine Protein Negative (Negative) Urine Glucose (UA) Negative (Negative) g/dL Urine Ketones Negative (NEGATIVE) Urine Occult Blood Negative (Negative) Urine Nitrate Negative (Negative) Urine Bilirubin Negative (NEGATIVE) Urine Urobilinogen 0.2 (0.2) E.U./dL Ur Leukocyte Esterase Negative (NEGATIVE) Urine RBC None seen (0-5/HPF) Urine WBC None seen (0-5/HPF) Ur Squamous Epith Cells 0-1 /hpf (0-5/HPF) Urine Bacteria None seen (None) Ur Culture Indicated? Cult not indicated 05/21/23 05/21/23 Range/Units 15:53 15:56 WBC (4.5-11.0) X10^3/uL RBC (4.5-5.9) X10^6/uL Hgb (13.5-17.5) g/dL Hct (41-53) % MCV (80-100) fL MCH (26-34) PG MCHC (30-36) % RDW (11.6-14.8) % Plt Count (150-400) X10^3/uL Neut % (Auto) (50-75) % Lymph % (Auto) (25-40) % [place] % (Auto) (3-14) % Eos % (Auto) (2-4) % Baso % (Auto) (0-2) % Neut # (Auto) (0306-7862) /uL Lymph # (Auto) (6206-4243) /uL [place] # (Auto) (0-900) /uL Eos # (Auto) (0-450) /uL Baso # (Auto) (0-100) /uL PT (10.1-12.7) SECONDS INR (0.9-1.3) APTT (26-36) SECONDS Sodium 135 L (137-145) mmol/L Potassium 4.2 (3.4-5.1) mmol/L Chloride 104 (98-107) mmol/L Carbon Dioxide 24 (22-32) mmol/L BUN 22 H (9-20) mg/dL Creatinine 1.14 (0.66-1.25) mg/dL Estimated GFR > 60 (>60) mL/min BUN/Creatinine Ratio 19.3 (6-22) Glucose 110 (80-110) mg/dL Calcium 8.2 L (8.4-10.2) mg/dL Magnesium 2.1 (1.6-2.3) mg/dL Total Bilirubin 1.6 H (0.2-1.3) mg/dL AST 26 (17-59) IU/L ALT 28 (<50) IU/L Alkaline Phosphatase 101 (38-126) U/L Total Creatine Kinase 67 (55-170) U/L Troponin I < 0.012 (0.01-0.034) ng/mL NT-Pro-B Natriuret Pep 1960 H (<450) pg/mL Total Protein 7.0 (6.3-8.2) g/dL Albumin 3.8 (3.5-5.0) g/dL Globulin 3.2 (1.7-4.1) g/dL Albumin/Globulin Ratio 1.2 (1.0-2.8) Lipase 348 H (23-300) U/L Urine Color Urine Appearance Urine pH (4.5-8.0) Ur Specific [place] (1.000-1.035) Urine Protein (Negative) Urine Glucose (UA) (Negative) g/dL Urine Ketones (NEGATIVE) Urine Occult Blood (Negative) Urine Nitrate (Negative) Urine Bilirubin (NEGATIVE) Urine Urobilinogen (0.2) E.U./dL Ur Leukocyte Esterase (NEGATIVE) Urine RBC (0-5/HPF) Urine WBC (0-5/HPF) Ur Squamous Epith Cells (0-5/HPF) Urine Bacteria (None) Ur Culture Indicated? Urine Dip Bedside Urine Glucose Negative Bedside Urine Bilirubin - Negative Bedside Urine Ketone - Negative Urine Specific [place] 1.015 Bedside Urine Occult Blood - Negative Bedside Urine pH 6.0 Bedside Urine Protein - Negative Bedside Urine Urobilinogen - Negative Bedside Urine Nitrite - Negative Bedside Urine Leukocytes +/- 15 Esterase ECG Data Attestation: I personally reviewed and interpreted this ECG as follows: Prior ECG tracings: available for review Interpretation: Heart rate 77 atrial fibrillation no other ectopy or ST changes noted. Mank: AFib rate of 77 QRS 86 QTC 414. Patient has prior EKG from 04/15/2023 which shows atrial fibrillation with a rate of 70. No acute ST changes appreciated from prior EKG to today. Discharge Plan Departure Patient Disposition: Home Clinical Impression: Episodic lightheadedness, Aortic heart murmur Activity Restrictions/Additional Instructions: *You have been diagnosed with [intermittent lightheadedness, aortic murmur (known diagnoses)] *What to do: *Please continue to take your regular medications as directed. [ ] New medication prescriptions sent to your pharmacy: [ ] [ ] New medication written as a paper prescription [X ] No new medications given *Please follow up with your primary care provider in 2-3 days, call for an appointment. Let them know you were seen in the Emergency Department and that we ask that you be seen in follow up. We will electronically transmit a record of today's note if your PCP is in our system. You were seen today for problems with intermittent dizziness worse with standing and sudden body movements, this seems like it is your chronic problem that you have been dealing with for some time now but it has been more problematic for you in the past week, I do think that it may be related to your heart and the valves in your heart as we already discussed, it looks like you have not had an echocardiogram since 2020, I would strongly recommend you talk to your primary care provider and/or executive producer promos Dr. Grant about getting another 1 done and follow up closely with Cardiology. It is quite possible that your symptoms are due to your aortic valve or the valves and your heart not working as well as they should. Your labs today looked good, they were at your baseline your chest x-ray also looked okay today as well as your EKG. Please continue all of your red her regular home medications, I have not prescribed any new medications for you today. You have new or worsening symptoms do not hesitate to seek re-evaluation. *If you do not have a primary care provider please contact the [facility] Resource line at [phone]. They will ask some questions about your medical history and help get you set up with a doctor in the community. *Return to Emergency Department if you should have any new, worsening or fay rning symptoms, such as [fever greater than 101 F, shaking chills, worsening pain, persistent vomiting or other bothersome symptoms] Prescriptions: No Action multivitamin [Multiple Vitamins] 1 EACH tablet 1 tab PO DAILY Qty: 0 cholecalciferol (vitamin D3) [Vitamin D3] 2,000 UNIT tablet 2,000 unit PO DAILY Qty: 0 warfarin 5 mg tablet See Rx Instructions .ROUTE .COMPLEX Qty: 108 3RF Dose Instruction: Take 1/2 tablet daily except on and Mon take 1 or as directed by doctor ; Rx Instructions: Take 5mg Monday and Monday and 2.5mg all other days, or as directed. finasteride 5 mg tablet 5 mg PO Q OTHER DAY Qty: 45 3RF tamsulosin 0.4 mg capsule 0.4 mg PO BID Qty: 180 3RF Rx Instructions: 30 minutes following the same meal each day metoprolol succinate 100 mg tablet extended release 24 hr 100 mg PO DAILY Qty: 90 3RF Rx Instructions: TAKE WITH 25MG METOPROLOL SUCCINATE FOR TOTAL 125MG DOSE metoprolol succinate 25 mg tablet extended release 24 hr 25 mg PO DAILY Qty: 90 3RF Rx Instructions: TAKE WITH 100MG METOPROLOL SUCCINATE FOR TOTAL 125MG DOSE atorvastatin 10 mg tablet 10 mg PO BEDTIME melatonin 10 mg tablet 10 mg PO BEDTIME PRN Iron High Potency 27 mg tablet 27 mg PO DAILY Patient Comments: Iron High Potency 240mg (27mg iron) Ocuvite 30unit 5mg 150mg 1 cap PO DAILY Referrals: Carlos Grant MD [Physician] - (Persistent intermittent lightheadedness, recommend repeat echo) Alejandro Pinto DO [Primary Care Provider] - Stand Alone Forms: Patient Portal/API <Nahomi Chavira DO - Last Filed: 05/22/23 08:14> Cosign ED Attending Cosignature Attestation: I was immediately available in the department for consultation. Documentation has been reviewed. Case was discussed patient felt would benefit from outpatient follow up with physician for echo as has longstanding aortic stenosis and has not had echo in the last 2 years reportedly.
[2023-05-21 16:31] LABS: Bacteria Urine None Seen; RBC Urine None Seen (0-5/HPF); WBC Urine None Seen (0-5/HPF)
[2023-05-21 16:32] LABS: Culture Indicated Urine Cult Not Indicated; Squamous Epithelial Cell Urine 0-1 /HPF (0-5/HPF)
== END 2023-05-21 19:10 | disposition home or self-care (01) ==
PROVIDERS: Emergency Medicine; Emergency Provider Student in an Organized Health Care Education/Training Program; Family Provider Family Medicine; PCP Family Medicine
DX: R42 Dizziness and giddiness (principal); R01.1 Cardiac murmur, unspecified; I48.91 Unspecified atrial fibrillation
CPT/HCPCS: 36415; 71045; 80053; 81001; 81003; 82550; 83690; 83735; 83880; 84484; 85025; 85610; 85730; 93005; 99283; 99284

== ENCOUNTER → 2023-06-05 07:40 | Outpatient (CLI) | payer MEDICARE, OTHER, SELFPAY ==
[2023-03-15 10:23] VITALS: BMI 23.5
--- NOTE | 2023-06-05 07:41 | DI.ECHO.S_ITS ---
[facility]---------+ [facility] +---------+ : : [address] : [place] : : : : [id number] : : : : Phone: [phone]+ Echocardiogram Report + + :Name: DOMINIC AGUILAR Study Date: 06/05/2023 Height: 73 in : :[facility] ReadingLocation: Weight: 178 lb : : Gender: Male BSA: 2.0 m2 : :: 1940 Age: 82 yrs BP: 163/97 mmHg: :Reason For Study: Nonrheumatic Aortic Valve Stenosis : :Ordering Physician: YONIS, : :REJI Performed By: Sue Stephenson : :Referring: REJI GRANT : + + Interpretation Summary 1) Normal left ventricular thickness, size, wall motion, and systolic function (EF 65-70%). 2) Mildly enlarged right ventricular size with normal function. 3) The left atrium is severely dilated. 4) There is calcific moderate aortic stenosis (valve area 1cm2, mean gradient 14mmHg, severity ratio 0.31). 5) The ascending aorta is mildly enlarged at 4.2cm. 6) Compared to the Echo done 10/14/2020, no significant change. Procedure: A two-dimensional transthoracic echocardiogram with color flow and Doppler was performed. The study quality was technically adequate. Comparison is made with the echocardiogram of 10/14/2020. The patient was in atrial fibrillation with heart rates between 80 bpm during the exam. Left Ventricle: The left ventricle is normal in size. There is normal left ventricular wall thickness. Proximal septal thickening is noted. The ejection fraction is estimated to be 65-70%. Left ventricular systolic function appears normal without focal wall motion abnormalities. Diastolic function could not be accurately assessed due to atrial fibrillation. Right Ventricle: The right ventricle is mildly dilated. The right ventricular systolic function is normal. Atria: The left atrium is severely dilated. The right atrium is mildly dilated. There is no Doppler evidence for an interatrial shunt. Mitral Valve: The mitral valve leaflets are slightly calcified. There is mild mitral annular calcification. There is no mitral valve stenosis. There is trace mitral regurgitation. Aortic Valve: The aortic valve is heavily calcified. There is moderate aortic stenosis. The peak aortic velocity is 2.70 m/sec. The aortic valve mean gradient is 14 mmHg. There is trace aortic regurgitation. Tricuspid Valve: Tricuspid leaflets are thickened. There is no tricuspid stenosis. There is mild to moderate tricuspid regurgitation. The right ventricular systolic pressure is estimated to be at least 31 mmHg based on an estimated right atrial pressure of 3 mm Hg. Pulmonic Valve: The pulmonic valve leaflets are thin and pliable; valve motion is normal. There is no pulmonic valvular stenosis. There is trace pulmonic regurgitation. Great Vessels: The aortic root is normal size. The ascending aorta is mild- moderately enlarged. The pulmonary artery is normal size. The IVC is of normal diameter and collapses greater than 50% with a sniff. This suggests a low right atrial pressure of 3 mm Hg. Pericardium/ Pleura There is no pericardial effusion. There is no pleural effusion. MMode/2D Measurements & Calculations LVIDd: 4.0 cm LVOT diam: 2.0 cm LVIDs: 1.5 cm Ao root diam: 3.4 cm FS: 62.5 % asc Aorta Diam: 4.2 cm IVSd: 1.3 cm LVPWd: 1.0 cm LV whitaker. diameter/BSA (cm/m^2): 2.0 LV sys. diameter/BSA (cm/m^2): 0.73 LA A2 area: 33.0 cm2 RA long axis: 6.4 cm LA A4 area: 31.4 cm2 RA area: 21.1 cm2 LA length (vol): 7.0 cm RA vol: 59.3 ml LA vol: 125.8 ml RA : 29.0 ml/m2 LA vol index: 61.4 ml/m2 RVD1 (basal): 4.9 cm LVLs ap4: 5.9 cm LVLd ap2: 6.1 cm TAPSE_phl: 2.6 cm LVLs ap2: 5.6 cm Doppler Measurements & Calculations Ao V2 max: 266.0 cm/sec LVOT Max Lazaro: 86.0 cm/sec Ao V2 mean: 169.6 cm/sec LV V1 max P.0 mmHg Ao max P.3 mmHg LV V1 VTI: 17.0 cm Ao mean P.5 mmHg CIERRA(I,D): 0.93 cm2 Ao V2 VTI: 54.8 cm CIERRA(V,D): 0.97 cm2 sev ratio: 0.31 CIERRA indexed to BSA (cm^2/m^2): 0.45 TR max lazaro: 268.0 cm/sec SV(LVOT): 50.9 ml TR max P.7 mmHg Reading Physician:04:22 PM
== END ==
PROVIDERS: Family Provider Family Medicine; PCP Family Medicine; Referring Provider Internal Medicine Cardiovascular Disease; Visit Provider Internal Medicine Cardiovascular Disease
DX: I08.3 Combined rheumatic disorders of mitral, aortic and tricuspid valves (principal); I77.89 Other specified disorders of arteries and arterioles
CPT/HCPCS: 93306

== ENCOUNTER 2023-07-22 19:02 | Emergency (ER) | payer MEDICARE, OTHER, SELFPAY ==
[2023-03-15 10:23] VITALS: BMI 23.5
[2023-07-22] VITALS (7 sets, daily range): BP systolic 132–194; BP diastolic 77–90; PULSE 73–91; RESP 16–39; TEMP 36.2; O2SAT 95–97; BMI 23.7
--- NOTE | 2023-07-22 19:16 | DI.RAD.S_ITS ---
PROCEDURE: XR CHEST 1V INDICATIONS: Chest pain; lightheadedness. TECHNIQUE: One view of the chest was acquired. COMPARISON: [facility], CR, XR CHEST 1V, 06/28/2022, 20:05. [facility], CR, XR CHEST 1V, 05/21/2023, 15:39. FINDINGS: Surgical changes and devices: None. Lungs and pleura: Bilateral interstitial prominence similar to the prior study. Multiple granulomas in both lung tang are stable. Mediastinum: Mediastinal contours appear normal. Heart size is enlarged. Bones and chest wall: No suspicious bony lesions. Overlying soft tissues appear unremarkable. IMPRESSION: Stable chest x-ray. No acute abnormality. Dictated by: Jaycob Mancilla M.D. on 07/22/2023 at 19:50 Approved by: Jaycob Mancilla M.D. on 07/22/2023 at 19:52
[2023-07-22 19:49] LABS: Add Manual Diff / Slide Review NO; Basophils Absolute Auto 200 /uL (0-100); Basophils Percent Auto 2.6 % (0-2); Eosinophils Absolute Auto 200 /uL (0-450); Eosinophils Percent Auto 2.6 % (2-4); Hematocrit 41.1 % (41-53); Hemoglobin 13.9 g/dL (13.5-17.5); Lymphocytes Absolute Auto 600 /uL (1100-4500); Lymphocytes Percent Auto 9.3 % (25-40); Mean Corpuscular HGB Conc 33.8 % (30-36); Mean Corpuscular Hemoglobin 30.8 PG (26-34); Mean Corpuscular Volume 91.1 fL (80-100); Monocytes Absolute Auto 400 /uL (0-900); Monocytes Percent Auto 6.4 % (3-14); Neutrophils Absolute Auto 5400 /uL (1500-7000); Neutrophils Percent Auto 79.1 % (50-75); Platelet Count 243 X10^3/uL (150-400); Red Blood Cell Count 4.51 X10^6/uL (4.5-5.9); Red Cell Distribution Width 14.3 % (11.6-14.8); White Blood Cell Count 6.8 X10^3/uL (4.5-11.0)
[2023-07-22] MEDS: ASPIRIN 81 MG CHEW TAB 324 MG PO (19:50)
[2023-07-22 19:55] LABS: INR 2.4 (0.9-1.3); Prothrombin Time 27.5 SECONDS (10.1-12.7)
[2023-07-22 19:58] LABS: PTT Partial Thromboplastin Tim 43 SECONDS (26-36)
[2023-07-22 19:59] LABS: Alanine Aminotransferase 28 IU/L (<50); Albumin 3.8 g/dL (3.5-5.0); Albumin Globulin Ratio 1.3 (1.0-2.8); Alkaline Phosphatase 88 U/L (38-126); Aspartate Aminotransferase 28 IU/L (17-59); BUN Creatinine Ratio 18.1 (6-22); Bilirubin Total 1.5 mg/dL (0.2-1.3); Blood Urea Nitrogen 17 mg/dL (9-20); Calcium 8.2 mg/dL (8.4-10.2); Carbon Dioxide 26 mmol/L (22-32); Chloride 103 mmol/L (98-107); Creatine Kinase 75 U/L (55-170); Estimated Glomerular Filt Rate > 60 mL/min (>60); Globulin 2.9 g/dL (1.7-4.1); Glucose 117 mg/dL (80-110); HEMOLYSIS 29 (0-50); Lipase 391 U/L (23-300); Magnesium 2.1 mg/dL (1.6-2.3); Potassium 4.4 mmol/L (3.4-5.1); Sodium 134 mmol/L (137-145); Total Protein 6.7 g/dL (6.3-8.2)
--- NOTE | 2023-07-22 20:05 | ED.GENADULT ---
HPI - General Adult General Chief complaint: Dizziness Stated complaint: Lightheaded, SOB, Chest pains Time Seen by Provider: 07/22/23 20:01 Source: patient Mode of arrival: Ambulatory History of Present Illness HPI narrative: 83-year-old male who is here for evaluation of right-sided chest discomfort that occurred yesterday. Also had some pain under his right shoulder blade yesterday. He also states he is become somewhat short of breath but this has been going on for the past several weeks/months. He also states he is becoming lightheaded. This is also been going on about the amount of time that he has been short of breath. He denies any fevers or cough. No abdominal pain or nausea or vomiting. He is taking all of his medications as directed. He does have history of atrial fibrillation. Does not feel like his heart is beating fast or skipping beats currently. He is no lower extremity swelling. Related Data Home Medications Medication Instructions Recorded Confirmed multivitamin (Multiple Vitamins 1 tab PO DAILY ##0 03/06/13 05/26/23 tablet) cholecalciferol (vitamin D3) 50 2,000 unit PO DAILY #0 tabs 08/03/16 05/26/23 mcg (2,000 unit) tablet (Vitamin D3) Iron High Potency 27 mg PO DAILY 04/09/19 05/26/23 Ocuvite 30unit 5mg 150mg 1 cap PO DAILY 04/09/19 05/26/23 atorvastatin 10 mg tablet 10 mg PO BEDTIME 01/25/23 05/26/23 melatonin 10 mg tablet 10 mg PO BEDTIME PRN 01/25/23 05/26/23 Previous Rx's Medication Instructions Recorded warfarin 5 mg tablet See Rx Instructions .Route 10/27/22 .COMPLEX #108 tabs finasteride 5 mg tablet 5 mg PO Q OTHER DAY #45 tabs 12/29/22 metoprolol succinate 100 mg 100 mg PO DAILY #90 tabs 12/29/22 tablet,extended release 24 hr metoprolol succinate 25 mg 25 mg PO DAILY #90 tabs 12/29/22 tablet,extended release 24 hr tamsulosin 0.4 mg capsule 0.4 mg PO BID #180 caps 12/29/22 Allergies Allergy/AdvReac Type Severity Reaction Status Date / Time No Known Drug Allergies Allergy Verified 05/26/23 14:45 Review of Systems Constitutional Constitutional: Reports system reviewed and no additional complaints, except as documented Cardiovascular Cardiovascular: Reports system reviewed and no additional complaints, except as documented Respiratory Respiratory: Reports system reviewed and no additional complaints, except as documented Gastrointestinal Gastrointestinal: Reports system reviewed and no additional complaints, except as documented Integumentary/Breasts Skin/Breast: Reports system reviewed and no additional complaints, except as documented Neurologic Neurologic: Reports system reviewed and no additional complaints, except as documented Hematologic/Lymphatic On Anticoagulants: No Patient History Medical History Anticoagulated on warfarin Aortic stenosis, severe Atrial fibrillation with rapid ventricular response Balance problem Benign prostatic hyperplasia with urinary obstruction Blurry vision, bilateral 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) Cervical somatic dysfunction Chronic atrial fibrillation (01/02/18) Chronic bilateral low back pain without sciatica Cranial somatic dysfunction Diplopia Elevated random blood glucose level Erectile dysfunction Essential hypertension (02/16/16) Fatigue Foot stiffness History of elevated PSA Incomplete emptying of bladder (02/16/16) Insomnia Left arm weakness Pelvic somatic dysfunction Physician orders for life-sustaining treatment (POLST) form indicates patient wish for [id number] status Segmental and somatic dysfunction of lumbar region Segmental and somatic dysfunction of rib cage Segmental and somatic dysfunction of sacral region Segmental and somatic dysfunction of thoracic region Somatic dysfunction of both lower extremities Vitamin D deficiency Surgical History Hx of cholecystectomy Status post cholecystectomy Family History Mother CVA (cerebral vascular accident) Father Diabetes mellitus Brother Renal failure Social History marital status: number of children: 1 household members: none occupational status: previously employed Previous occupational history: [employer] Smoking Status: Former smoker alcohol intake: former caffeine: Yes Smoking Status: Former smoker alcohol intake frequency: 0-2 drinks per day Substance Use Type: does not use Exam Initial Vital Signs Initial Vital Signs: Vital Signs Temperature 97.1 F L 07/22/23 19:05 Pulse Rate 91 H 07/22/23 19:05 Respiratory Rate 16 07/22/23 19:05 Blood Pressure 194/90 H 07/22/23 19:05 Pulse Oximetry 97 07/22/23 19:05 Oxygen Delivery Method Room Air 07/22/23 19:05 Const General: cooperative, comfortable and No ill appearing HENMT Head: normal to inspection and normocephalic Resp Effort & Inspection: normal respiratory effort Auscultation: clear to auscultation bilaterally Cardio Rate: regular rate Rhythm: abnormal rhythm GI Inspection: normal to inspection Skin General: no rashes or lesions noted Neuro General: patient alert, patient awake, patient oriented x3 and moves all extremities Course Orders Ordered: ED Orders 07/22/23 19:16 XR chest 1V Stat 07/22/23 19:21 EKG-12 Lead Stat 07/22/23 19:37 Complete Blood Count AUTO DIFF Stat Comprehensive Metabolic Panel Stat Lipase Stat Magnesium Stat PTT Partial Thromboplastin Jerry Stat Prothrombin Time INR Stat Troponin & CK Cardiac Panel Stat Discontinued Medications Aspirin (Aspirin 81 Mg Chew Tab) 324 mg PO NOW ONE Stop: 07/22/23 19:17 Last Admin: 07/22/23 19:50 Dose: 324 mg Documented By: YURIY Vital Signs Vital signs: Vital Signs - 8 hr 07/22/23 19:57 07/22/23 19:58 07/22/23 19:58 Pulse Rate 84 88 Respiratory Rate 32 H 39 H Blood Pressure 132/78 Pulse Oximetry 97 07/22/23 20:00 07/22/23 20:00 07/22/23 20:30 Pulse Rate 82 Respiratory Rate 23 Blood Pressure 172/87 H 165/77 H Pulse Oximetry 96 07/22/23 20:30 07/22/23 21:00 07/22/23 21:00 Pulse Rate 80 79 Respiratory Rate 20 23 Blood Pressure 149/82 H Pulse Oximetry 95 95 07/22/23 21:30 07/22/23 21:30 Pulse Rate 73 Respiratory Rate 22 Blood Pressure 145/79 H Pulse Oximetry 96 Medical Decision Making Medical Records Medical records reviewed: Yes I reviewed the patient's medical records. Lab Data Lab results reviewed: Yes I reviewed the patient's lab results. 07/22/23 19:37 07/22/23 19:37 Labs: Lab Results 07/22/23 07/22/23 07/22/23 Range/Units 19:37 19:37 19:37 WBC 6.8 (4.5-11.0) X10^3/uL RBC 4.51 (4.5-5.9) X10^6/uL Hgb 13.9 (13.5-17.5) g/dL Hct 41.1 (41-53) % MCV 91.1 (80-100) fL MCH 30.8 (26-34) PG MCHC 33.8 (30-36) % RDW 14.3 (11.6-14.8) % Plt Count 243 (150-400) X10^3/uL Neut % (Auto) 79.1 H (50-75) % Lymph % (Auto) 9.3 L (25-40) % Mayes % (Auto) 6.4 (3-14) % Eos % (Auto) 2.6 (2-4) % Baso % (Auto) 2.6 H (0-2) % Neut # (Auto) 5400 (3642-7699) /uL Lymph # (Auto) 600 L (8653-4087) /uL Mayes # (Auto) 400 (0-900) /uL Eos # (Auto) 200 (0-450) /uL Baso # (Auto) 200 H (0-100) /uL PT 27.5 H (10.1-12.7) SECONDS INR 2.4 H (0.9-1.3) APTT 43 H (26-36) SECONDS Sodium 134 L (137-145) mmol/L Potassium 4.4 (3.4-5.1) mmol/L Chloride 103 (98-107) mmol/L Carbon Dioxide 26 (22-32) mmol/L BUN 17 (9-20) mg/dL Creatinine 0.94 (0.66-1.25) mg/dL Estimated GFR > 60 (>60) mL/min BUN/Creatinine Ratio 18.1 (6-22) Glucose 117 H (80-110) mg/dL Calcium 8.2 L (8.4-10.2) mg/dL Magnesium 2.1 (1.6-2.3) mg/dL Total Bilirubin 1.5 H (0.2-1.3) mg/dL AST 28 (17-59) IU/L ALT 28 (<50) IU/L Alkaline Phosphatase 88 (38-126) U/L Total Creatine Kinase 75 (55-170) U/L Troponin I < 0.012 (0.01-0.034) ng/mL Total Protein 6.7 (6.3-8.2) g/dL Albumin 3.8 (3.5-5.0) g/dL Globulin 2.9 (1.7-4.1) g/dL Albumin/Globulin Ratio 1.3 (1.0-2.8) Lipase 391 H (23-300) U/L Urine Dip Bedside Urine Glucose Negative Bedside Urine Bilirubin - Negative Bedside Urine Ketone - Negative Urine Specific [place] 1.015 Bedside Urine Occult Blood - Negative Bedside Urine pH 6 Bedside Urine Protein - Negative Bedside Urine Urobilinogen - Negative Bedside Urine Nitrite - Negative Bedside Urine Leukocytes - Negative Esterase Point of care testing: Urine Dip Bedside Urine Glucose Negative Bedside Urine Bilirubin - Negative Bedside Urine Ketone - Negative Urine Specific [place] 1.015 Bedside Urine Occult Blood - Negative Bedside Urine pH 6 Bedside Urine Protein - Negative Bedside Urine Urobilinogen - Negative Bedside Urine Nitrite - Negative Bedside Urine Leukocytes - Negative Esterase Imaging Data Chest x-ray: Radiologist's Impression: PROCEDURE:? XR CHEST 1V ? INDICATIONS:? Chest pain; lightheadedness. ? TECHNIQUE:? One view of the chest was acquired.? ? COMPARISON:? [facility], CR, XR CHEST 1V, 06/28/2022, 20:05.? [facility], CR, XR CHEST 1V, 05/21/2023, 15:39. ? FINDINGS:? ? Surgical changes and devices:? None.? ? Lungs and pleura:? Bilateral interstitial prominence similar to the prior study.? Multiple granulomas in both lung tang are stable. ? Mediastinum:? Mediastinal contours appear normal.? Heart size is enlarged.? ? Bones and chest wall:? No suspicious bony lesions.? Overlying soft tissues appear unremarkable.? ? ? IMPRESSION:? Stable chest x-ray.? No acute abnormality. ECG Data Attestation: I personally reviewed and interpreted this ECG as follows: Interpretation: Atrial fibrillation Ventricular rate is 77 Normal axis Normal QRS Normal QTC No ST T wave changes MDM Narrative Medical decision making narrative: He is in AFib but he is rate controlled. Review of the last time he was here he was also in atrial fibrillation. His chest discomfort was right-sided. His troponins are negative. Chest x-ray shows no signs of pneumonia. His lightheadedness and shortness of breath has been going on for weeks if not longer. It was the right-sided chest discomfort that brought him into the emergency department today. This actually occurred yesterday. I went over all of the findings with the patient. We discussed the possibility of potentially having a transient tachyarrhythmia given his AFib. We also discussed other possibilities. I have low suspicion for CVA/TIA or ACS. 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 He was given strict return precautions. He expressed understanding and agreement with plan. Discharge Plan Departure Patient Disposition: Home Clinical Impression: Lightheadedness, Right-sided chest pain Instructions: DI for Dizziness-Nonvertigo Activity Restrictions/Additional Instructions: I recommend that you continue to take all of your medications as directed. Recommend that you contact your marble worker and also your primary doctor for a follow-up. Return to the emergency department for new or worsening symptoms. Prescriptions: No Action multivitamin [Multiple Vitamins] 1 EACH tablet 1 tab PO DAILY Qty: 0 cholecalciferol (vitamin D3) [Vitamin D3] 2,000 UNIT tablet 2,000 unit PO DAILY Qty: 0 warfarin 5 mg tablet See Rx Instructions .ROUTE .COMPLEX Qty: 108 3RF Dose Instruction: Take 1/2 tablet daily except on and Sat take 1 or as directed by doctor ; Rx Instructions: Take 5mg Monday and Monday and 2.5mg all other days, or as directed. finasteride 5 mg tablet 5 mg PO Q OTHER DAY Qty: 45 3RF tamsulosin 0.4 mg capsule 0.4 mg PO BID Qty: 180 3RF Rx Instructions: 30 minutes following the same meal each day metoprolol succinate 100 mg tablet extended release 24 hr 100 mg PO DAILY Qty: 90 3RF Rx Instructions: TAKE WITH 25MG METOPROLOL SUCCINATE FOR TOTAL 125MG DOSE metoprolol succinate 25 mg tablet extended release 24 hr 25 mg PO DAILY Qty: 90 3RF Rx Instructions: TAKE WITH 100MG METOPROLOL SUCCINATE FOR TOTAL 125MG DOSE atorvastatin 10 mg tablet 10 mg PO BEDTIME melatonin 10 mg tablet 10 mg PO BEDTIME PRN Iron High Potency 27 mg tablet 27 mg PO DAILY Patient Comments: Iron High Potency 240mg (27mg iron) Ocuvite 30unit 5mg 150mg 1 cap PO DAILY Referrals: Alejandro Pinto DO [Primary Care Provider] - Stand Alone Forms: Patient Portal/API
[2023-07-22 20:10] LABS: Troponin I < 0.012 ng/mL (0.01-0.034)
== END 2023-07-22 21:54 | disposition home or self-care (01) ==
PROVIDERS: Emergency Provider Emergency Medicine; Family Provider Family Medicine; PCP Family Medicine
DX: R07.9 Chest pain, unspecified (principal); R42 Dizziness and giddiness
CPT/HCPCS: 36415; 71045; 80053; 81003; 82550; 83690; 83735; 84484; 85025; 85610; 85730; 93005; 93010; 99283; 99284

== ENCOUNTER 2023-08-27 14:32 | Emergency (ER) | payer MEDICARE, OTHER, SELFPAY ==
[2023-03-15 10:23] VITALS: BMI 23.5
[2023-08-27 14:37] VITALS: BP 141/113
[2023-08-27 14:38] VITALS: PULSE 82; O2SAT 95
[2023-08-27 14:46] VITALS: BP 141/113; PULSE 79; RESP 18; TEMP 37.1; O2SAT 95; BMI 27.8
[2023-08-27 15:00] VITALS: PULSE 80; RESP 25; O2SAT 96
[2023-08-27 15:01] VITALS: BP 170/77; PULSE 87; RESP 24; O2SAT 95
[2023-08-27 15:15] VITALS: BP 150/70; PULSE 78; RESP 21; O2SAT 96
--- NOTE | 2023-08-27 15:27 | ED_ITS ---
HPI - Dizziness <Rakesh Hill PA-C - Last Filed: 08/27/23 15:34> General Chief Complaint: Dizziness Stated Complaint: Light headed. Left arm tingling. Chills,NO Fever. Time Seen by Provider: 08/27/23 14:36 Source: patient Mode of arrival: Ambulatory History of Present Illness HPI Narrative: This is a 83-year-old male presents to the emergency department due to reports of an increasing unsteadiness of his gait although he says this is quite chronic for him. He states as the dizziness began in November when he had a ?mini- stroke?. Denies any significant chest pain, shortness of breath, nausea, vomiting. States that he has chronic numbness and tingling in his lower extremities as well as distal left hand tripping going on for at least 10 months. He denies any significant new complaints but was concerned as he reports that his gait has been slightly more unsteady for the last month. Denies any dizziness, nausea, vomiting, slurred speech, new weakness, or any other concerning signs or symptoms. Related Data Home Medications Medication Instructions Recorded Confirmed multivitamin (Multiple Vitamins 1 tab PO DAILY ##0 03/06/13 08/03/23 tablet) cholecalciferol (vitamin D3) 50 2,000 unit PO DAILY #0 tabs 08/03/16 08/03/23 mcg (2,000 unit) tablet (Vitamin D3) Iron High Potency 27 mg PO DAILY 04/09/19 08/03/23 Ocuvite 30unit 5mg 150mg 1 cap PO DAILY 04/09/19 08/03/23 atorvastatin 10 mg tablet 10 mg PO BEDTIME 01/25/23 08/03/23 melatonin 10 mg tablet 10 mg PO BEDTIME PRN 01/25/23 08/03/23 Previous Rx's Medication Instructions Recorded warfarin 5 mg tablet See Rx Instructions .Route 10/27/22 .COMPLEX #108 tabs finasteride 5 mg tablet 5 mg PO Q OTHER DAY #45 tabs 12/29/22 metoprolol succinate 100 mg 100 mg PO DAILY #90 tabs 12/29/22 tablet,extended release 24 hr metoprolol succinate 25 mg 25 mg PO DAILY #90 tabs 12/29/22 tablet,extended release 24 hr tamsulosin 0.4 mg capsule 0.4 mg PO BID #180 caps 12/29/22 Allergies Allergy/AdvReac Type Severity Reaction Status Date / Time No Known Drug Allergies Allergy Verified 08/03/23 14:38 Review of Systems <Rakesh Hill PA-C - Last Filed: 08/27/23 15:34> Review of Systems Narrative: GENERAL: Reports gait unsteadiness, Denies chills, fatigue, malaise, fever, sweats. HEENT: Denies sinus pain, ear pain, sore throat, difficulty swallowing, dizziness. RESPIRATORY: Denies dyspnea, cough, wheezing, hemoptysis, sputum. CARDIOVASCULAR: Denies chest pain, palpitations, orthopnea, edema, GASTROINTESTINAL: Denies nausea, vomiting, abdominal pain, diarrhea, constipation, melena. : Denies dysuria, frequency, incontinence, hematuria, urinary retention. MUSCULOSKELETAL: denies weakness, joint pain, or bony pain SKIN: Denies rash, skin lesions, or other NEUROLOGIC: Denies weakness, headache, numbness, change in speech, confusion, seizures, incoordination. PSYCHIATRIC: No concerning psychosocial issues. 12 point review of systems is negative except for those stated above Patient History <Rakesh Hill PA-C - Last Filed: 08/27/23 15:34> Medical History (Updated 08/27/23 @ 15:34 by Rakesh Hill PA-C) Blurry vision, bilateral Insomnia COVID-19 virus infection Elevated random blood glucose level Aortic stenosis, severe Anticoagulated on warfarin Physician orders for life-sustaining treatment (POLST) form indicates patient wish for [id number] status Benign prostatic hyperplasia with urinary obstruction Fatigue Erectile dysfunction History of elevated PSA Balance problem Left arm weakness Vitamin D deficiency Pelvic somatic dysfunction Segmental and somatic dysfunction of sacral region Segmental and somatic dysfunction of lumbar region Chronic bilateral low back pain without sciatica Somatic dysfunction of both lower extremities Foot stiffness Segmental and somatic dysfunction of thoracic region Segmental and somatic dysfunction of rib cage Cervical somatic dysfunction Cranial somatic dysfunction Diplopia Chronic atrial fibrillation (01/02/18) Essential hypertension (02/16/16) 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) Incomplete emptying of bladder (02/16/16) Atrial fibrillation with rapid ventricular response Surgical History Hx of cholecystectomy Status post cholecystectomy Family History Mother CVA (cerebral vascular accident) Father Diabetes mellitus Brother Renal failure Social History marital status: number of children: 1 household members: none occupational status: previously employed Previous occupational history: [employer] Smoking Status: Former smoker alcohol intake: former caffeine: Yes Smoking Status: Former smoker alcohol intake frequency: 0-2 drinks per day Substance Use Type: does not use Exam <Rakesh Hill PA-C - Last Filed: 08/27/23 15:34> Narrative Exam Narrative: GENERAL: Well-developed patient, in mild distress. HEAD: Atraumatic. Normocephalic. EYES: Pupils equal round and reactive. Extraocular motions intact. No scleral icterus. No injection or drainage. ENT: Nose without bleeding, purulent drainage. Throat without erythema, tonsillar hypertrophy or exudate. Airway patent. NECK: Trachea midline. Non tender CARDIOVASCULAR: Rate controlled AFib RESPIRATORY: Clear to auscultation. Breath sounds equal bilaterally. No wheezes, rales, or rhonchi. GASTROINTESTINAL: Abdomen soft, non-tender, nondistended. EXTREMITIES: No edema or joint tenderness. BACK: Nontender without deformity or crepitance. No flank tenderness. NEURO: AOx3. SKIN: No rash or erythema of visible areas Initial Vital Signs Initial Vital Signs: Vital Signs Blood Pressure 141/113 H 08/27/23 14:37 <Nahomi Chavira DO - Last Filed: 08/28/23 07:06> Initial Vital Signs Initial Vital Signs: Vital Signs Blood Pressure 141/113 H 08/27/23 14:37 Course <Rakesh Hill PA-C - Last Filed: 08/27/23 15:34> Vital Signs Vital signs: Vital Signs - 8 hr 08/27/23 14:37 08/27/23 14:38 08/27/23 14:46 Temperature 98.7 F Pulse Rate 82 79 Respiratory Rate 18 Blood Pressure 141/113 H 141/113 H Pulse Oximetry 95 95 Oxygen Delivery Method Room Air 08/27/23 15:00 08/27/23 15:01 08/27/23 15:01 Temperature Pulse Rate 80 87 Respiratory Rate 25 H 24 Blood Pressure 170/77 H Pulse Oximetry 96 95 Oxygen Delivery Method 08/27/23 15:15 08/27/23 15:15 Temperature Pulse Rate 78 Respiratory Rate 21 Blood Pressure 150/70 H Pulse Oximetry 96 Oxygen Delivery Method <Nahomi Chavira DO - Last Filed: 08/28/23 07:06> Vital Signs Vital signs: Vital Signs - 8 hr 08/27/23 14:37 08/27/23 14:38 08/27/23 14:46 Temperature 98.7 F Pulse Rate 82 79 Respiratory Rate 18 Blood Pressure 141/113 H 141/113 H Pulse Oximetry 95 95 Oxygen Delivery Method Room Air 08/27/23 15:00 08/27/23 15:01 08/27/23 15:01 Temperature Pulse Rate 80 87 Respiratory Rate 25 H 24 Blood Pressure 170/77 H Pulse Oximetry 96 95 Oxygen Delivery Method 08/27/23 15:15 08/27/23 15:15 Temperature Pulse Rate 78 Respiratory Rate 21 Blood Pressure 150/70 H Pulse Oximetry 96 Oxygen Delivery Method MDM - Dizziness <Rakesh Hill PA-C - Last Filed: 08/27/23 15:34> MDM Narrative Medical decision making narrative: MDM * differential diagnosis includes but not limited to acute CVA, TIA, chronic instability, NSTEMI, STEMI * Prior records reviewed: Patient was last seen here a month ago due to lightheadedness. Extensive medical history, anticoagulated on warfarin, aortic stenosis, AFib with RVR, blurry vision, chronic AFib, cranial somatic dysfunction. Chest x-ray EKG and blood work were unremarkable. Patient was also here 2 months ago for similar symptoms. History of ataxia. Seen here for concerns of dizziness which is felt similar episodes in the past. Had an echo in 2020 notable for EF 55-60%. Unremarkable workup. Patient was discharged with advice to follow up with primary care provider and his mechanical cad designer. Patient was seen here 5 months ago due to being an unable to walk straight as well as lightheadedness. Patient was admitted June of 2022 diagnosed with gait instability with vertigo and history of TIA which included a head and neck CTA and brain MRI which were unremarkable. Has been referred to Neurology in the past. CT and CTA were unremarkable * My lab interpretation: None obtained * My imgaing interpretation: None obtained * Clinical Decision Rules/Scores evaluated: None * Independent discussions with: None ED Course: This is an 83-year-old male presents emergency department due to reports of increased unsteadiness although unclear if there has been a true decline in this steadiness of his gait. Patient is somewhat poor historian. Patient has had extensive workups in the past which have all been reassuring. He has an established neurologist, mechanical cad designer, and primary care provider which she plans on seeing. There were no new acute changes that have not been present for the last 10 months. Shared decision-making utilized and no further workup will be done today but recommend he follow up with this is very established primary care provider and neurologist for further management. Patient was in rate controlled atrial fibrillation. No new symptoms for workup. Shared Decision Making: Discussed plan with patient who is comfortable with the plan. Social Considerations: None Disposition: Discharged to home Discharge Plan Departure Patient Disposition: Home Clinical Impression: Balance problem Activity Restrictions/Additional Instructions: Thank you for coming to the [facility] Emergency Department today. As we discussed there is no appear to be any new symptoms that would need any further workup today in the emergency department. Strongly recommend you follow up with your primary care provider and neurologist as they will be the best people to workup your chronic issues. I hope you feel better soon. Please follow up with your primary care provider within a week if your symptoms continue. If you do not have a primary care provider please contact the [facility] Resource line at [phone]. They will ask some questions about your medical history and help you get set up with a provider in the community. Prescriptions: No Action multivitamin [Multiple Vitamins] 1 EACH tablet 1 tab PO DAILY Qty: 0 cholecalciferol (vitamin D3) [Vitamin D3] 2,000 UNIT tablet 2,000 unit PO DAILY Qty: 0 warfarin 5 mg tablet See Rx Instructions .ROUTE .COMPLEX Qty: 108 3RF Dose Instruction: Take 1/2 tablet daily except on and Mon take 1 or as directed by doctor ; Rx Instructions: Take 5mg Monday and Monday and 2.5mg all other days, or as directed. finasteride 5 mg tablet 5 mg PO Q OTHER DAY Qty: 45 3RF tamsulosin 0.4 mg capsule 0.4 mg PO BID Qty: 180 3RF Rx Instructions: 30 minutes following the same meal each day metoprolol succinate 100 mg tablet extended release 24 hr 100 mg PO DAILY Qty: 90 3RF Rx Instructions: TAKE WITH 25MG METOPROLOL SUCCINATE FOR TOTAL 125MG DOSE metoprolol succinate 25 mg tablet extended release 24 hr 25 mg PO DAILY Qty: 90 3RF Rx Instructions: TAKE WITH 100MG METOPROLOL SUCCINATE FOR TOTAL 125MG DOSE atorvastatin 10 mg tablet 10 mg PO BEDTIME melatonin 10 mg tablet 10 mg PO BEDTIME PRN Iron High Potency 27 mg tablet 27 mg PO DAILY Patient Comments: Iron High Potency 240mg (27mg iron) Ocuvite 30unit 5mg 150mg 1 cap PO DAILY Referrals: Alejandro Pinto DO [Primary Care Provider] - Stand Alone Forms: Patient Portal/API ED Sign-out <Nahomi Chavira DO - Last Filed: 08/28/23 07:06> Cosign ED Attending Yvrose Attestation: I was immediately available in the department for consultation. Documentation has been reviewed.
== END 2023-08-27 15:40 | disposition home or self-care (01) ==
PROVIDERS: Emergency Provider Physician Assistant Medical; Family Provider Family Medicine; PCP Family Medicine
DX: R26.89 Other abnormalities of gait and mobility (principal)
CPT/HCPCS: 99281

== ENCOUNTER 2023-10-08 22:03 | Emergency (ER) | payer MEDICARE, OTHER, SELFPAY ==
[2023-03-15 10:23] VITALS: BMI 23.5
[2023-10-08 22:14] VITALS: BP 186/84; PULSE 92; RESP 18; TEMP 36.1; O2SAT 97; BMI 23.6
--- NOTE | 2023-10-08 23:07 | ED_ITS ---
HPI - General Adult General Chief complaint: Dizziness Stated complaint: Balance issue, light headed Time Seen by Provider: 10/08/23 22:21 Source: patient Mode of arrival: Ambulatory History of Present Illness HPI narrative: Patient is an 83-year-old male. He is in persistent AFib. He has been having balance issues for many weeks now. He has been seen multiple times here in the ER for this. He is also had a stress test, echocardiogram. He is also worn a ZIO patch. He is a follow-up with his primary doctor on Monday. There was a referral for him to see ENT. He states that he gets lightheaded when he stands up. It does seem to fatigue after he has been standing for short period of time but then he was able to get up and walk around. He is not having any chest pain or shortness of breath. No headache. He states that he felt like his symptoms were just somewhat worse today than what they have been and he did not know if he should wait until Monday to see his primary doctor or be evaluated. Related Data Home Medications Medication Instructions Recorded Confirmed multivitamin (Multiple Vitamins 1 tab PO DAILY ##0 03/06/13 09/27/23 tablet) cholecalciferol (vitamin D3) 50 2,000 unit PO DAILY #0 tabs 08/03/16 09/27/23 mcg (2,000 unit) tablet (Vitamin D3) Iron High Potency 27 mg PO DAILY 04/09/19 09/27/23 Ocuvite 30unit 5mg 150mg 1 cap PO DAILY 04/09/19 09/27/23 atorvastatin 10 mg tablet 10 mg PO BEDTIME 01/25/23 09/27/23 melatonin 10 mg tablet 10 mg PO BEDTIME PRN 01/25/23 09/27/23 Previous Rx's Medication Instructions Recorded warfarin 5 mg tablet See Rx Instructions .Route 10/27/22 .COMPLEX #108 tabs finasteride 5 mg tablet 5 mg PO Q OTHER DAY #45 tabs 12/29/22 tamsulosin 0.4 mg capsule 0.4 mg PO BID #180 caps 12/29/22 metoprolol succinate 50 mg 50 mg PO BID #180 tabs 09/13/23 tablet,extended release 24 hr Allergies Allergy/AdvReac Type Severity Reaction Status Date / Time No Known Drug Allergies Allergy Verified 09/27/23 15:24 Review of Systems Constitutional Constitutional: Reports system reviewed and no additional complaints, except as documented ENT Ears, Nose, Mouth, and Throat: Reports system reviewed and no additional complaints, except as documented Cardiovascular Cardiovascular: Reports system reviewed and no additional complaints, except as documented Respiratory Respiratory: Reports system reviewed and no additional complaints, except as documented Neurologic Neurologic: Reports system reviewed and no additional complaints, except as documented Hematologic/Lymphatic On Anticoagulants: No Patient History Medical History Blurry vision, bilateral Insomnia COVID-19 virus infection Elevated random blood glucose level Aortic stenosis, severe Anticoagulated on warfarin Physician orders for life-sustaining treatment (POLST) form indicates patient w carlton for [id number] status Benign prostatic hyperplasia with urinary obstruction Fatigue Erectile dysfunction History of elevated PSA Balance problem Left arm weakness Vitamin D deficiency Pelvic somatic dysfunction Segmental and somatic dysfunction of sacral region Segmental and somatic dysfunction of lumbar region Chronic bilateral low back pain without sciatica Somatic dysfunction of both lower extremities Foot stiffness Segmental and somatic dysfunction of thoracic region Segmental and somatic dysfunction of rib cage Cervical somatic dysfunction Cranial somatic dysfunction Diplopia Chronic atrial fibrillation (01/02/18) Essential hypertension (02/16/16) 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) Incomplete emptying of bladder (02/16/16) Atrial fibrillation with rapid ventricular response Surgical History Hx of cholecystectomy Status post cholecystectomy Family History Mother CVA (cerebral vascular accident) Father Diabetes mellitus Brother Renal failure Social History marital status: number of children: 1 household members: none occupational status: previously employed Previous occupational history: [employer] Smoking Status: Former smoker alcohol intake: former caffeine: Yes Smoking Status: Former smoker alcohol intake frequency: 0-2 drinks per day Substance Use Type: does not use Exam Initial Vital Signs Initial Vital Signs: Vital Signs Temperature 96.9 F L 10/08/23 22:14 Pulse Rate 92 H 10/08/23 22:14 Respiratory Rate 18 10/08/23 22:14 Blood Pressure 186/84 H 10/08/23 22:14 Pulse Oximetry 97 10/08/23 22:14 Oxygen Delivery Method Room Air 10/08/23 22:14 HENMT Head: normal to inspection and normocephalic Resp Effort & Inspection: normal respiratory effort Cardio Rate: regular rate Rhythm: abnormal rhythm Skin General: no rashes or lesions noted Neuro General: patient awake and moves all extremities Speech: speech normal Gait: normal gait Extrem General: normal to inspection Course Orders Ordered: ED Orders 10/08/23 23:07 EKG-12 Lead Stat Vital Signs Vital signs: Vital Signs - 8 hr 10/08/23 22:14 10/08/23 23:15 Temperature 96.9 F L Pulse Rate 92 H Pulse Rate [Orthostatic Lying] 86 Pulse Rate [Orthostatic Sitting] 88 Pulse Rate [Orthostatic Standing] 92 H Respiratory Rate 18 Blood Pressure 186/84 H Blood Pressure [Orthostatic Lying] 184/89 H Blood Pressure [Orthostatic Sitting] 193/89 H Blood Pressure [Orthostatic Standing] 170/81 H Pulse Oximetry 97 Oxygen Delivery Method Room Air Medical Decision Making ECG Data Attestation: I personally reviewed and interpreted this ECG as follows: Interpretation: Atrial fibrillation Ventricular rate is [address] T wave changes MDM Narrative Medical decision making narrative: He is in AFib. He is in persistent AFib. His ZIO patch show AFib. Had a fairly unremarkable stress echo recently. He is referral to see ENT. He is had a fairly extensive workup of his presenting symptoms today and is still undergoing workup. Received his letter today in order to schedule his appointment with the ENT and he has a follow-up with his primary doctor on Monday. I have low suspicion that there is a new acute process going on today. He is not orthostatic. He ambulated around the emergency department. No further workup required in the ER. Will have him keep his appointment with his primary doctor. He expressed understanding and agreement with the plan. Discharge Plan Departure Patient Disposition: Home Clinical Impression: Lightheadedness Activity Restrictions/Additional Instructions: I do recommend that you continue to take all your medications as directed. Also keep your scheduled appointment that you have with your primary doctor on Monday. I do think that a follow-up with ENT is appropriate as well. You can talk with your doctor to see the indications of a referral to see Neurology. Return to the emergency department for new symptoms. Prescriptions: No Action multivitamin [Multiple Vitamins] 1 EACH tablet 1 tab PO DAILY Qty: 0 cholecalciferol (vitamin D3) [Vitamin D3] 2,000 UNIT tablet 2,000 unit PO DAILY Qty: 0 warfarin 5 mg tablet See Rx Instructions .ROUTE .COMPLEX Qty: 108 3RF Dose Instruction: Take 1/2 tablet daily except on and Mon take 1 or as directed by doctor ; Rx Instructions: Take 5mg Monday and Monday and 2.5mg all other days, or as directed. finasteride 5 mg tablet 5 mg PO Q OTHER DAY Qty: 45 3RF tamsulosin 0.4 mg capsule 0.4 mg PO BID Qty: 180 3RF Rx Instructions: 30 minutes following the same meal each day metoprolol succinate 50 mg tablet extended release 24 hr 50 mg PO BID Qty: 180 0RF Rx Instructions: this is the most updated dosing, please disregard the previous doses atorvastatin 10 mg tablet 10 mg PO BEDTIME melatonin 10 mg tablet 10 mg PO BEDTIME PRN Iron High Potency 27 mg tablet 27 mg PO DAILY Patient Comments: Iron High Potency 240mg (27mg iron) Ocuvite 30unit 5mg 150mg 1 cap PO DAILY Referrals: Alejandro Pinto DO [Primary Care Provider] - Stand Alone Forms: Patient Portal/API
[2023-10-08 23:15] VITALS: BP 170/81; BP 184/89; BP 193/89; PULSE 86; PULSE 88; PULSE 92
--- NOTE | 2023-10-08 23:26 | PC.NURSE ---
hx of same when he stands he has a moment of dizzines which resolves quickly, pt has been worked up for the same and has a dr apt on
== END 2023-10-08 23:42 | disposition home or self-care (01) ==
PROVIDERS: Emergency Provider Emergency Medicine; Family Provider Family Medicine; PCP Family Medicine
DX: R42 Dizziness and giddiness (principal); I10 Essential (primary) hypertension; Z87.891 Personal history of nicotine dependence
CPT/HCPCS: 93005; 99281; 99282

== ENCOUNTER → 2023-10-11 13:23 | Outpatient (CLI) | payer MEDICARE, OTHER, SELFPAY ==
[2023-03-15 10:23] VITALS: BMI 23.5
--- NOTE | 2023-10-11 13:25 | DI.ECHO.S_ITS ---
[facility]---------+ [facility] +---------+ : : [address] : : : : [id number] : : : : Phone: [phone] Echocardiogram Report + + :Name: DOMINIC AGUILAR Study Date: 10/11/2023 Height: 73 in : :[facility] ReadingLocation: Weight: 179 lb : : Gender: Male BSA: 2.1 m2 : :: 1940 Age: 83 yrs BP: 143/92 mmHg: :Reason For Study: AORTIC STENOSIS : :Ordering Physician: CHAVA MARREROPerformed By: Adelina Guajardo : :Referring: CHAVA MARRERO : + + Interpretation Summary 1) Normal left ventricular thickness, size, wall motion, and systolic function (EF 60-65%). 2) Mildly enlarged right ventricular size with normal function. 3) The left atrium is severely dilated. 4) There is calcific moderate aortic stenosis (valve area 1cm2, mean gradient 24mmHg, severity ratio 0.28). 5) The ascending aorta is mildly enlarged at 4.2cm. 6) Compared to the Echo done 06/05/2023, no significant change. Procedure: A two-dimensional transthoracic echocardiogram with color flow and Doppler was performed. The study quality was technically adequate. Comparison is made with the echocardiogram of 06/05/2023. The patient was in atrial fibrillation with heart rates between 68-90 bpm during the exam. Left Ventricle: The left ventricle is normal in size and wall thickness. The ejection fraction is estimated to be 60-65%. Left ventricular systolic function appears normal without focal wall motion abnormalities. Diastolic parameters suggest a relaxation abnormality of the left ventricle, consistent with probable normal filling pressures. Right Ventricle: The right ventricle is mildly dilated. The right ventricular systolic function is normal. Atria: The left atrium is severely dilated. The right atrium is moderate to severely dilated. There is no Doppler evidence for an interatrial shunt. Mitral Valve: The mitral valve is normal in structure and function. There is mild mitral annular calcification. There is mild mitral regurgitation. Aortic Valve: The aortic valve is heavily calcified. The aortic valve is trileaflet. The peak aortic velocity is 3.2 m/sec. The aortic valve mean gradient is 24 mmHg. There is trace aortic regurgitation. Tricuspid Valve: The tricuspid valve is normal in structure and function. There is mild to moderate tricuspid regurgitation. The right ventricular systolic pressure is estimated to be at least 32 mmHg based on an estimated right atrial pressure of 3 mm Hg. Pulmonic Valve: The pulmonic valve leaflets are thin and pliable; valve motion is normal. There is trace pulmonic regurgitation. Great Vessels: The aortic root is normal size. The ascending aorta is mildly enlarged. The IVC is of normal diameter and collapses greater than 50% with a sniff. This suggests a low right atrial pressure of 3 mm Hg. Pericardium/ Pleura There is no pericardial effusion. There is no pleural effusion. MMode/2D Measurements & Calculations LVIDd: 4.4 cm LVOT diam: 2.3 cm LVIDs: 3.0 cm Ao root diam: 3.7 cm FS: 30.9 % asc Aorta Diam: 4.2 cm EPSS: 0.81 cm Ao Arch Diam (Prox Trans): 3.7 cm IVSd: 0.76 cm LVPWd: 0.91 cm LV whitaker. diameter/BSA (cm/m^2): 2.1 LV sys. diameter/BSA (cm/m^2): 1.5 LA A2 area: 32.1 cm2 RA long axis: 6.5 cm LA A4 area: 30.2 cm2 RA area: 27.8 cm2 LA length (vol): 6.9 cm RA vol: 101.0 ml LA vol: 119.5 ml RA : 49.2 ml/m2 LA vol index: 58.2 ml/m2 IVC diam: 1.6 cm RVD1 (basal): 4.5 cm TAPSE: 1.7 cm Doppler Measurements & Calculations Ao V2 max: 316.3 cm/sec LVOT Max Lazaro: 80.0 cm/sec Ao V2 mean: 216.7 cm/sec LV V1 max P.6 mmHg Ao max P.4 mmHg LV V1 VTI: 16.4 cm Ao mean P.2 mmHg CIERRA(I,D): 1.2 cm2 Ao V2 VTI: 58.1 cm CIERRA(V,D): 1.0 cm2 sev ratio: 0.28 CIERRA indexed to BSA (cm^2/m^2): 0.56 MV E max lazaro: 100.8 cm/sec TR max lazaro: 271.1 cm/sec MV A max lazaro: 0.64 cm/sec TR max P.4 mmHg MV E/A: 158.0 PA V2 max: 88.8 cm/sec Med Peak E' Lazaro: 10.6 cm/sec PA V2 mean: 55.1 cm/sec E/E' med: 9.5 PA mean P.4 mmHg Lat Peak E' Lazaro: 10.0 cm/sec PA pr(Accel): 44.7 mmHg E/E' lat: 10.1 E/e' average: 9.8 MV dec time: 0.16 sec SV(LVOT): 67.1 ml Reading Physician:04:09 PM
== END ==
PROVIDERS: Family Provider Family Medicine; PCP Family Medicine; Referring Provider Family Medicine; Visit Provider Family Medicine
DX: R42 Dizziness and giddiness (principal); I35.0 Nonrheumatic aortic (valve) stenosis; I51.7 Cardiomegaly
CPT/HCPCS: 93306

== ENCOUNTER → 2023-10-27 08:51 | Outpatient (CLI) | payer MEDICARE, OTHER, SELFPAY ==
[2023-03-15 10:23] VITALS: BMI 23.5
[2023-10-27 09:53] LABS: Add Manual Diff / Slide Review NO; Basophils Absolute Auto 0 /uL (0-100); Basophils Percent Auto 0.6 % (0-2); Eosinophils Absolute Auto 100 /uL (0-450); Eosinophils Percent Auto 2.1 % (2-4); Hematocrit 44.8 % (41-53); Hemoglobin 14.7 g/dL (13.5-17.5); Lymphocytes Absolute Auto 1200 /uL (1100-4500); Lymphocytes Percent Auto 17.3 % (25-40); Mean Corpuscular HGB Conc 32.8 % (30-36); Mean Corpuscular Hemoglobin 30.4 PG (26-34); Mean Corpuscular Volume 92.6 fL (80-100); Monocytes Absolute Auto 700 /uL (0-900); Monocytes Percent Auto 9.8 % (3-14); Neutrophils Absolute Auto 4900 /uL (1500-7000); Neutrophils Percent Auto 70.2 % (50-75); Platelet Count 300 X10^3/uL (150-400); Red Blood Cell Count 4.84 X10^6/uL (4.5-5.9); Red Cell Distribution Width 14.2 % (11.6-14.8)
[2023-10-27 10:19] LABS: Blood Urea Nitrogen 25 mg/dL (9-20); Calcium 8.8 mg/dL (8.4-10.2); Carbon Dioxide 28 mmol/L (22-32); Chloride 104 mmol/L (98-107); Cholesterol 129 mg/dL (140-199); Estimated Glomerular Filt Rate 60 mL/min (>60); Glucose 92 mg/dL (80-110); HDL Cholesterol 45 mg/dL (40-60); HEMOLYSIS < 15 (0-50); LDL Cholesterol Calculated 65 mg/dL (<100); Potassium 4.1 mmol/L (3.4-5.1); Sodium 137 mmol/L (137-145); Triglycerides 95 mg/dL (35-150)
== END ==
PROVIDERS: Family Provider Family Medicine; PCP Family Medicine; Referring Provider Internal Medicine Cardiovascular Disease; Visit Provider Internal Medicine Cardiovascular Disease
DX: E78.5 Hyperlipidemia, unspecified (principal); I10 Essential (primary) hypertension; Z79.01 Long term (current) use of anticoagulants
CPT/HCPCS: 36415; 80048; 80061; 85025

== ENCOUNTER 2023-11-11 11:08 | Emergency (ER) | payer MEDICARE, OTHER, SELFPAY ==
[2023-03-15 10:23] VITALS: BMI 23.5
[2023-11-11] VITALS (16 sets, daily range): BP systolic 122–172; BP diastolic 70–90; PULSE 70–84; RESP 14–25; TEMP 36.8; O2SAT 95–99; BMI 23.6
--- NOTE | 2023-11-11 11:17 | DI.CT.S_ITS ---
PROCEDURE: CT HEAD/BRAIN WO CON INDICATIONS: dizzy, double vision TECHNIQUE: Noncontrast 4.5 mm thick angled axial sections acquired from the foramen magnum to the vertex, with coronal and sagittal reformats. For radiation dose reduction, the following was used: automated exposure control, adjustment of mA and/or kV according to patient size. COMPARISON: [facility], CT, CT HEAD/BRAIN WO CON, 01/17/2023, 16:04. FINDINGS: Image quality: Good CSF spaces: Basal cisterns are patent. Lateral ventricles are symmetric. Volume: Vascular calcifications. Periventricular white matter disease is commonly seen with chronic microangiopathy. Volume loss is present. These findings are moderate Brain: No intracranial hemorrhage. Duenas-white differentiation is grossly maintained. Craniofacial structures: Ethmoid air cell opacification on the left. Similar skin lesions in the posterior scalp and upper neck. IMPRESSION: No acute intracranial abnormality. Other findings as above. If there is high concern for parenchymal pathology, consider further evaluation with MRI. Dictated by: Derrell Angelo M.D. on 11/11/2023 at 12:02 Approved by: Derrell Angelo M.D. on 11/11/2023 at 12:05
--- NOTE | 2023-11-11 11:17 | DI.RAD.S_ITS ---
PROCEDURE: XR CHEST 1V INDICATIONS: Possible stroke TECHNIQUE: One view of the chest was acquired. COMPARISON: [facility], CR, XR CHEST 1V, 07/22/2023, 19:13. [facility], CR, XR CHEST 1V, 05/21/2023, 15:39. FINDINGS: Surgical changes and devices: None. Lungs and pleura: [id number] bibasilar and perihilar opacities. Possible trace effusions. Mediastinum: Borderline heart size. Tortuous aorta. Bones and chest wall: Degenerative changes. IMPRESSION: Perihilar and lower lung opacities are increased, likely atelectasis and infection/inflammation. Small pleural effusions. Consider future imaging surveillance to assess for resolution. Dictated by: Derrell Angelo M.D. on 11/11/2023 at 12:07 Approved by: Derrell Angelo M.D. on 11/11/2023 at 12:08
--- NOTE | 2023-11-11 11:51 | ED_ITS ---
HPI - Neuro Symptoms/Deficit General Chief Complaint: Neuro Symptoms/Deficit Stated Complaint: balance issues/dizzy/double vision/ T-1 Time Seen by Provider: 11/11/23 11:29 Source: patient Mode of arrival: Ambulatory History of Present Illness HPI Narrative: 83-year-old male history of TIA x2, hyperlipidemia, hypertension presented to emergency room with complaint of double vision. He 1st noticed it yesterday at around noon time. He noticed that his reading and writing have double visions, there was no headache no dizziness, no complaint of chest pain no shortness a breath. This has continued and persisted even currently in the emergency room although he describes that the symptom has improved. Last TIA was beginning of this year. He has not a smoker. No previous heart attack. On Anticoagulants: Yes (coumadin) Related Data Home Medications Medication Instructions Recorded Confirmed multivitamin (Multiple Vitamins 1 tab PO DAILY ##0 03/06/13 10/10/23 tablet) cholecalciferol (vitamin D3) 50 2,000 unit PO DAILY #0 tabs 08/03/16 10/10/23 mcg (2,000 unit) tablet (Vitamin D3) Iron High Potency 27 mg PO DAILY 04/09/19 10/10/23 Ocuvite 30unit 5mg 150mg 1 cap PO DAILY 04/09/19 10/10/23 atorvastatin 10 mg tablet 10 mg PO BEDTIME 01/25/23 10/10/23 melatonin 10 mg tablet 10 mg PO BEDTIME PRN 01/25/23 10/10/23 metoprolol succinate 50 mg 50 mg PO BID 10/10/23 10/10/23 tablet,extended release 24 hr Previous Rx's Medication Instructions Recorded warfarin 5 mg tablet See Rx Instructions .Route 10/27/22 .COMPLEX #108 tabs finasteride 5 mg tablet 5 mg PO Q OTHER DAY #45 tabs 12/29/22 tamsulosin 0.4 mg capsule 0.4 mg PO BID #180 caps 12/29/22 Allergies Allergy/AdvReac Type Severity Reaction Status Date / Time No Known Drug Allergies Allergy Verified 10/10/23 09:34 Review of Systems Review of Systems Narrative: All system reviewed, negative except what is dictated in HPI Eyes Eyes: Denies loss of vision ENT Ears, Nose, Mouth, and Throat: Denies vertigo and Denies dizziness Cardiovascular Cardiovascular: Denies syncope Neurologic Neurologic: Denies vertigo, Denies dizziness, Denies syncope, Denies loss of vision and Reports other (Double vision) Hematologic/Lymphatic On Anticoagulants: Yes (coumadin) Patient History Medical History Blurry vision, bilateral Insomnia COVID-19 virus infection Elevated random blood glucose level Aortic stenosis, severe Anticoagulated on warfarin Physician orders for life-sustaining treatment (POLST) form indicates patient wish for [id number] status Benign prostatic hyperplasia with urinary obstruction Fatigue Erectile dysfunction History of elevated PSA Balance problem Left arm weakness Vitamin D deficiency Pelvic somatic dysfunction Segmental and somatic dysfunction of sacral region Segmental and somatic dysfunction of lumbar region Chronic bilateral low back pain without sciatica Somatic dysfunction of both lower extremities Foot stiffness Segmental and somatic dysfunction of thoracic region Segmental and somatic dysfunction of rib cage Cervical somatic dysfunction Cranial somatic dysfunction Diplopia Chronic atrial fibrillation (01/02/18) Essential hypertension (02/16/16) 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) Incomplete emptying of bladder (02/16/16) Atrial fibrillation with rapid ventricular response Surgical History Hx of cholecystectomy Status post cholecystectomy Family History Mother CVA (cerebral vascular accident) Father Diabetes mellitus Brother Renal failure Social History marital status: number of children: 1 household members: none occupational status: previously employed Previous occupational history: [employer] Smoking Status: Former smoker alcohol intake: former caffeine: Yes Smoking Status: Former smoker alcohol intake frequency: 0-2 drinks per day Substance Use Type: does not use Exam Initial Vital Signs Initial Vital Signs: Vital Signs Temperature 98.2 F 11/11/23 11:10 Pulse Rate 77 11/11/23 11:10 Respiratory Rate 14 11/11/23 11:10 Blood Pressure 161/74 H 11/11/23 11:10 Pulse Oximetry 99 11/11/23 11:10 Oxygen Delivery Method Room Air 11/11/23 11:10 Const General: cooperative, healthy appearing, comfortable, well developed, well groomed, No acute distress and No in distress [facility] Head: normal to inspection, normocephalic and atraumatic Eyes General: Yes appearance normal, both eyes and all related structures Neck Neck: normal visual inspection, full ROM and no meningeal signs Chest Chest: normal inspection of the chest and normal palpation of entire chest wall Resp Effort & Inspection: normal respiratory effort and able to speak in complete sentences Cardio Palpation: normal PMI and abnormal PMI GI Inspection: normal to inspection and abdominal wall ecchymosis General: bimanual renal exam normal bilaterally and bladder normal to inspection Neuro General: patient alert, patient awake, patient oriented x3, gait normal, tone normal, moves all extremities, normal light touch, pain and propioception, no meningeal signs and no focal motor deficits Cranial Nerves: CN's II-XI intact bilaterally, sense of smell intact, PERRL, accommodation normal, EOM intact bilaterally, facial strength normal, tongue midline, gag reflex normal, hearing normal, able to rotate head bilaterally and able to elevate shoulders bilaterally Cognition: normal cognition Speech: speech normal and abnormal speech Gait: normal gait Motor: muscle tone normal throughout, strength 5/5 throughout, no pronator drift and no movement abnormalities noted Sensory Exam: no sensory deficits noted and normal double simultaneous stimulation Pupils: Normal pupillary reactivity/response: bilateral Other: still have subjective double vision Course Orders Ordered: ED Orders 11/11/23 11:17 CT head/brain wo con Stat XR chest 1V Stat EKG-12 Lead Stat 11/11/23 12:20 Urine Drug Screen, Rapid Stat 11/11/23 12:47 MR head/brain wo con Stat 11/11/23 14:07 Complete Blood Count AUTO DIFF Stat Comprehensive Metabolic Panel Stat Magnesium Stat PTT Partial Thromboplastin Jerry Stat Prothrombin Time INR Stat Troponin & CK Cardiac Panel Stat Ondansetron HCl (Ondansetron 4 Mg/2 Ml Inj) 4 mg IV NOW PRN PRN Reason: Nausea And Vomiting Ondansetron HCl (Ondansetron 4 Mg Odt) 4 mg SL NOW PRN PRN Reason: Nausea And Vomiting Vital Signs Vital signs: Vital Signs - 8 hr 11/11/23 11:10 11/11/23 11:15 11/11/23 11:16 Temperature 98.2 F Pulse Rate 77 84 Respiratory Rate 14 Blood Pressure 161/74 H 161/74 H Pulse Oximetry 99 98 Oxygen Delivery Method Room Air 11/11/23 11:16 11/11/23 11:31 11/11/23 11:33 Temperature Pulse Rate 78 81 Respiratory Rate 22 25 H Blood Pressure 144/76 H Pulse Oximetry 98 96 Oxygen Delivery Method Room Air 11/11/23 11:33 11/11/23 12:00 11/11/23 12:00 Temperature Pulse Rate 78 79 Respiratory Rate 21 19 Blood Pressure 122/70 Pulse Oximetry 98 95 Oxygen Delivery Method 11/11/23 12:18 11/11/23 12:18 11/11/23 12:30 Temperature Pulse Rate 71 Respiratory Rate Blood Pressure 164/74 H 140/70 Pulse Oximetry 96 Oxygen Delivery Method Room Air 11/11/23 12:30 11/11/23 13:00 11/11/23 13:00 Temperature Pulse Rate 70 73 Respiratory Rate 23 15 Blood Pressure 158/77 H Pulse Oximetry 96 95 Oxygen Delivery Method 11/11/23 13:15 11/11/23 13:16 11/11/23 14:12 Temperature Pulse Rate 80 Respiratory Rate 16 Blood Pressure 155/74 H 159/79 H Pulse Oximetry 97 Oxygen Delivery Method Room Air 11/11/23 14:16 11/11/23 14:30 11/11/23 14:30 Temperature Pulse Rate 78 71 Respiratory Rate 16 Blood Pressure 156/90 H Pulse Oximetry 99 97 Oxygen Delivery Method Room Air 11/11/23 15:00 11/11/23 15:00 Temperature Pulse Rate 70 Respiratory Rate 20 Blood Pressure 172/88 H Pulse Oximetry 98 Oxygen Delivery Method Room Air MDM - Neuro Symptoms/Deficit Lab Data 11/11/23 14:07 11/11/23 14:07 Labs: Lab Results 11/11/23 11/11/23 Range/Units 12:20 14:07 WBC 6.1 (4.5-11.0) X10^3/uL RBC 4.32 L (4.5-5.9) X10^6/uL Hgb 13.4 L (13.5-17.5) g/dL Hct 39.9 L (41-53) % MCV 92.5 (80-100) fL MCH 31.1 (26-34) PG MCHC 33.6 (30-36) % RDW 14.1 (11.6-14.8) % Plt Count 251 (150-400) X10^3/uL Neut % (Auto) 70.6 (50-75) % Lymph % (Auto) 17.3 L (25-40) % [place] % (Auto) 10.0 (3-14) % Eos % (Auto) 1.8 L (2-4) % Baso % (Auto) 0.3 (0-2) % Neut # (Auto) 4300 (5746-0009) /uL Lymph # (Auto) 1100 (9380-3680) /uL [place] # (Auto) 600 (0-900) /uL Eos # (Auto) 100 (0-450) /uL Baso # (Auto) 0 (0-100) /uL PT 23.9 H (9.4-12.5) SECONDS INR 2.1 H (0.9-1.3) APTT 39 H (25.1-36.5) SECONDS Sodium 134 L (137-145) mmol/L Potassium 4.4 (3.4-5.1) mmol/L Chloride 102 (98-107) mmol/L Carbon Dioxide 29 (22-32) mmol/L BUN 18 (9-20) mg/dL Creatinine 1.17 (0.66-1.25) mg/dL Estimated GFR > 60 (>60) mL/min BUN/Creatinine Ratio 15.4 (6-22) Glucose 89 (80-110) mg/dL Calcium 8.7 (8.4-10.2) mg/dL Magnesium 2.3 (1.6-2.3) mg/dL Total Bilirubin 1.5 H (0.2-1.3) mg/dL AST 32 (17-59) IU/L ALT 34 (<50) IU/L Alkaline Phosphatase 78 (38-126) U/L Total Creatine Kinase 49 L (55-170) U/L Troponin I < 0.012 (0.01-0.034) ng/mL Total Protein 6.3 (6.3-8.2) g/dL Albumin 3.5 (3.5-5.0) g/dL Globulin 2.8 (1.7-4.1) g/dL Albumin/Globulin Ratio 1.3 (1.0-2.8) U Opiates 300ng/mL cut Negative (Negative) Ur Oxycodone Screen Negative (Negative) Urine Methadone Screen Negative (Negative) Ur Barbiturates Screen Negative (Negative) U Tricyclic Antidepress Negative (Negative) Ur Phencyclidine Scrn Negative (Negative) Ur Amphetamines Screen Negative (Negative) U Methamphetamines Scrn Negative (Negative) Ur MDMA Scrn (Ecstasy) Negative (Negative) U Benzodiazepines Scrn Negative (Negative) Urine Cocaine Screen Negative (Negative) U Marijuana (THC) Screen Negative (Negative) Urine pH Normal (Normal) Urine Specific [place] Normal (Normal) Ur Creatinine Normal (Normal) Urine Dip Bedside Urine Glucose Negative Bedside Urine Bilirubin - Negative Bedside Urine Ketone - Negative Urine Specific [place] 1.010 Bedside Urine Occult Blood - Negative Bedside Urine pH 7.5 Bedside Urine Protein - Negative Bedside Urine Urobilinogen - Negative Bedside Urine Nitrite - Negative Bedside Urine Leukocytes - Negative Esterase ECG Data Interpretation: Atrial fibrillation heart rate 72, QRS 82 QT 372 QTC 407 MDM Narrative Medical decision making narrative: 83-year-old male history of TIA x2, hyperlipidemia, hypertension presented to emergency room with complaint of double vision. He 1st noticed it yesterday at around noon time. He noticed that his reading and writing have double visions, there was no headache no dizziness, no complaint of chest pain no shortness a breath. This has continued and persisted even currently in the emergency room although he describes that the symptom has improved. Last TIA was beginning of this year. He has not a smoker. No previous heart attack. Based on my H&P differential diagnosis includes TIA, CVA, nonspecific diplopia. Multiple sclerosis Patient is agreeable to have IV insertion CT scan of the brain, other studies such as EKG per stroke protocol At 3:35 a.m., patient reassessed, patient is stable, still complain of mild blurred vision diplopia. I have disclosed to heme negative CT scan of brain for stroke, MRI took a while to resolve but shows negative finding. Patient is a short, I feel the patient would benefit from an ophthalmology examination evaluation, patient is asked to follow up with his primary care doctor for this referral or if he has ophthalmology establishing go ahead and call for an appointment He understood my instructions, he is stable at time of discharge, all questions addressed, Discharge Plan Departure Patient Disposition: Home Clinical Impression: Diplopia Instructions: DI for Double Vision Activity Restrictions/Additional Instructions: Please continue monitoring your symptoms. Follow with primary care doctor in 5- 7 days for referral to Ophthalmology for thorough evaluation, if there is worsening symptom call your PCP or return to the emergency room for further evaluation. Prescriptions: No Action multivitamin [Multiple Vitamins] 1 EACH tablet 1 tab PO DAILY Qty: 0 cholecalciferol (vitamin D3) [Vitamin D3] 2,000 UNIT tablet 2,000 unit PO DAILY Qty: 0 warfarin 5 mg tablet See Rx Instructions .ROUTE .COMPLEX Qty: 108 3RF Dose Instruction: Take 1/2 tablet daily except on and Mon take 1 or as directed by doctor ; Rx Instructions: Take 5mg Monday and Monday and 2.5mg all other days, or as directed. finasteride 5 mg tablet 5 mg PO Q OTHER DAY Qty: 45 3RF tamsulosin 0.4 mg capsule 0.4 mg PO BID Qty: 180 3RF Rx Instructions: 30 minutes following the same meal each day metoprolol succinate 50 mg tablet extended release 24 hr 50 mg PO BID Rx Instructions: Take 1 tab in the am, and 1/2 tab in the pm atorvastatin 10 mg tablet 10 mg PO BEDTIME melatonin 10 mg tablet 10 mg PO BEDTIME PRN Iron High Potency 27 mg tablet 27 mg PO DAILY Patient Comments: Iron High Potency 240mg (27mg iron) Ocuvite 30unit 5mg 150mg 1 cap PO DAILY Referrals: Alejandro Pinto DO [Primary Care Provider] - Stand Alone Forms: Patient Portal/API
--- NOTE | 2023-11-11 12:27 | PC.NURSE ---
Patient stood at bedside to use the urinal. He denies pain and does not have shortness of breath while laying or standing. With ambulation such as stairs, patient states he feels short of breath usually. Pt complains of off-balance (and mentions having neuropathy in his legs) and blurred vision. He currently denies double vision.
[2023-11-11 12:43] LABS: UR Morphine/Opiate cutoff 300 Negative (Negative); Ur Creatinine Normal (Normal); Ur Specific Gravity Normal (Normal); Urine Amphetamines Negative (Negative); Urine Cocaine Negative (Negative); Urine MDMA Negative (Negative); Urine Methamphetamines Negative (Negative); Urine Phencyclidine Negative (Negative); Urine Tetrahydrocannabinol Negative (Negative); Urine pH Normal (Normal)
[2023-11-11 12:44] LABS: Urine Barbiturates Negative (Negative); Urine Benzodiazepines Negative (Negative); Urine Methadone Negative (Negative); Urine Oxycodone Negative (Negative); Urine Tricyclic Antidepressant Negative (Negative)
--- NOTE | 2023-11-11 12:47 | DI.MRI.S_ITS ---
PROCEDURE: MR HEAD/BRAIN WO CON INDICATIONS: Diplopia TECHNIQUE: Noncontrast axial T1 spin echo, axial T2 fast spin echo, sagittal and axial FLAIR, coronal T2 fast spin echo, axial gradient echo, axial diffusion and ADC through the brain. COMPARISON: [facility], CT, CT HEAD/BRAIN WO CON, 11/11/2023, 11:23. [facility], MR, MR HEAD/BRAIN WO CON, 06/29/2022, 10:28. FINDINGS: Image quality: Diagnostic CSF spaces: Basal cisterns are patent. Lateral ventricles are symmetric. Volume: Volume loss. Periventricular white matter signal abnormality most commonly seen with small vessel disease. These findings are moderate Brain: Susceptibility in the basal ganglia region, likely related to mineralization. No acute hematoma. No acute diffusion restriction. No confluent regions of edema Craniofacial structures: No displaced fracture. Sinuses are clear. Orbits are intact. IMPRESSION: No acute hematoma or infarction. Dictated by: Derrell Angelo M.D. on 11/11/2023 at 14:56 Approved by: Derrell Angelo M.D. on 11/11/2023 at 14:59
[2023-11-11 14:20] LABS: Add Manual Diff / Slide Review NO; Basophils Absolute Auto 0 /uL (0-100); Basophils Percent Auto 0.3 % (0-2); Eosinophils Absolute Auto 100 /uL (0-450); Eosinophils Percent Auto 1.8 % (2-4); Hematocrit 39.9 % (41-53); Hemoglobin 13.4 g/dL (13.5-17.5); Lymphocytes Absolute Auto 1100 /uL (1100-4500); Lymphocytes Percent Auto 17.3 % (25-40); Mean Corpuscular HGB Conc 33.6 % (30-36); Mean Corpuscular Hemoglobin 31.1 PG (26-34); Mean Corpuscular Volume 92.5 fL (80-100); Monocytes Absolute Auto 600 /uL (0-900); Neutrophils Absolute Auto 4300 /uL (1500-7000); Neutrophils Percent Auto 70.6 % (50-75); Platelet Count 251 X10^3/uL (150-400); Red Blood Cell Count 4.32 X10^6/uL (4.5-5.9); Red Cell Distribution Width 14.1 % (11.6-14.8); White Blood Cell Count 6.1 X10^3/uL (4.5-11.0)
[2023-11-11 14:27] LABS: INR 2.1 (0.9-1.3); Prothrombin Time 23.9 SECONDS (9.4-12.5)
[2023-11-11 14:30] LABS: PTT Partial Thromboplastin Tim 39 SECONDS (25.1-36.5)
[2023-11-11 14:32] LABS: Alanine Aminotransferase 34 IU/L (<50); Albumin 3.5 g/dL (3.5-5.0); Albumin Globulin Ratio 1.3 (1.0-2.8); Alkaline Phosphatase 78 U/L (38-126); Aspartate Aminotransferase 32 IU/L (17-59); BUN Creatinine Ratio 15.4 (6-22); Bilirubin Total 1.5 mg/dL (0.2-1.3); Blood Urea Nitrogen 18 mg/dL (9-20); Calcium 8.7 mg/dL (8.4-10.2); Carbon Dioxide 29 mmol/L (22-32); Chloride 102 mmol/L (98-107); Creatine Kinase 49 U/L (55-170); Estimated Glomerular Filt Rate > 60 mL/min (>60); Globulin 2.8 g/dL (1.7-4.1); Glucose 89 mg/dL (80-110); HEMOLYSIS < 15 (0-50); Magnesium 2.3 mg/dL (1.6-2.3); Potassium 4.4 mmol/L (3.4-5.1); Sodium 134 mmol/L (137-145); Total Protein 6.3 g/dL (6.3-8.2)
[2023-11-11 14:44] LABS: Troponin I < 0.012 ng/mL (0.01-0.034)
== END 2023-11-11 16:15 | disposition home or self-care (01) ==
PROVIDERS: Emergency Provider Emergency Medicine Emergency Medical Services; Family Provider Family Medicine; PCP Family Medicine
DX: H53.2 Diplopia (principal); R29.818 Other symptoms and signs involving the nervous system; R42 Dizziness and giddiness; I48.91 Unspecified atrial fibrillation; Z79.01 Long term (current) use of anticoagulants
CPT/HCPCS: 36415; 70450; 70551; 71045; 80053; 80305; 81003; 82550; 83735; 84484; 85025; 85610; 85730; 93005; 99284; 99285

== ENCOUNTER 2023-11-14 00:32 | Emergency (ER) | payer MEDICARE, OTHER, SELFPAY ==
[2023-03-15 10:23] VITALS: BMI 23.5
[2023-11-14] VITALS (7 sets, daily range): BP systolic 150–178; BP diastolic 69–94; PULSE 72–86; RESP 18–23; TEMP 36.4–36.6; O2SAT 96–98; BMI 23.7
--- NOTE | 2023-11-14 00:58 | DI.RAD.S_ITS ---
PROCEDURE: XR CHEST 1V INDICATIONS: chest pain TECHNIQUE: One view of the chest was acquired. COMPARISON: [facility], CR, XR CHEST 1V, 11/11/2023, 11:22. [facility], CR, XR CHEST 1V, 07/22/2023, 19:13. FINDINGS: Surgical changes and devices: None. Lungs and pleura: Improvement in bibasilar and perihilar opacities with small residual bibasilar opacities. Possible trace effusions. Mediastinum: Mediastinal contours appear normal. Heart size is mildly enlarged. Bones and chest wall: No suspicious bony lesions. Overlying soft tissues appear unremarkable. IMPRESSION: Improvement in pulmonary opacities. Possible trace bilateral pleural effusions. Dictated by: Andrea Louise M.D. on 11/14/2023 at 1:47 Approved by: Andrea Louise M.D. on 11/14/2023 at 1:48
[2023-11-14 01:10] LABS: Add Manual Diff / Slide Review NO; Basophils Absolute Auto 0 /uL (0-100); Basophils Percent Auto 0.5 % (0-2); Eosinophils Absolute Auto 200 /uL (0-450); Eosinophils Percent Auto 2.9 % (2-4); Hematocrit 40.9 % (41-53); Hemoglobin 13.8 g/dL (13.5-17.5); Lymphocytes Absolute Auto 1100 /uL (1100-4500); Lymphocytes Percent Auto 15.6 % (25-40); Mean Corpuscular HGB Conc 33.8 % (30-36); Mean Corpuscular Hemoglobin 31.2 PG (26-34); Mean Corpuscular Volume 92.2 fL (80-100); Monocytes Absolute Auto 800 /uL (0-900); Monocytes Percent Auto 11.9 % (3-14); Neutrophils Absolute Auto 4700 /uL (1500-7000); Neutrophils Percent Auto 69.1 % (50-75); Platelet Count 267 X10^3/uL (150-400); Red Blood Cell Count 4.43 X10^6/uL (4.5-5.9); Red Cell Distribution Width 14.4 % (11.6-14.8); White Blood Cell Count 6.7 X10^3/uL (4.5-11.0)
[2023-11-14 01:11] LABS: INR 2.2 (0.9-1.3); Prothrombin Time 25.8 SECONDS (9.4-12.5)
[2023-11-14 01:14] LABS: PTT Partial Thromboplastin Tim 40 SECONDS (25.1-36.5)
[2023-11-14] MEDS: ASPIRIN 81 MG CHEW TAB 324 MG PO (01:16)
[2023-11-14 01:45] LABS: Alanine Aminotransferase 32 IU/L (<50); Albumin 3.6 g/dL (3.5-5.0); Albumin Globulin Ratio 1.2 (1.0-2.8); Alkaline Phosphatase 93 U/L (38-126); BUN Creatinine Ratio 20.4 (6-22); Bilirubin Total 1.1 mg/dL (0.2-1.3); Blood Urea Nitrogen 22 mg/dL (9-20); Calcium 8.7 mg/dL (8.4-10.2); Carbon Dioxide 24 mmol/L (22-32); Chloride 105 mmol/L (98-107); Creatine Kinase 62 U/L (55-170); Estimated Glomerular Filt Rate > 60 mL/min (>60); Globulin 2.9 g/dL (1.7-4.1); Glucose 101 mg/dL (80-110); Lipase 340 U/L (23-300); Magnesium 2.2 mg/dL (1.6-2.3); Potassium 4.3 mmol/L (3.4-5.1); Sodium 134 mmol/L (137-145); Total Protein 6.5 g/dL (6.3-8.2)
[2023-11-14 01:56] LABS: Troponin I < 0.012 ng/mL (0.01-0.034)
--- NOTE | 2023-11-14 02:33 | ED_ITS ---
HPI - Chest Pain General Chief Complaint: Chest Pain Stated Complaint: left arm tingling, taps on heart, lightheaded Time Seen by Provider: 11/14/23 01:03 Source: patient Mode of arrival: Ambulatory Limitations: no limitations History of Present Illness HPI narrative: 83-year-old gentleman with a history of hypertension, hyperlipidemia 2 prior TIAs, BPH, chronic atrial fibrillation anticoagulated on warfarin presents complaining of an intermittent pinging sensation in his chest (approximately 4 brief episodes each lasting less than a second in a total of 3 hours) that has been present for 2 hours and started while he was watching the [employer] game(which, admittedly, was quite an exciting game). That sensation resolved but he is now complaining of dyspnea and left arm tingling. You seen in the emergency room on November 11 with complaints of double vision with brain MRI that did not suggest acute abnormalities and he was subsequently discharged home. 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 He is not noticing any lower extremity edema or dyspnea. No recent fevers, cough, chills, nausea, vomiting or diarrhea. Related Data Home Medications Medication Instructions Recorded Confirmed multivitamin (Multiple Vitamins 1 tab PO DAILY ##0 03/06/13 10/10/23 tablet) cholecalciferol (vitamin D3) 50 2,000 unit PO DAILY #0 tabs 08/03/16 10/10/23 mcg (2,000 unit) tablet (Vitamin D3) Iron High Potency 27 mg PO DAILY 04/09/19 10/10/23 Ocuvite 30unit 5mg 150mg 1 cap PO DAILY 04/09/19 10/10/23 atorvastatin 10 mg tablet 10 mg PO BEDTIME 01/25/23 10/10/23 melatonin 10 mg tablet 10 mg PO BEDTIME PRN 01/25/23 10/10/23 metoprolol succinate 50 mg 50 mg PO BID 10/10/23 10/10/23 tablet,extended release 24 hr Previous Rx's Medication Instructions Recorded warfarin 5 mg tablet See Rx Instructions .Route 10/27/22 .COMPLEX #108 tabs finasteride 5 mg tablet 5 mg PO Q OTHER DAY #45 tabs 12/29/22 tamsulosin 0.4 mg capsule 0.4 mg PO BID #180 caps 12/29/22 Allergies Allergy/AdvReac Type Severity Reaction Status Date / Time No Known Drug Allergies Allergy Verified 10/10/23 09:34 Review of Systems Review of Systems Narrative: Pertinent positive and negative findings as per HPI Patient History Medical History Blurry vision, bilateral Insomnia COVID-19 virus infection Elevated random blood glucose level Aortic stenosis, severe Anticoagulated on warfarin Physician orders for life-sustaining treatment (POLST) form indicates patient wish for [id number] status Benign prostatic hyperplasia with urinary obstruction Fatigue Erectile dysfunction History of elevated PSA Balance problem Left arm weakness Vitamin D deficiency Pelvic somatic dysfunction Segmental and somatic dysfunction of sacral region Segmental and somatic dysfunction of lumbar region Chronic bilateral low back pain without sciatica Somatic dysfunction of both lower extremities Foot stiffness Segmental and somatic dysfunction of thoracic region Segmental and somatic dysfunction of rib cage Cervical somatic dysfunction Cranial somatic dysfunction Diplopia Chronic atrial fibrillation (01/02/18) Essential hypertension (02/16/16) 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) Incomplete emptying of bladder (02/16/16) Atrial fibrillation with rapid ventricular response Surgical History Hx of cholecystectomy Status post cholecystectomy Family History Mother CVA (cerebral vascular accident) Father Diabetes mellitus Brother Renal failure Social History marital status: number of children: 1 household members: none occupational status: previously employed Previous occupational history: [employer] Smoking Status: Former smoker alcohol intake: former caffeine: Yes Smoking Status: Former smoker alcohol intake frequency: 0-2 drinks per day Substance Use Type: does not use Exam Initial Vital Signs Initial Vital Signs: Vital Signs Temperature 98 F 11/14/23 00:40 Pulse Rate 86 11/14/23 00:40 Respiratory Rate 18 11/14/23 00:40 Blood Pressure 159/82 H 11/14/23 00:40 Pulse Oximetry 98 11/14/23 00:40 Oxygen Delivery Method Room Air 11/14/23 00:40 General: Healthy appearing, in no acute distress. Able to give a complete and coherent history. Well-nourished well-developed HEENT: Moist mucous membranes, normal sclera with reactive pupils, Neck: No JVD, supple Respiratory: Lungs are clear to auscultation, no wheezing no rales no rhonchi. Full and symmetrical air movement Cardiac: Irregular rate with 3/6 systolic ejection murmur Abdomen: Soft, nontender, good bowel tones, no flank pain Skin: Warm and dry, no rashes Neurologic: Grossly neurologically intact with no obvious asymmetries or abnormalities Extremities: No trauma, well perfused Psych: Cooperative, appropriate insight and affect Course Orders Ordered: ED Orders 11/14/23 00:50 Complete Blood Count AUTO DIFF Stat Comprehensive Metabolic Panel Stat Lipase Stat Magnesium Stat PTT Partial Thromboplastin Jerry Stat Prothrombin Time INR Stat Troponin & CK Cardiac Panel Stat 11/14/23 00:58 XR chest 1V Stat EKG-12 Lead Stat Discontinued Medications Aspirin (Aspirin 81 Mg Chew Tab) 324 mg PO NOW ONE Stop: 11/14/23 00:59 Last Admin: 11/14/23 01:16 Dose: 324 mg Documented By: AM Vital Signs Vital signs: Vital Signs - 8 hr 11/14/23 00:40 Temperature 98 F Pulse Rate 86 Respiratory Rate 18 Blood Pressure 159/82 H Pulse Oximetry 98 Oxygen Delivery Method Room Air MDM - Chest Pain Lab Data 11/14/23 00:50 11/14/23 00:50 Labs: Lab Results 11/14/23 Range/Units 00:50 WBC 6.7 (4.5-11.0) X10^3/uL RBC 4.43 L (4.5-5.9) X10^6/uL Hgb 13.8 (13.5-17.5) g/dL Hct 40.9 L (41-53) % MCV 92.2 (80-100) fL MCH 31.2 (26-34) PG MCHC 33.8 (30-36) % RDW 14.4 (11.6-14.8) % Plt Count 267 (150-400) X10^3/uL Neut % (Auto) 69.1 (50-75) % Lymph % (Auto) 15.6 L (25-40) % [place] % (Auto) 11.9 (3-14) % Eos % (Auto) 2.9 (2-4) % Baso % (Auto) 0.5 (0-2) % Neut # (Auto) 4700 (7280-0460) /uL Lymph # (Auto) 1100 (8695-7622) /uL [place] # (Auto) 800 (0-900) /uL Eos # (Auto) 200 (0-450) /uL Baso # (Auto) 0 (0-100) /uL PT 25.8 H (9.4-12.5) SECONDS INR 2.2 H (0.9-1.3) APTT 40 H (25.1-36.5) SECONDS Sodium 134 L (137-145) mmol/L Potassium 4.3 (3.4-5.1) mmol/L Chloride 105 (98-107) mmol/L Carbon Dioxide 24 (22-32) mmol/L BUN 22 H (9-20) mg/dL Creatinine 1.08 (0.66-1.25) mg/dL Estimated GFR > 60 (>60) mL/min BUN/Creatinine Ratio 20.4 (6-22) Glucose 101 (80-110) mg/dL Calcium 8.7 (8.4-10.2) mg/dL Magnesium 2.2 (1.6-2.3) mg/dL Total Bilirubin 1.1 (0.2-1.3) mg/dL ALT 32 (<50) IU/L Alkaline Phosphatase 93 (38-126) U/L Total Creatine Kinase 62 (55-170) U/L Troponin I < 0.012 (0.01-0.034) ng/mL Total Protein 6.5 (6.3-8.2) g/dL Albumin 3.6 (3.5-5.0) g/dL Globulin 2.9 (1.7-4.1) g/dL Albumin/Globulin Ratio 1.2 (1.0-2.8) Lipase 340 H (23-300) U/L MDM Narrative Medical decision making narrative: CC: Fleeting episodes of chest pain Complicating co-morbidities: Atrial fibrillation, anticoagulated, hypertension, BPH Data collected from: patient Medical records reviewed: Recent cardiology records including echocardiogram as well as ER visit 48 hours ago for stroke workup with MRI of the brain all reviewed Differential considered: Acute coronary syndrome, pneumothorax, pericarditis, dissection, pneumonia, esophageal spasm Exam documented above, pertinent findings include: Exam is entirely benign aside from his chronic atrial fibrillation in murmur secondary to his aortic stenosis Lab Test results independently reviewed as above. Pertinent findings: CBC is unremarkable Metabolic panel is reassuring Troponin is 0.012 and is drawn approximately 4 hours after initial onset Independently reviewed EKG: Atrial fibrillation at a rate of 73 without acute ischemic changes Imaging studies independently reviewed: Radiology interpretation indicates improvement in pulmonary opacities, trace bilateral pleural effusions. No new findings Discussion: 83-year-old gentleman concerned with fleeting episodes of chest pinching type pain that has since resolved. Continues to be concerned with his dizziness when he stands up which has been a chronic issue and has had all appropriate workup and consultations are set up. No significant findings are identified. Reviewed labs CT, imaging studies and reassured him that I did not find anything life-threatening at this point. I do not think additional workup, imaging studies or hospitalization are going to be required. He is going to call his son to have him come pick him up and will keep all outpatient scheduled appointments as scheduled. He is safe for discharge Discharge Plan Departure Patient Disposition: Home Clinical Impression: Chest pain, non-cardiac Instructions: DI for Atypical Chest Pain Activity Restrictions/Additional Instructions: Thank you for coming in tonight I do not have a full explanation for the fleeting sharp stabbing pain you appreciated during the football game this afternoon. Fortunately, I am not finding any evidence of life-threatening abnormalities. Specifically your Coumadin is appropriate at 2.2, your atrial fibrillation is appropriately controlled, there is no evidence of collapsed lung, enlarged heart, infection or heart attack. I would encourage you to keep your scheduled outpatient follow up appointments If you find that you are getting worse or develop any new symptoms, please feel free to return to the emergency department for further evaluation. Prescriptions: No Action multivitamin [Multiple Vitamins] 1 EACH tablet 1 tab PO DAILY Qty: 0 cholecalciferol (vitamin D3) [Vitamin D3] 2,000 UNIT tablet 2,000 unit PO DAILY Qty: 0 warfarin 5 mg tablet See Rx Instructions .ROUTE .COMPLEX Qty: 108 3RF Dose Instruction: Take 1/2 tablet daily except on and Mon take 1 or as directed by doctor ; Rx Instructions: Take 5mg Monday and Monday and 2.5mg all other days, or as directed. finasteride 5 mg tablet 5 mg PO Q OTHER DAY Qty: 45 3RF tamsulosin 0.4 mg capsule 0.4 mg PO BID Qty: 180 3RF Rx Instructions: 30 minutes following the same meal each day metoprolol succinate 50 mg tablet extended release 24 hr 50 mg PO BID Rx Instructions: Take 1 tab in the am, and 1/2 tab in the pm atorvastatin 10 mg tablet 10 mg PO BEDTIME melatonin 10 mg tablet 10 mg PO BEDTIME PRN Iron High Potency 27 mg tablet 27 mg PO DAILY Patient Comments: Iron High Potency 240mg (27mg iron) Ocuvite 30unit 5mg 150mg 1 cap PO DAILY Referrals: Alejandro Pinto DO [Primary Care Provider] - Stand Alone Forms: Patient Portal/API
[2023-11-17 14:48] LABS: Aspartate Aminotransferase 37 IU/L (17-59)
[2023-11-17 14:49] LABS: HEMOLYSIS < 15 (0-50)
== END 2023-11-14 03:10 | disposition home or self-care (01) ==
PROVIDERS: Emergency Provider Emergency Medicine; Family Provider Family Medicine; PCP Family Medicine
DX: R07.89 Other chest pain (principal)
CPT/HCPCS: 36415; 71045; 80053; 82550; 83690; 83735; 84484; 85025; 85610; 85730; 93005; 99284

== ENCOUNTER 2023-11-21 02:05 | Emergency (ER) | payer MEDICARE, OTHER, SELFPAY ==
[2023-03-15 10:23] VITALS: BMI 23.5
[2023-11-21 02:11] VITALS: BP 170/81; PULSE 75; RESP 18; TEMP 36.8; O2SAT 98; BMI 23.6
[2023-11-21 03:20] VITALS: BP 154/74; PULSE 85; RESP 18; O2SAT 97
[2023-11-21 04:00] VITALS: BP 153/82; PULSE 75; RESP 17; O2SAT 97
--- NOTE | 2023-11-21 04:05 | ED.CHESTPAIN ---
HPI - Chest Pain General Chief Complaint: Chest Pain Stated Complaint: RT SIDE CHEST PAIN Time Seen by Provider: 11/21/23 04:05 Source: patient Mode of arrival: Ambulatory History of Present Illness HPI narrative: Patient is an 83-year-old male history of atrial fibrillation on warfarin, TIAs BPH presenting today with right-sided chest discomfort. He reports that he was going to bed when he noticed that it was hurting. It hurts to breathe and to touch it. He denies any injury. He has not been lifting anything heavy no coughing or sneezing. He is followed by Dr. Grant cardiology. He had an echo stress test in August he has had a Holter monitor in August. He actually has all those records with him. He reports that there is something wrong with his aortic valve were does not quite all the way assuming murmur. He has no fever or chills. Pain has really improved. It has not positional. Right anterior chest around rib 4 and 5. Patient has an appointment with Neurology. He has had ongoing double vision and feels like he has been lightheaded for a year. No symptoms are not new or changed today. He has not fallen or passed out. He denies any palpitations or worsening dizziness today. He has no numbness tingling or weakness. Related Data Home Medications Medication Instructions Recorded Confirmed multivitamin (Multiple Vitamins 1 tab PO DAILY ##0 03/06/13 11/16/23 tablet) cholecalciferol (vitamin D3) 50 2,000 unit PO DAILY #0 tabs 08/03/16 11/16/23 mcg (2,000 unit) tablet (Vitamin D3) Iron High Potency 27 mg PO DAILY 04/09/19 11/16/23 Ocuvite 30unit 5mg 150mg 1 cap PO DAILY 04/09/19 11/16/23 atorvastatin 10 mg tablet 10 mg PO BEDTIME 01/25/23 11/16/23 melatonin 10 mg tablet 10 mg PO BEDTIME PRN 01/25/23 11/16/23 metoprolol succinate 50 mg 50 mg PO BID 10/10/23 11/16/23 tablet,extended release 24 hr Previous Rx's Medication Instructions Recorded warfarin 5 mg tablet See Rx Instructions .Route 10/27/22 .COMPLEX #108 tabs finasteride 5 mg tablet 5 mg PO Q OTHER DAY #45 tabs 12/29/22 tamsulosin 0.4 mg capsule 0.4 mg PO BID #180 caps 12/29/22 Allergies Allergy/AdvReac Type Severity Reaction Status Date / Time No Known Drug Allergies Allergy Verified 11/16/23 16:20 Patient History Medical History Blurry vision, bilateral Insomnia COVID-19 virus infection Elevated random blood glucose level Aortic stenosis, severe Anticoagulated on warfarin Physician orders for life-sustaining treatment (POLST) form indicates patient wish for [id number] status Benign prostatic hyperplasia with urinary obstruction Fatigue Erectile dysfunction History of elevated PSA Balance problem Left arm weakness Vitamin D deficiency Pelvic somatic dysfunction Segmental and somatic dysfunction of sacral region Segmental and somatic dysfunction of lumbar region Chronic bilateral low back pain without sciatica Somatic dysfunction of both lower extremities Foot stiffness Segmental and somatic dysfunction of thoracic region Segmental and somatic dysfunction of rib cage Cervical somatic dysfunction Cranial somatic dysfunction Diplopia Chronic atrial fibrillation (01/02/18) Essential hypertension (02/16/16) 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) Incomplete emptying of bladder (02/16/16) Atrial fibrillation with rapid ventricular response Surgical History Hx of cholecystectomy Status post cholecystectomy Family History Mother CVA (cerebral vascular accident) Father Diabetes mellitus Brother Renal failure Social History marital status: number of children: 1 household members: none occupational status: previously employed Previous occupational history: [employer] Smoking Status: Former smoker alcohol intake: former caffeine: Yes Smoking Status: Former smoker alcohol intake frequency: 0-2 drinks per day Substance Use Type: does not use Exam Initial Vital Signs Initial Vital Signs: Vital Signs Temperature 98.2 F 11/21/23 02:11 Pulse Rate 75 11/21/23 02:11 Respiratory Rate 18 11/21/23 02:11 Blood Pressure 170/81 H 11/21/23 02:11 Pulse Oximetry 98 11/21/23 02:11 Oxygen Delivery Method Room Air 11/21/23 02:11 Course Orders Ordered: ED Orders 11/21/23 04:06 XR chest 1V Stat EKG-12 Lead Stat 11/21/23 04:23 Complete Blood Count AUTO DIFF Stat Comprehensive Metabolic Panel Stat Lipase Stat PTT Partial Thromboplastin Jerry Stat Prothrombin Time INR Stat Troponin & CK Cardiac Panel Stat Vital Signs Vital signs: Vital Signs - 8 hr 11/21/23 02:11 11/21/23 03:20 11/21/23 04:00 Temperature 98.2 F Pulse Rate 75 85 75 Respiratory Rate 18 18 17 Blood Pressure 170/81 H 154/74 H 153/82 H Pulse Oximetry 98 97 97 Oxygen Delivery Method Room Air Room Air Room Air 11/21/23 04:30 11/21/23 05:48 Temperature Pulse Rate 72 84 Respiratory Rate 18 18 Blood Pressure 158/80 H 136/80 Pulse Oximetry 98 99 Oxygen Delivery Method Room Air Room Air MDM - Chest Pain Lab Data 11/21/23 04:23 11/21/23 04:23 Labs: Lab Results 11/21/23 Range/Units 04:23 WBC 6.6 (4.5-11.0) X10^3/uL RBC 4.58 (4.5-5.9) X10^6/uL Hgb 14.2 (13.5-17.5) g/dL Hct 42.1 (41-53) % MCV 92.0 (80-100) fL MCH 30.9 (26-34) PG MCHC 33.6 (30-36) % RDW 14.2 (11.6-14.8) % Plt Count 269 (150-400) X10^3/uL Neut % (Auto) 65.6 (50-75) % Lymph % (Auto) 18.6 L (25-40) % [place] % (Auto) 9.8 (3-14) % Eos % (Auto) 4.3 H (2-4) % Baso % (Auto) 1.7 (0-2) % Neut # (Auto) 4300 (6824-7000) /uL Lymph # (Auto) 1200 (8648-9949) /uL [place] # (Auto) 600 (0-900) /uL Eos # (Auto) 300 (0-450) /uL Baso # (Auto) 100 (0-100) /uL PT 29.0 H (9.4-12.5) SECONDS INR 2.5 H (0.9-1.3) APTT 42 H (25.1-36.5) SECONDS Sodium 135 L (137-145) mmol/L Potassium 4.2 (3.4-5.1) mmol/L Chloride 104 (98-107) mmol/L Carbon Dioxide 24 (22-32) mmol/L BUN 19 (9-20) mg/dL Creatinine 1.11 (0.66-1.25) mg/dL Estimated GFR > 60 (>60) mL/min BUN/Creatinine Ratio 17.1 (6-22) Glucose 98 (80-110) mg/dL Calcium 9.1 (8.4-10.2) mg/dL Total Bilirubin 1.3 (0.2-1.3) mg/dL AST 28 (17-59) IU/L ALT 29 (<50) IU/L Alkaline Phosphatase 82 (38-126) U/L Total Creatine Kinase 52 L (55-170) U/L Troponin I < 0.012 (0.01-0.034) ng/mL Total Protein 6.6 (6.3-8.2) g/dL Albumin 3.7 (3.5-5.0) g/dL Globulin 2.9 (1.7-4.1) g/dL Albumin/Globulin Ratio 1.3 (1.0-2.8) Lipase 303 H (23-300) U/L Imaging Data Chest x-ray: Radiologist's Impression: Preliminary report: Hyperinflated lungs with evidence of old granulomatous disease. Stable probable chronic pleural parenchymal disease both lung bases cardiomegaly without failure ECG Data Interpretation: Atrial fibrillation rate [address] changes MDM Narrative Medical decision making narrative: Patient 83-year-old male presents today with right-sided chest pain. It is reproducible in 1 particular spot. Denies any injury cough sneeze or other. He comes with multiple records I have reviewed his echo stress cardiogram which was done August 2023 and was read as negative and low risk. He also had a Holter monitor/ZIO patch July 2023 to August 2023 showed atrial fibrillation Records have been reviewed he was previously 11/14/2023 for something similar ultimately discharged home with noncardiac chest pain. Blood work has been reviewed today: No significant clinical abnormalities. A negative troponin no electrolyte abnormality stable kidney function Chest x-ray has been reviewed Patient has reproducible right-sided chest pain. 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 He is in rate controlled atrial fibrillation. At this time I see no need for any admission or further testing. Pain is definitely right-sided reproducible consistent with musculoskeletal though he does not remember a specific injury. There is no rash, or evidence of shingles. Discharge Plan Departure Patient Disposition: Home Clinical Impression: Acute costochondritis, Atypical chest pain Instructions: Costochondritis, DI for Atypical Chest Pain Activity Restrictions/Additional Instructions: *You have been diagnosed with atypical chest pain *What to do: At this time blood work is reassuring. I think pain is musculoskeletal related. Try ice or heat. *Continue to take medications as directed Tylenol as needed for pain *Follow up with your primary care provider in 2-3 days or call [phone] *Return to ER if you should have increasing chest pain shortness breath passing out numbness tingling or weakness or any new, worsening or concerning symptoms Prescriptions: No Action multivitamin [Multiple Vitamins] 1 EACH tablet 1 tab PO DAILY Qty: 0 cholecalciferol (vitamin D3) [Vitamin D3] 2,000 UNIT tablet 2,000 unit PO DAILY Qty: 0 warfarin 5 mg tablet See Rx Instructions .ROUTE .COMPLEX Qty: 108 3RF Dose Instruction: Take 1/2 tablet daily except on and Mon take 1 or as directed by doctor ; Rx Instructions: Take 5mg Monday and Monday and 2.5mg all other days, or as directed. finasteride 5 mg tablet 5 mg PO Q OTHER DAY Qty: 45 3RF tamsulosin 0.4 mg capsule 0.4 mg PO BID Qty: 180 3RF Rx Instructions: 30 minutes following the same meal each day metoprolol succinate 50 mg tablet extended release 24 hr 50 mg PO BID Rx Instructions: Take 1 tab in the am, and 1/2 tab in the pm atorvastatin 10 mg tablet 10 mg PO BEDTIME melatonin 10 mg tablet 10 mg PO BEDTIME PRN Iron High Potency 27 mg tablet 27 mg PO DAILY Patient Comments: Iron High Potency 240mg (27mg iron) Ocuvite 30unit 5mg 150mg 1 cap PO DAILY Referrals: Alejandro Pinto DO [Primary Care Provider] - Stand Alone Forms: Patient Portal/API
--- NOTE | 2023-11-21 04:06 | DI.RAD.S_ITS ---
PROCEDURE: XR CHEST 1V INDICATIONS: chest pain TECHNIQUE: One view of the chest was acquired. COMPARISON: [facility], CR, XR CHEST 1V, 05/21/2023, 15:39. [facility], CR, XR CHEST 1V, 07/22/2023, 19:13. [facility], CR, XR CHEST 1V, 11/11/2023, 11:22. [facility], CR, XR CHEST 1V, 11/14/2023, 1:40. FINDINGS: Surgical changes and devices: None. Lungs and pleura: Hyperinflation consistent with COPD. Chronic blunting of costophrenic angles. Bilateral interstitial prominence and more confluent pleuroparenchymal densities in lower lobes. Calcified plaques or nodules are seen bilaterally. No pleural effusions or pneumothorax. Mediastinum: Mediastinal contours appear normal. Heart size is mildly increased. Bones and chest wall: No suspicious bony lesions. Overlying soft tissues appear unremarkable. IMPRESSION: 1. Chronic abnormalities in lungs bilaterally. There are calcified pleural plaques are nodules bilaterally and diffuse interstitial prominence with superimposed more confluent opacities in lower lobes. Recommend clinical correlation for asbestos related lung/pleural disease or history of remote granulomatous infections. If clinically indicated, chest CT would be helpful. 2. Chronic blunting of costophrenic angles likely secondary to pleural scarring. 3. Mild cardiomegaly. 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 Dictated by: Waleska Lux M.D. on 11/21/2023 at 7:57 Approved by: Waleska Lux M.D. on 11/21/2023 at 8:02
[2023-11-21 04:30] VITALS: BP 158/80; PULSE 72; RESP 18; O2SAT 98
[2023-11-21 04:35] LABS: Add Manual Diff / Slide Review NO; Basophils Absolute Auto 100 /uL (0-100); Basophils Percent Auto 1.7 % (0-2); Eosinophils Absolute Auto 300 /uL (0-450); Eosinophils Percent Auto 4.3 % (2-4); Hematocrit 42.1 % (41-53); Hemoglobin 14.2 g/dL (13.5-17.5); Lymphocytes Absolute Auto 1200 /uL (1100-4500); Lymphocytes Percent Auto 18.6 % (25-40); Mean Corpuscular HGB Conc 33.6 % (30-36); Mean Corpuscular Hemoglobin 30.9 PG (26-34); Monocytes Absolute Auto 600 /uL (0-900); Monocytes Percent Auto 9.8 % (3-14); Neutrophils Absolute Auto 4300 /uL (1500-7000); Neutrophils Percent Auto 65.6 % (50-75); Platelet Count 269 X10^3/uL (150-400); Red Blood Cell Count 4.58 X10^6/uL (4.5-5.9); Red Cell Distribution Width 14.2 % (11.6-14.8); White Blood Cell Count 6.6 X10^3/uL (4.5-11.0)
[2023-11-21 04:36] LABS: INR 2.5 (0.9-1.3)
[2023-11-21 04:38] LABS: PTT Partial Thromboplastin Tim 42 SECONDS (25.1-36.5)
[2023-11-21 04:40] LABS: Alanine Aminotransferase 29 IU/L (<50); Albumin 3.7 g/dL (3.5-5.0); Albumin Globulin Ratio 1.3 (1.0-2.8); Alkaline Phosphatase 82 U/L (38-126); Aspartate Aminotransferase 28 IU/L (17-59); BUN Creatinine Ratio 17.1 (6-22); Bilirubin Total 1.3 mg/dL (0.2-1.3); Blood Urea Nitrogen 19 mg/dL (9-20); Calcium 9.1 mg/dL (8.4-10.2); Carbon Dioxide 24 mmol/L (22-32); Chloride 104 mmol/L (98-107); Creatine Kinase 52 U/L (55-170); Estimated Glomerular Filt Rate > 60 mL/min (>60); Globulin 2.9 g/dL (1.7-4.1); Glucose 98 mg/dL (80-110); HEMOLYSIS < 15 (0-50); Lipase 303 U/L (23-300); Potassium 4.2 mmol/L (3.4-5.1); Sodium 135 mmol/L (137-145); Total Protein 6.6 g/dL (6.3-8.2)
[2023-11-21 04:52] LABS: Troponin I < 0.012 ng/mL (0.01-0.034)
[2023-11-21 05:48] VITALS: BP 136/80; PULSE 84; RESP 18; O2SAT 99
== END 2023-11-21 05:49 | disposition home or self-care (01) ==
PROVIDERS: Emergency Provider Emergency Medicine; Family Provider Family Medicine; PCP Family Medicine
DX: M94.0 Chondrocostal junction syndrome [Tietze] (principal); R07.89 Other chest pain; I48.91 Unspecified atrial fibrillation; Z79.01 Long term (current) use of anticoagulants
CPT/HCPCS: 36415; 71045; 80053; 82550; 83690; 84484; 85025; 85610; 85730; 93005; 93010; 99283; 99284

== ENCOUNTER 2023-12-01 19:18 | Emergency (ER) | payer MEDICARE, OTHER, SELFPAY ==
[2023-03-15 10:23] VITALS: BMI 23.5
[2023-12-01 19:20] VITALS: BP 149/93; PULSE 75; RESP 16; TEMP 36.5; O2SAT 98; BMI 23.6
[2023-12-01 20:02] VITALS: PULSE 86; O2SAT 96
[2023-12-01 20:05] VITALS: BP 132/74; PULSE 83; RESP 10; O2SAT 97
[2023-12-01 20:07] LABS: Add Manual Diff / Slide Review NO; Basophils Absolute Auto 100 /uL (0-100); Basophils Percent Auto 0.9 % (0-2); Eosinophils Absolute Auto 100 /uL (0-450); Eosinophils Percent Auto 2.1 % (2-4); Hematocrit 41.8 % (41-53); Hemoglobin 13.9 g/dL (13.5-17.5); Lymphocytes Absolute Auto 1000 /uL (1100-4500); Lymphocytes Percent Auto 14.8 % (25-40); Mean Corpuscular HGB Conc 33.2 % (30-36); Mean Corpuscular Hemoglobin 30.3 PG (26-34); Mean Corpuscular Volume 91.5 fL (80-100); Monocytes Absolute Auto 700 /uL (0-900); Monocytes Percent Auto 10.5 % (3-14); Neutrophils Absolute Auto 4700 /uL (1500-7000); Neutrophils Percent Auto 71.7 % (50-75); Platelet Count 286 X10^3/uL (150-400); Red Blood Cell Count 4.57 X10^6/uL (4.5-5.9); Red Cell Distribution Width 14.4 % (11.6-14.8); White Blood Cell Count 6.5 X10^3/uL (4.5-11.0)
[2023-12-01 20:23] LABS: BUN Creatinine Ratio 17.2 (6-22); Blood Urea Nitrogen 23 mg/dL (9-20); Calcium 8.9 mg/dL (8.4-10.2); Carbon Dioxide 24 mmol/L (22-32); Chloride 104 mmol/L (98-107); Estimated Glomerular Filt Rate 52 mL/min (>60); Glucose 100 mg/dL (80-110); HEMOLYSIS < 15 (0-50); Potassium 4.5 mmol/L (3.4-5.1); Sodium 133 mmol/L (137-145)
[2023-12-01 20:30] VITALS: BP 154/74; PULSE 80; RESP 22; O2SAT 96
--- NOTE | 2023-12-01 20:48 | ED.GENADULT ---
HPI - General Adult General Chief complaint: Dizziness Stated complaint: Light headed, dizzy, blurred vision, dbl vision Time Seen by Provider: 12/01/23 19:34 Source: patient Mode of arrival: Ambulatory History of Present Illness HPI narrative: 83-year-old male. Has a history of atrial fibrillation. Is on anticoagulation for this. Has been seen in the emergency department multiple times for episodes of lightheadedness, dizziness when he stands up and blurred vision. He has seen his primary doctor. Has also seen ENT who told him that everything looked okay as far as his ears. He has a follow-up with Neurology on Monday of next week. He states that he is here in the emergency department today for the same symptoms that he has had multiple times in the past he just thought that it was worse today. It was more pronounced. He is feeling much better when he lays down. He has been eating and drinking like normal. Taking all his medications like normal. Denies chest pain, shortness of breath, palpitations, ringing in his ears, fevers or headache. He has not fallen. He is neuropathy in his feet and this is not changed. Related Data Home Medications Medication Instructions Recorded Confirmed multivitamin (Multiple Vitamins 1 tab PO DAILY ##0 03/06/11/16/23 tablet) cholecalciferol (vitamin D3) 50 2,000 unit PO DAILY #0 tabs 08/03/16 11/16/23 mcg (2,000 unit) tablet (Vitamin D3) Iron High Potency 27 mg PO DAILY 04/09/19 11/16/23 Ocuvite 30unit 5mg 150mg 1 cap PO DAILY 04/09/19 11/16/23 atorvastatin 10 mg tablet 10 mg PO BEDTIME 01/25/23 11/16/23 melatonin 10 mg tablet 10 mg PO BEDTIME PRN 01/25/23 11/16/23 Previous Rx's Medication Instructions Recorded warfarin 5 mg tablet See Rx Instructions .Route 10/27/22 .COMPLEX #108 tabs finasteride 5 mg tablet 5 mg PO Q OTHER DAY #45 tabs 12/29/22 tamsulosin 0.4 mg capsule 0.4 mg PO BID #180 caps 12/29/22 metoprolol succinate 25 mg 25 mg PO .qhs #90 tabs 11/21/23 tablet,extended release 24 hr metoprolol succinate 50 mg 50 mg PO DAILY #90 tabs 11/21/23 tablet,extended release 24 hr Allergies Allergy/AdvReac Type Severity Reaction Status Date / Time No Known Drug Allergies Allergy Verified 11/16/23 16:20 Review of Systems Review of Systems ROS Unobtainable: All systems reviewed & are unremarkable except as noted in HPI and below Constitutional Constitutional: Reports system reviewed and no additional complaints, except as documented Eyes Eyes: Reports system reviewed and no additional complaints, except as documented ENT Ears, Nose, Mouth, and Throat: Reports system reviewed and no additional complaints, except as documented Neurologic Neurologic: Reports system reviewed and no additional complaints, except as documented Patient History Medical History Blurry vision, bilateral Insomnia COVID-19 virus infection Elevated random blood glucose level Aortic stenosis, severe Anticoagulated on warfarin Physician orders for life-sustaining treatment (POLST) form indicates patient wish for [id number] status Benign prostatic hyperplasia with urinary obstruction Fatigue Erectile dysfunction History of elevated PSA Balance problem Left arm weakness Vitamin D deficiency Pelvic somatic dysfunction Segmental and somatic dysfunction of sacral region Segmental and somatic dysfunction of lumbar region Chronic bilateral low back pain without sciatica Somatic dysfunction of both lower extremities Foot stiffness Segmental and somatic dysfunction of thoracic region Segmental and somatic dysfunction of rib cage Cervical somatic dysfunction Cranial somatic dysfunction Diplopia Chronic atrial fibrillation (01/02/18) Essential hypertension (02/16/16) 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) Incomplete emptying of bladder (02/16/16) Atrial fibrillation with rapid ventricular response Surgical History Hx of cholecystectomy Status post cholecystectomy Family History Mother CVA (cerebral vascular accident) Father Diabetes mellitus Brother Renal failure Social History marital status: number of children: 1 household members: none occupational status: previously employed Previous occupational history: [place] Smoking Status: Former smoker alcohol intake: former caffeine: Yes Smoking Status: Former smoker alcohol intake frequency: 0-2 drinks per day Substance Use Type: does not use Exam Initial Vital Signs Initial Vital Signs: Vital Signs Temperature 97.7 F 12/01/23 19:20 Pulse Rate 75 12/01/23 19:20 Respiratory Rate 16 12/01/23 19:20 Blood Pressure 149/93 H 12/01/23 19:20 Pulse Oximetry 98 12/01/23 19:20 Oxygen Delivery Method Room Air 12/01/23 19:20 HENMT Head: normal to inspection and normocephalic Resp Effort & Inspection: normal respiratory effort Auscultation: clear to auscultation bilaterally Cardio Rate: regular rate Rhythm: abnormal rhythm Skin General: no rashes or lesions noted Neuro General: patient alert, patient awake, patient oriented x3 and moves all extremities Cranial Nerves: CN's II-XI intact bilaterally Cognition: normal cognition Speech: speech normal Gait: normal gait Extrem General: capillary refill normal Scores GCS Rubin coma scale eye opening: Spontaneous Rubin coma scale verbal response: Orientated [place] coma scale motor response: Obey commands Rubin coma scale total score: 15 Course Orders Ordered: ED Orders 12/01/23 19:35 EKG-12 Lead Stat 12/01/23 19:50 Basic Metabolic Panel Stat Complete Blood Count AUTO DIFF Stat Vital Signs Vital signs: Vital Signs - 8 hr 12/01/23 19:20 12/01/23 20:02 12/01/23 20:05 Temperature 97.7 F Pulse Rate 75 86 83 Respiratory Rate 16 10 L Blood Pressure 149/93 H Pulse Oximetry 98 96 97 Oxygen Delivery Method Room Air Room Air Room Air 12/01/23 20:05 12/01/23 20:30 12/01/23 20:30 Temperature Pulse Rate 80 Respiratory Rate 22 Blood Pressure 132/74 154/74 H Pulse Oximetry 96 Oxygen Delivery Method Room Air 12/01/23 21:00 12/01/23 21:00 12/01/23 21:30 Temperature Pulse Rate 81 81 Respiratory Rate 26 H Blood Pressure 146/96 H Pulse Oximetry 97 98 Oxygen Delivery Method Room Air 12/01/23 21:30 Temperature Pulse Rate Respiratory Rate 18 Blood Pressure 162/90 H Pulse Oximetry Oxygen Delivery Method Medical Decision Making Medical Records Medical records reviewed: Yes I reviewed the patient's medical records. Lab Data Lab results reviewed: Yes I reviewed the patient's lab results. 12/01/23 19:50 12/01/23 19:50 Labs: Lab Results 12/01/23 Range/Units 19:50 WBC 6.5 (4.5-11.0) X10^3/uL RBC 4.57 (4.5-5.9) X10^6/uL Hgb 13.9 (13.5-17.5) g/dL Hct 41.8 (41-53) % MCV 91.5 (80-100) fL MCH 30.3 (26-34) PG MCHC 33.2 (30-36) % RDW 14.4 (11.6-14.8) % Plt Count 286 (150-400) X10^3/uL Neut % (Auto) 71.7 (50-75) % Lymph % (Auto) 14.8 L (25-40) % Boundary % (Auto) 10.5 (3-14) % Eos % (Auto) 2.1 (2-4) % Baso % (Auto) 0.9 (0-2) % Neut # (Auto) 4700 (7181-2320) /uL Lymph # (Auto) 1000 L (7183-0923) /uL Bound[place] # (Auto) 700 (0-900) /uL Eos # (Auto) 100 (0-450) /uL Baso # (Auto) 100 (0-100) /uL Sodium 133 L (137-145) mmol/L Potassium 4.5 (3.4-5.1) mmol/L Chloride 104 (98-107) mmol/L Carbon Dioxide 24 (22-32) mmol/L BUN 23 H (9-20) mg/dL Creatinine 1.34 H (0.66-1.25) mg/dL Estimated GFR 52 L (>60) mL/min BUN/Creatinine Ratio 17.2 (6-22) Glucose 100 (80-110) mg/dL Calcium 8.9 (8.4-10.2) mg/dL Urine Dip Bedside Urine Glucose Negative Bedside Urine Bilirubin - Negative Bedside Urine Ketone - Negative Urine Specific [place] 1.015 Bedside Urine Occult Blood - Negative Bedside Urine pH 6 Bedside Urine Protein - Negative Bedside Urine Urobilinogen - Negative Bedside Urine Nitrite - Negative Bedside Urine Leukocytes - Negative Esterase Point of care testing: Urine Dip Bedside Urine Glucose Negative Bedside Urine Bilirubin - Negative Bedside Urine Ketone - Negative Urine Specific [place] 1.015 Bedside Urine Occult Blood - Negative Bedside Urine pH 6 Bedside Urine Protein - Negative Bedside Urine Urobilinogen - Negative Bedside Urine Nitrite - Negative Bedside Urine Leukocytes - Negative Esterase ECG Data Attestation: I personally reviewed and interpreted this ECG as follows: Interpretation: Atrial fibrillation Ventricular rate is 79 Normal axis Normal QRS Normal QTC No ST T wave changes MDM Narrative Medical decision making narrative: Patient is here for the same symptoms that he has been seen multiple times in the past. His labs are unremarkable. He is AFib on his EKG but this is asymptomatic for him and he is relatively rate controlled. His EKG is unremarkable. He has had head CT and MRI in the past for these symptoms. He has a follow-up with Neurology next week. Had an extensive discussion with him regarding his symptoms. I feel that repeating any of those studies today would not add much in his workup. He understands the lack of a definitive diagnosis in the importance of following up with Neurology. He is going to see the director of human resources in the future as well but has yet to schedule this appointment. He ambulated around the department. He has a walker at home. Has a cane at home. No indication for admission to the hospital. Will discharge patient home with return precautions. He expressed understanding and agreement with plan. Discharge Plan Departure Patient Disposition: Home Clinical Impression: Dizziness Instructions: DI for Dizziness-Nonvertigo Activity Restrictions/Additional Instructions: Recommend that you continue to take all of your medications as directed and keep all of your scheduled medical appointments specifically with Neurology next week. It is important that you avoid falling in his that means either using the walking sticks with a cane for even the walker that maybe what you need to do for now. Return to the emergency department for new symptoms. Prescriptions: No Action multivitamin [Multiple Vitamins] 1 EACH tablet 1 tab PO DAILY Qty: 0 cholecalciferol (vitamin D3) [Vitamin D3] 2,000 UNIT tablet 2,000 unit PO DAILY Qty: 0 warfarin 5 mg tablet See Rx Instructions .ROUTE .COMPLEX Qty: 108 3RF Dose Instruction: Take 1/2 tablet daily except on and Mon take 1 or as directed by doctor ; Rx Instructions: Take 5mg Monday and Monday and 2.5mg all other days, or as directed. finasteride 5 mg tablet 5 mg PO Q OTHER DAY Qty: 45 3RF tamsulosin 0.4 mg capsule 0.4 mg PO BID Qty: 180 3RF Rx Instructions: 30 minutes following the same meal each day metoprolol succinate 50 mg tablet extended release 24 hr 50 mg PO DAILY Qty: 90 3RF metoprolol succinate 25 mg tablet extended release 24 hr 25 mg PO .qhs Qty: 90 3RF atorvastatin 10 mg tablet 10 mg PO BEDTIME melatonin 10 mg tablet 10 mg PO BEDTIME PRN Iron High Potency 27 mg tablet 27 mg PO DAILY Patient Comments: Iron High Potency 240mg (27mg iron) Ocuvite 30unit 5mg 150mg 1 cap PO DAILY Referrals: Alejandro Pinto DO [Primary Care Provider] - Stand Alone Forms: Patient Portal/API
[2023-12-01 21:00] VITALS: BP 146/96; PULSE 81; RESP 26; O2SAT 97
[2023-12-01 21:30] VITALS: BP 162/90; PULSE 81; RESP 18; O2SAT 98
== END 2023-12-01 21:45 | disposition home or self-care (01) ==
PROVIDERS: Emergency Provider Emergency Medicine; Family Provider Family Medicine; PCP Family Medicine
DX: R42 Dizziness and giddiness (principal); R07.9 Chest pain, unspecified
CPT/HCPCS: 36415; 80048; 81003; 85025; 93005; 93010; 99283; 99284

== ENCOUNTER → 2023-12-13 12:18 | Outpatient (CLI) | payer MEDICARE, OTHER, SELFPAY ==
[2023-03-15 10:23] VITALS: BMI 23.5
--- NOTE | 2023-12-13 12:20 | DI.US.S_ITS ---
PROCEDURE: US CAROTID DOPPLER BI INDICATIONS: Ongoing dizziness TECHNIQUE: Color and pulse Doppler interrogation was performed of both carotid systems, with image documentation and velocity measurements. COMPARISON: [facility], MR, MR STROKE, 07/19/2020, 9:25. [facility], CT, CT ANGIO HEAD AND NECK, 03/14/2023, 5:18. [facility], CT, CT ANGIO HEAD AND NECK, 06/28/2022, 20:43. [facility], CT, CT ANGIO HEAD AND NECK, 02/23/2020, 19:29. FINDINGS: Stenosis calculations are based on SRU (Society of Radiologists in Ultrasound) criteria. The flow velocities and the arterial waveforms are normal within both carotid arterial systems. Atherosclerotic plaque is seen on both sides. The estimated degree of internal carotid artery stenosis is less than 50%. Antegrade flow is confirmed within both vertebral arteries. IMPRESSION: No hemodynamically significant stenosis is seen. Atherosclerotic plaque is noted bilaterally. Dictated by: Rafal Jackson M.D. on 12/13/2023 at 12:21 Approved by: Rafal Jackson M.D. on 12/13/2023 at 12:30
--- NOTE | 2023-12-13 12:20 | DI.CT.S_ITS ---
PROCEDURE: CT CHEST WO CON INDICATIONS: Prior CXR findings, hx of asbestos exposure, prior tobacco u TECHNIQUE: Noncontrast 5 mm thick sections acquired from the pulmonary apices to the posterior costophrenic angles. 1 mm lung window, 5 mm thick coronal and sagittal and 7 mm axial MIP reformats were then acquired. For radiation dose reduction, the following was used: automated exposure control, adjustment of mA and/or kV according to patient size. COMPARISON: [facility], CR, XR CHEST 1V, 11/21/2023, 4:06. FINDINGS: Image quality: Diagnostic. Lower Neck: No enlarged lymph nodes. Thyroid: No thyroid nodules which require sonographic follow up, per consensus guidelines. Axillae: No enlarged lymph nodes. Chest Wall: Unremarkable. Bones: Unremarkable. Lungs and Pleura: Pleural plaques are present bilaterally within the posterior dependent aspects of the lungs. These are partially calcified. Fibrotic changes are also present at the bilateral lung bases, slightly more severe on the right than on the left. There is likely a small loculated effusion tracking within the right oblique fissure. No suspicious pulmonary nodules or mass lesions. Heart: Heart size is normal. No pericardial effusion. Thoracic Vessels: The ascending thoracic aorta measures 4.4 cm in oblique axial diameter. Scattered atheromatous calcifications are present within the aortic arch. Mediastinum and Zenaida: No enlarged lymph nodes. Esophagus: No wall thickening. No hiatal hernia. Upper Abdomen: Visualized upper abdomen solid organs and bowel loops appear normal. IMPRESSION: 1. Pleural plaques, some of which are calcified and basilar fibrosis. These findings are consistent with prior asbestos exposure if clinically appropriate. 2. No suspicious pulmonary nodules or mass lesions. Dictated by: Nikole Trujillo M.D. on 12/13/2023 at 15:41 Approved by: Nikole Trujillo M.D. on 12/13/2023 at 15:50
== END ==
PROVIDERS: Family Provider Family Medicine; PCP Family Medicine; Referring Provider Family Medicine; Visit Provider Family Medicine
DX: I65.23 Occlusion and stenosis of bilateral carotid arteries (principal); I71.21 Aneurysm of the ascending aorta, without rupture; J92.9 Pleural plaque without asbestos; R42 Dizziness and giddiness; R53.83 Other fatigue; R26.89 Other abnormalities of gait and mobility; R91.8 Other nonspecific abnormal finding of lung field; Z77.090 Contact with and (suspected) exposure to asbestos
CPT/HCPCS: 71250; 93880

== ENCOUNTER 2024-01-19 13:39 | Emergency (ER) | payer MEDICARE, OTHER, SELFPAY ==
[2023-03-15 10:23] VITALS: BMI 23.5
[2024-01-19] VITALS (21 sets, daily range): BP systolic 138–194; BP diastolic 69–107; PULSE 68–110; RESP 17–35; TEMP 36.3; O2SAT 83–99; BMI 23.5
--- NOTE | 2024-01-19 13:49 | DI.RAD.S_ITS ---
PROCEDURE: XR CHEST 1V INDICATIONS: chest pain TECHNIQUE: One view of the chest was acquired. COMPARISON: [facility], CR, XR CHEST 1V, 11/21/2023, 4:06. FINDINGS: Surgical changes and devices: None. Lungs and pleura: Calcified granulomas are present. Minimal right effusion. Mild increased appearance of interstitial prominence within the bases relatively unchanged. Linear right basilar opacity likely atelectasis. Mediastinum: Mediastinal contours appear normal. Heart size is normal. Bones and chest wall: No suspicious bony lesions. Overlying soft tissues appear unremarkable. IMPRESSION: Minimal left effusion with increased interstitial opacities suggestive of edema. Dictated by: Linda Hester M.D. on 01/19/2024 at 14:32 Approved by: Linda Hester M.D. on 01/19/2024 at 14:32
[2024-01-19 14:19] LABS: Add Manual Diff / Slide Review NO; Basophils Absolute Auto 0 /uL (0-100); Basophils Percent Auto 0.5 % (0-2); Eosinophils Absolute Auto 200 /uL (0-450); Eosinophils Percent Auto 2.4 % (2-4); Hematocrit 44.1 % (41-53); Hemoglobin 14.8 g/dL (13.5-17.5); Lymphocytes Absolute Auto 1000 /uL (1100-4500); Lymphocytes Percent Auto 13.4 % (25-40); Mean Corpuscular HGB Conc 33.6 % (30-36); Mean Corpuscular Hemoglobin 31.3 PG (26-34); Mean Corpuscular Volume 93.2 fL (80-100); Monocytes Absolute Auto 700 /uL (0-900); Monocytes Percent Auto 8.9 % (3-14); Neutrophils Absolute Auto 5600 /uL (1500-7000); Neutrophils Percent Auto 74.8 % (50-75); Platelet Count 285 X10^3/uL (150-400); Red Blood Cell Count 4.74 X10^6/uL (4.5-5.9); Red Cell Distribution Width 14.1 % (11.6-14.8); White Blood Cell Count 7.5 X10^3/uL (4.5-11.0)
[2024-01-19 14:27] LABS: INR 2.3 (0.9-1.3); Prothrombin Time 26.6 SECONDS (9.4-12.5)
[2024-01-19 14:29] LABS: PTT Partial Thromboplastin Tim 49 SECONDS (25.1-36.5)
[2024-01-19 14:31] LABS: Alanine Aminotransferase 29 IU/L (<50); Albumin 4.1 g/dL (3.5-5.0); Albumin Globulin Ratio 1.2 (1.0-2.8); Alkaline Phosphatase 91 U/L (38-126); Aspartate Aminotransferase 33 IU/L (17-59); BUN Creatinine Ratio 22.1 (6-22); Bilirubin Total 1.4 mg/dL (0.2-1.3); Blood Urea Nitrogen 23 mg/dL (9-20); Calcium 8.7 mg/dL (8.4-10.2); Carbon Dioxide 27 mmol/L (22-32); Chloride 106 mmol/L (98-107); Creatine Kinase 65 U/L (55-170); Estimated Glomerular Filt Rate > 60 mL/min (>60); Globulin 3.3 g/dL (1.7-4.1); Glucose 88 mg/dL (80-110); HEMOLYSIS 32 (0-50); Lipase 336 U/L (23-300); Potassium 4.1 mmol/L (3.4-5.1); Sodium 138 mmol/L (137-145); Total Protein 7.4 g/dL (6.3-8.2)
[2024-01-19 14:43] LABS: Troponin I < 0.012 ng/mL (0.01-0.034)
--- NOTE | 2024-01-19 17:27 | ED_ITS ---
HPI - Chest Pain <Hemant Clement MD - Last Filed: 02/10/24 14:47> General Chief Complaint: Chest Pain Stated Complaint: trouble walking, tumbling,light headed, chills Time Seen by Provider: 01/19/24 18:03 Source: patient Mode of arrival: Wheelchair Limitations: no limitations Related Data Home Medications Medication Instructions Recorded Confirmed multivitamin (Multiple Vitamins 1 tab PO DAILY ##0 03/06/13 01/09/24 tablet) cholecalciferol (vitamin D3) 50 2,000 unit PO DAILY #0 tabs 08/03/16 01/09/24 mcg (2,000 unit) tablet (Vitamin D3) Iron High Potency 27 mg PO DAILY 04/09/19 01/09/24 Ocuvite 30unit 5mg 150mg 1 cap PO DAILY 04/09/19 01/09/24 atorvastatin 10 mg tablet 10 mg PO BEDTIME 01/25/23 01/09/24 melatonin 10 mg tablet 10 mg PO BEDTIME PRN 01/25/23 01/09/24 Previous Rx's Medication Instructions Recorded finasteride 5 mg tablet 5 mg PO Q OTHER DAY #45 tabs 01/31/24 warfarin 5 mg tablet See Rx Instructions .Route 01/31/24 .COMPLEX #108 tabs metoprolol succinate 25 mg 25 mg PO .qhs #90 tabs 02/02/24 tablet,extended release 24 hr metoprolol succinate 50 mg 50 mg PO DAILY #90 tabs 02/02/24 tablet,extended release 24 hr tamsulosin 0.4 mg capsule 0.4 mg PO BID #180 caps 02/02/24 Allergies Allergy/AdvReac Type Severity Reaction Status Date / Time No Known Drug Allergies Allergy Verified 01/09/24 15:06 <Nahomi Allen MD - Last Filed: 01/20/24 18:43> History of Present Illness HPI narrative: 83-year-old male presents by private vehicle from home for difficulty walking, off-balance feeling, lightheadedness. Patient states that he has had symptoms for 1 year. He has been evaluated by his primary care doctor in the emergency department several times for this complaint, but no cause has been found. He states that while sitting still he was fine but if he gets up to walk around very shortly thereafter he becomes lightheaded, dizzy, with difficulty walking. He states that he was frustrated because he wants to be active but can not because of his symptoms. Patient states he presented tonight hoping that may be a another evaluation wood shed some light on his condition. He states that he does have a pending referral to physical therapy for his condition from his primary care doctor. Review of Systems <Nahomi Allen MD - Last Filed: 01/20/24 18:43> Review of Systems Narrative: Negative except as noted above Patient History <Hemant Clement MD - Last Filed: 02/10/24 14:47> Medical History Orthostatic hypotension Blurry vision, bilateral Insomnia COVID-19 virus infection Elevated random blood glucose level Aortic stenosis, severe Anticoagulated on warfarin Physician orders for life-sustaining treatment (POLST) form indicates patient wish for [id number] status Benign prostatic hyperplasia with urinary obstruction Fatigue Erectile dysfunction History of elevated PSA Balance problem Left arm weakness Vitamin D deficiency Pelvic somatic dysfunction Segmental and somatic dysfunction of sacral region Segmental and somatic dysfunction of lumbar region Chronic bilateral low back pain without sciatica Somatic dysfunction of both lower extremities Foot stiffness Segmental and somatic dysfunction of thoracic region Segmental and somatic dysfunction of rib cage Cervical somatic dysfunction Cranial somatic dysfunction Diplopia Chronic atrial fibrillation (01/02/18) Essential hypertension (02/16/16) 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) Incomplete emptying of bladder (02/16/16) Atrial fibrillation with rapid ventricular response Surgical History Hx of cholecystectomy Status post cholecystectomy Family History Mother CVA (cerebral vascular accident) Father Diabetes mellitus Brother Renal failure Social History marital status: number of children: 1 household members: none occupational status: previously employed Previous occupational history: [employer] Smoking Status: Former smoker alcohol intake: former caffeine: Yes Smoking Status: Former smoker alcohol intake frequency: 0-2 drinks per day Substance Use Type: does not use Exam <Hemant Clement MD - Last Filed: 02/10/24 14:47> Initial Vital Signs Initial Vital Signs: Vital Signs Temperature 97.4 F L 01/19/24 13:43 Pulse Rate 82 01/19/24 13:43 Respiratory Rate 18 01/19/24 13:43 Blood Pressure 165/87 H 01/19/24 13:43 Pulse Oximetry 97 01/19/24 13:43 Oxygen Delivery Method Room Air 01/19/24 13:43 <Nahomi Allen MD - Last Filed: 01/20/24 18:43> Initial Vital Signs Initial Vital Signs: Vital Signs Temperature 97.4 F L 01/19/24 13:43 Pulse Rate 82 01/19/24 13:43 Respiratory Rate 18 01/19/24 13:43 Blood Pressure 165/87 H 01/19/24 13:43 Pulse Oximetry 97 01/19/24 13:43 Oxygen Delivery Method Room Air 01/19/24 13:43 Const: Awake, alert, no acute distress, nontoxic appearing Cardiac: regular rate, regular rhythm RESP: unlabored, clear bilaterally, no wheezing GI: Atraumatic, soft, nontender, nondistended, no rebound, no guarding MSK: Atraumatic, full range of motion, pulses equal Skin: Warm, Dry, intact, no rashes Neuro: AO x3, CN II-XII grossly intact, moves all extremities Course <Hemant Clement MD - Last Filed: 02/10/24 14:47> Orders Ordered: Discontinued Medications Aspirin (Aspirin 81 Mg Chew Tab) 324 mg PO NOW ONE Stop: 01/19/24 13:50 Last Admin: 01/19/24 14:36 Dose: Not Given Documented By: ZGG Vital Signs Vital signs: Vital Signs - 8 hr 01/19/24 14:33 01/19/24 14:33 01/19/24 15:00 Pulse Rate 68 80 Respiratory Rate 19 Blood Pressure 172/85 H Pulse Oximetry 97 01/19/24 15:00 01/19/24 15:30 01/19/24 15:30 Pulse Rate 82 Respiratory Rate 17 Blood Pressure 141/70 H 150/82 H Pulse Oximetry 99 01/19/24 16:00 01/19/24 16:00 01/19/24 16:30 Pulse Rate 73 Respiratory Rate 21 Blood Pressure 178/72 H 138/88 Pulse Oximetry 99 01/19/24 16:30 01/19/24 17:00 01/19/24 17:00 Pulse Rate 80 71 Respiratory Rate 24 17 Blood Pressure 149/69 H Pulse Oximetry 99 96 01/19/24 17:30 01/19/24 17:31 01/19/24 17:31 Pulse Rate 74 73 Respiratory Rate 18 18 Blood Pressure 160/91 H Pulse Oximetry 98 98 01/19/24 18:08 01/19/24 18:11 01/19/24 18:11 Pulse Rate 75 Respiratory Rate 20 Blood Pressure 182/80 H Pulse Oximetry 83 L 97 01/19/24 18:30 01/19/24 18:30 01/19/24 19:00 Pulse Rate 79 79 Respiratory Rate 20 21 Blood Pressure 153/75 H Pulse Oximetry 98 98 01/19/24 19:01 01/19/24 19:01 01/19/24 19:30 Pulse Rate 75 Respiratory Rate 22 Blood Pressure 194/84 H 188/104 H Pulse Oximetry 99 01/19/24 19:30 Pulse Rate 78 Respiratory Rate 20 Blood Pressure Pulse Oximetry 98 <Nahomi Allen MD - Last Filed: 01/20/24 18:43> Orders Ordered: Discontinued Medications Aspirin (Aspirin 81 Mg Chew Tab) 324 mg PO NOW ONE Stop: 01/19/24 13:50 Last Admin: 01/19/24 14:36 Dose: Not Given Documented By: GABRIEL Vital Signs Vital signs: Vital Signs - 8 hr 01/19/24 14:33 01/19/24 14:33 01/19/24 15:00 Pulse Rate 68 80 Respiratory Rate 19 Blood Pressure 172/85 H Pulse Oximetry 97 01/19/24 15:00 01/19/24 15:30 01/19/24 15:30 Pulse Rate 82 Respiratory Rate 17 Blood Pressure 141/70 H 150/82 H Pulse Oximetry 99 01/19/24 16:00 01/19/24 16:00 01/19/24 16:30 Pulse Rate 73 Respiratory Rate 21 Blood Pressure 178/72 H 138/88 Pulse Oximetry 99 01/19/24 16:30 01/19/24 17:00 01/19/24 17:00 Pulse Rate 80 71 Respiratory Rate 24 17 Blood Pressure 149/69 H Pulse Oximetry 99 96 01/19/24 17:30 01/19/24 17:31 01/19/24 17:31 Pulse Rate 74 73 Respiratory Rate 18 18 Blood Pressure 160/91 H Pulse Oximetry 98 98 01/19/24 18:08 01/19/24 18:11 01/19/24 18:11 Pulse Rate 75 Respiratory Rate 20 Blood Pressure 182/80 H Pulse Oximetry 83 L 97 01/19/24 18:30 01/19/24 18:30 01/19/24 19:00 Pulse Rate 79 79 Respiratory Rate 20 21 Blood Pressure 153/75 H Pulse Oximetry 98 98 01/19/24 19:01 01/19/24 19:01 01/19/24 19:30 Pulse Rate 75 Respiratory Rate 22 Blood Pressure 194/84 H 188/104 H Pulse Oximetry 99 01/19/24 19:30 Pulse Rate 78 Respiratory Rate 20 Blood Pressure Pulse Oximetry 98 MDM - Chest Pain <Hemant Clement MD - Last Filed: 02/10/24 14:47> Lab Data 01/19/24 14:11 01/19/24 14:11 Labs: Lab Results 01/19/24 Range/Units 14:11 WBC 7.5 (4.5-11.0) X10^3/uL RBC 4.74 (4.5-5.9) X10^6/uL Hgb 14.8 (13.5-17.5) g/dL Hct 44.1 (41-53) % MCV 93.2 (80-100) fL MCH 31.3 (26-34) PG MCHC 33.6 (30-36) % RDW 14.1 (11.6-14.8) % Plt Count 285 (150-400) X10^3/uL Neut % (Auto) 74.8 (50-75) % Lymph % (Auto) 13.4 L (25-40) % [place] % (Auto) 8.9 (3-14) % Eos % (Auto) 2.4 (2-4) % Baso % (Auto) 0.5 (0-2) % Neut # (Auto) 5600 (8994-3171) /uL Lymph # (Auto) 1000 L (9541-5044) /uL [place] # (Auto) 700 (0-900) /uL Eos # (Auto) 200 (0-450) /uL Baso # (Auto) 0 (0-100) /uL PT 26.6 H (9.4-12.5) SECONDS INR 2.3 H (0.9-1.3) APTT 49 H (25.1-36.5) SECONDS Sodium 138 (137-145) mmol/L Potassium 4.1 (3.4-5.1) mmol/L Chloride 106 (98-107) mmol/L Carbon Dioxide 27 (22-32) mmol/L BUN 23 H (9-20) mg/dL Creatinine 1.04 (0.66-1.25) mg/dL Estimated GFR > 60 (>60) mL/min BUN/Creatinine Ratio 22.1 H (6-22) Glucose 88 (80-110) mg/dL Calcium 8.7 (8.4-10.2) mg/dL Magnesium 2.0 (1.6-2.3) mg/dL Total Bilirubin 1.4 H (0.2-1.3) mg/dL AST 33 (17-59) IU/L ALT 29 (<50) IU/L Alkaline Phosphatase 91 (38-126) U/L Total Creatine Kinase 65 (55-170) U/L Troponin I < 0.012 (0.01-0.034) ng/mL Total Protein 7.4 (6.3-8.2) g/dL Albumin 4.1 (3.5-5.0) g/dL Globulin 3.3 (1.7-4.1) g/dL Albumin/Globulin Ratio 1.2 (1.0-2.8) Lipase 336 H (23-300) U/L Urine Dip Bedside Urine Glucose Negative Bedside Urine Bilirubin - Negative Bedside Urine Ketone - Negative Urine Specific [place] 1.020 Bedside Urine Occult Blood - Negative Bedside Urine pH 6.0 Bedside Urine Protein - Negative Bedside Urine Urobilinogen - Negative Bedside Urine Nitrite - Negative Bedside Urine Leukocytes - Negative Esterase <Nahomi Allen MD - Last Filed: 01/20/24 18:43> Differential Diagnosis Differential diagnosis: Likely fracture of rib, pneumothorax and stable angina Lab Data Labs: Lab Results 01/19/24 Range/Units 14:11 WBC 7.5 (4.5-11.0) X10^3/uL RBC 4.74 (4.5-5.9) X10^6/uL Hgb 14.8 (13.5-17.5) g/dL Hct 44.1 (41-53) % MCV 93.2 (80-100) fL MCH 31.3 (26-34) PG MCHC 33.6 (30-36) % RDW 14.1 (11.6-14.8) % Plt Count 285 (150-400) X10^3/uL Neut % (Auto) 74.8 (50-75) % Lymph % (Auto) 13.4 L (25-40) % [place] % (Auto) 8.9 (3-14) % Eos % (Auto) 2.4 (2-4) % Baso % (Auto) 0.5 (0-2) % Neut # (Auto) 5600 (2059-6713) /uL Lymph # (Auto) 1000 L (4959-0785) /uL [place] # (Auto) 700 (0-900) /uL Eos # (Auto) 200 (0-450) /uL Baso # (Auto) 0 (0-100) /uL PT 26.6 H (9.4-12.5) SECONDS INR 2.3 H (0.9-1.3) APTT 49 H (25.1-36.5) SECONDS Sodium 138 (137-145) mmol/L Potassium 4.1 (3.4-5.1) mmol/L Chloride 106 (98-107) mmol/L Carbon Dioxide 27 (22-32) mmol/L BUN 23 H (9-20) mg/dL Creatinine 1.04 (0.66-1.25) mg/dL Estimated GFR > 60 (>60) mL/min BUN/Creatinine Ratio 22.1 H (6-22) Glucose 88 (80-110) mg/dL Calcium 8.7 (8.4-10.2) mg/dL Magnesium 2.0 (1.6-2.3) mg/dL Total Bilirubin 1.4 H (0.2-1.3) mg/dL AST 33 (17-59) IU/L ALT 29 (<50) IU/L Alkaline Phosphatase 91 (38-126) U/L Total Creatine Kinase 65 (55-170) U/L Troponin I < 0.012 (0.01-0.034) ng/mL Total Protein 7.4 (6.3-8.2) g/dL Albumin 4.1 (3.5-5.0) g/dL Globulin 3.3 (1.7-4.1) g/dL Albumin/Globulin Ratio 1.2 (1.0-2.8) Lipase 336 H (23-300) U/L Urine Dip Bedside Urine Glucose Negative Bedside Urine Bilirubin - Negative Bedside Urine Ketone - Negative Urine Specific [place] 1.020 Bedside Urine Occult Blood - Negative Bedside Urine pH 6.0 Bedside Urine Protein - Negative Bedside Urine Urobilinogen - Negative Bedside Urine Nitrite - Negative Bedside Urine Leukocytes - Negative Esterase Imaging Data CT scan - head: Radiologist's Impression: PROCEDURE: CT HEAD/BRAIN WO CON INDICATIONS: vertigo, anticoagulated TECHNIQUE: Noncontrast 4.5 mm thick angled axial sections acquired from the foramen magnum to the vertex, with coronal and sagittal reformats. For radiation dose reduction, the following was used: automated exposure control, adjustment of mA and/or kV according to patient size. COMPARISON: [facility], , MR HEAD/BRAIN WO CON, 11/11/2023, 13:11. [facility], CT, CT HEAD/BRAIN WO CON, 11/11/2023, 11:23. FINDINGS: Image quality: Diagnostic CSF spaces: Basal cisterns are patent. Lateral ventricles are symmetric. Volume: Vascular calcifications. Periventricular white matter disease is commonly seen with chronic microangiopathy. Volume loss is present. These findings are moderate. Ventricular dilation is slightly out of proportion to the degree of volume loss. Brain: No intracranial hemorrhage. Duenas-white differentiation is grossly maintained. Craniofacial structures: Opacification of a left air cell. IMPRESSION: No acute intracranial abnormality. If there is high concern for parenchymal pathology, consider further evaluation with MRI. Dictated by: Derrell Angelo M.D. on 01/19/2024 at 18:24 Approved by: Derrell Angelo M.D. on 01/19/2024 at 18:26 PROCEDURE: MR HEAD/BRAIN WO CON INDICATIONS: DIZZINESS, OFF BALANCE X 1 YR TECHNIQUE: Non-contrast axial T1 spin echo, axial T2 fast spin echo, sagittal and axial FLAIR, coronal T2 fast spin echo, axial gradient echo, axial diffusion and ADC through the brain. COMPARISON: [facility], , MR HEAD/BRAIN WO CON, 11/11/2023, 13:11. FINDINGS: Image quality: Excellent. CSF spaces: Ventricles appear symmetric in size and shape. Basal cisterns are patent. No extra-axial fluid collections. Brain: No intracranial bleeds or mass effects. There is cerebral volume loss for age. There are periventricular and deep white matter chronic small vessel ischemic changes. Brainstem appears normal. Diffusion-weighted images show no acute infarct. No chronic ischemic insults. Normal intravascular flow voids are present. Skull and face: Calvarial bone marrow is normal in signal. Orbits are normal. Sinuses: Sinuses and mastoids are clear. IMPRESSION: 1. No acute infarction. No gross acute intracranial bleed or midline shift. 2. Age related volume loss and moderate white matter chronic small vessel ischemic changes. Dictated by: Marco Antonio Gross M.D. on 01/19/2024 at 21:37 Approved by: Marco Antonio Gross M.D. on 01/19/2024 at 21:43 MDM Narrative Medical decision making narrative: Well-appearing patient with intermittent symptoms for 1 year. Presenting today because he is extremely frustrated with his symptoms and is hoping that a repeat evaluation may shed light on why he continues to feel this way. On my evaluation he was neurologically intact, patient states that symptoms start after being up and about for several minutes. Reviewed patient records, he has had several CT scans, but no MRI since symptoms have been reported to start. I spoke with MRI staff, who can take the patient this evening for a scan. Laboratory work is reviewed, no acute abnormalities. Noncontrast brain CT normal. Brain MRI does not show any acute or chronic infarcts, only age-related volume loss with chronic small vessel changes. Patient advised of all lab and imaging findings. I highly recommended that patient follow up with physical therapy as this may help him to cope better with his symptoms. Encouraged PCP follow up. Discharge Plan Departure Patient Disposition: Home Clinical Impression: Dizziness Instructions: DI for Dizziness-Nonvertigo Activity Restrictions/Additional Instructions: Your laboratory work, CT imaging, an MRI today did not have an explanation for your dizziness. I recommend talking to your primary care doctor about potentially talking to physical or occupational therapy for your dizziness. Make sure to drink plenty of fluids. Prescriptions: No Action multivitamin [Multiple Vitamins] 1 EACH tablet 1 tab PO DAILY Qty: 0 cholecalciferol (vitamin D3) [Vitamin D3] 2,000 UNIT tablet 2,000 unit PO DAILY Qty: 0 finasteride 5 mg tablet 5 mg PO Q OTHER DAY Qty: 45 3RF warfarin 5 mg tablet See Rx Instructions .ROUTE .COMPLEX Qty: 108 3RF Dose Instruction: Take 1/2 tablet daily except on and Mon take 1 or as directed by doctor ; Rx Instructions: Take 5mg Monday and Monday and 2.5mg all other days, or as directed. metoprolol succinate 25 mg tablet extended release 24 hr 25 mg PO .qhs Qty: 90 1RF metoprolol succinate 50 mg tablet extended release 24 hr 50 mg PO DAILY Qty: 90 1RF tamsulosin 0.4 mg capsule 0.4 mg PO BID Qty: 180 3RF Rx Instructions: 30 minutes following the same meal each day atorvastatin 10 mg tablet 10 mg PO BEDTIME melatonin 10 mg tablet 10 mg PO BEDTIME PRN Iron High Potency 27 mg tablet 27 mg PO DAILY Patient Comments: Iron High Potency 240mg (27mg iron) Ocuvite 30unit 5mg 150mg 1 cap PO DAILY Referrals: Alejandro Pinto DO [Primary Care Provider] - Stand Alone Forms: Patient Portal/API ED Sign-out <Hemant Clement MD - Last Filed: 02/10/24 14:47> Cosign ED Attending Yvrose Attestation: I was immediately available in the department for consultation. Documentation has been reviewed. I agree with assessment and plan.
--- NOTE | 2024-01-19 17:42 | DI.CT.S_ITS ---
PROCEDURE: CT HEAD/BRAIN WO CON INDICATIONS: vertigo, anticoagulated TECHNIQUE: Noncontrast 4.5 mm thick angled axial sections acquired from the foramen magnum to the vertex, with coronal and sagittal reformats. For radiation dose reduction, the following was used: automated exposure control, adjustment of mA and/or kV according to patient size. COMPARISON: [facility], MR, MR HEAD/BRAIN WO CON, 11/11/2023, 13:11. [facility], CT, CT HEAD/BRAIN WO CON, 11/11/2023, 11:23. FINDINGS: Image quality: Diagnostic CSF spaces: Basal cisterns are patent. Lateral ventricles are symmetric. Volume: Vascular calcifications. Periventricular white matter disease is commonly seen with chronic microangiopathy. Volume loss is present. These findings are moderate. Ventricular dilation is slightly out of proportion to the degree of volume loss. Brain: No intracranial hemorrhage. Duenas-white differentiation is grossly maintained. Craniofacial structures: Opacification of a left air cell. IMPRESSION: No acute intracranial abnormality. If there is high concern for parenchymal pathology, consider further evaluation with MRI. Dictated by: Derrell Angelo M.D. on 01/19/2024 at 18:24 Approved by: Derrell Angelo M.D. on 01/19/2024 at 18:26
--- NOTE | 2024-01-19 18:46 | DI.MRI.S_ITS ---
PROCEDURE: MR HEAD/BRAIN WO CON INDICATIONS: DIZZINESS, OFF BALANCE X 1 YR TECHNIQUE: Non-contrast axial T1 spin echo, axial T2 fast spin echo, sagittal and axial FLAIR, coronal T2 fast spin echo, axial gradient echo, axial diffusion and ADC through the brain. COMPARISON: [facility], MR, MR HEAD/BRAIN WO CON, 11/11/2023, 13:11. FINDINGS: Image quality: Excellent. CSF spaces: Ventricles appear symmetric in size and shape. Basal cisterns are patent. No extra-axial fluid collections. Brain: No intracranial bleeds or mass effects. There is cerebral volume loss for age. There are periventricular and deep white matter chronic small vessel ischemic changes. Brainstem appears normal. Diffusion-weighted images show no acute infarct. No chronic ischemic insults. Normal intravascular flow voids are present. Skull and face: Calvarial bone marrow is normal in signal. Orbits are normal. Sinuses: Sinuses and mastoids are clear. IMPRESSION: 1. No acute infarction. No gross acute intracranial bleed or midline shift. 2. Age related volume loss and moderate white matter chronic small vessel ischemic changes. Dictated by: Marco Antonio Gross M.D. on 01/19/2024 at 21:37 Approved by: Marco Antonio Gross M.D. on 01/19/2024 at 21:43
== END 2024-01-19 22:07 | disposition home or self-care (01) ==
PROVIDERS: Emergency Medicine; Emergency Provider Emergency Medicine; Family Provider Family Medicine; PCP Family Medicine
DX: R42 Dizziness and giddiness (principal); R07.9 Chest pain, unspecified; Z79.01 Long term (current) use of anticoagulants
CPT/HCPCS: 36415; 70450; 70551; 71045; 80053; 81003; 82550; 83690; 83735; 84484; 85025; 85610; 85730; 93005; 93010; 99284

== ENCOUNTER → 2024-02-08 11:43 | Outpatient (CLI) | payer MEDICARE, OTHER, SELFPAY ==
[2023-03-15 10:23] VITALS: BMI 23.5
[2024-02-09 00:23] LABS: Digoxin < 0.4 ng/mL (0.8-2.0)
== END ==
PROVIDERS: Family Provider Family Medicine; PCP Family Medicine; Referring Provider Internal Medicine Cardiovascular Disease; Visit Provider Internal Medicine Cardiovascular Disease
DX: I35.0 Nonrheumatic aortic (valve) stenosis (principal); I48.21 Permanent atrial fibrillation
CPT/HCPCS: 36415; 80162

== ENCOUNTER 2024-02-18 04:08 | Emergency (ER) | payer MEDICARE, OTHER, SELFPAY ==
[2023-03-15 10:23] VITALS: BMI 23.5
[2024-02-18] VITALS (9 sets, daily range): BP systolic 132–158; BP diastolic 67–106; PULSE 83–97; RESP 16–18; TEMP 36.4–36.8; O2SAT 96–98; BMI 23.5
--- NOTE | 2024-02-18 04:20 | ED_ITS ---
HPI - General Adult General Chief complaint: Neuro Symptoms/Deficit Stated complaint: Dbl Vision, Light headed Time Seen by Provider: 02/18/24 04:10 History of Present Illness HPI narrative: 83-year-old male presents for evaluation of lightheadedness and double vision. Patient reports that his double vision is like ?letters are spaced out wider than they should be?. Symptoms have been ongoing for greater than 1 year, but patient states that he thinks his symptoms have gotten a little worse in the last 10 hours. Patient presented because he could not sleep because he states he was worried about what could be going on Patient has been evaluated numerous times in the emergency department for similar complaint. I saw this patient 1 month previously where he had normal labs and even underwent MRI that was normal. Patient has seen Neurology, ENT, Cardiology, primary care for this complaint. Per PCP note dated 3 days prior patient is poorly compliant with the recommendations made by specialists. Related Data Home Medications Medication Instructions Recorded Confirmed multivitamin (Multiple Vitamins 1 tab PO DAILY ##0 03/06/13 01/09/24 tablet) cholecalciferol (vitamin D3) 50 2,000 unit PO DAILY #0 tabs 08/03/16 01/09/24 mcg (2,000 unit) tablet (Vitamin D3) Iron High Potency 27 mg PO DAILY 04/09/19 01/09/24 Ocuvite 30unit 5mg 150mg 1 cap PO DAILY 04/09/19 01/09/24 atorvastatin 10 mg tablet 10 mg PO BEDTIME 01/25/23 01/09/24 melatonin 10 mg tablet 10 mg PO BEDTIME PRN 01/25/23 01/09/24 digoxin 125 mcg (0.125 mg) tablet 125 mcg PO DAILY 02/15/24 metoprolol succinate 25 mg 25 mg PO .qhs 02/15/24 tablet,extended release 24 hr Previous Rx's Medication Instructions Recorded finasteride 5 mg tablet 5 mg PO Q OTHER DAY #45 tabs 01/31/24 warfarin 5 mg tablet See Rx Instructions .Route 01/31/24 .COMPLEX #108 tabs tamsulosin 0.4 mg capsule 0.4 mg PO BID #180 caps 02/02/24 Allergies Allergy/AdvReac Type Severity Reaction Status Date / Time No Known Drug Allergies Allergy Verified 02/15/24 13:02 Review of Systems Review of Systems Narrative: See HPI Patient History Medical History Orthostatic hypotension Blurry vision, bilateral Insomnia COVID-19 virus infection Elevated random blood glucose level Aortic stenosis, severe Anticoagulated on warfarin Physician orders for life-sustaining treatment (POLST) form indicates patient wish for [id number] status Benign prostatic hyperplasia with urinary obstruction Fatigue Erectile dysfunction History of elevated PSA Balance problem Left arm weakness Vitamin D deficiency Pelvic somatic dysfunction Segmental and somatic dysfunction of sacral region Segmental and somatic dysfunction of lumbar region Chronic bilateral low back pain without sciatica Somatic dysfunction of both lower extremities Foot stiffness Segmental and somatic dysfunction of thoracic region Segmental and somatic dysfunction of rib cage Cervical somatic dysfunction Cranial somatic dysfunction Diplopia Chronic atrial fibrillation (01/02/18) Essential hypertension (02/16/16) 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) Incomplete emptying of bladder (02/16/16) Atrial fibrillation with rapid ventricular response Surgical History Hx of cholecystectomy Status post cholecystectomy Family History Mother CVA (cerebral vascular accident) Father Diabetes mellitus Brother Renal failure Social History marital status: number of children: 1 household members: none occupational status: previously employed Previous occupational history: [employer] Smoking Status: Former smoker alcohol intake: former caffeine: Yes Smoking Status: Former smoker alcohol intake frequency: 0-2 drinks per day Substance Use Type: does not use Exam Narrative Exam Narrative: Const: Awake, alert, no acute distress, nontoxic appearing Cardiac: regular rate, regular rhythm RESP: unlabored, clear bilaterally, no wheezing GI: Soft, nontender, nondistended, no rebound, no guarding MSK: Atraumatic, full range of motion, pulses equal Skin: Warm, Dry, intact, no rashes Neuro: AO x3, CN II-XII grossly intact, moves all extremities Initial Vital Signs Initial Vital Signs: Vital Signs Pulse Rate 90 02/18/24 04:14 Pulse Oximetry 96 02/18/24 04:14 Oxygen Delivery Method Room Air 02/18/24 04:14 Course Orders Ordered: ED Orders 02/18/24 04:21 DIG [Digoxin] Stat 02/18/24 04:22 Chest [XR chest 1V] Stat CBC Auto Diff [Complete Blood Count AUTO DIFF] Stat CMP [Comprehensive Metabolic Panel] Stat MAG [Magnesium] Stat Troponin & CK Cardiac Panel Stat EKG-12 Lead Stat Discontinued Medications Sodium Chloride (Normal Saline 0.9%) 1,000 mls @ 1,000 mls/hr IV BOLUS ONE Stop: 02/18/24 05:20 Last Admin: 02/18/24 04:35 Dose: 1,000 mls/hr Vital Signs Vital signs: Vital Signs - 8 hr 02/18/24 04:14 02/18/24 04:15 02/18/24 04:15 Temperature Pulse Rate 90 97 H Respiratory Rate Blood Pressure 154/95 H Pulse Oximetry 96 97 Oxygen Delivery Method Room Air Room Air 02/18/24 04:17 02/18/24 04:17 02/18/24 04:23 Temperature 98.2 F Pulse Rate 90 96 H Respiratory Rate 18 Blood Pressure 132/67 158/84 H Pulse Oximetry 97 98 Oxygen Delivery Method Room Air Room Air 02/18/24 04:30 02/18/24 04:30 02/18/24 04:47 Temperature Pulse Rate 88 85 Respiratory Rate Blood Pressure 141/74 H Pulse Oximetry 97 97 Oxygen Delivery Method Room Air 02/18/24 04:47 02/18/24 05:00 02/18/24 05:00 Temperature 97.6 F Pulse Rate 83 Respiratory Rate 18 16 Blood Pressure 149/71 H 155/75 H Pulse Oximetry 97 Oxygen Delivery Method Medical Decision Making Differential Diagnosis Differential Diagnosis: Orthostatic hypotension, anemia, hyponatremia Lab Data 02/18/24 04:25 02/18/24 04:25 Labs: Lab Results 02/18/24 Range/Units 04:25 WBC 7.1 (4.5-11.0) X10^3/uL RBC 4.58 (4.5-5.9) X10^6/uL Hgb 14.1 (13.5-17.5) g/dL Hct 42.1 (41-53) % MCV 91.9 (80-100) fL MCH 30.8 (26-34) PG MCHC 33.5 (30-36) % RDW 14.0 (11.6-14.8) % Plt Count 263 (150-400) X10^3/uL Neut % (Auto) 69.6 (50-75) % Lymph % (Auto) 17.4 L (25-40) % [place] % (Auto) 9.6 (3-14) % Eos % (Auto) 2.8 (2-4) % Baso % (Auto) 0.6 (0-2) % Neut # (Auto) 4900 (3620-7933) /uL Lymph # (Auto) 1200 (0458-3701) /uL [place] # (Auto) 700 (0-900) /uL Eos # (Auto) 200 (0-450) /uL Baso # (Auto) 0 (0-100) /uL Sodium 137 (137-145) mmol/L Potassium 3.9 (3.4-5.1) mmol/L Chloride 106 (98-107) mmol/L Carbon Dioxide 27 (22-32) mmol/L BUN 20 (9-20) mg/dL Creatinine 1.11 (0.66-1.25) mg/dL Estimated GFR > 60 (>60) mL/min BUN/Creatinine Ratio 18.0 (6-22) Glucose 120 H (80-110) mg/dL Calcium 8.5 (8.4-10.2) mg/dL Magnesium 2.1 (1.6-2.3) mg/dL Total Bilirubin 1.2 (0.2-1.3) mg/dL AST 24 (17-59) IU/L ALT 24 (<50) IU/L Alkaline Phosphatase 82 (38-126) U/L Total Creatine Kinase 54 L (55-170) U/L Troponin I < 0.012 (0.01-0.034) ng/mL Total Protein 6.3 (6.3-8.2) g/dL Albumin 3.6 (3.5-5.0) g/dL Globulin 2.7 (1.7-4.1) g/dL Albumin/Globulin Ratio 1.3 (1.0-2.8) MDM Narrative Medical decision making narrative: Patient presenting for lightheadedness and double vision. Symptoms have been ongoing for at least 1 year, maybe even longer, subjective slight worsening in the last 10 hours. Patient ambulatory through the emergency department without difficulty, neurologically intact. Labs and MRI from 1 month prior reviewed. I discussed in detail with the patient that I was unlikely to find the cause for his longstanding lightheadedness and double vision in the emergency department, especially with numerous previous negative workups and normal recent MRI. Offered repeat laboratory work and chest x-ray for patient's complaints, which he agreed to. Laboratory work is essentially unchanged from baseline. Digoxin level just underside of therapeutic range. Patient counseled on lab and imaging findings, I do not have any new insight as to why his symptoms are persistent or why they may have worsened recently. Patient encouraged to continue following up with his specialists and primary care physician. Discharge Plan Departure Patient Disposition: Home Clinical Impression: Light-headed Instructions: DI for Dizziness-Nonvertigo Activity Restrictions/Additional Instructions: Your laboratory work and x-ray is unchanged. I do not have a cause for why you continue to experience symptoms. Prescriptions: No Action multivitamin [Multiple Vitamins] 1 EACH tablet 1 tab PO DAILY Qty: 0 cholecalciferol (vitamin D3) [Vitamin D3] 2,000 UNIT tablet 2,000 unit PO DAILY Qty: 0 finasteride 5 mg tablet 5 mg PO Q OTHER DAY Qty: 45 3RF warfarin 5 mg tablet See Rx Instructions .ROUTE .COMPLEX Qty: 108 3RF Dose Instruction: Take 1/2 tablet daily except on and Sat take 1 or as directed by doctor ; Rx Instructions: Take 5mg Monday and Monday and 2.5mg all other days, or as directed. tamsulosin 0.4 mg capsule 0.4 mg PO BID Qty: 180 3RF Rx Instructions: 30 minutes following the same meal each day digoxin 125 mcg (0.125 mg) tablet 125 mcg PO DAILY metoprolol succinate 25 mg tablet extended release 24 hr 25 mg PO .qhs atorvastatin 10 mg tablet 10 mg PO BEDTIME melatonin 10 mg tablet 10 mg PO BEDTIME PRN Iron High Potency 27 mg tablet 27 mg PO DAILY Patient Comments: Iron High Potency 240mg (27mg iron) Ocuvite 30unit 5mg 150mg 1 cap PO DAILY Referrals: Alejandro Pinto DO [Primary Care Provider] - Stand Alone Forms: Patient Portal/API
--- NOTE | 2024-02-18 04:22 | DI.RAD.S_ITS ---
PROCEDURE: XR CHEST 1V INDICATIONS: dyspnea TECHNIQUE: One view of the chest was acquired. COMPARISON: [facility], CR, XR CHEST 1V, 01/19/2024, 14:02. FINDINGS: Surgical changes and devices: None. Lungs and pleura: Hyperinflation and chronic interstitial changes present. Probable pleural plaquing left in calcified granulomas in the right all remain unchanged from the prior Mediastinum: Mediastinal contours appear normal. Heart size is normal. Atherosclerotic vascular calcification noted in the aortic arch. Bones and chest wall: No suspicious bony lesions. Overlying soft tissues appear unremarkable. IMPRESSION: No acute cardiopulmonary findings. Hyperinflation, chronic interstitial changes and probable calcified pleural plaquing Note: This final report is concordant with the preliminary after-hours interpretation provided by [facility] Approved by: Popeye Morris M.D. on 02/18/2024 at 9:19
[2024-02-18] MEDS: SODIUM CHLORIDE 0.9% 1,000 ML 1000 ML IV (04:35)
[2024-02-18 04:41] LABS: Add Manual Diff / Slide Review NO; Basophils Absolute Auto 0 /uL (0-100); Basophils Percent Auto 0.6 % (0-2); Eosinophils Absolute Auto 200 /uL (0-450); Eosinophils Percent Auto 2.8 % (2-4); Hematocrit 42.1 % (41-53); Hemoglobin 14.1 g/dL (13.5-17.5); Lymphocytes Absolute Auto 1200 /uL (1100-4500); Lymphocytes Percent Auto 17.4 % (25-40); Mean Corpuscular HGB Conc 33.5 % (30-36); Mean Corpuscular Hemoglobin 30.8 PG (26-34); Mean Corpuscular Volume 91.9 fL (80-100); Monocytes Absolute Auto 700 /uL (0-900); Monocytes Percent Auto 9.6 % (3-14); Neutrophils Absolute Auto 4900 /uL (1500-7000); Neutrophils Percent Auto 69.6 % (50-75); Platelet Count 263 X10^3/uL (150-400); Red Blood Cell Count 4.58 X10^6/uL (4.5-5.9); White Blood Cell Count 7.1 X10^3/uL (4.5-11.0)
[2024-02-18 04:59] LABS: Alanine Aminotransferase 24 IU/L (<50); Albumin 3.6 g/dL (3.5-5.0); Albumin Globulin Ratio 1.3 (1.0-2.8); Alkaline Phosphatase 82 U/L (38-126); Aspartate Aminotransferase 24 IU/L (17-59); Bilirubin Total 1.2 mg/dL (0.2-1.3); Blood Urea Nitrogen 20 mg/dL (9-20); Calcium 8.5 mg/dL (8.4-10.2); Carbon Dioxide 27 mmol/L (22-32); Chloride 106 mmol/L (98-107); Creatine Kinase 54 U/L (55-170); Estimated Glomerular Filt Rate > 60 mL/min (>60); Globulin 2.7 g/dL (1.7-4.1); Glucose 120 mg/dL (80-110); HEMOLYSIS < 15 (0-50); Magnesium 2.1 mg/dL (1.6-2.3); Potassium 3.9 mmol/L (3.4-5.1); Sodium 137 mmol/L (137-145); Total Protein 6.3 g/dL (6.3-8.2)
[2024-02-18 05:11] LABS: Troponin I < 0.012 ng/mL (0.01-0.034)
[2024-02-18 05:30] LABS: Digoxin 0.7 ng/mL (0.8-2.0)
== END 2024-02-18 05:43 | disposition home or self-care (01) ==
PROVIDERS: Emergency Provider Emergency Medicine; Family Provider Family Medicine; PCP Family Medicine
DX: R42 Dizziness and giddiness (principal); H53.2 Diplopia
CPT/HCPCS: 36415; 71045; 80053; 80162; 82550; 83735; 84484; 85025; 93005; 99284

== ENCOUNTER 2024-03-01 12:37 | Emergency (ER) | payer MEDICARE, OTHER, SELFPAY ==
[2023-03-15 10:23] VITALS: BMI 23.5
[2024-03-01] VITALS (13 sets, daily range): BP systolic 160–198; BP diastolic 73–89; PULSE 70–85; RESP 12–22; TEMP 36.3; O2SAT 95–99; BMI 23.1
--- NOTE | 2024-03-01 12:45 | DI.RAD.S_ITS ---
PROCEDURE: XR CHEST 1V INDICATIONS: chest pain TECHNIQUE: One view of the chest was acquired. COMPARISON: [facility], CR, XR CHEST 1V, 11/14/2023, 1:40. [facility], CR, XR CHEST 1V, 02/18/2024, 4:24. FINDINGS: Surgical changes and devices: None. Lungs and pleura: Pleural plaques with chronic interstitial change. Findings suggest probable chronic interstitial pulmonary fibrosis. Mediastinum: Mediastinal contours appear normal. Cardiomegaly. Bones and chest wall: No suspicious bony lesions. Overlying soft tissues appear unremarkable. IMPRESSION: Cardiomegaly, pleural plaques, probable chronic interstitial pulmonary fibrosis, potentially related to asbestos. No definite acute infiltrates. Dictated by: Benjamín Ding M.D. on 03/01/2024 at 14:14 Approved by: Benjamín Ding M.D. on 03/01/2024 at 14:15
[2024-03-01 13:07] LABS: Add Manual Diff / Slide Review NO; Basophils Absolute Auto 100 /uL (0-100); Basophils Percent Auto 0.7 % (0-2); Eosinophils Absolute Auto 200 /uL (0-450); Eosinophils Percent Auto 2.4 % (2-4); Hematocrit 43.1 % (41-53); Hemoglobin 14.5 g/dL (13.5-17.5); Lymphocytes Absolute Auto 1000 /uL (1100-4500); Lymphocytes Percent Auto 13.5 % (25-40); Mean Corpuscular HGB Conc 33.6 % (30-36); Mean Corpuscular Volume 92.2 fL (80-100); Monocytes Absolute Auto 600 /uL (0-900); Monocytes Percent Auto 8.1 % (3-14); Neutrophils Absolute Auto 5500 /uL (1500-7000); Neutrophils Percent Auto 75.3 % (50-75); Platelet Count 289 X10^3/uL (150-400); Red Blood Cell Count 4.68 X10^6/uL (4.5-5.9); Red Cell Distribution Width 13.9 % (11.6-14.8); White Blood Cell Count 7.3 X10^3/uL (4.5-11.0)
[2024-03-01 13:15] LABS: INR 2.8 (0.9-1.3)
[2024-03-01 13:17] LABS: PTT Partial Thromboplastin Tim 53 SECONDS (25.1-36.5)
[2024-03-01 13:21] LABS: Alanine Aminotransferase 24 IU/L (<50); Albumin Globulin Ratio 1.4 (1.0-2.8); Alkaline Phosphatase 85 U/L (38-126); Aspartate Aminotransferase 26 IU/L (17-59); BUN Creatinine Ratio 17.6 (6-22); Bilirubin Total 1.7 mg/dL (0.2-1.3); Blood Urea Nitrogen 18 mg/dL (9-20); Calcium 8.5 mg/dL (8.4-10.2); Carbon Dioxide 29 mmol/L (22-32); Chloride 105 mmol/L (98-107); Creatine Kinase 49 U/L (55-170); Estimated Glomerular Filt Rate > 60 mL/min (>60); Globulin 2.8 g/dL (1.7-4.1); Glucose 95 mg/dL (80-110); HEMOLYSIS < 15 (0-50); Lipase 293 U/L (23-300); Magnesium 2.3 mg/dL (1.6-2.3); Potassium 4.4 mmol/L (3.4-5.1); Sodium 135 mmol/L (137-145); Total Protein 6.8 g/dL (6.3-8.2)
[2024-03-01 13:32] LABS: Troponin I < 0.012 ng/mL (0.01-0.034)
--- NOTE | 2024-03-01 15:13 | PC.NURSE ---
Pt stated that he has been feeling dizzy for a couple days. Woke up this morning and started to have blurry double vision after he ate breakfast. Pt has hx of afib and takes warfarin. Denies SOB and cp. A&Ox4. VS WNL
[2024-03-01 15:33] LABS: Bacteria Urine Occasional (0-1); RBC Urine 0-1/HPF (0-5/HPF); Urine Volume 10mL (spun); WBC Urine 0-1/HPF (0-5/HPF)
[2024-03-01 15:34] LABS: Culture Indicated Urine Specimen Cultured; Squamous Epithelial Cell Urine None Seen (0-5/HPF)
--- NOTE | 2024-03-01 17:23 | PC.NURSE ---
Pt states that he is still having blurry double vision.
--- NOTE | 2024-03-01 18:18 | ED.GENADULT ---
HPI - General Adult General Chief complaint: Dizziness Stated complaint: lightheaded, double vision, tingling left arm Time Seen by Provider: 03/01/24 18:13 Source: patient Mode of arrival: Ambulatory History of Present Illness HPI narrative: 83-year-old male history of atrial fibrillation on warfarin, hypertension, dyslipidemia report of double vision that started 2 hours ago, feeling lightheaded for awhile left arm tingling. Review patient's chart from the 17 of February notes that symptoms have been going on for a year. Patient states it is gotten better. He describes it as a fuzzy a little bit double but not quite. He states no headaches, no chest pain or shortness of breath no nausea or vomiting, no numbness tingling or weakness in his extremities no issues with bowel movements or urination. He notes he has had longstanding lightheadedness particularly when he stands up. No syncope or falls. Patient is going to vestibular PT. He did recently have his metoprolol stopped and changed to digoxin. Drug allergies. No tobacco, alcohol or recreational drugs. Dr. Pinto his primary care Related Data Home Medications Medication Instructions Recorded Confirmed multivitamin (Multiple Vitamins 1 tab PO DAILY ##0 03/06/13 01/09/24 tablet) cholecalciferol (vitamin D3) 50 2,000 unit PO DAILY #0 tabs 08/03/16 01/09/24 mcg (2,000 unit) tablet (Vitamin D3) Iron High Potency 27 mg PO DAILY 04/09/19 01/09/24 Ocuvite 30unit 5mg 150mg 1 cap PO DAILY 04/09/19 01/09/24 atorvastatin 10 mg tablet 10 mg PO BEDTIME 01/25/23 01/09/24 melatonin 10 mg tablet 10 mg PO BEDTIME PRN 01/25/23 01/09/24 digoxin 125 mcg (0.125 mg) tablet 125 mcg PO DAILY 02/15/24 metoprolol succinate 25 mg 25 mg PO .qhs 02/15/24 tablet,extended release 24 hr Previous Rx's Medication Instructions Recorded finasteride 5 mg tablet 5 mg PO Q OTHER DAY #45 tabs 01/31/24 warfarin 5 mg tablet See Rx Instructions .Route 01/31/24 .COMPLEX #108 tabs tamsulosin 0.4 mg capsule 0.4 mg PO BID #180 caps 02/02/24 Allergies Allergy/AdvReac Type Severity Reaction Status Date / Time No Known Drug Allergies Allergy Verified 02/15/24 13:02 Review of Systems Review of Systems ROS Unobtainable: All systems reviewed & are unremarkable except as noted in HPI and below Patient History Medical History Orthostatic hypotension Blurry vision, bilateral Insomnia COVID-19 virus infection Elevated random blood glucose level Aortic stenosis, severe Anticoagulated on warfarin Physician orders for life-sustaining treatment (POLST) form indicates patient wish for je-[id number] status Benign prostatic hyperplasia with urinary obstruction Fatigue Erectile dysfunction History of elevated PSA Balance problem Left arm weakness Vitamin D deficiency Pelvic somatic dysfunction Segmental and somatic dysfunction of sacral region Segmental and somatic dysfunction of lumbar region Chronic bilateral low back pain without sciatica Somatic dysfunction of both lower extremities Foot stiffness Segmental and somatic dysfunction of thoracic region Segmental and somatic dysfunction of rib cage Cervical somatic dysfunction Cranial somatic dysfunction Diplopia Chronic atrial fibrillation (01/02/18) Essential hypertension (02/16/16) 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) Incomplete emptying of bladder (02/16/16) Atrial fibrillation with rapid ventricular response Surgical History Hx of cholecystectomy Status post cholecystectomy Family History Mother CVA (cerebral vascular accident) Father Diabetes mellitus Brother Renal failure Social History marital status: number of children: 1 household members: none occupational status: previously employed Previous occupational history: [employer] Smoking Status: Former smoker alcohol intake: former caffeine: Yes Smoking Status: Former smoker alcohol intake frequency: 0-2 drinks per day Substance Use Type: does not use Exam Narrative Exam Narrative: GEN: well nourished, well appearing female, alert and oriented x 3, patient appears to be in quite yet mild distress. HEENT: Atraumatic, pupils are equal round reactive to light, extraocular movements are intact, nares are clear, TMs are clear with no fluid, there is no conjunctival pallor. Throat is clear without any exudates, erythema, tonsillar enlargement or uvular deviation, no facial droop. HEART: Regular rate and rhythm without murmur, clicks, rubs. pulses are equal in upper and lower extremities LUNGS:Lungs clear to auscultation, no wheezes, rales, crackles, chest moves symmetrically ABD:bowel sounds normal, soft, non-tender, no guarding, rebound, rigidity, no masses noted, no hepatosplenomegaly :No CVA tenderness MSCL: Non-tender, no muscle atrophy, muscles strength 5/5 upper and lower extremities, full range of motion, normal gait NEURO:CN 2-12 intact, sensation normal. finger nose finger test normal, heel gray test normal, romberg normal Initial Vital Signs Initial Vital Signs: Vital Signs Temperature 97.3 F L 03/01/24 12:39 Pulse Rate 75 03/01/24 12:39 Respiratory Rate 18 03/01/24 12:39 Blood Pressure 174/81 H 03/01/24 12:39 Pulse Oximetry 97 03/01/24 12:39 Oxygen Delivery Method Room Air 03/01/24 12:39 Scores NIH Stroke Scale Level of Conciousness: Alert, keenly responsive Ask month/age: Answers both questions correctly. Open/close eyes, close hand: Performs both tasks correctly Best gaze horizontal: Normal Visual tang: No visual loss Facial palsy: Normal symetrical movement Left arm drift: No drift for full 10 sec Right arm drift: No drift for full 10 sec Left leg drift: No drift for full 5 sec Right leg drift: No drift for full 5 sec Limb ataxia: Absent Sensory on face/arms/legs: Normal, no sensory loss Best language: No aphasia, normal Dysarthria: Normal Extinction or inattention: No abnormality Total NIH Stroke scale score: 0 Course Orders Ordered: ED Orders 03/01/24 18:31 CT head/brain wo con Stat Vital Signs Vital signs: Vital Signs - 8 hr 03/01/24 17:30 03/01/24 17:31 03/01/24 17:31 Pulse Rate 74 75 Respiratory Rate 21 20 Blood Pressure 160/87 H Pulse Oximetry 99 99 Oxygen Delivery Method 03/01/24 18:00 03/01/24 18:00 03/01/24 18:30 Pulse Rate 75 77 Respiratory Rate 22 21 Blood Pressure 170/81 H Pulse Oximetry 97 98 Oxygen Delivery Method 03/01/24 18:30 03/01/24 18:48 03/01/24 18:48 Pulse Rate 78 Respiratory Rate 12 Blood Pressure 177/82 H 188/89 H Pulse Oximetry 97 Oxygen Delivery Method 03/01/24 19:32 03/01/24 19:33 Pulse Rate 85 Respiratory Rate 16 Blood Pressure 169/73 H Pulse Oximetry 95 Oxygen Delivery Method Room Air Room Air Medical Decision Making Lab Data 03/01/24 12:55 03/01/24 12:55 Labs: Lab Results 03/01/24 03/01/24 Range/Units 12:55 14:05 WBC 7.3 (4.5-11.0) X10^3/uL RBC 4.68 (4.5-5.9) X10^6/uL Hgb 14.5 (13.5-17.5) g/dL Hct 43.1 (41-53) % MCV 92.2 (80-100) fL MCH 31.0 (26-34) PG MCHC 33.6 (30-36) % RDW 13.9 (11.6-14.8) % Plt Count 289 (150-400) X10^3/uL Neut % (Auto) 75.3 H (50-75) % Lymph % (Auto) 13.5 L (25-40) % [place] % (Auto) 8.1 (3-14) % Eos % (Auto) 2.4 (2-4) % Baso % (Auto) 0.7 (0-2) % Neut # (Auto) 5500 (0663-9122) /uL Lymph # (Auto) 1000 L (9078-2875) /uL [place] # (Auto) 600 (0-900) /uL Eos # (Auto) 200 (0-450) /uL Baso # (Auto) 100 (0-100) /uL PT 33.0 H (9.4-12.5) SECONDS INR 2.8 H (0.9-1.3) APTT 53 H (25.1-36.5) SECONDS Sodium 135 L (137-145) mmol/L Potassium 4.4 (3.4-5.1) mmol/L Chloride 105 (98-107) mmol/L Carbon Dioxide 29 (22-32) mmol/L BUN 18 (9-20) mg/dL Creatinine 1.02 (0.66-1.25) mg/dL Estimated GFR > 60 (>60) mL/min BUN/Creatinine Ratio 17.6 (6-22) Glucose 95 (80-110) mg/dL Calcium 8.5 (8.4-10.2) mg/dL Magnesium 2.3 (1.6-2.3) mg/dL Total Bilirubin 1.7 H (0.2-1.3) mg/dL AST 26 (17-59) IU/L ALT 24 (<50) IU/L Alkaline Phosphatase 85 (38-126) U/L Total Creatine Kinase 49 L (55-170) U/L Troponin I < 0.012 (0.01-0.034) ng/mL Total Protein 6.8 (6.3-8.2) g/dL Albumin 4.0 (3.5-5.0) g/dL Globulin 2.8 (1.7-4.1) g/dL Albumin/Globulin Ratio 1.4 (1.0-2.8) Lipase 293 (23-300) U/L Urine RBC 0-1/hpf (0-5/HPF) Urine WBC 0-1/hpf (0-5/HPF) Ur Squamous Epith Cells None seen (0-5/HPF) Urine Bacteria Occasional (0-1) (None) Ur Culture Indicated? Specimen cultured Vol Urine Centrifuged 10ml (spun) Urine Dip Bedside Urine Glucose Negative Bedside Urine Bilirubin - Negative Bedside Urine Ketone - Negative Urine Specific [place] 1.025 Bedside Urine Occult Blood - Negative Bedside Urine pH 6.0 Bedside Urine Protein - Negative Bedside Urine Urobilinogen - Negative Bedside Urine Nitrite - Negative Bedside Urine Leukocytes +/- 15 Esterase Point of care testing: Urine Dip Bedside Urine Glucose Negative Bedside Urine Bilirubin - Negative Bedside Urine Ketone - Negative Urine Specific [place] 1.025 Bedside Urine Occult Blood - Negative Bedside Urine pH 6.0 Bedside Urine Protein - Negative Bedside Urine Urobilinogen - Negative Bedside Urine Nitrite - Negative Bedside Urine Leukocytes +/- 15 Esterase Imaging Data Chest x-ray: Radiologist's Impression: Close Chest X-Ray (Signed) Benjamín Ding - 03/01/24 Chest X-Ray (Signed) Popeye Morris - 02/18/24 Brain MRI (Signed) Marco Antonio Gross - 01/19/[address] (Signed) Derrell Angelo - 01/19/24 Chest X-Ray (Signed) Linda Hester - 01/19/[address] (Signed) Nikole Trujillo - 12/13/23 Carotid Doppler Study (Signed) Renetta,Rafal - 12/13/23 Chest X-Ray (Signed) MaciKenton cruzyu - 11/21/23 Chest X-Ray (Signed) Andrea Louise - 11/14/23 Brain MRI (Signed) Petey,Derrell - 11/11/[address] (Signed) Petey,Derrell - 11/11/23 Chest X-Ray (Signed) Petey,Derrell - 11/11/23 Echocardiogram Ultrasound (Signed) Juanita,Bhrigu - 10/11/23 Chest X-Ray (Signed) Roschmann,Jaycob - 07/22/23 Echocardiogram Ultrasound (Signed) Juanita,Bhrigu - 06/05/23 Chest X-Ray (Signed) Roschmann,Jaycob - 05/21/23 Head/Neck CTA (Signed) Marco Antonio Gross - 03/14/23 Head/Neck CTA (Signed) Popeye Morris - 01/17/[address] (Signed) Eagle Ordonez - 01/17/23 Abdomen/Pelvis CT (Signed) Lucie Dao - 10/20/22 Scrotum Ultrasound (Signed) Maci,Kentonnatalya - 08/19/[address] (Signed) Bobby Nowak - 08/09/22 Chest X-Ray (Signed) Linda Hester - 08/09/22 Chest X-Ray (Signed) Roschmann,Jaycob - 08/06/22 Chest X-Ray (Signed) Fabio Olson - 07/12/[address] (Signed) Omar Morrisic - 07/02/22 Chest X-Ray (Signed) Petey,Derrell - 07/02/22 Brain MRI (Signed) Rafal Jackson - 06/29/22 Head/Neck CTA (Signed) Fabio Olson - 06/28/22 Chest X-Ray (Signed) Marco Antonio rGoss - 06/28/22 Telemetry Strips 06/28/[address] (Signed) Marco Antonio Gross - 06/25/22 Chest X-Ray (Signed) Jason Moore - 10/24/21 Echocardiogram Ultrasound (Signed) Juanita,Bhrigu - 10/14/21 Chest X-Ray (Signed) Ishan Osorio - 06/28/[address] (Signed) Ishan Osorio - 06/28/21 Chest X-Ray (Signed) Shahida Elliott - 06/10/21 Chest X-Ray (Signed) Shahida Elliott - 04/02/[address] (Signed) Rafal Jackson - 03/15/21 Chest X-Ray (Signed) GrossNathalyMarco Antonio - 03/15/21 Abdomen/Pelvis CT (Addendum) Linda Hester - 01/28/[address] (Signed) Shahida Elliott - 12/24/20 Echocardiogram Ultrasound (Signed) Carlos Grant - 10/14/[address] (Signed) Ishan Osorio - 10/05/20 Telemetry Strips 10/05/[address] (Signed) Rafal Jackson - 08/29/20 Chest X-Ray (Signed) Shahida Elliott - 08/07/20 Echocardiogram Ultrasound (Signed) Jennifer Bradley - 07/19/20 Brain MRI (Signed) Rafal Jackson - 07/18/20 Telemetry Strips 07/18/20 Head/Neck CTA (Signed) Rafal Jackson - 07/18/[address] (Signed) Rafal Jackson - 07/18/20 Head/Neck CTA (Signed) Efrem Forrester - 06/13/[address] (Signed) Efrem Forrester - 06/13/20 Chest X-Ray (Signed) Rafal Jackson - 06/13/20 Head/Neck CTA (Signed) Benjamín Ding - 04/11/[address] (Signed) Benjamín Ding - 04/11/20 Head/Neck CTA (Signed) Ishan Osorio - 02/23/[address] (Signed) Ishan Osorio - 02/23/[address] [address] XRay Report Signed Patient: Nestor Mercedes MR#: [id number] : 1940 Acct:[id number] Age/Sex: 83 / M Date of Service: 03/01/24 Loc: ED Accession Number: [id number] Procedure: XR chest 1V Ordering Provider: Cleopatra Wick D.O. PROCEDURE: XR CHEST 1V INDICATIONS: chest pain TECHNIQUE: One view of the chest was acquired. COMPARISON: [facility], CR, XR CHEST 1V, 11/14/2023, 1:40. [facility], CR, XR CHEST 1V, 02/18/2024, 4:24. FINDINGS: Surgical changes and devices: None. Lungs and pleura: Pleural plaques with chronic interstitial change. Findings suggest probable chronic interstitial pulmonary fibrosis. Mediastinum: Mediastinal contours appear normal. Cardiomegaly. Bones and chest wall: No suspicious bony lesions. Overlying soft tissues appear unremarkable. IMPRESSION: Cardiomegaly, pleural plaques, probable chronic interstitial pulmonary fibrosis, potentially related to asbestos. No definite acute infiltrates. Dictated by: Benjamín Ding M.D. on 03/01/2024 at 14:14 Approved by: Benjamín Ding M.D. on 03/01/2024 at 14:15 CT scan - head: Radiologist's Impression: [id number] [id number] CT Scan Report Signed Patient: Nestor Mercedes MR#: [id number] : 1940 Acct:[id number] Age/Sex: 83 / M Date of Service: 03/01/24 Loc: ED Accession Number: [id number] Procedure: CT head/brain wo con Ordering Provider: Nahomi Chavira D.O. PROCEDURE: CT HEAD/BRAIN WO CON INDICATIONS: vision change TECHNIQUE: Noncontrast 4.5 mm thick angled axial sections acquired from the foramen magnum to the vertex, with coronal and sagittal reformats. For radiation dose reduction, the following was used: automated exposure control, adjustment of mA and/or kV according to patient size. COMPARISON: [facility], CT, CT HEAD/BRAIN WO CON, 01/19/2024, 18:10. FINDINGS: Image quality: Diagnostic. CSF spaces: Basal cisterns are patent. No extra-axial fluid collections. Ventricles are enlarged as before. Brain: No midline shift. No intracranial masses or hemorrhage. No area of hypodensity in a large vascular distribution to suggest acute infarction. Periventricular hypodensity consistent with chronic microvascular ischemic change. Age-related parenchymal loss. Skull and face: Calvarium and visualized facial bones are intact, without suspicious lesions. Sinuses: Visualized sinuses and mastoids are clear. IMPRESSION: No acute intracranial pathology. No interval change seen. Dictated by: Lev Heart M.D. on 03/01/2024 at 18:58 Approved by: Lev Heart M.D. on 03/01/2024 at 19:02 ECG Data Attestation: I personally reviewed and interpreted this ECG as follows: Interpretation: Atrial fibrillation 68 QRS [address] changes. Patient has prior from 02/18/2024 which appears similar. MDM Narrative Medical decision making narrative: 83-year-old gentleman presents with complaint of vision change, describes stable vision or near double vision and states he had some coldness in both his arms earlier today. Patient otherwise has no acute neurologic changes he states his vision changes improved. He has prior visit that notes that he has had double vision for some time and has vestibular PT and place. His neurologic exam is normal. He is on warfarin he denies any falls or head injuries. No headaches. Labs show white count of 7.3 hemoglobin of 14 platelets 289 INR is 2.8 appropriate on warfarin, creatinine is 1.02 with a glucose of 95 BUN 18 sodium 135 potassium 4.4 with chloride 105 and CO2 of 29. Bilirubin is a little up at 1.7 otherwise normal LFTs negative troponin. Chest x-ray shows cardiomegaly, pleural plaques no definitive infiltrate. There discussion with patient he has a normal neuro exam no recent falls but is on warfarin he would like to pursue head CT this was obtained it shows no acute change. Patient with longstanding symptoms felt appropriate for discharge with no acute neurologic changes. Patient ambulating without issue. Discharge Plan Departure Patient Disposition: Home Clinical Impression: Dizziness Activity Restrictions/Additional Instructions: Follow up with your physician for recheck. Continue your home medications as prescribed. Please return for new or worsening symptoms, new numbness, weakness or difficulty with movement, balance or gait, severe headaches, new chest pain or shortness of breath or other new or concerning changes. Prescriptions: No Action multivitamin [Multiple Vitamins] 1 EACH tablet 1 tab PO DAILY Qty: 0 cholecalciferol (vitamin D3) [Vitamin D3] 2,000 UNIT tablet 2,000 unit PO DAILY Qty: 0 finasteride 5 mg tablet 5 mg PO Q OTHER DAY Qty: 45 3RF warfarin 5 mg tablet See Rx Instructions .ROUTE .COMPLEX Qty: 108 3RF Dose Instruction: Take 1/2 tablet daily except on and Mon take 1 or as directed by doctor ; Rx Instructions: Take 5mg Monday and Monday and 2.5mg all other days, or as directed. tamsulosin 0.4 mg capsule 0.4 mg PO BID Qty: 180 3RF Rx Instructions: 30 minutes following the same meal each day digoxin 125 mcg (0.125 mg) tablet 125 mcg PO DAILY metoprolol succinate 25 mg tablet extended release 24 hr 25 mg PO .qhs atorvastatin 10 mg tablet 10 mg PO BEDTIME melatonin 10 mg tablet 10 mg PO BEDTIME PRN Iron High Potency 27 mg tablet 27 mg PO DAILY Patient Comments: Iron High Potency 240mg (27mg iron) Ocuvite 30unit 5mg 150mg 1 cap PO DAILY Referrals: Alejandro Pinto DO [Primary Care Provider] - Stand Alone Forms: Patient Portal/API
--- NOTE | 2024-03-01 18:31 | DI.CT.S_ITS ---
PROCEDURE: CT HEAD/BRAIN WO CON INDICATIONS: vision change TECHNIQUE: Noncontrast 4.5 mm thick angled axial sections acquired from the foramen magnum to the vertex, with coronal and sagittal reformats. For radiation dose reduction, the following was used: automated exposure control, adjustment of mA and/or kV according to patient size. COMPARISON: [facility], CT, CT HEAD/BRAIN WO CON, 01/19/2024, 18:10. FINDINGS: Image quality: Diagnostic. CSF spaces: Basal cisterns are patent. No extra-axial fluid collections. Ventricles are enlarged as before. Brain: No midline shift. No intracranial masses or hemorrhage. No area of hypodensity in a large vascular distribution to suggest acute infarction. Periventricular hypodensity consistent with chronic microvascular ischemic change. Age-related parenchymal loss. Skull and face: Calvarium and visualized facial bones are intact, without suspicious lesions. Sinuses: Visualized sinuses and mastoids are clear. IMPRESSION: No acute intracranial pathology. No interval change seen. Dictated by: Lev Heart M.D. on 03/01/2024 at 18:58 Approved by: Lev Heart M.D. on 03/01/2024 at 19:02
== END 2024-03-01 19:35 | disposition home or self-care (01) ==
PROVIDERS: Emergency Medicine; Emergency Provider Emergency Medicine; Family Provider Family Medicine; PCP Family Medicine
DX: R42 Dizziness and giddiness (principal); R07.9 Chest pain, unspecified; Z79.01 Long term (current) use of anticoagulants
CPT/HCPCS: 36415; 70450; 71045; 80053; 81003; 81015; 82550; 83690; 83735; 84484; 85025; 85610; 85730; 87086; 93005; 99283; 99284

== ENCOUNTER 2024-03-26 16:00 | Outpatient (RCR) | payer MEDICARE, OTHER, SELFPAY ==
[2023-03-15 10:23] VITALS: BMI 23.5
--- NOTE | 2024-02-20 10:30 | PT.OIE ---
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) Cervical somatic dysfunction Chronic atrial fibrillation (01/02/18) Chronic bilateral low back pain without sciatica COVID-19 virus infection Cranial somatic dysfunction Diplopia Elevated random blood glucose level Erectile dysfunction Essential hypertension (02/16/16) Fatigue Foot stiffness History of elevated PSA Incomplete emptying of bladder (02/16/16) Insomnia Left arm weakness Orthostatic hypotension Pelvic somatic dysfunction Physician orders for life-sustaining treatment (POLST) form indicates patient wish for [id number] status Segmental and somatic dysfunction of lumbar region Segmental and somatic dysfunction of rib cage Segmental and somatic dysfunction of sacral region Segmental and somatic dysfunction of thoracic region Somatic dysfunction of both lower extremities Vitamin D deficiency Past Surgical History (Last Reviewed 02/18/24 @ 04:25 by Nahomi Allen MD) Hx of cholecystectomy Status post cholecystectomy Visit Care Team Role Provider Type Alejandro Pinto DO Family Provider Physician Primary Care Provider Specialty: Family Practice Address: [address] [place] [address] Email: Deirdre Higgins PA-C Attending Provider Advanced 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 Shop Worker Referring Provider Specialty: Medical Wound Care Address: [address] [place] [address], [facility] Email: [email or web address] Physical Therapy Initial Evaluation PT-OP-A Visit Information Start: 02/20/24 16:46 Freq: Status: Active Protocol: Document 02/20/24 09:45 DCW (Rec: 02/20/24 17:31 DCW [id number]) Out-Patient Physical Therapy Visit Information Visit Information Visit Type Initial Evaluation Visit Start Time 09:45 Visit Stop Time 10:30 Visit Number 1 Number of LINER ASSEMBLER Visits 0 Evaluation Information Evaluation Date 02/20/24 PT-OP-B Current Condition Start: 02/20/24 16:46 Freq: Status: Active Protocol: Document 02/20/24 09:45 DCW (Rec: 02/21/24 09:37 DCW [id number]) Current Condition History of Current Condition Onset Date One year history Current Complaints Unsteadiness, light-headedness History of Current Condition Pt is an 83 year old male presenting with a one year history of insidious onset of imbalance/light-headedness. Symptoms are worse when he is up moving around. Reports it has been consistent for the past year, but over the last few weeks, it has seemed to be getting a bit worse. Used to clear up with sitting, but now symptoms linger. Has been sent back and forth between cardio and neurology with no real answers, has tried a few different medications with no real effects. Did undergo a brain MRI, no cause for his symptoms found. Reports symptoms feel like like my head is too large and my body has to support it. Prior Treatments and Tests Brain MRI: IMPRESSION: 1. No acute infarction. No gross acute intracranial bleed or midline shift. 2. Age related volume loss and moderate white matter chronic small vessel ischemic changes. per Marco Antonio Gross M.D. on 01/19/2024 PT-OP-C Subjective Start: 02/20/24 16:46 Freq: Status: Active Protocol: Document 02/20/24 09:45 DCW (Rec: 02/20/24 17:31 DCW [id number]) OP-PT Subjective Patient Comments Patient Comments I just started feeling wacky one day. Patient Reported Progress Worse Patient Questionnaires Dizziness Handicap Inventory DHI Score 42% DHI Functional Impairment 40 to 59% Impaired (Score 40- 59) PT-OP-O Vestibular Start: 02/20/24 16:46 Freq: Status: Active Protocol: Document 02/20/24 09:45 DCW (Rec: 02/21/24 09:32 DCW [id number]) Vestibular Assessment Auditory Tests Gary Test Within normal limits Rinne Test Negative Air Conduction Results Equal Visual Testing Smooth Pursuits Horizontal WNL Smooth Pursuits Vertical WNL Saccades Horizontal WNL Heave Test Positive Bilateral Thrust Head Positive Bilateral Convergence Test Impaired DVA (Line Degradation) 5 Positional Testing Hoang-Hallpike Negative Left,Negative Right Rolling Test Negative Left,Negative Right Vestibular Function Tests CTSIB Position 1 Mild Sway CTSIB Position 2 Mild Sway CTSIB Position 3 Moderate Sway CTSIB Position 4 Moderate Sway CTSIB Position 5 Fall Reaction CTSIB Position 6 Fall Reaction Comments Vestibular Comments Convergence testing: Diplopia at 18 cm PT-OP-Q Treatments Start: 02/20/24 16:46 Freq: Status: Active Protocol: Document 02/20/24 09:45 DCW (Rec: 02/21/24 09:32 DCW [id number]) Neuro Re-Education Treatment Vestibular Rehabilitation X1 Viewing Details Static target, head turns Distance From Target Arm's length Speed as tolerated Position Seated VOR Retraining Details VOR cancellation: Target and head move together Distance From Target Arm's length Speed as tolerated Position Seated PT-OP-T Assessment and Plan Start: 02/20/24 16:46 Freq: Status: Active Protocol: Document 02/20/24 09:45 DCW (Rec: 02/21/24 17:21 DCW [id number]) Physical Therapy Assessment Rehab Potential Rehabilitation Potential Fair Evaluation Complexity Number of Personal Factors/Comorbidities 3 or More Number of Body Systems Impaired 4 or More Clinical Presentation at Evaluation Unstable Impairments Impairments Activity Tolerance,Balance, Functional Activities, Functional Mobility,Vestibular ,Visual Motor Goals Three Impairment Pt scores a 42% disability on the Dizziness Handicap Inventory Inside Sales Lead Goal (LTG) Pt to decrease DHI score by at least 12 percentage points to 30% in order to demonstrate decrease in severity of subjective dizziness LTG Duration 04/21/24 Two Impairment Fall reaction in CTSIB positions V and Inside Sales Lead Goal (LTG) Pt to exhibit at most moderate sway while maintaining balance for 30 seconds in all CTSIB positions LTG Duration 04/21/24 One Impairment Pt does not have an appropriate home exercise program Short Term Goal (STG) Pt to be independent and compliant with an appropriate HEP STG Duration 03/21/24 Assessment Summary Assessment Pt presents with vague complaints of light-headedness and subjective unsteadiness when up standing and walking around. Vestibular testing largely negative today. Does struggle with DVA (5 line degradation) and convergence ( diplopia at 18 cm), however pt has a long standing issue with vision after cataract surgery, which limits ability to draw accurate results from these tests. Only other positive test today was CTSIB, pt exhibited fall reaction in positions V and . 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 Vestibular rehabilitation can be beneficial for patients with PPPD, typically responding well to habituation exercises. Due to the fact that there is no true testing that can rule in or out PPPD, best course of action is typically provided vestibular rehabilitation and seeing if it reduces symptoms. Pt should still plan to follow up with neurologist and glue jointer feeder at this time Physical Therapy Plan Frequency and Duration Frequency of Treatment 2x/Week Plan of Care Start Date 02/20/24 Plan of Care End Date 04/21/24 Therapeutic Interventions Therapeutic Interventions Balance Training,Canalithic Repositioning,Coordination Training,Gait Training,Home Exercise Program,Manual Therapy,Neuromuscular Re- education,Patient/Caregiver Education,Self-Care/Home Management,Therapeutic Activities,Therapeutic Exercises,Vestibular Rehabilitation Next Visit Focus/Plan Next Note Type Treatment Note Next Visit Plan Habituation/Adaptation exercises, Vestibular rehab, balance training
--- NOTE | 2024-02-20 10:30 | PT.OPPOC ---
Physical, Occupational & Speech Therapy At Current Diagnoses Essential (primary) hypertension (02/20/24) Unsteadiness on feet (02/20/24) Dizziness and giddiness (02/20/24) History of falling (02/20/24) Visit Care Team Role Provider Type Alejandro Pinto DO Family Provider Physician Primary Care Provider Specialty: Family Practice Address: [address] [place] [address], [id number] Email: Deirdre Higgins PA-C Attending Provider [employer] Manager Referring Provider Specialty: Medical Wound Care Address: [address] [place] [address], [id number] Email: [email or web address] Plan Of Care PT-OP-T Assessment and Plan Start: 02/20/24 16:46 Freq: Status: Active Protocol: Document 02/20/24 09:45 DCW (Rec: 02/21/24 17:21 DCW [id number]) Physical Therapy Assessment Rehab Potential Rehabilitation Potential Fair Evaluation Complexity Number of Personal Factors/Comorbidities 3 or More Number of Body Systems Impaired 4 or More Clinical Presentation at Evaluation Unstable Impairments Impairments Activity Tolerance,Balance, Functional Activities, Functional Mobility,Vestibular ,Visual Motor Goals Three Impairment Pt scores a 42% disability on the Dizziness Handicap Inventory Armed Security Officer Goal (LTG) Pt to decrease DHI score by at least 12 percentage points to 30% in order to demonstrate decrease in severity of subjective dizziness LTG Duration 04/21/24 Two Impairment Fall reaction in CTSIB positions V and Custodial Goal (LTG) Pt to exhibit at most moderate sway while maintaining balance for 30 seconds in all CTSIB positions LTG Duration 04/21/24 One Impairment Pt does not have an appropriate home exercise program Short Term Goal (STG) Pt to be independent and compliant with an appropriate HEP STG Duration 03/21/24 Assessment Summary Assessment Pt presents with vague complaints of light-headedness and subjective unsteadiness when up standing and walking around. Vestibular testing largely negative today. Does struggle with DVA (5 line degradation) and convergence ( diplopia at 18 cm), however pt has a long standing issue with vision after cataract surgery, which limits ability to draw accurate results from these tests. Only other positive test today was CTSIB, pt exhibited fall reaction in positions V and . 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 Vestibular rehabilitation can be beneficial for patients with PPPD, typically responding well to habituation exercises. Due to the fact that there is no true testing that can rule in or out PPPD, best course of action is typically provided vestibular rehabilitation and seeing if it reduces symptoms. Pt should still plan to follow up with neurologist and account resolution specialist at this time Physical Therapy Plan Frequency and Duration Frequency of Treatment 2x/Week Plan of Care Start Date 02/20/24 Plan of Care End Date 04/21/24 Therapeutic Interventions Therapeutic Interventions Balance Training,Canalithic Repositioning,Coordination Training,Gait Training,Home Exercise Program,Manual Therapy,Neuromuscular Re- education,Patient/Caregiver Education,Self-Care/Home Management,Therapeutic Activities,Therapeutic Exercises,Vestibular Rehabilitation Next Visit Focus/Plan Next Note Type Treatment Note Next Visit Plan Habituation/Adaptation exercises, Vestibular rehab, balance training Plan of Care Dates Plan of Care Start Date 02/20/24 Plan of Care End Date 04/21/24 Electronically Signed by: Dakota Kilgore, PT 02/21/24 [id number] If you are in agreement with this Plan of Care, please return a signed and dated copy. I have reviewed this Plan of Care and certify that the skilled therapy services above are required to meet the patient?s needs. Physician Signature Date Printed Name and Credentials Clinical Instructor Signature Printed Name and Credentials
--- NOTE | 2024-02-22 16:03 | PT.OTN ---
Current Diagnoses Essential (primary) hypertension (02/22/24) Unsteadiness on feet (02/22/24) Dizziness and giddiness (02/22/24) History of falling (02/22/24) Physical Therapy Treatment Note PT-OP-A Visit Information Start: 02/20/24 16:46 Freq: Status: Active Protocol: Document 02/22/24 15:15 DCW (Rec: 02/22/24 16:03 DCW [id number]) Out-Patient Physical Therapy Visit Information Visit Information Visit Type Treatment Note Visit Start Time 15:15 Visit Stop Time 16:00 Visit Number 2 Number of CONE EXAMINER Visits 0 Evaluation Information Evaluation Date 02/20/24 PT-OP-B Current Condition Start: 02/20/24 16:46 Freq: Status: Active Protocol: Document 02/20/24 09:45 DCW (Rec: 02/21/24 09:37 DCW [id number]) Current Condition History of Current Condition Onset Date One year history Current Complaints Unsteadiness, light-headedness History of Current Condition Pt is an 83 year old male presenting with a one year history of insidious onset of imbalance/light-headedness. Symptoms are worse when he is up moving around. Reports it has been consistent for the past year, but over the last few weeks, it has seemed to be getting a bit worse. Used to clear up with sitting, but now symptoms linger. Has been sent back and forth between cardio and neurology with no real answers, has tried a few different medications with no real effects. Did undergo a brain MRI, no cause for his symptoms found. Reports symptoms feel like like my head is too large and my body has to support it. Prior Treatments and Tests Brain MRI: IMPRESSION: 1. No acute infarction. No gross acute intracranial bleed or midline shift. 2. Age related volume loss and moderate white matter chronic small vessel ischemic changes. per Marco Antonio Gross M.D. on 01/19/2024 PT-OP-C Subjective Start: 02/20/24 16:46 Freq: Status: Active Protocol: Document 02/22/24 15:15 DCW (Rec: 02/22/24 16:03 DCW [id number]) OP-PT Subjective Patient Comments Patient Comments Pt so-so today. PT-OP-O Vestibular Start: 02/20/24 16:46 Freq: Status: Active Protocol: Document 02/20/24 09:45 DCW (Rec: 02/21/24 09:32 DCW [id number]) Vestibular Assessment Auditory Tests Gary Test Within normal limits Rinne Test Negative Air Conduction Results Equal Visual Testing Smooth Pursuits Horizontal WNL Smooth Pursuits Vertical WNL Saccades Horizontal WNL Heave Test Positive Bilateral Thrust Head Positive Bilateral Convergence Test Impaired DVA (Line Degradation) 5 Positional Testing Hoang-Hallpike Negative Left,Negative Right Rolling Test Negative Left,Negative Right Vestibular Function Tests CTSIB Position 1 Mild Sway CTSIB Position 2 Mild Sway CTSIB Position 3 Moderate Sway CTSIB Position 4 Moderate Sway CTSIB Position 5 Fall Reaction CTSIB Position 6 Fall Reaction Comments Vestibular Comments Convergence testing: Diplopia at 18 cm PT-OP-Q Treatments Start: 02/20/24 16:46 Freq: Status: Active Protocol: Document 02/22/24 15:15 DCW (Rec: 02/22/24 16:03 DCW [id number]) Neuro Re-Education Treatment Balance Activities Dynamic Gait Details Head turns in hallway SLS Details SLS Foam Details EO/EC Surface AirEx Tandem Details Tandem Stance Vestibular Rehabilitation Corrective Saccades Details Eyes, then Head Distance From Target Arm's length Speed as tolerated Position Seated X2 Viewing Details Head and target moving in opposite directions Distance From Target Arm's length Speed as tolerated Position Seated X1 Viewing Details Static target, head turns Distance From Target Arm's length Speed as tolerated Position Seated VOR Retraining Details VOR cancellation: Target and head move together Distance From Target Arm's length Speed as tolerated Position Seated PT-OP-T Assessment and Plan Start: 02/20/24 16:46 Freq: Status: Active Protocol: Document 02/22/24 15:15 DCW (Rec: 02/22/24 16:03 DCW [id number]) Physical Therapy Assessment Impairments Impairments Activity Tolerance,Balance, Functional Activities, Functional Mobility,Vestibular ,Visual Motor Goals Three Impairment Pt scores a 42% disability on the Dizziness Handicap Inventory Nursing Home Goal (LTG) Pt to decrease DHI score by at least 12 percentage points to 30% in order to demonstrate decrease in severity of subjective dizziness LTG Duration 04/21/24 Two Impairment Fall reaction in CTSIB positions V and Tobacco Classer Goal (LTG) Pt to exhibit at most moderate sway while maintaining balance for 30 seconds in all CTSIB positions LTG Duration 04/21/24 One Impairment Pt does not have an appropriate home exercise program Short Term Goal (STG) Pt to be independent and compliant with an appropriate HEP STG Duration 03/21/24 Assessment Summary Assessment Pt had some mild increased symptoms with vestibular challenges, instructed for pt to continue with mild symptoms , limit worsening with rest. Physical Therapy Plan Frequency and Duration Frequency of Treatment 2x/Week Plan of Care Start Date 02/20/24 Plan of Care End Date 04/21/24 Therapeutic Interventions Therapeutic Interventions Balance Training,Canalithic Repositioning,Coordination Training,Gait Training,Home Exercise Program,Manual Therapy,Neuromuscular Re- education,Patient/Caregiver Education,Self-Care/Home Management,Therapeutic Activities,Therapeutic Exercises,Vestibular Rehabilitation Next Visit Focus/Plan Next Note Type Treatment Note Next Visit Plan Habituation/Adaptation exercises, Vestibular rehab, balance training
--- NOTE | 2024-02-28 11:14 | PT.OTN ---
Current Diagnoses Essential (primary) hypertension (02/28/24) Unsteadiness on feet (02/28/24) Dizziness and giddiness (02/28/24) History of falling (02/28/24) Physical Therapy Treatment Note PT-OP-A Visit Information Start: 02/20/24 16:46 Freq: Status: Active Protocol: Document 02/28/24 10:30 DCW (Rec: 02/28/24 11:14 DCW [id number]) Out-Patient Physical Therapy Visit Information Visit Information Visit Type Treatment Note Visit Start Time 10:30 Visit Stop Time 11:15 Visit Number 3 Number of CLAY DRY PRESS HELPER Visits 0 Evaluation Information Evaluation Date 02/20/24 PT-OP-B Current Condition Start: 02/20/24 16:46 Freq: Status: Active Protocol: Document 02/20/24 09:45 DCW (Rec: 02/21/24 09:37 DCW [id number]) Current Condition History of Current Condition Onset Date One year history Current Complaints Unsteadiness, light-headedness History of Current Condition Pt is an 83 year old male presenting with a one year history of insidious onset of imbalance/light-headedness. Symptoms are worse when he is up moving around. Reports it has been consistent for the past year, but over the last few weeks, it has seemed to be getting a bit worse. Used to clear up with sitting, but now symptoms linger. Has been sent back and forth between cardio and neurology with no real answers, has tried a few different medications with no real effects. Did undergo a brain MRI, no cause for his symptoms found. Reports symptoms feel like like my head is too large and my body has to support it. Prior Treatments and Tests Brain MRI: IMPRESSION: 1. No acute infarction. No gross acute intracranial bleed or midline shift. 2. Age related volume loss and moderate white matter chronic small vessel ischemic changes. per Marco Antonio Gross M.D. on 01/19/2024 PT-OP-C Subjective Start: 02/20/24 16:46 Freq: Status: Active Protocol: Document 02/28/24 10:30 DCW (Rec: 02/28/24 11:14 DCW [id number]) OP-PT Subjective Patient Comments Patient Comments Pt notes symptoms were a little worse this morning, but back to normal right now. PT-OP-O Vestibular Start: 02/20/24 16:46 Freq: Status: Active Protocol: Document 02/20/24 09:45 DCW (Rec: 02/21/24 09:32 DCW [id number]) Vestibular Assessment Auditory Tests Gary Test Within normal limits Rinne Test Negative Air Conduction Results Equal Visual Testing Smooth Pursuits Horizontal WNL Smooth Pursuits Vertical WNL Saccades Horizontal WNL Heave Test Positive Bilateral Thrust Head Positive Bilateral Convergence Test Impaired DVA (Line Degradation) 5 Positional Testing Hoang-Hallpike Negative Left,Negative Right Rolling Test Negative Left,Negative Right Vestibular Function Tests CTSIB Position 1 Mild Sway CTSIB Position 2 Mild Sway CTSIB Position 3 Moderate Sway CTSIB Position 4 Moderate Sway CTSIB Position 5 Fall Reaction CTSIB Position 6 Fall Reaction Comments Vestibular Comments Convergence testing: Diplopia at 18 cm PT-OP-Q Treatments Start: 02/20/24 16:46 Freq: Status: Active Protocol: Document 02/28/24 10:30 DCW (Rec: 02/28/24 11:14 DCW [id number]) Gym Equipment Shuttle Balance Red Details Wide ESAU, Staggered Neuro Re-Education Treatment Balance Activities Visual Conflict Details Visual Conflict board Surface Large blue foam Hurdles Details Hurdles/Foam Comments Fwd, Side-stepping Dynamic Gait Details Hallway Ambulation Comments Head turns (100 bpm) Tandem Ambulation Retro Ambulation Foam Details Stride stance (EO/EC) Surface AirEx PT-OP-T Assessment and Plan Start: 02/20/24 16:46 Freq: Status: Active Protocol: Document 02/28/24 10:30 DCW (Rec: 02/28/24 11:14 DCW [id number]) Physical Therapy Assessment Impairments Impairments Activity Tolerance,Balance, Functional Activities, Functional Mobility,Vestibular ,Visual Motor Goals Three Impairment Pt scores a 42% disability on the Dizziness Handicap Inventory Gym Teacher Goal (LTG) Pt to decrease DHI score by at least 12 percentage points to 30% in order to demonstrate decrease in severity of subjective dizziness LTG Duration 04/21/24 Two Impairment Fall reaction in CTSIB positions V and Gym Teacher Goal (LTG) Pt to exhibit at most moderate sway while maintaining balance for 30 seconds in all CTSIB positions LTG Duration 04/21/24 One Impairment Pt does not have an appropriate home exercise program Short Term Goal (STG) Pt to be independent and compliant with an appropriate HEP STG Duration 03/21/24 Assessment Summary Assessment Good response today to increased balance challenges, pt tolerated visual conflict better than during his initial evaluation. Pt reports he has been compliant so far with his HEP, feels they are getting easier. Physical Therapy Plan Frequency and Duration Frequency of Treatment 2x/Week Plan of Care Start Date 02/20/24 Plan of Care End Date 04/21/24 Therapeutic Interventions Therapeutic Interventions Balance Training,Canalithic Repositioning,Coordination Training,Gait Training,Home Exercise Program,Manual Therapy,Neuromuscular Re- education,Patient/Caregiver Education,Self-Care/Home Management,Therapeutic Activities,Therapeutic Exercises,Vestibular Rehabilitation Next Visit Focus/Plan Next Note Type Treatment Note Next Visit Plan Habituation/Adaptation exercises, Vestibular rehab, balance training
--- NOTE | 2024-03-07 17:50 | PT.OTN ---
Current Diagnoses Essential (primary) hypertension (03/07/24) Unsteadiness on feet (03/07/24) Dizziness and giddiness (03/07/24) History of falling (03/07/24) Physical Therapy Treatment Note PT-OP-A Visit Information Start: 02/20/24 16:46 Freq: Status: Active Protocol: Document 03/07/24 16:45 DCW (Rec: 03/07/24 17:50 DCW [id number]) Out-Patient Physical Therapy Visit Information Visit Information Visit Type Treatment Note Visit Start Time 16:45 Visit Stop Time 17:30 Visit Number 4 Number of INCIDENT ANALYST Visits 0 Evaluation Information Evaluation Date 02/20/24 PT-OP-B Current Condition Start: 02/20/24 16:46 Freq: Status: Active Protocol: Document 02/20/24 09:45 DCW (Rec: 02/21/24 09:37 DCW [id number]) Current Condition History of Current Condition Onset Date One year history Current Complaints Unsteadiness, light-headedness History of Current Condition Pt is an 83 year old male presenting with a one year history of insidious onset of imbalance/light-headedness. Symptoms are worse when he is up moving around. Reports it has been consistent for the past year, but over the last few weeks, it has seemed to be getting a bit worse. Used to clear up with sitting, but now symptoms linger. Has been sent back and forth between cardio and neurology with no real answers, has tried a few different medications with no real effects. Did undergo a brain MRI, no cause for his symptoms found. Reports symptoms feel like like my head is too large and my body has to support it. Prior Treatments and Tests Brain MRI: IMPRESSION: 1. No acute infarction. No gross acute intracranial bleed or midline shift. 2. Age related volume loss and moderate white matter chronic small vessel ischemic changes. per Marco Antonio Gross M.D. on 01/19/2024 PT-OP-C Subjective Start: 02/20/24 16:46 Freq: Status: Active Protocol: Document 03/07/24 16:45 DCW (Rec: 03/07/24 17:50 DCW [id number]) OP-PT Subjective Patient Comments Patient Comments I'm still light-headed. PT-OP-O Vestibular Start: 04/09/24 16:46 Freq: Status: Active Protocol: Document 02/20/24 09:45 DCW (Rec: 02/21/24 09:32 DCW [id number]) Vestibular Assessment Auditory Tests Gary Test Within normal limits Rinne Test Negative Air Conduction Results Equal Visual Testing Smooth Pursuits Horizontal WNL Smooth Pursuits Vertical WNL Saccades Horizontal WNL Heave Test Positive Bilateral Thrust Head Positive Bilateral Convergence Test Impaired DVA (Line Degradation) 5 Positional Testing Hoang-Hallpike Negative Left,Negative Right Rolling Test Negative Left,Negative Right Vestibular Function Tests CTSIB Position 1 Mild Sway CTSIB Position 2 Mild Sway CTSIB Position 3 Moderate Sway CTSIB Position 4 Moderate Sway CTSIB Position 5 Fall Reaction CTSIB Position 6 Fall Reaction Comments Vestibular Comments Convergence testing: Diplopia at 18 cm PT-OP-Q Treatments Start: 02/20/24 16:46 Freq: Status: Active Protocol: Document 03/07/24 16:45 DCW (Rec: 03/07/24 17:50 DCW [id number]) Gym Equipment Shuttle Balance Red Details Wide ESAU, Staggered Neuro Re-Education Treatment Balance Activities Dynamic Gait Details Hallway Ambulation Comments Head turns (100 bpm) Tandem Ambulation Retro Ambulation Self-Care/Home Management Treatment Education Other Education Extended time today spent discussing pt's unusual symptoms, possibilities for next step, suggestions for pt to bring up to PCP. PT-OP-T Assessment and Plan Start: 02/20/24 16:46 Freq: Status: Active Protocol: Document 03/07/24 16:45 DCW (Rec: 03/07/24 17:50 DCW [id number]) Physical Therapy Assessment Impairments Impairments Activity Tolerance,Balance, Functional Activities, Functional Mobility,Vestibular ,Visual Motor Goals Three Impairment Pt scores a 42% disability on the Dizziness Handicap Inventory Field Mechanic Goal (LTG) Pt to decrease DHI score by at least 12 percentage points to 30% in order to demonstrate decrease in severity of subjective dizziness LTG Duration 04/21/24 Two Impairment Fall reaction in CTSIB positions V and Field Mechanic Goal (LTG) Pt to exhibit at most moderate sway while maintaining balance for 30 seconds in all CTSIB positions LTG Duration 04/21/24 One Impairment Pt does not have an appropriate home exercise program Short Term Goal (STG) Pt to be independent and compliant with an appropriate HEP STG Duration 03/21/24 Assessment Summary Assessment Pt largely frustrated with lack of progress and inability to get any answers. Brought up possibility of discussing medications with PCP, determining if side effects. Physical Therapy Plan Frequency and Duration Frequency of Treatment 2x/Week Plan of Care Start Date 02/20/24 Plan of Care End Date 04/21/24 Therapeutic Interventions Therapeutic Interventions Balance Training,Canalithic Repositioning,Coordination Training,Gait Training,Home Exercise Program,Manual Therapy,Neuromuscular Re- education,Patient/Caregiver Education,Self-Care/Home Management,Therapeutic Activities,Therapeutic Exercises,Vestibular Rehabilitation Next Visit Focus/Plan Next Note Type Treatment Note Next Visit Plan Habituation/Adaptation exercises, Vestibular rehab, balance training
--- NOTE | 2024-03-21 17:33 | PT.OTN ---
Current Diagnoses Essential (primary) hypertension (03/21/24) Unsteadiness on feet (03/21/24) Dizziness and giddiness (03/21/24) History of falling (03/21/24) Physical Therapy Treatment Note PT-OP-A Visit Information Start: 02/20/24 16:46 Freq: Status: Active Protocol: Document 03/21/24 16:45 DCW (Rec: 03/21/24 17:33 DCW [id number]) Out-Patient Physical Therapy Visit Information Visit Information Visit Type Treatment Note Visit Start Time 16:45 Visit Stop Time 17:30 Visit Number 5 Number of MINERAL MIXER Visits 0 Evaluation Information Evaluation Date 02/20/24 PT-OP-B Current Condition Start: 02/20/24 16:46 Freq: Status: Active Protocol: Document 02/20/24 09:45 DCW (Rec: 02/21/24 09:37 DCW [id number]) Current Condition History of Current Condition Onset Date One year history Current Complaints Unsteadiness, light-headedness History of Current Condition Pt is an 83 year old male presenting with a one year history of insidious onset of imbalance/light-headedness. Symptoms are worse when he is up moving around. Reports it has been consistent for the past year, but over the last few weeks, it has seemed to be getting a bit worse. Used to clear up with sitting, but now symptoms linger. Has been sent back and forth between cardio and neurology with no real answers, has tried a few different medications with no real effects. Did undergo a brain MRI, no cause for his symptoms found. Reports symptoms feel like like my head is too large and my body has to support it. Prior Treatments and Tests Brain MRI: IMPRESSION: 1. No acute infarction. No gross acute intracranial bleed or midline shift. 2. Age related volume loss and moderate white matter chronic small vessel ischemic changes. per Marco Antonio Gross M.D. on 01/19/2024 PT-OP-C Subjective Start: 02/20/24 16:46 Freq: Status: Active Protocol: Document 03/21/24 16:45 DCW (Rec: 03/21/24 17:33 DCW [id number]) OP-PT Subjective Patient Comments Patient Comments It's one of my semi-good days . PT-OP-O Vestibular Start: 02/20/24 16:46 Freq: Status: Active Protocol: Document 02/20/24 09:45 DCW (Rec: 02/21/24 09:32 DCW [id number]) Vestibular Assessment Auditory Tests Gary Test Within normal limits Rinne Test Negative Air Conduction Results Equal Visual Testing Smooth Pursuits Horizontal WNL Smooth Pursuits Vertical WNL Saccades Horizontal WNL Heave Test Positive Bilateral Thrust Head Positive Bilateral Convergence Test Impaired DVA (Line Degradation) 5 Positional Testing [place]-Hallpike Negative Left,Negative Right Rolling Test Negative Left,Negative Right Vestibular Function Tests CTSIB Position 1 Mild Sway CTSIB Position 2 Mild Sway CTSIB Position 3 Moderate Sway CTSIB Position 4 Moderate Sway CTSIB Position 5 Fall Reaction CTSIB Position 6 Fall Reaction Comments Vestibular Comments Convergence testing: Diplopia at 18 cm PT-OP-Q Treatments Start: 02/20/24 16:46 Freq: Status: Active Protocol: Document 03/21/24 16:45 DCW (Rec: 03/21/24 17:33 DCW [id number]) Gym Equipment Shuttle Balance Red Details Wide ESAU, Staggered Neuro Re-Education Treatment Balance Activities BOSU Lunge Details BOSU Lunge Surface Blue BOSU Visual Conflict Details Visual Conflict board Surface AirEx Hurdles Details Hurdles/Foam Comments Fwd, Side-stepping Dynamic Gait Details Hallway Ambulation Comments Head turns (100 bpm) Tandem Ambulation Retro Ambulation Foam Details (EO/EC) Surface AirEx PT-OP-T Assessment and Plan Start: 02/20/24 16:46 Freq: Status: Active Protocol: Document 03/21/24 16:45 DCW (Rec: 03/21/24 17:33 DCW [id number]) Physical Therapy Assessment Impairments Impairments Activity Tolerance,Balance, Functional Activities, Functional Mobility,Vestibular ,Visual Motor Goals Three Impairment Pt scores a 42% disability on the Dizziness Handicap Inventory Mcfp Goal (LTG) Pt to decrease DHI score by at least 12 percentage points to 30% in order to demonstrate decrease in severity of subjective dizziness LTG Duration 04/21/24 Two Impairment Fall reaction in CTSIB positions V and Mcfp Goal (LTG) Pt to exhibit at most moderate sway while maintaining balance for 30 seconds in all CTSIB positions LTG Duration 04/21/24 One Impairment Pt does not have an appropriate home exercise program Short Term Goal (STG) Pt to be independent and compliant with an appropriate HEP STG Duration 03/21/24 Assessment Summary Assessment Pt showing some overall improvement with balance, improvement with positions V and on CTSIB, able to maintain stability without LOB . Physical Therapy Plan Frequency and Duration Frequency of Treatment 2x/Week Plan of Care Start Date 02/20/24 Plan of Care End Date 04/21/24 Therapeutic Interventions Therapeutic Interventions Balance Training,Canalithic Repositioning,Coordination Training,Gait Training,Home Exercise Program,Manual Therapy,Neuromuscular Re- education,Patient/Caregiver Education,Self-Care/Home Management,Therapeutic Activities,Therapeutic Exercises,Vestibular Rehabilitation Next Visit Focus/Plan Next Note Type Treatment Note Next Visit Plan Habituation/Adaptation exercises, Vestibular rehab, balance training
--- NOTE | 2024-03-26 16:45 | PT.OTN ---
Current Diagnoses Essential (primary) hypertension (03/26/24) Unsteadiness on feet (03/26/24) Dizziness and giddiness (03/26/24) History of falling (03/26/24) Physical Therapy Treatment Note PT-OP-A Visit Information Start: 02/20/24 16:46 Freq: Status: Active Protocol: Document 03/26/24 16:02 DCW (Rec: 03/26/24 16:45 DCW [id number]) Out-Patient Physical Therapy Visit Information Visit Information Visit Type Discharge Summary Visit Start Time 16:02 Visit Stop Time 16:41 Visit Number 6 Number of CRUSHER FEEDER Visits 0 Evaluation Information Evaluation Date 02/20/24 PT-OP-B Current Condition Start: 02/20/24 16:46 Freq: Status: Active Protocol: Document 02/20/24 09:45 DCW (Rec: 02/21/24 09:37 DCW [id number]) Current Condition History of Current Condition Onset Date One year history Current Complaints Unsteadiness, light-headedness History of Current Condition Pt is an 83 year old male presenting with a one year history of insidious onset of imbalance/light-headedness. Symptoms are worse when he is up moving around. Reports it has been consistent for the past year, but over the last few weeks, it has seemed to be getting a bit worse. Used to clear up with sitting, but now symptoms linger. Has been sent back and forth between cardio and neurology with no real answers, has tried a few different medications with no real effects. Did undergo a brain MRI, no cause for his symptoms found. Reports symptoms feel like like my head is too large and my body has to support it. Prior Treatments and Tests Brain MRI: IMPRESSION: 1. No acute infarction. No gross acute intracranial bleed or midline shift. 2. Age related volume loss and moderate white matter chronic small vessel ischemic changes. per Marco Antonio Gross M.D. on 01/19/2024 PT-OP-C Subjective Start: 02/20/24 16:46 Freq: Status: Active Protocol: Document 03/26/24 16:02 DCW (Rec: 03/26/24 16:45 DCW [id number]) OP-PT Subjective Patient Comments Patient Comments Today's not a good day, notes he feels dehydrated. PT-OP-O Vestibular Start: 02/20/24 16:46 Freq: Status: Active Protocol: Document 03/26/24 16:02 DCW (Rec: 03/26/24 16:45 DCW [id number]) Vestibular Assessment Vestibular Function Tests CTSIB Position 1 Mild Sway CTSIB Position 2 Mild Sway CTSIB Position 3 Moderate Sway CTSIB Position 4 Moderate Sway CTSIB Position 5 Moderate Sway CTSIB Position 6 Moderate Sway PT-OP-Q Treatments Start: 02/20/24 16:46 Freq: Status: Active Protocol: Document 03/26/24 16:02 DCW (Rec: 03/26/24 16:45 DCW [id number]) Gym Equipment Shuttle Balance Red Details Wide ESAU, Staggered Neuro Re-Education Treatment Balance Activities BOSU Lunge Details BOSU Lunge Surface Blue BOSU Dynamic Gait Details Hallway Ambulation Comments Head turns (100 bpm) Tandem Ambulation Retro Ambulation PT-OP-T Assessment and Plan Start: 02/20/24 16:46 Freq: Status: Active Protocol: Document 03/26/24 16:02 DCW (Rec: 03/26/24 16:45 DCW [id number]) Physical Therapy Assessment Impairments Impairments Activity Tolerance,Balance, Functional Activities, Functional Mobility,Vestibular ,Visual Motor Goals Three Impairment Pt scores a 42% disability on the Dizziness Handicap Inventory Plug Overwrap Machine Tender Goal (LTG) Pt to decrease DHI score by at least 12 percentage points to 30% in order to demonstrate decrease in severity of subjective dizziness LTG Duration 04/21/24 Two Impairment Fall reaction in CTSIB positions V and Jail Goal (LTG) Pt to exhibit at most moderate sway while maintaining balance for 30 seconds in all CTSIB positions LTG Duration Met One Impairment Pt does not have an appropriate home exercise program Short Term Goal (STG) Pt to be independent and compliant with an appropriate HEP STG Duration Met Assessment Summary Assessment Pt balance largely improved, able to maintain balance for 30+ seconds with moderate or better sway in all CTSIB positions. Feels more comfortable with independent HEP, doing well with challenging balance at home. Unfortunately, has not made any difference with pt's main complaint of near-constant sensations of lightheadedness. No indication that pt's complaints are vestibular in origin. At this time, pt appropriate for discharge from vestibular therapy. Physical Therapy Plan Frequency and Duration Frequency of Treatment 2x/Week Plan of Care Start Date 02/20/24 Plan of Care End Date 04/21/24 Therapeutic Interventions Therapeutic Interventions Balance Training,Canalithic Repositioning,Coordination Training,Gait Training,Home Exercise Program,Manual Therapy,Neuromuscular Re- education,Patient/Caregiver Education,Self-Care/Home Management,Therapeutic Activities,Therapeutic Exercises,Vestibular Rehabilitation Next Visit Focus/Plan Next Note Type Treatment Note Next Visit Plan Habituation/Adaptation exercises, Vestibular rehab, balance training
== END 2024-03-28 12:15 | disposition home or self-care (01) ==
LOC: PHYS 16:00
PROVIDERS: Family Provider Family Medicine; PCP Family Medicine; Referring Provider Physician Assistant; Visit Provider Physician Assistant
DX: Z91.81 History of falling (principal); R42 Dizziness and giddiness; I10 Essential (primary) hypertension; R26.81 Unsteadiness on feet
CPT/HCPCS: 97112; 97163; 97535

== ENCOUNTER → 2024-04-24 12:53 | Outpatient (CLI) | payer MEDICARE, OTHER, SELFPAY ==
[2023-03-15 10:23] VITALS: BMI 23.5
== END ==
PROVIDERS: Family Provider Family Medicine; PCP Family Medicine; Referring Provider Internal Medicine Critical Care Medicine; Visit Provider Internal Medicine Critical Care Medicine
DX: J61 Pneumoconiosis due to asbestos and other mineral fibers (principal); Z87.891 Personal history of nicotine dependence; R94.2 Abnormal results of pulmonary function studies
CPT/HCPCS: 94060; 94726; 94729

== ENCOUNTER 2024-05-19 22:56 | Emergency (ER) | payer MEDICARE, OTHER, SELFPAY ==
[2023-03-15 10:23] VITALS: BMI 23.5
[2024-05-19 23:08] VITALS: PULSE 91; O2SAT 96
[2024-05-19 23:10] VITALS: BP 181/88; PULSE 87; O2SAT 98
[2024-05-19 23:11] VITALS: BP 181/88; PULSE 81; RESP 16; TEMP 36.8; O2SAT 96; BMI 23.3
--- NOTE | 2024-05-19 23:20 | DI.RAD.S_ITS ---
PROCEDURE: XR CHEST 1V INDICATIONS: chest pain TECHNIQUE: One view of the chest was acquired. COMPARISON: [facility], CR, XR CHEST 1V, 03/01/2024, 13:00. FINDINGS: Surgical changes and devices: None. Lungs and pleura: Redemonstration of chronic lower lung pleural thickening/interstitial changes. No focal dense airspace consolidation. No significant pleural effusions or pneumothorax. Mediastinum: Mediastinal contours appear normal. Heart size is normal. Bones and chest wall: No suspicious bony lesions. Overlying soft tissues appear unremarkable. IMPRESSION: Compared to prior radiograph 03/01/2024, no significant change in lower lobe pre-dominant interstitial prominence/pleural thickening , which could be related to pulmonary fibrosis. No new focal airspace consolidation. Approved by: Erika Altamirano M.D.,Ph.D. on 05/20/2024 at 0:13
--- NOTE | 2024-05-19 23:20 | EKG_ITS ---
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
[2024-05-19 23:30] VITALS: PULSE 86; RESP 26; O2SAT 97
[2024-05-19 23:31] VITALS: BP 160/92; PULSE 83; RESP 30; O2SAT 97
[2024-05-19 23:40] LABS: Add Manual Diff / Slide Review NO; Basophils Absolute Auto 0 /uL (0-100); Basophils Percent Auto 0.6 % (0-2); Eosinophils Absolute Auto 200 /uL (0-450); Eosinophils Percent Auto 2.9 % (2-4); Hematocrit 39.1 % (41-53); Hemoglobin 13.1 g/dL (13.5-17.5); Lymphocytes Absolute Auto 1300 /uL (1100-4500); Lymphocytes Percent Auto 17.5 % (25-40); Mean Corpuscular HGB Conc 33.4 % (30-36); Mean Corpuscular Hemoglobin 30.4 PG (26-34); Monocytes Absolute Auto 800 /uL (0-900); Monocytes Percent Auto 11.3 % (3-14); Neutrophils Absolute Auto 4900 /uL (1500-7000); Neutrophils Percent Auto 67.7 % (50-75); Platelet Count 263 X10^3/uL (150-400); Red Cell Distribution Width 14.2 % (11.6-14.8); White Blood Cell Count 7.3 X10^3/uL (4.5-11.0)
[2024-05-19 23:42] LABS: INR 2.3 (0.9-1.3); Prothrombin Time 26.9 SECONDS (9.4-12.5)
--- NOTE | 2024-05-19 23:44 | DI.CT.S_ITS ---
PROCEDURE: CT HEAD/BRAIN WO CON INDICATIONS: headache, blurred vision takes warfarin TECHNIQUE: Noncontrast 4.5 mm thick angled axial sections acquired from the foramen magnum to the vertex, with coronal and sagittal reformats. For radiation dose reduction, the following was used: automated exposure control, adjustment of mA and/or kV according to patient size. COMPARISON: [facility], CT, CT HEAD/BRAIN WO CON, 03/01/2024, 18:36. FINDINGS: Image quality: Diagnostic. CSF spaces: Basal cisterns are patent. No extra-axial fluid collections. The ventricles are symmetric in size and shape. Brain: No intracranial bleeds or masses. There is cerebral volume loss for age, with resultant ventricular and sulcal prominence. There are periventricular and deep white matter chronic small vessel ischemic changes. There is intracranial internal carotid artery atherosclerosis. Skull and face: Calvarium and visualized facial bones appear intact, without suspicious lesions. Sinuses: Visualized sinuses and mastoids are clear. IMPRESSION: No acute intracranial pathology. Approved by: Erika Altamirano M.D.,Ph.D. on 05/20/2024 at 0:33
[2024-05-19 23:45] LABS: PTT Partial Thromboplastin Tim 45 SECONDS (25.1-36.5)
[2024-05-19 23:46] LABS: Alanine Aminotransferase 27 IU/L (<50); Albumin 3.5 g/dL (3.5-5.0); Albumin Globulin Ratio 1.3 (1.0-2.8); Alkaline Phosphatase 78 U/L (38-126); Aspartate Aminotransferase 29 IU/L (17-59); BUN Creatinine Ratio 19.1 (6-22); Bilirubin Total 1.3 mg/dL (0.2-1.3); Blood Urea Nitrogen 21 mg/dL (9-20); Calcium 8.2 mg/dL (8.4-10.2); Carbon Dioxide 28 mmol/L (22-32); Chloride 106 mmol/L (98-107); Creatine Kinase 46 U/L (55-170); Estimated Glomerular Filt Rate > 60 mL/min (>60); Globulin 2.8 g/dL (1.7-4.1); Glucose 104 mg/dL (80-110); HEMOLYSIS 16 (0-50); Lipase 285 U/L (23-300); Magnesium 2.2 mg/dL (1.6-2.3); Potassium 4.5 mmol/L (3.4-5.1); Sodium 133 mmol/L (137-145); Total Protein 6.3 g/dL (6.3-8.2)
--- NOTE | 2024-05-19 23:50 | EKG_ITS ---
[address] [address] Test Date: 2024-05-19 Pat Name: Nestor Mercedes Department: Room: Gender: Male Transitions Manager: JACKIE : 1940 Requested By: Order Number: [id number] Reading MD: Lobo Menjiavr MD Measurements Intervals [place] Rate: 83 P: [place]: QRS: 8 QRSD: 88 T: 11 QT: 366 QTc: 430 Interpretive Statements Atrial fibrillation NO SIGNIFICANT CHANGE FROM PRIOR TRACING Electronically Signed On 05-20-2024 7:55:07 PDT by Lobo Menjivar MD
[2024-05-19 23:58] LABS: NT-proBNP (BNP-Adult 18+) 1910 pg/mL (<450); Troponin I < 0.012 ng/mL (0.01-0.034)
[2024-05-20] VITALS: BP 179/83; PULSE 80; RESP 24; O2SAT 98
[2024-05-20 00:12] VITALS: BP 193/91; PULSE 87; RESP 24; O2SAT 95
[2024-05-20 00:30] VITALS: PULSE 79; RESP 26; O2SAT 96
--- NOTE | 2024-05-20 00:40 | ED_ITS ---
HPI - General Adult General Chief complaint: Dizziness Stated complaint: Blurred vision, trouble walking, light headed Time Seen by Provider: 05/19/24 23:44 Source: patient Mode of arrival: Ambulatory History of Present Illness HPI narrative: 83-year-old male with ongoing dizziness for years, more recently he were given a pair of new prescription glasses [facility], which seems somewhat bothersome to you, often causing you to tear up in your eyes, unclear if this is the correct prescription, urine tending to see your ophthalmology specialist Dr. Shen in [place] but have not seen that provider yet. Some blurred vision after use of these new glasses. No double vision. History of macular degeneration on the right side noted. Related Data Home Medications Medication Instructions Recorded Confirmed multivitamin (Multiple Vitamins 1 tab PO DAILY ##0 03/06/13 04/04/24 tablet) cholecalciferol (vitamin D3) 50 2,000 unit PO DAILY #0 tabs 08/03/16 04/04/24 mcg (2,000 unit) tablet (Vitamin D3) Iron High Potency 27 mg PO DAILY 04/09/19 04/04/24 Ocuvite 30unit 5mg 150mg 1 cap PO DAILY 04/09/19 04/04/24 melatonin 10 mg tablet 10 mg PO BEDTIME PRN 01/25/23 04/04/24 metoprolol succinate 25 mg 50 mg PO DAILY 03/14/24 04/04/24 tablet,extended release 24 hr Previous Rx's Medication Instructions Recorded finasteride 5 mg tablet 5 mg PO Q OTHER DAY #45 tabs 01/31/24 warfarin 5 mg tablet See Rx Instructions .Route 01/31/24 .COMPLEX #108 tabs tamsulosin 0.4 mg capsule 0.4 mg PO BID #180 caps 02/02/24 atorvastatin 20 mg tablet 20 mg PO DAILY #30 tabs 03/13/24 Allergies Allergy/AdvReac Type Severity Reaction Status Date / Time No Known Drug Allergies Allergy Verified 04/04/24 13:54 Review of Systems Review of Systems Narrative: per HPI Patient History Medical History Orthostatic hypotension Blurry vision, bilateral Insomnia COVID-19 virus infection Elevated random blood glucose level Aortic stenosis, severe Anticoagulated on warfarin Physician orders for life-sustaining treatment (POLST) form indicates patient wish for [id number] status Benign prostatic hyperplasia with urinary obstruction Fatigue Erectile dysfunction History of elevated PSA Balance problem Left arm weakness Vitamin D deficiency Pelvic somatic dysfunction Segmental and somatic dysfunction of sacral region Segmental and somatic dysfunction of lumbar region Chronic bilateral low back pain without sciatica Somatic dysfunction of both lower extremities Foot stiffness Segmental and somatic dysfunction of thoracic region Segmental and somatic dysfunction of rib cage Cervical somatic dysfunction Cranial somatic dysfunction Diplopia Chronic atrial fibrillation (01/02/18) Essential hypertension (02/16/16) 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) Incomplete emptying of bladder (02/16/16) Atrial fibrillation with rapid ventricular response Surgical History Hx of cholecystectomy Status post cholecystectomy Family History Mother CVA (cerebral vascular accident) Father Diabetes mellitus Brother Renal failure Social History marital status: number of children: 1 household members: none occupational status: previously employed Previous occupational history: [employer] Smoking Status: Former smoker alcohol intake: former caffeine: Yes Smoking Status: Former smoker alcohol intake frequency: 0-2 drinks per day Substance Use Type: does not use Exam Narrative Exam Narrative: GENERAL: Well-developed patient, in mild distress. HEAD: Atraumatic. Normocephalic. EYES: Pupils equal round and reactive. Extraocular motions intact. No scleral icterus. No injection or drainage. ENT: Nose without bleeding, purulent drainage. Throat without erythema, tonsillar hypertrophy or exudate. Airway patent. NECK: Trachea midline. Non tender CARDIOVASCULAR: Regular rate and rhythm without murmurs, gallops, or rubs. RESPIRATORY: Clear to auscultation. Breath sounds equal bilaterally. No wheezes, rales, or rhonchi. GASTROINTESTINAL: Abdomen soft, non-tender, nondistended. EXTREMITIES: No edema or joint tenderness. BACK: Nontender without deformity or crepitance. No flank tenderness. NEURO: AOx3. No obvious visual field defects, no diplopia on horizontal and vertical testing. Pupils equal round reactive to light. Clear speech, no facial droop. Motor 5/5 upper and lower extremities. Blkdme-hy-xkep testing normal bilaterally. Intact sensation to light touch facial divisions, upper extremities, lower extremities. SKIN: No rash or erythema of visible areas Initial Vital Signs Initial Vital Signs: Vital Signs Pulse Rate 91 H 05/19/24 23:08 Pulse Oximetry 96 05/19/24 23:08 Course Orders Ordered: ED Orders 05/19/24 23:20 XR chest 1V Stat EKG-12 Lead Stat 05/19/24 23:28 Complete Blood Count AUTO DIFF Stat Comprehensive Metabolic Panel Stat Lipase Stat Magnesium Stat NT-proBNP (BNP-Adult 18+) Stat PTT Partial Thromboplastin Jerry Stat Prothrombin Time INR Stat Troponin & CK Cardiac Panel Stat 05/19/24 23:44 CT head/brain wo con Stat 05/19/24 23:50 EKG-12 Lead Routine Discontinued Medications Aspirin (Aspirin 81 Mg Chew Tab) 324 mg PO NOW ONE Stop: 05/19/24 23:20 Last Admin: 05/19/24 23:44 Dose: Not Given Documented By: SB Vital Signs Vital signs: Vital Signs - 8 hr 05/19/24 23:08 05/19/24 23:10 05/19/24 23:10 Temperature Pulse Rate 91 H 87 Respiratory Rate Blood Pressure 181/88 H Pulse Oximetry 96 98 Oxygen Delivery Method 05/19/24 23:11 05/19/24 23:30 05/19/24 23:31 Temperature 98.2 F Pulse Rate 81 86 83 Respiratory Rate 16 26 H 30 H Blood Pressure 181/88 H Pulse Oximetry 96 97 97 Oxygen Delivery Method Room Air 05/19/24 23:31 05/20/24 00:00 05/20/24 00:00 Temperature Pulse Rate 80 Respiratory Rate 24 Blood Pressure 160/92 H 179/83 H Pulse Oximetry 98 Oxygen Delivery Method Room Air 05/20/24 00:12 05/20/24 00:12 05/20/24 00:30 Temperature Pulse Rate 87 79 Respiratory Rate 24 26 H Blood Pressure 193/91 H Pulse Oximetry 95 96 Oxygen Delivery Method Room Air 05/20/24 00:43 05/20/24 00:43 05/20/24 01:00 Temperature Pulse Rate 80 Respiratory Rate 36 H Blood Pressure 180/92 H 155/98 H Pulse Oximetry 95 Oxygen Delivery Method 05/20/24 01:00 Temperature Pulse Rate 76 Respiratory Rate 22 Blood Pressure Pulse Oximetry 96 Oxygen Delivery Method Medical Decision Making Lab Data Lab results reviewed: Yes I reviewed the patient's lab results. 05/19/24 23:28 05/19/24 23:28 Labs: Lab Results 05/19/24 Range/Units 23:28 WBC 7.3 (4.5-11.0) X10^3/uL RBC 4.30 L (4.5-5.9) X10^6/uL Hgb 13.1 L (13.5-17.5) g/dL Hct 39.1 L (41-53) % MCV 91.0 (80-100) fL MCH 30.4 (26-34) PG MCHC 33.4 (30-36) % RDW 14.2 (11.6-14.8) % Plt Count 263 (150-400) X10^3/uL Neut % (Auto) 67.7 (50-75) % Lymph % (Auto) 17.5 L (25-40) % [place] % (Auto) 11.3 (3-14) % Eos % (Auto) 2.9 (2-4) % Baso % (Auto) 0.6 (0-2) % Neut # (Auto) 4900 (4382-9085) /uL Lymph # (Auto) 1300 (4740-0880) /uL [place] # (Auto) 800 (0-900) /uL Eos # (Auto) 200 (0-450) /uL Baso # (Auto) 0 (0-100) /uL PT 26.9 H (9.4-12.5) SECONDS INR 2.3 H (0.9-1.3) APTT 45 H (25.1-36.5) SECONDS Sodium 133 L (137-145) mmol/L Potassium 4.5 (3.4-5.1) mmol/L Chloride 106 (98-107) mmol/L Carbon Dioxide 28 (22-32) mmol/L BUN 21 H (9-20) mg/dL Creatinine 1.10 (0.66-1.25) mg/dL Estimated GFR > 60 (>60) mL/min BUN/Creatinine Ratio 19.1 (6-22) Glucose 104 (80-110) mg/dL Calcium 8.2 L (8.4-10.2) mg/dL Magnesium 2.2 (1.6-2.3) mg/dL Total Bilirubin 1.3 (0.2-1.3) mg/dL AST 29 (17-59) IU/L ALT 27 (<50) IU/L Alkaline Phosphatase 78 (38-126) U/L Total Creatine Kinase 46 L (55-170) U/L Troponin I < 0.012 (0.01-0.034) ng/mL NT-Pro-B Natriuret Pep 1910 H (<450) pg/mL Total Protein 6.3 (6.3-8.2) g/dL Albumin 3.5 (3.5-5.0) g/dL Globulin 2.8 (1.7-4.1) g/dL Albumin/Globulin Ratio 1.3 (1.0-2.8) Lipase 285 (23-300) U/L Imaging Data CT scan - head: Radiologist's Impression: [place] [address] CT Scan Report Signed Patient: Nestor Mercedes MR#: [id number] : 1940 Acct:[id number] Age/Sex: 83 / M Date of Service: 05/19/24 Loc: ED Accession Number: [id number] Procedure: CT head/brain wo con Ordering Provider: Lewis German MD PROCEDURE: CT HEAD/BRAIN WO CON INDICATIONS: headache, blurred vision takes warfarin TECHNIQUE: Noncontrast 4.5 mm thick angled axial sections acquired from the foramen magnum to the vertex, with coronal and sagittal reformats. For radiation dose reduction, the following was used: automated exposure control, adjustment of mA and/or kV according to patient size. COMPARISON: [facility], CT, CT HEAD/BRAIN WO CON, 03/01/2024, 18:36. FINDINGS: Image quality: Diagnostic. CSF spaces: Basal cisterns are patent. No extra-axial fluid collections. The ventricles are symmetric in size and shape. Brain: No intracranial bleeds or masses. There is cerebral volume loss for age, with resultant ventricular and sulcal prominence. There are periventricular and deep white matter chronic small vessel ischemic changes. There is intracranial internal carotid artery atherosclerosis. Skull and face: Calvarium and visualized facial bones appear intact, without suspicious lesions. Sinuses: Visualized sinuses and mastoids are clear. IMPRESSION: No acute intracranial pathology. Approved by: Erika Altamirano M.D.,Ph.D. on 05/20/2024 at 0:33 ECG Data Attestation: I personally reviewed and interpreted this ECG as follows: Interpretation: Atrial fibrillation with ventricular response rate 83, no obvious ST segment elevation or depression changes. T-wave inversion noted in lead 3, flat AVF, upright lead 2. QRS 88, QTC 423. MDM Narrative Medical decision making narrative: 83-year-old male with history of atrial fibrillation and chronic anticoagulation, complained of blurred vision bilateral eyes, history of right- sided macular degeneration, recently 1 week ago got a new prescription eyeglasses from [facility], he does not seem to be tolerating them, thinks that they make his eyes water, unclear if it is the correct prescription, awaiting follow up appointment with his sales program manager Dr. Shen in [place]. Dizziness is chronic, for many years, he says this is unchanged. No focal weakness. CT head ordered from triage, no acute changes. EKG shows atrial fibrillation with response rate 83. Troponin negative. Electrolytes unremarkable. Glucose was normal. Dizziness seems unchanged from his chronic problem, blurred vision maybe related to his new reading glasses prescription. Follow up with Ophthalmology as anticipated. Recheck with primary care provider in the next couple of days to review symptoms. Return precautions discussed. Discharged home, stable. Discharge Plan Departure Patient Disposition: Home Clinical Impression: Dizziness, Blurred vision Activity Restrictions/Additional Instructions: Chronic dizziness. Recent blurred vision, 1 week ago with a new prescription lens [facility] that does not seem to be tolerated very well, possible cause of the blurred vision. CT head scanning showed no acute changes. Electrolytes and blood glucose unremarkable. Consider follow up with your ophthalmology specialist Dr. Shen in [place]. Follow up with your regular provider regarding ongoing chronic dizziness, blood pressure control, and other chronic medical problem issues. Continue taking your chronic warfarin anticoagulation. Return to this/nearest emergency department for any change worsening symptoms or any concerns prior Prescriptions: No Action multivitamin [Multiple Vitamins] 1 EACH tablet 1 tab PO DAILY Qty: 0 cholecalciferol (vitamin D3) [Vitamin D3] 2,000 UNIT tablet 2,000 unit PO DAILY Qty: 0 finasteride 5 mg tablet 5 mg PO Q OTHER DAY Qty: 45 3RF warfarin 5 mg tablet See Rx Instructions .ROUTE .COMPLEX Qty: 108 3RF Dose Instruction: Take 1/2 tablet daily except on Tues and Sat take 1 or as directed by doctor ; Rx Instructions: Take 5mg Monday and Monday and 2.5mg all other days, or as directed. tamsulosin 0.4 mg capsule 0.4 mg PO BID Qty: 180 3RF Rx Instructions: 30 minutes following the same meal each day melatonin 10 mg tablet 10 mg PO BEDTIME PRN metoprolol succinate 25 mg tablet extended release 24 hr 50 mg PO DAILY atorvastatin 20 mg tablet 20 mg PO DAILY Qty: 30 11RF Iron High Potency 27 mg tablet 27 mg PO DAILY Patient Comments: Iron High Potency 240mg (27mg iron) Ocuvite 30unit 5mg 150mg 1 cap PO DAILY Referrals: Alejandro Pinto DO [Primary Care Provider] - Stand Alone Forms: Patient Portal/API
[2024-05-20 00:43] VITALS: BP 180/92; PULSE 80; RESP 36; O2SAT 95
[2024-05-20 01:00] VITALS: BP 155/98; PULSE 76; RESP 22; O2SAT 96
== END 2024-05-20 01:34 | disposition home or self-care (01) ==
PROVIDERS: Emergency Provider Emergency Medicine; Family Provider Family Medicine; PCP Family Medicine
DX: H53.8 Other visual disturbances (principal); R42 Dizziness and giddiness; I10 Essential (primary) hypertension; Z87.891 Personal history of nicotine dependence
CPT/HCPCS: 36415; 70450; 71045; 80053; 82550; 83690; 83735; 83880; 84484; 85025; 85610; 85730; 93005; 99284

== ENCOUNTER → 2024-05-21 08:38 | Outpatient (CLI) | payer MEDICARE, OTHER, SELFPAY ==
[2023-03-15 10:23] VITALS: BMI 23.5
[2024-05-21 10:06] LABS: Hematocrit 40.2 % (41-53); Hemoglobin 13.6 g/dL (13.5-17.5); Mean Corpuscular HGB Conc 33.8 % (30-36); Mean Corpuscular Hemoglobin 30.5 PG (26-34); Mean Corpuscular Volume 90.2 fL (80-100); Platelet Count 279 X10^3/uL (150-400); Red Blood Cell Count 4.46 X10^6/uL (4.5-5.9); Red Cell Distribution Width 14.5 % (11.6-14.8); White Blood Cell Count 7.5 X10^3/uL (4.5-11.0)
[2024-05-21 10:31] LABS: BUN Creatinine Ratio 17.4 (6-22); Blood Urea Nitrogen 20 mg/dL (9-20); Calcium 8.4 mg/dL (8.4-10.2); Carbon Dioxide 28 mmol/L (22-32); Chloride 103 mmol/L (98-107); Cholesterol 104 mg/dL (140-199); Estimated Glomerular Filt Rate > 60 mL/min (>60); Glucose 92 mg/dL (80-110); HDL Cholesterol 42 mg/dL (40-60); HEMOLYSIS < 15 (0-50); LDL Cholesterol Calculated 44 mg/dL (<100); Potassium 4.5 mmol/L (3.4-5.1); Sodium 135 mmol/L (137-145); Triglycerides 89 mg/dL (35-150)
== END ==
PROVIDERS: Family Provider Family Medicine; PCP Family Medicine; Referring Provider Internal Medicine Cardiovascular Disease; Visit Provider Internal Medicine Cardiovascular Disease
DX: E78.5 Hyperlipidemia, unspecified (principal); I10 Essential (primary) hypertension; Z79.01 Long term (current) use of anticoagulants
CPT/HCPCS: 36415; 80048; 80061; 85027

== ENCOUNTER 2024-06-05 10:48 | Emergency (ER) | payer MEDICARE, OTHER, SELFPAY ==
[2023-03-15 10:23] VITALS: BMI 23.5
[2024-06-05] VITALS (9 sets, daily range): BP systolic 140–171; BP diastolic 72–94; PULSE 71–89; RESP 14–24; TEMP 35.9; O2SAT 94–98; BMI 23.5
--- NOTE | 2024-06-05 11:13 | EKG_ITS ---
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
[2024-06-05 11:23] LABS: Add Manual Diff / Slide Review NO; Basophils Absolute Auto 0 /uL (0-100); Basophils Percent Auto 0.7 % (0-2); Eosinophils Absolute Auto 100 /uL (0-450); Eosinophils Percent Auto 1.6 % (2-4); Hematocrit 41.6 % (41-53); Hemoglobin 14.1 g/dL (13.5-17.5); Lymphocytes Absolute Auto 1000 /uL (1100-4500); Lymphocytes Percent Auto 13.4 % (25-40); Mean Corpuscular HGB Conc 33.8 % (30-36); Mean Corpuscular Hemoglobin 30.6 PG (26-34); Mean Corpuscular Volume 90.6 fL (80-100); Monocytes Absolute Auto 600 /uL (0-900); Monocytes Percent Auto 8.1 % (3-14); Neutrophils Absolute Auto 5600 /uL (1500-7000); Neutrophils Percent Auto 76.2 % (50-75); Platelet Count 292 X10^3/uL (150-400); White Blood Cell Count 7.4 X10^3/uL (4.5-11.0)
[2024-06-05 11:37] LABS: Alanine Aminotransferase 27 IU/L (<50); Albumin 3.9 g/dL (3.5-5.0); Albumin Globulin Ratio 1.4 (1.0-2.8); Alkaline Phosphatase 83 U/L (38-126); Aspartate Aminotransferase 26 IU/L (17-59); Blood Urea Nitrogen 17 mg/dL (9-20); Calcium 8.2 mg/dL (8.4-10.2); Carbon Dioxide 25 mmol/L (22-32); Chloride 104 mmol/L (98-107); Estimated Glomerular Filt Rate > 60 mL/min (>60); Globulin 2.8 g/dL (1.7-4.1); Glucose 92 mg/dL (80-110); HEMOLYSIS < 15 (0-50); Potassium 4.1 mmol/L (3.4-5.1); Sodium 135 mmol/L (137-145); Total Protein 6.7 g/dL (6.3-8.2)
--- NOTE | 2024-06-05 12:19 | ED_ITS ---
HPI - Neuro Symptoms/Deficit General Chief Complaint: Neuro Symptoms/Deficit Stated Complaint: tingling L arm, unsteady, blurred vision Time Seen by Provider: 06/05/24 11:06 Source: patient Mode of arrival: Ambulatory History of Present Illness HPI Narrative: 83-year-old male presents for evaluation of left arm tingling and right foot pain. Patient states that he noticed his symptoms when he woke up this morning. Patient has been seen multiple times in the emergency department for unsteady gait with negative workup. On Anticoagulants: Yes (coumadin) Related Data Home Medications Medication Instructions Recorded Confirmed multivitamin (Multiple Vitamins 1 tab PO DAILY ##0 03/06/13 05/31/24 tablet) cholecalciferol (vitamin D3) 50 2,000 unit PO DAILY #0 tabs 08/03/16 05/31/24 mcg (2,000 unit) tablet (Vitamin D3) Iron High Potency 27 mg PO DAILY 04/09/19 05/31/24 Ocuvite 30unit 5mg 150mg 1 cap PO DAILY 04/09/19 05/31/24 melatonin 10 mg tablet 10 mg PO BEDTIME PRN 01/25/23 05/31/24 metoprolol succinate 25 mg 50 mg PO BEDTIME 05/31/24 05/31/24 tablet,extended release 24 hr metoprolol succinate 50 mg 50 mg PO DAILY 05/31/24 05/31/24 tablet,extended release 24 hr pyridostigmine bromide 60 mg tablet 60 mg PO DAILY 05/31/24 05/31/24 Previous Rx's Medication Instructions Recorded finasteride 5 mg tablet 5 mg PO Q OTHER DAY #45 tabs 01/31/24 warfarin 5 mg tablet See Rx Instructions .Route 01/31/24 .COMPLEX #108 tabs tamsulosin 0.4 mg capsule 0.4 mg PO BID #180 caps 02/02/24 atorvastatin 20 mg tablet 20 mg PO DAILY #30 tabs 03/13/24 albuterol sulfate 90 mcg/actuation 2 puff inhalation Q6H PRN 05/31/24 aerosol inhaler shortness of breath or wheezing #8.5 grams Allergies Allergy/AdvReac Type Severity Reaction Status Date / Time No Known Drug Allergies Allergy Verified 06/05/24 11:02 Review of Systems Hematologic/Lymphatic On Anticoagulants: Yes (coumadin) Patient History Medical History Orthostatic hypotension Blurry vision, bilateral Insomnia COVID-19 virus infection Elevated random blood glucose level Aortic stenosis, severe Anticoagulated on warfarin Physician orders for life-sustaining treatment (POLST) form indicates patient wish for [id number]-[id number] status Benign prostatic hyperplasia with urinary obstruction Fatigue Erectile dysfunction History of elevated PSA Balance problem Left arm weakness Vitamin D deficiency Pelvic somatic dysfunction Segmental and somatic dysfunction of sacral region Segmental and somatic dysfunction of lumbar region Chronic bilateral low back pain without sciatica Somatic dysfunction of both lower extremities Foot stiffness Segmental and somatic dysfunction of thoracic region Segmental and somatic dysfunction of rib cage Cervical somatic dysfunction Cranial somatic dysfunction Diplopia Chronic atrial fibrillation (01/02/18) Essential hypertension (02/16/16) 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) Incomplete emptying of bladder (02/16/16) Atrial fibrillation with rapid ventricular response Surgical History Hx of cholecystectomy Status post cholecystectomy Family History Mother CVA (cerebral vascular accident) Father Diabetes mellitus Brother Renal failure Social History marital status: number of children: 1 household members: none occupational status: previously employed Previous occupational history: [employer] Smoking Status: Former smoker alcohol intake: former caffeine: Yes Smoking Status: Former smoker alcohol intake frequency: holidays/special occasions only Substance Use Type: does not use Exam Initial Vital Signs Initial Vital Signs: Vital Signs Temperature 96.7 F L 06/05/24 10:58 Pulse Rate 89 06/05/24 10:58 Respiratory Rate 14 06/05/24 10:58 Blood Pressure 171/94 H 06/05/24 10:58 Pulse Oximetry 96 06/05/24 10:58 Oxygen Delivery Method Room Air 06/05/24 10:58 Const: Awake, alert, frail Cardiac: Irregularly irregular rhythm RESP: unlabored, clear bilaterally, no wheezing Skin: Warm, Dry, intact, no rashes Neuro: AO x3, CN II-XII grossly intact, sensation intact and equal bilaterally, distal pulses intact in all 4 extremities Course Orders Ordered: ED Orders 06/05/24 11:12 CBC Auto Diff [Complete Blood Count AUTO DIFF] Stat CMP [Comprehensive Metabolic Panel] Stat Vital Signs Vital signs: Vital Signs - 8 hr 06/05/24 10:58 06/05/24 11:00 06/05/24 11:01 Temperature 96.7 F L Pulse Rate 89 Respiratory Rate 14 Blood Pressure 171/94 H 171/94 H Pulse Oximetry 96 94 Oxygen Delivery Method Room Air 06/05/24 11:01 06/05/24 11:30 06/05/24 11:33 Temperature Pulse Rate 87 80 Respiratory Rate 24 Blood Pressure 140/72 Pulse Oximetry 97 98 Oxygen Delivery Method 06/05/24 11:33 06/05/24 12:00 06/05/24 12:00 Temperature Pulse Rate 83 71 Respiratory Rate 22 19 Blood Pressure 155/85 H Pulse Oximetry 98 98 Oxygen Delivery Method 06/05/24 12:30 06/05/24 12:30 06/05/24 13:00 Temperature Pulse Rate 74 79 Respiratory Rate Blood Pressure 157/80 H Pulse Oximetry 98 98 Oxygen Delivery Method 06/05/24 13:01 06/05/24 13:01 Temperature Pulse Rate 78 Respiratory Rate Blood Pressure 170/75 H Pulse Oximetry 98 Oxygen Delivery Method MDM - Neuro Symptoms/Deficit Differential Diagnosis Differential diagnosis: Likely carpal tunnel syndrome, peripheral neuropathy and other Lab Data 06/05/24 11:12 06/05/24 11:12 Labs: Lab Results 06/05/24 Range/Units 11:12 WBC 7.4 (4.5-11.0) X10^3/uL RBC 4.60 (4.5-5.9) X10^6/uL Hgb 14.1 (13.5-17.5) g/dL Hct 41.6 (41-53) % MCV 90.6 (80-100) fL MCH 30.6 (26-34) PG MCHC 33.8 (30-36) % RDW 15.0 H (11.6-14.8) % Plt Count 292 (150-400) X10^3/uL Neut % (Auto) 76.2 H (50-75) % Lymph % (Auto) 13.4 L (25-40) % [place] % (Auto) 8.1 (3-14) % Eos % (Auto) 1.6 L (2-4) % Baso % (Auto) 0.7 (0-2) % Neut # (Auto) 5600 (7853-9857) /uL Lymph # (Auto) 1000 L (1035-7921) /uL [place] # (Auto) 600 (0-900) /uL Eos # (Auto) 100 (0-450) /uL Baso # (Auto) 0 (0-100) /uL Sodium 135 L (137-145) mmol/L Potassium 4.1 (3.4-5.1) mmol/L Chloride 104 (98-107) mmol/L Carbon Dioxide 25 (22-32) mmol/L BUN 17 (9-20) mg/dL Creatinine 1.13 (0.66-1.25) mg/dL Estimated GFR > 60 (>60) mL/min BUN/Creatinine Ratio 15.0 (6-22) Glucose 92 (80-110) mg/dL Calcium 8.2 L (8.4-10.2) mg/dL Total Bilirubin 2.0 H (0.2-1.3) mg/dL AST 26 (17-59) IU/L ALT 27 (<50) IU/L Alkaline Phosphatase 83 (38-126) U/L Total Protein 6.7 (6.3-8.2) g/dL Albumin 3.9 (3.5-5.0) g/dL Globulin 2.8 (1.7-4.1) g/dL Albumin/Globulin Ratio 1.4 (1.0-2.8) Urine Dip Bedside Urine Glucose Negative Bedside Urine Bilirubin - Negative Bedside Urine Ketone - Negative Urine Specific [place] 1.010 Bedside Urine Occult Blood - Negative Bedside Urine pH 6.5 Bedside Urine Protein - Negative Bedside Urine Urobilinogen - Negative Bedside Urine Nitrite - Negative Bedside Urine Leukocytes - Negative Esterase ECG Data Interpretation: Atrial fibrillation at 72 beats per minute. No ST T wave changes, no STEMI MDM Narrative Medical decision making narrative: Patient presenting for subjective tingling in his left upper extremity. On neurologic exam patient has intact and equal sensation in his upper and lower extremities. Laboratory work unremarkable. Patient states he is relieved, he was concerned that he may be suffering a stroke, but is happy to know that his exam today is normal. He declined x-ray imaging of his foot, stating he thinks that he may just have slept incorrectly. Patient counseled to follow up with his primary care doctor. Discharge Plan Departure Patient Disposition: Home Clinical Impression: Tingling Instructions: DI for Numbness/Tingling Activity Restrictions/Additional Instructions: Your laboratory work today was normal for you and your exam does not indicate that you have had or are going to have a stroke. Follow up as needed with your primary care doctor. Continue to take all of your medications as prescribed Prescriptions: No Action multivitamin [Multiple Vitamins] 1 EACH tablet 1 tab PO DAILY Qty: 0 cholecalciferol (vitamin D3) [Vitamin D3] 2,000 UNIT tablet 2,000 unit PO DAILY Qty: 0 finasteride 5 mg tablet 5 mg PO Q OTHER DAY Qty: 45 3RF warfarin 5 mg tablet See Rx Instructions .ROUTE .COMPLEX Qty: 108 3RF Dose Instruction: Take 1/2 tablet daily except on and Mon take 1 or as directed by doctor ; Rx Instructions: Take 5mg Monday and Monday and 2.5mg all other days, or as directed. tamsulosin 0.4 mg capsule 0.4 mg PO BID Qty: 180 3RF Rx Instructions: 30 minutes following the same meal each day melatonin 10 mg tablet 10 mg PO BEDTIME PRN metoprolol succinate 25 mg tablet extended release 24 hr 50 mg PO BEDTIME atorvastatin 20 mg tablet 20 mg PO DAILY Qty: 30 11RF Iron High Potency 27 mg tablet 27 mg PO DAILY Patient Comments: Iron High Potency 240mg (27mg iron) Ocuvite 30unit 5mg 150mg 1 cap PO DAILY pyridostigmine bromide 60 mg tablet 60 mg PO DAILY metoprolol succinate 50 mg tablet extended release 24 hr 50 mg PO DAILY albuterol sulfate 90 mcg/actuation HFA aerosol inhaler 2 puff inhalation Q6H PRN (Reason: shortness of breath or wheezing) Qty: 8.5 6RF Referrals: Alejandro Pinto DO [Primary Care Provider] - Stand Alone Forms: Patient Portal/API
--- NOTE | 2024-06-05 12:26 | PC.NURSE ---
Pt states his forehead feels warm, denies temp at home. States sore feet.
== END 2024-06-05 13:07 | disposition home or self-care (01) ==
PROVIDERS: Emergency Provider Emergency Medicine; Family Provider Family Medicine; PCP Family Medicine
DX: R20.2 Paresthesia of skin (principal); I48.91 Unspecified atrial fibrillation; Z79.01 Long term (current) use of anticoagulants
CPT/HCPCS: 36415; 80053; 81003; 85025; 93005; 99283; 99284

== ENCOUNTER → 2024-06-12 11:33 | Outpatient (CLI) | payer MEDICARE, OTHER, SELFPAY ==
[2023-03-15 10:23] VITALS: BMI 23.5
--- NOTE | 2024-06-12 11:34 | DI.CT.S_ITS ---
PROCEDURE: CT CHEST HIGH RESOLUTION INDICATIONS: asbestos TECHNIQUE: Noncontrast 1.0 and 5.0 mm thick contiguous axial sections from the pulmonary apex to the posterior costophrenic angles, with 7 mm thick coronal and sagittal MIP reformats. 1 mm thick dynamic expiratory images acquired through the upper, mid, and lower lungs. 1.0 mm thick axial sections acquired from the tasha to the posterior costophrenic angles in the prone end-inspiration position. For radiation dose reduction, the following was used: automated exposure control, adjustment of mA and/or kV according to patient size. COMPARISON: [facility], CT, CHEST HIGH RESOLUTION, 01/28/2014, 11:14. FINDINGS: Image quality: Diagnostic. Lower Neck: No enlarged lymph nodes. Thyroid: No thyroid nodules which require sonographic follow up, per consensus guidelines. Axillae: No enlarged lymph nodes. Chest Wall: Gynecomastia. Bones: Unremarkable. Lungs and Pleura: Calcified pleural plaque without nodularity. There is peripheral reticulation with some degree of consolidation in the lower lobes. Loculated fluid within the right major fissure. Scattered pulmonary micro nodules, not definitely seen on the prior CT. Index nodule measures 2 millimeters in the left upper lobe (series 8, image 94). Scattered air trapping. Heart: Cardiomegaly. Three-vessel coronary artery calcifications. Thoracic Vessels: Mild ascending aortic aneurysm measuring 4.3 centimeter. Mediastinum and Zenaida: No enlarged lymph nodes. Esophagus: No wall thickening. Moderate hiatal hernia. Upper Abdomen: Visualized upper abdomen solid organs and bowel loops appear normal. IMPRESSION: Calcified pleural plaque without soft tissue nodularity. Basilar predominant reticulation with small degree of subpleural consolidation. Findings probably represent scarring related to prior asbestosis exposure. Short-term follow-up (3 months) with low-dose chest CT should be considered to establish chronicity. Small amount a loculated right-sided pleural effusion. Scattered solid pulmonary micro nodules, not clearly identified on comparison CT. Consider 12 month follow-up with low-dose chest CT. Mild aneurysm of the ascending aorta. Consider 12 month follow-up. Dictated by: Greg Leggett M.D. on 06/13/2024 at 12:26 Approved by: Greg Leggett M.D. on 06/13/2024 at 12:36
== END ==
PROVIDERS: Family Provider Family Medicine; PCP Family Medicine; Referring Provider Internal Medicine Critical Care Medicine; Visit Provider Internal Medicine Critical Care Medicine
DX: J61 Pneumoconiosis due to asbestos and other mineral fibers (principal); J90 Pleural effusion, not elsewhere classified; I71.21 Aneurysm of the ascending aorta, without rupture; R91.8 Other nonspecific abnormal finding of lung field; I25.10 Atherosclerotic heart disease of native coronary artery without angina pectoris; K44.9 Diaphragmatic hernia without obstruction or gangrene
CPT/HCPCS: 71250

== ENCOUNTER → 2024-06-14 07:39 | Outpatient (CLI) | payer MEDICARE, OTHER, SELFPAY ==
[2023-03-15 10:23] VITALS: BMI 23.5
--- NOTE | 2024-06-14 07:41 | DI.ECHO.S_ITS ---
[facility] : : [address] : [place] : : [id number] : : Phone: [phone] Echocardiogram Report + + :Name: DOMINIC AGUILAR Study Date: 06/14/2024 Height: 73 in : :Hospital ReadingLocation: Weight: 177 lb : : Gender: Male BSA: 2.0 m2 : :: 1940 Age: 83 yrs BP: 121/76 mmHg: :Reason For Study: AORTIC VALVE STENOSIS : :Ordering Physician: YONIS, : :REJI Performed By: Bboby Nava : :Referring: REJI GRANT : + + Interpretation Summary 1) Normal left ventricular size, wall motion, and systolic function (EF 55- 60%). 2) Mildly enlarged right ventricle with mildly reduced function. 3) The left atrium is severely dilated. 4) There is calcific moderate aortic stenosis (valve area 1cm2, mean gradient 22mmHg, severity ratio 0.28). 5) Compared to the Echo done 10/11/2023, no significant change. Procedure: A two-dimensional transthoracic echocardiogram with color flow and Doppler was performed. The study quality was technically adequate. Comparison is made with the echocardiogram of 10/11/2023. The patient was in atrial fibrillation with heart rates between 63-88 bpm during the exam. Left Ventricle: The left ventricle is normal in size. Left ventricular wall thickness is borderline increased. The ejection fraction is estimated to be 55-60%. Left ventricular systolic function appears normal without focal wall motion abnormalities. Diastolic parameters suggest a relaxation abnormality of the left ventricle, consistent with probable normal filling pressures. Right Ventricle: The right ventricle is mildly dilated. Right ventricular systolic function is mildly reduced. Atria: The left atrium is severely dilated. The right atrium is moderately dilated. The interatrial septum grossly appears intact with no obvious evidence for an atrial septal defect. Mitral Valve: The mitral valve is grossly normal. MAC. There is no mitral valve stenosis. There is mild mitral regurgitation. Aortic Valve: The aortic valve is heavily calcified. The aortic valve is trileaflet. There is moderate aortic stenosis. The peak aortic velocity is 3.10 m/sec. The aortic valve mean gradient is 22.0 mmHg. There is trace aortic regurgitation. Tricuspid Valve: The tricuspid valve is normal. There is no tricuspid stenosis. There is mild tricuspid regurgitation. The right ventricular systolic pressure is estimated to be at least 40.7 mmHg based on an estimated right atrial pressure of 8 mm Hg. Pulmonic Valve: The pulmonic valve is not well visualized. There is no pulmonic valvular stenosis. There is no pulmonic valvular regurgitation. Great Vessels: The aortic root is normal size. The ascending aorta is mildly enlarged. The IVC is dilated (diameter is greater than 2.1 cm) yet it collapses greater than 50% with a sniff. This suggests a right atrial pressure of 8 mm Hg. Pericardium/ Pleura There is no pericardial effusion. There is no pleural effusion. MMode/2D Measurements & Calculations LVIDd: 3.4 cm LVOT diam: 2.1 cm LVIDs: 2.8 cm Ao root diam: 3.6 cm FS: 17.9 % asc Aorta Diam: 4.0 cm IVSd: 1.3 cm LVPWd: 1.1 cm LV whitaker. diameter/BSA (cm/m^2): 1.6 LV sys. diameter/BSA (cm/m^2): 1.4 LA A2 area: 32.1 cm2 RA long axis: 7.0 cm LA A4 area: 35.2 cm2 RA area: 30.4 cm2 LA length (vol): 7.1 cm RA vol: 112.6 ml LA vol: 135.9 ml RA : 55.1 ml/m2 LA vol index: 66.5 ml/m2 IVC diam: 2.4 cm RVD1 (basal): 4.3 cm RVD2 (mid): 4.2 cm TAPSE: 1.9 cm Doppler Measurements & Calculations Ao V2 max: 309.8 cm/sec LVOT Max Lazaro: 86.3 cm/sec Ao V2 mean: 217.6 cm/sec LV V1 max P.0 mmHg Ao max P.4 mmHg LV V1 VTI: 19.3 cm Ao mean P.0 mmHg CIERRA(I,D): 0.97 cm2 Ao V2 VTI: 68.3 cm CIERRA(V,D): 0.96 cm2 sev ratio: 0.28 CIERRA indexed to BSA (cm^2/m^2): 0.48 MV E max lazaro: 100.6 cm/sec TR max lazaro: 286.1 cm/sec MV A max lazaro: 13.4 cm/sec TR max P.7 mmHg MV E/A: 7.5 PA V2 max: 88.7 cm/sec Med Peak E' Lazaro: 9.5 cm/sec PA V2 mean: 63.8 cm/sec E/E' med: 10.6 PA mean P.9 mmHg Lat Peak E' Lazaro: 10.2 cm/sec CARLA pr(Accel): 41.3 mmHg E/E' lat: 9.8 E/e' average: 10.2 MV dec time: 0.13 sec SV(LVOT): 66.6 ml Reading Physician:05:55 PM
== END ==
PROVIDERS: Family Provider Family Medicine; PCP Family Medicine; Referring Provider Internal Medicine Cardiovascular Disease; Visit Provider Internal Medicine Cardiovascular Disease
DX: I08.3 Combined rheumatic disorders of mitral, aortic and tricuspid valves (principal)
CPT/HCPCS: 93306

== ENCOUNTER 2024-07-27 20:41 | Emergency (ER) | payer MEDICARE, OTHER, SELFPAY ==
[2023-03-15 10:23] VITALS: BMI 23.5
[2024-07-27] VITALS (8 sets, daily range): BP systolic 147–163; BP diastolic 76–88; PULSE 73–87; RESP 14–24; TEMP 36.4; O2SAT 96–98; BMI 23.6
--- NOTE | 2024-07-27 21:03 | EKG_ITS ---
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
[2024-07-27 22:13] LABS: Add Manual Diff / Slide Review NO; Basophils Absolute Auto 0 /uL (0-100); Basophils Percent Auto 0.4 % (0-2); Eosinophils Absolute Auto 200 /uL (0-450); Eosinophils Percent Auto 3.1 % (2-4); Hematocrit 40.8 % (41-53); Hemoglobin 13.5 g/dL (13.5-17.5); Lymphocytes Absolute Auto 1000 /uL (1100-4500); Lymphocytes Percent Auto 14.1 % (25-40); Mean Corpuscular Volume 91.1 fL (80-100); Monocytes Absolute Auto 600 /uL (0-900); Monocytes Percent Auto 9.2 % (3-14); Neutrophils Absolute Auto 5100 /uL (1500-7000); Neutrophils Percent Auto 73.2 % (50-75); Platelet Count 274 X10^3/uL (150-400); Red Blood Cell Count 4.48 X10^6/uL (4.5-5.9); Red Cell Distribution Width 14.7 % (11.6-14.8); White Blood Cell Count 6.9 X10^3/uL (4.5-11.0)
[2024-07-27 22:18] LABS: Alanine Aminotransferase 28 IU/L (<50); Albumin 3.3 g/dL (3.5-5.0); Albumin Globulin Ratio 1.1 (1.0-2.8); Alkaline Phosphatase 87 U/L (38-126); Aspartate Aminotransferase 29 IU/L (17-59); BUN Creatinine Ratio 23.7 (6-22); Bilirubin Total 1.7 mg/dL (0.2-1.3); Blood Urea Nitrogen 23 mg/dL (9-20); Calcium 8.6 mg/dL (8.4-10.2); Carbon Dioxide 25 mmol/L (22-32); Chloride 105 mmol/L (98-107); Estimated Glomerular Filt Rate > 60 mL/min (>60); Globulin 2.9 g/dL (1.7-4.1); Glucose 112 mg/dL (80-110); HEMOLYSIS < 15 (0-50); Lipase 262 U/L (23-300); Sodium 133 mmol/L (137-145); Total Protein 6.2 g/dL (6.3-8.2)
--- NOTE | 2024-07-27 22:36 | ED.GENADULT ---
HPI - General Adult General Chief complaint: Dizziness Stated complaint: lightheaded, stumbling, blurry vision Time Seen by Provider: 07/27/24 20:56 Source: patient Mode of arrival: Wheelchair History of Present Illness HPI narrative: Patient is a 84-year-old male has been dealing with balance issues for quite some time. Has seen his primary doctor. Has been in to see Neurology. He has also been into see physical therapy. He does have exercises then he has been using for balance. He comes emergency department today because of the continued balance. Thought that it was somewhat worse today. Also said that he would some blurry vision. He states he has been unable to get in to see his eye doctor. His symptoms have really been worsening over the past couple days. Denies headache or chest pain or palpitations. He has been taking all of his medications as directed. Related Data Home Medications Medication Instructions Recorded Confirmed multivitamin (Multiple Vitamins 1 tab PO DAILY ##0 03/06/07/23/24 tablet) cholecalciferol (vitamin D3) 50 2,000 unit PO DAILY #0 tabs 08/03/16 07/23/24 mcg (2,000 unit) tablet (Vitamin D3) Iron High Potency 27 mg PO DAILY 04/09/19 07/23/24 Ocuvite 30unit 5mg 150mg 1 cap PO DAILY 04/09/19 07/23/24 melatonin 10 mg tablet 10 mg PO BEDTIME PRN 01/25/23 07/23/24 metoprolol succinate 25 mg 50 mg PO BEDTIME 05/31/24 07/23/24 tablet,extended release 24 hr metoprolol succinate 50 mg 50 mg PO DAILY 05/31/24 07/23/24 tablet,extended release 24 hr pyridostigmine bromide 60 mg tablet 60 mg PO DAILY 05/31/24 07/23/24 Previous Rx's Medication Instructions Recorded finasteride 5 mg tablet 5 mg PO Q OTHER DAY #45 tabs 01/31/24 warfarin 5 mg tablet See Rx Instructions .Route 01/31/24 .COMPLEX #108 tabs tamsulosin 0.4 mg capsule 0.4 mg PO BID #180 caps 02/02/24 atorvastatin 20 mg tablet 20 mg PO DAILY #30 tabs 03/13/24 albuterol sulfate 90 mcg/actuation 2 puff inhalation Q6H PRN 05/31/24 aerosol inhaler shortness of breath or wheezing #8.5 grams Allergies Allergy/AdvReac Type Severity Reaction Status Date / Time No Known Drug Allergies Allergy Verified 07/23/24 08:35 Review of Systems Review of Systems ROS Unobtainable: All systems reviewed & are unremarkable except as noted in HPI and below Patient History Medical History Anxiety about health Foot joint stiffness, bilateral Orthostatic hypotension Blurry vision, bilateral Insomnia COVID-19 virus infection Elevated random blood glucose level Aortic stenosis, severe Anticoagulated on warfarin Physician orders for life-sustaining treatment (POLST) form indicates patient wish for [id number]-yuptoinjihf status Benign prostatic hyperplasia with urinary obstruction Fatigue Erectile dysfunction History of elevated PSA Balance problem Left arm weakness Vitamin D deficiency Pelvic somatic dysfunction Segmental and somatic dysfunction of sacral region Segmental and somatic dysfunction of lumbar region Chronic bilateral low back pain without sciatica Somatic dysfunction of both lower extremities Foot stiffness Segmental and somatic dysfunction of thoracic region Segmental and somatic dysfunction of rib cage Cervical somatic dysfunction Cranial somatic dysfunction Diplopia Chronic atrial fibrillation (01/02/18) Essential hypertension (02/16/16) 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) Incomplete emptying of bladder (02/16/16) Atrial fibrillation with rapid ventricular response Surgical History Hx of cholecystectomy Status post cholecystectomy Family History Mother CVA (cerebral vascular accident) Father Diabetes mellitus Brother Renal failure Social History marital status: number of children: 1 household members: none occupational status: previously employed Previous occupational history: [employer] Smoking Status: Former smoker alcohol intake: former caffeine: Yes Smoking Status: Former smoker alcohol intake frequency: holidays/special occasions only Substance Use Type: does not use Exam Initial Vital Signs Initial Vital Signs: Vital Signs Temperature 97.5 F L 07/27/24 20:46 Pulse Rate 83 07/27/24 20:46 Respiratory Rate 20 07/27/24 20:46 Blood Pressure 148/80 H 07/27/24 20:46 Pulse Oximetry 98 07/27/24 20:46 Oxygen Delivery Method Room Air 07/27/24 20:46 Const General: cooperative, comfortable and No ill appearing HENNH Head: normal to inspection and normocephalic Resp Effort & Inspection: normal respiratory effort Auscultation: clear to auscultation bilaterally Cardio Rate: regular rate Rhythm: regular rhythm Heart Sounds: murmur Skin General: no rashes or lesions noted Neuro General: patient alert, patient awake and moves all extremities Course Orders Ordered: ED Orders 07/27/24 20:52 EKG-12 Lead Stat 07/27/24 21:35 Complete Blood Count AUTO DIFF Stat Comprehensive Metabolic Panel Stat Lipase Stat 07/27/24 22:10 Covid-19 + FLU A/B + RSV - PCR Stat Vital Signs Vital signs: Vital Signs - 8 hr 07/27/24 20:46 07/27/24 21:02 07/27/24 21:03 Temperature 97.5 F L Pulse Rate 83 79 Respiratory Rate 20 24 Blood Pressure 148/80 H 163/88 H Pulse Oximetry 98 98 Oxygen Delivery Method Room Air 07/27/24 21:03 07/27/24 21:30 07/27/24 21:30 Temperature Pulse Rate 84 87 Respiratory Rate 23 20 Blood Pressure 156/76 H Pulse Oximetry 98 98 Oxygen Delivery Method 07/27/24 22:00 07/27/24 22:00 07/27/24 22:30 Temperature Pulse Rate 79 Respiratory Rate 14 Blood Pressure 147/82 H 154/82 H Pulse Oximetry 96 Oxygen Delivery Method 07/27/24 22:30 07/27/24 23:00 07/27/24 23:00 Temperature Pulse Rate 73 76 Respiratory Rate 21 19 Blood Pressure 155/85 H Pulse Oximetry 96 97 Oxygen Delivery Method Room Air 07/27/24 23:30 07/27/24 23:30 07/28/24 00:00 Temperature Pulse Rate 77 Respiratory Rate 19 Blood Pressure 153/84 H 147/85 H Pulse Oximetry 96 Oxygen Delivery Method 07/28/24 00:00 Temperature Pulse Rate 78 Respiratory Rate 17 Blood Pressure Pulse Oximetry 97 Oxygen Delivery Method Medical Decision Making Medical Records Medical records reviewed: Yes I reviewed the patient's medical records. Lab Data Lab results reviewed: Yes I reviewed the patient's lab results. 07/27/24 21:35 07/27/24 21:35 Labs: Lab Results 07/27/24 07/27/24 Range/Units 21:35 22:10 WBC 6.9 (4.5-11.0) X10^3/uL RBC 4.48 L (4.5-5.9) X10^6/uL Hgb 13.5 (13.5-17.5) g/dL Hct 40.8 L (41-53) % MCV 91.1 (80-100) fL MCH 30.0 (26-34) PG MCHC 33.0 (30-36) % RDW 14.7 (11.6-14.8) % Plt Count 274 (150-400) X10^3/uL Neut % (Auto) 73.2 (50-75) % Lymph % (Auto) 14.1 L (25-40) % [place] % (Auto) 9.2 (3-14) % Eos % (Auto) 3.1 (2-4) % Baso % (Auto) 0.4 (0-2) % Neut # (Auto) 5100 (6597-1954) /uL Lymph # (Auto) 1000 L (6829-6735) /uL [place] # (Auto) 600 (0-900) /uL Eos # (Auto) 200 (0-450) /uL Baso # (Auto) 0 (0-100) /uL Sodium 133 L (137-145) mmol/L Potassium 4.0 (3.4-5.1) mmol/L Chloride 105 (98-107) mmol/L Carbon Dioxide 25 (22-32) mmol/L BUN 23 H (9-20) mg/dL Creatinine 0.97 (0.66-1.25) mg/dL Estimated GFR > 60 (>60) mL/min BUN/Creatinine Ratio 23.7 H (6-22) Glucose 112 H (80-110) mg/dL Calcium 8.6 (8.4-10.2) mg/dL Total Bilirubin 1.7 H (0.2-1.3) mg/dL AST 29 (17-59) IU/L ALT 28 (<50) IU/L Alkaline Phosphatase 87 (38-126) U/L Total Protein 6.2 L (6.3-8.2) g/dL Albumin 3.3 L (3.5-5.0) g/dL Globulin 2.9 (1.7-4.1) g/dL Albumin/Globulin Ratio 1.1 (1.0-2.8) Lipase 262 (23-300) U/L SARS-CoV-2 (PCR) Negative (Negative) Influenza A (RT-PCR) Flu a negative (NEGATIVE) Influenza B (RT-PCR) Flu b negative (NEGATIVE) RSV (PCR) Negative (Negative) ECG Data Attestation: I personally reviewed and interpreted this ECG as follows: Interpretation: Atrial fibrillation Ventricular rate of [address] T wave changes MDM Narrative Medical decision making narrative: Patient has been dealing with the episodic lightheadedness for some time now. He was had multiple workups without a definitive diagnosis. His workup here in the emergency department today is relatively unremarkable. Low suspicion for CVA/TIA. 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 No indication for admission to the hospital. Recommended that he follow-up with his primary doctor. He was given return precautions. He expressed understanding and agreement. Discharge Plan Departure Patient Disposition: Home Clinical Impression: Episodic lightheadedness Instructions: DI for Dizziness-Nonvertigo Activity Restrictions/Additional Instructions: Recommend that you continue to take all of your medications as directed. Contact your primary care doctor for a follow-up. Return to the emergency department for new or worsening symptoms. Prescriptions: No Action multivitamin [Multiple Vitamins] 1 EACH tablet 1 tab PO DAILY Qty: 0 cholecalciferol (vitamin D3) [Vitamin D3] 2,000 UNIT tablet 2,000 unit PO DAILY Qty: 0 finasteride 5 mg tablet 5 mg PO Q OTHER DAY Qty: 45 3RF warfarin 5 mg tablet See Rx Instructions .ROUTE .COMPLEX Qty: 108 3RF Dose Instruction: Take 1/2 tablet daily except on and Mon take 1 or as directed by doctor ; Rx Instructions: Take 5mg Monday and Monday and 2.5mg all other days, or as directed. tamsulosin 0.4 mg capsule 0.4 mg PO BID Qty: 180 3RF Rx Instructions: 30 minutes following the same meal each day melatonin 10 mg tablet 10 mg PO BEDTIME PRN metoprolol succinate 25 mg tablet extended release 24 hr 50 mg PO BEDTIME atorvastatin 20 mg tablet 20 mg PO DAILY Qty: 30 11RF Iron High Potency 27 mg tablet 27 mg PO DAILY Patient Comments: Iron High Potency 240mg (27mg iron) Ocuvite 30unit 5mg 150mg 1 cap PO DAILY pyridostigmine bromide 60 mg tablet 60 mg PO DAILY metoprolol succinate 50 mg tablet extended release 24 hr 50 mg PO DAILY albuterol sulfate 90 mcg/actuation HFA aerosol inhaler 2 puff inhalation Q6H PRN (Reason: shortness of breath or wheezing) Qty: 8.5 6RF Referrals: Alejandro Pinto DO [Primary Care Provider] - Stand Alone Forms: Patient Portal/API
[2024-07-27 22:52] LABS: Influenza A - CEPHEID Flu A NEGATIVE (NEGATIVE); Influenza B - CEPHEID Flu B NEGATIVE (NEGATIVE); Respiratory Syncytial Virus Negative (Negative)
[2024-07-27 23:10] LABS: COVID-19 CEPHEID 4-PLEX PCR Negative (Negative)
[2024-07-28] VITALS: BP 147/85; PULSE 78; RESP 17; O2SAT 97
== END 2024-07-28 00:30 | disposition home or self-care (01) ==
PROVIDERS: Emergency Provider Emergency Medicine; Family Provider Family Medicine; PCP Family Medicine
DX: R42 Dizziness and giddiness (principal); H53.8 Other visual disturbances; Z11.52 Encounter for screening for COVID-19; Z79.01 Long term (current) use of anticoagulants; I48.91 Unspecified atrial fibrillation
CPT/HCPCS: 0241U; 36415; 80053; 83690; 85025; 93005; 99283; 99284

== ENCOUNTER 2024-09-14 16:28 | Emergency (ER) | payer MEDICARE, OTHER, SELFPAY ==
[2023-03-15 10:23] VITALS: BMI 23.5
[2024-09-14 16:35] VITALS: PULSE 91
--- NOTE | 2024-09-14 16:35 | EKG_ITS ---
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
--- NOTE | 2024-09-14 16:35 | DI.CT.S_ITS ---
PROCEDURE: CT STROKE INDICATIONS: Positive BE-FAST, Stroke symptoms TECHNIQUE: Noncontrast 4.5 mm thick angled axial sections acquired from the foramen magnum to the vertex, with coronal reformats. For radiation dose reduction, the following was used: automated exposure control, adjustment of mA and/or kV according to patient size. COMPARISON: [facility], CT, CT HEAD/BRAIN WO CON, 05/20/2024, 0:11. [facility], CT, CT STROKE, 06/28/2021, 13:55. FINDINGS: Image quality: Mild streak artifact can be seen through the skull base. CSF spaces: Basal cisterns are patent. No extra-axial fluid collections. The ventricles are symmetric in size and shape. Brain: No intracranial bleeds or masses. There is cerebral volume loss for age, with resultant ventricular and sulcal prominence. There are periventricular and deep white matter chronic small vessel ischemic changes. There is intracranial internal carotid artery atherosclerosis. Skull and face: Calvarium and visualized facial bones appear intact, without suspicious lesions. Sinuses: Visualized sinuses and mastoids are clear. IMPRESSION: No acute intracranial pathology. No acute intracranial hemorrhage is seen. Note: Case discussed by telephone with Dr. Wick at 4:53 p.m. Grace time on September 14, 2024. This study fulfills neurological imaging criteria for inclusion or exclusion of acute stroke therapies based on available published neurological guidelines. Dictated by: Rafal Jackson M.D. on 09/14/2024 at 15:52 Approved by: Rafal Jackson M.D. on 09/14/2024 at 15:53
--- NOTE | 2024-09-14 16:35 | DI.RAD.S_ITS ---
PROCEDURE: XR CHEST 1V INDICATIONS: Possible stroke TECHNIQUE: One view of the chest was acquired. COMPARISON: [facility], CT, CT ANGIO HEAD AND NECK, 09/14/2024, 16:46. [facility], CT, CT STROKE, 09/14/2024, 16:41. [facility], CR, XR CHEST 1V, 05/19/2024, 23:24. FINDINGS: Surgical changes and devices: None. Lungs and pleura: On this semiupright portable chest examination, no large pneumothorax or large pleural effusions are seen. No focal infiltrates are seen. Mild generalized interstitial prominence can be seen. Mediastinum: Mediastinal contours appear normal. Heart size is mildly enlarged. Bones and chest wall: No suspicious bony lesions. Age-appropriate bony degenerative changes are seen. Overlying soft tissues appear unremarkable. IMPRESSION: Cardiomegaly with mild generalized interstitial prominence and potential pleural effusions. Please consider CHF. Dictated by: Rafal Jackson M.D. on 09/14/2024 at 16:07 Approved by: Rafal Jackson M.D. on 09/14/2024 at 16:08
[2024-09-14 16:36] VITALS: BP 180/94; PULSE 88; RESP 23; O2SAT 97
[2024-09-14 16:38] VITALS: BP 180/94; PULSE 86; RESP 17; TEMP 36.6; O2SAT 98; BMI 23.6
--- NOTE | 2024-09-14 16:38 | DI.CT.S_ITS ---
PROCEDURE: CT ANGIO HEAD AND NECK INDICATIONS: double vision headach on warfarin TECHNIQUE: After the administration of intravenous contrast, 1 mm thick sections acquired from the aortic arch through the [place] of [place]. 3-dimensional rnngpua-iahqmgucq-nnfgzbnpwc (MIP) and/or volume rendering reformats were acquired of the central intracranial vasculature and neck separately. For radiation dose reduction, the following was used: automated exposure control, adjustment of mA and/or kV according to patient size. COMPARISON: [facility], CT, CT STROKE, 09/14/2024, 16:41. [facility], CT, CT ANGIO HEAD AND NECK, 03/14/2023, 5:18. FINDINGS: Image quality: Limited by bolus timing, with venous contamination. BRAIN: CSF spaces: Ventricles are normal in size and shape. Basal cisterns are patent. No extra-axial fluid collections. Brain: No significant abnormality of the brain can be seen. Skull and face: Calvarium and facial bones appear intact, without suspicious lesions. Orbits appear normal. Sinuses: Moderate patchy paranasal sinus disease can be seen. No abnormal fluid is seen within the mastoid air cells. HEAD CT ANGIOGRAPHY: Anterior circulation: Intracranial internal carotid arteries are normal in size and flow. The flow within the paired anterior cerebral arteries is normal and symmetric. The flow within the middle cerebral arteries is normal and symmetric. The anterior communicating artery is seen. No aneurysms are seen. Posterior circulation: Visualized portions of the vertebral arteries demonstrate normal caliber, and join to form a normal appearing basilar artery. Flow within the posterior cerebral arteries is normal and symmetric. No aneurysms are seen. NECK CT ANGIOGRAPHY: Carotid system: The great vessels demonstrate a conventional anatomy as they arise from the aortic arch. The origins of the common carotid arteries appear patent. The common carotid arteries demonstrate normal caliber and courses. The bifurcation regions are both widely patent. The internal carotid arteries demonstrate normal calibers and courses. Posterior circulation: The origins of the vertebral arteries both appear widely patent. The more superior extracranial portions of both vertebral arteries also demonstrate normal courses and calibers. They join to form a normal appearing basilar artery. Soft tissues: Visualized neck soft tissues demonstrate no suspicious abnormalities. Emphysematous changes can be seen at the lung apices. Bones: No suspicious bony lesions. Visualized cervical spine appears normally aligned. Age moderate cervical spine degenerative change is seen. IMPRESSION: No significant intracranial arterial abnormality is seen. No significant abnormality is seen within the arteries of the neck. Additional findings: Paranasal sinus disease Moderate cervical spine degenerative change Emphysematous changes at the lung apices Any quantitative measurements of stenosis were performed using NASCET criteria. Dictated by: Rafal Jackson M.D. on 09/14/2024 at 16:08 Approved by: Rafal Jackson M.D. on 09/14/2024 at 16:10
--- NOTE | 2024-09-14 16:56 | ED.NEUROSD ---
HPI - Neuro Symptoms/Deficit General Chief Complaint: Neuro Symptoms/Deficit Stated Complaint: poss stroke Time Seen by Provider: 09/14/24 16:38 Mode of arrival: Ambulatory History of Present Illness HPI Narrative: Patient is an 84-year-old male poor historian history of congestive heart failure aortic stenosis chronic atrial fibrillation on warfarin, hypertension hyperlipidemia with frequent ED visits for dizziness balance issues and vision problems. Presenting today with double vision. 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 He reports something wrong with the lens of his right eye so things appear bigger than the left. This has been a chronic ongoing problem here. He denies any visual loss. He denies any visual pain he has no drainage from his eyes. He denies any falls. No numbness tingling or weakness no chest pain or palpitations. Complaint today seems similar to previous ED visits On Anticoagulants: Yes (Warfarin, afib) Related Data Home Medications Medication Instructions Recorded Confirmed multivitamin (Multiple Vitamins 1 tab PO DAILY ##0 03/06/13 09/03/24 tablet) cholecalciferol (vitamin D3) 50 2,000 unit PO DAILY #0 tabs 08/03/16 09/03/24 mcg (2,000 unit) tablet (Vitamin D3) Iron High Potency 27 mg PO DAILY 04/09/19 09/03/24 Ocuvite 30unit 5mg 150mg 1 cap PO DAILY 04/09/19 09/03/24 melatonin 10 mg tablet 10 mg PO BEDTIME PRN 01/25/23 09/03/24 metoprolol succinate 25 mg 50 mg PO BEDTIME 05/31/24 09/03/24 tablet,extended release 24 hr metoprolol succinate 50 mg 50 mg PO DAILY 05/31/24 09/03/24 tablet,extended release 24 hr Previous Rx's Medication Instructions Recorded finasteride 5 mg tablet 5 mg PO Q OTHER DAY #45 tabs 01/31/24 warfarin 5 mg tablet See Rx Instructions .Route 01/31/24 .COMPLEX #108 tabs tamsulosin 0.4 mg capsule 0.4 mg PO BID #180 caps 02/02/24 atorvastatin 20 mg tablet 20 mg PO DAILY #30 tabs 03/13/24 albuterol sulfate 90 mcg/actuation 2 puff inhalation Q6H PRN 05/31/24 aerosol inhaler shortness of breath or wheezing #8.5 grams Allergies Allergy/AdvReac Type Severity Reaction Status Date / Time No Known Drug Allergies Allergy Verified 09/14/24 16:38 Review of Systems Hematologic/Lymphatic On Anticoagulants: Yes (Warfarin, afib) Patient History Medical History Somatic dysfunction of lower extremity Segmental and somatic dysfunction of abdomen and other regions Strain of right psoas muscle Anxiety about health Foot joint stiffness, bilateral Orthostatic hypotension Blurry vision, bilateral Insomnia COVID-19 virus infection Elevated random blood glucose level Aortic stenosis, severe Anticoagulated on warfarin Physician orders for life-sustaining treatment (POLST) form indicates patient wish for dp-wqt-sjqckpfeejl status Benign prostatic hyperplasia with urinary obstruction Fatigue Erectile dysfunction History of elevated PSA Balance problem Left arm weakness Vitamin D deficiency Pelvic somatic dysfunction Segmental and somatic dysfunction of sacral region Segmental and somatic dysfunction of lumbar region Chronic bilateral low back pain without sciatica Somatic dysfunction of both lower extremities Foot stiffness Segmental and somatic dysfunction of thoracic region Segmental and somatic dysfunction of rib cage Cervical somatic dysfunction Cranial somatic dysfunction Diplopia Chronic atrial fibrillation (01/02/18) Essential hypertension (02/16/16) 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) Incomplete emptying of bladder (02/16/16) Atrial fibrillation with rapid ventricular response Surgical History Hx of cholecystectomy Status post cholecystectomy Family History Mother CVA (cerebral vascular accident) Father Diabetes mellitus Brother Renal failure Social History marital status: number of children: 1 household members: none occupational status: previously employed Previous occupational history: [employer] Smoking Status: Former smoker alcohol intake: former caffeine: Yes Smoking Status: Former smoker alcohol intake frequency: holidays/special occasions only Substance Use Type: does not use Exam Initial Vital Signs Initial Vital Signs: Vital Signs Pulse Rate 91 H 09/14/24 16:35 GENERAL: Alert pleasant 84-year-old male and in no acute distress. HEENT: Head atraumatic,EOMI, pupils reactive, face symmetric, moist mucous membranes EYE: Both eyes were stained with fluorescein no dye uptake. Bilateral eyes evaluated with ultrasound no retinal detachment or vitreous humor detachment Right pressure 20mmHg Left pressure 20mmHg CARDIOVASCULAR: Regular rate and rhythm without murmurs, rubs or gallops. RESPIRATORY: Breath sounds equal bilaterally, no wheezes rales or rhonchi. ABDOMEN: Soft, nontender. Normoactive bowel sounds all 4 quadrants. No guarding or rebound. EXTREMITIES: Normal range of motion, no clubbing or edema. Neurovascularly intact NEUROLOGICAL: Alert and oriented x4.Normal gait and speech. Cranial nerves II through XII grossly intact. Good lkujbo-ak-yclm, good vrud-eu-npry, strength equal bilaterally, no dysarthria or aphasia, sensation in tact to soft touch bilaterally, no visual changes, no facial droop SKIN: Warm, dry, no laceration, no petechiae, no rashes or lesions. Scores NIH Stroke Scale Level of Conciousness: Alert, keenly responsive Ask month/age: Answers both questions correctly. Open/close eyes, close hand: Performs both tasks correctly Best gaze horizontal: Normal Visual tang: No visual loss Facial palsy: Normal symetrical movement Left arm drift: No drift for full 10 sec Right arm drift: No drift for full 10 sec Left leg drift: No drift for full 5 sec Right leg drift: No drift for full 5 sec Limb ataxia: Absent Sensory on face/arms/legs: Normal, no sensory loss Best language: No aphasia, normal Dysarthria: Normal Extinction or inattention: No abnormality Total NIH Stroke scale score: 0 Course Orders Ordered: ED Orders 09/14/24 16:35 CT Stroke Stat XR chest 1V Stat Urine Drug Screen, Rapid Stat EKG-12 Lead Stat 09/14/24 16:38 CT angio head and neck Stat 09/14/24 16:40 Complete Blood Count AUTO DIFF Stat Comprehensive Metabolic Panel Stat Magnesium Stat PTT Partial Thromboplastin Jerry Stat Prothrombin Time INR Stat Troponin & CK Cardiac Panel Stat Ondansetron HCl (Ondansetron 4 Mg/2 Ml Inj) 4 mg IV NOW PRN PRN Reason: Nausea And Vomiting Ondansetron HCl (Ondansetron 4 Mg Odt) 4 mg SL NOW PRN PRN Reason: Nausea And Vomiting Discontinued Medications Fluorescein Sodium (Fluorescein 1 Mg Strip) 1 mg EYE-BOTH NOW ONE Stop: 09/14/24 17:07 Last Admin: 09/14/24 17:24 Dose: 1 mg Documented By: GW Proparacaine HCl (Proparacaine 0.5% Ophth Antonella) 1 drops EYE-BOTH NOW ONE Stop: 09/14/24 17:07 Last Admin: 09/14/24 17:24 Dose: 1 drop Documented By: MILAN Vital Signs Vital signs: Vital Signs - 8 hr 09/14/24 16:35 09/14/24 16:36 09/14/24 16:36 Temperature Pulse Rate 91 H 88 Respiratory Rate 23 Blood Pressure 180/94 H Pulse Oximetry 97 Oxygen Delivery Method 09/14/24 16:38 09/14/24 17:00 09/14/24 17:30 Temperature 98 F Pulse Rate 86 90 90 Respiratory Rate 17 16 Blood Pressure 180/94 H Pulse Oximetry 98 98 96 Oxygen Delivery Method Room Air MDM - Neuro Symptoms/Deficit Lab Data 09/14/24 16:40 09/14/24 16:40 Labs: Lab Results 09/14/24 Range/Units 16:40 WBC 7.4 (4.5-11.0) X10^3/uL RBC 4.94 (4.5-5.9) X10^6/uL Hgb 15.1 (13.5-17.5) g/dL Hct 45.1 (41-53) % MCV 91.4 (80-100) fL MCH 30.5 (26-34) PG MCHC 33.3 (30-36) % RDW 14.8 (11.6-14.8) % Plt Count 297 (150-400) X10^3/uL Neut % (Auto) 74.4 (50-75) % Lymph % (Auto) 12.3 L (25-40) % Yancey % (Auto) 7.8 (3-14) % Eos % (Auto) 3.1 (2-4) % Baso % (Auto) 2.4 H (0-2) % Neut # (Auto) 5500 (5731-1980) /uL Lymph # (Auto) 900 L (1309-2458) /uL Yancey # (Auto) 600 (0-900) /uL Eos # (Auto) 200 (0-450) /uL Baso # (Auto) 200 H (0-100) /uL PT 24.1 H (9.4-12.5) SECONDS INR 2.2 H (0.9-1.3) APTT 52 H (25.1-36.5) SECONDS Sodium 135 L (137-145) mmol/L Potassium 3.9 (3.4-5.1) mmol/L Chloride 102 (98-107) mmol/L Carbon Dioxide 27 (22-32) mmol/L BUN 19 (9-20) mg/dL Creatinine 1.03 (0.66-1.25) mg/dL Estimated GFR > 60 (>60) mL/min BUN/Creatinine Ratio 18.4 (6-22) Glucose 108 (80-110) mg/dL Calcium 8.7 (8.4-10.2) mg/dL Magnesium 1.9 (1.6-2.3) mg/dL Total Bilirubin 1.4 H (0.2-1.3) mg/dL AST 30 (17-59) IU/L ALT 30 (<50) IU/L Alkaline Phosphatase 100 (38-126) U/L Total Creatine Kinase 56 (55-170) U/L Troponin I < 0.012 (0.01-0.034) ng/mL Total Protein 6.9 (6.3-8.2) g/dL Albumin 3.8 (3.5-5.0) g/dL Globulin 3.1 (1.7-4.1) g/dL Albumin/Globulin Ratio 1.2 (1.0-2.8) Imaging Data CT scan - head: Radiologist's Impression: PROCEDURE: CT STROKE INDICATIONS: Positive BE-FAST, Stroke symptoms TECHNIQUE: Noncontrast 4.5 mm thick angled axial sections acquired from the foramen magnum to the vertex, with coronal reformats. For radiation dose reduction, the following was used: automated exposure control, adjustment of mA and/or kV according to patient size. COMPARISON: [facility], CT, CT HEAD/BRAIN WO CON, 05/20/2024, 0:11. [facility], CT, CT STROKE, 06/28/2021, 13:55. FINDINGS: Image quality: Mild streak artifact can be seen through the skull base. CSF spaces: Basal cisterns are patent. No extra-axial fluid collections. The ventricles are symmetric in size and shape. Brain: No intracranial bleeds or masses. There is cerebral volume loss for age, with resultant ventricular and sulcal prominence. There are periventricular and deep white matter chronic small vessel ischemic changes. There is intracranial internal carotid artery atherosclerosis. Skull and face: Calvarium and visualized facial bones appear intact, without suspicious lesions. Sinuses: Visualized sinuses and mastoids are clear. IMPRESSION: No acute intracranial pathology. No acute intracranial hemorrhage is seen. Note: Case discussed by telephone with Dr. Wick at 4:53 p.m. Merr[place] time on September 14, 2024. This study fulfills neurological imaging criteria for inclusion or exclusion of acute stroke therapies based on available published neurological guidelines. CTA - brain/neck: Radiologist's Impression: PROCEDURE: CT ANGIO HEAD AND NECK INDICATIONS: double vision headach on warfarin TECHNIQUE: After the administration of intravenous contrast, 1 mm thick sections acquired from the aortic arch through the [place] of [place]. 3-dimensional xxaizwb-gdaglatyw-mpciqoiusv (MIP) and/or volume rendering reformats were acquired of the central intracranial vasculature and neck separately. For radiation dose reduction, the following was used: automated exposure control, adjustment of mA and/or kV according to patient size. COMPARISON: [facility], CT, CT STROKE, 09/14/2024, 16:41. [facility], CT, CT ANGIO HEAD AND NECK, 03/14/2023, 5:18. FINDINGS: Image quality: Limited by bolus timing, with venous contamination. BRAIN: CSF spaces: Ventricles are normal in size and shape. Basal cisterns are patent. No extra-axial fluid collections. Brain: No significant abnormality of the brain can be seen. Skull and face: Calvarium and facial bones appear intact, without suspicious lesions. Orbits appear normal. Sinuses: Moderate patchy paranasal sinus disease can be seen. No abnormal fluid is seen within the mastoid air cells. HEAD CT ANGIOGRAPHY: Anterior circulation: Intracranial internal carotid arteries are normal in size and flow. The flow within the paired anterior cerebral arteries is normal and symmetric. The flow within the middle cerebral arteries is normal and symmetric. The anterior communicating artery is seen. No aneurysms are seen. Posterior circulation: Visualized portions of the vertebral arteries demonstrate normal caliber, and join to form a normal appearing basilar artery. Flow within the posterior cerebral arteries is normal and symmetric. No aneurysms are seen. NECK CT ANGIOGRAPHY: Carotid system: The great vessels demonstrate a conventional anatomy as they arise from the aortic arch. The origins of the common carotid arteries appear patent. The common carotid arteries demonstrate normal caliber and courses. The bifurcation regions are both widely patent. The internal carotid arteries demonstrate normal calibers and courses. Posterior circulation: The origins of the vertebral arteries both appear widely patent. The more superior extracranial portions of both vertebral arteries also demonstrate normal courses and calibers. They join to form a normal appearing basilar artery. Soft tissues: Visualized neck soft tissues demonstrate no suspicious abnormalities. Emphysematous changes can be seen at the lung apices. Bones: No suspicious bony lesions. Visualized cervical spine appears normally aligned. Age moderate cervical spine degenerative change is seen. IMPRESSION: No significant intracranial arterial abnormality is seen. No significant abnormality is seen within the arteries of the neck. Additional findings: Paranasal sinus disease Moderate cervical spine degenerative change Emphysematous changes at the lung apices Any quantitative measurements of stenosis were performed using NASCET criteria. Dictated by: Rafal Jackson M.D. on 09/14/2024 at 16:08 Chest x-ray: Radiologist's Impression: PROCEDURE: XR CHEST 1V INDICATIONS: Possible stroke TECHNIQUE: One view of the chest was acquired. COMPARISON: [facility], CT, CT ANGIO HEAD AND NECK, 09/14/2024, 16:46. [facility], CT, CT STROKE, 09/14/2024, 16:41. [facility], CR, XR CHEST 1V, 05/19/2024, 23:24. FINDINGS: Surgical changes and devices: None. Lungs and pleura: On this semiupright portable chest examination, no large pneumothorax or large pleural effusions are seen. No focal infiltrates are seen. Mild generalized interstitial prominence can be seen. Mediastinum: Mediastinal contours appear normal. Heart size is mildly enlarged. Bones and chest wall: No suspicious bony lesions. Age-appropriate bony degenerative changes are seen. Overlying soft tissues appear unremarkable. IMPRESSION: Cardiomegaly with mild generalized interstitial prominence and potential pleural effusions. Please consider CHF. Dictated by: Rafal Jackson M.D. on 09/14/2024 at 16:07 ECG Data Attestation: I personally reviewed and interpreted this ECG as follows: Prior ECG tracings: available for review Interpretation: Atrial fibrillation rate 87 no ischemia similar to previous EKGs MDM Narrative Medical decision making narrative: MDM CC: Vision changes Complicating co-morbidities: Chronic vision changes atrial fibrillation valve replacement on warfarin Medical records reviewed: Previous ED visits, PCP visit Differential considered: Intracranial hemorrhage CVA acute angle glaucoma retinal detachment Exam documented above, pertinent findings include: Alert pleasant 84-year-old male, NIH stroke scale 0, no significant eye abnormality pressure in both eyes 20 no dye uptake Lab Test results independently reviewed as above. Pertinent findings: WBC 7.4 hemoglobin 15.1 hematocrit 45 platelets 297 CMP sodium 135 potassium 3.9 chloride 102 carbon dioxide 27 BUN 19 creatinine 1.0 Bilirubin 1.4 previously 1.7, AST 30 ALT 30 alk-phos 100 Troponin negative Independently reviewed EKG as above atrial fibrillation no ischemia Imaging studies independently reviewed: Chest x-ray cardiomegaly, possible CHF Head CT noncontrast no intracranial hemorrhage CT angio no stenosis Consultations: none Treatments: None Re-evaluations: No significant change. Discussion: Patient 84-year-old male presenting today with ongoing blurry vision. This has been noted on multiple records before. He is NIH stroke scale of 0 no concern for CVA today. He has appointment with ophthalmology coming up. He reports depth perception out of both eyes is different which is likely why he is having blurry vision. No concern for elevated pressure glaucoma retinal detachment retinal artery occlusion. Blood work is overall reassuring At this time I see no need for any further workup or evaluation in the emergency department Discharge Plan Departure Patient Disposition: Home Clinical Impression: Blurred vision Instructions: DI for Double Vision Activity Restrictions/Additional Instructions: *You have been diagnosed with vision changes *What to do: At this time please follow-up with your eye doctor workup in the emergency department is overall reassuring today *Continue to take medications as directed *Follow up with your primary care provider in 2-3 days or call [phone] *Return to ER if you should have increasing falls weakness confusion or any new, worsening or concerning symptoms Prescriptions: No Action multivitamin [Multiple Vitamins] 1 EACH tablet 1 tab PO DAILY Qty: 0 cholecalciferol (vitamin D3) [Vitamin D3] 2,000 UNIT tablet 2,000 unit PO DAILY Qty: 0 finasteride 5 mg tablet 5 mg PO Q OTHER DAY Qty: 45 3RF warfarin 5 mg tablet See Rx Instructions .ROUTE .COMPLEX Qty: 108 3RF Protocol: Dose Management Condition: Monday Dose/Route: 2.5 mg Instruction: 0.5 x 5 mg tablets Condition: Monday Dose/Route: 2.5 mg Instruction: 0.5 x 5 mg tablets Condition: Monday Dose/Route: 5 mg Instruction: 1 x 5 mg tablet Condition: Monday Dose/Route: 2.5 mg Instruction: 0.5 x 5 mg tablets Condition: Dose/Route: 2.5 mg Instruction: 0.5 x 5 mg tablets Condition: Monday Dose/Route: 2.5 mg Instruction: 0.5 x 5 mg tablets Condition: Monday Dose/Route: 5 mg Instruction: 1 x 5 mg tablet Protocol Text: Adjustment Start Date: Monday08/05/24 INR Value: 2.6 INR Date: 08/05/24 Recheck Date: 09/02/24 Dose Instruction: Take 1/2 tablet daily except on and Mon take 1 or as directed by doctor ; Rx Instructions: Take 5mg Monday and Monday and 2.5mg all other days, or as directed. tamsulosin 0.4 mg capsule 0.4 mg PO BID Qty: 180 3RF Rx Instructions: 30 minutes following the same meal each day melatonin 10 mg tablet 10 mg PO BEDTIME PRN metoprolol succinate 25 mg tablet extended release 24 hr 50 mg PO BEDTIME atorvastatin 20 mg tablet 20 mg PO DAILY Qty: 30 11RF Iron High Potency 27 mg tablet 27 mg PO DAILY Patient Comments: Iron High Potency 240mg (27mg iron) Ocuvite 30unit 5mg 150mg 1 cap PO DAILY metoprolol succinate 50 mg tablet extended release 24 hr 50 mg PO DAILY albuterol sulfate 90 mcg/actuation HFA aerosol inhaler 2 puff inhalation Q6H PRN (Reason: shortness of breath or wheezing) Qty: 8.5 6RF Referrals: Alejandro Pinto DO [Primary Care Provider] - Stand Alone Forms: Patient Portal/API/Survey
[2024-09-14 16:57] LABS: INR 2.2 (0.9-1.3); Prothrombin Time 24.1 SECONDS (9.4-12.5)
[2024-09-14 17:00] VITALS: PULSE 90; RESP 16; O2SAT 98
[2024-09-14 17:00] LABS: PTT Partial Thromboplastin Tim 52 SECONDS (25.1-36.5)
[2024-09-14 17:01] LABS: Alanine Aminotransferase 30 IU/L (<50); Albumin 3.8 g/dL (3.5-5.0); Albumin Globulin Ratio 1.2 (1.0-2.8); Alkaline Phosphatase 100 U/L (38-126); Aspartate Aminotransferase 30 IU/L (17-59); BUN Creatinine Ratio 18.4 (6-22); Bilirubin Total 1.4 mg/dL (0.2-1.3); Blood Urea Nitrogen 19 mg/dL (9-20); Calcium 8.7 mg/dL (8.4-10.2); Carbon Dioxide 27 mmol/L (22-32); Chloride 102 mmol/L (98-107); Creatine Kinase 56 U/L (55-170); Estimated Glomerular Filt Rate > 60 mL/min (>60); Globulin 3.1 g/dL (1.7-4.1); Glucose 108 mg/dL (80-110); HEMOLYSIS 18 (0-50); Magnesium 1.9 mg/dL (1.6-2.3); Potassium 3.9 mmol/L (3.4-5.1); Sodium 135 mmol/L (137-145); Total Protein 6.9 g/dL (6.3-8.2)
[2024-09-14 17:02] LABS: Add Manual Diff / Slide Review NO; Basophils Absolute Auto 200 /uL (0-100); Basophils Percent Auto 2.4 % (0-2); Eosinophils Absolute Auto 200 /uL (0-450); Eosinophils Percent Auto 3.1 % (2-4); Hematocrit 45.1 % (41-53); Hemoglobin 15.1 g/dL (13.5-17.5); Lymphocytes Absolute Auto 900 /uL (1100-4500); Lymphocytes Percent Auto 12.3 % (25-40); Mean Corpuscular HGB Conc 33.3 % (30-36); Mean Corpuscular Hemoglobin 30.5 PG (26-34); Mean Corpuscular Volume 91.4 fL (80-100); Monocytes Absolute Auto 600 /uL (0-900); Monocytes Percent Auto 7.8 % (3-14); Neutrophils Absolute Auto 5500 /uL (1500-7000); Neutrophils Percent Auto 74.4 % (50-75); Platelet Count 297 X10^3/uL (150-400); Red Blood Cell Count 4.94 X10^6/uL (4.5-5.9); Red Cell Distribution Width 14.8 % (11.6-14.8); White Blood Cell Count 7.4 X10^3/uL (4.5-11.0)
[2024-09-14 17:13] LABS: Troponin I < 0.012 ng/mL (0.01-0.034)
[2024-09-14] MEDS: FLUORESCEIN 1 MG STRIP EYE-BOTH (17:24)
[2024-09-14] MEDS: PROPARACAINE 0.5% OPHTH SOL 1 DROPS EYE-BOTH (17:24)
[2024-09-14 17:30] VITALS: PULSE 90; O2SAT 96
[2024-09-14 18:00] VITALS: PULSE 81; RESP 18; O2SAT 97
== END 2024-09-14 18:34 | disposition home or self-care (01) ==
PROVIDERS: Emergency Provider Emergency Medicine; Family Provider Family Medicine; PCP Family Medicine
DX: H53.8 Other visual disturbances (principal); R51.9 Headache, unspecified; I48.20 Chronic atrial fibrillation, unspecified; Z79.01 Long term (current) use of anticoagulants; I51.7 Cardiomegaly; R29.818 Other symptoms and signs involving the nervous system
CPT/HCPCS: 36415; 70450; 70496; 70498; 71045; 80053; 82550; 83735; 84484; 85025; 85610; 85730; 93005; 99284; Q9967

== ENCOUNTER 2024-10-26 06:13 | Emergency (ER) | payer MEDICARE, OTHER, SELFPAY ==
[2023-03-15 10:23] VITALS: BMI 23.5
[2024-10-26] VITALS (12 sets, daily range): BP systolic 132–179; BP diastolic 70–88; PULSE 68–108; RESP 18–28; TEMP 36.7–36.8; O2SAT 92–98
--- NOTE | 2024-10-26 07:26 | DI.RAD.S_ITS ---
PROCEDURE: XR CHEST 1V INDICATIONS: chest pain TECHNIQUE: One view of the chest was acquired. COMPARISON: [facility], CR, XR CHEST 1V, 09/14/2024, 16:33. FINDINGS: Surgical changes and devices: None. Lungs and pleura: Mild diffuse interstitial prominence and patchy bibasilar opacities. Small bilateral pleural effusions. No dense consolidations. No pneumothorax. Mediastinum: Mediastinal contours appear normal. Heart size is prominent. Bones and chest wall: No suspicious bony lesions. Overlying soft tissues appear unremarkable. IMPRESSION: Mild cardiomegaly, bilateral pleural effusions and diffuse interstitial prominence suggestive of pulmonary edema/CHF. No dense consolidation seen. Recommend follow up chest radiograph 4-6 weeks after treatment to document resolution of findings and/or return to baseline examination. Dictated by: Dony Mccullough M.D. on 10/26/2024 at 7:41 Approved by: Dony Mccullough M.D. on 10/26/2024 at 7:42
[2024-10-26 07:31] LABS: Add Manual Diff / Slide Review NO; Basophils Absolute Auto 100 /uL (0-100); Basophils Percent Auto 0.9 % (0-2); Eosinophils Absolute Auto 200 /uL (0-450); Eosinophils Percent Auto 2.4 % (2-4); Hematocrit 42.5 % (41-53); Lymphocytes Absolute Auto 600 /uL (1100-4500); Lymphocytes Percent Auto 7.5 % (25-40); Mean Corpuscular Volume 90.9 fL (80-100); Monocytes Absolute Auto 700 /uL (0-900); Monocytes Percent Auto 8.8 % (3-14); Neutrophils Absolute Auto 6800 /uL (1500-7000); Neutrophils Percent Auto 80.4 % (50-75); Platelet Count 262 X10^3/uL (150-400); Red Blood Cell Count 4.68 X10^6/uL (4.5-5.9); Red Cell Distribution Width 14.7 % (11.6-14.8); White Blood Cell Count 8.4 X10^3/uL (4.5-11.0)
--- NOTE | 2024-10-26 07:32 | EKG_ITS ---
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
[2024-10-26 07:41] LABS: Alanine Aminotransferase 27 IU/L (<50); Albumin 3.8 g/dL (3.5-5.0); Albumin Globulin Ratio 1.4 (1.0-2.8); Alkaline Phosphatase 81 U/L (38-126); Aspartate Aminotransferase 32 IU/L (17-59); BUN Creatinine Ratio 16.5 (6-22); Bilirubin Total 1.9 mg/dL (0.2-1.3); Blood Urea Nitrogen 18 mg/dL (9-20); Calcium 8.5 mg/dL (8.4-10.2); Carbon Dioxide 25 mmol/L (22-32); Chloride 104 mmol/L (98-107); Estimated Glomerular Filt Rate > 60 mL/min (>60); Globulin 2.8 g/dL (1.7-4.1); Glucose 104 mg/dL (80-110); HEMOLYSIS 26 (0-50); Potassium 4.2 mmol/L (3.4-5.1); Sodium 135 mmol/L (137-145); Total Protein 6.6 g/dL (6.3-8.2)
[2024-10-26 07:43] LABS: INR 3.5 (0.9-1.3)
[2024-10-26 07:45] LABS: PTT Partial Thromboplastin Tim 55 SECONDS (25.1-36.5)
[2024-10-26 07:48] LABS: Creatine Kinase 65 U/L (55-170); Estimated Glomerular Filt Rate > 60 mL/min (>60); Lipase 211 U/L (23-300)
[2024-10-26 08:00] LABS: NT-proBNP (BNP-Adult 18+) 2270 pg/mL (<450); Troponin I < 0.012 ng/mL (0.01-0.034)
[2024-10-26 08:04] LABS: Appearance Urine UA CLEAR; Bilirubin Urine UA NEGATIVE (NEGATIVE); Color Urine UA YELLOW; Glucose Urine UA NEGATIVE (Negative); Ketones Urine UA NEGATIVE (NEGATIVE); Leukocyte Esterase Urine UA TRACE (NEGATIVE); Nitrite Urine UA NEGATIVE (Negative); Occult Blood Urine UA NEGATIVE (Negative); Protein Urine UA NEGATIVE (Negative); Urobilinogen Urine UA 0.2 E.U./dL (0.2)
[2024-10-26 08:05] LABS: Urine Volume 10mL (spun)
[2024-10-26 08:07] LABS: Bacteria Urine None Seen; Culture Indicated Urine Cult Not Indicated; RBC Urine None Seen (0-5/HPF); Squamous Epithelial Cell Urine None Seen (0-5/HPF); WBC Urine 0-1/HPF (0-5/HPF)
[2024-10-26 08:43] LABS: Adenovirus Not Detected (Not Detect); B. parapertussis Not Detected (Not Detecte); Bordetella pertussis Not Detected (Not Detect); Chlamydophila pneumoniae Not Detected (Not Detect); Coronavirus 229E Not Detected (Not Detect); Coronavirus HKU1 Not Detected (Not Detect); Coronavirus NL 63 Not Detected (Not Detect); Coronavirus OC43 Not Detected (Not Detect); Human Metapneumovirus Not Detected (Not Detect); Human Rhinovirus/Enterovirus Detected (Not Detect); Influenza A Not Detected (Not Detect); Influenza B Not Detected (Not Detect); Mycoplasma pneumoniae Not Detected (Not Detect); Parainfluenza Virus 1 Not Detected (Not Detect); Parainfluenza Virus 2 Not Detected (Not Detect); Parainfluenza Virus 3 Not Detected (Not Detect); Parainfluenza Virus 4 Not Detected (Not Detect); Respiratory Syncytial Virus Not Detected (Not Detect); SARS- CoV-2 Not Detected (Not Detecte)
--- NOTE | 2024-10-26 09:50 | ED.GENADULT ---
HPI - General Adult General Chief complaint: Dizziness Stated complaint: fever 101,lightheaded Time Seen by Provider: 10/26/24 07:04 Source: patient, RN notes reviewed and old records reviewed Mode of arrival: Ambulatory Limitations: no limitations History of Present Illness HPI narrative: 84-year-old male history of atrial fibrillation on warfarin, area stenosis, hypertension, dyslipidemia, BPH patient presents states he had a fever today of 101 F at home. No chills or rigors. States he felt a little bit more lightheaded than usual. He states he has had lightheadedness for about 2 years but has been able to ambulate. Denies headache no neck pain, felt a little bit more short of breath today. No chest pain currently. He has had a cough for the last several days which has been nonproductive. Denies any orthopnea. He has not appreciate any new swelling in his extremities denies any nausea or vomiting, no issues with bowel movements. No new changes with urination. No new swelling of extremities. No rash or skin changes. Patient has known atrial fibrillation is on warfarin, takes statin, finasteride, melatonin, metoprolol 50 mg in the morning and 25 mg in the evening. He has not on any diuretics. He has had a prior history of cholecystectomy no prior cardiac interventions. No known drug allergies. No tobacco, alcohol or recreational drugs. Follows with Cardiology. Has not appointment with pulmonology as he had a CT of his chest that showed possible starting from asbestos she was being seen for this. Dr. Pinto is his primary care physician. Related Data Home Medications Medication Instructions Recorded Confirmed multivitamin (Multiple Vitamins 1 tab PO DAILY ##0 03/06/13 09/19/24 tablet) cholecalciferol (vitamin D3) 50 2,000 unit PO DAILY #0 tabs 08/03/16 09/19/24 mcg (2,000 unit) tablet (Vitamin D3) Iron High Potency 27 mg PO DAILY 04/09/19 09/19/24 Ocuvite 30unit 5mg 150mg 1 cap PO DAILY 04/09/19 09/19/24 melatonin 10 mg tablet 10 mg PO BEDTIME PRN 01/25/23 09/19/24 metoprolol succinate 25 mg 50 mg PO BEDTIME 05/31/24 09/19/24 tablet,extended release 24 hr metoprolol succinate 50 mg 50 mg PO DAILY 05/31/24 09/19/24 tablet,extended release 24 hr Previous Rx's Medication Instructions Recorded finasteride 5 mg tablet 5 mg PO Q OTHER DAY #45 tabs 01/31/24 warfarin 5 mg tablet See Rx Instructions .Route 01/31/24 .COMPLEX #108 tabs tamsulosin 0.4 mg capsule 0.4 mg PO BID #180 caps 02/02/24 atorvastatin 20 mg tablet 20 mg PO DAILY #30 tabs 03/13/24 albuterol sulfate 90 mcg/actuation 2 puff inhalation Q6H PRN 05/31/24 aerosol inhaler shortness of breath or wheezing #8.5 grams Allergies Allergy/AdvReac Type Severity Reaction Status Date / Time No Known Drug Allergies Allergy Verified 10/26/24 07:16 Review of Systems Review of Systems ROS Unobtainable: All systems reviewed & are unremarkable except as noted in HPI and below Patient History Medical History Somatic dysfunction of lower extremity Segmental and somatic dysfunction of abdomen and other regions Strain of right psoas muscle Anxiety about health Foot joint stiffness, bilateral Orthostatic hypotension Blurry vision, bilateral Insomnia COVID-19 virus infection Elevated random blood glucose level Aortic stenosis, severe Anticoagulated on warfarin Physician orders for life-sustaining treatment (POLST) form indicates patient wish for [id number] status Benign prostatic hyperplasia with urinary obstruction Fatigue Erectile dysfunction History of elevated PSA Balance problem Left arm weakness Vitamin D deficiency Pelvic somatic dysfunction Segmental and somatic dysfunction of sacral region Segmental and somatic dysfunction of lumbar region Chronic bilateral low back pain without sciatica Somatic dysfunction of both lower extremities Foot stiffness Segmental and somatic dysfunction of thoracic region Segmental and somatic dysfunction of rib cage Cervical somatic dysfunction Cranial somatic dysfunction Diplopia Chronic atrial fibrillation (01/02/18) Essential hypertension (02/16/16) 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) Incomplete emptying of bladder (02/16/16) Atrial fibrillation with rapid ventricular response Surgical History Hx of cholecystectomy Status post cholecystectomy Family History Mother CVA (cerebral vascular accident) Father Diabetes mellitus Brother Renal failure Social History (Reviewed 10/26/24 @ 10:27 by ADRIANA Hays marital status: number of children: 1 household members: none occupational status: previously employed Previous occupational history: [employer] Smoking Status: Former smoker alcohol intake: former caffeine: Yes Smoking Status: Former smoker alcohol intake frequency: holidays/special occasions only Exam Narrative Exam Narrative: GEN: well nourished, well appearing male, alert and oriented x 3, patient appears to be in mild distress. HEENT: Atraumatic, pupils are equal round reactive to light, extraocular movements are intact, nares are clear, there is no conjunctival pallor. Throat is clear without any exudates, erythema, tonsillar enlargement or uvular deviation HEART: Regular rate and rhythm without murmur, clicks, rubs. Pulses are equal in upper and lower extremities. No JVD. No edema bilateral lower extremities. LUNGS:Lungs clear to auscultation, no wheezes, no tachypnea, patient has little bit of crackles particularly right base, chest moves symmetrically. Normal speech. ABD:bowel sounds normal, soft, non-tender, no guarding, rebound, rigidity, no masses noted, no hepatosplenomegaly :No CVA tenderness MSCL: Non-tender, no muscle atrophy, muscles strength 5/5 upper and lower extremities, full range of motion, normal gait NEURO:CN 2-12 intact, sensation normal. SKIN: No rash, erythema or other skin changes. Initial Vital Signs Initial Vital Signs: Vital Signs Temperature 98.2 F 10/26/24 07:00 Pulse Rate 102 H 10/26/24 07:00 Respiratory Rate 22 10/26/24 07:00 Blood Pressure 179/86 H 10/26/24 07:00 Pulse Oximetry 98 10/26/24 07:00 Oxygen Delivery Method Room Air 10/26/24 07:00 Course Orders Ordered: ED Orders 10/26/24 07:20 CBC Auto Diff [Complete Blood Count AUTO DIFF] Stat CMP [Comprehensive Metabolic Panel] Stat Creatinine & eGFR Stat Lipase Stat Magnesium Stat NT-proBNP (BNP-Adult 18+) Stat PTT Partial Thromboplastin Jerry Stat Prothrombin Time INR Stat Troponin & CK Cardiac Panel Stat 10/26/24 07:26 XR chest 1V Stat EKG-12 Lead Stat 10/26/24 07:50 Respiratory Panel (Film Array) Stat Urinalysis and Microscopic Stat Vital Signs Vital signs: Vital Signs - 8 hr 10/26/24 07:00 10/26/24 07:07 10/26/24 07:08 Temperature 98.2 F Pulse Rate 102 H 68 Respiratory Rate 22 Blood Pressure 179/86 H 179/86 H Pulse Oximetry 98 92 Oxygen Delivery Method Room Air 10/26/24 07:08 10/26/24 07:30 10/26/24 07:30 Temperature Pulse Rate 100 H 98 H Respiratory Rate 18 Blood Pressure 160/77 H Pulse Oximetry 97 97 Oxygen Delivery Method Room Air 10/26/24 08:00 10/26/24 08:00 Temperature Pulse Rate 95 H Respiratory Rate 18 Blood Pressure 150/74 H Pulse Oximetry 97 Oxygen Delivery Method Medical Decision Making Lab Data 10/26/24 07:20 10/26/24 07:20 Labs: Lab Results 10/26/24 10/26/24 10/26/24 Range/Units 07:20 07:20 07:20 WBC 8.4 (4.5-11.0) X10^3/uL RBC 4.68 (4.5-5.9) X10^6/uL Hgb 14.0 (13.5-17.5) g/dL Hct 42.5 (41-53) % MCV 90.9 (80-100) fL MCH 30.0 (26-34) PG MCHC 33.0 (30-36) % RDW 14.7 (11.6-14.8) % Plt Count 262 (150-400) X10^3/uL Neut % (Auto) 80.4 H (50-75) % Lymph % (Auto) 7.5 L (25-40) % Cottle % (Auto) 8.8 (3-14) % Eos % (Auto) 2.4 (2-4) % Baso % (Auto) 0.9 (0-2) % Neut # (Auto) 6800 (5220-6742) /uL Lymph # (Auto) 600 L (3144-5381) /uL Cottle # (Auto) 700 (0-900) /uL Eos # (Auto) 200 (0-450) /uL Baso # (Auto) 100 (0-100) /uL PT 38.0 H (9.4-12.5) SECONDS INR 3.5 H (0.9-1.3) APTT 55 H (25.1-36.5) SECONDS Sodium 135 L (137-145) mmol/L Potassium 4.2 (3.4-5.1) mmol/L Chloride 104 (98-107) mmol/L Carbon Dioxide 25 (22-32) mmol/L BUN 18 (9-20) mg/dL Creatinine 1.09 1.10 (0.66-1.25) mg/dL Estimated GFR > 60 > 60 (>60) mL/min BUN/Creatinine Ratio 16.5 (6-22) Glucose 104 (80-110) mg/dL Calcium 8.5 (8.4-10.2) mg/dL Magnesium 2.0 (1.6-2.3) mg/dL Total Bilirubin 1.9 H (0.2-1.3) mg/dL AST 32 (17-59) IU/L ALT 27 (<50) IU/L Alkaline Phosphatase 81 (38-126) U/L Total Creatine Kinase 65 (55-170) U/L Troponin I < 0.012 (0.01-0.034) ng/mL NT-Pro-B Natriuret Pep 2270 H (<450) pg/mL Total Protein 6.6 (6.3-8.2) g/dL Albumin 3.8 (3.5-5.0) g/dL Globulin 2.8 (1.7-4.1) g/dL Albumin/Globulin Ratio 1.4 (1.0-2.8) Lipase 211 (23-300) U/L Urine Color Urine Appearance Urine pH (4.5-8.0) Ur Specific [place] (1.000-1.035) Urine Protein (Negative) Urine Glucose (UA) (Negative) g/dL Urine Ketones (NEGATIVE) Urine Occult Blood (Negative) Urine Nitrate (Negative) Urine Bilirubin (NEGATIVE) Urine Urobilinogen (0.2) E.U./dL Ur Leukocyte Esterase (NEGATIVE) Urine RBC (0-5/HPF) Urine WBC (0-5/HPF) Ur Squamous Epith Cells (0-5/HPF) Urine Bacteria (None) Ur Culture Indicated? Vol Urine Centrifuged Chlamy pneumoniae PCR (Not Detect) Adenovirus (PCR) (Not Detect) B. pertussis DNA (PCR) (Not Detect) B.parapertussis DNA PCR (Not Detecte) Coronavirus OC43 (PCR) (Not Detect) Coronavirus HKU1 (PCR) (Not Detect) Coronavirus 229E (PCR) (Not Detect) SARS-CoV-2 (PCR) (Not Detecte) Coronavirus NL63 (PCR) (Not Detect) Human Metapneumovir PCR (Not Detect) Influenza Type A (PCR) (Not Detect) Influenza Type B (PCR) (Not Detect) M. pneumoniae (PCR) (Not Detect) Parainfluenza 1 (PCR) (Not Detect) Parainfluenza 2 (PCR) (Not Detect) Parainfluenza 3 (PCR) (Not Detect) Parainfluenza 4 (PCR) (Not Detect) RSV (PCR) (Not Detect) Entero/Rhino (PCR) (Not Detect) 10/26/24 Range/Units 07:50 WBC (4.5-11.0) X10^3/uL RBC (4.5-5.9) X10^6/uL Hgb (13.5-17.5) g/dL Hct (41-53) % MCV (80-100) fL MCH (26-34) PG MCHC (30-36) % RDW (11.6-14.8) % Plt Count (150-400) X10^3/uL Neut % (Auto) (50-75) % Lymph % (Auto) (25-40) % Cottle % (Auto) (3-14) % Eos % (Auto) (2-4) % Baso % (Auto) (0-2) % Neut # (Auto) (2026-6553) /uL Lymph # (Auto) (6162-4427) /uL Cottle # (Auto) (0-900) /uL Eos # (Auto) (0-450) /uL Baso # (Auto) (0-100) /uL PT (9.4-12.5) SECONDS INR (0.9-1.3) APTT (25.1-36.5) SECONDS Sodium (137-145) mmol/L Potassium (3.4-5.1) mmol/L Chloride (98-107) mmol/L Carbon Dioxide (22-32) mmol/L BUN (9-20) mg/dL Creatinine (0.66-1.25) mg/dL Estimated GFR (>60) mL/min BUN/Creatinine Ratio (6-22) Glucose (80-110) mg/dL Calcium (8.4-10.2) mg/dL Magnesium (1.6-2.3) mg/dL Total Bilirubin (0.2-1.3) mg/dL AST (17-59) IU/L ALT (<50) IU/L Alkaline Phosphatase (38-126) U/L Total Creatine Kinase (55-170) U/L Troponin I (0.01-0.034) ng/mL NT-Pro-B Natriuret Pep (<450) pg/mL Total Protein (6.3-8.2) g/dL Albumin (3.5-5.0) g/dL Globulin (1.7-4.1) g/dL Albumin/Globulin Ratio (1.0-2.8) Lipase (23-300) U/L Urine Color Yellow Urine Appearance Clear Urine pH 6.0 (4.5-8.0) Ur Specific [place] 1.010 (1.000-1.035) Urine Protein Negative (Negative) Urine Glucose (UA) Negative (Negative) g/dL Urine Ketones Negative (NEGATIVE) Urine Occult Blood Negative (Negative) Urine Nitrate Negative (Negative) Urine Bilirubin Negative (NEGATIVE) Urine Urobilinogen 0.2 (0.2) E.U./dL Ur Leukocyte Esterase Trace H (NEGATIVE) Urine RBC None seen (0-5/HPF) Urine WBC 0-1/hpf (0-5/HPF) Ur Squamous Epith Cells None seen (0-5/HPF) Urine Bacteria None seen (None) Ur Culture Indicated? Cult not indicated Vol Urine Centrifuged 10ml (spun) Chlamy pneumoniae PCR Not detected (Not Detect) Adenovirus (PCR) Not detected (Not Detect) B. pertussis DNA (PCR) Not detected (Not Detect) B.parapertussis DNA PCR Not detected (Not Detecte) Coronavirus OC43 (PCR) Not detected (Not Detect) Coronavirus HKU1 (PCR) Not detected (Not Detect) Coronavirus 229E (PCR) Not detected (Not Detect) SARS-CoV-2 (PCR) Not detected (Not Detecte) Coronavirus NL63 (PCR) Not detected (Not Detect) Human Metapneumovir PCR Not detected (Not Detect) Influenza Type A (PCR) Not detected (Not Detect) Influenza Type B (PCR) Not detected (Not Detect) M. pneumoniae (PCR) Not detected (Not Detect) Parainfluenza 1 (PCR) Not detected (Not Detect) Parainfluenza 2 (PCR) Not detected (Not Detect) Parainfluenza 3 (PCR) Not detected (Not Detect) Parainfluenza 4 (PCR) Not detected (Not Detect) RSV (PCR) Not detected (Not Detect) Entero/Rhino (PCR) Detected H (Not Detect) Imaging Data Chest x-ray: Radiologist's Impression: Close Chest X-Ray (Signed) Dony Mccullough - 10/26/24 Head/Neck CTA (Signed) Rafal Jackson - 09/14/24 Chest X-Ray (Signed) CowleyRafal noel - 09/14/[address] (Signed) CowleyHolley noele - 09/14/24 Echocardiogram Ultrasound (Signed) Carlos Grant - 06/14/[address] (Signed) Greg Leggett - 06/12/[address] (Signed) [place] - 05/19/24 Chest X-Ray (Signed) [place] - 05/19/24 PFT Result 04/24/[address] (Signed) Lev Heart - 03/01/24 Chest X-Ray (Signed) Benjamín Ding - 03/01/24 Chest X-Ray (Signed) Popeye Morris - 02/18/24 Brain MRI (Signed) Marco Antonio Gross - 01/19/[address] (Signed) Petey,Derrell - 01/19/24 Chest X-Ray (Signed) Linda Hester - 01/19/[address] (Signed) Nikole Trujillo - 12/13/23 Carotid Doppler Study (Signed) Rafal Jackson - 12/13/23 Chest X-Ray (Signed) Waleska Lux - 11/21/23 Chest X-Ray (Signed) Andrea Louise - 11/14/23 Brain MRI (Signed) Petey,Derrell - 11/11/[address] (Signed) Petey,Derrell - 11/11/23 Chest X-Ray (Signed) Petey,Derrell - 11/11/23 Echocardiogram Ultrasound (Signed) Jacques Grantu - 10/11/23 Chest X-Ray (Signed) Roschmann,Jaycob - 07/22/23 Echocardiogram Ultrasound (Signed) Carlos Grant - 06/05/23 Chest X-Ray (Signed) Roschmann,Jaycob - 05/21/23 Head/Neck CTA (Signed) Marco Antonio Gross - 03/14/23 Head/Neck CTA (Signed) Popeye Morris - 01/17/[address] (Signed) Eagle Ordonez - 01/17/23 Abdomen/Pelvis CT (Signed) Lucie Dao - 10/20/22 Scrotum Ultrasound (Signed) Waleska Lux - 08/19/[address] (Signed) Bobby Nowak - 08/09/22 Chest X-Ray (Signed) Linda Hester - 08/09/22 Chest X-Ray (Signed) Jaycob Mancilla - 08/06/22 Chest X-Ray (Signed) Olson,Fabio - 07/12/[address] (Signed) Popeye Morris - 07/02/22 Chest X-Ray (Signed) Derrell Angelo - 07/02/22 Brain MRI (Signed) Rafal Jackson - 06/29/22 Head/Neck CTA (Signed) OlsonFabio oh - 06/28/22 Chest X-Ray (Signed) Marco Antonio Gross - 06/28/22 Telemetry Strips 06/28/[address] (Signed) Marco Antonio Gross - 06/25/22 Chest X-Ray (Signed) Jason Moore - 10/24/21 Echocardiogram Ultrasound (Signed) Carlos Grant - 10/14/21 Chest X-Ray (Signed) Ishan Osorio - 06/28/[address] (Signed) Ishan Osorio - 06/28/21 Chest X-Ray (Signed) Shahida Elliott - 06/10/21 Chest X-Ray (Signed) Shahida Elliott - 04/02/[address] (Signed) Rafal Jackson - 03/15/21 Chest X-Ray (Signed) Marco Antonio Gross - 03/15/21 Abdomen/Pelvis CT (Addendum) Linda Hester - 01/28/[address] (Signed) Shahida Elliott - 12/24/20 Echocardiogram Ultrasound (Signed) Carlos Grant - 10/14/[address] (Signed) Ishan Osorio - 10/05/20 Telemetry Strips 10/05/[address] (Signed) Rafal Jackson - 08/29/20 Chest X-Ray (Signed) Shahida Elliott - 08/07/20 Echocardiogram Ultrasound (Signed) Jennifer Bradley - 07/19/20 Brain MRI (Signed) Holley Jacksone - 07/18/20 Telemetry Strips 07/18/20 Launch?Image [address] [address] XRay Report Signed Patient: Nestor Mercedes MR#: [id number] : 1940 Acct:[id number] Age/Sex: 84 / M Date of Service: 10/26/24 Loc: ED Accession Number: [id number] Procedure: XR chest 1V Ordering Provider: Nahomi Chavira D.O. PROCEDURE: XR CHEST 1V INDICATIONS: chest pain TECHNIQUE: One view of the chest was acquired. COMPARISON: [facility], , XR CHEST 1V, 09/14/2024, 16:33. FINDINGS: Surgical changes and devices: None. Lungs and pleura: Mild diffuse interstitial prominence and patchy bibasilar opacities. Small bilateral pleural effusions. No dense consolidations. No pneumothorax. Mediastinum: Mediastinal contours appear normal. Heart size is prominent. Bones and chest wall: No suspicious bony lesions. Overlying soft tissues appear unremarkable. IMPRESSION: Mild cardiomegaly, bilateral pleural effusions and diffuse interstitial prominence suggestive of pulmonary edema/CHF. No dense consolidation seen. Recommend follow up chest radiograph 4-6 weeks after treatment to document resolution of findings and/or return to baseline examination. Dictated by: Dony Mccullough M.D. on 10/26/2024 at 7:41 Approved by: Dony Mccullough M.D. on 10/26/2024 at 7:42 ECG Data Attestation: I personally reviewed and interpreted this ECG as follows: Prior ECG tracings: available for review Interpretation: EKG shows AFib rate of 99 QRS 84 QTC of 456, no acute ST elevation or depression appreciated, patient has multiple prior showing atrial fibrillation. MDM Narrative Medical decision making narrative: 84-year-old male complaining of little bit of cough shortness of breath patient did note a temperature of 101? F today. Does not little bit of crackles in his right base. Patient's labs seemed to support potentially CHF. Respiratory panel pending. Labs show normal white count hemoglobin and platelets predominance of neutrophils. Sodium is 135 electrolytes are otherwise appropriate creatinine is 1.10 glucose is 104 bilirubin is 1.9 with AST ALT and alk-phos of normal, troponin less than 0.012 with a BNP of 2270, patient has been chronically elevated but typically in the 18-1900 range EKG shows a rate of 99 atrial fibrillation no acute ST changes appreciated patient priors also appears similar. Chest x-ray shows mild cardiomegaly, bilateral pleural effusions and diffuse interstitial prominence suggesting pulmonary edema/CHF no dense consolidation. UA shows trace leukocyte esterase no nitrates, no red cells 1 white cell no squamous no bacteria. Respiratory panel is positive for entero/rhinovirus. Discussed with patient about starting a short course of diuretic but fevers or likely secondary to patient's viral illness. Discussed with patient he has an appointment on Monday with pulmonology. He prefers to hold off on diuretic I think this is appropriate some of his cough and shortness of breath could certainly be related his recent viral illness. He does not appear clinically fluid overloaded although it has a little bit of crackles in his bases. Patient's BNP is elevated but has a about a 300 point change from where he typically runs. He was not hypoxic, his exam is overall reassuring. At this time patient elects to hold off on starting any diuretics with some of his symptoms could certainly be from his viral illness he was follow up on Monday with pulmonology and will be re-evaluated at that time. Discussed with patient return precautions all questions answered. Discharge Plan Departure Patient Disposition: Home Clinical Impression: Rhinovirus infection, CHF (congestive heart failure) Activity Restrictions/Additional Instructions: You have tested positive for entero/rhinovirus this is viral illness it typically causes some respiratory symptoms typically passes and about 7-10 days. Your workup does show little bit of fluid overload and elevated BNP consistent with congestive heart failure, as discussed you have elected not to start a diuretic or water pill but share this information with building trades instructor on Monday and they can discuss if they feel it is appropriate to start one at that time. Your chest x-ray did show a little bit of congestive heart failure changes, your BNP was 2270 but has been around 1900 in the past. Continue with the acetaminophen up to a 1000 mg every 6 hours as needed for fevers. You can take honey or cough drops her [id number] anti cough medication as needed. Please return if you are having worsening symptoms increasing chest pain, shortness of breath, lightheadedness or passing out, new swelling of your extremities, persistent vomiting, new weakness changes in mentation or other new or concerning changes. Prescriptions: No Action multivitamin [Multiple Vitamins] 1 EACH tablet 1 tab PO DAILY Qty: 0 cholecalciferol (vitamin D3) [Vitamin D3] 2,000 UNIT tablet 2,000 unit PO DAILY Qty: 0 finasteride 5 mg tablet 5 mg PO Q OTHER DAY Qty: 45 3RF warfarin 5 mg tablet See Rx Instructions .ROUTE .COMPLEX Qty: 108 3RF Protocol: Dose Management Condition: Monday Dose/Route: 2.5 mg Instruction: 0.5 x 5 mg tablets Condition: Monday Dose/Route: 2.5 mg Instruction: 0.5 x 5 mg tablets Condition: Monday Dose/Route: 5 mg Instruction: 1 x 5 mg tablet Condition: Monday Dose/Route: 2.5 mg Instruction: 0.5 x 5 mg tablets Condition: Dose/Route: 2.5 mg Instruction: 0.5 x 5 mg tablets Condition: Monday Dose/Route: 2.5 mg Instruction: 0.5 x 5 mg tablets Condition: Monday Dose/Route: 5 mg Instruction: 1 x 5 mg tablet Protocol Text: Adjustment Start Date: 10/17/24 INR Value: 3.2 INR Date: 10/17/24 Recheck Date: 11/14/24 Dose Instruction: Take 1/2 tablet daily except on and Mon take 1 or as directed by doctor ; Rx Instructions: Take 5mg Monday and Monday and 2.5mg all other days, or as directed. tamsulosin 0.4 mg capsule 0.4 mg PO BID Qty: 180 3RF Rx Instructions: 30 minutes following the same meal each day melatonin 10 mg tablet 10 mg PO BEDTIME PRN metoprolol succinate 25 mg tablet extended release 24 hr 50 mg PO BEDTIME atorvastatin 20 mg tablet 20 mg PO DAILY Qty: 30 11RF Iron High Potency 27 mg tablet 27 mg PO DAILY Patient Comments: Iron High Potency 240mg (27mg iron) Ocuvite 30unit 5mg 150mg 1 cap PO DAILY metoprolol succinate 50 mg tablet extended release 24 hr 50 mg PO DAILY albuterol sulfate 90 mcg/actuation HFA aerosol inhaler 2 puff inhalation Q6H PRN (Reason: shortness of breath or wheezing) Qty: 8.5 6RF Referrals: Alejandro Pinto DO [Primary Care Provider] - Stand Alone Forms: Patient Portal/API/Survey
== END 2024-10-26 11:10 | disposition home or self-care (01) ==
PROVIDERS: Emergency Medicine; Emergency Provider Emergency Medicine; Family Provider Family Medicine; PCP Family Medicine
DX: B34.8 Other viral infections of unspecified site (principal); I11.0 Hypertensive heart disease with heart failure; I50.9 Heart failure, unspecified; I48.91 Unspecified atrial fibrillation; Z79.01 Long term (current) use of anticoagulants; Z87.891 Personal history of nicotine dependence
CPT/HCPCS: 36415; 71045; 80053; 81001; 82550; 82565; 83690; 83735; 83880; 84484; 85025; 85610; 85730; 87633; 93005; 99284

== ENCOUNTER → 2024-11-11 11:42 | Outpatient (CLI) | payer MEDICARE, OTHER, SELFPAY ==
[2023-03-15 10:23] VITALS: BMI 23.5
[2024-11-11 12:17] LABS: Blood Urea Nitrogen 24 mg/dL (9-20); Carbon Dioxide 26 mmol/L (22-32); Chloride 103 mmol/L (98-107); Estimated Glomerular Filt Rate 59 mL/min (>60); Glucose 97 mg/dL (80-110); HEMOLYSIS 18 (0-50); Potassium 4.4 mmol/L (3.4-5.1); Sodium 136 mmol/L (137-145)
[2024-11-11 12:27] LABS: NT-proBNP (BNP-Adult 18+) 1620 pg/mL (<450)
== END ==
PROVIDERS: Family Provider Family Medicine; PCP Family Medicine; Referring Provider Internal Medicine Cardiovascular Disease; Visit Provider Internal Medicine Cardiovascular Disease
DX: I50.32 Chronic diastolic (congestive) heart failure (principal)
CPT/HCPCS: 36415; 80048; 83880

== ENCOUNTER 2024-12-06 15:31 | Emergency (ER) | payer MEDICARE, OTHER, SELFPAY ==
[2023-03-15 10:23] VITALS: BMI 23.5
[2024-12-06] VITALS (41 sets, daily range): BP systolic 103–165; BP diastolic 55–82; PULSE 66–142; RESP 16–24; TEMP 36.3; O2SAT 91–100; BMI 23.5
--- NOTE | 2024-12-06 15:41 | DI.RAD.S_ITS ---
PROCEDURE: XR CHEST 1V INDICATIONS: Shortness of breath TECHNIQUE: One view of the chest was acquired. COMPARISON: Located Within [facility], CR, XR CHEST 1V, 10/26/2024, 7:27. Located Within [facility], CR, XR CHEST 1V, 09/14/2024, 16:33. FINDINGS: Surgical changes and devices: None. Lungs and pleura: Small bilateral pleural effusions. Prominent interstitial markings. Mediastinum: Mediastinal contours appear normal. Heart size is prominent. Bones and chest wall: No suspicious bony lesions. Overlying soft tissues appear unremarkable. IMPRESSION: Mild cardiomegaly with small bilateral pleural effusions and prominent interstitial markings. Findings are concerning for pulmonary edema/CHF. Dictated by: Andrea Louise M.D. on 12/06/2024 at 16:20 Approved by: Andrea Louise M.D. on 12/06/2024 at 16:25
--- NOTE | 2024-12-06 15:49 | EKG_ITS ---
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
[2024-12-06 16:34] LABS: INR 3.1 (0.9-1.3); Prothrombin Time 33.8 SECONDS (9.4-12.5)
[2024-12-06 16:36] LABS: Add Manual Diff / Slide Review NO; Basophils Absolute Auto 0 /uL (0-100); Basophils Percent Auto 0.5 % (0-2); Eosinophils Absolute Auto 100 /uL (0-450); Eosinophils Percent Auto 1.6 % (2-4); Hematocrit 42.1 % (41-53); Hemoglobin 14.2 g/dL (13.5-17.5); Lymphocytes Absolute Auto 1100 /uL (1100-4500); Lymphocytes Percent Auto 16.4 % (25-40); Mean Corpuscular HGB Conc 33.7 % (30-36); Monocytes Absolute Auto 600 /uL (0-900); Monocytes Percent Auto 8.7 % (3-14); Neutrophils Absolute Auto 4800 /uL (1500-7000); Neutrophils Percent Auto 72.8 % (50-75); Platelet Count 280 X10^3/uL (150-400); Red Blood Cell Count 4.57 X10^6/uL (4.5-5.9); Red Cell Distribution Width 14.9 % (11.6-14.8); White Blood Cell Count 6.7 X10^3/uL (4.5-11.0)
[2024-12-06 16:38] LABS: Lactate (Lactic Acid) 1.6 mmol/L (0.7-2.1)
[2024-12-06 16:39] LABS: Alanine Aminotransferase 38 IU/L (<50); Albumin 3.6 g/dL (3.5-5.0); Albumin Globulin Ratio 1.4 (1.0-2.8); Alkaline Phosphatase 73 U/L (38-126); Aspartate Aminotransferase 39 IU/L (17-59); BUN Creatinine Ratio 21.7 (6-22); Bilirubin Total 1.7 mg/dL (0.2-1.3); Blood Urea Nitrogen 26 mg/dL (9-20); Calcium 8.4 mg/dL (8.4-10.2); Carbon Dioxide 23 mmol/L (22-32); Chloride 108 mmol/L (98-107); Estimated Glomerular Filt Rate 59 mL/min (>60); Globulin 2.6 g/dL (1.7-4.1); Glucose 132 mg/dL (80-110); HEMOLYSIS 22 (0-50); Potassium 4.3 mmol/L (3.4-5.1); Sodium 138 mmol/L (137-145); Total Protein 6.2 g/dL (6.3-8.2)
[2024-12-06 16:50] LABS: NT-proBNP (BNP-Adult 18+) 1620 pg/mL (<450); Troponin I < 0.012 ng/mL (0.01-0.034)
[2024-12-06] MEDS: FUROSEMIDE 40 MG/4 ML VIAL IV (18:57)
--- NOTE | 2024-12-06 19:03 | ED_ITS ---
HPI - SOB/Dyspnea General Chief Complaint: Shortness of Breath/Dyspnea Stated Complaint: lightheaded, low oxygen, low BP, blurry vision Time Seen by Provider: 12/06/24 18:36 Source: patient Mode of arrival: Ambulatory Limitations: no limitations History of Present Illness HPI Narrative: 84-year-old male with history of chronic atrial fibrillation, chronic anticoagulation, history of aortic stenosis for which he is followed by cardiology Dr. Grant who saw him 2 weeks ago, has echocardiogram done every 6 months, last echocardiogram September 2024, anticipated echocardiogram February 2025, saw his production stage manager Dr. Rodríguez 2 weeks ago who felt his murmur sounded the same, no change in medications or follow up plan at that time. Taking his spironolactone and other chronic medications. He complains of a few days duration of increased shortness of breath over his baseline, having started 2 L of home oxygen 2 weeks ago prescribed by his regular doctor, for congestive heart failure indication. He denies lower extremity swelling. He denies fevers, chills, cough. He denies chest pain. Denies pain in his head. He had a little bit of dizziness earlier today that seems to have resolved without specific treatment. No focal weakness to face arm or leg. Related Data Home Medications Medication Instructions Recorded Confirmed multivitamin (Multiple Vitamins 1 tab PO DAILY ##0 03/06/13 11/15/24 tablet) cholecalciferol (vitamin D3) 50 2,000 unit PO DAILY #0 tabs 08/03/16 11/15/24 mcg (2,000 unit) tablet (Vitamin D3) Iron High Potency 27 mg PO DAILY 04/09/19 11/15/24 Ocuvite 30unit 5mg 150mg 1 cap PO DAILY 04/09/19 11/15/24 melatonin 10 mg tablet 10 mg PO BEDTIME PRN 01/25/23 11/15/24 metoprolol succinate 25 mg 50 mg PO BEDTIME 05/31/24 11/15/24 tablet,extended release 24 hr metoprolol succinate 50 mg 50 mg PO DAILY 05/31/24 11/15/24 tablet,extended release 24 hr atorvastatin 10 mg tablet 10 mg PO DAILY 10/28/24 11/15/24 Previous Rx's Medication Instructions Recorded finasteride 5 mg tablet 5 mg PO Q OTHER DAY #45 tabs 01/31/24 warfarin 5 mg tablet See Rx Instructions .Route 03/20/24 .COMPLEX #108 tabs tamsulosin 0.4 mg capsule 0.4 mg PO BID #180 caps 02/02/24 albuterol sulfate 90 mcg/actuation 2 puff inhalation Q6H PRN 05/31/24 aerosol inhaler shortness of breath or wheezing #8.5 grams empagliflozin 10 mg tablet 10 mg PO DAILY #90 tabs 11/14/24 spironolactone 25 mg tablet 12.5 mg (1/2 x 25 mg) PO DAILY #90 11/14/24 tabs Allergies Allergy/AdvReac Type Severity Reaction Status Date / Time No Known Drug Allergies Allergy Verified 12/06/24 15:36 Patient History Medical History (Updated 12/06/24 @ 21:57 by Lewis German MD) Hypoxia Somatic dysfunction of lower extremity Segmental and somatic dysfunction of abdomen and other regions Strain of right psoas muscle Anxiety about health Foot joint stiffness, bilateral Orthostatic hypotension Blurry vision, bilateral Insomnia COVID-19 virus infection Elevated random blood glucose level Aortic stenosis, severe Anticoagulated on warfarin Physician orders for life-sustaining treatment (POLST) form indicates patient wish for [id number]-[id number] status Benign prostatic hyperplasia with urinary obstruction Fatigue Erectile dysfunction History of elevated PSA Balance problem Left arm weakness Vitamin D deficiency Pelvic somatic dysfunction Segmental and somatic dysfunction of sacral region Segmental and somatic dysfunction of lumbar region Chronic bilateral low back pain without sciatica Somatic dysfunction of both lower extremities Foot stiffness Segmental and somatic dysfunction of thoracic region Segmental and somatic dysfunction of rib cage Cervical somatic dysfunction Cranial somatic dysfunction Diplopia Chronic atrial fibrillation (01/02/18) Essential hypertension (02/16/16) 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) Incomplete emptying of bladder (02/16/16) Atrial fibrillation with rapid ventricular response Surgical History Hx of cholecystectomy Status post cholecystectomy Family History Mother CVA (cerebral vascular accident) Father Diabetes mellitus Brother Renal failure Social History marital status: number of children: 1 household members: none occupational status: previously employed Previous occupational history: [employer] Smoking Status: Former smoker alcohol intake: former caffeine: Yes Smoking Status: Former smoker alcohol intake frequency: holidays/special occasions only Exam Narrative Exam Narrative: GENERAL: Well-developed patient, in mild distress. HEAD: Atraumatic. Normocephalic. EYES: Pupils equal round and reactive. Extraocular motions intact. No scleral icterus. No injection or drainage. ENT: Nose without bleeding, purulent drainage. Throat without erythema, tonsillar hypertrophy or exudate. Airway patent. Wearing nasal cannula 2 L oxygen. NECK: Trachea midline. Non tender CARDIOVASCULAR: Irregularly irregular cardiac rhythm, 2/6 systolic murmur left sternal border best, good peripheral pulses. RESPIRATORY: Clear to auscultation. Breath sounds equal bilaterally. No wheezes, rales, or rhonchi. GASTROINTESTINAL: Abdomen soft, non-tender, nondistended. EXTREMITIES: No edema or joint tenderness. No edema either lower extremity on examination. BACK: Nontender without deformity or crepitance. No flank tenderness. NEURO: AOx3. Motor functions grossly nonfocal SKIN: No rash or erythema of visible areas Initial Vital Signs Initial Vital Signs: Vital Signs Temperature 97.3 F L 12/06/24 15:36 Pulse Rate 66 12/06/24 15:36 Respiratory Rate 18 12/06/24 15:36 Blood Pressure 129/59 L 12/06/24 15:36 Pulse Oximetry 91 12/06/24 15:36 Oxygen Delivery Method Nasal Cannula 12/06/24 15:36 Oxygen Flow Rate 2 12/06/24 15:36 Course Orders Ordered: ED Orders 12/06/24 19:06 Covid-19 + FLU A/B + RSV - PCR Stat Discontinued Medications Furosemide (Furosemide 40 Mg/4 Ml Vial) 40 mg IV NOW ONE Stop: 12/06/24 18:38 Last Admin: 12/06/24 18:57 Dose: 40 mg Documented By: GABRIEL Vital Signs Vital signs: Vital Signs - 8 hr 12/06/24 18:10 12/06/24 18:10 12/06/24 18:20 Pulse Rate 78 85 Respiratory Rate 19 18 Blood Pressure 122/61 Pulse Oximetry 97 97 Oxygen Delivery Method Oxygen Flow Rate 12/06/24 18:20 12/06/24 18:30 12/06/24 18:31 Pulse Rate 86 Respiratory Rate 24 Blood Pressure 115/59 L 148/69 H Pulse Oximetry 98 Oxygen Delivery Method Oxygen Flow Rate 12/06/24 18:31 12/06/24 18:40 12/06/24 18:40 Pulse Rate 83 78 Respiratory Rate 20 20 Blood Pressure 118/69 Pulse Oximetry 98 97 Oxygen Delivery Method Oxygen Flow Rate 12/06/24 18:50 12/06/24 18:50 12/06/24 19:00 Pulse Rate 80 81 Respiratory Rate 20 24 Blood Pressure 137/63 Pulse Oximetry 98 98 Oxygen Delivery Method Oxygen Flow Rate 12/06/24 19:00 12/06/24 19:11 12/06/24 19:11 Pulse Rate Respiratory Rate 20 Blood Pressure 127/78 124/74 Pulse Oximetry 97 Oxygen Delivery Method Oxygen Flow Rate 12/06/24 19:15 12/06/24 19:15 12/06/24 19:21 Pulse Rate 82 Respiratory Rate 22 Blood Pressure 160/79 H 135/60 Pulse Oximetry 97 Oxygen Delivery Method Oxygen Flow Rate 12/06/24 19:21 12/06/24 19:30 12/06/24 19:31 Pulse Rate 89 Respiratory Rate 24 23 Blood Pressure 165/72 H Pulse Oximetry 96 98 Oxygen Delivery Method Oxygen Flow Rate 12/06/24 19:31 12/06/24 19:41 12/06/24 19:41 Pulse Rate 86 Respiratory Rate 22 24 Blood Pressure 161/72 H Pulse Oximetry 98 97 Oxygen Delivery Method Oxygen Flow Rate 12/06/24 19:51 12/06/24 19:51 12/06/24 20:00 Pulse Rate 142 H 87 Respiratory Rate Blood Pressure 110/68 Pulse Oximetry 98 98 Oxygen Delivery Method Oxygen Flow Rate 12/06/24 20:01 12/06/24 20:01 12/06/24 20:11 Pulse Rate Respiratory Rate Blood Pressure 124/63 103/55 L Pulse Oximetry 98 Oxygen Delivery Method Oxygen Flow Rate 12/06/24 20:11 12/06/24 20:30 12/06/24 20:40 Pulse Rate 86 79 Respiratory Rate Blood Pressure 141/82 H Pulse Oximetry 98 100 100 Oxygen Delivery Method Oxygen Flow Rate 12/06/24 20:50 12/06/24 21:00 12/06/24 21:11 Pulse Rate 89 87 82 Respiratory Rate Blood Pressure 129/62 142/71 H 140/65 Pulse Oximetry 100 100 100 Oxygen Delivery Method Oxygen Flow Rate 12/06/24 21:20 12/06/24 21:30 12/06/24 21:41 Pulse Rate 91 H 88 100 H Respiratory Rate 18 Blood Pressure 136/68 137/65 131/71 Pulse Oximetry 100 100 97 Oxygen Delivery Method Nasal Cannula Oxygen Flow Rate 2 MDM - SOB/Dyspnea Lab Data Attestation: I reviewed the patient's lab results. Lab results narrative: White blood cell count 6700, hemoglobin 14.2, BUN 26 with creatinine 1.2, glucose 132. Electrolytes unremarkable. T bili 1.7 with other liver functions unremarkable. BNP 1600 elevated similar to prior values, some prior values further elevated then current. Troponin negative/unmeasurable. 12/06/24 16:09 12/06/24 16:09 Labs: Lab Results 12/06/24 12/06/24 Range/Units 16:09 19:06 WBC 6.7 (4.5-11.0) X10^3/uL RBC 4.57 (4.5-5.9) X10^6/uL Hgb 14.2 (13.5-17.5) g/dL Hct 42.1 (41-53) % MCV 92.0 (80-100) fL MCH 31.0 (26-34) PG MCHC 33.7 (30-36) % RDW 14.9 H (11.6-14.8) % Plt Count 280 (150-400) X10^3/uL Neut % (Auto) 72.8 (50-75) % Lymph % (Auto) 16.4 L (25-40) % [place] % (Auto) 8.7 (3-14) % Eos % (Auto) 1.6 L (2-4) % Baso % (Auto) 0.5 (0-2) % Neut # (Auto) 4800 (0117-6347) /uL Lymph # (Auto) 1100 (7622-4469) /uL [place] # (Auto) 600 (0-900) /uL Eos # (Auto) 100 (0-450) /uL Baso # (Auto) 0 (0-100) /uL PT 33.8 H (9.4-12.5) SECONDS INR 3.1 H (0.9-1.3) Sodium 138 (137-145) mmol/L Potassium 4.3 (3.4-5.1) mmol/L Chloride 108 H (98-107) mmol/L Carbon Dioxide 23 (22-32) mmol/L BUN 26 H (9-20) mg/dL Creatinine 1.20 (0.66-1.25) mg/dL Estimated GFR 59 L (>60) mL/min BUN/Creatinine Ratio 21.7 (6-22) Glucose 132 H (80-110) mg/dL Lactate 1.6 (0.7-2.1) mmol/L Calcium 8.4 (8.4-10.2) mg/dL Total Bilirubin 1.7 H (0.2-1.3) mg/dL AST 39 (17-59) IU/L ALT 38 (<50) IU/L Alkaline Phosphatase 73 (38-126) U/L Troponin I < 0.012 (0.01-0.034) ng/mL NT-Pro-B Natriuret Pep 1620 H (<450) pg/mL Total Protein 6.2 L (6.3-8.2) g/dL Albumin 3.6 (3.5-5.0) g/dL Globulin 2.6 (1.7-4.1) g/dL Albumin/Globulin Ratio 1.4 (1.0-2.8) SARS-CoV-2 (PCR) Negative (Negative) Influenza A (RT-PCR) Flu a negative (NEGATIVE) Influenza B (RT-PCR) Flu b negative (NEGATIVE) RSV (PCR) Negative (Negative) Urine Dip Bedside Urine Glucose 1000 mg/dl Bedside Urine Bilirubin - Negative Bedside Urine Ketone - Negative Urine Specific [place] 1.025 Bedside Urine Occult Blood - Negative Bedside Urine pH 5.5 Bedside Urine Protein - Negative Bedside Urine Urobilinogen - Negative Bedside Urine Nitrite - Negative Bedside Urine Leukocytes - Negative Esterase Imaging Data Chest x-ray: Radiologist's Impression: [address] [address] XRay Report Signed Patient: Nestor Mercedes MR#: [id number] : 1940 Acct:[id number] Age/Sex: 84 / M Date of Service: 12/06/24 Loc: ED Accession Number: [id number] Procedure: XR chest 1V Ordering Provider: Cleopatra Wick D.O. PROCEDURE: XR CHEST 1V INDICATIONS: Shortness of breath TECHNIQUE: One view of the chest was acquired. COMPARISON: [facility], CR, XR CHEST 1V, 10/26/2024, 7:27. [facility], CR, XR CHEST 1V, 09/14/2024, 16:33. FINDINGS: Surgical changes and devices: None. Lungs and pleura: Small bilateral pleural effusions. Prominent interstitial markings. Mediastinum: Mediastinal contours appear normal. Heart size is prominent. Bones and chest wall: No suspicious bony lesions. Overlying soft tissues appear unremarkable. IMPRESSION: Mild cardiomegaly with small bilateral pleural effusions and prominent interstitial markings. Findings are concerning for pulmonary edema/CHF. Dictated by: Andrea Louise M.D. on 12/06/2024 at 16:20 Approved by: Andrea Louise M.D. on 12/06/2024 at 16:25 ECG Data Attestation: I personally reviewed and interpreted this ECG as follows: Interpretation: Atrial fibrillation with ventricular rate 94, no obvious ST segment elevation or depression changes. T-wave inversion lead 3 noted. Flat in lead F, upright in lead 2. QRS 84, QTC 442. MDM Narrative Medical decision making narrative: 84-year-old male with history of atrial fibrillation, congestive heart failure, aortic stenosis, chronic hypoxia for the last couple of weeks started as an outpatient by PCP, followed by cardiology Dr. Grant, feeling more shortness of breath. Normal oxygenation on his most recent baseline 2 liters/minute home oxygen. Lungs clear, no peripheral edema. Taking spironolactone. Screening chest x-ray suggestive of fluid overload, seems well compensated at present. EKG and troponin negative. Records review. Prior available echocardiogram 06/14/2024. Impressions: ?Normal left ventricular size, wall motion, and systolic function, EF 55-60%. Mildly enlarged right ventricle with mildly reduced function. Left atrium is severely dilated. There is calcific moderate aortic stenosis (valve area 1 cm2, mean gradient 22 mm Hg, severity ratio 0.28). Compared to echo done 10/11/2023 no significant change.? Read by Dr. Grant. IV Khadar, had urination multiple times, symptoms improved. Ambulatory, feels like he can go home, on his usual 2 liter/minute home oxygen regimen. Advised contacting his Cardiology office Monday in order to see if Aldactone dose should be increased, or other treatment recommendations. Return precautions. Discharged home per patient request. Discharge Plan Departure Patient Disposition: Home Clinical Impression: Shortness of breath, Congestive heart failure, History of aortic stenosis Activity Restrictions/Additional Instructions: History of congestive heart failure, history of chronic atrial fibrillation, some shortness of breath today, having recently started spironolactone water pill medication in October 2024 prescribed from your production stage manager Dr. Grant. You also was started on oxygen at 2 L by your regular doctor a couple of weeks ago. Your oxygen level on 2 L of oxygen flow was quite good today. Your lungs were clear, you did not seem to have edema/swelling to your legs. You laboratory studies and your chest x-ray was suggestive of congestive heart failure, however you seemed fairly well compensated at this time. EKG and blood testing not suggestive of heart attack at this time. IV Lasix/furosemide dose given, making you urinate a few times while in the emergency department. Continue your low dose spironolactone water pill medication at the same dose for now. Continue your chronic medications at the same dose for now. Advised contacting your production stage manager Monday after the weekend to see if the spironolactone dose should be increased. History of aortic stenosis noted, with reported no change in murmur per your production stage manager when he listened in October. Follow up with your regular provider and your production stage manager early this next week. Return earlier to this/nearest emergency department for any change worsening symptoms or any concerns prior Prescriptions: No Action multivitamin [Multiple Vitamins] 1 EACH tablet 1 tab PO DAILY Qty: 0 cholecalciferol (vitamin D3) [Vitamin D3] 2,000 UNIT tablet 2,000 unit PO DAILY Qty: 0 finasteride 5 mg tablet 5 mg PO Q OTHER DAY Qty: 45 3RF warfarin 5 mg tablet See Rx Instructions .ROUTE .COMPLEX Qty: 108 3RF Protocol: Dose Management Condition: Monday (Week One) Dose/Route: 2.5 mg Instruction: 0.5 x 5 mg tablets Condition: Monday Dose/Route: 2.5 mg Instruction: 0.5 x 5 mg tablets Condition: Monday Dose/Route: 5 mg Instruction: 1 x 5 mg tablet Condition: Monday Dose/Route: 2.5 mg Instruction: 0.5 x 5 mg tablets Condition: Dose/Route: 0 mg Instruction: 0 tablets Condition: Monday Dose/Route: 2.5 mg Instruction: 0.5 x 5 mg tablets Condition: Monday Dose/Route: 5 mg Instruction: 1 x 5 mg tablet Condition: Monday (Week Two) Dose/Route: 2.5 mg Instruction: 0.5 x 5 mg tablets Condition: Monday Dose/Route: 2.5 mg Instruction: 0.5 x 5 mg tablets Condition: Monday Dose/Route: 5 mg Instruction: 1 x 5 mg tablet Condition: Monday Dose/Route: 2.5 mg Instruction: 0.5 x 5 mg tablets Condition: Dose/Route: 2.5 mg Instruction: 0.5 x 5 mg tablets Condition: Monday Dose/Route: 2.5 mg Instruction: 0.5 x 5 mg tablets Condition: Monday Dose/Route: 5 mg Instruction: 1 x 5 mg tablet Protocol Text: Adjustment Start Date: 11/28/24 INR Value: 2.2 INR Date: 11/28/24 Recheck Date: 12/26/24 Dose Instruction: Take 1/2 tablet daily except on and Mon take 1 or as directed by doctor ; Rx Instructions: Take 5mg Monday and Monday and 2.5mg all other days, or as directed. tamsulosin 0.4 mg capsule 0.4 mg PO BID Qty: 180 3RF Rx Instructions: 30 minutes following the same meal each day melatonin 10 mg tablet 10 mg PO BEDTIME PRN metoprolol succinate 25 mg tablet extended release 24 hr 50 mg PO BEDTIME spironolactone 25 mg tablet 12.5 mg PO DAILY Qty: 90 0RF empagliflozin 10 mg tablet 10 mg PO DAILY Qty: 90 0RF Iron High Potency 27 mg tablet 27 mg PO DAILY Patient Comments: Iron High Potency 240mg (27mg iron) Ocuvite 30unit 5mg 150mg 1 cap PO DAILY metoprolol succinate 50 mg tablet extended release 24 hr 50 mg PO DAILY albuterol sulfate 90 mcg/actuation HFA aerosol inhaler 2 puff inhalation Q6H PRN (Reason: shortness of breath or wheezing) Qty: 8.5 6RF atorvastatin 10 mg tablet 10 mg PO DAILY Referrals: Carlos Grant MD [Physician] - Alejandro Pinto DO [Primary Care Provider] - Stand Alone Forms: Patient Portal/API/Survey
--- NOTE | 2024-12-06 20:17 | PC.NURSE ---
on initial assessment, the patient was not complaining of anything other than lightheadedness when standing. He denied SOB to me when he was in the room. His lungs sounded clear bilaterally and throughout and he does not appear to be in distress. His o2 sat was 98 % on 2L NC.
--- NOTE | 2024-12-06 20:33 | PC.NURSE ---
patient was able to ambulate down the avalos and stated that he feels about the same as when he came in but feels like he can safely go home and take care of himself.
[2024-12-06 21:03] LABS: Influenza A - CEPHEID Flu A NEGATIVE (NEGATIVE); Influenza B - CEPHEID Flu B NEGATIVE (NEGATIVE); Respiratory Syncytial Virus Negative (Negative)
[2024-12-06 21:24] LABS: COVID-19 CEPHEID 4-PLEX PCR Negative (Negative)
== END 2024-12-06 22:00 | disposition home or self-care (01) ==
PROVIDERS: Emergency Medicine; Emergency Provider Emergency Medicine; Family Provider Family Medicine; PCP Family Medicine
DX: I50.9 Heart failure, unspecified (principal); R06.02 Shortness of breath; R42 Dizziness and giddiness; I95.9 Hypotension, unspecified; I48.91 Unspecified atrial fibrillation; Z79.01 Long term (current) use of anticoagulants; Z87.891 Personal history of nicotine dependence; I51.7 Cardiomegaly; Z86.16 Personal history of COVID-19; I10 Essential (primary) hypertension; Z86.79 Personal history of other diseases of the circulatory system; Z87.898 Personal history of other specified conditions
CPT/HCPCS: 0241U; 36415; 71045; 80053; 81003; 83605; 83880; 84484; 85025; 85610; 93005; 96374; 99285; J1940

== ENCOUNTER 2024-12-13 13:31 | Emergency (ER) | payer MEDICARE, OTHER, SELFPAY ==
[2023-03-15 10:23] VITALS: BMI 23.5
[2024-12-13] VITALS (16 sets, daily range): BP systolic 123–171; BP diastolic 65–101; PULSE 71–108; RESP 17–26; TEMP 36.4; O2SAT 93–100; BMI 23.5
--- NOTE | 2024-12-13 13:44 | DI.RAD.S_ITS ---
PROCEDURE: XR CHEST 1V INDICATIONS: Shortness of breath TECHNIQUE: One view of the chest was acquired. COMPARISON: [facility], CR, XR CHEST 1V, 12/06/2024, 15:43. FINDINGS: Surgical changes and devices: None. Lungs and pleura: There is blunting of the costophrenic angles bilaterally with hazy opacity in the bases relatively unchanged. Mediastinum: Mediastinal contours appear normal. Heart size is normal. Bones and chest wall: No suspicious bony lesions. Overlying soft tissues appear unremarkable. IMPRESSION: Hazy bibasilar opacities relatively unchanged possibly representing pneumonia versus edema. Dictated by: Linda Hester M.D. on 12/13/2024 at 14:55 Approved by: Linda Hester M.D. on 12/13/2024 at 14:56
--- NOTE | 2024-12-13 13:57 | EKG_ITS ---
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
--- NOTE | 2024-12-13 13:58 | PC.NURSE ---
Patient here in department for increasing shortness of breath and dizziness/ lightheadedness whenever he ambulates. Patient at baseline is on 2L NC. Patient had five second run of Vtach, Provider Grisel murguia
--- NOTE | 2024-12-13 14:09 | ED.SOB ---
HPI - SOB/Dyspnea General Chief Complaint: Shortness of Breath/Dyspnea Stated Complaint: Light headed/low oxygen/SOB Time Seen by Provider: 12/13/24 14:09 Source: patient Mode of arrival: Ambulatory Limitations: no limitations History of Present Illness HPI Narrative: Patient with history of AFib on Coumadin aortic stenosis follow up by Dr. Rodríguez of Cardiology, presents to the ED from home for evaluation of persistent lightheadedness, shortness of breath, weakness ongoing persistent for the past several months but worsening over the past few days. Was seen here for similar symptoms on 12/06/2024. Patient does require 2 L nasal cannula at baseline. Patient states symptoms did not get any better therefore decided come back into the ED for further evaluation treatment. Patient denies any current chest pain nausea vomiting abdominal pain or any other GI/ symptoms at this time. Related Data Home Medications Medication Instructions Recorded Confirmed multivitamin (Multiple Vitamins 1 tab PO DAILY ##0 03/06/13 12/12/24 tablet) cholecalciferol (vitamin D3) 50 2,000 unit PO DAILY #0 tabs 08/03/16 12/12/24 mcg (2,000 unit) tablet (Vitamin D3) Iron High Potency 27 mg PO DAILY 04/09/19 12/12/24 Ocuvite 30unit 5mg 150mg 1 cap PO DAILY 04/09/19 12/12/24 melatonin 10 mg tablet 10 mg PO BEDTIME PRN 01/25/23 12/12/24 metoprolol succinate 25 mg 50 mg PO BEDTIME 05/31/24 12/12/24 tablet,extended release 24 hr metoprolol succinate 50 mg 50 mg PO DAILY 05/31/24 12/12/24 tablet,extended release 24 hr atorvastatin 10 mg tablet 10 mg PO DAILY 10/28/24 12/12/24 Previous Rx's Medication Instructions Recorded finasteride 5 mg tablet 5 mg PO Q OTHER DAY #45 tabs 01/31/24 warfarin 5 mg tablet See Rx Instructions .Route 01/31/24 .COMPLEX #108 tabs tamsulosin 0.4 mg capsule 0.4 mg PO BID #180 caps 02/02/24 albuterol sulfate 90 mcg/actuation 2 puff inhalation Q6H PRN 05/31/24 aerosol inhaler shortness of breath or wheezing #8.5 grams empagliflozin 10 mg tablet 10 mg PO DAILY #90 tabs 11/14/24 spironolactone 25 mg tablet 12.5 mg (1/2 x 25 mg) PO DAILY #90 11/14/24 tabs doxycycline hyclate 100 mg capsule 100 mg PO BID 5 days #10 caps 12/13/24 Allergies Allergy/AdvReac Type Severity Reaction Status Date / Time No Known Drug Allergies Allergy Verified 12/12/24 13:36 Review of Systems Review of Systems Narrative: General: Denies fever, chills, weight loss HEENT: Denies headache, eye drainage, eye irritation, head trauma, sore throat, voice change Cardiovascular: Denies any chest pain, palpitations, shortness of breath, tachycardia Respiratory: Positive shortness of breath, denies cough, wheeze, stridor GI/: Denies any abdominal pain, nausea, vomiting, diarrhea, bright red blood per rectum, melanotic stools, urinary frequency, urinary retention, dysuria, hematuria MSK: Denies any joint pain, muscle pains, swelling Skin: Denies any rashes, lesions, discoloration Neuro: Denies any headache, lightheadedness, dizziness, fainting, weakness Psych: Denies SI/HI Patient History Medical History (Updated 12/13/24 @ 17:11 by Moiz Recinos DO) Hypoxia Somatic dysfunction of lower extremity Segmental and somatic dysfunction of abdomen and other regions Strain of right psoas muscle Anxiety about health Foot joint stiffness, bilateral Orthostatic hypotension Blurry vision, bilateral Insomnia COVID-19 virus infection Elevated random blood glucose level Aortic stenosis, severe Anticoagulated on warfarin Physician orders for life-sustaining treatment (POLST) form indicates patient wish for gv-[id number] status Benign prostatic hyperplasia with urinary obstruction Fatigue Erectile dysfunction History of elevated PSA Balance problem Left arm weakness Vitamin D deficiency Pelvic somatic dysfunction Segmental and somatic dysfunction of sacral region Segmental and somatic dysfunction of lumbar region Chronic bilateral low back pain without sciatica Somatic dysfunction of both lower extremities Foot stiffness Segmental and somatic dysfunction of thoracic region Segmental and somatic dysfunction of rib cage Cervical somatic dysfunction Cranial somatic dysfunction Diplopia Chronic atrial fibrillation (01/02/18) Essential hypertension (02/16/16) 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) Incomplete emptying of bladder (02/16/16) Atrial fibrillation with rapid ventricular response Surgical History Hx of cholecystectomy Status post cholecystectomy Family History Mother CVA (cerebral vascular accident) Father Diabetes mellitus Brother Renal failure Social History marital status: number of children: 1 household members: none occupational status: previously employed Previous occupational history: [email or web address] Smoking Status: Former smoker alcohol intake: former caffeine: Yes Smoking Status: Former smoker alcohol intake frequency: holidays/special occasions only Exam Narrative Exam Narrative: General: Cooperative, comfortable, well-developed, not in acute distress HEENT: Normocephalic, atraumatic, PERRLA, normal sclera, eyelids normal, Neck: Active full range of motion, atraumatic Chest: Normal to inspection, negative crepitus, no overlying erythema ecchymosis Respiratory: Onto L nasal cannula, this is his baseline, Normal respiratory effort, not in acute respiratory distress, clear to auscultation bilaterally negative cough, wheeze, tachypnea, rhonchi, rales Cardiology: Regular rate rhythm negative gallop, murmur, rubs GI/: Normal to inspection, soft, nonrigid, no tenderness to palpation, exam deferred MSK: Full range of active range of motion of all 4 extremities, atraumatic Skin: No rashes lesions noted Neuro: Alert awake oriented x3, moves all 4 extremities spontaneously, cranial nerves intact, able to answer all questions appropriately follows commands appropriately Psych: Cooperative, negative suicidal or homicidal ideations Initial Vital Signs Initial Vital Signs: Vital Signs Temperature 97.6 F 12/13/24 13:35 Pulse Rate 71 12/13/24 13:35 Respiratory Rate 17 12/13/24 13:35 Blood Pressure 123/70 12/13/24 13:35 Pulse Oximetry 96 12/13/24 13:35 Oxygen Delivery Method Nasal Cannula 12/13/24 13:35 Oxygen Flow Rate 2 12/13/24 13:35 Course Orders Ordered: ED Orders 12/13/24 13:44 XR chest 1V Stat EKG-12 Lead Stat Measure peak expiratory flow ONCE RT Consult Eval and Treat NOW 12/13/24 13:51 Complete Blood Count AUTO DIFF Stat Comprehensive Metabolic Panel Stat Lactate (Lactic Acid) Stat NT-proBNP (BNP-Adult 18+) Stat Prothrombin Time INR Stat Troponin I Stat 12/13/24 14:12 CT angio chest PE protocol Stat CT angio head and neck Stat CT head/brain wo con Stat Discontinued Medications Azithromycin (Azithromycin 250 Mg Tablet) 500 mg PO NOW ONE Stop: 12/13/24 17:10 Vital Signs Vital signs: Vital Signs - 8 hr 12/13/24 13:35 12/13/24 13:41 12/13/24 13:42 Temperature 97.6 F Pulse Rate 71 80 Respiratory Rate 17 Blood Pressure 123/70 123/70 Pulse Oximetry 96 98 Oxygen Delivery Method Nasal Cannula Oxygen Flow Rate 2 12/13/24 14:00 12/13/24 14:00 12/13/24 14:43 Temperature Pulse Rate 77 79 Respiratory Rate 17 Blood Pressure 133/65 Pulse Oximetry 100 100 Oxygen Delivery Method Oxygen Flow Rate 2 12/13/24 14:52 12/13/24 14:52 12/13/24 15:00 Temperature Pulse Rate 78 78 Respiratory Rate 25 H 20 Blood Pressure 142/67 H Pulse Oximetry 100 Oxygen Delivery Method Nasal Cannula Oxygen Flow Rate 2 12/13/24 15:00 12/13/24 15:30 12/13/24 15:31 Temperature Pulse Rate 108 H Respiratory Rate Blood Pressure 126/75 126/101 H Pulse Oximetry 96 Oxygen Delivery Method Oxygen Flow Rate 12/13/24 15:31 12/13/24 15:33 12/13/24 15:33 Temperature Pulse Rate 107 H 82 Respiratory Rate 21 Blood Pressure 148/82 H Pulse Oximetry 93 100 Oxygen Delivery Method Nasal Cannula Nasal Cannula Oxygen Flow Rate 2 2 12/13/24 16:00 12/13/24 16:00 12/13/24 16:30 Temperature Pulse Rate 78 75 Respiratory Rate 22 21 Blood Pressure 131/75 Pulse Oximetry 100 100 Oxygen Delivery Method Nasal Cannula Oxygen Flow Rate 2 12/13/24 16:31 12/13/24 16:31 Temperature Pulse Rate 79 Respiratory Rate Blood Pressure 171/80 H Pulse Oximetry 99 Oxygen Delivery Method Oxygen Flow Rate MDM - SOB/Dyspnea Differential Diagnosis Differential diagnosis: Likely other (ACS, pneumonia, CHF exacerbation, electrolyte abnormality) Lab Data 12/13/24 13:51 12/13/24 13:51 Labs: Lab Results 12/13/24 Range/Units 13:51 WBC 7.4 (4.5-11.0) X10^3/uL RBC 4.72 (4.5-5.9) X10^6/uL Hgb 14.6 (13.5-17.5) g/dL Hct 43.8 (41-53) % MCV 92.9 (80-100) fL MCH 31.0 (26-34) PG MCHC 33.4 (30-36) % RDW 14.8 (11.6-14.8) % Plt Count 275 (150-400) X10^3/uL Neut % (Auto) 74.5 (50-75) % Lymph % (Auto) 14.0 L (25-40) % [place] % (Auto) 8.9 (3-14) % Eos % (Auto) 2.1 (2-4) % Baso % (Auto) 0.5 (0-2) % Neut # (Auto) 5500 (7950-9576) /uL Lymph # (Auto) 1000 L (6924-6109) /uL [place] # (Auto) 700 (0-900) /uL Eos # (Auto) 200 (0-450) /uL Baso # (Auto) 0 (0-100) /uL PT 34.3 H (9.4-12.5) SECONDS INR 3.1 H (0.9-1.3) Sodium 137 (137-145) mmol/L Potassium 4.5 (3.4-5.1) mmol/L Chloride 105 (98-107) mmol/L Carbon Dioxide 26 (22-32) mmol/L BUN 22 H (9-20) mg/dL Creatinine 1.38 H (0.66-1.25) mg/dL Estimated GFR 50 L (>60) mL/min BUN/Creatinine Ratio 15.9 (6-22) Glucose 91 (80-110) mg/dL Lactate 0.8 (0.7-2.1) mmol/L Calcium 8.7 (8.4-10.2) mg/dL Total Bilirubin 2.0 H (0.2-1.3) mg/dL AST 50 (17-59) IU/L ALT 43 (<50) IU/L Alkaline Phosphatase 80 (38-126) U/L Troponin I < 0.012 (0.01-0.034) ng/mL NT-Pro-B Natriuret Pep 1860 H (<450) pg/mL Total Protein 6.8 (6.3-8.2) g/dL Albumin 3.9 (3.5-5.0) g/dL Globulin 2.9 (1.7-4.1) g/dL Albumin/Globulin Ratio 1.3 (1.0-2.8) Imaging Data Chest x-ray: Radiologist's Impression: [address] [address] XRay Report Signed Patient: Nestor Mercedes MR#: [id number] : 1940 Acct:[id number] Age/Sex: 84 / M Date of Service: 12/13/24 Loc: ED Accession Number: [id number] Procedure: XR chest 1V Ordering Provider: Moiz Recinos D.O. PROCEDURE: XR CHEST 1V INDICATIONS: Shortness of breath TECHNIQUE: One view of the chest was acquired. COMPARISON: [facility], CR, XR CHEST 1V, 12/06/2024, 15:43. FINDINGS: Surgical changes and devices: None. Lungs and pleura: There is blunting of the costophrenic angles bilaterally with hazy opacity in the bases relatively unchanged. Mediastinum: Mediastinal contours appear normal. Heart size is normal. Bones and chest wall: No suspicious bony lesions. Overlying soft tissues appear unremarkable. IMPRESSION: Hazy bibasilar opacities relatively unchanged possibly representing pneumonia versus CT scan - chest: Radiologist's Impression: [address] [address] [address] Scan Report Signed Patient: Nestor Mercedes MR#: [id number] : 1940 Acct:[id number] Age/Sex: 84 / M Date of Service: 12/13/24 Loc: ED Accession Number: [id number] Procedure: CT angio chest PE protocol Ordering Provider: Moiz Recinos D.O. PROCEDURE: CT ANGIO CHEST PE PROTOCOL INDICATIONS: sob TECHNIQUE: After the administration of intravenous contrast, 2 mm thick sections acquired from the pulmonary apices to the posterior costophrenic angles. 3-dimensional maximum intensity projection (MIP) coronal and sagittal reformats were then acquired through the thorax. For radiation dose reduction, the following was used: automated exposure control, adjustment of mA and/or kV according to patient size. COMPARISON: [facility], CT, CT CHEST HIGH RESOLUTION, 06/12/2024, 11:45. CT, CT CHEST WO CON, 12/13/2023, 13:05. [facility], CR, XR CHEST 1V, 12/13/2024, 14:28. FINDINGS: Image quality: Diagnostic. Pulmonary arteries: Pulmonary arteries are normal in size, and demonstrate no intraluminal filling defects to suggest central pulmonary embolism. Lower Neck: No enlarged lymph nodes. Thyroid: No thyroid nodules which require sonographic follow up, per consensus guidelines. Axillae: No enlarged lymph nodes. Chest Wall: Unremarkable. Bones: Unremarkable. Lungs and Pleura: Bilateral dependent changes are present at the bases. Changes of chronic interstitial pulmonary to cheese including peripheral reticular opacities are present. Small nodular opacities are present in the left upper lobe. Calcified pleural plaques suggestive of prior asbestosis exposure. Heart: Heart size is enlarged. No pericardial effusion. Thoracic Vessels: Ascending thoracic aorta measures 4.8 cm relatively unchanged. Mediastinum and [place]: Borderline mediastinal enlarged lymph nodes. Esophagus: No wall thickening. No hiatal hernia. Upper Abdomen: Visualized upper abdomen solid organs and bowel loops appear normal. IMPRESSION: No pulmonary embolus. Dependent changes are present the bases. Small nodular clusters in the right upper lobe possibly related to atypical infection or inflammation such as mycobacterial or fungal. CT scan - head: Radiologist's Impression: [place] [address] CT Scan Report Signed Patient: Nestor Mercedes MR#: [id number] : 1940 Acct:[id number] Age/Sex: 84 / M Date of Service: 12/13/24 Loc: ED Accession Number: [id number] Procedure: CT head/brain wo con Ordering Provider: Moiz Recinos D.O. PROCEDURE: CT HEAD/BRAIN WO CON INDICATIONS: Lightheaded, dizzy TECHNIQUE: Noncontrast 4.5 mm thick angled axial sections acquired from the foramen magnum to the vertex, with coronal and sagittal reformats. For radiation dose reduction, the following was used: automated exposure control, adjustment of mA and/or kV according to patient size. COMPARISON: [facility], CT, CT HEAD/BRAIN WO CON, 05/20/2024, 0:11. FINDINGS: Image quality: Diagnostic. CSF spaces: Basal cisterns are patent. No extra-axial fluid collections. The ventricles are symmetric in size and shape. Brain: No intracranial bleeds or masses. There is cerebral volume loss for age, with resultant ventricular and sulcal prominence. There are periventricular and deep white matter chronic small vessel ischemic changes. There is intracranial internal carotid artery atherosclerosis. Skull and face: Calvarium and visualized facial bones appear intact, without suspicious lesions. Sinuses: Visualized sinuses demonstrate scattered areas of mucosal thickening. IMPRESSION: 1. No acute intracranial process. 2. Moderate atrophy and chronic microvascular ischemic changes. CTA - brain/neck: Radiologist's Impression: [address] [address] [address] Scan Report Signed Patient: Nestor Mercedes MR#: [id number] : 1940 Acct:[id number] Age/Sex: 84 / M Date of Service: 12/13/24 Loc: ED Accession Number: [id number] Procedure: CT angio head and neck Ordering Provider: Moiz Recinos D.O. PROCEDURE: CT ANGIO HEAD AND NECK INDICATIONS: Lightheaded, dizzy TECHNIQUE: After the administration of intravenous contrast, 1 mm thick sections acquired from the aortic arch through the [place]. 3-dimensional eybxewz-svplnzfmv-gjjgjdrukb (MIP) and/or volume rendering reformats were acquired of the central intracranial vasculature and neck separately. For radiation dose reduction, the following was used: automated exposure control, adjustment of mA and/or kV according to patient size. COMPARISON: [facility], CT, CT HEAD/BRAIN WO CON, 12/13/2024, 14:22. [facility], CT, CT ANGIO HEAD AND NECK, 09/14/2024, 16:46. FINDINGS: Image quality: Diagnostic. BRAIN: See separately dictated CT brain report of 12/13/2024. HEAD CT ANGIOGRAPHY: Anterior circulation: Intracranial internal carotid arteries are normal in size and flow. The flow within the paired anterior cerebral arteries is normal and symmetric. The flow within the middle cerebral arteries is normal and symmetric. The anterior communicating artery is seen. No aneurysms are seen. Posterior circulation: Visualized portions of the vertebral arteries demonstrate normal caliber, and join to form a normal appearing basilar artery. Flow within the posterior cerebral arteries is normal and symmetric. No aneurysms are seen. NECK CT ANGIOGRAPHY: Carotid system: The great vessels demonstrate a conventional anatomy as they arise from the aortic arch. The origins of the common carotid arteries appear patent. The common carotid arteries demonstrate normal caliber and courses. The bifurcation regions are both widely patent. The internal carotid arteries demonstrate normal calibers and courses. Posterior circulation: The origins of the vertebral arteries both appear widely patent. The more superior extracranial portions of both vertebral arteries also demonstrate normal courses and calibers. They join to form a normal appearing basilar artery. Soft tissues: Visualized neck soft tissues demonstrate no suspicious abnormalities. Emphysematous changes are present within the visualized lung apices. Bones: No suspicious bony lesions. Visualized cervical spine appears normally aligned. Multilevel degenerative change within the cervical spine. IMPRESSION: No significant intracranial arterial abnormality is seen. No significant abnormality is seen within the arteries of the neck. ECG Data Interpretation: EKG interpreted ED physician atrial fibrillation 84 beats per minute QTC 423, normal axis, nonspecific ST changes, no STEMI MDM Narrative Medical decision making narrative: 84-year-old male history of AFib on Coumadin, CHF, hypertension presenting for persistent lightheadedness shortness of breath weakness ongoing persistent for the past several months but worsening over the past few days, is on 2 L nasal cannula at baseline, patient had lab work imaging performed here in the emergency department, EKG nonischemic was AFib rate controlled, patient without leukocytosis. Patient's INR 3.1, creatinine only mildly elevated at 1.38, BNP slightly elevated at 1860, however no pleural effusion at his baseline oxygenation, troponin negative. CT chest scan showing apical consolidation concerning for atypical pneumonia. Remainder of imaging unremarkable. I did offer patient admission to the hospital given persistent symptoms as well as atypical pneumonia however he states he does not want to stay he states that he would rather follow up outpatient states that he is already feeling better after presentation here in the emergency department. I gave him strict return precautions he verbalized understanding of this and agrees to being discharged home with outpatient follow up 1600: Discussed case with Cardiology Dr. Zamora, states patient okay to be follow up in an outpatient setting given patient not requiring any additional supplemental oxygen. Discharge Plan Departure Patient Disposition: Home Clinical Impression: Atypical pneumonia Instructions: DI for Atypical Pneumonia Activity Restrictions/Additional Instructions: Follow up with Cardiology and primary care Please read the discharge instructions sheet carefully and bring all papers to all doctor follow-up visits, as it may contain information that your doctor may want to see. Disease processes change and evolve, if your symptoms worsen or if you develop any new symptoms that are concerning to you please return for evaluation. Your evaluation today does not show any evidence of any life-threatening/serious illnesses requiring admission to the hospital or surgery. Please follow-up with your doctor for re-evaluation in approximately 1 day. Seek immediate medical attention for any worrisome symptoms. *If you do not have a primary care provider please contact the [facility] Resource line at [phone]. They will ask some questions about your medical history and help get you set up with a doctor in the community. Prescriptions: New doxycycline hyclate 100 mg capsule 100 mg PO BID 5 Days Qty: 10 0RF No Action multivitamin [Multiple Vitamins] 1 EACH tablet 1 tab PO DAILY Qty: 0 cholecalciferol (vitamin D3) [Vitamin D3] 2,000 UNIT tablet 2,000 unit PO DAILY Qty: 0 finasteride 5 mg tablet 5 mg PO Q OTHER DAY Qty: 45 3RF warfarin 5 mg tablet See Rx Instructions .ROUTE .COMPLEX Qty: 108 3RF Protocol: Dose Management Condition: Monday (Week One) Dose/Route: 2.5 mg Instruction: 0.5 x 5 mg tablets Condition: Monday Dose/Route: 2.5 mg Instruction: 0.5 x 5 mg tablets Condition: Monday Dose/Route: 5 mg Instruction: 1 x 5 mg tablet Condition: Monday Dose/Route: 2.5 mg Instruction: 0.5 x 5 mg tablets Condition: Dose/Route: 0 mg Instruction: 0 tablets Condition: Monday Dose/Route: 2.5 mg Instruction: 0.5 x 5 mg tablets Condition: Monday Dose/Route: 5 mg Instruction: 1 x 5 mg tablet Condition: Monday (Week Two) Dose/Route: 2.5 mg Instruction: 0.5 x 5 mg tablets Condition: Monday Dose/Route: 2.5 mg Instruction: 0.5 x 5 mg tablets Condition: Monday Dose/Route: 5 mg Instruction: 1 x 5 mg tablet Condition: Monday Dose/Route: 2.5 mg Instruction: 0.5 x 5 mg tablets Condition: Dose/Route: 2.5 mg Instruction: 0.5 x 5 mg tablets Condition: Monday Dose/Route: 2.5 mg Instruction: 0.5 x 5 mg tablets Condition: Monday Dose/Route: 5 mg Instruction: 1 x 5 mg tablet Protocol Text: Adjustment Start Date: 11/28/24 INR Value: 2.2 INR Date: 11/28/24 Recheck Date: 12/26/24 Dose Instruction: Take 1/2 tablet daily except on and Mon take 1 or as directed by doctor ; Rx Instructions: Take 5mg Monday and Monday and 2.5mg all other days, or as directed. tamsulosin 0.4 mg capsule 0.4 mg PO BID Qty: 180 3RF Rx Instructions: 30 minutes following the same meal each day melatonin 10 mg tablet 10 mg PO BEDTIME PRN metoprolol succinate 25 mg tablet extended release 24 hr 50 mg PO BEDTIME spironolactone 25 mg tablet 12.5 mg PO DAILY Qty: 90 0RF empagliflozin 10 mg tablet 10 mg PO DAILY Qty: 90 0RF Iron High Potency 27 mg tablet 27 mg PO DAILY Patient Comments: Iron High Potency 240mg (27mg iron) Ocuvite 30unit 5mg 150mg 1 cap PO DAILY metoprolol succinate 50 mg tablet extended release 24 hr 50 mg PO DAILY albuterol sulfate 90 mcg/actuation HFA aerosol inhaler 2 puff inhalation Q6H PRN (Reason: shortness of breath or wheezing) Qty: 8.5 6RF atorvastatin 10 mg tablet 10 mg PO DAILY Referrals: Alejandro Pinto DO [Primary Care Provider] - Stand Alone Forms: Patient Portal/API/Survey
--- NOTE | 2024-12-13 14:12 | DI.CT.S_ITS ---
PROCEDURE: CT HEAD/BRAIN WO CON INDICATIONS: Lightheaded, dizzy TECHNIQUE: Noncontrast 4.5 mm thick angled axial sections acquired from the foramen magnum to the vertex, with coronal and sagittal reformats. For radiation dose reduction, the following was used: automated exposure control, adjustment of mA and/or kV according to patient size. COMPARISON: [facility], CT, CT HEAD/BRAIN WO CON, 05/20/2024, 0:11. FINDINGS: Image quality: Diagnostic. CSF spaces: Basal cisterns are patent. No extra-axial fluid collections. The ventricles are symmetric in size and shape. Brain: No intracranial bleeds or masses. There is cerebral volume loss for age, with resultant ventricular and sulcal prominence. There are periventricular and deep white matter chronic small vessel ischemic changes. There is intracranial internal carotid artery atherosclerosis. Skull and face: Calvarium and visualized facial bones appear intact, without suspicious lesions. Sinuses: Visualized sinuses demonstrate scattered areas of mucosal thickening. IMPRESSION: 1. No acute intracranial process. 2. Moderate atrophy and chronic microvascular ischemic changes. Dictated by: Linda Hester M.D. on 12/13/2024 at 15:12 Approved by: Linda Hester M.D. on 12/13/2024 at 15:12
--- NOTE | 2024-12-13 14:12 | DI.CT.S_ITS ---
PROCEDURE: CT ANGIO HEAD AND NECK INDICATIONS: Lightheaded, dizzy TECHNIQUE: After the administration of intravenous contrast, 1 mm thick sections acquired from the aortic arch through the [place] of [place]. 3-dimensional iaellrz-mratydlbs-aclfyesnfp (MIP) and/or volume rendering reformats were acquired of the central intracranial vasculature and neck separately. For radiation dose reduction, the following was used: automated exposure control, adjustment of mA and/or kV according to patient size. COMPARISON: [facility], CT, CT HEAD/BRAIN WO CON, 12/13/2024, 14:22. [facility], CT, CT ANGIO HEAD AND NECK, 09/14/2024, 16:46. FINDINGS: Image quality: Diagnostic. BRAIN: See separately dictated CT brain report of 12/13/2024. HEAD CT ANGIOGRAPHY: Anterior circulation: Intracranial internal carotid arteries are normal in size and flow. The flow within the paired anterior cerebral arteries is normal and symmetric. The flow within the middle cerebral arteries is normal and symmetric. The anterior communicating artery is seen. No aneurysms are seen. Posterior circulation: Visualized portions of the vertebral arteries demonstrate normal caliber, and join to form a normal appearing basilar artery. Flow within the posterior cerebral arteries is normal and symmetric. No aneurysms are seen. NECK CT ANGIOGRAPHY: Carotid system: The great vessels demonstrate a conventional anatomy as they arise from the aortic arch. The origins of the common carotid arteries appear patent. The common carotid arteries demonstrate normal caliber and courses. The bifurcation regions are both widely patent. The internal carotid arteries demonstrate normal calibers and courses. Posterior circulation: The origins of the vertebral arteries both appear widely patent. The more superior extracranial portions of both vertebral arteries also demonstrate normal courses and calibers. They join to form a normal appearing basilar artery. Soft tissues: Visualized neck soft tissues demonstrate no suspicious abnormalities. Emphysematous changes are present within the visualized lung apices. Bones: No suspicious bony lesions. Visualized cervical spine appears normally aligned. Multilevel degenerative change within the cervical spine. IMPRESSION: No significant intracranial arterial abnormality is seen. No significant abnormality is seen within the arteries of the neck. Any quantitative measurements of stenosis were performed using NASCET criteria. Dictated by: Linda Hester M.D. on 12/13/2024 at 15:08 Approved by: Linda Hester M.D. on 12/13/2024 at 15:10
--- NOTE | 2024-12-13 14:12 | DI.CT.S_ITS ---
PROCEDURE: CT ANGIO CHEST PE PROTOCOL INDICATIONS: sob TECHNIQUE: After the administration of intravenous contrast, 2 mm thick sections acquired from the pulmonary apices to the posterior costophrenic angles. 3-dimensional maximum intensity projection (MIP) coronal and sagittal reformats were then acquired through the thorax. For radiation dose reduction, the following was used: automated exposure control, adjustment of mA and/or kV according to patient size. COMPARISON: [facility], CT, CT CHEST HIGH RESOLUTION, 06/12/2024, 11:45. CT, CT CHEST WO CON, 12/13/2023, 13:05. [facility], CR, XR CHEST 1V, 12/13/2024, 14:28. FINDINGS: Image quality: Diagnostic. Pulmonary arteries: Pulmonary arteries are normal in size, and demonstrate no intraluminal filling defects to suggest central pulmonary embolism. Lower Neck: No enlarged lymph nodes. Thyroid: No thyroid nodules which require sonographic follow up, per consensus guidelines. Axillae: No enlarged lymph nodes. Chest Wall: Unremarkable. Bones: Unremarkable. Lungs and Pleura: Bilateral dependent changes are present at the bases. Changes of chronic interstitial pulmonary to cheese including peripheral reticular opacities are present. Small nodular opacities are present in the left upper lobe. Calcified pleural plaques suggestive of prior asbestosis exposure. Heart: Heart size is enlarged. No pericardial effusion. Thoracic Vessels: Ascending thoracic aorta measures 4.8 cm relatively unchanged. Mediastinum and [place]: Borderline mediastinal enlarged lymph nodes. Esophagus: No wall thickening. No hiatal hernia. Upper Abdomen: Visualized upper abdomen solid organs and bowel loops appear normal. IMPRESSION: No pulmonary embolus. Dependent changes are present the bases. Small nodular clusters in the right upper lobe possibly related to atypical infection or inflammation such as mycobacterial or fungal. Dictated by: Linda Hester M.D. on 12/13/2024 at 14:57 Approved by: Linda Hester M.D. on 12/13/2024 at 15:08
[2024-12-13 14:14] LABS: INR 3.1 (0.9-1.3); Prothrombin Time 34.3 SECONDS (9.4-12.5)
[2024-12-13 14:18] LABS: Add Manual Diff / Slide Review NO; Basophils Absolute Auto 0 /uL (0-100); Basophils Percent Auto 0.5 % (0-2); Eosinophils Absolute Auto 200 /uL (0-450); Eosinophils Percent Auto 2.1 % (2-4); Hematocrit 43.8 % (41-53); Hemoglobin 14.6 g/dL (13.5-17.5); Lymphocytes Absolute Auto 1000 /uL (1100-4500); Mean Corpuscular HGB Conc 33.4 % (30-36); Mean Corpuscular Volume 92.9 fL (80-100); Monocytes Absolute Auto 700 /uL (0-900); Monocytes Percent Auto 8.9 % (3-14); Neutrophils Absolute Auto 5500 /uL (1500-7000); Neutrophils Percent Auto 74.5 % (50-75); Platelet Count 275 X10^3/uL (150-400); Red Blood Cell Count 4.72 X10^6/uL (4.5-5.9); Red Cell Distribution Width 14.8 % (11.6-14.8); White Blood Cell Count 7.4 X10^3/uL (4.5-11.0)
[2024-12-13 14:23] LABS: Alanine Aminotransferase 43 IU/L (<50); Albumin 3.9 g/dL (3.5-5.0); Albumin Globulin Ratio 1.3 (1.0-2.8); Alkaline Phosphatase 80 U/L (38-126); Aspartate Aminotransferase 50 IU/L (17-59); BUN Creatinine Ratio 15.9 (6-22); Blood Urea Nitrogen 22 mg/dL (9-20); Calcium 8.7 mg/dL (8.4-10.2); Carbon Dioxide 26 mmol/L (22-32); Chloride 105 mmol/L (98-107); Estimated Glomerular Filt Rate 50 mL/min (>60); Globulin 2.9 g/dL (1.7-4.1); Glucose 91 mg/dL (80-110); HEMOLYSIS < 15 (0-50); Lactate (Lactic Acid) 0.8 mmol/L (0.7-2.1); Potassium 4.5 mmol/L (3.4-5.1); Sodium 137 mmol/L (137-145); Total Protein 6.8 g/dL (6.3-8.2)
[2024-12-13 14:34] LABS: NT-proBNP (BNP-Adult 18+) 1860 pg/mL (<450); Troponin I < 0.012 ng/mL (0.01-0.034)
[2024-12-13] MEDS: AZITHROMYCIN 250 MG TABLET 500 MG PO (17:28)
== END 2024-12-13 17:38 | disposition home or self-care (01) ==
PROVIDERS: Emergency Provider Student in an Organized Health Care Education/Training Program; Family Provider Family Medicine; PCP Family Medicine
DX: J18.9 Pneumonia, unspecified organism (principal); I48.91 Unspecified atrial fibrillation; I11.0 Hypertensive heart disease with heart failure; I50.9 Heart failure, unspecified; R42 Dizziness and giddiness; Z79.01 Long term (current) use of anticoagulants; Z87.891 Personal history of nicotine dependence
CPT/HCPCS: 36415; 70450; 70496; 70498; 71045; 71275; 80053; 83605; 83880; 84484; 85025; 85610; 93005; 99285; Q9967

== ENCOUNTER → 2025-01-06 13:14 | Outpatient (CLI) | payer MEDICARE, OTHER, SELFPAY ==
[2023-03-15 10:23] VITALS: BMI 23.5
== END ==
LOC: RESP 13:15
PROVIDERS: Family Provider Family Medicine; PCP Family Medicine; Referring Provider Internal Medicine Critical Care Medicine; Visit Provider Internal Medicine Critical Care Medicine
DX: J61 Pneumoconiosis due to asbestos and other mineral fibers (principal); Z87.891 Personal history of nicotine dependence; R94.2 Abnormal results of pulmonary function studies
CPT/HCPCS: 94060; 94726; 94729

== ENCOUNTER → 2025-01-31 08:16 | Outpatient (CLI) | payer MEDICARE, OTHER, SELFPAY ==
[2023-03-15 10:23] VITALS: BMI 23.5
[2025-01-31 10:09] LABS: Hematocrit 46.8 % (41-53); Hemoglobin 15.6 g/dL (13.5-17.5); Mean Corpuscular HGB Conc 33.3 % (30-36); Mean Corpuscular Hemoglobin 31.2 PG (26-34); Mean Corpuscular Volume 93.7 fL (80-100); Platelet Count 288 X10^3/uL (150-400); Red Blood Cell Count 4.99 X10^6/uL (4.5-5.9); Red Cell Distribution Width 14.8 % (11.6-14.8)
[2025-01-31 10:42] LABS: BUN Creatinine Ratio 21.6 (6-22); Blood Urea Nitrogen 29 mg/dL (9-20); Carbon Dioxide 27 mmol/L (22-32); Chloride 104 mmol/L (98-107); Estimated Glomerular Filt Rate 52 mL/min (>60); Glucose 94 mg/dL (80-110); HEMOLYSIS < 15 (0-50); Potassium 4.2 mmol/L (3.4-5.1); Sodium 139 mmol/L (137-145)
[2025-01-31 10:46] LABS: NT-proBNP (BNP-Adult 18+) 1310 pg/mL (<450)
== END ==
LOC: LAB 08:18
PROVIDERS: Family Provider Family Medicine; PCP Family Medicine; Referring Provider Internal Medicine Cardiovascular Disease; Visit Provider Internal Medicine Cardiovascular Disease
DX: I11.0 Hypertensive heart disease with heart failure (principal); I50.32 Chronic diastolic (congestive) heart failure
CPT/HCPCS: 36415; 80048; 83880; 85027

== ENCOUNTER → 2025-03-01 11:21 | Outpatient (CLI) | payer MEDICARE, OTHER, SELFPAY ==
[2023-03-15 10:23] VITALS: BMI 23.5
--- NOTE | 2025-03-01 11:22 | DI.CT.S_ITS ---
PROCEDURE: CT CHEST WO CON INDICATIONS: hypoxia TECHNIQUE: Noncontrast 5 mm thick sections acquired from the pulmonary apices to the posterior costophrenic angles. 1 mm lung window, 5 mm thick coronal and sagittal and 7 mm axial MIP reformats were then acquired. For radiation dose reduction, the following was used: automated exposure control, adjustment of mA and/or kV according to patient size. COMPARISON: [facility], CT, CT CHEST WO [facility], 12/13/2023, 13:05. FINDINGS: Image quality: Diagnostic. Lower Neck: No enlarged lymph nodes. Thyroid: No thyroid nodules which require sonographic follow up, per consensus guidelines. Axillae: No enlarged lymph nodes. Chest Wall: Trace gynecomastia. Bones: No suspicious osseous lesion. Mild scoliosis. Lungs and Pleura: Pleural thickening with scattered areas of calcification, not significantly changed. No significant pleural effusion. No pneumothorax. There are a few calcified granulomas and areas of distal mucus airway plugging. The central airways are clear. Peripheral reticular thickening most pronounced at the lung bases, similar pattern. Heart: Heart size is normal. Three-vessel artery coronary artery calcifications. No pericardial effusion. Thoracic Vessels: The aorta and pulmonary arteries demonstrate normal size. Mediastinum and [place]: No enlarged lymph nodes. Esophagus: No wall thickening. No hiatal hernia. Upper Abdomen: Visualized upper abdomen solid organs and bowel loops appear normal. IMPRESSION: 1. Pleural thickening and calcified pleural plaques is similar. Findings could be due to prior asbestos exposure. 2. Lower lobe predominant reticular thickening is similar. 3. No mass identified. No consolidation. No significant pleural effusion. Dictated by: Lev Heart M.D. on 03/02/2025 at 14:21 Approved by: Lev Heart M.D. on 03/02/2025 at 14:36
== END ==
PROVIDERS: Family Provider Family Medicine; PCP Family Medicine; Referring Provider Family Medicine; Visit Provider Family Medicine
DX: R09.02 Hypoxemia (principal); Z77.090 Contact with and (suspected) exposure to asbestos; I25.10 Atherosclerotic heart disease of native coronary artery without angina pectoris
CPT/HCPCS: 71250

== ENCOUNTER 2025-04-08 11:07 | Emergency (ER) | payer MEDICARE, OTHER, SELFPAY ==
[2025-03-05 11:11] VITALS: BMI 23.5
[2025-04-08] VITALS (7 sets, daily range): BP systolic 116–175; BP diastolic 69–81; PULSE 71–83; RESP 21–24; TEMP 36.6; O2SAT 97–100; BMI 23.1
--- NOTE | 2025-04-08 11:21 | ED.GENADULT ---
HPI - General Adult General Chief complaint: Dizziness Stated complaint: light headed/walking and dizzy spell Time Seen by Provider: 04/08/25 11:14 History of Present Illness HPI narrative: 84-year-old gentleman with asbestosis currently on 2 L of oxygen at home as needed, COPD, chronic atrial fibrillation anticoagulated on warfarin, aortic stenosis, congestive heart failure,diabetes, hyperlipidemia who presents today complaining of dizziness that seems to be significantly worse today this is not a chronic problem for him. He states that his dyspnea maybe slightly worse, his chronic cough is not significantly changed. He does not complain of any localizing neurologic symptoms, no recent fevers or chills, no chest pain or palpitations, not complaining of orthopnea or lower extremity edema. Related Data Home Medications Medication Instructions Recorded Confirmed multivitamin (Multiple Vitamins 1 tab PO DAILY ##0 03/06/13 03/19/25 tablet) cholecalciferol (vitamin D3) 50 2,000 unit PO DAILY #0 tabs 08/03/16 03/19/25 mcg (2,000 unit) tablet (Vitamin D3) Iron High Potency 27 mg PO DAILY 04/09/19 03/19/25 Ocuvite 30unit 5mg 150mg 1 cap PO DAILY 04/09/19 03/19/25 melatonin 10 mg tablet 10 mg PO BEDTIME PRN 01/25/23 03/19/25 atorvastatin 10 mg tablet 10 mg PO DAILY 10/28/24 03/19/25 spironolactone 25 mg tablet 25 mg PO DAILY 12/18/24 03/19/25 furosemide 20 mg tablet 20 mg PO QAM 02/20/25 03/19/25 omega 1-zyp-ije-fish oil 1,200 mg cap PO DAILY PRN 02/20/25 03/19/25 (144 mg-216 mg) capsule (Fish Oil) Previous Rx's Medication Instructions Recorded albuterol sulfate 90 mcg/actuation 2 puff inhalation Q6H PRN 05/31/24 aerosol inhaler shortness of breath or wheezing #8.5 grams empagliflozin 10 mg tablet 10 mg PO DAILY #90 tabs 11/14/24 finasteride 5 mg tablet 5 mg PO Q OTHER DAY #45 tabs 01/16/25 metoprolol succinate 25 mg 25 mg PO .am #90 tabs 02/20/25 tablet,extended release 24 hr metoprolol succinate 50 mg 50 mg PO .HS #90 tabs 02/20/25 tablet,extended release 24 hr tamsulosin 0.4 mg capsule 0.4 mg PO BID #180 caps 03/12/25 warfarin 5 mg tablet See Rx Instructions .Route 04/03/25 .COMPLEX #108 tabs azithromycin 500 mg tablet 500 mg PO DAILY 10 days #10 tabs 04/08/25 Allergies Allergy/AdvReac Type Severity Reaction Status Date / Time No Known Drug Allergies Allergy Verified 03/19/25 15:50 Review of Systems Review of Systems Narrative: Pertinent positive and negative findings as per HPI Patient History Medical History (Updated 04/08/25 @ 12:47 by Julita Hearn MD) Breast lump Atypical pneumonia Hypoxia Somatic dysfunction of lower extremity Segmental and somatic dysfunction of abdomen and other regions Strain of right psoas muscle Anxiety about health Foot joint stiffness, bilateral Orthostatic hypotension Blurry vision, bilateral Insomnia COVID-19 virus infection Elevated random blood glucose level Aortic stenosis, severe Anticoagulated on warfarin Physician orders for life-sustaining treatment (POLST) form indicates patient wish for cq-tuy-ntyfogusnyr status Benign prostatic hyperplasia with urinary obstruction Fatigue Erectile dysfunction History of elevated PSA Balance problem Left arm weakness Vitamin D deficiency Pelvic somatic dysfunction Segmental and somatic dysfunction of sacral region Segmental and somatic dysfunction of lumbar region Chronic bilateral low back pain without sciatica Somatic dysfunction of both lower extremities Foot stiffness Segmental and somatic dysfunction of thoracic region Segmental and somatic dysfunction of rib cage Cervical somatic dysfunction Cranial somatic dysfunction Diplopia Chronic atrial fibrillation (01/02/18) Essential hypertension (02/16/16) 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) Incomplete emptying of bladder (02/16/16) Atrial fibrillation with rapid ventricular response Surgical History Hx of cholecystectomy Status post cholecystectomy Family History Mother CVA (cerebral vascular accident) Father Diabetes mellitus Brother Renal failure Social History marital status: number of children: 1 household members: none occupational status: previously employed Previous occupational history: [employer] Smoking Status: Former smoker alcohol intake: former caffeine: Yes alcohol intake frequency: holidays/special occasions only Exam Narrative Exam Narrative: General: older appearing, home oxygen in place, able to speak in full sentences no acute distress HEENT: Moist mucous membranes, normal sclera with reactive pupils, Neck: No JVD, supple Respiratory: Lungs are clear to auscultation, no wheezing no rales no rhonchi. Full and symmetrical air movement Cardiac: Regular rate and rhythm with loud holosystolic ejection murmur Abdomen: Soft, nontender, no rebound or guarding, no flank pain Skin: Warm and dry, no rashes Neurologic: Grossly neurologically intact with no obvious asymmetries or abnormalities Extremities: No trauma, well perfused, no edema Psych: Cooperative, appropriate insight and affect Initial Vital Signs Initial Vital Signs: Vital Signs Temperature 97.8 F 04/08/25 11:10 Pulse Rate 75 04/08/25 11:10 Respiratory Rate 24 04/08/25 11:10 Blood Pressure 175/79 H 04/08/25 11:10 Pulse Oximetry 98 04/08/25 11:10 Oxygen Delivery Method Nasal Cannula 04/08/25 11:10 Oxygen Flow Rate 2 04/08/25 11:10 Course Orders Ordered: ED Orders 04/08/25 11:20 XR chest 1V Stat 04/08/25 11:21 EKG-12 Lead Stat 04/08/25 11:23 Complete Blood Count AUTO DIFF Stat Comprehensive Metabolic Panel Stat D Dimer Stat Lactate (Lactic Acid) Stat Lipase Stat Magnesium Stat NT-proBNP (BNP-Adult 18+) Stat Procalcitonin Stat Troponin I Stat 04/08/25 12:24 Urinalysis and Microscopic Stat Vital Signs Vital signs: Vital Signs - 8 hr 04/08/25 11:10 04/08/25 11:19 04/08/25 11:19 Temperature 97.8 F Pulse Rate 75 71 Respiratory Rate 24 Blood Pressure 175/79 H 175/79 H Pulse Oximetry 98 99 Oxygen Delivery Method Nasal Cannula Oxygen Flow Rate 2 04/08/25 11:30 04/08/25 11:30 Temperature Pulse Rate 83 Respiratory Rate 21 Blood Pressure 138/81 Pulse Oximetry 100 Oxygen Delivery Method Nasal Cannula Oxygen Flow Rate 2 Medical Decision Making Lab Data 04/08/25 11:23 04/08/25 11:23 Labs: Lab Results 04/08/25 Range/Units 11:23 WBC 7.8 (4.5-11.0) X10^3/uL RBC 4.96 (4.5-5.9) X10^6/uL Hgb 15.5 (13.5-17.5) g/dL Hct 46.4 (41-53) % MCV 93.7 (80-100) fL MCH 31.2 (26-34) PG MCHC 33.3 (30-36) % RDW 14.1 (11.6-14.8) % Plt Count 264 (150-400) X10^3/uL Neut % (Auto) 72.1 (50-75) % Lymph % (Auto) 13.8 L (25-40) % [place] % (Auto) 10.7 (3-14) % Eos % (Auto) 2.9 (2-4) % Baso % (Auto) 0.5 (0-2) % Neut # (Auto) 5600 (8277-0058) /uL Lymph # (Auto) 1100 (8010-1270) /uL [place] # (Auto) 800 (0-900) /uL Eos # (Auto) 200 (0-450) /uL Baso # (Auto) 0 (0-100) /uL D-Dimer 385 (<500) ng/ml Sodium 137 (137-145) mmol/L Potassium 4.4 (3.4-5.1) mmol/L Chloride 102 (98-107) mmol/L Carbon Dioxide 28 (22-32) mmol/L BUN 27 H (9-20) mg/dL Creatinine 1.32 H (0.66-1.25) mg/dL Estimated GFR 53 L (>60) mL/min BUN/Creatinine Ratio 20.5 (6-22) Glucose 94 (70-99) mg/dL Lactate 0.9 (0.7-2.1) mmol/L Calcium 8.9 (8.4-10.2) mg/dL Magnesium 2.4 H (1.6-2.3) mg/dL Total Bilirubin 2.0 H (0.2-1.3) mg/dL AST 31 (17-59) IU/L ALT 29 (<50) IU/L Alkaline Phosphatase 75 (38-126) U/L Troponin I < 0.012 (0.01-0.034) ng/mL NT-Pro-B Natriuret Pep 1340 H (<450) pg/mL Total Protein 7.3 (6.3-8.2) g/dL Albumin 4.2 (3.5-5.0) g/dL Globulin 3.1 (1.7-4.1) g/dL Albumin/Globulin Ratio 1.4 (1.0-2.8) Lipase 243 (23-300) U/L Procalcitonin 0.063 (<0.5) ng/mL Imaging Data Chest x-ray: Radiologist's Impression: PROCEDURE: XR CHEST 1V INDICATIONS: dizzy, cough TECHNIQUE: One view of the chest was acquired. COMPARISON: [facility], CR, XR CHEST 1V, 12/13/2024, 14:28. FINDINGS: Surgical changes and devices: None. Lungs and pleura: Patchy ill-defined opacities of the right lower lung zone and left lung base. Possible small bilateral pleural effusions versus pleural thickening. No new dense consolidation. No pneumothorax. Mediastinum: Mediastinal contours appear normal. Heart size is normal. Bones and chest wall: No suspicious bony lesions. Overlying soft tissues appear unremarkable. IMPRESSION: Mild patchy ill-defined opacities of the bilateral lower lung zones with possible small bilateral pleural effusions versus pleural thickening. No dense consolidation seen. Findings may represent multifocal pneumonia given reported history of cough. Recommend follow up chest radiograph 4-6 weeks after treatment to document resolution of findings and/or return to baseline examination. Dictated by: Dony Mccullough M.D. on 04/08/2025 at 11:36 MDM Narrative Medical decision making narrative: CC:Dizziness feeling generally unwell Complicating co-morbidities: chronic atrial fibrillation, anticoagulated, COPD on home oxygen, hyperlipidemia Data collected from: patient Medical records reviewed: ER note from December 12, 2024 is reviewed. Chief complaint is almost identical to today's complaints. Workup that time was negative for stroke, or acute coronary syndrome he was felt to have an atypical pneumonia. imaging at that time included a CT scan of the head, CT angiogram of the head and neck, CT scan of the chest and he was discharged home with doxycycline most recent primary care note March 19 is reviewed. Seen for breast lump Differential considered: acute coronary syndrome, acute anemia, dehydration, other electrolyte abnormality, worsening COPD, bacterial or viral pneumonia, Exam documented above, pertinent findings include: 4/6 systolic murmur, chest has minimal scattered wheeze and minimal rhonchi,no lower extremity edema, remainder of exam is benign Lab Test results independently reviewed as above. Pertinent findings: CBC is unremarkable, showing no leukocytosis nor acute anemia chemistries appear close to his baseline with no increased to creatinine BNP is elevated but again appears close to his baseline procalcitonin is not elevated suggesting absence of chronic infection Independently reviewed EKG: chronic atrial fibrillation no acute ischemic changes Imaging studies independently reviewed: chest x-ray shows patchy ill-defined opacities in the bilateral lower lungs with possible explanation be a multifocal pneumonia, congestive heart failure Treatments: oral azithromycin Discussion: findings reviewed with the patient. Possibility of pneumonia in the setting of his asbestos disease and COPD is entertained. There was no signs of sepsis, severe respiratory failure indication that hospitalization is required at this time. I do not think that his congestive heart failure is significantly contributing beyond the baseline disease. I am not going to recommend increasing any of his diuresis. Given the fact that he does have COPD, this does appear to be an atypical pneumonia I am going to place him on azithromycin, slightly extended course because of the COPD. Discussed with him the fact that antibiotics frequently interfere with warfarin dosing. His next warfarin dose check is in 48 hours which will be appropriate. He states that he is feeling significantly better, his dizziness has improved. He has a number of questions regarding when to be worried about his chronic symptoms and when to come to the emergency department to make sure that he is appropriately using resources. We talked about acute exacerbations as reasons to come to the ER but continued chronic problems that are minimally worse probably should be addressed by his primary care physician. Patient is safe for discharge Discharge Plan Departure Patient Disposition: Home Clinical Impression: Atypical pneumonia, Dizziness COPD (chronic obstructive pulmonary disease) Qualifiers: COPD type: unspecified COPD Qualified Code(s): J44.9 - Chronic obstructive pulmonary disease, unspecified Chronic CHF (congestive heart failure) Qualifiers: Heart failure type: unspecified Qualified Code(s): I50.9 - Heart failure, unspecified Instructions: DI for Atypical Pneumonia Activity Restrictions/Additional Instructions: thank you for coming in today I think you may be developing pneumonia. Fortunately your oxygen levels are at your baseline while you have your 2 [address] of oxygen in [address]. Your heart rate and blood pressure appropriate and we do not need to keep you in the hospital. I am not seeing signs of heart attack, worsening heart failure or stroke. For your developing pneumonia I am going to suggest 10 days of azithromycin. Azithromycin isn't antibiotic and can change your warfarin/ Coumadin level. Please make sure you keep your appointment to have it checked on and make sure you told the nurse that you are recently started on antibiotics prescriptions were electronically transmitted to [facility] please schedule follow up appointment with your primary care doctor in about a week to make sure that you are lungs are improving and to again discuss your chronic dizziness and review medications to see if there is more that might be done to help with this If you find that you are getting worse or develop any new symptoms, please feel free to return to the emergency department for further evaluation. Prescriptions: New azithromycin 500 mg tablet 500 mg PO DAILY 10 Days Qty: 10 0RF No Action multivitamin [Multiple Vitamins] 1 EACH tablet 1 tab PO DAILY Qty: 0 cholecalciferol (vitamin D3) [Vitamin D3] 2,000 UNIT tablet 2,000 unit PO DAILY Qty: 0 finasteride 5 mg tablet 5 mg PO Q OTHER DAY Qty: 45 3RF tamsulosin 0.4 mg capsule 0.4 mg PO BID Qty: 180 3RF Rx Instructions: 30 minutes following the same meal each day warfarin 5 mg tablet See Rx Instructions .ROUTE .COMPLEX Qty: 108 3RF Protocol: Dose Management Condition: Monday Dose/Route: 2.5 mg Instruction: 0.5 x 5 mg tablets Condition: Monday Dose/Route: 2.5 mg Instruction: 0.5 x 5 mg tablets Condition: Monday Dose/Route: 5 mg Instruction: 1 x 5 mg tablet Condition: Monday Dose/Route: 2.5 mg Instruction: 0.5 x 5 mg tablets Condition: Dose/Route: 2.5 mg Instruction: 0.5 x 5 mg tablets Condition: Monday Dose/Route: 2.5 mg Instruction: 0.5 x 5 mg tablets Condition: Monday Dose/Route: 5 mg Instruction: 1 x 5 mg tablet Protocol Text: Adjustment Start Date: 04/03/25 INR Value: 1.9 INR Date: 04/03/25 Recheck Date: 04/17/25 Dose Instruction: Take 1/2 tablet daily except on and Sat take 1 or as directed by doctor ; Rx Instructions: Take 1 tablet (5mg total) on Monday and Monday. Take 1/2 tablet (2.5 mg total) all other days; or as directed. melatonin 10 mg tablet 10 mg PO BEDTIME PRN empagliflozin 10 mg tablet 10 mg PO DAILY Qty: 90 0RF spironolactone 25 mg tablet 25 mg PO DAILY omega 4-qzm-pmu-fish oil [Fish Oil] 1,200 (144-216) mg capsule PO DAILY PRN metoprolol succinate 50 mg tablet extended release 24 hr 50 mg PO .HS Qty: 90 3RF metoprolol succinate 25 mg tablet extended release 24 hr 25 mg PO .am Qty: 90 3RF furosemide 20 mg tablet 20 mg PO QAM Iron High Potency 27 mg tablet 27 mg PO DAILY Patient Comments: Iron High Potency 240mg (27mg iron) Ocuvite 30unit 5mg 150mg 1 cap PO DAILY albuterol sulfate 90 mcg/actuation HFA aerosol inhaler 2 puff inhalation Q6H PRN (Reason: shortness of breath or wheezing) Qty: 8.5 6RF atorvastatin 10 mg tablet 10 mg PO DAILY Referrals: Alejandro Pinto DO [Primary Care Provider] - Stand Alone Forms: Patient Portal/API/Survey
--- NOTE | 2025-04-08 11:29 | EKG_ITS ---
[address] [id number] [address] [address] Test Date: 2025-04-08 Pat Name: Nestor Mercedes Department: [facility] Room: Gender: Male Account Services Associate: CARLOS : 1940 Requested By: Order Number: [id number] Reading MD: Brennan Ceron Measurements Intervals [place] Rate: 79 P: NM: QRS: 0 QRSD: 86 T: -2 QT: 364 QTc: 417 Interpretive Statements Atrial fibrillation Electronically Signed On 04-08-2025 14:01:57 PDT by Brennan Ceron
[2025-04-08 11:32] LABS: Add Manual Diff / Slide Review NO; Basophils Absolute Auto 0 /uL (0-100); Basophils Percent Auto 0.5 % (0-2); Eosinophils Absolute Auto 200 /uL (0-450); Eosinophils Percent Auto 2.9 % (2-4); Hematocrit 46.4 % (41-53); Hemoglobin 15.5 g/dL (13.5-17.5); Lymphocytes Absolute Auto 1100 /uL (1100-4500); Lymphocytes Percent Auto 13.8 % (25-40); Mean Corpuscular HGB Conc 33.3 % (30-36); Mean Corpuscular Hemoglobin 31.2 PG (26-34); Mean Corpuscular Volume 93.7 fL (80-100); Monocytes Absolute Auto 800 /uL (0-900); Monocytes Percent Auto 10.7 % (3-14); Neutrophils Absolute Auto 5600 /uL (1500-7000); Neutrophils Percent Auto 72.1 % (50-75); Platelet Count 264 X10^3/uL (150-400); Red Blood Cell Count 4.96 X10^6/uL (4.5-5.9); Red Cell Distribution Width 14.1 % (11.6-14.8); White Blood Cell Count 7.8 X10^3/uL (4.5-11.0)
[2025-04-08 11:43] LABS: D Dimer 385 ng/ml (<500)
[2025-04-08 11:44] LABS: Alanine Aminotransferase 29 IU/L (<50); Albumin 4.2 g/dL (3.5-5.0); Albumin Globulin Ratio 1.4 (1.0-2.8); Alkaline Phosphatase 75 U/L (38-126); Aspartate Aminotransferase 31 IU/L (17-59); BUN Creatinine Ratio 20.5 (6-22); Blood Urea Nitrogen 27 mg/dL (9-20); Calcium 8.9 mg/dL (8.4-10.2); Carbon Dioxide 28 mmol/L (22-32); Chloride 102 mmol/L (98-107); Estimated Glomerular Filt Rate 53 mL/min (>60); Globulin 3.1 g/dL (1.7-4.1); Glucose 94 mg/dL (70-99); HEMOLYSIS < 15 (0-50); Lactate (Lactic Acid) 0.9 mmol/L (0.7-2.1); Lipase 243 U/L (23-300); Magnesium 2.4 mg/dL (1.6-2.3); Potassium 4.4 mmol/L (3.4-5.1); Sodium 137 mmol/L (137-145); Total Protein 7.3 g/dL (6.3-8.2)
[2025-04-08 11:56] LABS: NT-proBNP (BNP-Adult 18+) 1340 pg/mL (<450); Troponin I < 0.012 ng/mL (0.01-0.034)
[2025-04-08 12:00] LABS: Procalcitonin 0.063 ng/mL (<0.5)
[2025-04-08 12:38] LABS: Prothrombin Time 22.3 SECONDS (9.4-12.5)
[2025-04-08 12:38] LABS: Appearance Urine UA CLEAR; Bilirubin Urine UA NEGATIVE (NEGATIVE); Color Urine UA YELLOW; Glucose Urine UA 3+ g/dL (Negative); Ketones Urine UA NEGATIVE (NEGATIVE); Leukocyte Esterase Urine UA NEGATIVE (NEGATIVE); Nitrite Urine UA NEGATIVE (Negative); Occult Blood Urine UA NEGATIVE (Negative); Protein Urine UA NEGATIVE (Negative); Specific Gravity Urine UA 1.015 (1.000-1.035); Urobilinogen Urine UA 0.2 E.U./dL (0.2)
[2025-04-08 12:39] LABS: Urine Volume 10mL (spun)
[2025-04-08 12:41] LABS: Bacteria Urine None Seen; Culture Indicated Urine Cult Not Indicated; RBC Urine None Seen (0-5/HPF); Squamous Epithelial Cell Urine None Seen (0-5/HPF); WBC Urine None Seen (0-5/HPF)
[2025-04-08] MEDS: AZITHROMYCIN 250 MG TABLET 500 MG PO (13:03)
== END 2025-04-08 13:25 | disposition home or self-care (01) ==
PROVIDERS: Emergency Provider Emergency Medicine; Family Provider Family Medicine; PCP Family Medicine
DX: J18.9 Pneumonia, unspecified organism (principal); J44.9 Chronic obstructive pulmonary disease, unspecified; I50.9 Heart failure, unspecified; R42 Dizziness and giddiness
CPT/HCPCS: 36415; 71045; 80053; 81001; 83605; 83690; 83735; 83880; 84145; 84484; 85025; 85379; 85610; 93005; 99285

== ENCOUNTER → 2025-04-30 08:38 | Outpatient (CLI) | payer MEDICARE, OTHER, SELFPAY ==
[2025-03-05 11:11] VITALS: BMI 23.5
--- NOTE | 2025-04-30 08:40 | DI.US.S_ITS ---
MM diagnostic mammo BI, US breast LT limited: 04/30/2025 BI-RADS: 2 CLINICAL: 84-year old male for bilateral diagnostic mammogram and left diagnostic breast ultrasound. No personal or first-degree family history of breast cancer. The patient reports a palpable abnormality (6 months) in the left breast. PRIOR EXAMS No prior examinations available. MAMMOGRAPHY TECHNIQUE: 2D and 3D (tomosynthesis) digital mammographic views obtained, with additional images as needed for full coverage. Current study was also evaluated with a Computer Aided Detection (CAD) system. ULTRASOUND TECHNIQUE TARGETED Left Breast Ultrasound: Real-time ultrasound exam was performed focused to area of clinical and/or imaging concern. Real-time hall scale and color doppler imaging of the area of clinical interest was performed with image documentation. DENSITY Right: A. The breasts are almost entirely fatty. Left: C. The breasts are heterogeneously dense, which may obscure small masses. MAMMOGRAPHY FINDINGS Right: No suspicious mass, asymmetry, microcalcification, or other abnormality seen. Left: There is a nodular glandular asymmetry in the subareolar region corresponding to the palpable abnormality. There is an asymmetry consistent with gynecomastia. ULTRASOUND FINDINGS Left: Central, Retroareolar, measuring 1.4 x 1.3 x 1.5 cm: Correlating with palpable lump and also with findings on mammogram there is retroareolar fibroglandular tissue consistent with gynecomastia. IMPRESSION: Right * No evidence of malignancy. Left * Asymmetric gynecomastia is present which accounts for the patient's symptoms of palpable abnormality and/or pain. Causes of gynecomastia can include medications, hormonal and lifestyle factors. The patient should follow up with his primary care physician to discuss etiology and further treatment if necessary. * No evidence of malignancy with benign findings. COMMENTS: Findings and recommendations were conveyed to the patient during today's evaluation. OVERALL ASSESSMENT CATEGORY BI-RADS-2: Benign. ELECTRONICALLY SIGNED: Lucie Dao M.D. on 04/30/2025 at 11:02:45 AM PT Interpreting Station ID: [id number]
== END ==
PROVIDERS: Family Provider Family Medicine; PCP Family Medicine; Referring Provider Family Medicine; Visit Provider Family Medicine
DX: N63.42 Unspecified lump in left breast, subareolar (principal); R92.311 Mammographic fatty tissue density, right breast; R92.332 Mammographic heterogeneous density, left breast
CPT/HCPCS: 76642; 77066; G0279

== ENCOUNTER 2025-05-13 10:44 | Emergency (ER) | payer MEDICARE, OTHER, SELFPAY ==
[2025-03-05 11:11] VITALS: BMI 23.5
[2025-05-13 10:52] VITALS: PULSE 88; O2SAT 97
[2025-05-13 10:53] VITALS: BP 142/81; PULSE 86; O2SAT 95
--- NOTE | 2025-05-13 10:56 | DI.RAD.S_ITS ---
PROCEDURE: XR CHEST 1V INDICATIONS: Possible stroke TECHNIQUE: One view of the chest was acquired. COMPARISON: [facility], CR, XR CHEST 1V, 04/08/2025, 11:15. [facility], CR, XR CHEST 1V, 12/13/2024, 14:28. FINDINGS: Surgical changes and devices: None. Lungs and pleura: Pleural calcifications. Bibasilar peripheral reticulation. Calcified granuloma. No consolidation. Mediastinum: Mediastinal contours appear normal. Heart size is normal. Bones and chest wall: No suspicious bony lesions. Overlying soft tissues appear unremarkable. IMPRESSION: No acute cardiopulmonary abnormality is seen. Basilar predominant peripheral reticulation, probably senescent fibrosis. Dictated by: Greg Leggett M.D. on 05/13/2025 at 11:29 Approved by: Greg Leggett M.D. on 05/13/2025 at 11:30
--- NOTE | 2025-05-13 10:57 | EKG_ITS ---
[address] [address] Test Date: 2025-05-13 Pat Name: Nestor Mercedes Department: Room: Gender: Male Rip Saw Operator: NARESH : 1940 Requested By: Order Number: [id number] Reading MD: Lobo Menjivar MD Measurements Intervals Sneads Rate: 78 P: LA: QRS: -5 QRSD: 82 T: -6 QT: 356 QTc: 405 Interpretive Statements Atrial fibrillation Inferior infarct , age undetermined Electronically Signed On 05-13-2025 11:40:24 PDT by Lobo Menjivar MD
[2025-05-13 11:00] VITALS: BP 147/81; PULSE 80; PULSE 91; RESP 14; RESP 31; TEMP 36.6; O2SAT 96; O2SAT 97; BMI 23.1
[2025-05-13 11:03] LABS: Add Manual Diff / Slide Review NO; Hematocrit 46.3 % (41-53); Hemoglobin 15.3 g/dL (13.5-17.5); Lymphocytes Absolute Auto 1300 /uL (1100-4500); Mean Corpuscular HGB Conc 33.1 % (30-36); Mean Corpuscular Hemoglobin 31.3 PG (26-34); Mean Corpuscular Volume 94.4 fL (80-100); Platelet Count 256 X10^3/uL (150-400)
[2025-05-13 11:11] LABS: INR 1.7 (0.9-1.3); Prothrombin Time 19.2 SECONDS (9.4-12.5)
[2025-05-13 11:14] LABS: PTT Partial Thromboplastin Tim 35 SECONDS (25.1-36.5)
[2025-05-13 11:15] LABS: Alanine Aminotransferase 29 IU/L (<50); Albumin 3.9 g/dL (3.5-5.0); Albumin Globulin Ratio 1.3 (1.0-2.8); Alkaline Phosphatase 73 U/L (38-126); Blood Urea Nitrogen 30 mg/dL (9-20); Calcium 8.7 mg/dL (8.4-10.2); Carbon Dioxide 23 mmol/L (22-32); Chloride 106 mmol/L (98-107); Creatine Kinase 36 U/L (55-170); Estimated Glomerular Filt Rate 56 mL/min (>60); Globulin 2.9 g/dL (1.7-4.1); Glucose 97 mg/dL (70-99); HEMOLYSIS 20 (0-50); Potassium 4.8 mmol/L (3.4-5.1); Sodium 135 mmol/L (137-145); Total Protein 6.8 g/dL (6.3-8.2)
--- NOTE | 2025-05-13 11:24 | DI.CT.S_ITS ---
PROCEDURE: CT HEAD/BRAIN WO CON INDICATIONS: dizzy,blurred vision TECHNIQUE: Noncontrast 4.5 mm thick angled axial sections acquired from the foramen magnum to the vertex, with coronal and sagittal reformats. For radiation dose reduction, the following was used: automated exposure control, adjustment of mA and/or kV according to patient size. COMPARISON: [facility], CT, CT HEAD/BRAIN WO CON, 12/13/2024, 14:22. FINDINGS: Image quality: Diagnostic. CSF spaces: Basal cisterns are patent. No extra-axial fluid collections. The ventricles are symmetric in size and shape. Brain: No intracranial bleeds or mass effect. There is cerebral volume loss, with resultant ventricular and sulcal prominence. There are moderate periventricular and deep white matter chronic small vessel ischemic changes. There is intracranial internal carotid artery atherosclerosis. Skull and face: Calvarium and visualized facial bones appear intact, without suspicious lesions. Sinuses: Chronic subtotal ethmoid opacification with associated bony sclerosis as well as chronic anterior left mastoid opacification. Paranasal sinuses and mastoids are otherwise clear. IMPRESSION: No acute intracranial pathology. Stable moderate small vessel ischemic change. 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 Dictated by: Benjamín Ding M.D. on 05/13/2025 at 11:41 Approved by: Benjamín Ding M.D. on 05/13/2025 at 11:43
--- NOTE | 2025-05-13 11:25 | ED.GENADULT ---
HPI - General Adult General Chief complaint: Dizziness Stated complaint: Lightheaded, tingle in left arm, vision blurry Time Seen by Provider: 05/13/25 10:57 Source: patient, RN notes reviewed and old records reviewed Limitations: no limitations History of Present Illness HPI narrative: 84-year-old male history of atrial fibrillation on warfarin, hypertension, dyslipidemia with a history of dizziness has been seeing vestibular PT in the past presents today. Patient states he feels lightheaded he states it does not feel like the room is spinning he states he typically gets this for the past 2-1/2 years that is usually intermittent exacerbated with positional changes particularly standing or ambulating. He states usually if he was lying or sitting he was asymptomatic. Noted this morning upon awakening he felt lightheaded. He states no syncope, no headaches, no sudden vision changes although he states it is not quite as clear as typical. Patient states no double vision. No issues with speech. No new numbness tingling or weakness. No difficulty with ambulation or movement. Patient states no fevers. No nausea or vomiting. No issues with bowel movements. States he noticed a little bit less urine output he typically feels a Dolan jar nightly states he only filled it about fdc full for height. But he notes he was also had decrease of oral intake of fluids. No cold cough or congestion symptoms. 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 Patient states his warfarin level was noted to be low in his last check they just increased in back up on his dosing. States only prior surgery was cholecystectomy. No known drug allergies. Quit using tobacco and 74, quit using alcohol in 1985, no recreational drugs. Follows with Dr. Pinto is his primary care physician does follow up regularly with Cardiology and also follows with pulmonology. Related Data Home Medications ?Medication ?Instructions ?Recorded ?Confirmed multivitamin (Multiple Vitamins 1 tab PO DAILY ##0 03/06/13 04/16/25 tablet) cholecalciferol (vitamin D3) 50 2,000 unit PO DAILY #0 tabs 08/03/16 04/16/25 mcg (2,000 unit) tablet (Vitamin D3) Iron High Potency 27 mg PO DAILY 04/09/19 04/16/25 Ocuvite 30unit 5mg 150mg 1 cap PO DAILY 04/09/19 04/16/25 melatonin 10 mg tablet 10 mg PO BEDTIME PRN 01/25/23 04/16/25 atorvastatin 10 mg tablet 10 mg PO DAILY 10/28/24 04/16/25 spironolactone 25 mg tablet 25 mg PO DAILY 12/18/24 04/16/25 furosemide 20 mg tablet 20 mg PO QAM 02/20/25 04/16/25 omega 7-yqg-yaf-fish oil 1,200 mg cap PO DAILY PRN 02/20/25 04/16/25 (144 mg-216 mg) capsule (Fish Oil) metoprolol succinate 25 mg 12.5 mg PO .am 04/16/25 tablet,extended release 24 hr Previous Rx's ?Medication ?Instructions ?Recorded albuterol sulfate 90 mcg/actuation 2 puff inhalation Q6H PRN 05/31/24 aerosol inhaler shortness of breath or wheezing #8.5 grams empagliflozin 10 mg tablet 10 mg PO DAILY #90 tabs 11/14/24 finasteride 5 mg tablet 5 mg PO Q OTHER DAY #45 tabs 01/16/25 metoprolol succinate 50 mg 50 mg PO .HS #90 tabs 02/20/25 tablet,extended release 24 hr tamsulosin 0.4 mg capsule 0.4 mg PO BID #180 caps 03/12/25 warfarin 5 mg tablet See Rx Instructions .Route 04/03/25 .COMPLEX #108 tabs Allergies Allergy/AdvReac Type Severity Reaction Status Date / Time No Known Drug Allergies Allergy Verified 05/13/25 11:44 Review of Systems Review of Systems ROS Unobtainable: All systems reviewed & are unremarkable except as noted in HPI and below Patient History Medical History Breast lump Atypical pneumonia Hypoxia Somatic dysfunction of lower extremity Segmental and somatic dysfunction of abdomen and other regions Strain of right psoas muscle Anxiety about health Foot joint stiffness, bilateral Orthostatic hypotension Blurry vision, bilateral Insomnia COVID-19 virus infection Elevated random blood glucose level Aortic stenosis, severe Anticoagulated on warfarin Physician orders for life-sustaining treatment (POLST) form indicates patient wish for [id number] status Benign prostatic hyperplasia with urinary obstruction Fatigue Erectile dysfunction History of elevated PSA Balance problem Left arm weakness Vitamin D deficiency Pelvic somatic dysfunction Segmental and somatic dysfunction of sacral region Segmental and somatic dysfunction of lumbar region Chronic bilateral low back pain without sciatica Somatic dysfunction of both lower extremities Foot stiffness Segmental and somatic dysfunction of thoracic region Segmental and somatic dysfunction of rib cage Cervical somatic dysfunction Cranial somatic dysfunction Diplopia Chronic atrial fibrillation (01/02/18) Essential hypertension (02/16/16) 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) Incomplete emptying of bladder (02/16/16) Atrial fibrillation with rapid ventricular response Surgical History Hx of cholecystectomy Status post cholecystectomy Family History Mother CVA (cerebral vascular accident) Father Diabetes mellitus Brother Renal failure Social History marital status: number of children: 1 household members: none occupational status: previously employed Previous occupational history: [employer] Smoking Status: Unknown if ever smoked alcohol intake: former caffeine: Yes alcohol intake frequency: holidays/special occasions only Exam Narrative Exam Narrative: GEN: well nourished, well appearing male, alert and oriented x 3, patient appears to be in mild distress. HEENT: Atraumatic, pupils are equal round reactive to light, extraocular movements are intact, nares are clear, TMs are clear with no fluid, there is no conjunctival pallor. Throat is clear without any exudates, erythema, tonsillar enlargement or uvular deviation, no facial droop HEART: Regular rate and rhythm without murmur, clicks, rubs. Pulses are equal in upper and lower extremities LUNGS:Lungs clear to auscultation, no wheezes, rales, crackles, chest moves symmetrically ABD:bowel sounds normal, soft, non-tender, no guarding, rebound, rigidity, no masses noted, no hepatosplenomegaly :No CVA tenderness MSCL: Non-tender, no muscle atrophy, muscles strength 5/5 upper and lower extremities, full range of motion, normal gait NEURO:CN 2-12 intact, sensation normal, finger nose finger test normal, heel gray test normal, no aphasia, no dysarthria. Initial Vital Signs Initial Vital Signs: Vital Signs Pulse Rate 88 05/13/25 10:52 Pulse Oximetry 97 05/13/25 10:52 Scores NIH Stroke Scale Level of Conciousness: Alert, keenly responsive Ask month/age: Answers both questions correctly. Open/close eyes, close hand: Performs both tasks correctly Best gaze horizontal: Normal Visual tang: No visual loss Facial palsy: Normal symetrical movement Left arm drift: No drift for full 10 sec Right arm drift: No drift for full 10 sec Left leg drift: No drift for full 5 sec Right leg drift: No drift for full 5 sec Limb ataxia: Absent Sensory on face/arms/legs: Normal, no sensory loss Best language: No aphasia, normal Dysarthria: Normal Extinction or inattention: No abnormality Total NIH Stroke scale score: 0 Course Orders Ordered: Discontinued Medications Ondansetron HCl (Ondansetron 4 Mg/2 Ml Inj) 4 mg IV NOW PRN PRN Reason: Nausea And Vomiting Ondansetron HCl (Ondansetron 4 Mg Odt) 4 mg PO NOW PRN PRN Reason: Nausea And Vomiting Vital Signs Vital signs: Vital Signs - 8 hr 05/13/25 10:52 05/13/25 10:53 05/13/25 10:53 Temperature Pulse Rate 88 86 Respiratory Rate Blood Pressure 142/81 H Pulse Oximetry 97 95 Oxygen Delivery Method 05/13/25 11:00 05/13/25 11:00 05/13/25 11:30 Temperature 97.8 F Pulse Rate 91 H 80 78 Respiratory Rate 14 31 H 20 Blood Pressure 147/81 H Pulse Oximetry 97 96 95 Oxygen Delivery Method Room Air 05/13/25 11:30 Temperature Pulse Rate Respiratory Rate Blood Pressure 101/60 Pulse Oximetry Oxygen Delivery Method Medical Decision Making Lab Data 05/13/25 10:57 05/13/25 10:57 Labs: Lab Results 05/13/25 Range/Units 10:57 WBC 8.5 (4.5-11.0) X10^3/uL RBC 4.90 (4.5-5.9) X10^6/uL Hgb 15.3 (13.5-17.5) g/dL Hct 46.3 (41-53) % MCV 94.4 (80-100) fL MCH 31.3 (26-34) PG MCHC 33.1 (30-36) % RDW 14.0 (11.6-14.8) % Plt Count 256 (150-400) X10^3/uL Neut % (Auto) 71.3 (50-75) % Lymph % (Auto) 15.7 L (25-40) % [place] % (Auto) 10.2 (3-14) % Eos % (Auto) 2.3 (2-4) % Baso % (Auto) 0.5 (0-2) % Neut # (Auto) 6100 (1197-4117) /uL Lymph # (Auto) 1300 (0448-5161) /uL [place] # (Auto) 900 (0-900) /uL Eos # (Auto) 200 (0-450) /uL Baso # (Auto) 0 (0-100) /uL PT 19.2 H (9.4-12.5) SECONDS INR 1.7 H (0.9-1.3) APTT 35 (25.1-36.5) SECONDS Sodium 135 L (137-145) mmol/L Potassium 4.8 (3.4-5.1) mmol/L Chloride 106 (98-107) mmol/L Carbon Dioxide 23 (22-32) mmol/L BUN 30 H (9-20) mg/dL Creatinine 1.25 (0.66-1.25) mg/dL Estimated GFR 56 L (>60) mL/min BUN/Creatinine Ratio 24.0 H (6-22) Glucose 97 (70-99) mg/dL Calcium 8.7 (8.4-10.2) mg/dL Total Bilirubin 1.9 H (0.2-1.3) mg/dL AST 35 (17-59) IU/L ALT 29 (<50) IU/L Alkaline Phosphatase 73 (38-126) U/L Total Creatine Kinase 36 L (55-170) U/L Troponin I < 0.012 (0.01-0.034) ng/mL Total Protein 6.8 (6.3-8.2) g/dL Albumin 3.9 (3.5-5.0) g/dL Globulin 2.9 (1.7-4.1) g/dL Albumin/Globulin Ratio 1.3 (1.0-2.8) Urine Dip Bedside Urine Glucose 1000 mg/dl Bedside Urine Bilirubin - Negative Bedside Urine Ketone - Negative Urine Specific Graham 1.015 Bedside Urine Occult Blood - Negative Bedside Urine pH 6.0 Bedside Urine Protein - Negative Bedside Urine Urobilinogen +/- 1mg Bedside Urine Nitrite - Negative Bedside Urine Leukocytes - Negative Esterase Point of care testing: Urine Dip Bedside Urine Glucose 1000 mg/dl Bedside Urine Bilirubin - Negative Bedside Urine Ketone - Negative Urine Specific Graham 1.015 Bedside Urine Occult Blood - Negative Bedside Urine pH 6.0 Bedside Urine Protein - Negative Bedside Urine Urobilinogen +/- 1mg Bedside Urine Nitrite - Negative Bedside Urine Leukocytes - Negative Esterase ECG Data Attestation: I personally reviewed and interpreted this ECG as follows: Prior ECG tracings: available for review Interpretation: AFib rate of 78 QRS 82 QTC 4 or 5, no acute ST elevation depression noted. Patient has prior from 04/08/2025 that shows similar with the atrial fibrillation no acute ST changes noted. MDM Narrative Medical decision making narrative: EKG atrial fibrillation rate controlled no acute ST changes compared to prior from March of 2025. Labs show normal white count, hemoglobin and platelets, INR is 1.7, BUN 30 sodium is 135 electrolytes are otherwise appropriate BUN 1.25 appears consistent with prior, bilirubin is 1.9 also elevated on prior, LFTs are otherwise normal, troponin is less than 0.012 Chest x-ray no acute cardiopulmonary abnormality. Basilar predominant peripheral reticulation probably senescent fibrosis. Calcified granuloma. No consolidation. Head CT, no acute intracranial pathology, stable moderate small-vessel ischemic change chronic left anterior ethmoid and sphenoid sinusitis with the associated bony sclerosis as well as chronic anterior left mastoid opacification. 84-year-old male with a complaint of lightheadedness which he states been longstanding but had had change in pattern as he noticed it upon awakening this morning which he was atypical states vision seemed a little bit less clear denies other symptoms NIH scale is 0. EKG shows no acute change non-con head CT does not show any acute change chest x-ray shows some probable senescent fibrosis consistent with the patient's history, his lab workup shows an INR 1.7 he was subtherapeutic but was checked yesterday and they already readjusting his dosing. Patient did note a little bit decreased urine output dehydration maybe a component of worsening of his typical symptoms did discuss stroke seems lower on his differential with a negative NIH patient is ambulating normally. Discussed obtaining MR to rule out stroke although this seems lower on the differential but patient politely defers and will return home and continue with the current therapies. Discharge Plan Departure Patient Disposition: Home Clinical Impression: Lightheadedness Instructions: DI for Dizziness-Nonvertigo Activity Restrictions/Additional Instructions: Follow up with your physician as needed. Your labs did show your INR was not therapeutic at 1.7 today, it sounds like they are currently adjusting your medication to get you to a therapeutic level. Make sure you are drinking plenty of fluids especially if you have noted you have had less intake in your urine output has been decreased. Please return if you have new or worsening changes, severe headaches, sudden vision changes, new weakness, numbness or loss of sensation, difficulty with speech or movement or other new or concerning changes. Prescriptions: No Action multivitamin [Multiple Vitamins] 1 EACH tablet 1 tab PO DAILY Qty: 0 cholecalciferol (vitamin D3) [Vitamin D3] 2,000 UNIT tablet 2,000 unit PO DAILY Qty: 0 finasteride 5 mg tablet 5 mg PO Q OTHER DAY Qty: 45 3RF tamsulosin 0.4 mg capsule 0.4 mg PO BID Qty: 180 3RF Rx Instructions: 30 minutes following the same meal each day warfarin 5 mg tablet See Rx Instructions .ROUTE .COMPLEX Qty: 108 3RF Protocol: Dose Management Condition: Monday (Week One) Dose/Route: 2.5 mg Instruction: 0.5 x 5 mg tablets Condition: Monday Dose/Route: 2.5 mg Instruction: 0.5 x 5 mg tablets Condition: Monday Dose/Route: 5 mg Instruction: 1 x 5 mg tablet Condition: Monday Dose/Route: 2.5 mg Instruction: 0.5 x 5 mg tablets Condition: Dose/Route: 2.5 mg Instruction: 0.5 x 5 mg tablets Condition: Monday Dose/Route: 2.5 mg Instruction: 0.5 x 5 mg tablets Condition: Monday Dose/Route: 5 mg Instruction: 1 x 5 mg tablet Condition: Monday (Week Two) Dose/Route: 2.5 mg Instruction: 0.5 x 5 mg tablets Condition: Monday Dose/Route: 2.5 mg Instruction: 0.5 x 5 mg tablets Condition: Monday Dose/Route: 5 mg Instruction: 1 x 5 mg tablet Condition: Monday Dose/Route: 2.5 mg Instruction: 0.5 x 5 mg tablets Condition: Dose/Route: 2.5 mg Instruction: 0.5 x 5 mg tablets Condition: Monday Dose/Route: 2.5 mg Instruction: 0.5 x 5 mg tablets Condition: Monday Dose/Route: 5 mg Instruction: 1 x 5 mg tablet Protocol Text: Adjustment Start Date: Monday05/13/25 INR Value: 1.8 INR Date: 05/13/25 Recheck Date: 05/27/25 Dose Instruction: Take 1/2 tablet daily except on and Mon take 1 or as directed by doctor ; Rx Instructions: Take 1 tablet (5mg total) on Monday and Monday. Take 1/2 tablet (2.5 mg total) all other days; or as directed. melatonin 10 mg tablet 10 mg PO BEDTIME PRN empagliflozin 10 mg tablet 10 mg PO DAILY Qty: 90 0RF spironolactone 25 mg tablet 25 mg PO DAILY omega 7-ypl-wib-fish oil [Fish Oil] 1,200 (144-216) mg capsule PO DAILY PRN metoprolol succinate 50 mg tablet extended release 24 hr 50 mg PO .HS Qty: 90 3RF furosemide 20 mg tablet 20 mg PO QAM metoprolol succinate 25 mg tablet extended release 24 hr 12.5 mg PO .am Iron High Potency 27 mg tablet 27 mg PO DAILY Patient Comments: Iron High Potency 240mg (27mg iron) Ocuvite 30unit 5mg 150mg 1 cap PO DAILY albuterol sulfate 90 mcg/actuation HFA aerosol inhaler 2 puff inhalation Q6H PRN (Reason: shortness of breath or wheezing) Qty: 8.5 6RF atorvastatin 10 mg tablet 10 mg PO DAILY Referrals: Alejandro Pinto DO [Primary Care Provider, Family Practice] Stand Alone Forms: Patient Portal/API
[2025-05-13 11:27] LABS: Troponin I < 0.012 ng/mL (0.01-0.034)
[2025-05-13 11:30] VITALS: BP 101/60; PULSE 78; RESP 20; O2SAT 95
[2025-05-13 12:27] VITALS: BP 107/66; PULSE 81; RESP 19; TEMP 37; O2SAT 94
== END 2025-05-13 12:29 | disposition home or self-care (01) ==
PROVIDERS: Emergency Provider Emergency Medicine; Family Provider Family Medicine; PCP Family Medicine
DX: R42 Dizziness and giddiness (principal); H53.9 Unspecified visual disturbance; I48.91 Unspecified atrial fibrillation; Z79.01 Long term (current) use of anticoagulants
CPT/HCPCS: 36415; 70450; 71045; 80053; 81003; 82550; 84484; 85025; 85610; 85730; 93005; 93010; 99283; 99284

== ENCOUNTER 2025-09-01 09:49 | Emergency (ER) | payer MEDICARE, OTHER, SELFPAY ==
[2025-03-05 11:11] VITALS: BMI 23.5
[2025-09-01] VITALS (9 sets, daily range): BP systolic 135–145; BP diastolic 67–86; PULSE 72–116; RESP 18–32; TEMP 36.5; O2SAT 88–99; BMI 21.8
--- NOTE | 2025-09-01 10:12 | DI.RAD.S_ITS ---
PROCEDURE: XR CHEST 1V INDICATIONS: Chest Pain TECHNIQUE: One view of the chest was acquired. COMPARISON: [facility], CR, XR CHEST 1V, 07/05/2025, 18:47. FINDINGS: Surgical changes and devices: None. Lungs and pleura: Calcified pleural plaques, calcified granulomatous disease. Mild chronic interstitial prominence. Mediastinum: Mediastinal contours appear normal. Heart size is normal. Bones and chest wall: No suspicious bony lesions. Overlying soft tissues appear unremarkable. IMPRESSION: Mild chronic interstitial prominence. Calcified plaques. Dictated by: Benjamín Ding M.D. on 09/01/2025 at 11:09 Approved by: Benjamín Ding M.D. on 09/01/2025 at 11:09
--- NOTE | 2025-09-01 10:12 | EKG_ITS ---
[place] [id number] [place] [id number] Test Date: 2025-09-01 Pat Name: Nestor Mercedes Department: [facility] Room: Gender: Male Pst Specialist: BELIA : 1940 Requested By: Order Number: [id number] Reading MD: Lobo Menjivar MD Measurements Intervals [place] Rate: 77 P: MN: QRS: -8 QRSD: 90 T: -7 QT: 372 QTc: 420 Interpretive Statements Atrial fibrillation Electronically Signed On 09-01-2025 11:57:47 PDT by Lobo Menjivar MD
[2025-09-01 10:37] LABS: Add Manual Diff / Slide Review NO; Hematocrit 47.8 % (41-53); Hemoglobin 16.1 g/dL (13.5-17.5); Lymphocytes Absolute Auto 1100 /uL (1100-4500); Mean Corpuscular HGB Conc 33.8 % (30-36); Mean Corpuscular Hemoglobin 31.6 PG (26-34); Mean Corpuscular Volume 93.5 fL (80-100); Platelet Count 247 X10^3/uL (150-400)
[2025-09-01 10:39] LABS: INR 3.5 (0.9-1.3); Prothrombin Time 38.0 SECONDS (9.4-12.5)
[2025-09-01 10:44] LABS: Alanine Aminotransferase 30 IU/L (<50); Albumin 4.1 g/dL (3.5-5.0); Albumin Globulin Ratio 1.4 (1.0-2.8); Alkaline Phosphatase 71 U/L (38-126); Blood Urea Nitrogen 27 mg/dL (9-20); Calcium 8.7 mg/dL (8.4-10.2); Carbon Dioxide 24 mmol/L (22-32); Chloride 104 mmol/L (98-107); Creatine Kinase 38 U/L (55-170); Estimated Glomerular Filt Rate 49 mL/min (>60); Globulin 3.0 g/dL (1.7-4.1); Glucose 98 mg/dL (70-99); HEMOLYSIS < 15 (0-50); Lipase 274 U/L (23-300); Magnesium 2.3 mg/dL (1.6-2.3); Potassium 4.5 mmol/L (3.4-5.1); Sodium 136 mmol/L (137-145); Total Protein 7.1 g/dL (6.3-8.2)
[2025-09-01 10:47] LABS: PTT Partial Thromboplastin Tim 47 SECONDS (25.1-36.5)
[2025-09-01 10:55] LABS: NT-proBNP (BNP-Adult 18+) 1740 pg/mL (<450); Troponin I < 0.012 ng/mL (0.01-0.034)
--- NOTE | 2025-09-01 12:02 | ED.DIZZY ---
HPI - Dizziness <Belen Simon PA-C - Last Filed: 09/02/25 12:41> General Chief Complaint: Dizziness Stated Complaint: Light headed, off balance, vision problems Time Seen by Provider: 09/01/25 11:53 Source: patient Mode of arrival: Ambulatory History of Present Illness HPI Narrative: 85-year-old male with past medical history atrial fibrillation, aortic stenosis, CHF, ataxia, BPH, hypertension, hyperlipidemia presents to the ED with 1 day of lightheadedness, blurry vision. Patient states that he has chronically had lightheadedness, intermittent blurry vision. Patient has been seen for the same complaints in the ED multiple times as well. Patient states that upon awakening today morning, he felt lightheaded when he went from sitting to standing and felt his vision to be blurry. No chest pain, shortness of breath. No loss of consciousness. Denies fever, chills, nausea, vomiting, abdominal pain, dysuria, dizziness. Related Data Home Medications ?Medication ?Instructions ?Recorded ?Confirmed multivitamin (Multiple Vitamins 1 tab PO DAILY ##0 03/06/13 09/08/25 tablet) Iron High Potency 27 mg PO DAILY 04/09/19 09/08/25 Ocuvite 30unit 5mg 150mg 1 cap PO DAILY 04/09/19 09/08/25 melatonin 10 mg tablet 10 mg PO BEDTIME PRN 01/25/23 09/08/25 spironolactone 25 mg tablet 25 mg PO DAILY 12/18/24 09/08/25 furosemide 20 mg tablet 20 mg PO QAM 02/20/25 09/08/25 omega 2-sxv-nyf-fish oil 1,200 mg cap PO DAILY PRN 02/20/25 09/08/25 (144 mg-216 mg) capsule (Fish Oil) empagliflozin 10 mg tablet 10 mg PO DAILY 05/30/25 09/08/25 (Jardiance) atorvastatin 40 mg tablet 40 mg PO DAILY 07/16/25 09/08/25 cholecalciferol (vitamin D3) 50 4,000 unit PO DAILY #0 tabs 07/16/25 09/08/25 mcg (2,000 unit) tablet (Vitamin D3) metoprolol succinate 25 mg 25 mg PO BEDTIME 07/16/25 09/08/25 tablet,extended release 24 hr metoprolol succinate 50 mg 50 mg PO DAILY 07/16/25 09/08/25 tablet,extended release 24 hr tamsulosin 0.4 mg capsule 0.8 mg PO BEDTIME 07/16/25 09/08/25 Previous Rx's ?Medication ?Instructions ?Recorded albuterol sulfate 90 mcg/actuation 2 puff inhalation Q6H PRN 05/31/24 aerosol inhaler shortness of breath or wheezing #8.5 grams finasteride 5 mg tablet 5 mg PO Q OTHER DAY #45 tabs 01/16/25 warfarin 5 mg tablet See Rx Instructions .Route 07/16/25 .COMPLEX #108 tabs Allergies Allergy/AdvReac Type Severity Reaction Status Date / Time No Known Drug Allergies Allergy Verified 09/08/25 16:15 Review of Systems <Belen Simon PA-C - Last Filed: 09/02/25 12:41> Constitutional Constitutional: Denies chills, Denies fatigue, Denies fever(s), Denies frequent falls, Denies lethargy and Denies weakness Eyes Eyes: Reports blurry vision, Denies change in vision, Denies eye discharge, Denies irritation and Denies loss of vision ENT Ears, Nose, Mouth, and Throat: Denies change in voice, Denies dizziness, Denies neck pain, Denies sore throat and Denies throat swelling Cardiovascular Cardiovascular: Denies chest pain, Denies irregular heart rhythm, Reports lightheadedness, Denies palpitations, Denies dyspnea, Denies dyspnea on exertion and Denies orthopnea Respiratory Respiratory: Denies cough, Denies dyspnea, Denies dyspnea on exertion and Denies wheezing Gastrointestinal Gastrointestinal: Denies abdominal pain, Denies change in bowel habits, Denies diarrhea, Denies nausea and Denies vomiting Musculoskeletal Musculoskeletal: Denies neck pain and Denies numbness Integumentary/Breasts Skin/Breast: Denies pruritus, Denies erythema, Denies rash and Denies wounds Neurologic Neurologic: Denies behavioral changes, Denies confusion, Denies dizziness, Denies frequent falls, Denies loss of vision, Denies numbness and Denies weakness Psychiatric Psychiatric: Denies anxiety, Denies behavioral changes, Denies confusion, Denies depression, Denies homicidal ideation and Denies suicidal ideation Endocrine Endocrine: Denies fatigue, Denies flushing and Denies palpitations Hematologic/Lymphatic Hematologic/Lymphatic: Denies easy bruising Allergic/Immunologic Allergic/Immunologic: Denies urticaria, Denies throat swelling and Denies wheezing Patient History <Belen Simon PA-C - Last Filed: 09/02/25 12:41> Medical History Breast lump Atypical pneumonia Hypoxia Somatic dysfunction of lower extremity Segmental and somatic dysfunction of abdomen and other regions Strain of right psoas muscle Anxiety about health Foot joint stiffness, bilateral Orthostatic hypotension Blurry vision, bilateral Insomnia COVID-19 virus infection Elevated random blood glucose level Aortic stenosis, severe Anticoagulated on warfarin Physician orders for life-sustaining treatment (POLST) form indicates patient wish for ew-lxe-crnbanvhzvh status Benign prostatic hyperplasia with urinary obstruction Fatigue Erectile dysfunction History of elevated PSA Balance problem Left arm weakness Vitamin D deficiency Pelvic somatic dysfunction Segmental and somatic dysfunction of sacral region Segmental and somatic dysfunction of lumbar region Chronic bilateral low back pain without sciatica Somatic dysfunction of both lower extremities Foot stiffness Segmental and somatic dysfunction of thoracic region Segmental and somatic dysfunction of rib cage Cervical somatic dysfunction Cranial somatic dysfunction Diplopia Chronic atrial fibrillation (01/02/18) Essential hypertension (02/16/16) 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) Incomplete emptying of bladder (02/16/16) Atrial fibrillation with rapid ventricular response Surgical History Hx of cholecystectomy Status post cholecystectomy Family History Mother CVA (cerebral vascular accident) Father Diabetes mellitus Brother Renal failure Social History marital status: number of children: 1 household members: none occupational status: previously employed Previous occupational history: [email or web address] Smoking Status: Former smoker alcohol intake: former caffeine: Yes alcohol intake frequency: holidays/special occasions only Exam <Belen Simon PA-C - Last Filed: 09/02/25 12:41> Narrative Exam Narrative: Const General:?cooperative, healthy appearing and comfortable [facility] Head:?normal to inspection Ears:?hearing grossly normal bilaterally Nose:?external nose normal Face and sinus:?normal facial exam and sinuses nontender Mouth:?oral mucosae normal Throat:?posterior oropharynx normal Eyes General:?appearance normal, both eyes and all related structures; vision grossly normal Neck Neck:?normal visual inspection and no lymphadenopathy noted Resp Effort & Inspection:?normal respiratory effort Auscultation:?clear to auscultation bilaterally Cardio Rate:?regular rate Rhythm:?regular rhythm Neuro General:?patient alert, patient awake and patient oriented x3; CN 2-12 intact bilaterally; gait normal Initial Vital Signs Initial Vital Signs: Vital Signs Temperature 97.7 F 09/01/25 09:56 Pulse Rate 78 09/01/25 09:56 Respiratory Rate 20 09/01/25 09:56 Blood Pressure 142/74 H 09/01/25 09:56 Pulse Oximetry 99 09/01/25 09:56 Oxygen Delivery Method Nasal Cannula 09/01/25 09:56 Oxygen Flow Rate 2 09/01/25 09:56 <Jimy Campuzano MD - Last Filed: 09/09/25 23:47> Initial Vital Signs Initial Vital Signs: Vital Signs Temperature 97.7 F 09/01/25 09:56 Pulse Rate 78 09/01/25 09:56 Respiratory Rate 20 09/01/25 09:56 Blood Pressure 142/74 H 09/01/25 09:56 Pulse Oximetry 99 09/01/25 09:56 Oxygen Delivery Method Nasal Cannula 09/01/25 09:56 Oxygen Flow Rate 2 09/01/25 09:56 Course <Belen Simon PA-C - Last Filed: 09/02/25 12:41> Orders Ordered: Discontinued Medications Aspirin (Aspirin 81 Mg Chew Tab) 324 mg PO NOW ONE Stop: 09/01/25 10:13 Furosemide (Furosemide 40 Mg/4 Ml Vial) 40 mg IV NOW ONE Stop: 09/01/25 12:23 Last Admin: 09/01/25 12:39 Dose: 40 mg Documented By: BZ Vital Signs Vital signs: Vital Signs - 8 hr 09/01/25 09:56 Temperature 97.7 F Pulse Rate 78 Respiratory Rate 20 Blood Pressure 142/74 H Pulse Oximetry 99 Oxygen Delivery Method Nasal Cannula Oxygen Flow Rate 2 <Jimy Campuzano MD - Last Filed: 09/09/25 23:47> Orders Ordered: Discontinued Medications Aspirin (Aspirin 81 Mg Chew Tab) 324 mg PO NOW ONE Stop: 09/01/25 10:13 Furosemide (Furosemide 40 Mg/4 Ml Vial) 40 mg IV NOW ONE Stop: 09/01/25 12:23 Last Admin: 09/01/25 12:39 Dose: 40 mg Documented By: BELIA Vital Signs Vital signs: Vital Signs - 8 hr 09/01/25 09:56 Temperature 97.7 F Pulse Rate 78 Respiratory Rate 20 Blood Pressure 142/74 H Pulse Oximetry 99 Oxygen Delivery Method Nasal Cannula Oxygen Flow Rate 2 MDM - Dizziness <Belen Simon PA-C - Last Filed: 09/02/25 12:41> Lab Data 09/01/25 10:09/01/25 10:25 Labs: Lab Results 09/01/25 09/01/25 Range/Units 10: 11:42 WBC 6.1 (4.5-11.0) X10^3/uL RBC 5.11 (4.5-5.9) X10^6/uL Hgb 16.1 (13.5-17.5) g/dL Hct 47.8 (41-53) % MCV 93.5 (80-100) fL MCH 31.6 (26-34) PG MCHC 33.8 (30-36) % RDW 14.2 (11.6-14.8) % Plt Count 247 (150-400) X10^3/uL Neut % (Auto) 68.7 (50-75) % Lymph % (Auto) 18.2 L (25-40) % Schuyler % (Auto) 9.8 (3-14) % Eos % (Auto) 2.7 (2-4) % Baso % (Auto) 0.6 (0-2) % Neut # (Auto) 4200 (8748-5531) /uL Lymph # (Auto) 1100 (3763-9199) /uL Schuyler # (Auto) 600 (0-900) /uL Eos # (Auto) 200 (0-450) /uL Baso # (Auto) 0 (0-100) /uL PT 38.0 H (9.4-12.5) SECONDS INR 3.5 H (0.9-1.3) APTT 47 H (25.1-36.5) SECONDS Sodium 136 L (137-145) mmol/L Potassium 4.5 (3.4-5.1) mmol/L Chloride 104 (98-107) mmol/L Carbon Dioxide 24 (22-32) mmol/L BUN 27 H (9-20) mg/dL Creatinine 1.39 H (0.66-1.25) mg/dL Estimated GFR 49 L (>60) mL/min BUN/Creatinine Ratio 19.4 (6-22) Glucose 98 (70-99) mg/dL Calcium 8.7 (8.4-10.2) mg/dL Magnesium 2.3 (1.6-2.3) mg/dL Total Bilirubin 2.1 H (0.2-1.3) mg/dL AST 32 (17-59) IU/L ALT 30 (<50) IU/L Alkaline Phosphatase 71 (38-126) U/L Total Creatine Kinase 38 L (55-170) U/L Troponin I < 0.012 (0.01-0.034) ng/mL NT-Pro-B Natriuret Pep 1740 H (<450) pg/mL Total Protein 7.1 (6.3-8.2) g/dL Albumin 4.1 (3.5-5.0) g/dL Globulin 3.0 (1.7-4.1) g/dL Albumin/Globulin Ratio 1.4 (1.0-2.8) Lipase 274 (23-300) U/L Urine Color Yellow Urine Appearance Clear Urine pH 6.0 (4.5-8.0) Ur Specific Hope 1.015 (1.000-1.035) Urine Protein Negative (Negative) Urine Glucose (UA) 3+ H (Negative) g/dL Urine Ketones Negative (NEGATIVE) Urine Occult Blood Negative (Negative) Urine Nitrate Negative (Negative) Urine Bilirubin Negative (NEGATIVE) Urine Urobilinogen 0.2 (0.2) E.U./dL Ur Leukocyte Esterase Negative (NEGATIVE) Urine RBC None seen (0-5/HPF) Urine WBC None seen (0-5/HPF) Ur Squamous Epith Cells None seen (0-5/HPF) Urine Bacteria None seen (None) Ur Culture Indicated? Cult not indicated Vol Urine Centrifuged 10ml (spun) MDM Narrative Medical decision making narrative: 85-year-old male with past medical history atrial fibrillation, aortic stenosis, ataxia, BPH, hypertension, hyperlipidemia presents to the ED with 1 day of lightheadedness, blurry vision. Physical exam is reassuring, patient is neuro intact. Patient also states his blurriness is almost resolved at this time. Concern for TIA versus CHF exacerbation versus ACS versus infectious etiology versus other. Chest x-ray was obtained which shows mild chronic interstitial prominence. Calcified plaques. CT head with no acute intracranial pathology. CTA head and neck with no significant intracranial arterial abnormality. Chronic sphenoid sinus disease. EKG shows atrial fibrillation, no acute ST-T changes. Labs show elevated creatinine at 1.39, reduced GFR at 49. Both these are at baseline for patient. Bilirubin elevated to 2.1, also baseline for patient. Troponin within normal limits. BNP elevated to 1740, elevated from 26/11 0 from prior. UA without UTI. Given that patient is BNP is elevated from priors, will give furosemide 40 mg IV. Patient endorses feeling better. Discussed findings with patient. It is possible that patient's furosemide might need to be increased. Recommend follow-up with PCP as soon as possible. ED return precautions were discussed with patient. Patient verbalized understanding. Medical records reviewed: Yes <Jimy Campuzano MD - Last Filed: 09/09/25 23:47> Lab Data Labs: Lab Results 09/01/25 09/01/25 Range/Units : 11:42 WBC 6.1 (4.5-11.0) X10^3/uL RBC 5.11 (4.5-5.9) X10^6/uL Hgb 16.1 (13.5-17.5) g/dL Hct 47.8 (41-53) % MCV 93.5 (80-100) fL MCH 31.6 (26-34) PG MCHC 33.8 (30-36) % RDW 14.2 (11.6-14.8) % Plt Count 247 (150-400) X10^3/uL Neut % (Auto) 68.7 (50-75) % Lymph % (Auto) 18.2 L (25-40) % Schuyler % (Auto) 9.8 (3-14) % Eos % (Auto) 2.7 (2-4) % Baso % (Auto) 0.6 (0-2) % Neut # (Auto) 4200 (4353-7523) /uL Lymph # (Auto) 1100 (5085-8808) /uL Schuyler # (Auto) 600 (0-900) /uL Eos # (Auto) 200 (0-450) /uL Baso # (Auto) 0 (0-100) /uL PT 38.0 H (9.4-12.5) SECONDS INR 3.5 H (0.9-1.3) APTT 47 H (25.1-36.5) SECONDS Sodium 136 L (137-145) mmol/L Potassium 4.5 (3.4-5.1) mmol/L Chloride 104 (98-107) mmol/L Carbon Dioxide 24 (22-32) mmol/L BUN 27 H (9-20) mg/dL Creatinine 1.39 H (0.66-1.25) mg/dL Estimated GFR 49 L (>60) mL/min BUN/Creatinine Ratio 19.4 (6-22) Glucose 98 (70-99) mg/dL Calcium 8.7 (8.4-10.2) mg/dL Magnesium 2.3 (1.6-2.3) mg/dL Total Bilirubin 2.1 H (0.2-1.3) mg/dL AST 32 (17-59) IU/L ALT 30 (<50) IU/L Alkaline Phosphatase 71 (38-126) U/L Total Creatine Kinase 38 L (55-170) U/L Troponin I < 0.012 (0.01-0.034) ng/mL NT-Pro-B Natriuret Pep 1740 H (<450) pg/mL Total Protein 7.1 (6.3-8.2) g/dL Albumin 4.1 (3.5-5.0) g/dL Globulin 3.0 (1.7-4.1) g/dL Albumin/Globulin Ratio 1.4 (1.0-2.8) Lipase 274 (23-300) U/L Urine Color Yellow Urine Appearance Clear Urine pH 6.0 (4.5-8.0) Ur Specific Hope 1.015 (1.000-1.035) Urine Protein Negative (Negative) Urine Glucose (UA) 3+ H (Negative) g/dL Urine Ketones Negative (NEGATIVE) Urine Occult Blood Negative (Negative) Urine Nitrate Negative (Negative) Urine Bilirubin Negative (NEGATIVE) Urine Urobilinogen 0.2 (0.2) E.U./dL Ur Leukocyte Esterase Negative (NEGATIVE) Urine RBC None seen (0-5/HPF) Urine WBC None seen (0-5/HPF) Ur Squamous Epith Cells None seen (0-5/HPF) Urine Bacteria None seen (None) Ur Culture Indicated? Cult not indicated Vol Urine Centrifuged 10ml (spun) MDM Narrative Medical decision making narrative: 85-year-old male with past medical history atrial fibrillation, aortic stenosis, ataxia, BPH, hypertension, hyperlipidemia presents to the ED with 1 day of lightheadedness, blurry vision. Physical exam is reassuring, patient is neuro intact. Patient also states his blurriness is almost resolved at this time. Concern for TIA versus CHF exacerbation versus ACS versus infectious etiology versus other. Chest x-ray was obtained which shows mild chronic interstitial prominence. Calcified plaques. CT head with no acute intracranial pathology. CTA head and neck with no significant intracranial arterial abnormality. Chronic sphenoid sinus disease. EKG shows atrial fibrillation, no acute ST-T changes. Labs show elevated creatinine at 1.39, reduced GFR at 49. Both these are at baseline for patient. Bilirubin elevated to 2.1, also baseline for patient. Troponin within normal limits. BNP elevated to 1740, elevated from 14 0 from prior. UA without UTI. Given that patient is BNP is elevated from priors, will give furosemide 40 mg IV. Patient endorses feeling better. Discussed findings with patient. It is possible that patient's furosemide might need to be increased. Recommend follow-up with PCP as soon as possible. ED return precautions were discussed with patient. Patient verbalized understanding. Medical records reviewed: Yes I was available for consultation at all times during the patient visible was not involved with the care. Discharge Plan Departure Patient Disposition: Home Clinical Impression: Lightheadedness Instructions: DI for Dizziness-Nonvertigo Activity Restrictions/Additional Instructions: You were evaluated in the emergency department for lightheadedness and some blurry vision. It appears that you are BNP is slightly elevated, which indicates worsening congestive heart failure, which could also contribute to lightheadedness. You were given an extra dose of furosemide which is the water pill today. Please follow-up with your PCP as soon as possible for further evaluation and see if your furosemide dosage needs to be increased. Return to the ED if you have worsening symptoms, chest pain, shortness of breath. Prescriptions: No Action multivitamin [Multiple Vitamins] 1 EACH tablet 1 tab PO DAILY Qty: 0 finasteride 5 mg tablet 5 mg PO Q OTHER DAY Qty: 45 3RF cholecalciferol (vitamin D3) [Vitamin D3] 50 mcg (2,000 unit) tablet 4,000 unit PO DAILY Qty: 0 Jardiance 10 mg tablet 10 mg PO DAILY atorvastatin 40 mg tablet 40 mg PO DAILY metoprolol succinate 50 mg tablet extended release 24 hr 50 mg PO DAILY metoprolol succinate 25 mg tablet extended release 24 hr 25 mg PO BEDTIME tamsulosin 0.4 mg capsule 0.8 mg PO BEDTIME Rx Instructions: 30 minutes following the same meal each day warfarin 5 mg tablet See Rx Instructions .ROUTE .COMPLEX Qty: 108 3RF Protocol: Dose Management Condition: Monday (Week One) Dose/Route: 2.5 mg Instruction: 0.5 x 5 mg tablets Condition: Monday Dose/Route: 2.5 mg Instruction: 0.5 x 5 mg tablets Condition: Monday Dose/Route: 5 mg Instruction: 1 x 5 mg tablet Condition: Monday Dose/Route: 2.5 mg Instruction: 0.5 x 5 mg tablets Condition: Dose/Route: 2.5 mg Instruction: 0.5 x 5 mg tablets Condition: Monday Dose/Route: 2.5 mg Instruction: 0.5 x 5 mg tablets Condition: Monday Dose/Route: 5 mg Instruction: 1 x 5 mg tablet Condition: Monday (Week Two) Dose/Route: 2.5 mg Instruction: 0.5 x 5 mg tablets Condition: Monday Dose/Route: 2.5 mg Instruction: 0.5 x 5 mg tablets Condition: Monday Dose/Route: 5 mg Instruction: 1 x 5 mg tablet Condition: Monday Dose/Route: 2.5 mg Instruction: 0.5 x 5 mg tablets Condition: Dose/Route: 2.5 mg Instruction: 0.5 x 5 mg tablets Condition: Monday Dose/Route: 2.5 mg Instruction: 0.5 x 5 mg tablets Condition: Monday Dose/Route: 5 mg Instruction: 1 x 5 mg tablet Protocol Text: Adjustment Start Date: Monday08/26/25 INR Value: 2.7 INR Date: 08/26/25 Recheck Date: 09/23/25 Dose Instruction: Take 1/2 tablet daily except on and Sat take 1 or as directed by doctor ; Rx Instructions: Take 1 tablet (5mg total) on Monday and Monday. Take 1/2 tablet (2.5 mg total) all other days; or as directed. melatonin 10 mg tablet 10 mg PO BEDTIME PRN spironolactone 25 mg tablet 25 mg PO DAILY omega 0-qqa-var-fish oil [Fish Oil] 1,200 (144-216) mg capsule PO DAILY PRN furosemide 20 mg tablet 20 mg PO QAM Iron High Potency 27 mg tablet 27 mg PO DAILY Patient Comments: Iron High Potency 240mg (27mg iron) Ocuvite 30unit 5mg 150mg 1 cap PO DAILY albuterol sulfate 90 mcg/actuation HFA aerosol inhaler 2 puff inhalation Q6H PRN (Reason: shortness of breath or wheezing) Qty: 8.5 6RF Referrals: Alejandro Pinto DO [Primary Care Provider, Family Practice] Stand Alone Forms: Patient Portal/API
--- NOTE | 2025-09-01 12:14 | DI.CT.S_ITS ---
PROCEDURE: CT HEAD/BRAIN WO CON INDICATIONS: Blurry vision TECHNIQUE: Noncontrast 4.5 mm thick angled axial sections acquired from the foramen magnum to the vertex, with coronal and sagittal reformats. For radiation dose reduction, the following was used: automated exposure control, adjustment of mA and/or kV according to patient size. COMPARISON: [facility], CT, CT HEAD/BRAIN WO CON, 07/05/2025, 19:02. FINDINGS: Image quality: Diagnostic. CSF spaces: Basal cisterns are patent. No extra-axial fluid collections. The ventricles are symmetric in size and shape. Brain: Stable findings. No intracranial bleeds or mass effect. There is cerebral volume loss, with resultant ventricular and sulcal prominence. There are moderate to severe periventricular and deep white matter chronic small vessel ischemic changes. There is intracranial internal carotid artery atherosclerosis. Skull and face: Calvarium and visualized facial bones appear intact, without suspicious lesions. Sinuses: Visualized sinuses and mastoids are clear. IMPRESSION: No acute intracranial pathology. Dictated by: Benjamín Ding M.D. on 09/01/2025 at 12:49 Approved by: Benjamín Ding M.D. on 09/01/2025 at 12:50
--- NOTE | 2025-09-01 12:14 | DI.CT.S_ITS ---
PROCEDURE: CT ANGIO HEAD AND NECK INDICATIONS: blurry vision TECHNIQUE: After the administration of intravenous contrast, 1 mm thick sections acquired from the aortic arch through the Berger of [place]. 3-dimensional lbghxlq-kpoboqrju-mimpulbsyq (MIP) and/or volume rendering reformats were acquired of the central intracranial vasculature and neck separately. For radiation dose reduction, the following was used: automated exposure control, adjustment of mA and/or kV according to patient size. COMPARISON: [facility], CT, CT HEAD/BRAIN WO CON, 09/01/2025, 12:25. [facility], CT, CT ANGIO HEAD AND NECK, 07/05/2025, 19:02. FINDINGS: Image quality: Diagnostic. Cerebral CT Angiogram: Internal carotid arteries: No acute findings. Intracranial ICA are patent with no significant stenosis. No occlusion. No aneurysm. Anterior cerebral arteries: Unremarkable. No significant stenosis. No occlusion. No aneurysm. Middle cerebral arteries: Unremarkable. No significant stenosis. No occlusion. No aneurysm. Posterior cerebral arteries: Unremarkable. No significant stenosis. No occlusion. No aneurysm. Basilar artery: Unremarkable. No significant stenosis. No occlusion. No aneurysm. Vertebral arteries: Unremarkable as visualized. Dural venous sinuses: Unremarkable given phase of enhancement. Other: Arterial phase appearance of the brain parenchyma is unremarkable. Neck CT Angiogram: Internal carotid arteries: Unremarkable. No significant stenosis. No dissection or occlusion. Common carotid arteries: Unremarkable. No significant stenosis. No dissection or occlusion. External carotid arteries: Unremarkable. No occlusion. Vertebral arteries: Unremarkable. No significant stenosis. No dissection or occlusion. Aortic Arch and Mediastinum: Partially visualized aortic arch unremarkable without evidence of aneurysm. Origins of the great vessels unremarkable. Other: Chronic subtotal opacification of the sphenoid sinus. There is associated reactive change in the adjacent bone consistent with chronic opacification. Arterial phase soft tissues of the neck and chest are unremarkable. IMPRESSION: No significant intracranial arterial abnormality is seen. No significant abnormality is seen within the arteries of the neck. Chronic sphenoid sinus disease. Any quantitative measurements of stenosis were performed using NASCET criteria. Dictated by: Benjamín Ding M.D. on 09/01/2025 at 12:50 Approved by: Benjamín Ding M.D. on 09/01/2025 at 12:52
[2025-09-01 12:36] LABS: Appearance Urine UA CLEAR; Bilirubin Urine UA NEGATIVE (NEGATIVE); Color Urine UA YELLOW; Glucose Urine UA 3+ g/dL (Negative); Ketones Urine UA NEGATIVE (NEGATIVE); Leukocyte Esterase Urine UA NEGATIVE (NEGATIVE); Nitrite Urine UA NEGATIVE (Negative); Occult Blood Urine UA NEGATIVE (Negative); Protein Urine UA NEGATIVE (Negative); Specific Gravity Urine UA 1.015 (1.000-1.035); Urobilinogen Urine UA 0.2 E.U./dL (0.2); pH Urine UA 6.0 (4.5-8.0)
[2025-09-01] MEDS: FUROSEMIDE 40 MG/4 ML VIAL IV (12:39)
[2025-09-01 12:40] LABS: Culture Indicated Urine Cult Not Indicated
--- NOTE | 2025-09-01 13:58 | PC.NURSE ---
patient not having chest pain - has chronic a-fib and hr wnl
== END 2025-09-01 14:05 | disposition home or self-care (01) ==
PROVIDERS: Emergency Medicine; Emergency Provider Student in an Organized Health Care Education/Training Program; Family Provider Family Medicine; PCP Family Medicine
DX: R42 Dizziness and giddiness (principal); R79.89 Other specified abnormal findings of blood chemistry
CPT/HCPCS: 70450; 70496; 70498; 71045; 80053; 81001; 82550; 83690; 83735; 83880; 84484; 85025; 85610; 85730; 93005; 96374; 99284; J1938; Q9967